=== PATIENT | male | born 1960 | race Caucasian/White ===

== ENCOUNTER 2021-03-27 18:33 | Inpatient (IN) | payer OTHER, SELFPAY ==
--- NOTE | ~2021-03-27 | CT_ITS ---
EXAMINATION: CT ANGIOGRAM HEAD CT ANGIOGRAM NECK CLINICAL INFORMATION: Stroke. COMPARISON: CT head from 03/27/2021. Brain MRI from 10/01/2018. TECHNIQUE: Initial noncontrast barrel line operator imaging of the head and neck was performed. Comparison is made with noncontrast head CT from earlier today. Test bolus sequences followed by intravenous administration 70 mL of Omnipaque 350. Helical imaging was performed in the axial plane from the aortic arch to the skull vertex. Delayed postcontrast imaging of the head was also performed. The data was processed at the cytotechnologist/histotechnologist's workstation for generation of MIP sequences. Angled MIPs and volume rendered reformatted images were also generated at an offline 3D workstation. Stenoses are assessed in accordance with NASCET criteria unless otherwise indicated. This CT examination was performed using dose optimization techniques as appropriate, variously including the following: *Automated exposure control. *Adjustment of mA and/or kV according to patient size (this includes techniques or standardized protocols for targeted exams where dose is matched to indication/reason for exam; i.e. extremities or head). *Use of iterative reconstruction technique. DLP: 1692 mGy-cm FINDINGS: CT Head: There is no evidence of acute intracranial hemorrhage or edematous territorial infarction. A few foci of hypoattenuation in the periventricular and deep white matter are consistent with mild microangiopathy. Garcia-white matter differentiation is preserved. The ventricles are normal in size and configuration. No evidence for obstructive hydrocephalus. No abnormal mass effect or midline shift. No extra-axial fluid collections. No pathologic intra-axial enhancement or regional oligemia. No acute soft tissue or osseous abnormalities. Mild mucosal thickening in the paranasal sinuses. The patient is edentulous. The mastoid air cells and middle ear cavities are well-aerated. CT Neck: The thyroid gland and remaining cervical soft tissues are within normal limits. Mild reversal of the normal cervical lordosis. Mild degenerative anterolisthesis of C3 on C4. Moderate degenerative disc disease from C3-C7 with disc-osteophyte, extrusion. Facet and uncovertebral joint arthropathy leads to osseous encroachment on the neural foramina from C3-C7. CT Upper Chest: The visualized lung apices and upper mediastinum are within normal limits. Neck CTA: Exam is moderately motion degraded. Aortic Arch: Normal contour and caliber. Classic 3 vessel branching pattern of the aortic arch. Great Vessel Origins: No significant stenosis of the branch origins. Right Common Carotid Artery: No focal stenosis or occlusion. Cervical Right Internal Carotid Artery: Mild calcific atherosclerotic disease of the carotid bulb and proximal internal carotid artery without flow-limiting stenosis. Left Common Carotid Artery: No focal stenosis or occlusion. Cervical Left Internal Carotid Artery: Calcific atherosclerotic disease of the carotid bulb and proximal internal carotid artery causing less than 50% stenosis. Cervical Right Vertebral Artery: No focal stenosis or occlusion. Cervical Left Vertebral Artery: Dominant. No focal stenosis or occlusion. Brain CTA: Intracranial Internal Carotid Arteries: Calcific atherosclerotic disease of the intracranial internal carotid arteries without occlusion or flow-limiting stenosis. No focal stenosis or occlusion. Right Anterior Cerebral Artery: Normal A1 segment. Normal opacification of the distal ISABELLA segments. Left Anterior Cerebral Artery: Normal A1 segment. Normal opacification of the distal ISABELLA segments. Anterior Communicating Artery: Slight ectatic appearance of the anterior making artery without overt aneurysm formation. Trifurcation of the anterior to indicating artery. Right Middle Cerebral Artery: Normal M1 segment of the MCA without focal stenosis or occlusion. Normal arborization of the distal segments. Left Middle Cerebral Artery: Normal M1 segment of the MCA without focal stenosis or occlusion. Normal arborization of the distal segments. Right Vertebral Artery: Normal V4 segment. Normal opacification of the proximal segments of the posterior inferior cerebellar artery. Left Vertebral Artery: Normal V4 segment. Normal opacification of the proximal segments of the posterior inferior cerebellar artery. Basilar Artery: Normal without focal stenosis or occlusion. Normal appearance of the proximal superior cerebellar arteries. Right Posterior Cerebral Artery: Normal P1 segment. Normal opacification of the distal PRICK STITCHER segments. Left Posterior Cerebral Artery: Normal P1 segment. Normal posterior communicating artery. Normal opacification of the distal PRICK STITCHER segments. Normal opacification of the superior sagittal, straight, transverse, and sigmoid sinuses. CT/CT angio head neck stroke IMPRESSION: 1. No evidence of acute intracranial hemorrhage or edematous territorial infarction. Mild underlying microangiopathy. 2. CTA of the head and neck without proximal occlusion or flow-limiting stenosis. This critical result was discussed with Dr. Valdivia at 21:23 on 03/27/2021 and it was ascertained that the content and urgency of the report was understood at the time of direct communication.
--- NOTE | ~2021-03-27 | XR_ITS ---
EXAMINATION: PORTABLE CHEST 1 VIEW CLINICAL INFORMATION: stroke . COMPARISON: 04/28/2009. TECHNIQUE: Portable frontal view of the chest was obtained. FINDINGS: The lungs are well expanded. No focal infiltrate, effusion, edema, or pneumothorax. Cardiac and mediastinal silhouettes are within normal limits for technique. No acute bony abnormality seen. XR/XR chest 1V IMPRESSION: No evidence of acute disease.
--- NOTE | ~2021-03-27 | CT_ITS ---
EXAMINATION: CT HEAD WITHOUT CONTRAST (STROKE PROTOCOL) CLINICAL INFORMATION: Stroke protocol. COMPARISON: MRI brain 10/01/2018, CT brain 09/30/2018 TECHNIQUE: Contiguous axial imaging was performed from the skull base to vertex without intravenous administration of contrast. This CT examination was performed using dose optimization techniques as appropriate, variously including the following: *Automated exposure control *Adjustment of mA and/or kV according to patient size (this includes techniques or standardized protocols for targeted exams where dose is matched to indication/reason for exam; i.e. extremities or head) *Use of iterative reconstruction technique DLP: 1066.2 mGy-cm FINDINGS: There is no intracranial hemorrhage, hematoma, or extra-axial fluid collection. The ventricles are normal in size. There is no hydrocephalus, edema, or mass effect. The arguelles-white matter differentiation appears symmetric. There is no acute infarct or mass lesion. Dilated basilar artery is similar to prior MR The calvarium appears intact. There is no pneumocephalus or orbital emphysema. The visualized sinuses and middle ears and mastoid air cells show no significant mucosal thickening. There are no air-fluid levels. There is minimal soft tissue thickening of the scalp, unchanged. CT/CT head for stroke IMPRESSION: No acute intracranial pathology. This critical result was discussed with Dr. Valdivia at 1909 hours on 03/27/2021. It was ascertained that the content and urgency of the report was understood at the time of direct communication.
--- NOTE | 2021-03-27 18:47 | ECG_ITS ---
Test Reason : STROKE Blood Pressure : / mmHG Vent. Rate : 082 BPM Atrial Rate : 082 BPM P-R Int : 122 ms QRS Dur : 094 ms QT Int : 364 ms P-R-T Axes : 024 000 048 degrees QTc Int : 425 ms Normal sinus rhythm Normal ECG When compared with ECG of 29-APR-2009 19:38, T wave inversion no longer evident in Inferior leads Referred By: Jackie Valdivia Electronically Signed By:ANIKET CARAIS
[2021-03-27 18:50] LABS: Glucose, Whole Blood 154 mg/dL (60-115)
--- NOTE | 2021-03-27 18:50 | ED.NEUROSD ---
HPI - Neuro Symptoms/Deficit General Chief Complaint: Stroke Stated Complaint: stroke? Time Seen by Provider: 03/27/21 18:47 Source: patient and family (Spouse) Mode of arrival: ambulatory Limitations: no limitations History of Present Illness HPI Narrative: 60-year-old male brought in by his for having right facial droop that started 13:00 about 6 hours ago, also noted that the patient had slurred speech about 50 minutes ago while eating dinner. Related Data Home Medications Medication Instructions Recorded Confirmed amlodipine 10 mg tablet 1 tab PO DAILY 03/27/21 03/27/21 aspirin 81 mg tablet 81 mg PO BEDTIME 03/27/21 03/27/21 doxazosin 4 mg tablet 1 tab PO DAILY 03/27/21 03/27/21 gabapentin 100 mg capsule 1 cap PO BEDTIME 03/27/21 03/27/21 irbesartan 150 mg tablet 1 tab PO DAILY 03/27/21 03/27/21 tadalafil 20 mg tablet 1 tab PO DAILY PRN 03/27/21 03/27/21 Allergies Allergy/AdvReac Type Severity Reaction Status Date / Time Penicillins Allergy Unknown HIVES Verified 03/27/21 19:44 Review of Systems Review of Systems: All other systems are reviewed and are negative Constitutional: Reports as per HPI and Reports no additional constitutional complaints Eyes: Reports as per HPI and Reports no additional eye complaints Reports system reviewed and no additional complaints, except as documented Cardiovascular: Reports as per HPI and Reports no additional cardiovascular complaints Respiratory: Reports as per HPI and Reports no additional respiratory complaints Gastrointestinal: Reports as per HPI and Reports no additional gastrointestinal complaints Genitourinary: Reports no additional female genitourinary complaints Musculoskeletal: Reports no additional musculoskeletal complaints Skin/Breast: Reports system reviewed and no additional complaints, except as docu Psychiatric: Reports no additional psychiatric complaints Endocrine: Reports no additional endocrine complaints Hematologic/Lymphatic: Reports no additional hematologic/lymphatic complaints Allergic/Immunologic: Reports no additional allergic/immunologic complaints Reports system reviewed and no additional complaints, except as documented and Reports Abnormal speech present [facility] Past Medical History Medical History (Updated 03/27/21 @ 22:34 by Jackie Valdivia MD) 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 Blood pressure elevated. Heart rate normal. Respiration rate normal. Temperature normal. Oxygen saturation normal. Appearance: Alert. Oriented X3. No acute distress. Head: Normal external exam. Normocephalic. Atraumatic. No Aguila signs noted. No raccoon eyes noted Eyes: PERRLA. EOMI. Conjunctiva and sclera normal. Eyelids normal. ENT: TM's Normal. Pharynx normal. Uvula midline. Moist mucous membranes. No trismus noted. No drooling noted. No muffled voice noted. Neck: Normal inspection. Neck supple. FROM. No adenopathy. Thyroid Normal. No meningeal signs. No neck mass noted. CVS: Normal heart rate and rhythm. Heart sound normal. No murmurs noted. Pulses normal throughout. Respiratory: No respiratory distress. Painless inspiration. Breath sounds normal. No wheezes/rales/rhonchi noted. Chest nontender. No accessory muscle usage noted or decreased air movement noted. Abdomen: Soft and nontender. Bowel sounds normal in all 4 quadrants. No distention noted. No organomegaly noted. No visible injury noted. Back: No CVA tenderness. Full range of motion noted. Skin: Skin warm and dry. Normal skin color. Normal skin turgor. No rashes/lesions/lacerations noted. Extremities: No lower extremity edema. Extremities exhibit normal range of motion. Extremities nontender. Neuro: Oriented X 3. Mild right facial droop (patient has no teeth with obese and non shaved face very difficult to appreciate the right facial droop), cannot determine if the paralysis involves the forehead are not for the above reason. No motor deficit. No sensory deficit. Reflexes normal. Course Course Course Narrative: Assessment and plan. 60-year-old male came in with right facial droop and slurred speech mostly noted by his but not very obvious on the clinical examination. Patient is above wait to get MRI study, patient had a negative CT head and CT angio of the head and neck for big artery occlusion. Patient presented to the emergency department 6 hours after the beginning of the symptoms, because also the uncertainty and minority of the symptoms patient is not a good candidate for tPA. The case discussed with Dr. Pepper who is in agreement for the above plan. MDM - Neuro Symptoms/Deficit Medical Records Attestation: I reviewed the patient's medical records. Lab Data Attestation: I reviewed the patient's lab results. Result diagrams: 03/27/21 18:54 03/27/21 18:54 Labs: Lab Results 03/27/21 03/27/21 03/27/21 Range/Units 18:45 18:46 18:54 WBC 6.5 (4.8-10.8) X10*3/uL RBC 4.70 (4.60-5.80) X10*6/uL Hgb 14.1 (14.0-18.0) g/dl Hct 40.7 L (42-52) % MCV 86.6 (80-98) fL MCH 30.0 (27.0-33.0) pg MCHC 34.6 (31.0-36.0) g/dl RDW 13.4 (11.0-16.0) % Plt Count 187 (160-400) X10*3/uL MPV 10.2 (9.4-12.4) fL Immature Gran % (Auto) 0.5 H (0.0-0.4) % Neut % (Auto) 78.9 H (45-73) % Lymph % (Auto) 11.7 L (20-40) % Branch % (Auto) 5.9 (2-11) % Eos % (Auto) 2.8 (0-4) % Baso % (Auto) 0.2 (0-2) % Lymph # (Auto) 0.8 L (1.2-4.9) X10*3/uL Branch # (Auto) 0.4 (0.1-1.2) X10*3/uL Eos # (Auto) 0.2 (0.0-0.4) X10*3/uL Baso # (Auto) 0.0 (0.0-0.2) X10*3/uL Abs Immat Gran (auto) 0.03 (0.00-0.03) X10*3/uL Absolute Neuts (auto) 5.1 (2.0-8.3) X10*3/uL Absolute Nucleated RBC 0.000 (0.0-0.012) X10*3/uL Nucleated RBC % (auto) 0.0 (0.0-0.2) /100WBC PT (9.9-13.0) SEC Whole Blood PT 13.9 H (11.1-13.5) sec INR (0.9-1.1) Whole Blood INR 1.2 H (0.9-1.1) APTT (24.1-38.0) SEC Sodium (135-145) mmol/L Potassium (3.3-5.1) mmol/L Chloride (96-108) mmol/L Carbon Dioxide (22-29) mmol/L Anion Gap (12-20) BUN (9-16) mg/dL Creatinine (0.5-1.4) mg/dL Estim Creat Clear Calc Estimated GFR POC Glucose 154 H (60-115) mg/dL Random Glucose (60-115) mg/dL Calcium (8.4-10.2) mg/dL Total Creatine Kinase (38-174) U/L Troponin I High Sens (<3.5-35.0) ng/L Urine Color Urine Appearance Urine pH (5.0-8.0) Ur Specific [place] (1.005-1.025) Urine Protein (NEG-TRACE) MG/DL Urine Glucose (UA) (NEG) MG/DL Urine Ketones (NEG) MG/DL Urine Blood (NEG) Urine Nitrite (NEG) Ur Leukocyte Esterase (NEG) 03/27/21 03/27/21 03/27/21 Range/Units 18:54 18:54 18:54 WBC (4.8-10.8) X10*3/uL RBC (4.60-5.80) X10*6/uL Hgb (14.0-18.0) g/dl Hct (42-52) % MCV (80-98) fL MCH (27.0-33.0) pg MCHC (31.0-36.0) g/dl RDW (11.0-16.0) % Plt Count (160-400) X10*3/uL MPV (9.4-12.4) fL Immature Gran % (Auto) (0.0-0.4) % Neut % (Auto) (45-73) % Lymph % (Auto) (20-40) % Branch % (Auto) (2-11) % Eos % (Auto) (0-4) % Baso % (Auto) (0-2) % Lymph # (Auto) (1.2-4.9) X10*3/uL Branch # (Auto) (0.1-1.2) X10*3/uL Eos # (Auto) (0.0-0.4) X10*3/uL Baso # (Auto) (0.0-0.2) X10*3/uL Abs Immat Gran (auto) (0.00-0.03) X10*3/uL Absolute Neuts (auto) (2.0-8.3) X10*3/uL Absolute Nucleated RBC (0.0-0.012) X10*3/uL Nucleated RBC % (auto) (0.0-0.2) /100WBC PT 11.8 (9.9-13.0) SEC Whole Blood PT (11.1-13.5) sec INR 1.0 (0.9-1.1) Whole Blood INR (0.9-1.1) APTT 34.9 (24.1-38.0) SEC Sodium 143 (135-145) mmol/L Potassium 4.0 (3.3-5.1) mmol/L Chloride 106 (96-108) mmol/L Carbon Dioxide 24 (22-29) mmol/L Anion Gap 17 (12-20) BUN 17 H (9-16) mg/dL Creatinine 0.81 (0.5-1.4) mg/dL Estim Creat Clear Calc 151.5 Estimated GFR > 60 POC Glucose (60-115) mg/dL Random Glucose 139 H (60-115) mg/dL Calcium 9.5 (8.4-10.2) mg/dL Total Creatine Kinase 264 H (38-174) U/L Troponin I High Sens 7.2 (<3.5-35.0) ng/L Urine Color Urine Appearance Urine pH (5.0-8.0) Ur Specific [place] (1.005-1.025) Urine Protein (NEG-TRACE) MG/DL Urine Glucose (UA) (NEG) MG/DL Urine Ketones (NEG) MG/DL Urine Blood (NEG) Urine Nitrite (NEG) Ur Leukocyte Esterase (NEG) 03/27/21 03/27/21 Range/Units 19:29 21:21 WBC (4.8-10.8) X10*3/uL RBC (4.60-5.80) X10*6/uL Hgb (14.0-18.0) g/dl Hct (42-52) % MCV (80-98) fL MCH (27.0-33.0) pg MCHC (31.0-36.0) g/dl RDW (11.0-16.0) % Plt Count (160-400) X10*3/uL MPV (9.4-12.4) fL Immature Gran % (Auto) (0.0-0.4) % Neut % (Auto) (45-73) % Lymph % (Auto) (20-40) % Branch % (Auto) (2-11) % Eos % (Auto) (0-4) % Baso % (Auto) (0-2) % Lymph # (Auto) (1.2-4.9) X10*3/uL Branch # (Auto) (0.1-1.2) X10*3/uL Eos # (Auto) (0.0-0.4) X10*3/uL Baso # (Auto) (0.0-0.2) X10*3/uL Abs Immat Gran (auto) (0.00-0.03) X10*3/uL Absolute Neuts (auto) (2.0-8.3) X10*3/uL Absolute Nucleated RBC (0.0-0.012) X10*3/uL Nucleated RBC % (auto) (0.0-0.2) /100WBC PT (9.9-13.0) SEC Whole Blood PT (11.1-13.5) sec INR (0.9-1.1) Whole Blood INR (0.9-1.1) APTT (24.1-38.0) SEC Sodium (135-145) mmol/L Potassium (3.3-5.1) mmol/L Chloride (96-108) mmol/L Carbon Dioxide (22-29) mmol/L Anion Gap (12-20) BUN (9-16) mg/dL Creatinine (0.5-1.4) mg/dL Estim Creat Clear Calc Estimated GFR POC Glucose 116 H (60-115) mg/dL Random Glucose (60-115) mg/dL Calcium (8.4-10.2) mg/dL Total Creatine Kinase (38-174) U/L Troponin I High Sens (<3.5-35.0) ng/L Urine Color YELLOW Urine Appearance CLEAR Urine pH 7.0 (5.0-8.0) Ur Specific [place] 1.010 (1.005-1.025) Urine Protein TRACE (NEG-TRACE) MG/DL Urine Glucose (UA) NEG (NEG) MG/DL Urine Ketones NEG (NEG) MG/DL Urine Blood NEG (NEG) Urine Nitrite NEG (NEG) Ur Leukocyte Esterase NEG (NEG) Imaging Data Chest x-ray: Radiologist's impression: No evidence of acute disease. CT scan - head: Radiologist's impression: No acute intracranial pathology. CT angiogram of head and neck: Radiologist's impression: 1. No evidence of acute intracranial hemorrhage or edematous territorial infarction. Mild underlying microangiopathy. 2. CTA of the head and neck without proximal occlusion or flow-limiting stenosis. ? ECG Data Interpretation: Normal sinus rhythm at 82 beats per minutes, left axis deviation, normal intervals. NIH Stroke Scale Level of Consciousness: Alert Level of Consciousness Questions: Answers both questions correctly Level of Consciousness Commands: Performs both tasks correctly Best Gaze: Normal Visual: No visual loss Facial Palsy: Minor paralyis Motor Arm (Right): No drift Motor Arm (Left): No drift Motor Leg (Right): No drift Motor Leg (Left): No drift Limb Ataxia: Absent Sensory: Normal Best Language: Mild to moderate aphasia Dysarthia: Normal Extinction and Inattention: No abnormality Score: 2 Discharge Plan Discharge Clinical Impression: Facial weakness, Slurred speech Patient Disposition: Admitted As Inpatient Prescriptions: No Action amlodipine 10 mg tablet 1 tab PO DAILY RF: 0 doxazosin 4 mg tablet 1 tab PO DAILY RF: 0 aspirin 81 mg Tablet 81 mg PO BEDTIME RF: 0 gabapentin 100 mg capsule 1 cap PO BEDTIME RF: 0 irbesartan 150 mg tablet 1 tab PO DAILY RF: 0 tadalafil 20 mg tablet 1 tab PO DAILY PRN (Reason: intercourse) RF: 0
[2021-03-27 18:51] LABS: Prothrombin Time Whole Bld POC 13.9 sec (11.1-13.5); ~PT, ~INR - Anti Coag Clinic 1.2 (0.9-1.1)
[2021-03-27 18:52] VITALS: BP 211/87; PULSE 87; RESP 20; O2SAT 99; BMI 52.6
[2021-03-27 19:03] LABS: MANUAL DIFF FLAG NO
[2021-03-27 19:04] LABS: Basophils Percent Auto 0.2 % (0-2); Eosinophils Absolute Auto 0.2 X10*3/uL (0.0-0.4); Eosinophils Percent Auto 2.8 % (0-4); Hematocrit 40.7 % (42-52); Hemoglobin 14.1 g/dl (14.0-18.0); Imm Gran Abs Auto 0.03 X10*3/uL (0.00-0.03); Imm Gran Pct Auto 0.5 % (0.0-0.4); Lymphocytes Absolute Auto 0.8 X10*3/uL (1.2-4.9); Lymphocytes Percent Auto 11.7 % (20-40); Mean Corpuscular HGB Conc 34.6 g/dl (31.0-36.0); Mean Corpuscular Volume 86.6 fL (80-98); Mean Platelet Volume 10.2 fL (9.4-12.4); Monocytes Absolute Auto 0.4 X10*3/uL (0.1-1.2); Monocytes Percent Auto 5.9 % (2-11); Neutrophils Absolute Auto 5.1 X10*3/uL (2.0-8.3); Neutrophils Percent Auto 78.9 % (45-73); Platelet Count 187 X10*3/uL (160-400); Red Cell Distribution Width 13.4 % (11.0-16.0); White Blood Count 6.5 X10*3/uL (4.8-10.8)
--- NOTE | 2021-03-27 19:06 | PC.NURSE ---
Pt just returned to room from main CT. Pt aaox4, reports R temporal CALVIN x few days, intermittent. Tonight around 1815 while eating dinner, pt's noticed R sided facial droop and mildly slurred speech. At bedside at this time, this RN appreciates mild R side facial droop and R eyelid droop with R eye redness. Pupils are equal in size and reactive to light. Pt speech sounds clear to this RN but pt's reports I think his speech is getting a slurred again right now. Pt states the roland is blue over [place] to this RN and no slurred speech is appreciated but pt's states I think he's really working to make it sound clear and shrugs when this RN asks her if pt's speech is normal, at this time, for pt's baseline. Pt with equal hand grasps bilaterally as well as BUE good and equal effort against gravity. Pt with equal and strong BLE effort against gravity as well as equal and strong dorsiflexion and plantarflexion. Pt c/o R temporal throbbing CALVIN about 2-3/10 in severity. Pt denies blurred vision/double vision. Stretcher low locked, rails raised, call jordan within reach, to remain at bedside at this time. Pt NSR on bedside case monitor. Labs obtained prior to CT and sent for processing.
[2021-03-27 19:10] LABS: Prothrombin Time 11.8 SEC (9.9-13.0)
[2021-03-27 19:13] LABS: Partial Thromboplastin Time 34.9 SEC (24.1-38.0); Stroke Lab Use COMPLETE
[2021-03-27 19:29] LABS: Anion Gap 17 (12-20); Blood Urea Nitrogen 17 mg/dL (9-16); Calcium 9.5 mg/dL (8.4-10.2); Carbon Dioxide 24 mmol/L (22-29); Chloride 106 mmol/L (96-108); Creatinine Clr Calc Pharmacy 151.5; Estimated Glomerular Filt Rate > 60; Glucose Random 139 mg/dL (60-115); Sodium 143 mmol/L (135-145)
[2021-03-27 19:31] LABS: Troponin-I High Sensitivity 7.2 ng/L (<3.5-35.0)
[2021-03-27 19:35] LABS: Glucose, Whole Blood 116 mg/dL (60-115)
[2021-03-27 19:36] VITALS: BP 151/86; PULSE 83; RESP 18; TEMP 37.2; O2SAT 97
--- NOTE | 2021-03-27 20:02 | PC.NURSE ---
MRI form completed by this RN with pt.
[2021-03-27 21:22] VITALS: BP 150/81; PULSE 80; RESP 14; TEMP 37.1; O2SAT 96
[2021-03-27 21:34] LABS: Glucose Urine UA NEG (NEG); Leukocyte Esterase Urine NEG (NEG); Nitrite Urine NEG (NEG); Urine Blood NEG (NEG); Urine Ketones NEG (NEG); Urine Protein TRACE MG/DL (NEG-TRACE)
[2021-03-27 21:35] LABS: Appearance Urine CLEAR; Color Urine YELLOW
[2021-03-27 22:00] VITALS: BP 149/79; PULSE 77; RESP 19; O2SAT 96
[2021-03-27] MEDS: Aspirin Enteric Coated 81 MG TABLET.DR PO (22:13)
[2021-03-27 23:20] LABS: Influenza A PCR NEGATIVE (Negative); Influenza B PCR NEGATIVE (Negative); Resp Syncy Virus RNA Qual PCR NEGATIVE (Negative); SARS COV2 PCR INHOUSE NEGATIVE (Negative)
[2021-03-27 23:51] VITALS: BP 151/80; PULSE 75; RESP 23; O2SAT 95
--- NOTE | 2021-03-27 23:54 | PC.NURSE ---
Pt resting on stretcher in nad, breathing with ease on RA, VSS as documented. Pt continues to endorse mild R sided headache. Pt neuro checks completed at this time. Pt continues to have strong and equal BUE hand grasps as well as effort against gravity. Pt continues to have strong and equal BLE effort against gravity. Pt without c/o numbness/tingling/loss of sensation. This RN appreciates very mild R sided facial droop, R eyelid droop. Both unchanged from previous. Pt with clear speech. Bed in low locked position, rails raised, call jordan within reach. at bedside. HOB >/= 30 degrees. Pt awaiting bed assignment, is aware and agreeable.
--- NOTE | 2021-03-28 02:09 | P.HPHOSP_ITS ---
History of Present Illness Date of Service: 03/27/21 Chief Complaint: Facial droop 60-year-old male with history of hypertension, obstructive sleep apnea (on CPAP), prior history of Guillain-Mosca syndrome, who presented with facial droop and slurred speech. History is from the patient, the patient's (who was at bedside), and ED notes. Patient endorses that he has been having headache for the past 4 days (above his right ear). Today (03/27/21) at around 6:15 p.m., while he was eating supper, his noted some right sided facial droop and some slurred speech. Patient also realized that he had some drooping of the right eyelid. Subsequently, the patient went to the ED. Pertinent findings in the ED include: Blood pressure was initially elevated as high as 211/87, heart rate as high as 128. Otherwise labs and imaging were unremarkable. The patient is being admitted for stroke-like symptoms. Because the patient was beyond the 4.5 hour time limit, code stroke was not initiated. Review of Systems Constitutional: Constitutional: Denies chills, Denies fatigue, Denies fever(s), Reports headache(s), Denies weakness and Denies weight loss Eyes: Eyes: Denies blurry vision, Denies change in vision, Denies diplopia and Denies loss of vision ENT: Denies dysphagia, Denies vertigo, Denies dizziness, Reports headache(s), Denies hearing loss, Denies lip swelling and Denies sore throat Cardiovascular: Cardiovascular: Denies chest pain, Denies leg edema, Denies lightheadedness, Denies palpitations and Denies dyspnea Respiratory: Respiratory: Denies no additional respiratory complaints, Denies cough, Denies dyspnea and Denies wheezing Gastrointestinal: Gastrointestinal: Denies coffee ground emesis, Denies constipation, Denies dysphagia, Denies diarrhea, Denies nausea and Denies vomiting Genitourinary: Genitourinary: Denies dysuria Musculoskeletal: Musculoskeletal: Denies arthralgias, Denies muscle weakness, Denies numbness and Denies tingling Integumentary/Breasts: Skin/Breast: Denies bleeding lesions, Denies new lesions and Denies rash Neurologic: Denies vertigo, Denies dizziness, Reports headache(s), Denies loss of vision, Denies numbness, Denies tingling and Denies weakness Comments: Right facial droop, slurred speech Psychiatric: Psychiatric: Denies anxiety and Denies depression Endocrine: Endocrine: Denies cold intolerance, Denies fatigue, Denies heat intolerance and Denies palpitations Hematologic/Lymphatic: Hematologic/Lymphatic: Denies easy bleeding, Denies easy bruising and Denies lymphadenopathy Allergic/Immunologic: Allergic/Immunologic: Denies lip swelling and Denies wheezing [facility] Medical History (Updated 03/28/21 @ 02:18 by Jean Claude Rm MD) 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 HTN (hypertension) JR on CPAP Pertinent family history: Father with MT. Mother with CKD. Social History Alcohol intake: never Patient Tobacco Use Status: Never used Tobacco Use of substances other than those prescribed or required for medical reasons: No Advance Directives: No Advance Directives Information Provided: Yes Meds Allergies Allergy/AdvReac Type Severity Reaction Status Date / Time Penicillins Allergy Unknown HIVES Verified 03/27/21 19:44 Active Medications: Current Medications Generic Name Dose Route Start Last Admin Trade Name Freq PRN Reason Stop Dose Admin Acetaminophen 650 mg 03/27/21 23:20 Acetaminophen 325 Mg Tablet PO Q6H PRN Pain, Mild (Pain Scale 1-3) Aspirin 325 mg 03/28/21 09:00 Aspirin 325 Mg Tablet PO DAILY [facility] Atorvastatin Calcium 80 mg 03/28/21 09:00 Atorvastatin Calcium 80 Mg Tablet PO DAILY [facility] Doxazosin Mesylate 4 mg 03/28/21 09:00 Doxazosin Mesylate 2 Mg Tablet PO DAILY [facility] Protocol Gabapentin 100 mg 03/28/21 21:00 Gabapentin 100 Mg Capsule PO BEDTIME [facility] Hydralazine HCl 10 mg 03/27/21 23:32 Hydralazine Hcl 20 Mg/Ml Vial IVPUSH Q1H PRN Give for SBP > 220 Protocol Labetalol HCl 10 mg 03/27/21 23:32 Labetalol Hcl 100 Mg/20 Ml Vial IVPUSH Q1H PRN For SBP > 220 OR DBP > 110 Protocol Home Medications Medication Instructions Recorded Confirmed Last Taken Type amlodipine 10 mg tablet 1 tab PO DAILY 03/27/21 03/27/21 Unknown History aspirin 81 mg tablet 81 mg PO BEDTIME 03/27/21 03/27/21 Unknown History doxazosin 4 mg tablet 1 tab PO DAILY 03/27/21 03/27/21 Unknown History gabapentin 100 mg capsule 1 cap PO BEDTIME 03/27/21 03/27/21 Unknown History irbesartan 150 mg tablet 1 tab PO DAILY 03/27/21 03/27/21 Unknown History tadalafil 20 mg tablet 1 tab PO DAILY PRN 03/27/21 03/27/21 Unknown History Physical Exam Vital Signs and Narrative: Vital Signs: Last Vital Signs Temp 98.7 F 03/27/21 21:22 Pulse 75 03/27/21 23:51 Resp 23 H 03/27/21 23:51 BP 151/80 H 03/27/21 23:51 Pulse Ox 95 03/27/21 23:51 Body Mass Index 52.6 Const: General: no acute distress, well developed and alert HENMT: Face and sinus: Yes normal facial exam and Yes face symmetric Mouth: Normal oral and palatal mucosa present and moist mucous membranes Throat: Yes posterior oropharynx normal and Yes tonsils normal Eyes: General: appearance normal, both eyes and all related structures Alignment and Position: alignment normal and position normal Sclerae: sclerae normal Pupils: Equal, round and reactive pupils present EOM: EOMs intact bilaterally Neck: Yes normal visual inspection, Yes full ROM and Yes no lymphadenopathy Lymphatic: no lymphadenopathy noted Chest: Chest palpation & inspection: normal inspection of the chest, no tenderness and No rash Resp: Effort & Inspection: normal respiratory effort and able to speak in complete sentences Auscultation: clear to auscultation bilaterally, no crackles, no rales, no rhonchi and no wheezes Cardio: Rate: regular rate Rhythm: regular rhythm Heart sounds: S1 normal heart sound present, S2 normal heart sound present, no murmurs and no rubs GI: Inspection: No distended Palpation (GI): Soft to palpation and nontender Percussion: No tympanic to percussion Auscultation: normal bowel sounds Skin: Rashes: no rashes Trauma: no lacerations or abrasions Wounds: no wounds Neuro: Cranial nerves: Yes CN's II-XII intact bilaterally, Yes Equal, round and reactive pupils present and Yes Bilaterally intact EOM present Extrem: General: Yes full ROM and Yes no pedal edema Psych: Appearance: grossly normal Mental Status: mental status grossly normal Speech and movement: Normal speech and movement present Affect: normal affect Thought process: Normal thought process present Results Labs CBC and Chem 7: 03/27/21 18:54 03/27/21 18:54 Labs: Laboratory Results - last 24 hr 03/27/21 03/27/21 03/27/21 18:45 18:46 18:54 MCV 86.6 MCH 30.0 MCHC 34.6 RDW 13.4 Plt Count 187 MPV 10.2 Immature Gran % (Auto) 0.5 H Neut % (Auto) 78.9 H Lymph % (Auto) 11.7 L [place] % (Auto) 5.9 Eos % (Auto) 2.8 Baso % (Auto) 0.2 Lymph # (Auto) 0.8 L [place] # (Auto) 0.4 Eos # (Auto) 0.2 Baso # (Auto) 0.0 Abs Immat Gran (auto) 0.03 Absolute Neuts (auto) 5.1 Absolute Nucleated RBC 0.000 Nucleated RBC % (auto) 0.0 PT Whole Blood PT 13.9 H INR Whole Blood INR 1.2 H APTT Anion Gap Estim Creat Clear Calc Estimated GFR POC Glucose 154 H Random Glucose Calcium Total Creatine Kinase Troponin I High Sens Urine Color Urine Appearance Urine pH Ur Specific [place] Urine Protein Urine Glucose (UA) Urine Ketones Urine Blood Urine Nitrite Ur Leukocyte Esterase Coronavirus (PCR) Influenza Type A (PCR) Influenza Type B (PCR) RSV RNA Qual (PCR) 03/27/21 03/27/21 03/27/21 18:54 18:54 18:54 MCV MCH MCHC RDW Plt Count MPV Immature Gran % (Auto) Neut % (Auto) Lymph % (Auto) [place] % (Auto) Eos % (Auto) Baso % (Auto) Lymph # (Auto) [place] # (Auto) Eos # (Auto) Baso # (Auto) Abs Immat Gran (auto) Absolute Neuts (auto) Absolute Nucleated RBC Nucleated RBC % (auto) PT 11.8 Whole Blood PT INR 1.0 Whole Blood INR APTT 34.9 Anion Gap 17 Estim Creat Clear Calc 151.5 Estimated GFR > 60 POC Glucose Random Glucose 139 H Calcium 9.5 Total Creatine Kinase 264 H Troponin I High Sens 7.2 Urine Color Urine Appearance Urine pH Ur Specific [place] Urine Protein Urine Glucose (UA) Urine Ketones Urine Blood Urine Nitrite Ur Leukocyte Esterase Coronavirus (PCR) Influenza Type A (PCR) Influenza Type B (PCR) RSV RNA Qual (PCR) 03/27/21 03/27/21 03/27/21 19:29 21:21 22:12 MCV MCH MCHC RDW Plt Count MPV Immature Gran % (Auto) Neut % (Auto) Lymph % (Auto) [place] % (Auto) Eos % (Auto) Baso % (Auto) Lymph # (Auto) [place] # (Auto) Eos # (Auto) Baso # (Auto) Abs Immat Gran (auto) Absolute Neuts (auto) Absolute Nucleated RBC Nucleated RBC % (auto) PT Whole Blood PT INR Whole Blood INR APTT Anion Gap Estim Creat Clear Calc Estimated GFR POC Glucose 116 H Random Glucose Calcium Total Creatine Kinase Troponin I High Sens Urine Color YELLOW Urine Appearance CLEAR Urine pH 7.0 Ur Specific [place] 1.010 Urine Protein TRACE Urine Glucose (UA) NEG Urine Ketones NEG Urine Blood NEG Urine Nitrite NEG Ur Leukocyte Esterase NEG Coronavirus (PCR) NEGATIVE Influenza Type A (PCR) NEGATIVE Influenza Type B (PCR) NEGATIVE RSV RNA Qual (PCR) NEGATIVE Imaging Radiologist's Impressions: Impressions Chest X-Ray 03/27/21 18:47 IMPRESSION: No evidence of acute disease. Head CT 03/27/21 18:47 IMPRESSION: No acute intracranial pathology. This critical result was discussed with Dr. Valdivia at 1909 hours on 03/27/2021. It was ascertained that the content and urgency of the report was understood at the time of direct communication. Head/Neck CTA 03/27/21 19:51 IMPRESSION: 1. No evidence of acute intracranial hemorrhage or edematous territorial infarction. Mild underlying microangiopathy. 2. CTA of the head and neck without proximal occlusion or flow-limiting stenosis. This critical result was discussed with Dr. Valdivia at 21:23 on 03/27/2021 and it was ascertained that the content and urgency of the report was understood at the time of direct communication. Assessment and Plan (1) Stroke-like symptoms: Status: Acute (2) HTN (hypertension): Status: Acute (3) JR on CPAP: Status: Acute Stroke-like symptoms: -according to ED physician, patient was beyond the 4.5 hour window (patient was having headache for 4 days,), therefore code stroke was not initiated -stroke order set initiated, including neurology consult, full-dose aspirin daily, echocardiogram, and neurology checks -MRI was ordered in the ED, but the patient was too large (there is a 350 lb limit, the patient is slightly above this). Defer to Neurology -I have implemented permissive hypertension, including holding the patient's home antihypertensive medications, as well as ordering IV labetalol and IV hydralazine for systolic blood pressures over 220 or diastolic blood pressures above 110 -statin ordered Hypertension: -held antihypertensive medications to get allow for permissive hypertension (please see above) Obstructive sleep apnea on CPAP: -Ordered CPAP FEN: Cardiac diet CODE STATUS: FULL CODE DISPO: Admit to Inpatient. Quality Stroke Does the patient have a stroke diagnosis?: Yes Reason for No Anti-thrombotic by Day Two: N/A - Med Ordered VTE Prior VTE?: No VTE Risk Level:: Medical - moderate - high VTE Device Contraindication: N/A - Device Ordered VTE Drug Contraindication: N/A - Med Ordered
--- NOTE | 2021-03-28 02:24 | PC.NURSE ---
800mls of urine emptied from urinal
[2021-03-28 06:58] LABS: MANUAL DIFF FLAG NO
[2021-03-28 07:02] LABS: Basophils Percent Auto 0.5 % (0-2); Eosinophils Absolute Auto 0.1 X10*3/uL (0.0-0.4); Eosinophils Percent Auto 2.6 % (0-4); Hematocrit 40.7 % (42-52); Hemoglobin 13.8 g/dl (14.0-18.0); Imm Gran Abs Auto 0.02 X10*3/uL (0.00-0.03); Imm Gran Pct Auto 0.4 % (0.0-0.4); Lymphocytes Absolute Auto 0.7 X10*3/uL (1.2-4.9); Lymphocytes Percent Auto 12.2 % (20-40); Mean Corpuscular HGB Conc 33.9 g/dl (31.0-36.0); Mean Corpuscular Hemoglobin 29.6 pg (27.0-33.0); Mean Corpuscular Volume 87.3 fL (80-98); Monocytes Absolute Auto 0.5 X10*3/uL (0.1-1.2); Monocytes Percent Auto 8.8 % (2-11); Neutrophils Absolute Auto 4.1 X10*3/uL (2.0-8.3); Neutrophils Percent Auto 75.5 % (45-73); Platelet Count 188 X10*3/uL (160-400); Red Blood Count 4.66 X10*6/uL (4.60-5.80); Red Cell Distribution Width 13.5 % (11.0-16.0); White Blood Count 5.5 X10*3/uL (4.8-10.8)
--- NOTE | 2021-03-28 07:24 | PC.NURSE ---
report taken from christie morin pt here w r side facial droop, outside of tpa tx window on arrival. pt continues to have slight r side facial droop, otherwise neuros grossly intact. tolerating po w/o issues w swallow, pt c/o that water sometimes leaks out r side of mouth. awaiting report to interactive media marketing director. [facility]ctm for dc needs.
[2021-03-28 07:29] LABS: Anion Gap 15 (12-20); Blood Urea Nitrogen 19 mg/dL (9-16); Calcium 9.3 mg/dL (8.4-10.2); Carbon Dioxide 23 mmol/L (22-29); Chloride 109 mmol/L (96-108); Cholesterol 163 mg/dL; Creatinine Clr Calc Pharmacy 159.1; Estimated Glomerular Filt Rate > 60; Glucose Random 121 mg/dL (60-115); HDL Cholesterol 39 mg/dL; LDL Cholesterol Calculated 96 mg/dl; Potassium 3.8 mmol/L (3.3-5.1); Sodium 143 mmol/L (135-145); Triglycerides 144 mg/dL
--- NOTE | 2021-03-28 08:00 | CA_ITS ---
Transthoracic Echocardiogram Patient (Last, First, Middle): Vin Gambino T Gender: Male Date of : 1960 Age: 60 Procedure Date: 03/28/2021 Procedure Type: Transthoracic Echocardiogram Location: S3E Height: 177.8 cm Weight: 166.02 kg BSA: 2.70 m2 Heart Rate: bpm BP: 151 / 80 mmHg Nursing Education Consultant: ANN Referring MD: Jean Claude Rm MD Mobile Pet Groomer: Bhavin Govea MD Symptoms: Stroke symtpoms Study Quality: Fair/Contrast ECG Rhythm: Sinus Conclusions: - 1. Normal LV systolic function with grade 1 diastolic dysfunction 2. Normal cardiac valvular Doppler with mild mitral and calcification 3. Normal RV systolic pressure 4. No pericardial effusion Findings Procedure Information Contrast agent, definity, is being given per protocol without apparent complications. Left Ventricle Normal left ventricular size, thickness, and systolic function. The visually estimated ejection fraction is between 60-65%. Spectral Doppler is indicative of an impaired relaxation filling pattern. E/E prime ratio is <8, consistent with normal filling pressures. Evidence suggests grade I (mild) diastolic dysfunction. Right Ventricle Normal right ventricular cavity size and systolic function. Atria The left atrium is likely dilated. Interatrial shunt cannot be excluded. The right atrium was not well visualized. Aortic Valve The aortic valve structure and function is likely normal. There is no aortic valve stenosis. There is no aortic valve regurgitation. Mitral Valve There is mild anterior mitral leaflet thickening. There is mild mitral annular calcification. There is trace mitral valve regurgitation. There is no mitral valve stenosis. Pulmonic Valve The pulmonic valve was not well visualized. Tricuspid Valve The tricuspid valve was not well visualized. There is trace tricuspid valve regurgitation. The right ventricular systolic pressure is normal. The right ventricular systolic pressure is 22 mmHg. There is no evidence of pulmonary hypertension. Great Vessels All visible segments of the aorta are normal in size. The pulmonary artery was not well visualized. Pericardium/Pleural There is no evidence of pericardial effusion. Prior Study Comparison No previous study in the last 5 years for comparison Measurements 2D Linear Measurements IVSd: 1.09 0.6-0.9/0.6-1.0 cm LVIDd: 4.92 3.9-5.3/4.2-5.9 cm LVIDd Index: 1.82 2.4-3.2/2.2-3.1 cm/m2 LVIDs: 3.27 2.0-3.6 cm LVPWd: 1.11 0.7-1.1 cm Ao Root: 3.50 2.1-3.5 cm LA Diam: 5.20 2.7-3.8/3.0-4.0 cm LAIDs Index: 1.93 1.5-2.3 cm/m2 LV Mass: 251.52 67-162/88-224 g LV Mass Index: 93.16 43-95/49-115 g/m2 LVOT Diam: 2.30 3.0+(-)1.3 cm 2D Systolic Function EF 4C: 64.50 >55% EF 2C: 66.00 >55% EF BiP: 65.00 >55% Mitral Valve MV Pk E: 1.08 MV PK A: 0.89 MV Decel Time: 164.00 E/A: 1.20 E'Lateral: 11.30 E'Medial: 8.38 E/E' Med: 12.90 E/E' Lat: 9.60 PHT: 48.00 MVA PHT: 4.58 Decel Gilchrist: 6.58 Aortic Valve AoV Pk Juan Miguel: 1.58 AoV Mn Juan Miguel: 1.23 AoV VTI: 0.32 AoV Pk Grad: 10.00 Aov Mn Grad: 7.00 ASHLEY Cont.VTI: 2.81 LVOT LVOT Pk Juan Miguel: 1.02 LVOT Mn Juan Miguel: 0.71 LVOT VTI: 0.22 LVOT Pk Grad: 4.00 LVOT Mn Grad: 2.00 LVOT Diam: 2.30 LVOT Area: 4.15 Diastolic Function MV Pk E: 1.08 MV Pk A: 0.89 E/A: 1.20 E'Medial: 8.38 E/E' Med: 12.90 E' Laterial: 11.30 E/E' Lat: 9.60 Right Ventricle TAPSE (mm): 2.53 TVS' Juan Miguel: 14.30 Tricuspid Valve TR Pk Juan Miguel: 1.85 TR Pk Grad: 14.00 RA Press: 8.00 RVSP: 22.00 Great Vessels Aorta Ao Root-2D: 3.50 2.0-3.7 cm Ao Asc: 3.70 2.1-3.4 cm Ao Arch: 3.30 Updated in Other Vendor System with Status of Final Bhavin Govea MD electronically signed on 03/28/2021 2:30:43 PM with status of Final
[2021-03-28 08:07] VITALS: BP 195/93; PULSE 75; RESP 19; TEMP 36.8; O2SAT 97
[2021-03-28 08:22] LABS: Glucose, Whole Blood 115 mg/dL (60-115)
[2021-03-28 09:15] VITALS: BP 195/93; PULSE 75; O2SAT 97
--- NOTE | 2021-03-28 09:37 | MHC.CM.PN ---
pt lives c his in their home. he reports being independent in his care. 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 his can help him c any needs he may have including a ride home at dc. pt denies the need for vna at dc. dc plan is home no svcs. cm to cont. to follow.
[2021-03-28 10:33] VITALS: BP 171/86; PULSE 71
[2021-03-28] MEDS: Doxazosin Mesylate 2 MG TABLET 4 MG PO (10:33)
[2021-03-28] MEDS: Aspirin 325 MG TABLET PO (10:33)
[2021-03-28] MEDS: Atorvastatin Calcium 80 MG TABLET PO (10:33)
--- NOTE | 2021-03-28 10:58 | PC.NURSE ---
Skin assessment completed today. No skin issues were noted today. Patient is ambulatory and moves on his own.
--- NOTE | 2021-03-28 13:16 | PM.NEUROCN ---
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 Overnight, the symptoms have been stable. There was no pain behind the ear. There was no weakness in his limbs or balance problems or dizziness. Review of Systems Review of Systems: All other systems are reviewed and are negative Constitutional: Reports as per HPI and Reports no additional constitutional complaints Eyes: Reports as per HPI and Reports no additional eye complaints Reports system reviewed and no additional complaints, except as documented Cardiovascular: Reports as per HPI and Reports no additional cardiovascular complaints Respiratory: Reports as per HPI and Reports no additional respiratory complaints Gastrointestinal: Reports as per HPI and Reports no additional gastrointestinal complaints Genitourinary: Reports no additional female genitourinary complaints Musculoskeletal: Reports no additional musculoskeletal complaints Skin/Breast: Reports system reviewed and no additional complaints, except as docu Psychiatric: Reports no additional psychiatric complaints Endocrine: Reports no additional endocrine complaints Hematologic/Lymphatic: Reports no additional hematologic/lymphatic complaints Allergic/Immunologic: Reports no additional allergic/immunologic complaints Reports system reviewed and no additional complaints, except as documented and Reports Abnormal speech present Constitutional: Constitutional: Denies chills, Denies fatigue, Denies fever(s), Reports headache(s), Denies weakness and Denies weight loss Eyes: Eyes: Denies blurry vision, Denies change in vision, Denies diplopia and Denies loss of vision ENT: Denies dysphagia, Denies vertigo, Denies dizziness, Reports headache(s), Denies hearing loss, Denies lip swelling and Denies sore throat Cardiovascular: Cardiovascular: Denies chest pain, Denies leg edema, Denies lightheadedness, Denies palpitations and Denies dyspnea Respiratory: Respiratory: Denies no additional respiratory complaints, Denies cough, Denies dyspnea and Denies wheezing Gastrointestinal: Gastrointestinal: Denies coffee ground emesis, Denies constipation, Denies dysphagia, Denies diarrhea, Denies nausea and Denies vomiting Genitourinary: Genitourinary: Denies dysuria Musculoskeletal: Musculoskeletal: Denies arthralgias, Denies muscle weakness, Denies numbness and Denies tingling Integumentary/Breasts: Skin/Breast: Denies bleeding lesions, Denies new lesions and Denies rash Neurologic: Denies vertigo, Denies dizziness, Reports headache(s), Denies loss of vision, Denies numbness, Denies tingling and Denies weakness Psychiatric: Psychiatric: Denies anxiety and Denies depression Endocrine: Endocrine: Denies cold intolerance, Denies fatigue, Denies heat intolerance and Denies palpitations Hematologic/Lymphatic: Hematologic/Lymphatic: Denies easy bleeding, Denies easy bruising and Denies lymphadenopathy Allergic/Immunologic: Allergic/Immunologic: Denies lip swelling and Denies wheezing PMFSH Past Medical History Medical History (Updated 03/28/21 @ 13:19 by Benson Pepper MD) 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 Mother with CKD. Social History Social History Household Members: Spouse Housing: House Do you presently have visiting nurse or other home services: No Alcohol intake: never Patient Tobacco Use Status: Never used Tobacco Use of substances other than those prescribed or required for medical reasons: No Have you been hit, kicked, punched, or otherwise hurt by someone within the past year? If so, by whom?: No Do you feel safe in your current relationship?: Yes Is there a partner from a previous relationship who is making you feel unsafe now?: No Are you made to feel afraid or neglected: No Advance Directives: No Advance Directives Information Provided: Yes Do you have thoughts of harming others: None Do you have a plan to hurt others: No Plan Recently lost weight without trying: No Nutrition Risks: No Nutritional Risk and On aspiration precautions Poor oral hygiene: No service: No Current occupational status: employed Meds Allergies Allergy/AdvReac Type Severity Reaction Status Date / Time Penicillins Allergy Unknown HIVES Verified 03/27/21 19:44 Active Medications: Current Medications Generic Name Dose Route Start Last Admin Trade Name Freq PRN Reason Stop Dose Admin Acetaminophen 650 mg 03/27/21 23:20 Acetaminophen 325 Mg Tablet PO Q6H PRN Pain, Mild (Pain Scale 1-3) Aspirin 325 mg 03/28/21 09:00 03/28/21 10:33 Aspirin 325 Mg Tablet PO 325 mg DAILY CHRISTIANO Administration Atorvastatin Calcium 80 mg 03/28/21 09:00 03/28/21 10:33 Atorvastatin Calcium 80 Mg Tablet PO 80 mg DAILY CHRISTIANO Administration Doxazosin Mesylate 4 mg 03/28/21 09:00 03/28/21 10:33 Doxazosin Mesylate 2 Mg Tablet PO 4 mg DAILY CHRISTIANO Administration Protocol Enoxaparin Sodium 40 mg 03/28/21 03:00 03/28/21 07:15 Enoxaparin Sodium 40 Mg/0.4 Ml Syringe SUBCUT Not Given Q24H [facility] Gabapentin 100 mg 03/28/21 21:00 Gabapentin 100 Mg Capsule PO BEDTIME [facility] Hydralazine HCl 10 mg 03/27/21 23:32 Hydralazine Hcl 20 Mg/Ml Vial IVPUSH Q1H PRN Give for SBP > 220 Protocol Labetalol HCl 10 mg 03/27/21 23:32 Labetalol Hcl 100 Mg/20 Ml Vial IVPUSH Q1H PRN For SBP > 220 OR DBP > 110 Protocol Home Medications Medication Instructions Recorded Confirmed Last Taken Type amlodipine 10 mg tablet 1 tab PO DAILY 03/27/21 03/27/21 Unknown History aspirin 81 mg tablet 81 mg PO BEDTIME 03/27/21 03/27/21 Unknown History doxazosin 4 mg tablet 1 tab PO DAILY 03/27/21 03/27/21 Unknown History gabapentin 100 mg capsule 1 cap PO BEDTIME 03/27/21 03/27/21 Unknown History irbesartan 150 mg tablet 1 tab PO DAILY 03/27/21 03/27/21 Unknown History tadalafil 20 mg tablet 1 tab PO DAILY PRN 03/27/21 03/27/21 Unknown History Physical Exam Vital Signs: Vital Signs: Last Vital Signs Temp 98.3 F 03/28/21 08:07 Pulse 71 03/28/21 10:33 Resp 19 03/28/21 08:07 BP 171/86 H 03/28/21 10:33 Pulse Ox 97 03/28/21 09:15 Body Mass Index 52.6 Const: General: no acute distress, well developed and alert HENMT: Face and sinus: Yes normal facial exam and Yes face symmetric Mouth: Normal oral and palatal mucosa present and moist mucous membranes Throat: Yes posterior oropharynx normal and Yes tonsils normal Eyes: General: appearance normal, both eyes and all related structures Alignment and Position: alignment normal and position normal Sclerae: sclerae normal Pupils: Equal, round and reactive pupils present EOM: EOMs intact bilaterally Neck: Neck: Yes normal visual inspection, Yes full ROM and Yes no lymphadenopathy Lymphatic: no lymphadenopathy noted Chest: Chest palpation & inspection: normal inspection of the chest, no tenderness and No rash Resp: Effort & Inspection: normal respiratory effort and able to speak in complete sentences Auscultation: clear to auscultation bilaterally, no crackles, no rales, no rhonchi and no wheezes Cardio: Rate: regular rate Rhythm: regular rhythm Heart sounds: S1 normal heart sound present, S2 normal heart sound present, no murmurs and no rubs GI: Inspection: No distended Palpation (GI): Soft to palpation and nontender Percussion: No tympanic to percussion Auscultation: normal bowel sounds Skin: Rashes: no rashes Trauma: no lacerations or abrasions Wounds: no wounds Neuro: Other: He has a peripheral facial weakness on the right side with a droop of the brow weakness of the front talus and eye closure as well as the lower face. His speech is slightly thick but proportioonate to the degree of facial weakness. He is unable to hold air in the mouth and has drooling from the right angle of the mouth. There is no stylomastoid tenderness. His right eye is red because of failure to completely close it. Extraocular movements are full. Facial sensation is intact. There is no drift off the upper extremities. He's hyperreflexic throughout from his previous Guillain-Angelo? syndrome. Gait and coordination are normal Cranial nerves: Yes Equal, round and reactive pupils present and Yes Bilaterally intact EOM present Extrem: General: Yes full ROM and Yes no pedal edema Psych: Appearance: grossly normal Mental Status: mental status grossly normal Speech and movement: Normal speech and movement present Affect: normal affect Thought process: Normal thought process present Results Labs CBC & Chem 7: 03/28/21 06:13 03/28/21 06:13 Labs: Short CBC 03/27/21 03/28/21 Range/Units 18:54 06:13 WBC 6.5 5.5 (4.8-10.8) X10*3/uL Hgb 14.1 13.8 L (14.0-18.0) g/dl Hct 40.7 L 40.7 L (42-52) % Plt Count 187 188 (160-400) X10*3/uL BMP 03/27/21 03/28/21 18:54 06:13 Sodium 143 143 Potassium 4.0 3.8 Chloride 106 109 H Carbon Dioxide 24 23 BUN 17 H 19 H Creatinine 0.81 0.77 Calcium 9.5 9.3 Cardiac Enzymes 03/27/21 Range/Units 18:54 Total Creatine Kinase 264 H (38-174) U/L Urine 03/27/21 Range/Units 21:21 Urine Color YELLOW Urine Appearance CLEAR Urine pH 7.0 (5.0-8.0) Ur Specific [place] 1.010 (1.005-1.025) Urine Protein TRACE (NEG-TRACE) MG/DL Urine Glucose (UA) NEG (NEG) MG/DL Assessment and Plan (1) Stroke-like symptoms: Status: Acute I don't believe he's had an accute stroke however because of the slight speech impediment, it would be appropriate to do an outpatient MRI of the brain on a scanner that is Appropriate for his weight (2) HTN (hypertension): Status: Acute Control of blood pressure (3) JR on CPAP: Status: Acute (4) Right-sided Brown's palsy: Status: Acute Eye care with artificial tears, keeping the eye closed at night. Expect recovery, and 6-8 weeks. I don't believe that he has had a stroke Procedures Date of Service Date of Service: 03/28/21
[2021-03-28 15:23] VITALS: BP 143/73; PULSE 75; RESP 20; TEMP 36.9; O2SAT 95
--- NOTE | 2021-03-28 15:48 | PM.DS ---
DS: Providers Provider Date of Service: 03/28/21 Date of admission: 03/27/21 23:21 Primary care physician: Cortez Blunt MD Consults: 03/27/21 23:21 Consult to Neurology Routine Consulting Provider: [facility] Reason for consultation: Stroke symptoms Has provider been notified: No DS: Diagnosis Discharge Diagnosis (1) Stroke-like symptoms: Status: Acute (2) HTN (hypertension): Status: Acute (3) JR on CPAP: Status: Acute (4) Right-sided Brown's palsy: Status: Acute DS: Medications Discharge Medications Home Medications: Home Medications Medication Instructions Recorded Confirmed amlodipine 10 mg tablet 1 tab PO DAILY 03/27/21 03/27/21 aspirin 81 mg tablet 81 mg PO BEDTIME 03/27/21 03/27/21 doxazosin 4 mg tablet 1 tab PO DAILY 03/27/21 03/27/21 gabapentin 100 mg capsule 1 cap PO BEDTIME 03/27/21 03/27/21 irbesartan 150 mg tablet 1 tab PO DAILY 03/27/21 03/27/21 tadalafil 20 mg tablet 1 tab PO DAILY PRN 03/27/21 03/27/21 Previous Rx's Medication Instructions Recorded omeprazole 20 mg capsule,delayed 20 mg PO DAILY #14 cap 03/28/21 release prednisone 20 mg tablet 20 mg PO DAILY #21 tab 03/28/21 DS: Summary Hospital Course Hospital Course: History of presenting illness Date of Service: 03/27/21 Chief Complaint: Facial droop 60-year-old male with history of hypertension, obstructive sleep apnea (on CPAP), prior history of Guillain-Holden syndrome, who presented with facial droop and slurred speech.? History is from the patient, the patient's (who was at bedside), and ED notes. Patient endorses that he has been having headache for the past 4 days (above his right ear).? Today (03/27/21) at around 6:15 p.m., while he was eating supper, his noted some right sided facial droop and some slurred speech.? Patient also realized that he had some drooping of the right eyelid.? Subsequently, the patient went to the ED. Pertinent findings in the ED include:? Blood pressure was initially elevated as high as 211/87, heart rate as high as 128. Otherwise labs and imaging were unremarkable. Hospital course 60-year-old gentleman with past medical history of hypertension, hyperlipidemia presented to [facility] with right facial droop and impaired speech, CT head unremarkable, head and neck CTA showed no abnormality, an MRI was attempted but patient did not fit due to his weight. Patient has no other neurological deficit. Patient seen by neurologist they diagnosed him to have right-sided Brown's palsy, patient is being discharged home on prednisone 60 mg by mouth daily for 7 days he has been recommended to use artificial tears and tape the right eye if unable to close at nighttime ,he is also being discharged home on Prilosec for GI prophylaxis, due to slurred speech neuro recommend an MRI study as an outpatient for completion of workup. Time Spent with Patient Time attestation: Total time spent providing and/or coordinating discharge services: Discharge coordination time: Greater than 30 minutes Quality: Stroke Does the patient have a stroke diagnosis?: No Physical Exam Vital Signs: Vital Signs: Last Vital Signs Temp 98.4 F 03/28/21 15:23 Pulse 75 03/28/21 15:23 Resp 20 03/28/21 15:23 BP 143/73 H 03/28/21 15:23 Pulse Ox 95 03/28/21 15:23 Body Mass Index 52.6 General no acute distress. Neck supple no JVD. CVS regular rate rhythm, Respiratory lungs clear to auscultation, no respiratory distress, no wheeze, no rhonchi. Gastrointestinal abdomen soft, nontender, bowel sounds audible Extremities no edema. Neuro right facial droop, drooling from right angle of mouth, unable to close right eye, mild right eye hyperemia, thick speech likely due to facial weakness, normal strength both upper and lower extremity, steady gait Skin no rash DS: Data Data Completed and Pending Labs on day of discharge: Laboratory Results - last 24 hr 03/27/21 03/27/21 03/27/21 18:45 18:46 18:54 WBC 6.5 RBC 4.70 Hgb 14.1 Hct 40.7 L MCV 86.6 MCH 30.0 MCHC 34.6 RDW 13.4 Plt Count 187 MPV 10.2 Immature Gran % (Auto) 0.5 H Neut % (Auto) 78.9 H Lymph % (Auto) 11.7 L [place] % (Auto) 5.9 Eos % (Auto) 2.8 Baso % (Auto) 0.2 Lymph # (Auto) 0.8 L [place] # (Auto) 0.4 Eos # (Auto) 0.2 Baso # (Auto) 0.0 Abs Immat Gran (auto) 0.03 Absolute Neuts (auto) 5.1 Absolute Nucleated RBC 0.000 Nucleated RBC % (auto) 0.0 PT Whole Blood PT 13.9 H INR Whole Blood INR 1.2 H APTT Sodium Potassium Chloride Carbon Dioxide Anion Gap BUN Creatinine Estim Creat Clear Calc Estimated GFR POC Glucose 154 H Random Glucose Calcium Total Creatine Kinase Troponin I High Sens Triglycerides Cholesterol LDL Cholesterol, Calc HDL Cholesterol Urine Color Urine Appearance Urine pH Ur Specific [place] Urine Protein Urine Glucose (UA) Urine Ketones Urine Blood Urine Nitrite Ur Leukocyte Esterase Coronavirus (PCR) Influenza Type A (PCR) Influenza Type B (PCR) RSV RNA Qual (PCR) 03/27/21 03/27/21 03/27/21 18:54 18:54 18:54 WBC RBC Hgb Hct MCV MCH MCHC RDW Plt Count MPV Immature Gran % (Auto) Neut % (Auto) Lymph % (Auto) [place] % (Auto) Eos % (Auto) Baso % (Auto) Lymph # (Auto) [place] # (Auto) Eos # (Auto) Baso # (Auto) Abs Immat Gran (auto) Absolute Neuts (auto) Absolute Nucleated RBC Nucleated RBC % (auto) PT 11.8 Whole Blood PT INR 1.0 Whole Blood INR APTT 34.9 Sodium 143 Potassium 4.0 Chloride 106 Carbon Dioxide 24 Anion Gap 17 BUN 17 H Creatinine 0.81 Estim Creat Clear Calc 151.5 Estimated GFR > 60 POC Glucose Random Glucose 139 H Calcium 9.5 Total Creatine Kinase 264 H Troponin I High Sens 7.2 Triglycerides Cholesterol LDL Cholesterol, Calc HDL Cholesterol Urine Color Urine Appearance Urine pH Ur Specific [place] Urine Protein Urine Glucose (UA) Urine Ketones Urine Blood Urine Nitrite Ur Leukocyte Esterase Coronavirus (PCR) Influenza Type A (PCR) Influenza Type B (PCR) RSV RNA Qual (PCR) 03/27/21 03/27/21 03/27/21 19:29 21:21 22:12 WBC RBC Hgb Hct MCV MCH MCHC RDW Plt Count MPV Immature Gran % (Auto) Neut % (Auto) Lymph % (Auto) [place] % (Auto) Eos % (Auto) Baso % (Auto) Lymph # (Auto) [place] # (Auto) Eos # (Auto) Baso # (Auto) Abs Immat Gran (auto) Absolute Neuts (auto) Absolute Nucleated RBC Nucleated RBC % (auto) PT Whole Blood PT INR Whole Blood INR APTT Sodium Potassium Chloride Carbon Dioxide Anion Gap BUN Creatinine Estim Creat Clear Calc Estimated GFR POC Glucose 116 H Random Glucose Calcium Total Creatine Kinase Troponin I High Sens Triglycerides Cholesterol LDL Cholesterol, Calc HDL Cholesterol Urine Color YELLOW Urine Appearance CLEAR Urine pH 7.0 Ur Specific [place] 1.010 Urine Protein TRACE Urine Glucose (UA) NEG Urine Ketones NEG Urine Blood NEG Urine Nitrite NEG Ur Leukocyte Esterase NEG Coronavirus (PCR) NEGATIVE Influenza Type A (PCR) NEGATIVE Influenza Type B (PCR) NEGATIVE RSV RNA Qual (PCR) NEGATIVE 03/28/21 03/28/21 03/28/21 06:13 06:13 08:10 WBC 5.5 RBC 4.66 Hgb 13.8 L Hct 40.7 L MCV 87.3 MCH 29.6 MCHC 33.9 RDW 13.5 Plt Count 188 MPV 10.0 Immature Gran % (Auto) 0.4 Neut % (Auto) 75.5 H Lymph % (Auto) 12.2 L [place] % (Auto) 8.8 Eos % (Auto) 2.6 Baso % (Auto) 0.5 Lymph # (Auto) 0.7 L [place] # (Auto) 0.5 Eos # (Auto) 0.1 Baso # (Auto) 0.0 Abs Immat Gran (auto) 0.02 Absolute Neuts (auto) 4.1 Absolute Nucleated RBC 0.000 Nucleated RBC % (auto) 0.0 PT Whole Blood PT INR Whole Blood INR APTT Sodium 143 Potassium 3.8 Chloride 109 H Carbon Dioxide 23 Anion Gap 15 BUN 19 H Creatinine 0.77 Estim Creat Clear Calc 159.1 Estimated GFR > 60 POC Glucose 115 Random Glucose 121 H Calcium 9.3 Total Creatine Kinase Troponin I High Sens Triglycerides 144 Cholesterol 163 LDL Cholesterol, Calc 96 HDL Cholesterol 39 Urine Color Urine Appearance Urine pH Ur Specific [place] Urine Protein Urine Glucose (UA) Urine Ketones Urine Blood Urine Nitrite Ur Leukocyte Esterase Coronavirus (PCR) Influenza Type A (PCR) Influenza Type B (PCR) RSV RNA Qual (PCR) Discharge Plan Discharge Patient Disposition: Home, Self-Care Discharge Diagnosis: Right sided Brown's palsy Speech impairment Referrals: Cortez Blunt MD [Primary Care Provider] - 1 Week Discharge Medications: New prednisone 20 mg tablet 20 mg PO DAILY Qty: 21 RF: 0 omeprazole 20 mg capsule,delayed release(DR/EC) 20 mg PO DAILY Qty: 14 RF: 0 Continued amlodipine 10 mg tablet 1 tab PO DAILY RF: 0 doxazosin 4 mg tablet 1 tab PO DAILY RF: 0 aspirin 81 mg Tablet 81 mg PO BEDTIME RF: 0 gabapentin 100 mg capsule 1 cap PO BEDTIME RF: 0 irbesartan 150 mg tablet 1 tab PO DAILY RF: 0 tadalafil 20 mg tablet 1 tab PO DAILY PRN (Reason: intercourse) RF: 0 Discharge Orders: Discharge Order (Routine); Ordered 03/28/21 Ordered By: Sd Munoz Diet: low fat, low cholesterol Activity on Discharge: As tolerated Stand Alone Forms: Patient Portal Discharge page Care Plan Goals: Right facial Brown's palsy, use artificial tears every 4 hours as needed to avoid dry eyes, tape eye at night if unable to close, take prednisone 60 mg daily for 7 days, take Prilosec 1 tablet daily to prevent acidity Symptoms will improve in next 6-8 weeks, obtain MRI study in next 2-4 weeks, due to concern for slurred speech, no evidence of acute stroke at present. Health Concerns: Continue all home medications as before Plan of Treatment: Outpatient follow-up with primary care physician next 7-10 days Assessment: As above
== END 2021-03-28 16:22 | disposition home or self-care (01) | DRG 48 ==
LOC: HO.ED 22:34 → HO.EDOVER 23:43 → HO.S3 03-28 06:44
PROVIDERS: Admitting Provider Internal Medicine; Emergency Provider Emergency Medicine; PCP Family Medicine; Visit Provider Hospitalist
DX: G51.0 Bell's palsy (principal); E78.5 Hyperlipidemia, unspecified; G47.33 Obstructive sleep apnea (adult) (pediatric); I10 Essential (primary) hypertension; Z99.89 Dependence on other enabling machines and devices; Z20.822 Contact with and (suspected) exposure to COVID-19; Z79.82 Long term (current) use of aspirin; Z79.899 Other long term (current) drug therapy
CPT/HCPCS: 0241U; 36415; 70450; 70496; 70498; 71045; 80048; 80061; 81003; 82550; 82947; 84484; 85025; 85610; 85730; 93005; 93306; 97161; 97165; 99223; 99285; Q9957

== ENCOUNTER 2022-05-02 09:56 | Emergency (ER) | payer OTHER, SELFPAY ==
--- NOTE | ~2022-05-02 | XR_ITS ---
EXAMINATION: LEFT ANKLE SERIES. LEFT FOOT SERIES. CLINICAL INFORMATION: Fall pain COMPARISON: None TECHNIQUE: 3 views of the left foot. 2 additional views of the left ankle FINDINGS: Left foot: Plantar calcaneal spur. Bones joints and soft tissues otherwise normal. Left ankle: There is generalized soft tissue prominence likely reflecting swelling or edema. Bones and joints otherwise normal. XR/XR ankle LT min 3V IMPRESSION: No fracture or definite acute abnormality. Possible soft tissue swelling. Calcaneal spur
--- NOTE | ~2022-05-02 | CT_ITS ---
EXAMINATION: CT HIP and left lower leg WITHOUT CONTRAST, LEFT CLINICAL INFORMATION: Fall. Unable to ambulate COMPARISON: Left hip and knee, ankle and foot x-ray from earlier the same day TECHNIQUE: Axial images through the left hip and left lower leg without contrast. Sagittal and coronal reconstructions on the technologist workstation were performed. This CT examination was performed using dose optimization techniques as appropriate, variously including the following: *Automated exposure control *Adjustment of mA and/or kV according to patient size (this includes techniques or standardized protocols for targeted exams where dose is matched to indication/reason for exam; i.e. extremities or head) *Use of iterative reconstruction technique DLP: 775 mGy-cm FINDINGS: Left hip: Bone alignment is normal. No fracture or dislocation is seen. The left hip joint space is normal. Soft tissues are normal. Left lower leg: Bone alignment is normal. No fracture or dislocation is seen. There is a bipartite patella. There is mild arthritis at the medial femoral tibial and patellofemoral joints. There is a small joint effusion. The ankle joint is normal. There is slight soft tissue calcification or ossification in the interosseous membrane likely related to old trauma. There is subcutaneous edema of the lateral and posterior distal lower leg just above the ankle.. CT/CT lower leg LT wo IV con IMPRESSION: Left hip: Unremarkable exam. No fracture or dislocation. Left lower leg: No fracture or dislocation. Bipartite patella, mild left knee arthritis and small joint effusion. Mild soft tissue swelling or edema of the posterior and lateral distal lower leg.
--- NOTE | ~2022-05-02 | CT_ITS ---
EXAMINATION: CT HIP and left lower leg WITHOUT CONTRAST, LEFT CLINICAL INFORMATION: Fall. Unable to ambulate COMPARISON: Left hip and knee, ankle and foot x-ray from earlier the same day TECHNIQUE: Axial images through the left hip and left lower leg without contrast. Sagittal and coronal reconstructions on the technologist workstation were performed. This CT examination was performed using dose optimization techniques as appropriate, variously including the following: *Automated exposure control *Adjustment of mA and/or kV according to patient size (this includes techniques or standardized protocols for targeted exams where dose is matched to indication/reason for exam; i.e. extremities or head) *Use of iterative reconstruction technique DLP: 775 mGy-cm FINDINGS: Left hip: Bone alignment is normal. No fracture or dislocation is seen. The left hip joint space is normal. Soft tissues are normal. Left lower leg: Bone alignment is normal. No fracture or dislocation is seen. There is a bipartite patella. There is mild arthritis at the medial femoral tibial and patellofemoral joints. There is a small joint effusion. The ankle joint is normal. There is slight soft tissue calcification or ossification in the interosseous membrane likely related to old trauma. There is subcutaneous edema of the lateral and posterior distal lower leg just above the ankle.. CT/CT hip LT wo IV con IMPRESSION: Left hip: Unremarkable exam. No fracture or dislocation. Left lower leg: No fracture or dislocation. Bipartite patella, mild left knee arthritis and small joint effusion. Mild soft tissue swelling or edema of the posterior and lateral distal lower leg.
--- NOTE | ~2022-05-02 | XR_ITS ---
EXAMINATION: LEFT ANKLE SERIES. LEFT FOOT SERIES. CLINICAL INFORMATION: Fall pain COMPARISON: None TECHNIQUE: 3 views of the left foot. 2 additional views of the left ankle FINDINGS: Left foot: Plantar calcaneal spur. Bones joints and soft tissues otherwise normal. Left ankle: There is generalized soft tissue prominence likely reflecting swelling or edema. Bones and joints otherwise normal. XR/XR foot LT min 3V IMPRESSION: No fracture or definite acute abnormality. Possible soft tissue swelling. Calcaneal spur
--- NOTE | ~2022-05-02 | XR_ITS ---
EXAMINATION: XR knee LT 4V CLINICAL INFORMATION: Reason for Exam pain s/p fall COMPARISON: None available at the time of this dictation. TECHNIQUE: frontal, lateral, tunnel and patella sunrise views FINDINGS: BONES: No fracture or dislocation is present. Radiolucent line through the patella upper lateral could be unfused secondary ossification center versus an old unhealed fracture. JOINTS: Narrowing of joint spaces and developed osteophytes from the edges of articular surfaces suggest degenerative osteoarthritis. There is knee joint effusion. SOFT TISSUE: Normal XR/XR knee LT 4V IMPRESSION: Early advanced tricompartment degenerative osteoarthritis. Old fracture versus unfused secondary ossification center of the patella. Knee joint effusion.
--- NOTE | ~2022-05-02 | XR_ITS ---
EXAMINATION: XR HIP, LEFT. Pelvis CLINICAL INFORMATION: Fall COMPARISON: None TECHNIQUE: Two views of the left hip. AP pelvis FINDINGS: Left hip: The hip joint and surrounding bone normal. There is an oval-shaped calcific or ossific-like density noted in the soft tissues posterior to the proximal diaphysis of the femur There is also a rectangular slightly of opaque density adjacent to this of uncertain etiology and significance. This may be outside the patient. Pelvis: The bones joints and soft tissues are normal. No fracture. XR/XR hip LT w PEL1V IMPRESSION: No acute abnormality of the pelvis or hips. No arthritis. Incidental note made of a calcific or ossific-like density in the soft tissues of the proximal thigh of uncertain etiology and significance. This could reflect heterotopic ossification related to prior trauma Second rectangular object adjacent to the aforementioned area of density of uncertain etiology possibly outside the patient.
[2022-05-02 10:11] VITALS: BP 143/77; PULSE 68; RESP 17; TEMP 37.1; O2SAT 98; BMI 43.7
[2022-05-02] MEDS: oxyCODONE HCl Immed Release 5 MG TABLET 10 MG PO (10:47)
--- NOTE | 2022-05-02 11:32 | ED_ITS ---
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 Patient reports walking down stairs in his home this morning, thinking he was on the bottom step when he was actually on the 2nd to last step. He stepped down with all of his weight, jammed his left leg and fell onto his left side. He denies hitting his head or losing consciousness. He was able to get up after a few moments. 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 After moving around for a few hours his pain started to worsen. He reports pain increased to the point where he had a very hard time walking. The pain is in his left hip, knee, and ankle. MD complaint: hip injury, knee injury, ankle injury and foot injury Onset (ago): hour(s) Injury: Left: hip, knee, ankle and foot Type of Injury: blunt Place: home Severity: severe Relieving factors: immobilization and rest Exacerbating factors: weight bearing, movement and palpation Context: fall Associated symptoms: able to partially bear weight Other symptoms: none Related Data Home Medications Medication Instructions Recorded Confirmed amlodipine 10 mg tablet 1 tab PO DAILY 03/27/21 03/27/21 aspirin 81 mg tablet 81 mg PO BEDTIME 03/27/21 03/27/21 doxazosin 4 mg tablet 1 tab PO DAILY 03/27/21 03/27/21 gabapentin 100 mg capsule 1 cap PO BEDTIME 03/27/21 03/27/21 irbesartan 150 mg tablet 1 tab PO DAILY 03/27/21 03/27/21 tadalafil 20 mg tablet 1 tab PO DAILY PRN intercourse 03/27/21 03/27/21 Previous Rx's Medication Instructions Recorded omeprazole 20 mg capsule,delayed 20 mg PO DAILY #14 caps 03/28/21 release prednisone 20 mg tablet 20 mg PO DAILY #21 tabs 03/28/21 ibuprofen 800 mg tablet 800 mg PO Q8H PRN pain #14 tabs 05/02/22 oxycodone 10 mg tablet 10 mg PO Q8H PRN severe pain 05/02/22 (scale score 7-10) #10 tabs Allergies Allergy/AdvReac Type Severity Reaction Status Date / Time Penicillins Allergy Unknown HIVES Verified 03/27/21 19:44 Review of Systems Review of Systems: Constitutional: No Fever, No Chills Cardiovascular: No Chest Pain, No SOB, No Orthopnea, No Edema Respiratory: No Cough, No Sputum, No Wheezing, No dyspnea Gastrointestinal: No Nausea, No Vomiting, No Diarrhea, No abdominal Pain Genitourinary: No Hematuria Musculoskeletal: + joint pain, No Myalgias Skin: No Skin Lesions, No rash Neuro: No Weakness, No Numbness, No Dizziness, No Headache Psych: No Anxiety/Panic, No Depression Heme/Lymph: No Bruising, No Lymphadenopathy Endocrine: No Polyuria, No Polydipsia [facility] Past Medical History Medical History (Updated 05/02/22 @ 16:10 by SUSHMA Romero) 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 HTN (hypertension) JR on CPAP Social History Social History Household Members: Spouse Housing: House Do you presently have visiting nurse or other home services: No Alcohol intake: never Patient Tobacco Use Status: Never used Tobacco Advance Directives: No Advance Directives Information Provided: No service: No Current occupational status: employed Physical Exam Vital Signs: Vital Signs: Last Vital Signs Temp 98.7 F 05/02/22 10:11 Pulse 68 05/02/22 10:11 Resp 17 05/02/22 10:11 BP 143/77 H 05/02/22 10:11 Pulse Ox 98 05/02/22 10:11 O2 Del Method 05/02/22 10:11 BMI result Body Mass Index 43.7 Appearance: Alert. Oriented X3. Appears uncomfortable, grimacing. HEENT: normal inspection CVS: Normal heart rate and rhythm. Pulses normal. Respiratory: No respiratory distress. Skin: Skin warm and dry. Normal skin color. Normal skin turgor. No rashes. Extremities: left lower extremity externally rotated but not shortened. moderate tenderness of the lateral hip. able to flex the hip and knee and 45 degrees. nontender thigh. unable assess joint laxity, patella without tenderness. chronic ecchymotic area on anterior left [place]. nontender. left lateral ankle with mild swelling and tenderness to the lateral malleolus. pain with ROM of the ankle. NV intact distally. Neuro: Oriented X 3. No motor deficit. No sensory deficit. Gait not tested due to pain. Course Course Course Narrative: 61-year-old male with history of Guillain-[place] with residual left lower extremity weakness, morbid obesity who presents to the ER for evaluation of left lower extremity pain after a fall this morning. Immediately after the fall he was able to get up and he was moving around ?okay. ? Pain acutely worsened after activity, prompting him to come to the ER for evaluation. He is requiring a wheelchair into the treatment room. He has tenderness of the left hip, left knee and ankle. There is swelling of the left lateral ankle. Gait not tested due to pain. Physical exam limited due to pain. Will start with x-rays. Will medicate and reassess. Reevaluation(s) Reevaluation #1: X-rays are unremarkable for any acute fractures. Patient attempted to stand and ambulate but the pain was too severe. Given concern for possible occult fracture, will get CT scan of his hip and lower extremity. Additional pain co ntrol has been ordered. Reevaluation #2: CT scan of the hip and lower extremity did not show any occult fractures. His pain is improved with medications. Patient was sat at the edge of the bed, then stood and ambulated with assist of 1. He was stable on his feet but limping on the left leg. He has reported the pain was worse on his left knee and left ankle. He was provided with crutches and was using them appropriately and was steady on his feet. Possible knee sprain and ankle sprain. Will wrap and Sulaiman wrap, refer to orthopedics and discharge with pain control. Patient's at the bedside to pick him up. Comfortable with DC home. Discharge Plan Discharge Clinical Impression: Knee sprain, Ankle sprain Patient Disposition: Home, Self-Care Instructions: Ankle Sprain (ED), Knee Sprain (ED) Additional Instructions: Your CT scans showed Left hip: Unremarkable exam. No fracture or dislocation. ? Left lower leg: No fracture or dislocation. Bipartite patella, mild left knee arthritis and small joint effusion. Mild soft tissue swelling or edema of the posterior and lateral distal lower leg. Your x-ray today was normal. Rest you leg and elevate it when possible. Recommend SULAIMAN wrap for support and compression. Use ice several times per day for the next 48 hours. You may bear weight as tolerated. If pain is too severe, use crutches until better. Take Motrin and/or Tylenol as needed for pain. Follow up with your doctor as needed. Recommend also following up with orthopedics for further evaluation and treatment of pain persist. Name and number below. Prescriptions: New oxycodone 10 mg tablet 10 mg PO Q8H PRN (Reason: severe pain (scale score 7-10)) Qty: 10 0RF Rx Instructions: Partial Fill upon patient request. ibuprofen 800 mg tablet 800 mg PO Q8H PRN (Reason: pain) Qty: 14 0RF No Action amlodipine 10 mg tablet 1 tab PO DAILY doxazosin 4 mg tablet 1 tab PO DAILY aspirin 81 mg Tablet 81 mg PO BEDTIME gabapentin 100 mg capsule 1 cap PO BEDTIME irbesartan 150 mg tablet 1 tab PO DAILY tadalafil 20 mg tablet 1 tab PO DAILY PRN (Reason: intercourse) prednisone 20 mg tablet 20 mg PO DAILY Qty: 21 0RF Rx Instructions: Take 3 tablets of prednisone 20 mg (60mg)daily for 7 days with food omeprazole 20 mg capsule,delayed release(DR/EC) 20 mg PO DAILY Qty: 14 0RF Referrals: [facility] [Provider Group]
--- NOTE | 2022-05-02 12:08 | PC.NURSE ---
attempted to ambulate patient after pt report that pain is now 3/10. Pt has great difficulty standing and was unable to ambulate. Provider notified
[2022-05-02] MEDS: Acetaminophen 325 MG TABLET 975 MG PO (14:50)
[2022-05-02] MEDS: oxyCODONE HCl Immed Release 5 MG TABLET PO (14:50)
[2022-05-02] MEDS: Ibuprofen 600 MG TABLET PO (14:50)
== END 2022-05-02 17:59 | disposition home or self-care (01) ==
PROVIDERS: Emergency Provider Emergency Medicine; PCP Family Medicine
DX: S83.92XA Sprain of unspecified site of left knee, initial encounter (principal); S93.402A Sprain of unspecified ligament of left ankle, initial encounter; W10.8XXA Fall (on) (from) other stairs and steps, initial encounter; M25.552 Pain in left hip; G61.0 Guillain-Barre syndrome; I10 Essential (primary) hypertension; E66.01 Morbid (severe) obesity due to excess calories; Z68.41 Body mass index [BMI] 40.0-44.9, adult; Y93.89 Activity, other specified; Y92.018 Other place in single-family (private) house as the place of occurrence of the external cause; Y99.9 Unspecified external cause status
CPT/HCPCS: 73502; 73564; 73610; 73630; 73700; 99283; 99284

== ENCOUNTER 2024-05-03 20:53 | Emergency (ER) | payer OTHER, SELFPAY ==
[2024-05-03 20:56] VITALS: BP 175/88; PULSE 75; RESP 16; TEMP 37.5; O2SAT 100; BMI 51.6
--- NOTE | 2024-05-03 21:00 | ECG_ITS ---
Test Reason : jaw/ear pain Blood Pressure : / mmHG Vent. Rate : 074 BPM Atrial Rate : 074 BPM P-R Int : 134 ms QRS Dur : 092 ms QT Int : 368 ms P-R-T Axes : 020 003 016 degrees QTc Int : 408 ms Normal sinus rhythm Normal ECG When compared with ECG of 27-MAR-2021 19:29, No significant change was found Referred By: Cristina Kirkland Electronically Signed By:ANIKET CARIAS
[2024-05-03 21:51] VITALS: BP 146/76; PULSE 73; RESP 16; TEMP 37.3; O2SAT 97
[2024-05-03] MEDS: methocarbamoL 750 MG TABLET 1500 MG PO (21:56)
[2024-05-03] MEDS: Diphth,Pertus(ACell),Tet Adult 0.5 ML SYRINGE IM (21:56)
--- NOTE | 2024-05-03 21:59 | MHC.EDTECH ---
Patient was biba ,ekg taken and was read by Provider ,blood drawn and sent to lab ,Patient was hooked up to manager cardiac ,vitals taken .Patient at bedside .
[2024-05-03 22:00] LABS: MANUAL DIFF FLAG NO
--- NOTE | 2024-05-03 22:00 | PC.NURSE ---
Medicated per MAR.
[2024-05-03 22:01] LABS: Basophils Percent Auto 0.3 % (0-2); Eosinophils Absolute Auto 0.2 X10*3/uL (0.0-0.4); Eosinophils Percent Auto 2.2 % (0-4); Hematocrit 36.1 % (42.0-52.0); Imm Gran Abs Auto 0.02 X10*3/uL (0.00-0.03); Imm Gran Pct Auto 0.2 % (0.0-0.4); Lymphocytes Absolute Auto 0.6 X10*3/uL (1.2-4.9); Mean Corpuscular Hemoglobin 31.6 pg (27.0-33.0); Mean Corpuscular Volume 87.6 fL (80.0-98.0); Mean Platelet Volume 9.7 fL (9.4-12.4); Monocytes Absolute Auto 0.8 X10*3/uL (0.1-1.2); Monocytes Percent Auto 8.5 % (2-11); Neutrophils Absolute Auto 7.4 x10*3/uL (2.0-8.3); Neutrophils Percent Auto 81.8 % (45-73); Platelet Count 163 X10*3/uL (160-400); Red Blood Count 4.12 X10*6/uL (4.60-5.80); Red Cell Distribution Width 13.2 % (11.0-16.0)
--- OUTSIDE RECORDS SUMMARY | 2024-05-03 22:11 | XMS_ITS | Continuity of Care Document ---
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 Name Role Phone Merlene BYRNE, Cortez Kendall Primary Care Physician Encounter [facility] Date(s): 05/21/23 - 06/20/23 [facility] [place] [address] [place] [address]- Allergies, Adverse Reactions, Alerts Substance Reaction Severity Status lisinopril cough Active penicillins Rash Active Immunizations Given and Recorded Vaccine Date Status Refusal Reason tetanus/diphtheria/pertussis, acel(Tdap) 1 12/20/17 Given 1Result Comment: [12/20/2017] [facility] [id number] Medications Acetaminophen Daily, 0 Refills, Maintenance, 09/10/22 8:02:00 EST, Partial fill upon patient request if the prescription is for a schedule II opioid drug. Start Date: 09/10/22 Status: Ordered aspirin 81 mg oral tablet 1 tablet = 81 mg, By Mouth, Daily, # 30 tablet, 0 Refills, Maintenance, 03/11/17 15:49:45, Tablet Start Date: 03/11/17 Status: Ordered doxazosin 4 mg oral tablet 1 tablet, By Mouth, Daily, # 90 tablet, 1 Refills, Maintenance, 12/17/22 11:10:00 EDT, [id number], 176.1, cm, 10/21/22 11:09:00 EDT, Height, 146.1, kg, 08/29/22 15:57:00 EST, Dry Weight Start Date: 12/17/22 Status: Ordered Eliquis 5 mg oral tablet 1 tablet = 5 mg, By Mouth, 2 times a day, # 60 tablet, 5 Refills, Maintenance, 07/01/22 9:02:00 EST, Tablet, [facility]/pharmacy #[id number], Partial fill upon patient request if the prescription is for a schedule II opioid drug., 178, cm, 07/01/22 7:55:00 EST, He... Start Date: 07/01/22 Status: Ordered gabapentin 100 mg oral capsule 2, capsule, By Mouth, Daily at bedtime, # 180 capsule, Refills 1, Tot. Refills 1, Maintenance, 05/10/23 13:26:00 EDT, Route to Pharmacy Electronically, [facility]/pharmacy #[id number], 176.1, cm, 05/10/23 13:05:00 EDT, Height, 146.1, kg, 08/29/22 15:57:00 EST, Dry... Start Date: 05/10/23 Status: Ordered LORazepam 2 mg oral tablet 1 tablet = 2 mg, By Mouth, Once, one hour prior to procedure, # 1 tablet, 0 Refills, Soft Stop, 06/10/23 5:16:00 EDT, Tablet, [facility]/pharmacy #[id number], Partial fill upon patient request if the prescriptionis for a schedule II opioid drug., 176.1, cm, 05/13... Start Date: 06/10/23 Status: Ordered Metoprolol Succinate ER 100 mg oral tablet, extended release See Instructions, TAKE 1 TABLET BY MOUTH EVERY DAY, # 90 tablet, 1 Refills, Maintenance, 11/09/22 9:12:00 EDT, [facility]/pharmacy #[id number], 176.1, cm, 10/21/22 11:09:00 EDT, Height, 146.1, kg, 08/29/22 15:57:00 EST, Dry Weight Start Date: 11/09/22 Status: Ordered omeprazole 20 mg oral enteric coated capsule 1 capsule = 20 mg, By Mouth, Daily, (buys OTC), Maintenance, 06/22/22 16:42:00 EST, EC Capsule, ; Start Date: 06/22/22 Status: Ordered spironolactone 25 mg oral tablet 1, tablet, By Mouth, Daily, # 90 tablet, Refills 1, Maintenance, 06/14/23 8:05:00 EST, Route to Pharmacy Electronically, [id number], 176.1, cm, 05/13/23 9:04:00 EDT, Height, 146.1, kg, 08/29/22 15:57:00 EST, Dry Weight Start Date: 06/14/23 Status: Ordered Tadalafil (Eqv-Cialis) 20 mg oral tablet 1 tablet, By Mouth, Daily, PRN NEEDED FOR ERECTILE DYSFUNCTION, # 5 tablet, 2 Refills, Maintenance, 06/13/23 18:58:00 EST, [id number], 176.1, cm, 05/13/23 9:04:00 EDT, Height, 146.1, kg, 08/29/22 15:57:00 EST, Dry Weight Start Date: 06/13/23 Status: Ordered TADALAFIL 20 MG TABLET TADALAFIL 20 MG TABLET, 1, tablet, By Mouth, Daily, PRN, # 5 tablet, 1 Refills, Maintenance, 11/09/22 10:08:00 EDT, 176.1, cm, 10/21/22 11:09:00 EDT, Height, 146.1, kg, 08/29/22 15:57:00 EST, Dry Weight Start Date: 11/09/22 Status: Ordered torsemide 20 mg oral tablet 1 tablet = 20 mg, By Mouth, 2 times a day, # 180 tablet, 3 Refills, Maintenance, 12/17/22 6:36:00 EDT, Tablet, [facility]/pharmacy #[id number], Partial fill upon patient request if the prescription is for a schedule II opioid drug., 176.1, cm, 10/21/22 11:09:00 ED... Start Date: 12/17/22 Stop Date: 12/12/23 Status: Ordered valsartan 160 mg oral tablet 160 mg, 1, tablet, By Mouth, 2 times a day, # 180 tablet, Refills 4, Tot. Refills 4, Maintenance, 10/19/22 13:24:00 EDT, Route to Pharmacy Electronically, [facility]/pharmacy #[id number], Partial fill upon patient request if the prescription is for a schedule II o... Start Date: 10/19/22 Stop Date: 01/12/24 Status: Ordered Problem List Condition Confirmation Course Effective Dates Status H ealth Status Informant Atrial flutter Confirmed Active Benign essential hypertension Confirmed Active Sleep related hypoventilation/hypox emia in other disease Confirmed Active Nonischemic cardiomyopathy Confirmed Active Diverticulosis 1 Confirmed Active Heart failure with preserved ejection fraction Confirmed Active Hemorrhoids Confirmed Active Hypertension Confirmed Active Bilateral knee pain Confirmed Active Migraine Confirmed Active Obesity Confirmed Active JR (obstructive sleep apnea) Confirmed Active Paresthesia of left lower extremity Confirmed Active Severe obesity Confirmed Active 1PER 03/02/14 COLONOSCOPY-DR ANABELLA CONCEPCION Social History Social History Type Response Smoking Status Never smoker entered on: 03/11/17 Sex Patient Care team information Care Team Personnel Name: Alanis Harris Position: [facility] RN Supv Member Role: Primary Care Nurse Name: Brittani Anguiano RN Position: [facility] SN RN Member Role: Primary Care Nurse Name: Cortez Blunt MD Position: [facility] Physician - Primary Care Member Role: PCP Address: Address: [address] [place] [id number]- Name: Ron Babb RN Position: [facility] RN Member Role: Primary Care Nurse Care Team Related Persons Name: CECY NGUYEN Address: home [address] [place] [address] Name: LEIDY NGUYEN JR Address: home [address] [place] [address]
--- OUTSIDE RECORDS SUMMARY | 2024-05-03 22:11 | XMS_ITS | Continuity of Care Document ---
Author Organization [facility] Darrell Address [address] [place] [address]- Care Team Providers Care Head Concierge Name Role Phone Merlene BYRNE, Cortez Kendall Primary Care Physician [phone] Encounter [facility] R [id number] Date(s): 11/05/23 - 12/05/23 [facility] Adult [address] [place] [address]- Allergies, Adverse Reactions, Alerts Substance Reaction Severity Status lisinopril cough Active penicillins Rash Active Immunizations Given and Recorded Vaccine Date Status Refusal Reason tetanus/diphtheria/pertussis, acel(Tdap) 1 12/20/17 Given 1Result Comment: [12/20/2017] [facility] 35386-156-03 Medications aspirin 81 mg oral tablet 1 tablet = 81 mg, By Mouth, Daily, # 30 tablet, 0 Refills, Maintenance, 03/11/17 15:49:45, Tablet Start Date: 03/11/17 Status: Ordered doxazosin 4 mg oral tablet 1 tablet, By Mouth, Daily, # 90 tablet, 3 Refills, Maintenance, 07/13/23 5:16:00 EST, [facility] 488[facility], 176.1, cm, 06/25/23 8:54:00 EST, Height, 146.1, kg, 08/29/22 15:57:00 EST, Dry Weight Start Date: 07/13/23 Status: Ordered Eliquis 5 mg oral tablet 1 tablet, By Mouth, 2 times a day, *STOP ASPIRIN*., # 60 tablet, 11 Refills, Maintenance, 07/13/23 5:16:00 EST, [facility] 35[facility], 176.1, cm, 06/25/23 8:54:00 EST, Height, 146.1, kg, 08/29/22 15:57:00 EST, Dry Weight Start Date: 07/13/23 Status: Ordered gabapentin 100 mg oral capsule 2, capsule, By Mouth, Daily at bedtime, # 180 capsule, Refills 1, Maintenance, 10/05/23 12:18:00 EST, Route to Pharmacy Electronically, [facility]1306, 176.1, cm, 09/20/23 14:12:00 EST, Height, 146.1, kg, 08/29/22 15:57:00 EST, Dry Weight Start Date: 10/05/23 Status: Ordered Keppra 750 mg oral tablet 1 tablet = 750 mg, By Mouth, 2 times a day, # 60 tablet, 0 Refills, Maintenance, 12/01/23 11:42:00 EDT, Tablet, [facility]/pharmacy #[id number], Partial fill upon patient request if the prescription is for a schedule II opioid drug., 178, cm, 12/01/23 10:48:00 EDT... Start Date: 12/01/23 Stop Date: 12/31/23 Status: Ordered Metoprolol Succinate ER 100 mg oral tablet, extended release 1 tablet, By Mouth, Daily, # 90 tablet, 3 Refills, Maintenance, 07/09/23 13:03:00 EST, [facility] 70777, 176.1, cm, 06/25/23 8:54:00 EST, Height, 146.1, kg, 08/29/22 15:57:00 EST, Dry Weight Start Date: 07/09/23 Status: Ordered omeprazole 20 mg oral enteric coated capsule 1 capsule = 20 mg, By Mouth, Daily, (buys OTC), Maintenance, 06/22/22 16:42:00 EST, EC Capsule, ; Start Date: 06/22/22 Status: Ordered spironolactone 25 mg oral tablet 1, tablet, By Mouth, Daily, # 90 tablet, Refills 1, Maintenance, 10/01/23 13:00:00 EST, Route to Pharmacy Electronically, [facility] 98353, 176.1, cm, 09/20/23 14:12:00 EST, Height, 146.1, kg, 08/29/22 15:57:00 EST, Dry Weight Start Date: 10/01/23 Status: Ordered Tadalafil (Eqv-Cialis) 20 mg oral tablet 1 tablet, By Mouth, Daily, PRN NEEDED FOR ERECTILE DYSFUNCTION, # 5 tablet, 2 Refills, Maintenance, 06/13/23 18:58:00 EST, [facility], 176.1, cm, 05/13/23 9:04:00 EDT, Height, 146.1, [...] Ordered torsemide 20 mg oral tablet 1 tablet, By Mouth, 2 times a day, # 180 tablet, 3 Refills, Maintenance, 11/04/23 7:29:00 EDT, [facility], 176, cm, 10/25/23 12:56:00 EDT, Height, 146.1, kg, 08/29/22 15:57:00 EST, Dry Weight Start Date: 11/04/23 Status: Ordered valsartan 160 mg oral tablet 160 mg, 1, tablet, By Mouth, 2 times a day, # 180 tablet, Refills 4, Tot. Refills 4, Maintenance, 07/09/23 13:10:00 EST, Route to Pharmacy Electronically, [facility]/pharmacy #[id number], Partial fill upon patient request if the prescription is for a schedule II o... Start Date: 07/09/23 Stop Date: 10/01/24 Status: Ordered Problem List Condition Confirmation Course [...] Care Team Personnel Name: Alanis Harris Position: [facility] RN Supv Member Role: Primary Care Nurse Name: Brittani Anguiano RN Position: [facility] SN RN Member Role: Primary Care Nurse Name: Sherrell Yan RN Position: [facility] RN Member Role: Primary Care Nurse Name: Cortez Blunt MD Position: [facility] Physician - Primary Care Member Role: PCP Address: Address: [address] [place] [address]- Name: Godwin Perkins RN Position: [facility] RN Member Role: Primary Care Nurse Name: Ron Babb RN Position: [facility] RN Member Role: Primary Care Nurse Care Team Related Persons Name: CECY NGUYEN Address: home [address] [place] [address] Name: LEIDY NGUYEN JR Address: home [address] [place] [address]
--- OUTSIDE RECORDS SUMMARY | 2024-05-03 22:11 | XMS_ITS | Continuity of Care Document ---
Author Organization [facility] Darrell Address [address] [place] [address]- Care Team Providers Care Respite Care Provider Name Role Phone Merlene BYRNE, Cortez Kendall Primary Care Physician [phone] Encounter [facility] Date(s): 11/30/23 - 12/30/23 [facility] Adult [address] [place] [address]- Allergies, Adverse Reactions, Alerts Substance Reaction Severity Status lisinopril cough Active penicillins Rash Active Immunizations Given and Recorded Vaccine Date Status Refusal Reason tetanus/diphtheria/pertussis, acel(Tdap) 1 12/20/17 Given 1Result Comment: [12/20/2017] [facility] 48284-541-71 Medications aspirin 81 mg oral tablet 1 tablet = 81 mg, By Mouth, Daily, # 30 tablet, 0 Refills, Maintenance, 03/11/17 15:49:45, Tablet Start Date: 03/11/17 Status: Ordered doxazosin 4 mg oral tablet 1 tablet, By Mouth, Daily, # 90 tablet, 3 Refills, Maintenance, 07/13/23 5:16:00 EST, [facility] 7[facility]13, 176.1, cm, 06/25/23 8:54:00 EST, Height, 146.1, kg, 08/29/22 15:57:00 EST, Dry Weight Start Date: 07/13/23 Status: Ordered Eliquis 5 mg oral tablet 1 tablet, By Mouth, 2 times a day, *STOP ASPIRIN*., # 60 tablet, 11 Refills, Maintenance, 07/13/23 5:16:00 EST, [facility] 09495, 176.1, cm, 06/25/23 8:54:00 EST, Height, 146.1, kg, 08/29/22 15:57:00 EST, Dry Weight Start Date: 07/13/23 Status: Ordered gabapentin 100 mg oral capsule 2, capsule, By Mouth, Daily at bedtime, # 180 capsule, Refills 1, Maintenance, 10/05/23 12:18:00 EST, Route to Pharmacy Electronically, [facility] 95421, 176.1, cm, 09/20/23 14:12:00 EST, Height, 146.1, kg, 08/29/22 15:57:00 EST, Dry Weight Start Date: 10/05/23 Status: Ordered Keppra 750 mg oral tablet 1 tablet = 750 mg, By Mouth, 2 times a day, # 60 tablet, 0 Refills, Maintenance, 12/01/23 11:42:00 EDT, Tablet, [facility]/pharmacy #[id number], Partial fill upon patient request if the prescription is for a schedule II opioid drug., 178, cm, 12/01/23 10:48:00 EDT... Start Date: 12/01/23 Stop Date: 12/31/23 Status: Ordered Metoprolol Succinate ER 100 mg oral tablet, extended release 1 tablet, By Mouth, Daily, # 90 tablet, 3 Refills, Maintenance, 07/09/23 13:03:00 EST, [facility] 14635, 176.1, cm, 06/25/23 8:54:00 EST, Height, 146.1, [...] 10/01/23 13:00:00 EST, Route to Pharmacy Electronically, [facility] 73823, 176.1, cm, 09/20/23 14:12:00 EST, Height, 146.1, kg, 08/29/22 15:57:00 EST, Dry Weight Start Date: 10/01/23 Status: Ordered Tadalafil (Eqv-Cialis) 20 mg oral tablet 1 tablet, By Mouth, Daily, PRN NEEDED FOR ERECTILE DYSFUNCTION, # 5 tablet, 2 Refills, Maintenance, 06/13/23 18:58:00 EST, [facility], 176.1, cm, 05/13/23 9:04:00 EDT, Height, 146.1, [...] Refills, Maintenance, 11/04/23 7:29:00 EDT, [facility], 176, cm, 10/25/23 12:56:00 EDT, Height, 146.1, kg, 08/29/22 15:57:00 EST, Dry Weight Start Date: 11/04/23 Status: Ordered valsartan 160 mg oral tablet 160 mg, 1, tablet, By Mouth, 2 times a day, # 180 tablet, Refills 4, Tot. Refills 4, Maintenance, 07/09/23 13:10:00 EST, Route to Pharmacy Electronically, [facility]/pharmacy #[id number], Partial fill upon patient request if the [...] Care Team Personnel Name: Alanis Harris Position: [facility] RN Supv Member Role: Primary Care Nurse Name: Brittani Anguiano RN Position: [facility] SN RN Member Role: Primary Care Nurse Name: Sherrell Yan RN Position: [facility] RN Member Role: Primary Care Nurse Name: Cortez Blunt MD Position: [facility] Physician - Primary Care Member Role: PCP Address: Address: [address] [place] [id number]- Name: Godwin Perkins RN Position: [facility] RN Member Role: Primary Care Nurse Name: Ron Babb RN Position: [facility] RN Member Role: Primary Care Nurse Care Team Related Persons Name: CECY NGUYEN Address: home [address] [place] [address] Name: LEIDY NGUYEN JR Address: home [address] [place] [address]
--- OUTSIDE RECORDS SUMMARY | 2024-05-03 22:11 | XMS_ITS | Continuity of Care Document ---
Author Organization [facility] Address [address] [place] [address]- Care Team Providers Care Refractory Furnace Designer Name Role Phone Merlene BYRNE, Cortez Kendall Primary Care Physician Encounter [facility] Date(s): 11/25/22 - 12/25/22 [facility] [address] [place] [address]- [place] Allergies, Adverse Reactions, Alerts Substance Reaction Severity Status lisinopril Active penicillins Rash Active Immunizations Given and Recorded Vaccine Date Status Refusal Reason tetanus/diphtheria/pertussis, acel(Tdap) 1 12/20/17 Given Not Given Vaccine Date Status Refusal Reason Influenza Virus Vaccine (oldterm) 06/21/19 Not Giv en Patient Refuses 1Result Comment: [12/20/2017] [facility] 17765-957-30 Medications Acetaminophen Daily, 0 Refills, Maintenance, 09/10/22 8:02:00 EST, Partial fill upon patient request if the prescription is for a schedule II opioid drug. Start Date: 09/10/22 Status: Ordered amiodarone 200 mg oral tablet 200 mg, 1, tablet, By Mouth, Daily, # 90 tablet, Refills 0, Tot. Refills 0, Maintenance, 10/06/22 9:50:00 EST, Route to Pharmacy Electronically, [facility]/pharmacy #[id number], Partial fill upon patient request if the prescription is for a schedule II opioid drug... Start Date: 10/06/22 Stop Date: 01/04/23 Status: Ordered amLODIPine 10 mg oral tablet 1 tablet, By Mouth, Daily, # 90 tablet, 3 Refills, Maintenance, 09/29/22 6:28:00 EST, [facility], 177.8, cm, 09/10/22 8:00:00 EST, Height, 146.1, kg, 08/29/22 15:57:00 EST, Dry Weight Start Date: 09/29/22 Status: Ordered aspirin 81 mg oral tablet 1 tablet = 81 mg, By Mouth, Daily, # 30 tablet, 0 Refills, Maintenance, 03/11/17 15:49:45, Tablet Start Date: 03/11/17 Status: Ordered dapagliflozin 10 mg oral tablet 1 tablet = 10 mg, By Mouth, Daily, # 90 tablet, 0 Refills, Maintenance, 10/06/22 9:48:00 EST, Tablet, [id number], Partial fill upon patient request if the prescription is for a schedule II opioid drug., 177.8, cm, 09/10/22 8:00:00 EST, Height,... Start Date: 10/06/22 Status: Ordered doxazosin 4 mg oral tablet 1 tablet, By Mouth, Daily, # 90 tablet, 1 Refills, Maintenance, 12/17/22 11:10:00 EDT, [facility] 63328, 176.1, cm, 10/21/22 11:09:00 EDT, Height, 146.1, kg, 08/29/22 15:57:00 EST, Dry Weight Start Date: 12/17/22 Status: Ordered Eliquis 5 mg oral tablet 1 tablet = 5 mg, By Mouth, 2 times a day, # 60 tablet, 5 Refills, Maintenance, 07/01/22 9:02:00 EST, Tablet, [id number], Partial fill upon patient request if the prescription is for a schedule II opioid drug., 178, cm, 07/01/22 7:55:00 EST, He... Start Date: 07/01/22 Status: Ordered gabapentin 100 mg oral capsule 2, capsule, By Mouth, Daily at bedtime, # 60 capsule, Refills 2, Maintenance, 09/28/22 14:04:00 EST, Route to Pharmacy Electronically, [facility] 78106, 177.8, cm, 09/10/22 8:00:00 EST, Height, 146.1,kg, 08/29/22 15:57:00 EST, Dry Weight Start Date: 09/28/22 Status: Ordered Metoprolol Succinate ER 100 mg oral tablet, extended release See Instructions, TAKE 1 TABLET BY MOUTH EVERY DAY, # 90 tablet, 1 Refills, Maintenance, 11/09/22 9:12:00 EDT, [facility]/pharmacy #[id number], 176.1, cm, 10/21/22 11:09:00 EDT, Height, 146.1, kg, 08/29/22 15:57:00 EST, Dry Weight Start Date: 11/09/22 Status: Ordered omeprazole 20 mg oral enteric coated capsule 1 capsule = 20 mg, By Mouth, Daily, (buys OTC), Maintenance, 06/22/22 16:42:00 EST, EC Capsule, ; Start Date: 06/22/22 Status: Ordered spironolactone 25 mg oral tablet 1, tablet, By Mouth, Daily, # 90 tablet, Refills 0, Tot. Refills 0, Maintenance, 11/09/22 9:07:00 EDT, Route to Pharmacy Electronically, [facility]/pharmacy #[id number], 176.1, cm, 10/21/22 11:09:00 EDT, Height, 146.1, kg, 08/29/22 15:57:00 EST, Dry Weight Start Date: 11/09/22 Status: Ordered Tadalafil (Eqv-Cialis) 20 mg oral tablet 1 tablet, By Mouth, Daily, PRN NEEDED FOR ERECTILE DYSFUNCTION, # 5 tablet, 2 Refills, Maintenance, 08/11/22 9:25:00 EST, [facility], 178, cm, 08/07/22 15:14:00 EST, Height, 147, kg, 08/04/2217:07:00 EST, Dry Weight Start Date: 08/11/22 Status: Ordered TADALAFIL 20 MG TABLET TADALAFIL [...] 3 Refills, Maintenance, 12/17/22 6:36:00 EDT, Tablet, [facility]/pharmacy #[id number], Partial fill upon patient request if the prescription is for a schedule II opioid drug., 176.1, cm, 10/21/22 11:09:00 ED... Start Date: 12/17/22 Stop Date: 12/12/23 Status: Ordered valsartan 160 mg oral tablet 160 mg, 1, tablet, By Mouth, 2 times a day, # 180 tablet, Refills 4, Tot. Refills 4, Maintenance, 10/19/22 13:24:00 EDT, Route to Pharmacy Electronically, [facility]/pharmacy #[id number], Partial fill upon patient request if the [...] Care team information Care Team Personnel Name: Lázaro Garcia RN Position: S RN Member Role: Primary Care Nurse Name: Alanis Harris Position: [facility] Supv Member Role: Primary Care Nurse Name: Brittani Anguiano RN Position: [facility] RN Member Role: Primary Care Nurse Name: Cortez Blunt MD Position: [facility] Primary Care Physician Member Role: PCP Address: Address: [address] [place] [id number]- Name: Ron Babb RN Position: S RN Member Role: Primary Care Nurse Care Team Related Persons Name: CECY NGUYEN Address: home [address] [place] [address] Name: LEIDY NGUYEN JR Address: [address] [place] [address]
--- OUTSIDE RECORDS SUMMARY | 2024-05-03 22:11 | XMS_ITS | Continuity of Care Document ---
Author Organization [facility] Kevin Darrlel Address [address] [place] [address]- Care Team Providers Care Supervisor Loading Name Role Phone Merlene BYRNE, Cortez Kendall Primary Care Physician Encounter [facility] Date(s): 02/17/23 - 03/19/23 [facility] Adult [address] [place] [address]- Allergies, Adverse Reactions, Alerts Substance Reaction Severity Status lisinopril cough Active penicillins Rash Active Immunizations Given and Recorded Vaccine Date Status Refusal Reason tetanus/diphtheria/pertussis, acel(Tdap) 1 12/20/17 Given Not Given Vaccine Date Status Refusal Reason Influenza Virus Vaccine (oldterm) 06/21/19 Not Giv en Patient Refuses 1Result Comment: [12/20/2017] [facility] 35797-111-91 Medications Acetaminophen Daily, 0 Refills, Maintenance, 09/10/22 8:02:00 EST, Partial fill upon patient request if the prescription is for a schedule II opioid drug. Start Date: 09/10/22 Status: Ordered amLODIPine 10 mg oral tablet 1 tablet, By Mouth, Daily, # 90 tablet, 3 Refills, Maintenance, 09/29/22 6:28:00 EST, [facility] ST[facility] 48983, 177.8, cm, 09/10/22 8:00:00 EST, Height, 146.1, [...] 0 Refills, Maintenance, 10/06/22 9:48:00 EST, Tablet, [facility]/pharmacy #[id number], Partial fill upon patient request if the prescription is for a schedule II opioid drug., 177.8, cm, 09/10/22 8:00:00 EST, Height,... Start Date: 10/06/22 Status: Ordered doxazosin 4 mg oral tablet 1 tablet, By Mouth, Daily, # 90 tablet, 1 Refills, Maintenance, 12/17/22 11:10:00 EDT, [facility], 176.1, cm, 10/21/22 11:09:00 EDT, Height, 146.1, kg, 08/29/22 15:57:00 EST, Dry Weight Start Date: 12/17/22 Status: Ordered Eliquis 5 mg oral tablet 1 tablet = 5 mg, By Mouth, 2 times a day, # 60 tablet, 5 Refills, Maintenance, 07/01/22 9:02:00 EST, Tablet, [facility]/pharmacy #[id number], Partial fill upon patient request if the prescription is for a schedule II opioid drug., 178, cm, 07/01/22 7:55:00 EST, He... Start Date: 07/01/22 Status: Ordered gabapentin 100 mg oral capsule 2, capsule, By Mouth, Daily at bedtime, # 60 capsule, Refills 2, Maintenance, 02/05/23 11:56:00 EDT, Route to Pharmacy Electronically, [facility], 176.1, cm, 12/21/22 16:31:00 EDT, Height, 146.1, kg, 08/29/22 15:57:00 EST, Dry Weight Start Date: 02/05/23 Status: Ordered Metoprolol Succinate ER 100 mg oral tablet, extended release See Instructions, TAKE 1 TABLET BY MOUTH EVERY DAY, # 90 tablet, 1 Refills, Maintenance, 11/09/22 9:12:00 EDT, [id number], 176.1, cm, 10/21/22 11:09:00 EDT, Height, 146.1, kg, 08/29/22 15:57:00 EST, Dry Weight Start Date: 11/09/22 Status: Ordered omeprazole 20 mg oral enteric coated capsule 1 capsule = 20 mg, By Mouth, Daily, (buys OTC), Maintenance, 06/22/22 16:42:00 EST, [facility]aps[facility], ; Start Date: 06/22/22 Status: Ordered spironolactone 25 mg oral tablet 1, tablet, By Mouth, Daily, # 90 tablet, Refills 0, Maintenance, 02/05/23 9:02:00 EDT, Route to Pharmacy Electronically, [facility], 176.1, cm, 12/21/22 16:31:00 EDT, Height, 146.1, kg, 08/29/2314:57:00 EST, Dry Weight Start Date: 02/05/23 Status: Ordered Tadalafil (Eqv-Cialis) 20 mg oral tablet 1 tablet, By Mouth, Daily, PRN NEEDED FOR ERECTILE DYSFUNCTION, # 5 tablet, 1 Refills, Maintenance, 01/25/23 20:35:00 EDT, [facility], 176.1, cm, 12/21/22 16:31:00 EDT, Height, 146.1, kg, 08/29/22 15:57:00 EST, Dry Weight Start Date: 01/25/23 Status: Ordered TADALAFIL 20 MG TABLET TADALAFIL [...] 3 Refills, Maintenance, 12/17/22 6:36:00 EDT, Tablet, [facility]/pharmacy #[id number], Partial fill upon patient request if the prescription is for a schedule II opioid drug., 176.1, cm, 10/21/22 11:09:00 ED... Start Date: 12/17/22 Stop Date: 12/12/23 Status: Ordered valsartan 160 mg oral tablet 160 mg, 1, tablet, By Mouth, 2 times a day, # 180 tablet, Refills 4, Tot. Refills 4, Maintenance, 10/19/22 13:24:00 EDT, Route to Pharmacy Electronically, [facility]/pharmacy #[id number], Partial fill upon patient request if the [...] Team Personnel Name: Lázaro Garcia RN Position: [facility] RN Member Role: Primary Care Nurse Name: Alanis Harris Position: [facility] RN Supv Member Role: Primary Care Nurse Name: Brittani Anguiano RN Position: [facility] RN Member Role: Primary Care Nurse Name: Cortez Blunt MD Position: [facility] Physician - Primary Care Member Role: PCP Address: Address: [address] [place] [id number]- Name: Ron Babb RN Position: [facility] RN Member Role: Primary Care Nurse Care Team Related Persons Name: CECY NGUYEN Address: [address] [place] [address] Name: LEIDY NGUYEN JR Address: [address] [place] [address]
--- OUTSIDE RECORDS SUMMARY | 2024-05-03 22:11 | XMS_ITS | Continuity of Care Document ---
Author Organization [facility] Kevin Darrell Address [address] [place] [address]- Care Team Providers Care Zookeeper Name Role Phone Merlene BYRNE, Cortez Kendall Primary Care Physician Encounter [facility] Date(s): 06/09/23 - 07/09/23 [facility] Adult [address] [place] [address]- Allergies, Adverse Reactions, Alerts Substance Reaction Severity Status lisinopril cough Active penicillins Rash Active Immunizations Given and Recorded Vaccine Date Status Refusal Reason tetanus/diphtheria/pertussis, acel(Tdap) 1 12/20/17 Given 1Result Comment: [12/20/2017] [facility] 50590-447-49 Medications Acetaminophen Daily, 0 Refills, Maintenance, 09/10/22 [...] Refills, Maintenance, 12/17/22 11:10:00 EDT, [facility], 176.1, cm, 10/21/22 11:09:00 EDT, Height, 146.1, kg, 08/29/22 15:57:00 EST, Dry Weight Start Date: 12/17/22 Status: Ordered Eliquis 5 mg oral tablet 1 tablet = 5 mg, By Mouth, 2 times a day, # 60 tablet, 5 Refills, Maintenance, 07/01/22 9:02:00 EST, Tablet, [facility]/pharmacy #[id number], Partial fill upon patient request if the prescription is for a schedule II opioid drug., 178, cm, 07/01/22 7:55:00 EST, He... Start Date: 07/01/22 Status: Ordered Farxiga 10 mg oral tablet 1 tablet = 10 mg, By Mouth, Daily, # 90 tablet, 4 Refills, Maintenance, 06/25/23 9:09:00 EST, Tablet, [facility]/pharmacy #[id number], Partial fill upon patient request if the prescription is for a schedule II opioid drug., 176.1, cm, 06/25/23 8:54:00 EST, Height,... Start Date: 06/25/23 Stop Date: 09/17/24 Status: Ordered gabapentin 100 mg oral capsule 2, capsule, By Mouth, Daily at bedtime, # 180 capsule, Refills 1, Tot. Refills 1, Maintenance, 05/10/23 13:26:00 EDT, [id number] 176.1, cm, 05/10/23 13:05:00 EDT, Height, 146.1, kg, 08/29/22 15:57:00 EST, Dry... Start Date: 05/10/23 Status: Ordered LORazepam 2 mg oral tablet 1 tablet = 2 mg, By Mouth, Once, one hour prior to procedure, # 1 tablet, 0 Refills, Soft Stop, 06/10/23 5:16:00 EDT, Tablet, [facility]/pharmacy #[id number], Partial fill upon patient request if the prescriptionis for a schedule II opioid drug., 176.1, cm, 05/13... Start Date: 06/10/23 Status: Ordered Metoprolol Succinate ER 100 mg oral tablet, extended release 1 tablet, By Mouth, Daily, # 90 tablet, 3 Refills, Maintenance, 07/09/23 13:03:00 EST, [facility] 76109, 176.1, cm, 06/25/23 8:54:00 EST, Height, 146.1, [...] 06/14/23 8:05:00 EST, Route to Pharmacy Electronically, [facility] STORE 31627, 176.1, cm, 05/13/23 9:04:00 EDT, Height, 146.1, kg, 08/29/22 15:57:00 EST, Dry Weight Start Date: 06/14/23 Status: Ordered Tadalafil (Eqv-Cialis) 20 mg oral tablet 1 tablet, By Mouth, Daily, PRN NEEDED FOR ERECTILE DYSFUNCTION, # 5 tablet, 2 Refills, Maintenance, 06/13/23 18:58:00 EST, [facility] STORE 80728, 176.1, cm, 05/13/23 9:04:00 EDT, Height, 146.1, [...] 3 Refills, Maintenance, 12/17/22 6:36:00 EDT, Tablet, [facility]/pharmacy #[id number], Partial fill upon patient request if the prescription is for a schedule II opioid drug., 176.1, cm, 10/21/22 11:09:00 ED... Start Date: 12/17/22 Stop Date: 12/12/23 Status: Ordered valsartan 160 mg oral tablet 160 mg, 1, tablet, By Mouth, 2 times a day, # 180 tablet, Refills 4, Tot. Refills 4, Maintenance, 07/09/23 13:10:00 EST, Route to Pharmacy Electronically, [facility]/pharmacy #[id number], Partial fill upon patient request if the [...] Care Team Personnel Name: Alanis Harris Position: [facility] RN Supv Member Role: Primary Care Nurse Name: Brittani Anguiano RN Position: [facility] SN RN Member Role: Primary Care Nurse Name: oCrtez Blunt MD Position: [facility] Physician - Primary Care Member Role: PCP Address: Address: [address] [place] [id number]- Name: Ron Babb RN Position: [facility] RN Member Role: Primary Care Nurse Care Team Related Persons Name: CECY NGUYEN Address: [address] [place] [address] Name: LEIDY NGUYEN JR Address: [address] [place] [address]
--- OUTSIDE RECORDS SUMMARY | 2024-05-03 22:11 | XMS_ITS | Continuity of Care Document ---
Author Organization [facility] Kevin Darrell Address [address] [place] [address]- Care Team Providers Care Tag Marker Name Role Phone Merlene BYRNE, Cortez Kendall Primary Care Physician [phone] Encounter [facility] Date(s): 07/21/23 - 08/20/23 [facility] Adult [address] [place] [address]- Allergies, Adverse Reactions, Alerts Substance Reaction Severity Status lisinopril cough Active penicillins Rash Active Immunizations Given and Recorded Vaccine Date Status Refusal Reason tetanus/diphtheria/pertussis, acel(Tdap) 1 12/20/17 Given 1Result Comment: [12/20/2017] [facility] 89727-405-87 Medications Acetaminophen Daily, 0 Refills, Maintenance, 09/10/22 [...] tablet, 3 Refills, Maintenance, 07/13/23 5:16:00 EST, [facility] STORE 80284, 176.1, cm, 06/25/23 8:54:00 EST, Height, 146.1, kg, 08/29/22 15:57:00 EST, Dry Weight Start Date: 07/13/23 Status: Ordered Eliquis 5 mg oral tablet 1 tablet, By Mouth, 2 times a day, *STOP ASPIRIN*., # 60 tablet, 11 Refills, Maintenance, 07/13/23 5:16:00 EST, [facility], 176.1, cm, 06/25/23 8:54:00 EST, Height, 146.1, kg, 08/29/22 15:57:00 EST, Dry Weight Start Date: 07/13/23 Status: Ordered Farxiga 10 mg oral tablet 1 tablet = 10 mg, By Mouth, Daily, # 90 tablet, 4 Refills, Maintenance, 06/25/23 9:09:00 EST, Tablet, [facility]/pharmacy #[id number], Partial fill upon patient request if the prescription is for a schedule II opioid drug., 176.1, cm, 06/25/23 8:54:00 EST, Height,... Start Date: 06/25/23 Stop Date: 09/17/24 Status: Ordered gabapentin 100 mg oral capsule 2, capsule, By Mouth, Daily at bedtime, # 180 capsule, Refills 1, Tot. Refills 1, Maintenance, 05/10/23 13:26:00 EDT, Route to Pharmacy Electronically, [facility]/pharmacy #[id number], 176.1, cm, 05/10/23 13:05:00 EDT, Height, 146.1, kg, 08/29/22 15:57:00 EST, Dry... Start Date: 05/10/23 Status: Ordered LORazepam 2 mg oral tablet 1 tablet = 2 mg, By Mouth, Once, one hour prior to procedure, # 1 tablet, 0 Refills, Soft Stop, 07/22/23 6:37:00 EST, Tablet, [facility]/pharmacy #[id number], Partial fill upon patient request if the prescriptionis for a schedule II opioid drug., 176.1, cm, 06/25... Start Date: 07/22/23 Status: Ordered Metoprolol Succinate ER 100 mg oral tablet, extended release 1 tablet, By Mouth, Daily, # 90 tablet, 3 Refills, Maintenance, 07/09/23 13:03:00 EST, [facility] STORE 51468, 176.1, cm, 06/25/23 8:54:00 EST, Height, 146.1, [...] 06/14/23 8:05:00 EST, Route to Pharmacy Electronically, [facility] STORE 16702, 176.1, cm, 05/13/23 9:04:00 EDT, Height, 146.1, kg, 08/29/22 15:57:00 EST, Dry Weight Start Date: 06/14/23 Status: Ordered Tadalafil (Eqv-Cialis) 20 mg oral tablet 1 tablet, By Mouth, Daily, PRN NEEDED FOR ERECTILE DYSFUNCTION, # 5 tablet, 2 Refills, Maintenance, 06/13/23 18:58:00 EST, [facility] STORE 95504, 176.1, cm, 05/13/23 9:04:00 EDT, Height, 146.1, [...] 3 Refills, Maintenance, 12/17/22 6:36:00 EDT, Tablet, [facility]/pharmacy #[id number], Partial fill upon patient request if the prescription is for a schedule II opioid drug., 176.1, cm, 10/21/22 11:09:00 ED... Start Date: 12/17/22 Stop Date: 12/12/23 Status: Ordered valsartan 160 mg oral tablet 160 mg, 1, tablet, By Mouth, 2 times a day, # 180 tablet, Refills 4, Tot. Refills 4, Maintenance, 07/09/23 13:10:00 EST, Route to Pharmacy Electronically, [facility]/pharmacy #[id number], Partial fill upon patient request if the [...] Care Team Personnel Name: Alanis Harris Position: [facility] RN Supv Member Role: Primary Care Nurse Name: Brittani Anguiano RN Position: [facility] RN Member Role: Primary Care Nurse Name: Cortez Blunt MD Position: [facility] Physician - Primary Care Member Role: PCP Address: Address: [address] [place] [id number]- Name: Ron Babb RN Position: [facility] RN Member Role: Primary Care Nurse Care Team Related Persons Name: CECY NGUYEN Address: home [address] [place] [address] Name: LEIDY NGUYEN JR Address: home [address] [place] [address]
--- OUTSIDE RECORDS SUMMARY | 2024-05-03 22:11 | XMS_ITS | Continuity of Care Document ---
Author Organization [facility] Kevin Darrell Address [address] [place] [address]- Care Team Providers Care Sr. Strategic Sourcing Manager Name Role Phone Merlene BYRNE, Cortez Kendall Primary Care Physician [phone] Encounter [facility] Date(s): 01/22/23 - 02/21/23 [facility] Adult [address] [place] [address]- Allergies, Adverse Reactions, Alerts Substance Reaction Severity Status lisinopril Active penicillins Rash Active Immunizations Given and Recorded Vaccine Date Status Refusal Reason tetanus/diphtheria/pertussis, acel(Tdap) 1 12/20/17 Given Not Given Vaccine Date Status Refusal Reason Influenza Virus Vaccine (oldterm) 06/21/19 Not Giv en Patient Refuses 1Result Comment: [12/20/2017] [facility] 21210-479-50 Medications Acetaminophen Daily, 0 Refills, Maintenance, 09/10/22 8:02:00 EST, Partial fill upon patient request if the prescription is for a schedule II opioid drug. Start Date: 09/10/22 Status: Ordered amLODIPine 10 mg oral tablet 1 tablet, By Mouth, Daily, # 90 tablet, 3 Refills, Maintenance, 09/29/22 6:28:00 EST, [facility] STORE 03157, 177.8, cm, 09/10/22 8:00:00 EST, Height, 146.1, kg, 08/29/22 15:57:00 EST, Dry Weight Start Date: 09/29/22 Status: Ordered aspirin 81 mg oral tablet 1 tablet = 81 mg, By Mouth, Daily, # 30 tablet, 0 Refills, Maintenance, 03/11/17 15:49:45, Tablet Start Date: 03/11/17 Status: Ordered Bactrim DS 800 mg-160 mg oral tablet 1 tablet, By Mouth, 2 times a day, for 10 days, # 20 tablet, 0 Refills, Acute 02/27/23 10:48:00 EDT, 02/17/23 10:48:00 EDT, [facility]/pharmacy #[id number], Partial fill upon patient request if the prescription is for a schedule II opioid drug., 1 tablet By Mouth... Start Date: 02/17/23 Stop Date: 02/27/23 Status: Ordered dapagliflozin 10 mg oral tablet 1 tablet = 10 mg, By Mouth, Daily, # 90 tablet, 0 Refills, Maintenance, 10/06/22 9:48:00 EST, Tablet, [facility]/pharmacy #[id number], Partial fill upon patient request if the prescription is for a schedule II opioid drug., 177.8, cm, 09/10/22 8:00:00 EST, Height,... Start Date: 10/06/22 Status: Ordered doxazosin 4 mg oral tablet 1 tablet, By Mouth, Daily, # 90 tablet, 1 Refills, Maintenance, 12/17/22 11:10:00 EDT, [facility] STORE 51348, 176.1, cm, 10/21/22 11:09:00 EDT, Height, 146.1, kg, 08/29/22 15:57:00 EST, Dry Weight Start Date: 12/17/22 Status: Ordered Eliquis 5 mg oral tablet 1 tablet = 5 mg, By Mouth, 2 times a day, # 60 tablet, 5 Refills, Maintenance, 07/01/22 9:02:00 EST, Tablet, [facility]/pharmacy #[id number], Partial fill upon patient request if the prescription is for a schedule II opioid drug., 178, cm, 07/01/22 7:55:00 EST, He... Start Date: 07/01/22 Status: Ordered gabapentin 100 mg oral capsule 2, capsule, By Mouth, Daily at bedtime, # 60 capsule, Refills 2, Maintenance, 02/05/23 11:56:00 EDT, Route to Pharmacy Electronically, [facility] STORE 81678, 176.1, cm, 12/21/22 16:31:00 EDT, Height, 146.1, kg, 08/29/22 15:57:00 EST, Dry Weight Start Date: 02/05/23 Status: Ordered Metoprolol Succinate ER 100 mg oral tablet, extended release See Instructions, TAKE 1 TABLET BY MOUTH EVERY DAY, # 90 tablet, 1 Refills, Maintenance, 11/09/22 9:12:00 EDT, [facility]/pharmacy #[id number], 176.1, cm, 10/21/22 11:09:00 EDT, [...] 02/05/23 9:02:00 EDT, Route to Pharmacy Electronically, [facility] STORE 59835, 176.1, cm, 12/21/22 16:31:00 EDT, Height, 146.1, kg, 08/29/2314:57:00 EST, Dry Weight Start Date: 02/05/23 Status: Ordered Tadalafil (Eqv-Cialis) 20 mg oral tablet 1 tablet, By Mouth, Daily, PRN NEEDED FOR ERECTILE DYSFUNCTION, # 5 tablet, 1 Refills, Maintenance, 01/25/23 20:35:00 EDT, [facility] STORE 17329, 176.1, cm, 12/21/22 16:31:00 EDT, Height, 146.1, [...] 3 Refills, Maintenance, 12/17/22 6:36:00 EDT, Tablet, [facility]/pharmacy #[id number], Partial fill upon patient request if the prescription is for a schedule II opioid drug., 176.1, cm, 10/21/22 11:09:00 ED... Start Date: 12/17/22 Stop Date: 12/12/23 Status: Ordered valsartan 160 mg oral tablet 160 mg, 1, tablet, By Mouth, 2 times a day, # 180 tablet, Refills 4, Tot. Refills 4, Maintenance, 10/19/22 13:24:00 EDT, Route to Pharmacy Electronically, [facility]/pharmacy #[id number], Partial fill upon patient request [...] Care Nurse Name: Alanis Harris Position: S RN Supv Member Role: Primary Care Nurse Name: Brittani Anguiano RN Position: [facility] RN Member Role: Primary Care Nurse Name: Cortez Blunt MD Position: [facility] Physician - Primary Care Member Role: PCP Address: Address: [address] [place] [address] [place] [address]- Name: Ron Babb RN Position: S RN Member Role: Primary Care Nurse Care Team Related Persons Name: CECY NGUYEN Address: [address] [place] [address] Name: LEIDY NGUYEN JR Address: [address] [place] [address]
--- OUTSIDE RECORDS SUMMARY | 2024-05-03 22:11 | XMS_ITS | Continuity of Care Document ---
Author Organization [facility] Darrell Address [address] [place] [address]- Care Team Providers Care Supervisory Forester Name Role Phone Merlene BYRNE, Cortez Kendall Primary Care Physician Encounter [facility] [place] Date(s): 06/25/22 - 07/25/22 [facility] Adult [address] [place] [address]- Allergies, Adverse Reactions, Alerts Substance Reaction Severity Status lisinopril Active penicillins Rash Active Immunizations Given and Recorded Vaccine Date Status Refusal Reason tetanus/diphtheria/pertussis, acel(Tdap) 1 12/20/17 Given Not Given Vaccine Date Status Refusal Reason Influenza Virus Vaccine (oldterm) 06/21/19 Not Giv en Patient Refuses 1Result Comment: [12/20/2017] [facility] 19873-254-87 Medications aspirin 81 mg oral tablet 1 tablet = 81 mg, By Mouth, Daily, # 30 tablet, 0 Refills, Maintenance, 03/11/17 15:49:45, Tablet Start Date: 03/11/17 Status: Ordered doxazosin 4 mg oral tablet 1 tablet, By Mouth, Daily, # 90 tablet, 1 Refills, Maintenance, 07/05/22 16:17:00 EST, [id number], 178, cm, 07/01/22 7:55:00 EST, Height Start Date: 07/05/22 Status: Ordered Eliquis 5 mg oral tablet 1 tablet = 5 mg, By Mouth, 2 times a day, # 60 tablet, 5 Refills, Maintenance, 07/01/22 9:02:00 EST, Tablet, [id number], Partial fill upon patient request if the prescription is for a schedule II opioid drug., 178, cm, 07/01/22 7:55:00 EST, He... Start Date: 07/01/22 Status: Ordered flecainide 50 mg oral tablet 50 mg, 1, tablet, By Mouth, Every 12 hours, # 60 tablet, Refills 1, Tot. Refills 1, Maintenance, 07/01/22 9:03:00 EST, Route to Pharmacy Electronically, [facility]/pharmacy #[id number], Partial fill upon patient request if the prescription is for a schedule II opi... Start Date: 07/01/22 Status: Ordered gabapentin 100 mg oral capsule 2, capsule, By Mouth, Daily at bedtime, # 60 capsule, Refills 2, Maintenance, 06/18/22 11:52:00 EST, Route to Pharmacy Electronically, [facility], 176.4, cm, 05/15/22 11:35:00 EDT, Height Start Date: 06/18/22 Status: Ordered Lasix 40 mg oral tablet 40 mg, 1, tablet, By Mouth, Daily, # 30 tablet, Refills 1, Tot. Refills 1, Maintenance, 07/01/22 9:02:00 EST, Route to Pharmacy Electronically, [id number], Partial fill upon patient request if the prescription is for a schedule II opioid drug.... Start Date: 07/01/22 Status: Ordered metoprolol 50 mg oral tablet, extended release 50 mg, 1, tablet, By Mouth, Daily, # 30 tablet, Refills 2, Tot. Refills 2, Maintenance, 07/01/22 9:03:00 EST, Route to Pharmacy Electronically, [facility]/pharmacy #[id number], Partial fill upon patient request if the prescription is for a schedule II opioid drug.... Start Date: 07/01/22 Status: Ordered omeprazole 20 mg oral enteric coated capsule 1 capsule = 20 mg, By Mouth, Daily, (buys OTC), Maintenance, 06/22/22 16:42:00 EST, EC Capsule, ; Start Date: 06/22/22 Status: Ordered Tadalafil (Eqv-Cialis) 20 mg oral tablet 1 tablet, By Mouth, Daily, PRN NEEDED FOR ERECTILE DYSFUNCTION, # 5 tablet, 2 Refills, Maintenance, 04/12/22 10:29:00 EDT, [facility], 176.4, cm, 02/02/22 11:18:00 EDT, Height Start Date: 04/12/22 Status: Ordered Problem List Condition Confirmation Course Effective Dates Status H ealth Status Informant Benign essential hypertension Confirmed Active Sleep related hypoventilation/hypox emia in other disease Confirmed Active Diverticulosis 1 Confirmed Active Hemorrhoids Confirmed Active Bilateral knee pain Confirmed Active Migraine Confirmed Active Obesity Confirmed Active JR (obstructive sleep apnea) Confirmed Active Severe obesity Confirmed Active 1PER 03/02/14 COLONOSCOPY-DR ANABELLA [facility] Social History Social History Type Response Smoking Status Never smoker entered on: 03/11/17 Sex Patient Care team information Care Team Personnel Name: Luis Varma RN Position: S RN Member Role: Primary Care Nurse Name: Brittani Anguiano RN Position: S RN Member Role: Primary Care Nurse Name: Cortez Blunt MD Position: [facility] Primary Care Physician Member Role: PCP Address: Address: [address] [place] [id number] Name: Edna Kelly RN Position: S RN Member Role: Primary Care Nurse Name: Ron Babb RN Position: S RN Member Role: Primary Care Nurse Care Team Related Persons Name: CECY NGUYEN Address: [address] [place] [address] Name: LEIDY NGUYEN JR Address: [address] [place] [address]
--- OUTSIDE RECORDS SUMMARY | 2024-05-03 22:11 | XMS_ITS | Continuity of Care Document ---
Author Organization [facility] Kevin Darrell Address [address] [place] [address]- Care Team Providers Care Helper Maintenance Cleaning Name Role Phone Merlene BYRNE, Cortez Kendall Primary Care Physician Encounter [facility] Date(s): 05/13/23 - 06/12/[address] [facility] Adult [address] [place] [address]- Allergies, Adverse Reactions, Alerts Substance Reaction Severity Status lisinopril cough Active penicillins Rash Active Immunizations Given and Recorded Vaccine Date Status Refusal Reason tetanus/diphtheria/pertussis, acel(Tdap) 1 12/20/17 Given 1Result Comment: [12/20/2017] [facility] 99034-832-05 Medications Acetaminophen Daily, 0 Refills, Maintenance, 09/10/22 [...] Refills, Maintenance, 12/17/22 11:10:00 EDT, [facility], 176.1, cm, 10/21/22 11:09:00 EDT, Height, 146.1, kg, 08/29/22 15:57:00 EST, Dry Weight Start Date: 12/17/22 Status: Ordered Eliquis 5 mg oral tablet 1 tablet = 5 mg, By Mouth, 2 times a day, # 60 tablet, 5 Refills, Maintenance, 07/01/22 9:02:00 EST, Tablet, [facility]/pharmacy #[id number], Partial fill upon patient request if the prescription is for a schedule II opioid drug., 178, cm, 07/01/22 7:55:00 EST, He... Start Date: 07/01/22 Status: Ordered gabapentin 100 mg oral capsule 2, capsule, By Mouth, Daily at bedtime, # 180 capsule, Refills 1, Tot. Refills 1, Maintenance, 05/10/23 13:26:00 EDT, Route to Pharmacy Electronically, [facility]/pharmacy #207, 176.1, cm, 05/10/23 13:05:00 EDT, Height, 146.1, kg, 08/29/22 15:57:00 EST, Dry... Start Date: 05/10/23 Status: Ordered LORazepam 2 mg oral tablet 1 tablet = 2 mg, By Mouth, Once, one hour prior to procedure, # 1 tablet, 0 Refills, Soft Stop, 06/10/23 5:16:00 EDT, Tablet, [facility]/pharmacy #[id number], Partial fill upon patient request if the prescriptionis for a schedule II opioid drug., 176.1, cm, 05/13... Start Date: 06/10/23 Status: Ordered Metoprolol Succinate ER 100 mg oral tablet, extended release See Instructions, TAKE 1 TABLET BY MOUTH EVERY DAY, # 90 tablet, 1 Refills, Maintenance, 11/09/22 9:12:00 EDT, [facility]/pharmacy #207, 176.1, cm, 10/21/22 11:09:00 EDT, [...] 02/05/23 9:02:00 EDT, Route to Pharmacy Electronically, [facility] STORE 77968, 176.1, cm, 12/21/22 16:31:00 EDT, Height, 146.1, kg, 08/29/2314:57:00 EST, Dry Weight Start Date: 02/05/23 Status: Ordered Tadalafil (Eqv-Cialis) 20 mg oral tablet 1 tablet, By Mouth, Daily, PRN NEEDED FOR ERECTILE DYSFUNCTION, # 5 tablet, 1 Refills, Maintenance, 01/25/23 20:35:00 EDT, [facility], 176.1, cm, 12/21/22 16:31:00 EDT, Height, 146.1, [...] 3 Refills, Maintenance, 12/17/22 6:36:00 EDT, Tablet, [facility]/pharmacy #[id number], Partial fill upon patient request if the prescription is for a schedule II opioid drug., 176.1, cm, 10/21/22 11:09:00 ED... Start Date: 12/17/22 Stop Date: 12/12/23 Status: Ordered valsartan 160 mg oral tablet 160 mg, 1, tablet, By Mouth, 2 times a day, # 180 tablet, Refills 4, Tot. Refills 4, Maintenance, 10/19/22 13:24:00 EDT, Route to Pharmacy Electronically, [facility]/pharmacy #[id number], Partial fill upon patient request [...] Care Team Personnel Name: Alanis Harris Position: [facility] RN Supv Member Role: Primary Care Nurse Name: Brittani Anguiano RN Position: [facility] SN RN Member Role: Primary Care Nurse Name: Cortez Blunt MD Position: [facility] Physician - Primary Care Member Role: PCP Address: Address: [address] [place] [id number]- Name: Ron Babb RN Position: [facility] RN Member Role: Primary Care Nurse Care Team Related Persons Name: CECY NGUYEN Address: home [address] [place] [address] Name: LEIDY NGUYEN JR Address: [address] [place] [address]
--- OUTSIDE RECORDS SUMMARY | 2024-05-03 22:11 | XMS_ITS | Continuity of Care Document ---
Author Organization [facility] Address [address] [place] [address]- Care Team Providers Care Public Works Supervisor Name Role Phone Merlene BYRNE, Cortez Kendall Primary Care Physician Encounter [facility] Date(s): 10/01/20 - 10/31/[address] [address] Attending Physician: Admtr, Uri Admitting Physician: Admtr, Ar8 Referring Physician: Admtr, Ar8 Allergies, Adverse Reactions, Alerts Substance Reaction Severity Status lisinopril Active penicillins Rash Active Immunizations Given and Recorded Vaccine Date Status Refusal Reason tetanus/diphtheria/pertussis, acel(Tdap) 1 12/20/17 Given Not Given Vaccine Date Status Refusal Reason Influenza Virus Vaccine (oldterm) 06/21/19 Not Giv en Patient Refuses 1Result Comment: [12/20/2017] [facility] 70628-390-87 Medications amLODIPine 10 mg oral tablet 10 mg, 1, tablet, By Mouth, Daily, # 30 tablet, Refills 5, Tot. Refills 5, Soft Stop, 06/26/20 7:57:00 EST, Route to Pharmacy Electronically, [facility]/pharmacy #[id number], 176.4, cm, 06/26/20 7:01:00 EST, Height Start Date: 06/26/20 Status: Ordered aspirin 81 mg oral tablet 1 tablet = 81 mg, By Mouth, Daily, # 30 tablet, 0 Refills, Maintenance, 03/11/17 15:49:45, Tablet Start Date: 03/11/17 Status: Ordered doxazosin 4 mg oral tablet 1 tablet, By Mouth, Daily, # 30 tablet, 5 Refills, Maintenance, 06/26/20 7:57:00 EST, [facility], 176.4, cm, 06/26/20 7:01:00 EST, Height Start Date: 06/26/20 Status: Ordered irbesartan 150 mg oral tablet 1 tablet, By Mouth, Daily, # 30 tablet, 5 Refills, Maintenance, 06/26/20 7:57:00 EST, [facility], 176.4, cm, 06/26/20 7:01:00 EST, Height Start Date: 06/26/20 Status: Ordered Pedialyte oral solution See Instructions, 32 ounces by mouth daily, # 30 each, 5 Refills, Maintenance, 06/26/20 7:59:00 EST, [facility]/pharmacy #207, Partial fill upon patient request, 32 ounces by mouth daily, 176.4, cm, 06/26/20 7:01:00 EST, Height Start Date: 06/26/20 Status: Ordered Problem List Condition Effective Dates Status Health Status Inform ant Benign essential hypertension(Confirmed) Active Sleep related hypoventilation/hypoxemia in other disease(Confirmed) Active Diverticulosis(Confirmed) 1 Active Hemorrhoids(Confirmed) Active Bilateral knee pain(Confirmed) Active Migraine(Confirmed) Active Obesity(Confirmed) Active JR (obstructive sleep apnea)(Confirmed) Active 1PER 03/02/14 COLONOSCOPY-DR ANABELLA CONCEPCION Social History Social History Type Response Smoking Status Never smoker entered on: 03/11/17 Sex
--- OUTSIDE RECORDS SUMMARY | 2024-05-03 22:11 | XMS_ITS | Continuity of Care Document ---
Author Organization [facility] Address [address] [place] [address]- Care Team Providers Care Psychometrist Name Role Phone Merlene BYRNE, Cortez Kendall Primary Care Physician Encounter [facility] Date(s): 07/01/22 - 08/27/22 [facility] [address] [place] [address]- Attending Physician: Bonifacio MYERS, Kassandra Admitting Physician: Bonifacio MYERS, Kassandra Allergies, Adverse Reactions, Alerts Substance Reaction Severity Status lisinopril Active penicillins Rash Active Immunizations Given and Recorded Vaccine Date Status Refusal Reason tetanus/diphtheria/pertussis, acel(Tdap) 1 12/20/17 Given Not Given Vaccine Date Status Refusal Reason Influenza Virus Vaccine (oldterm) 06/21/19 Not Giv en Patient Refuses 1Result Comment: [12/20/2017] [facility] 83366-043-17 Medications amiodarone 400 mg oral tablet 1 tablet = 400 mg, By Mouth, 2 times a day, to start after cardioversion. take twice a day for 1 week then one a day until you see EP and they provide further instruction, # 60 tablet, 0 Refills, Maintenance, 08/23/22 13:52:00 EST, [facility] Start Date: 08/23/22 Stop Date: 09/22/22 Status: Ordered aspirin 81 mg oral tablet [...] 5 Refills, Maintenance, 07/01/22 9:02:00 EST, Tablet, [facility]/pharmacy #[id number], Partial fill upon patient request if the prescription is for a schedule II opioid drug., 178, cm, 07/01/22 7:55:00 EST, He... Start Date: 07/01/22 Status: Ordered furosemide 40 mg oral tablet 80 mg, 2, tablet, Daily, TAKE 1 TABLET BY MOUTH EVERY DAY Start Date: 08/25/22 Status: Ordered gabapentin 100 mg oral capsule 2, capsule, By Mouth, Daily at bedtime, # 60 capsule, Refills 2, Maintenance, 06/18/22 11:52:00 EST, Route to Pharmacy Electronically, [id number], 176.4, cm, 05/15/22 11:35:00 EDT, Height Start Date: 06/18/22 Status: Ordered metoprolol succinate 100 mg oral capsule, extended release 1 capsule = 100 mg, By Mouth, Daily, # 30 capsule, 5 Refills, Maintenance, 08/12/22 10:28:00 EST, ER Capsule, [facility]/pharmacy #[id number], Partial fill upon patient request if the prescription is for a schedule II opioid drug., 178, cm, 08/12/22 9:59:00 EST, H... Start Date: 08/12/22 Stop Date: 02/08/23 Status: Ordered omeprazole 20 mg oral enteric coated capsule 1 capsule = 20 mg, By Mouth, Daily, (buys OTC), Maintenance, 06/22/22 16:42:00 EST, EC Capsule, ; Start Date: 06/22/22 Status: Ordered Tadalafil (Eqv-Cialis) 20 mg oral tablet 1 tablet, By Mouth, Daily, PRN NEEDED FOR ERECTILE DYSFUNCTION, # 5 tablet, 2 Refills, Maintenance, 08/11/22 9:25:00 EST, [id number], 178, cm, 08/07/22 15:14:00 EST, Height, 147, kg, 08/04/2217:07:00 EST, Dry Weight Start Date: 08/11/22 Status: Ordered valsartan 40 mg oral tablet 40 mg, 1, tablet, By Mouth, 2 times a day, # 60 tablet, Refills 0, Tot. Refills 0, Maintenance, 08/07/22 16:11:00 EST, Route to Pharmacy Electronically, [facility], Partial fill upon patient request if the prescription is for a schedule... Start Date: 08/07/22 Status: Ordered Problem List Condition Confirmation Course [...] Care team information Care Team Personnel Name: Brittani Anguiano RN Position: [facility] RN Member Role: Primary Care Nurse Name: Cortez Blunt MD Position: [facility] Primary Care Physician Member Role: PCP Address: Address: [address] [place] [address]- Name: Edna Kelly RN Position: S RN Member Role: Primary Care Nurse Name: Ron Babb RN Position: [facility] RN Member Role: Primary Care Nurse Care Team Related Persons Name: CECY NGUYEN Address: home [address] [place] [address] Name: LEIDY NGUYEN JR Address: [address] [place] [address]
--- OUTSIDE RECORDS SUMMARY | 2024-05-03 22:11 | XMS_ITS | Continuity of Care Document ---
Author Organization [facility] Address [address] [place] [address]- Care Team Providers Care Application Development Intern Name Role Phone Cortez Blunt MD Primary Care Physician Encounter [facility] Date(s): 01/22/21 - 01/29/21 [facility] Adult [address] [place] [address]- Attending Physician: Cortez Blunt MD Allergies, Adverse Reactions, Alerts Substance Reaction Severity Status lisinopril Active penicillins Rash Active Immunizations Given and Recorded Vaccine Date Status Refusal Reason tetanus/diphtheria/pertussis, acel(Tdap) 1 12/20/17 Given Not Given Vaccine Date Status Refusal Reason Influenza Virus Vaccine (oldterm) 06/21/19 Not Giv en Patient Refuses 1Result Comment: [12/20/2017] [facility] 25757-427-73 Medications amLODIPine 10 mg oral tablet 1 tablet, By Mouth, Daily, # 30 tablet, 5 Refills, Maintenance, 01/29/21 8:22:00 EDT, [id number], 176.4, cm, 12/25/20 7:05:00 EDT, Height Start Date: 01/29/21 Status: Ordered aspirin 81 mg oral tablet 1 tablet = 81 mg, By Mouth, Daily, # 30 tablet, 0 Refills, Maintenance, 03/11/17 15:49:45, Tablet Start Date: 03/11/17 Status: Ordered Cialis 20 mg oral tablet 1 tablet = 20 mg, By Mouth, Daily, PRN as needed for erectile dysfunction, # 5 tablet, 5 Refills, Maintenance, 12/25/20 8:45:00 EDT, Tablet, [facility]/pharmacy #[id number], Partial fill upon patient request if the prescription is for a schedule II opioid drug., 1... Start Date: 12/25/20 Status: Ordered doxazosin 4 mg oral tablet 1 tablet, By Mouth, Daily, # 30 tablet, 5 Refills, Maintenance, 12/31/20 17:04:00 EDT, [id number], 176.4, cm, 12/25/20 7:05:00 EDT, Height Start Date: 12/31/20 Status: Ordered gabapentin 100 mg oral capsule 100 mg, 1, capsule, By Mouth, Daily at bedtime, # 30 capsule, Refills 2, Tot. Refills 2, Maintenance, 12/25/20 8:43:00 EDT, Route to Pharmacy Electronically, [facility]/pharmacy #[id number], Partial fill upon patient request if the prescription is for a schedule I... Start Date: 12/25/20 Status: Ordered irbesartan 150 mg oral tablet 1 tablet, By Mouth, Daily, # 30 tablet, 5 Refills, Maintenance, 01/15/21 13:26:00 EDT, [facility]/pharmacy#[id number], 176.4, cm, 12/25/20 7:05:00 EDT, Height Start Date: 01/15/21 Status: Ordered Problem List Condition Effective Dates [...]
--- OUTSIDE RECORDS SUMMARY | 2024-05-03 22:11 | XMS_ITS | Continuity of Care Document ---
Author Organization [facility] Address [address] [place] [address]- Care Team Providers Care Manager Animation Name Role Phone Cortez Blunt MD Primary Care Physician [place] [facility] Date(s): 07/22/22 - 07/29/22 [facility] [address] [place] [address]- Attending Physician: Cortez Blunt MD Allergies, Adverse Reactions, Alerts Substance Reaction Severity Status lisinopril Active penicillins Rash Active Immunizations Given and Recorded Vaccine Date Status Refusal Reason tetanus/diphtheria/pertussis, acel(Tdap) 1 12/20/17 Given Not Given Vaccine Date Status Refusal Reason Influenza Virus Vaccine (oldterm) 06/21/19 Not Giv en Patient Refuses 1Result Comment: [12/20/2017] [facility] 33142-911-95 Medications aspirin 81 mg oral tablet 1 [...] Every 12 hours, # 60 tablet, Refills 5, Tot. Refills 5, Maintenance, 07/28/22 10:21:00 EST, Route to Pharmacy Electronically, [facility]/pharmacy #[id number], Partial fill upon patientrequest if the prescription is for a schedule II op... Start Date: 07/28/22 Stop Date: 01/24/23 Status: Ordered gabapentin 100 mg oral capsule 2, capsule, By Mouth, Daily at bedtime, # 60 capsule, Refills 2, Maintenance, 06/18/22 11:52:00 EST, Route to Pharmacy Electronically, [id number], 176.4, cm, 05/15/22 11:35:00 EDT, Height Start Date: 06/18/22 Status: Ordered Lasix 40 mg oral tablet 40 mg, 1, tablet, By Mouth, Daily, # 30 tablet, Refills 5, Tot. Refills 5, Maintenance, 07/28/22 10:21:00 EST, Route to Pharmacy Electronically, [facility]/pharmacy #[id number], Partial fill upon patient request if the prescription is for a schedule II opioid drug... Start Date: 07/28/22 Stop Date: 01/24/23 Status: Ordered metoprolol 100 mg oral tablet, extended release 100 mg, 1, tablet, By Mouth, Daily, # 30 tablet, Refills 5, Tot. Refills 5, Maintenance, 07/28/22 10:22:00 EST, Route to Pharmacy Electronically, [facility]/pharmacy #[id number], Partial fill upon patient requestif the prescription is for a schedule II opioid taylor... Start Date: 07/28/22 Stop Date: 01/24/23 Status: Ordered omeprazole 20 mg oral enteric coated capsule 1 capsule = 20 mg, By Mouth, Daily, (buys OTC), Maintenance, 06/22/22 16:42:00 EST, EC Capsule, ; Start Date: 06/22/22 Status: Ordered Tadalafil (Eqv-Cialis) 20 mg oral tablet 1 tablet, By Mouth, Daily, PRN NEEDED FOR ERECTILE DYSFUNCTION, # 5 tablet, 2 Refills, Maintenance, 04/12/22 10:29:00 EDT, [facility], 176.4, cm, 02/02/22 11:18:00 EDT, Height Start [...] Confirmed Active 1PER 03/02/14 COLONOSCOPY-DR ANABELLA CONCEPCION Vital Signs Most recent to oldest [Reference Range]: 1 2 Height 178 cm (07/22/22 4:30 PM) 178 cm (07/22/22 4:18 PM) Weight 149.2 kg (07/22/22 4:18 PM) Oxygen Saturation [94-100 %] 96 % (07/22/22 4:18 PM) Pulse Rate [55-90 bpm] 87 bpm (07/22/22 4:18 PM) Body Mass Index [18.5-24.99 kg/m2] 47.09 kg/m2 *>HHI* (07/22/22 4:18 PM) Blood Pressure [90-138/55-84 mm Hg] 148/ 86mm Hg *H* (07/22/22 4:30 PM) 143/99mm Hg *H* (07/22/22 4:18 PM) Temperature [96.8-100.4 DegF] 97.7 DegF (07/22/22 4:18 PM) Mode of Delivery (Oxygen) Room air (07/22/22 4:18 PM) Blood pressure sites Arm, right (07/22/22 4:30 PM) Arm, right (07/22/22 4:18 PM) Temperature Route Temporal (07/22/22 4:18 PM) Weight Obtained Via Standing scale (07/22/22 4:18 PM) Social History Social History Type Response Smoking Status Never smoker entered on: 03/11/17 Sex Note * Kristin Coe: PERFORM, SIGN, VERIFY Event Display: Patient Education/Instruction Authored Date: [id number] [facility] *BMP So [place] Zambrano Clinical Summary Name LEIDY NGUYEN Age 61 Years 1960 PCP [facility]unt [id number] Date 07/22/2022 16:07:00 Additional Instructions: Scheduled Appointments?? Future Appointments ?*[facility]??Cardiology1 ?[address]??[place],??[place],??[address] ?Phone:??--?Fax:??-- ?Appt. Date:??07/28/2022?7:45 AM ?Scheduled Provider:??Bonifacio MYERS, Kassandra ?*BMP??So??[place]??[facility] ?[address],??[address] ?Phone:??--?Fax:??-- ?Appt. Date:??08/06/2022?9:05 AM ?Scheduled Provider:??Cortez Blunt MD Follow-Up Instructions ?? Diagnosis Unspecified atrial fibrillation Medications: Please continue your medications until treatment is completed or stopped by your provider. Discuss any questions related to medications with your provider. Medications to Continue with No Changes These medications were not printed or sent to your pharmacy apixaban (Eliquis 5 mg oral tablet) 1 tab(s) Oral twice a day. Refills: 5. Next Dose: Aspirin (aspirin 81 mg oral tablet) 1 tab(s) Oral Daily. Next Dose: Doxazosin (doxazosin 4 mg oral tablet) 1 tab(s) Oral Daily. Refills: 1. Next Dose: Flecainide (flecainide 50 mg oral tablet) 1 tab(s) Oral every 12 hours. Refills: 1. Next Dose: Furosemide (Lasix 40 mg oral tablet) 1 tab(s) Oral Daily. Refills: 1. Next Dose: Gabapentin (gabapentin 100 mg oral capsule) 2 capsule Oral Daily at Bedtime. Refills: 2. Next Dose: Metoprolol (metoprolol 50 mg oral tablet, extended release) 1 tab(s) Oral Daily. Refills: 2. Next Dose: Omeprazole (omeprazole 20 mg oral enteric coated capsule) 1 capsule Oral Daily. (buys OTC). Next Dose: tadalafil (Tadalafil (Eqv-Cialis) 20 mg oral tablet) 1 tab(s) Oral Daily as needed NEEDED FOR ERECTILE DYSFUNCTION. Refills: 2. Next Dose: No Longer Take the Following Medications Carvedilol (carvedilol 3.125 mg oral tablet) 1 tab(s) Oral twice a day. Refills: 3. Allergy Info:?? penicillins; lisinopril Medications Given This Visit Future Orders ?No future orders Vital Signs Height 178 cm Weight 149.2 kg BMI 47.09 kg/m2 Blood Pressure 148 mm Hg/86 mm Hg Temperature 97.7 DegF Pulse Rate 87 bpm Respiratory Rate 02 Sat Mode of Delivery 96 %/Room air You can now view a summary of your hospital visit from the comfort of your home through a free online portal called [employer]. [employer] is a website that allows you to securely view your medical information including discharge summary, medications and follow-up visits. ??You can alsosend a secure electronic message to your doctor???s office to request appointments, renew medications or just ask a question. You can enroll at [email or web address] or register during your next office visit. Disclaimer:?? The information provided is of a general nature and is intended to be used in conjunction with the recommendations and advice of your health care practitioner. ??Every effort has been made to ensure that the information provided is accurate and complete at the time it is provided to you however, as your needs change, or, as new ??information becomes available, different or additional instructions may be required. If you have questions, please consult with your primary care provider or pharmacist, as appropriate. ??This information is not intended to serve as substitution for assessment and evaluation by a qualified health care provider. If you do not have a primary care provider, you may find a [facility] provider by calling [facility] at [phone]. For information about the plan of care including goals and instructions for your diagnosis, please see the patient education orders section of this document. Patient Education Materials?? The content of this educational material or handout may have been modified, supplemented, or adapted from its original content and format to support your individualized medical care. Patient Care team information Care Team Personnel Name: Luis Varma RN Position: [facility] RN Member Role: Primary Care Nurse Name: Brittani Anguiano RN Position: S RN Member Role: Primary Care Nurse Name: Cortez Blunt MD Position: [facility] Primary Care Physician Member Role: PCP Address: Address: [address] [place] [address]- Name: Edna Kelly RN Position: S RN Member Role: Primary Care Nurse Name: Ron Babb RN Position: S RN Member Role: Primary Care Nurse Care Team Related Persons Name: CECY NGUYEN Address: home [address] [place] [address] Name: LEIDY NGUYEN JR Address: [address] [place] [address]
--- OUTSIDE RECORDS SUMMARY | 2024-05-03 22:11 | XMS_ITS | Continuity of Care Document ---
Author Organization [facility] Address [address] [place] [address]- Care Team Providers Care Staff Writer Name Role Phone Merlene BYRNE, Cortez Kendall Primary Care Physician Encounter [facility] Date(s): 01/14/21 - 02/13/21 [facility] [address] [place] [address]- Allergies, Adverse Reactions, Alerts Substance Reaction Severity Status lisinopril Active penicillins Rash Active Immunizations Given and Recorded Vaccine Date Status Refusal Reason tetanus/diphtheria/pertussis, acel(Tdap) 1 12/20/17 Given Not Given Vaccine Date Status Refusal Reason Influenza Virus Vaccine (oldterm) 06/21/19 Not Giv en Patient Refuses 1Result Comment: [12/20/2017] [facility] 90267-652-07 Medications amLODIPine 10 mg oral tablet 1 tablet, By Mouth, Daily, # 30 tablet, 5 Refills, Maintenance, 01/29/21 8:22:00 EDT, [facility], 176.4, cm, 12/25/20 7:05:00 EDT, Height Start [...] 5 Refills, Maintenance, 12/25/20 8:45:00 EDT, Tablet, [facility]/pharmacy #[id number], Partial fill upon patient request if the prescription is for a schedule II opioid drug., 1... Start Date: 12/25/20 Status: Ordered doxazosin 4 mg oral tablet 1 tablet, By Mouth, Daily, # 30 tablet, 5 Refills, Maintenance, 12/31/20 17:04:00 EDT, [facility], 176.4, cm, 12/25/20 7:05:00 EDT, Height Start Date: 12/31/20 Status: Ordered gabapentin 100 mg oral capsule 100 mg, 1, capsule, By Mouth, Daily at bedtime, # 30 capsule, Refills 2, Tot. Refills 2, Maintenance, 12/25/20 8:43:00 EDT, Route to Pharmacy Electronically, [facility]/pharmacy #[id number], Partial fill upon patient request if the prescription is for a schedule I... Start Date: 12/25/20 Status: Ordered irbesartan 150 mg oral tablet 1 tablet, By Mouth, Daily, # 30 tablet, 5 Refills, Maintenance, 01/15/21 13:26:00 EDT, [facility]/pharmacy#[id number], 176.4, cm, 12/25/20 7:05:00 EDT, Height Start [...]
--- OUTSIDE RECORDS SUMMARY | 2024-05-03 22:12 | XMS_ITS | Continuity of Care Document ---
Author Organization [facility] ter Address [address] [place] [id number] Care Team Providers Care [facility] Dentist Name Role Phone Merlene BYRNE, Cortez Kendall Primary Care Physician [place] [id number] Date(s): 06/22/22 - 07/01/[address] [id number] Encounter Diagnosis New onset a-fib(Final) - 06/22/22 Hypertension(Final) - 06/22/22 Obesity(Final) - 06/22/22 Discharge Disposition: A-D/C Home Attending Physician: Justyn Pat MD, Joe Jones Admitting Physician: Agus Cordero MD Referring Physician: Not on Staff, Referring MD Allergies, Adverse Reactions, Alerts Substance Reaction Severity Status lisinopril Active penicillins Rash Active Immunizations Given and Recorded Vaccine Date Status Refusal Reason tetanus/diphtheria/pertussis, acel(Tdap) 1 12/20/17 Given Not Given Vaccine Date Status Refusal Reason Influenza Virus Vaccine (oldterm) 06/21/19 Not Giv en Patient Refuses 1Result Comment: [12/20/2017] [facility] [id number] Medications aspirin 81 mg oral tablet 1 tablet = 81 mg, By Mouth, Daily, # 30 tablet, 0 Refills, Maintenance, 03/11/17 15:49:45, Tablet Start Date: 03/11/17 Status: Ordered doxazosin 2 mg oral tablet 4 mg, Tablet, By Mouth, 07/01/22 9:00:00 EST Start Date: 07/01/22 Stop Date: 07/01/22 Status: Completed doxazosin 4 mg oral tablet 1 tablet, By Mouth, Daily, # 90 tablet, 1 Refills, [id number], 176.4, cm, 08/15/21 9:23:00 EST, Height Start Date: 01/17/22 Status: Ordered Eliquis 5 mg oral tablet 1 tablet = 5 mg, By Mouth, 2 times a day, # 60 tablet, 5 Refills, Maintenance, 07/01/22 9:02:00 EST, Tablet, [facility] #[id number], Partial fill upon patient request if the prescription is for a schedule II opioid drug., 178, cm, 07/01/22 7:55:00 EST, He... Start Date: 07/01/22 Status: Ordered flecainide 50 mg oral tablet 50 mg, 1, tablet, By Mouth, Every 12 hours, # 60 tablet, Refills 1, Tot. Refills 1, Maintenance, 07/01/22 9:03:00 EST, Route to Pharmacy Electronically, [facility]/pharm[facility] #[id number], Partial fill upon patient request if the prescription is for a schedule II opi... Start Date: 07/01/22 Status: Ordered gabapentin 100 mg oral capsule 2, capsule, By Mouth, Daily at bedtime, # 60 capsule, Refills 2, Maintenance, 06/18/22 11:52:00 EST, Route to Pharmacy Electronically, [id number], 176.4, cm, 05/15/22 11:35:00 EDT, Height Start Date: 06/18/22 Status: Ordered gabapentin 100 mg oral capsule 200 mg, Capsule, By Mouth, 06/30/22 21:00:00 EST Start Date: 06/30/22 Stop Date: 06/30/22 Status: Completed Lasix 40 mg oral tablet 40 mg, 1, tablet, By Mouth, Daily, # 30 tablet, Refills 1, Tot. Refills 1, Maintenance, 07/01/22 9:02:00 EST, Route to Pharmacy Electronically, [facility] #[id number], Partial fill upon patient request if the prescription is for a schedule II opioid drug.... Start Date: 07/01/22 Status: Ordered metoprolol 50 mg oral tablet, extended release 50 mg, 1, tablet, By Mouth, Daily, # 30 tablet, Refills 2, Tot. Refills 2, Maintenance, 07/01/22 9:03:00 EST, Route to Pharmacy Electronically, [facility] #[id number], Partial fill upon patient request if the prescription is for a schedule II opioid drug.... Start Date: 07/01/22 Status: Ordered metoprolol 50 mg oral tablet, extended release 50 mg, XL Tablet, By Mouth, 07/01/22 9:00:00 EST Start Date: 07/01/22 Stop Date: 07/01/22 Status: Completed omeprazole 20 mg oral enteric coated capsule 1 capsule = 20 mg, By Mouth, Daily, (buys OTC), Maintenance, 06/22/22 16:42:00 EST, EC Capsule, ; Start Date: 06/22/22 Status: Ordered Tadalafil (Eqv-Cialis) 20 mg oral tablet 1 tablet, By Mouth, Daily, PRN NEEDED FOR ERECTILE DYSFUNCTION, # 5 tablet, 2 Refills, Maintenance, 04/12/22 10:29:00 EDT, [id number], 176.4, cm, 02/02/22 11:18:00 EDT, Height Start [...] Confirmed Active 1PER 03/02/14 COLONOSCOPY-DR ANABELLA CONCEPCION Results Radiology Reports * Exam Date Time Procedure Performing Provider Status 06/22/22 12:57 PM Chest 2 Views Frontal and Lat Darrin ez , Starr; Auth (Verified) Notes: (Chest 2 Views Frontal and Lat) Reason For Exam: Chest Pain;Other: RESULT: Chest 2 Views Frontal and Lat Chest 2 Views Frontal and Lat Hx of Present Illness: went to pcp wednesday for hip knee pain,found new onset afib, sent home; Reason: Chest Pain; COMPARISON: None. FINDINGS: LINES AND TUBES: None. LUNGS AND PLEURA: Mild cephalization of the pulmonary vessels with coarse interstitial markings. Trace bilateral pleural effusions. No pneumothorax. HEART, MEDIASTINUM AND SADIE: Heart is at the upper limits of normal for size. Normal mediastinal and hilar contour. BONES AND SOFT TISSUES: No acute abnormality. IMPRESSION: Coarse interstitial markings with trace bilateral pleural effusions, suggestive of pulmonary congestion. I have personally reviewed the images and I agree with this report. WSN: [id number] Ordering Physician: Ratna Combs Dictated By: Mina Crystal MD Dictated Date/Time: 06/22/22 1:22 pm Reviewed By: oCy Carlos MD, V Signed By: Coy Carlos MD, V Signed Date/Time: 06/22/22 1:27 pm Transcribed By: SHAYY Transcribed Date/Time: 06/22/22 1:19 pm Vital Signs Most recent to oldest [Reference Range]: 1 2 3 Height 178 cm (07/01/22 7:55 AM) 178 cm (07/01/22 2:38 AM) 178 cm (06/30/22 8:24 PM) Weight 150.2 kg (06/30/22 6:39 AM) 150.2 kg (06/29/22 3:59 AM) 152.0 kg (06/28/22 4:00 AM) Oxygen Saturation [94-100 %] 95 % (07/01/22 7:55 AM) 100 % (07/01/22 2:38 AM) 95 % (06/30/22 8:24 PM) Pulse Rate [55-90 bpm] 67 bpm (07/01/22 10:38 AM) 57 bpm (07/01/22 7:55 AM) 60 bpm (07/01/22 2:38 AM) Body Mass Index [18.5-24.99 kg/m2] 47.41 kg/m2 *>HHI* (06/29/22 3:59 AM) 47.69 kg/m2 *>HHI* (06/26/22 2:32 AM) 48.92 kg/m2 *>HHI* (06/25/22 2:00 AM) Blood Pressure [90-138/55-84 mm Hg] 141/80mm Hg *H* (07/01/22 10:38 AM) 142/80mm Hg *H* (07/01/22 10:37 AM) 141/80mm Hg *H* (07/01/22 7:55 AM) Respiratory Rate [16-30 br/min] 18 br/min (07/01/22 7:55 AM) 14 br/min *L* (07/01/22 2:38 AM) 18 br/min (06/30/22 8:53 PM) Temperature [96.8-100.4 DegF] 97.8 DegF (07/01/22 7:55 AM) 97.9 DegF (07/01/22 2:38 AM) 97.9 DegF (06/30/22 8:24 PM) Liters per Minute 4 L/min (06/30/22 10:16 AM) 3 L/min (06/23/22 7:36 AM) 3 L/min (06/23/22 2:53 AM) Mode of Delivery (Oxygen) Room air (07/01/22 7:55 AM) BiPAP (07/01/22 2:38 AM) Room air (06/30/22 8:24 PM) Blood pressure sites Arm, left (07/01/22 7:55 AM) Arm, right (07/01/22 2:38 AM) Arm, right (06/30/22 8:24 PM) Temperature Route Oral (07/01/22 7:55 AM) Axillary (07/01/22 2:38 AM) Oral (06/30/22 8:24 PM) Weight Obtained Via Bed scale (06/29/22 3:59 AM) Bed scale (06/26/22 2:32 AM) Bed scale (06/25/22 2:00 AM) Social History Social History Type Response Smoking Status Never smoker entered on: 03/11/17 Sex Male Admission evaluation note * Gil BYRNE, Agus: PERFORM, MODIFY, MODIFY, MODIFY Event Display: Admission Note Authored Date: Patient: ??LEIDY NGUYEN ? Age:??61 Years?Sex:??Male?:??1960?? Chief Complaint/Reason for Consultation SOB, dizziness History of Present Illness Mr. Mike is a 61-year-old male with past medical history of obstructive sleep apnea on CPAP, hypertension, knee pain, hemorrhoids came to the ED with complaints of shortness of breath, lightheadedness, dizziness. ?? Patient was diagnosed with atrial fibrillation on Wednesday by his PCP.?? Patient went to see his PCP because of left hip and knee pain.?? EKG was done and he was found to have A. fib.?? He was started on Eliquis and carvedilol and was told to go to the emergency department if there is worsening symptoms. ?? Patient was in usual state of health until 2 weeks back when he started to have generalized weakness more in his legs.?? He had episodes of dizziness and feeling of heaviness in the chest.?? This wasassociated with shortness of breath.?? Per patient he used to walk 2 miles every day previously butfor the past 2 weeks he had to stop multiple times because of shortness of breath.?? He had to stop5 times a week back.?? On Wednesday he go on his well because of shortness of breath.?? He also on noticed worsening of bilateral lower extremity swelling.?? He does say he has chronic leg swelling.?? Because he had worsening of hip and knee pain he went to the PCP after that.?? During the weekend patient continued to have shortness of breath, chest heaviness and dizzy spells.?? He came to the ED. This morning??he had??nasal congestion,??sore throat and cough??which later resolved. ?? Patient is never smoker.?? He never drank alcohol.?? Denies any recreational drug use. His father because of heart disease when he was 62. ?? In the ED patient was noted to be in A. fib with RVR with heart rate of 140s.?? BNP elevated at 964.?? Troponin negative.?? He is admitted for further management Review of Systems A full review of systems was completed and is otherwise negative except as mentioned in history of present illness. Objective Vital Signs?? Temperature: 99.1 DegF (06/22/22 12:14:00) Temperature Route: Oral (06/22/22 12:14:00) Pulse Rate:??105 bpm??High (06/22/22 14:52:00) Respiratory Rate: 16 br/min (06/22/22 14:52:00) Systolic Blood Pressure: 118 mm Hg (06/22/22 14:52:00) Diastolic Blood Pressure: 72 mm Hg (06/22/22 14:52:00) Blood pressure sites: Arm, right (06/22/22 14:52:00) Mean Arterial Pressure: 86 mm Hg (06/22/22 11:38:00) Pulse Pressure: 46 mm Hg (06/22/22 14:52:00) Oxygen Saturation: 95 % (06/22/22 14:52:00) Mode of Delivery (Oxygen): Room air (06/22/22 14:52:00) ? Physical Exam General:??Alert, awake, not in?? acute cardiopulmonary distress. Ear, Nose and Throat:??Oropharynx clear, mucous membranes moist.??no thrush Neck:??Supple, Full range of motion. Difficult to access JVD Respiratory:??Bibasal occational crackles. No wheezing, rales or rhonchi. Cardiovascular:??Heart sounds normal. Regular rate and rhythm, no murmurs Gastrointestinal:??Abdomen soft, non-tender, non-distended. Normal bowel sounds. Genitourinary:??No costovertebral angle tenderness. Neurologic:??Cranial nerves II-XII grossly intact. No focal neurological deficits.?? Skin:??2= b/l peddal edema Musculoskeletal:??No cyanosis or clubbing. No gross deformities. Assessment/Plan Mr. Mike is a 61-year-old male with past medical history of obstructive sleep apnea on CPAP, hypertension, knee pain, hemorrhoids who was recently diagnosed with Atrial fibrillation came to the ED with complaints of shortness of breath, lightheadedness, dizziness. ??In the ED he was noted to have A. fib with RVR. ??Also noted to??be slightly fluid overloaded. ? Atrial fibrillation with RVR He was diagnosed with A. fib on Wednesday??and started on Eliquis and Coreg A. fib rate of 113, normal QT intervals, no ST or T wave abnormalities Trop <0.01; BNP 964 SOB, slight cough, Slight fluid overload with bibasal crackles and LE edema on exam CXR:Coarse interstitial markings with trace bilateral pleural effusions, suggestive of pulmonary congestion. Plan: s/p cardizem IV in ED BP labile. Hold coreg Start metoprolol 12.5mg PO 3 times a day for rate control Continue Eliquis ECHO tele ?? Congestive heart failure ACS rule out As above 2 week h/o worsening exertional sob, bibasal crackles and LE edema on exam Trop <0.01; BNP 964 CXR:Coarse interstitial markings with trace bilateral pleural effusions, suggestive of pulmonary congestion. CHF-likely in the setting of A. fib, need to rule out ACS Plan Telemetry monitoring,??trend troponin Lasix 20 mg IV once? ? >??monitor response??and??continue if required Input output monitoring, daily weight Echo ordered Cardiology consult ?? Hypertension Metoprolol as above. Hold amlodipine and Coreg ? Obstructive sleep apnea??on CPAP Morbid obesity?? CPAP ordered ?? Left knee pain Tylenol as needed ?? Full code Cardiac diet DVT prophylaxis???Eliquis ? Histories Allergies Allergies ?(Active and Proposed Allergies Only) lisinopril? (Severity: Unknown severity, Onset: Unknown) penicillins? (Severity: Unknown severity, Onset: Unknown) ?Reactions: Rash ? Past Medical History/Problem List Active Problems??(9) Benign essential hypertension Bilateral knee pain Diverticulosis Hemorrhoids Migraine Obesity JR (obstructive sleep apnea) Severe obesity Sleep related hypoventilation/hypoxemia in other disease ? Past Surgical History Polysomnogram: 02/26/15 Transthoracic echocardiography: 01/22/15 Colonoscopy: 03/02/14 Arthroscopy ? Social History Alcohol Details:??Use: Current. ??Other: [employer] only at [employer]. Employment/School Details:??Status: Employed. ??Other: [employer] school and nondenominational. Exercise Details:??Self assessment: Poor condition. ??Regular exercise: No. Home/Environment Details:??Living situation: Home/Independent. ??Lives with: Spouse. Nutrition/Health Details:??Diet: Regular. ??Caffeine intake amount: 20 oz cup 2-3 a day. ??Feels highly stressed: Yes. Sexual Details:??Sexually involved in last 6 months: Yes. ??Sexual orientation: Heterosexual. ??Gender identity: Male. ??Preferred pronoun: He/him. Substance Abuse Details:??Use: Never. Tobacco Details:??Never smoker ? Medications Home Medications Amlodipine (amLODIPine 10 mg oral tablet)?1?tab(s)?By Mouth?Daily apixaban (Eliquis 5 mg oral tablet)?1?tab(s)?5?Milligram?By Mouth?2 times a day?Stop ASA Aspirin (aspirin 81 mg oral tablet)?1?tab(s)?81?Milligram?By Mouth?Daily Carvedilol (carvedilol 3.125 mg oral tablet)?3.125?Milligram?1?tablet?By Mouth?2 times a day Doxazosin (doxazosin 4 mg oral tablet)?1?tab(s)?By Mouth?Daily Gabapentin (gabapentin 100 mg oral capsule)?2?capsule?By Mouth?Daily at bedtime tadalafil (Tadalafil (Eqv-Cialis) 20 mg oral tablet)?1?tab(s)?By Mouth?Daily?as needed? NEEDED FOR ERECTILE DYSFUNCTION ? Inpatient Medications Medications (11) Active SCHEDULED: (4) Apixaban 5 mg Tablet (Eliquis) ??5 mg, By Mouth, 2 times a day Doxazosin 2 mg Tablet (doxazosin 2 mg oral tablet) ??4 mg, By Mouth, Daily Gabapentin 100 mg Capsule (gabapentin 100 mg oral capsule) ??200 mg, By Mouth, Daily at bedtime NaCl 0.9% Flush 3ml (NaCL 0.9% Flush) ??3 mL, IV Push, Every 8 hours CONTINUOUS: (0) PRN: (7) Acetaminophen 325 mg Tablet (Acetaminophen Tablet) ??650 mg, By Mouth, Every 4 hours Dextromethorphan-Guaifenesin 20 mg-200 mg/10 mL Liqu UD (Robitussin DM Liquid) ??10 mL, By Mouth, Every 4 hours Melatonin 3 mg Tablet (Melatonin Tablet) ??3 mg, By Mouth, Daily at bedtime NaCl 0.9% Flush 3ml (NaCL 0.9% Flush) ??3 mL, IV Push, Every 8 hours Polyethylene Glycol 17 Gm Powder (MiraLax Powder) ??17 Gm 1 pack/packet, By Mouth, Daily Senna 8.6 mg / Docusate 50 mg tablet (Docusate/Senna Tablet) ??1 tablet, By Mouth, 2 times a day Simethicone 80 mg Chewable Tablet (Simethicone Tablet) ??80 mg, Chew, 3 times a day ? Results Recent Labs BLOOD COUNT & DIFF WBC 7.2 k/mm3 ()?? 06/22/2022 11:21 RBC 4.28 m/mm3 (Low)?? 06/22/2022 11:21 Hgb 13.0 Gm/dL (Low)?? 06/22/2022 11:21 Hct 38.1 % (Low)?? 06/22/2022 11:21 MCV 89.0 femtoliters ()?? 06/22/2022 11:21 MCH 30.4 pg ()?? 06/22/2022 11:21 MCHC 34.1 g/dL ()?? 06/22/2022 11:21 Platelet Count 158 k/mm3 ()?? 06/22/2022 11:21 RDW-SD 44.2 femtoliters ()?? 06/22/2022 11:21 MPV 11.0 femtoliters ()?? 06/22/2022 11:21 Nucleated RBC (Automated) 0.0 #/100 WBC'S ()?? 06/22/2022 11:21 Abs. NRBC 0.0 k/mm3 ()?? 06/22/2022 11:21 Abs. Neut 5.6 k/mm3 ()?? 06/22/2022 11:21 Abs. Lymph 0.7 k/mm3 (Low)?? 06/22/2022 11:21 Abs. [place] 0.8 k/mm3 ()?? 06/22/2022 11:21 Abs. Eo 0.1 k/mm3 ()?? 06/22/2022 11:21 Abs. Baso 0.0 k/mm3 ()?? 06/22/2022 11:21 Neut % 77.3 % (High)?? 06/22/2022 11:21 Lymph % 9.4 % (Low)?? 06/22/2022 11:21 [place] % 10.8 % (High)?? 06/22/2022 11:21 Eos % 1.5 % ()?? 06/22/2022 11:21 Baso % 0.4 % ()?? 06/22/2022 11:21 Imm Gran 0.6 % ()?? 06/22/2022 11:21 Abs. Imm Gran 0.0 k/mm3 ()?? 06/22/2022 11:21 ?? CARDIAC Troponin T Quant <0.01 ng/mL ()?? 06/22/2022 11:21 Nt-Probnp 964 pg/mL (High)?? 06/22/2022 11:21 ?? CHEM GENERAL Sodium 144 mmol/L ()?? 06/22/2022 11:21 Potassium 3.6 mmol/L ()?? 06/22/2022 11:21 Chloride 109 mmol/L (High)?? 06/22/2022 11:21 Bicarbonate Level 26 mmol/L ()?? 06/22/2022 11:21 Anion Gap 9 ()?? 06/22/2022 11:21 Glucose Level 106 mg/dL (High)?? 06/22/2022 11:21 BUN 16 mg/dL ()?? 06/22/2022 11:21 Creatinine-Blood 0.8 mg/dL ()?? 06/22/2022 11:21 Estimated GFR Creatinine 102 ML/MIN/1.73 M2 ()?? 06/22/2022 11:21 Calcium 9.0 mg/dL ()?? 06/22/2022 11:21 ?? ENDOCRINE/TUMOR MARKER TSH 1.77 uIU/mL ()?? 06/22/2022 11:21 ?? HEME OTHER Hold Blue Top SPECIMEN DISCARDED AFTER 4 HOURS. ()?? 06/22/2022 11:21 ?? VIROLOGY COVID-19 POC Result NEGATIVE ()?? 06/22/2022 10:29 ? EKG study * Event Display: ECG 12-Lead Authored Date: Please click on pdf link to open report * Event Display: ECG 12-Lead Authored Date: Ventricular Rate: 57 BPM Atrial Rate: 57 BPM P-R Interval: 174 ms QRS Duration: 100 ms Q-T Interval: 430 ms QTC Calculation(Bazett): 418 ms P [place]: 44 degrees R [place]: -2 degrees T [place]: -10 degrees Sinus bradycardia Otherwise normal ECG When compared with ECG of 28-JUN-2022 11:19, Sinus rhythm has replaced Atrial fibrillation Confirmed by YIN SALINAS MD ([id number]) on 06/30/2022 1:11:02 PM [place]: YIN SALINAS MD * Event Display: ECG 12-Lead Authored Date: Please click on pdf link to open report * Event Display: ECG 12-Lead Authored Date: Ventricular Rate: 79 BPM QRS Duration: 100 ms Q-T Interval: 360 ms QTC Calculation(Bazett): 412 ms R [place]: 6 degrees T [place]: -11 degrees Atrial fibrillation Cannot rule out Anterior infarct , age undetermined Abnormal ECG When compared with ECG of 24-JUN-2022 16:26, No significant change was found Confirmed by NINO GLORIA MD () on 06/28/2022 3:22:34 PM [place]: NINO GLORIA MD * Event Display: ECG 12-Lead Authored Date: Please click on pdf link to open report * Event Display: ECG 12-Lead Authored Date: Ventricular Rate: 93 BPM QRS Duration: 98 ms Q-T Interval: 334 ms QTC Calculation(Bazett): 415 ms R [place]: 11 degrees T [place]: -8 degrees Atrial fibrillation Abnormal ECG When compared with ECG of 22-JUN-2022 13:49, MANUAL COMPARISON REQUIRED, DATA IS UNCONFIRMED Confirmed by NINO GLORIA MD ([id number]) on 06/24/2022 5:15:52 PM [place]: NINO GLORIA MD Heart * Event Display: Echocardiogram - Complete Authored Date: [id number] Transthoracic Echocardiography Report (TTE) Patient Demographics Patient Name LEIDY NGUYEN Date of Study 06/23/2022 Corporate Gender Male Facility Race Ethnicity Date of 1960 Height: 69 inches Age 61 year(s) Weight: 330.69 pounds Accession Number [id number] BSA: 2.56 m2 Room Number M511 BMI: 48.83 kg/m2 Referring Physician Gil Goldsmith Interpreting Ghassan Nieves MD Physician Financial Services Assistant Ev Gotti Fellow Donny Shen [facility] Indications Atrial fibrillation. Clinical History Morbid obesity Atrial fibrillation. JR on CPAP Hypertension. Study Data Type of Study TTE procedure:Echo Complete-Doppler, Colorflow, M-Mode. Study Date06/23/2022 Start Time: 10:38 AM Study Location: [facility] [place] Study Status: Bedside Patient Status: FRANCO Technical Quality: Technically difficult due to obesity. Blood Pressure:127/58 mmHg EKG: Atrial fibrillation HR: 90 bpm 2D Measurements LV Diastolic Dimension: 5.58 cm LV Systolic Dimension: 4.2 cm LV Septum Diastolic: 1.05 cm LV PW Diastolic: 1.02 cm AO Root Dimension: 3.6 cm RV Diastolic Dimension: 4.16 cm LA Dimension: 5.5 cm LA ESV (BP):121.52 ml LVOT Stroke Volume: 92.24 ml LA ESV Index: 47 ml/m2 Stroke Volume Index36.03 ml/m2 LVOT: 2.5 cm Cardiac Index:3.24 l/min/m2 Ascending Aorta:3.7 cm Doppler Measurements AV Peak Velocity: 141 cm/s AV Peak Gradient: 7.95 mmHg AV Mean Gradient: 5 mmHg AV VTI:24.1 cm LVOT Peak Velocity: 81.4 cm/s LVOT VTI18.8 cm AV Area (Continuity):3.83 cm2 Cardiac Anatomy Left Ventricle/Interventricular Septum The left ventricular size is normal. Left ventricular wall thickness is normal. Left ventricular systolic function is grossly normal/preserved. Images inadequate to estimate LVEF or assess regional wall motion. Unable to assess diastolic function due to atrial fibrillation. Left Atrium/Interatrial Septum The left atrium is moderately dilated. Aortic Valve The aortic valve is trileaflet and appears mildly thickened. There is no aortic regurgitation. There is no aortic stenosis. Mitral Valve The mitral valve appears grossly normal. There is mild mitral regurgitation. There is no significant mitral stenosis. Aorta The ascending aorta and aortic root are normal in size (when indexed to body surface area). Right Ventricle The right ventricle is poorly visualized. The right ventricular size and function appear grossly normal. Right Atrium The right atrium is normal in size. Pulmonic Valve The pulmonic valve is poorly visualized. There is trace pulmonic regurgitation. Tricuspid Valve The tricuspid valve is poorly visualized. There is trace tricuspid regurgitation. Pumonary Artery Unable to estimate pulmonary artery systolic pressure. Venous Structures The inferior vena cava size is dilated with blunted inspiratory collapse. The central venous pressure estimation is elevated, 15mmHg. Pericardium/Extracardiac There is a trace circumferential pericardial effusion. Summary Technically difficult study. The left ventricular size is normal. Left ventricular wall thickness is normal. Left ventricular systolic function is grossly normal/preserved. Images inadequate to estimate LVEF or assess regional wall motion. The right ventricular size and function appear grossly normal. The left atrium is moderately dilated. No obvious valve dysfunction on available images. The central venous pressure estimation is elevated, 15mmHg. Unable to estimate pulmonary artery systolic pressure. There is a trace circumferential pericardial effusion. Comparison Comparison is made to the study of August 04, 2018. Images inadequate for serial comparison. Signature * Event Display: Echocardiogram - Complete Authored Date: [id number] US Heart Transesophageal * Event Display: Trans-esophageal Echocardiogram Authored Date: [id number] Transesophageal Echocardiography Report (BENNIE) Patient Demographics Patient Name LEIDY NGUYEN Date of Study 06/30/2022 Corporate Gender Male Facility Race Ethnicity Date of 1960 Height: 69 inches Age 61 year(s) Weight: 330.69 pounds Accession Number [id number] BSA: 2.56 m2 Room Number M511 BMI: 48.83 kg/m2 Referring Physician Edy ORDAZ Interpreting Cristobal Summers MD Not on Staff Physician Referring MD Financial Services Assistant Indications Atrial fibrillation. Additional Indications:Cardioversion Study Data Type of Study BENNIE procedure:BENNIE with Doppler and Colorflow, 3D Rendering without post processing. Procedure Information:The procedure, including risks and benefits, was explained to the patient and informed consent was obtained. Time out was performed pre-procedure. The transesophageal probe was inserted by the attending automotive engineer. There were no complications. Heart sounds irregular, no murmur . Breath sounds clear throughout all lobes . Study Date06/30/2022 Start Time: 09:38 AM Study Location: [facility] [place] BENNIE Study Status: BENNIE Suite Patient Status: Routine Blood Pressure:143/102 mmHg EKG: Atrial fibrillation Variable [id number] BENNIE Performed By: Cristobal Summers MD Type of Anesthesia: Anesthesia administered by anesthesiologist. 2D Measurements LV Diastolic Dimension: 6.42 cm LV Systolic Dimension: 4.83 cm LV Septum Diastolic: 1.09 cm LV PW Diastolic: 1.18 cm RV Diastolic Dimension: 4.55 cm Ascending Aorta:3.61 cm Cardiac Anatomy Left Ventricle/Interventricular Septum The left ventricular size is normal for BSA. The LV systolic function is severely reduced . The left ventricular ejection fraction is 35-40 %. Left Atrium/Interatrial Septum There is no thrombus in the left atrial appendage. Left atrial appendage function is mildly reduced . The interatrial septum appears intact. Aortic Valve The aortic valve is trileaflet . There is no significant aortic regurgitation. There is no significant aortic stenosis. Mitral Valve The mitral valve opening is normal. There is moderate mitral regurgitation mostly from the lateral commissure. Real time (live) 3D imaging reveals normal mitral valve leaflet structure and function. Aorta The ascending aorta and aortic root are normal in size. There is mild plaque in the descending aorta . Right Ventricle The right ventricle is mildly dilated. Right ventricular systolic function is mildly to moderately reduced. Pulmonic Valve The pulmonic valve appears grossly normal. Tricuspid Valve The tricuspid valve appears normal . There is trace tricuspid valve regurgitation. Pumonary Artery The pulmonary artery appears grossly normal. Venous Structures The left upper pulmonary vein demonstrates systolic blunting . The right upper pulmonary vein demonstrates normal venous return . The inferior vena cava is moderately dilated with poor inspiratory collapse consistent with elevated right atrial pressures. Pericardium/Extracardiac There is no significant pericardial effusion. Summary The left ventricular size is normal for BSA. The LV systolic function is severely reduced . The left ventricular ejection fraction is 35-40 %. There is no thrombus in the left atrial appendage. Left atrial appendage function is mildly reduced . The interatrial septum appears intact. The mitral valve opening is normal. There is moderate mitral regurgitation mostly from the lateral commissure. Real time (live) 3D imaging reveals normal mitral valve leaflet structure and function. The right ventricle is mildly dilated. Right ventricular systolic function is mildly to moderately reduced. The inferior vena cava is moderately dilated with poor inspiratory collapse consistent with elevated right atrial pressures. Impressions No left atrial appendage thrombus Recommendation Proceed with cardioversion Comparison No prior study available for comparison. Signature * Event Display: Trans-esophageal Echocardiogram Authored Date: Note * Justyn Pat MD, Joe Jones: PERFORM Event Display: Discharge/Transfer Note Hospital Authored Date: Patient: ??LEIDY NGUYEN ? Age:??61 Years?Sex:??Male?:??1960?? Patient Information Discharge Location: Primary Care Physician: Cortez Blunt MD Admit Date/Time: 06/22/22 15:17 Discharge Disposition Discharge Disposition: Home: No Services Discharge Diagnosis Hypertension (I10) New onset a-fib (I48.91) Obesity (E66.9) Diastolic heart failure-chronic Volume overload JR-on CPAP _ Discharge Medications apixaban (Eliquis 5 mg oral tablet)?1?tab(s)?5?Milligram?By Mouth?2 times a day Aspirin (aspirin 81 mg oral tablet)?1?tab(s)?81?Milligram?By Mouth?Daily Doxazosin (doxazosin 4 mg oral tablet)?1?tab(s)?By Mouth?Daily Flecainide (flecainide 50 mg oral tablet)?50?Milligram?1?tablet?By Mouth?Every 12hours Furosemide (Lasix 40 mg oral tablet)?40?Milligram?1?tablet?By Mouth?Daily Gabapentin (gabapentin 100 mg oral capsule)?2?capsule?By Mouth?Daily at bedtime Metoprolol (metoprolol 50 mg oral tablet, extended release)?50?Milligram?1?tablet?ByMouth?Daily Omeprazole (omeprazole 20 mg oral enteric coated capsule)?1?capsule?20?Milligram?By Mouth?Daily?(buys OTC) tadalafil (Tadalafil (Eqv-Cialis) 20 mg oral tablet)?1?tab(s)?By Mouth?Daily?as needed? NEEDED FOR ERECTILE DYSFUNCTION ? Medications Started Toprol Flecainide lasix Medications Discontinued Norvasc Coreg Future Appointments Wednesday 7:45 AM EST ?? With: Bonifacio MYERS, Kassandra Where: [facility] [address] [place] [address]- 2021 9:05 AM EST ?? With: Merlene BYRNE, Cortez Kendall Where: [facility] [address] [place] [address]- Objective Assessment and Plan Assessment:?61-year-old male with past medical history of obstructive sleep apnea on CPAP, hypertension, kneepain, hemorrhoids who was recently diagnosed with Atrial fibrillation came to the ED with complaints of shortness of breath, lightheadedness, dizziness. He was admitted for A. fib with RVR and decompe nsated congestive heart failure. Managed with iv diuresis and??underwent BENNIE with cardioversion on 06/30/22-reverted to sinus rhythm. Initiated on Fecainide after cardioversion. Monitor showing sinusrhythm after cardioversion-will be discharged today. ?Atrial fibrillation with RVR ? s/p BENNIE with cardioversion-06/30 ?He was diagnosed with A. fib on Wednesday and started on Eliquis and Coreg ?EKG: A. fib with RVR, normal QT intervals, no ST or T wave abnormalities ?Trop <0.01 x 4; BNP 964 ?SOB, slight cough, Slight fluid overload with bibasal crackles and LE edema on exam ?CXR:Coarse interstitial markings with trace bilateral pleural effusions, suggestive of pulmonary congestion. ?CHADVasc- 2 (for HTN and CHF) ?ECHO: Incomplete but grossly normal EF. ? Plan: ?Discharge today ?f/u with??cardiology ?Toprol to 50 mg daily ?Continue Eliquis?Flecainide 50 mg BID ? Decompensated Congestive heart failure- Likely HFpEF (grossly normal EF) ?h/o worsening exertional sob, ?Bibasal crackles and LE edema on exam ?Trop <0.01 x 4; BNP 964 ?CXR:Coarse interstitial markings with trace bilateral pleural effusions, suggestive of pulmonary congestion. ? Plan ?continue Lasix 40 mg??daily ?On ASA ?continue toprol?Hypertension ?On Toprol now ?Discontinued amlodipine and Coreg ? Obstructive sleep apnea on CPAP ?Morbid obesity ?CPAP ? Left knee pain ?Tylenol as needed ? Full code ?Cardiac diet ?DVT prophylaxis???Eliquis ? Discharge Planning:? Vital Signs?? Temperature: 97.8 DegF (07/01/22 07:55:00) Temperature Route: Oral (07/01/22 07:55:00) Pulse Rate: 57 bpm (07/01/22 07:55:00) Respiratory Rate: 18 br/min (07/01/22 07:55:00) Systolic Blood Pressure:??141 mm Hg??High (07/01/22 07:55:00) Diastolic Blood Pressure: 80 mm Hg (07/01/22 07:55:00) Blood pressure sites: Arm, left (07/01/22 07:55:00) Mean Arterial Pressure: 100 mm Hg (07/01/22 07:55:00) Pulse Pressure: 61 mm Hg (07/01/22 07:55:00) Oxygen Saturation: 95 % (07/01/22 07:55:00) Liters per Minute: 4 L/min (06/30/22 10:16:00) Mode of Delivery (Oxygen): Room air (07/01/22 07:55:00) Early Warning Score: 4 (07/01/22 07:55:51) ? . Physical Exam Constitutional: Alert, in no distress. Mental Status: Oriented to person, place and time. Head: Normocephalic. Neck: Supple, Full range of motion. Respiratory: Clear to auscultation. No wheezing, rales or rhonchi. Cardiovascular: S1 S2 regular. No murmurs, rubs or gallops. Gastrointestinal: Abdomen soft, non-tender, non-distended. Genitourinary: No costovertebral angle tenderness. Neurologic: . Moves all extremities spontaneously. Sensation intact bilaterally. Skin: No rashes or lesions. No petechiae or purpura.?? Musculoskeletal: LE edema resolving [facility] Pending Results Add On Lab Order ordered on 06/22/2022 Add On Lab Order ordered on 06/23/2022 COVID-19 (2019 Novel Coronavirus) PCR ordered on 06/25/2022 Patient Education Titles Flecainide Oral Tablet?? Furosemide Oral Tablet?? Apixaban Oral Tablet?? Metoprolol Extended Release Oral Tablet?? Atrial Fibrillation?? Discharge Instructions for Atrial Fibrillation?? Atrial Fibrillation?? Heart Disease Education?? Follow-Up Appointments Added Follow Up ?Time Frame ?Comments Merlene BYRNE, Cortez Kendall Post Discharge Care Diet: Cardiac diet Condition: stable Prognosis: Fair Discharge ?07/01/22 9:04:00 EST Home Health Face to Face ^HomeHealthFTF Results Discharge Labs BLOOD COUNT & DIFF WBC 6.8 k/mm3 ()?? 07/01/2022 04:49 RBC 4.24 m/mm3 (Low)?? 07/01/2022 04:49 Hgb 12.3 Gm/dL (Low)?? 07/01/2022 04:49 Hct 38.2 % (Low)?? 07/01/2022 04:49 MCV 90.1 femtoliters ()?? 07/01/2022 04:49 MCH 29.0 pg ()?? 07/01/2022 04:49 MCHC 32.2 g/dL (Low)?? 07/01/2022 04:49 Platelet Count 191 k/mm3 ()?? 07/01/2022 04:49 RDW-SD 43.6 femtoliters ()?? 07/01/2022 04:49 MPV 10.4 femtoliters ()?? 07/01/2022 04:49 Nucleated RBC (Automated) 0.0 #/100 WBC'S ()?? 07/01/2022 04:49 Abs. NRBC 0.0 k/mm3 ()?? 07/01/2022 04:49 Abs. Neut 5.6 k/mm3 ()?? 06/22/2022 11:21 Abs. Lymph 0.7 k/mm3 (Low)?? 06/22/2022 11:21 Abs. Iberia 0.8 k/mm3 ()?? 06/22/2022 11:21 Abs. Eo 0.1 k/mm3 ()?? 06/22/2022 11:21 Abs. Baso 0.0 k/mm3 ()?? 06/22/2022 11:21 Neut % 77.3 % (High)?? 06/22/2022 11:21 Lymph % 9.4 % (Low)?? 06/22/2022 11:21 [place] % 10.8 % (High)?? 06/22/2022 11:21 Eos % 1.5 % ()?? 06/22/2022 11:21 Baso % 0.4 % ()?? 06/22/2022 11:21 Imm Gran 0.6 % ()?? 06/22/2022 11:21 Abs. Imm Gran 0.0 k/mm3 ()?? 06/22/2022 11:21 ?? CARDIAC Troponin T Quant <0.01 ng/mL ()?? 06/22/2022 23:11 Nt-Probnp 964 pg/mL (High)?? 06/22/2022 11:21 ?? CHEM GENERAL Sodium 143 mmol/L ()?? 07/01/2022 04:49 Potassium 3.8 mmol/L ()?? 07/01/2022 04:49 Chloride 105 mmol/L ()?? 07/01/2022 04:49 Bicarbonate Level 31 mmol/L (High)?? 07/01/2022 04:49 Anion Gap 7 ()?? 07/01/2022 04:49 Glucose Level 102 mg/dL (High)?? 07/01/2022 04:49 Hemoglobin A1C (Monitoring) 5.3 % ()?? 06/23/2022 04:17 BUN 23 mg/dL ()?? 07/01/2022 04:49 Creatinine-Blood 0.9 mg/dL ()?? 07/01/2022 04:49 Estimated GFR Creatinine 96 ML/MIN/1.73 M2 ()?? 07/01/2022 04:49 Calcium 9.0 mg/dL ()?? 07/01/2022 04:49 Phosphorus 3.5 mg/dL ()?? 06/23/2022 04:17 Magnesium 2.2 mg/dL ()?? 06/28/2022 04:23 ? ENDOCRINE/TUMOR MARKER TSH 1.77 uIU/mL ()?? 06/22/2022 11:21 ? HEME OTHER Hold Lavender Top SPECIMEN DISCARDED AFTER 24 HOURS. ()?? 06/24/2022 01:08 Hold Blue Top SPECIMEN DISCARDED AFTER 4 HOURS. ()?? 06/22/2022 11:21 ?? URINE OTHER Sodium, Urine Random 101 mmol/L ()?? 06/25/2022 10:43 ? VIROLOGY COVID-19 PCR Specimen Source NASAL ()?? 06/29/2022 06:00 COVID-19 PCR Result NEGATIVE ()?? 06/29/2022 06:00 COVID-19 POC Result NEGATIVE ()?? 06/22/2022 10:29 ? Microbiology ?? COVID-19 (2018 Novel Coronavirus) PCR?? Collected?? Source: Nasal Body Site: Nose Collected Dt/Tm: 06/25/2022 06:28 Last Updated Dt/Tm: 06/25/2022 05:01 COVID-19 (2018 Novel Coronavirus) PCR?? Completed?? Source: Nasal Body Site: Nose Collected Dt/Tm: 06/29/2022 06:03 Last Updated Dt/Tm: 06/30/2022 04:27 ? 35_ minutes spent on discharge * Usha Byers: PERFORM Event Display: Patient Education/Instruction Authored Date: [id number] Inpatient Adult Discharge Instructions [place] [id number] Name: LEIDY NGUYEN : 1960 Visit: 06/22/2022 15:17:00 Current Date: 07/01/2022 09:51 Account: [id number] Inpatient Adult Discharge Instructions We would like to thank you for allowing us to assist you with your healthcare needs. The following includes patient education materials and information regarding your injury/illness. Our entire staffstrives to provide an excellent experience for our patients and their families. PLEASE ENSURE YOU FOLLOW-UP PER THE INSTRUCTIONS BELOW! ?? YOUR OPINION IS IMPORTANT TO US! Please complete the survey you may receive by mail or email. Your feedback will be used to make improvements to the healthcare experiences of our patients and their families. Surveys are administered by [employer] ?? If further treatment with your primary care physician or another doctor is recommended, it is important for you to keep the appointment. Call your primary care physician or return to the Emergency Department immediately if your condition worsens, fails to improve, or new symptoms develop. If you need to find a doctor, you can call [facility] for a referral at [phone] or toll free at [phone] or log in to [email or web address].. ?? You can view and manage your care through the patient portal or by using a health care nidia of your choosing. [employer] is a website that allows you to securely view your medical information including your hospital discharge summary, office visit summaries, medications and follow-up visits. You can also request appointments, renew medications, and request access to your medical information using a health care nidia of your choosing, or just ask a question. You can enroll at [email or web address] or register during your next office visit. You have been discharged from [facility], Patient Care Unit: M5. If you have any questions regarding these instructions after you leave, please call us and we will be happy to assist you. [facility] Your Care Team Attending Physician Justyn Pat MD, Joe Jones Consulting Providers Melina BYRNE, Cristobal Hilton Discharging Providers Justyn Pat MD, Joe Jones Reason for Admission Palpitations Your Diagnosis New onset a-fib Hypertension Obesity Tests Performed Below is a partial list of the tests performed during your hospitalization. You may have had other tests and procedures not included in this list. Please discuss all test results with your provider. B Type Natriuretic Peptide Basic Metabolic Panel BUN Calcium Level CBC CBC w/ Differential COVID-19 (2019 Novel Coronavirus) PCR COVID-19 RNA POC Creatinine Electrolytes Glucose Level HEMOGLOBIN A1C Hold Blue Top Tube HOLD LAVENDER TUBE Magnesium Level Mg Level Phosphorus Level Sodium Urine Troponin T Quant TSH XR Chest 2 Views Frontal and Lat Primary Care Provider Cortez Blunt MD Advance Directive Health Care Proxy on File Yes - Health Care Proxy No qualifying data available. Discharge Vitals Temperature: 97.8 DegF Height: 178 cm Pulse Rate: 57 bpm Weight: 150.2 kg Respiratory Rate: 18 br/min Body Mass Index:??47.41 kg/m2??Critical Systolic Blood Pressure:??141 mm Hg??High Body surface area: 2.73 Diastolic Blood Pressure: 80 mm Hg ?? Oxygen Saturation: 95 % ?? Studies Pending All tests and labs ordered during this hospital stay have been completed unless listed below. Please discuss all pending results with your provider listed above in these instructions. ?? Add On Lab Order (Lab Add On Order) COVID-19 (2019 Novel Coronavirus) PCR What to do next Instructions From Your Doctor Discharge Orders Diet:??Cardiac diet Condition:??stable Prognosis:??Fair Instructions from your Care Team 2 gm sodium cardiac diet education provided, refer to nutrition handouts given, for diet-related questions [phone] Scheduled Follow-Up Appointments Wednesday 7:45 AM EST ?? With: Kassandra Valdovinos NP Where: [facility] [address] [place] [address]- 2021 9:05 AM EST ?? With: Cortez Blunt MD Where: [address] [address]- You Need to Schedule the Following Appointments Follow Up with??Cortez Blunt MD When?? Where: ?? Discharge Medications LEIDY NGUYEN :1960 Visit Date:06/22/2022 Medications: Please continue your medications until treatment is completed or stopped by your provider. Medications not listed below should be discontinued. Discuss any questions related to medications with your provider. What How Much When Instructions Next Dose New Flecainide (flecainide 50 mg oral tablet) 1 tab(s) Oral Every 12 hours Refills: 1 Pickup at [facility] New Furosemide (Lasix 40 mg oral tablet) 1 tab(s) Oral Daily Refills: 1 Pickup at [facility]/pharmacy #20[facility] New Metoprolol (metoprolol 50 mg oral tablet, extended release) 1 tab(s) Oral Daily Refills: 2 Pickup at [facility] Changed apixaban (Eliquis 5 mg oral tablet) 1 tab(s) Oral Twice a day Pickup at [facility] Unchanged Aspirin (aspirin 81 mg oral tablet) 1 tab(s) Oral Daily Unchanged Doxazosin (doxazosin 4 mg oral tablet) 1 tab(s) Oral Daily Unchanged Gabapentin (gabapentin 100 mg oral capsule) 2 capsule Oral Daily at Bedtime Unchanged Omeprazole (omeprazole 20 mg oral enteric coated capsule) 1 capsule Oral Daily (buys OTC) ?? Unchanged tadalafil (Tadalafil (Eqv-Cialis) 20 mg oral tablet) 1 tab(s) Oral Daily as needed for NEEDED FOR ERECTILE DYSFUNCTION Pharmacy Information [id number]: [address], [place] [id number] [phone] ?? What How Much When Comments Stop Taking Amlodipine (amLODIPine 10 mg oral tablet) 1 tab(s) Oral Daily Stop Taking Carvedilol (carvedilol 3.125 mg oral tablet) 1 tab(s) Oral Twice a day Test Results Below is a partial list of the most recent Laboratory test results done prior to this discharge. You may have had other tests and procedures not included in this list. Please discuss all test resultswith your provider. B Type Natriuretic Peptide (06/22/2022) ???Nt-Probnp - 964 pg/mL Basic Metabolic Panel (07/01/2022) ???Sodium - 143 mmol/L???Potassium - 3.8 mmol/L???Chloride - 105 mmol/L???Bicarbonate Level - 31 mmol/L???Anion Gap - 7???Glucose Level - 102 mg/dL???BUN - 23 mg/dL???Creatinine-Blood - 0.9 mg/dL???Estimated GFR Creatinine - 96 ML/MIN/1.73 M2???Calcium - 9.0 mg/dL BUN (06/30/2022) ???BUN - 19 mg/dL Calcium Level (06/30/2022) ???Calcium - 9.5 mg/dL CBC (07/01/2022) ???WBC - 6.8 k/mm3???RBC - 4.24 m/mm3???Hgb - 12.3 Gm/dL???Hct - 38.2 %???MCV - 90.1 femtoliters???MCH - 29.0 pg???MCHC - 32.2 g/dL???Platelet Count - 191 k/mm3???RDW-SD - 43.6 femtoliters???MPV - 10.4 femtoliters???Nucleated RBC (Automated) - 0.0 #/100 WBC'S???Abs. NRBC - 0.0 k/mm3 CBC w/ Differential (06/22/2022) ???WBC - 7.2 k/mm3???RBC - 4.28 m/mm3???Hgb - 13.0 Gm/dL???Hct - 38.1 %???MCV - 89.0 femtoliters???MCH - 30.4 pg???MCHC - 34.1 g/dL???Platelet Count - 158 k/mm3???RDW-SD - 44.2 femtoliters???MPV - 11.0 femtoliters???Nucleated RBC (Automated) - 0.0 #/100 WBC'S???Abs. NRBC - 0.0 k/mm3???Abs. Neut - 5.6 k/mm3???Abs. Lymph - 0.7 k/mm3???Abs. Iberia - 0.8 k/mm3???Abs. Eo - 0.1 k/mm3???Abs. Baso - 0.0 k/mm3???Neut % - 77.3 %???Lymph % - 9.4 %???Iberia % - 10.8 %???Eos % - 1.5 %???Baso % - 0.4 %???Imm Gran - 0.6 %???Abs. Imm Gran - 0.0 k/mm3 COVID-19 (2019 Novel Coronavirus) PCR (06/29/2022) ???COVID-19 PCR Specimen Source - NASAL???COVID-19 PCR Result - NEGATIVE COVID-19 RNA POC (06/22/2022) ???COVID-19 POC Result - NEGATIVE Creatinine (06/30/2022) ???Creatinine-Blood - 0.9 mg/dL???Estimated GFR Creatinine - 98 ML/MIN/1.73 M2 Electrolytes (06/30/2022) ???Sodium - 144 mmol/L???Potassium - 3.7 mmol/L???Chloride - 103 mmol/L???Bicarbonate Level - 29 mmol/L???Anion Gap - 12 Glucose Level (06/30/2022) ???Glucose Level - 95 mg/dL HEMOGLOBIN A1C (06/23/2022) ???Hemoglobin A1C (Monitoring) - 5.3 % Hold Blue Top Tube (06/22/2022) ???Hold Blue Top - SPECIMEN DISCARDED AFTER 4 HOURS. HOLD LAVENDER TUBE (06/24/2022) ???Hold Lavender Top - SPECIMEN DISCARDED AFTER 24 HOURS. Magnesium Level (06/28/2022) ???Magnesium - 2.2 mg/dL Mg Level (06/25/2022) ???Magnesium - 2.0 mg/dL Phosphorus Level (06/23/2022) ???Phosphorus - 3.5 mg/dL Sodium Urine (06/25/2022) ???Sodium, Urine Random - 101 mmol/L Troponin T Quant (06/22/2022) ? ?Troponin T Quant - <0.01 ng/mL TSH (06/22/2022) ???TSH - 1.77 uIU/mL Allergies (NKA means No Known Allergies) lisinopril penicillins??(Rash) Problems Active Problems??(9) Benign essential hypertension?? Bilateral knee pain?? Diverticulosis?? Hemorrhoids?? Migraine?? Obesity?? JR (obstructive sleep apnea)?? Severe obesity?? Sleep related hypoventilation/hypoxemia in other disease?? Education Materials Below is the list of Educational Leaflet Providered with your Discharge Instructions. Flecainide Oral Tablet?? Furosemide Oral Tablet?? Apixaban Oral Tablet?? Metoprolol Extended Release Oral Tablet?? Atrial Fibrillation?? Discharge Instructions for Atrial Fibrillation?? Atrial Fibrillation?? Heart Disease Education?? Valuables and Belongings I fully understand and agree that [facility] accepts no responsibility for all my personal property including clothing, toilet articles, radios, jewelry, dentures, hearing aids, rings, money, or any other property that is in my possession or is brought to me after admission. I understand certain valuables may be placed in a hospital safe for a short period of time. I understand that the hospital is not liable for loss or damage due to accident, fire, or other natural occurrence while said property is in the safe. I accept full responsibility for any personal property that I keep with me, and will not hold the hospital responsible in case of loss or disappearance. I acknowledge that i have been encouraged to send valuables and belongings home. ?? Review of Valuable and Belonging List: With witness Date for Pt to Sign Valuables/Belongings: 06/23/22 00:30:00 ?? Other Discharge Information ? Pulmonary Rehab Status?? Pulmonary Rehab Discharge Status?? CPAP/BiPAP Mask Type: Full CPAP/BiPAP Mask Size: Large Respiratory Rate: 18 br/min ? Common Emergency Awareness Tips IS IT A STROKE? Act FAST and Check for these signs: FACE Does the face look uneven? ARM Does one arm drift down? SPEECH Does their speech sound strange? TIME Call at any sign of stroke ?? Heart Attack Signs Chest discomfort: Most heart attacks involve discomfort in the center of the chest and lasts more than a few minutes, or goes away and comes back. It can feel like uncomfortable pressure, squeezing, fullness or pain. Discomfort in upper body: Symptoms can include pain or discomfort in one or both arms, back, neck, jaw or stomach. Shortness of breath: With or without discomfort. Other signs: Breaking out in a cold sweat, nausea, or lightheaded. Remember, MINUTES DO MATTER. If you experience any of these heart attack warning signs, call to get immediate medical attention! ?? Smoking can increase your chances of developing chronic health problems and can cause harmful effects to other family members in your house. If you smoke, you are strongly encouraged to quit. Please call [facility] [employer] [facility] at [phone] or [phone] ([phone]) or log in to [email or web address] for referrals to smoking cessation programs. ?? The National Suicide Prevention Hotline is available 01/03 if you or someone you know needs to find a reason to keep living. By calling 6-357-115-brotips (2943) you'll be connected to a skilled, trained counselor at a crisis center in your area. INPATIENT DISCHARGE INSTRUCTIONS SIGNATURE PAGE WENDYLEIDY STARR Location:[facility] Registration Date and Time:06/22/2022 15:17 EST Primary Care Physician: Merlene BYRNE, Cortez Kendall, I LEIDY NGUYEN, have received the above patient education materials/instructions and have verbalized understanding. If ambulance or transport services are being used I further acknowledge being given a choice of service. ?? If you need to contact me, please call me at this number: . Patient/Insurance Sales Supervisor Name: Patient/Insurance Sales Supervisor Signature: Relationship to Patient: Witness Name/Signature: Date: * Justyn Pat MD, Joe Jones: PERFORM Event Display: Patient Education Leaflets Authored Date: [id number] Flecainide Oral Tablet ?? [id number] Flecainide Oral Tablet Brands: [employer] Uses This medicine is used for the following purposes: ??? irregular heart beat ??? prevent irregular heart beat ?? Instructions This medicine may be taken with or without food. It is very important that you take the medicine at about the same time every day. It will work bestif you do this. Store at room temperature away from heat, light, and moisture. Do not keep in the bathroom. It is important that you keep taking each dose of this medicine on time even if you are feeling well. If you forget to take a dose on time, take it as soon as you remember. If it is almost time for thenext dose, do not take the missed dose. Return to your normal dosing schedule. Do not take 2 doses of this medicine at one time. Drug interactions can change how medicines work or increase risk for side effects. Tell your healthcare providers about all medicines taken. Include prescription and tdot-acc-gitakdt medicines, vitamins, and herbal medicines. Speak with your doctor or pharmacist before starting or stopping any medicine. Tell your doctor if symptoms do not get better or if they get worse. Do not suddenly stop taking this medicine. Check with your doctor before stopping. Keep all appointments for medical exams and tests while on this medicine. Do not take the medicine more than twice during 24 hours. ?? Cautions Tell your doctor and pharmacist if you ever had an allergic reaction to a medicine. Some patients with weak hearts may have worsening of symptoms. If you notice difficulty breathing, weight gain, or swelling of your legs or ankles, let your doctor know right away. Some patients taking this medicine have experienced serious side effects. Please speak with your doctor to understand the risks and benefits associated with this medicine. Do not use the medication any more than instructed. Your ability to stay alert or to react quickly may be impaired by this medicine. Do not drive or operate machinery until you know how this medicine will affect you. Please check with your doctor before drinking alcohol while on this medicine. If you drink more than a few alcoholic beverages each day, ask your doctor whether you should be onthis medicine. Tell the doctor or pharmacist if you are , planning to be , or . If you have had a heart attack within the past 6 months, talk to your doctor before using this medicine. Do not share this medicine with anyone who has not been prescribed this medicine. Always refill this medicine before it runs out. ?? Side Effects The following is a list of some common side effects from this medicine. Please speak with your doctor about what you should do if you experience these or other side effects. ??? blurry vision ??? dizziness ??? lack of energy and tiredness ??? headaches ??? nausea ??? shakiness ??? weakness Call your doctor or get medical help right away if you notice any of these more serious side effects: ??? swelling of the legs, feet, and hands ??? fainting ??? fast or irregular heart beats ??? shortness of breath ??? unusual or unexplained tiredness or weakness A few people may have an allergic reaction to this medicine. Symptoms can include difficulty breathing, skin rash, itching, swelling, or severe dizziness. If you notice any of these symptoms, seek medical help quickly. ?? Extra Please speak with your doctor, nurse, or pharmacist if you have any questions about this medicine. ?? [email or web address] IMPORTANT NOTE: This document tells you briefly how to take your medicine, but it does not tell youall there is to know about it. Your doctor or pharmacist may give you other documents about your medicine. Please talk to them if you have any questions. Always follow their advice. There is a more complete description of this medicine available in Romansh. Scan this code on your smartphone or tablet or use the web address below. You can also ask your pharmacist for a printout. If you have any questions, please ask your pharmacist. The display and use of this drug information is subject to Terms of Use. Copyright(c) 2021 [employer]. ?? [employer]. All rights reserved. This information is not intended as a substitute for professional medical care. Always follow your healthcare professional's instructions. ?? * Justyn Pat MD, Joe Jones: PERFORM Event Display: Patient Education Leaflets Authored Date: Furosemide Oral Tablet ?? [id number] Furosemide Oral Tablet Brands: Lasix Uses This medicine is used for the following purposes: ??? high blood pressure ??? swelling ?? Instructions This medicine may be taken with or without food. It is very important that you take the medicine at about the same time every day. It will work bestif you do this. Keep the medicine at room temperature. Avoid heat and direct light. This medicine will make you urinate more. If you have difficulty passing urine, please tell your doctor. This medicine may cause you to become more sensitive to the sun. Use sunscreen or wear protective clothing when you are exposed to the sun. It is important that you keep taking each dose of this medicine on time even if you are feeling well. If you forget to take a dose on time, take it as soon as you remember. If it is almost time for thenext dose, do not take the missed dose. Return to your normal dosing schedule. Do not take 2 doses of this medicine at one time. Tell your doctor and pharmacist about all your medicines. Include prescription and srga-trh-gcggnmwkreyvswde, vitamins, and herbal medicines. Do not suddenly stop taking this medicine. Check with your doctor before stopping. It is very important that you follow your doctor's instructions for all blood tests. ?? Cautions Tell your doctor and pharmacist if you ever had an allergic reaction to a medicine. Some patients taking this medicine have experienced serious side effects. Please speak with your doctor to understand the risks and benefits associated with this medicine. Do not use the medication any more than instructed. This medicine may cause dizziness or fainting, especially after exercising or in hot weather. Be very careful when standing or sitting up quickly. Your ability to stay alert or to react quickly may be impaired by this medicine. Do not drive or operate machinery until you know how this medicine will affect you. Please check with your doctor before drinking alcohol while on this medicine. Tell the doctor or pharmacist if you are , planning to be , or . Do not start or stop any other medicines without first speaking to your doctor or pharmacist. Do not share this medicine with anyone who has not been prescribed this medicine. ?? Side Effects The following is a list of some common side effects from this medicine. Please speak with your doctor about what you should do if you experience these or other side effects. ??? constipation ??? dizziness ??? dry mouth ??? lack of energy and tiredness ??? headaches ??? high blood sugar ??? low blood pressure ??? liver problems ??? red, burning, or itchy skin ??? stomach upset or abdominal pain ??? increased risk of sunburn ??? increased urinary frequency ??? blurring or changes of vision If you have any of the following side effects, you may be getting too much medicine. Please contactyour doctor to let them know about these side effects. ??? confusion ??? drowsiness or sedation ??? fainting ??? numbness or tingling in hands and feet ??? irritability ??? muscle cramps ??? muscle pain or weakness ??? tight or rigid muscles ??? thirst ??? unsteadiness while walking ??? urinating less often ??? dark urine Call your doctor or get medical help right away if you notice any of these more serious side effects: ??? shallow, irregular breathing ??? changes in memory, mood, or thinking ??? ear problems (ringingin the ears, hearing loss) ??? fast or irregular heart beats ??? kidney problems ??? kidney stones ??? signs of liver damage (such as yellowing of eye or skin, dark urine, or unusual tiredness) ??? seizures ??? light colored stool ??? unusual or unexplained tiredness or weakness ??? severe or persistent vomiting A few people may have an allergic reaction to this medicine. Symptoms can include difficulty breathing, skin rash, itching, swelling, or severe dizziness. If you notice any of these symptoms, seek medical help quickly. ?? Extra Please speak with your doctor, nurse, or pharmacist if you have any questions about this medicine. ?? [email or web address] IMPORTANT NOTE: This document tells you briefly how to take your medicine, but it does not tell youall there is to know about it. Your doctor or pharmacist may give you other documents about your medicine. Please talk to them if you have any questions. Always follow their advice. There is a more complete description of this medicine available in Romansh. Scan this code on your smartphone or tablet or use the web address below. You can also ask your pharmacist for a printout. If you have any questions, please ask your pharmacist. The display and use of this drug information is subject to Terms of Use. Copyright(c) 2021 [employer]. ?? [employer]. All rights reserved. This information is not intended as a substitute for professional medical care. Always follow your healthcare professional's instructions. ?? * Justyn Pat MD, Joe Jones: PERFORM Event Display: Patient Education Leaflets Authored Date: [id number] Apixaban Oral Tablet ?? [id number] Apixaban Oral Tablet Brands: Eliquis Uses This medicine is used for the following purposes: ??? blood disorder ??? prevent blood clots ??? blood clot ?? Instructions This medicine may be taken with or without food. It is very important that you take the medicine at about the same time every day. It will work bestif you do this. Store at room temperature away from heat, light, and moisture. Do not keep in the bathroom. It is important that you keep taking each dose of this medicine on time even if you are feeling well. If you forget to take a dose on time, take it as soon as you remember. If it is almost time for thenext dose, do not take the missed dose. Return to your normal dosing schedule. Do not take 2 doses of this medicine at one time. Drug interactions can change how medicines work or increase risk for side effects. Tell your healthcare providers about all medicines taken. Include prescription and dyty-lly-gxdloxk medicines, vitamins, and herbal medicines. Speak with your doctor or pharmacist before starting or stopping any medicine. Do not suddenly stop taking this medicine. Check with your doctor before stopping. It is very important that you follow your doctor's instructions for all blood tests. ?? Cautions This medicine may cause serious bleeding problems in patients taking blood thinner medications. Follow your doctor's instructions carefully to monitor your blood lab tests if you are on blood thinners. Tell your doctor and pharmacist if you ever had an allergic reaction to a medicine. This medicine may cause serious bleeding from the stomach or bowels. Stop this medicine and call your doctor immediately if you see any signs of bleeding. Bleeding can cause pain in the stomach, vomiting up liquid that looks like coffee grounds, and red or dark tarry stools. There is an increased risk of bleeding while on this medicine, please tell your doctor or nurse if you notice any excessive bleeding or bruising. Do not use the medication any more than instructed. Speak with your doctor before taking any medicine with aspirin. Please check with your doctor before drinking alcohol while on this medicine. Tell the doctor or pharmacist if you are , planning to be , or . Do not breastfeed while on this medicine. This medicine can hurt a new baby in the womb. If you become while on this medicine, tell your doctor immediately. Your doctor may switch you to a different medicine. Do not take Maryse's wort while on this medicine. Call your doctor right away if you notice any unusual bleeding or bruising. Do not share this medicine with anyone who has not been prescribed this medicine. Some patients have serious side effects from this medicine. Ask your pharmacist to show you the information from the Food and Drug Administration (FDA) and discuss it with you. Always refill this medicine before it runs out. ?? Side Effects The following is a list of some common side effects from this medicine. Please speak with your doctor about what you should do if you experience these or other side effects. ??? increased risk of bleeding ??? nosebleeds Call your doctor or get medical help right away if you notice any of these more serious side effects: ??? bleeding or bruising ??? coughing up blood or vomit that looks like coffee grounds ??? fainting??? numbness or tingling in hands and feet ??? severe or persistent headache ??? sudden leg pain, swelling, warmth or redness ??? loss of movement anywhere on the body ??? shortness of breath ??? bloody or dark, tarry stools ??? symptoms of stroke (such as one-sided weakness, slurred speech, confusion) ??? difficulty swallowing ??? unusual or unexplained tiredness or weakness ??? blood in urine ??? blurring or changes of vision A few people may have an allergic reaction to this medicine. Symptoms can include difficulty breathing, skin rash, itching, swelling, or severe dizziness. If you notice any of these symptoms, seek medical help quickly. ?? Extra Please speak with your doctor, nurse, or pharmacist if you have any questions about this medicine. ?? [email or web address] IMPORTANT NOTE: This document tells you briefly how to take your medicine, but it does not tell youall there is to know about it. Your doctor or pharmacist may give you other documents about your medicine. Please talk to them if you have any questions. Always follow their advice. There is a more complete description of this medicine available in Romansh. Scan this code on your smartphone or tablet or use the web address below. You can also ask your pharmacist for a printout. If you have any questions, please ask your pharmacist. The display and use of this drug information is subject to Terms of Use. Copyright(c) 2021 [employer]. ?? [employer]. All rights reserved. This information is not intended as a substitute for professional medical care. Always follow your healthcare professional's instructions. ?? * Event Display: Cardiac Rhythm Strips Authored Date: * Event Display: Cardiac Rhythm Strips Authored Date: * Event Display: Cardiac Rhythm Strips Authored Date: * [facility] , CIS S: TRANSCRIBE Mina Crystal MD: SIGN Coy Carlos MD, V: VERIFY Event Display: Result: Authored Date: Chest 2 Views Frontal and Lat Hx of Present Illness: went to pcp wednesday for hip knee pain,found new onset afib, sent home; Reason: Chest Pain; COMPARISON: None. FINDINGS: LINES AND TUBES: None. LUNGS AND PLEURA: Mild cephalization of the pulmonary vessels with coarse interstitial markings. Trace bilateral pleural effusions. No pneumothorax. HEART, MEDIASTINUM AND SADIE: Heart is at the upper limits of normal for size. Normal mediastinal and hilar contour. BONES AND SOFT TISSUES: No acute abnormality. IMPRESSION: Coarse interstitial markings with trace bilateral pleural effusions, suggestive of pulmonary congestion. I have personally reviewed the images and I agree with this report. WSN: [id number] Ordering Physician: Ratna Combs Dictated By: Mina Crystal MD Dictated Date/Time: 06/22/22 1:22 pm Reviewed By: Coy Carlos MD, V Signed By: Coy Carlos MD, V Signed Date/Time: 06/22/22 1:27 pm Transcribed By: SHAYY Transcribed Date/Time: 06/22/22 1:19 pm Hospital Progress note * Justyn Pat MD, Joe Jones: PERFORM Event Display: Progress Note Hospital Authored Date: Patient: ??LEIDY NGUYEN ? Age:??61 Years?Sex:??Male?:??1960?? Subjective no overnight events Alert oriented*3 not in distress comfortable in RA underwent BENNIE with cardioversion today switched lasix to PO possible discharge tomorrow if he remains in sinus rhythm Review of Systems negative except as above Objective Vital Signs?? Temperature: 97.8 DegF (06/30/22 13:57:00) Temperature Route: Oral (06/30/22 13:57:00) Pulse Rate: 68 bpm (06/30/22 13:57:00) Respiratory Rate: 18 br/min (06/30/22 15:08:00) Systolic Blood Pressure: 125 mm Hg (06/30/22 13:57:00) Diastolic Blood Pressure: 78 mm Hg (06/30/22 13:57:00) Blood pressure sites: Arm, right (06/30/22 13:57:00) Mean Arterial Pressure: 94 mm Hg (06/30/22 13:57:00) Pulse Pressure: 47 mm Hg (06/30/22 13:57:00) Oxygen Saturation: 95 % (06/30/22 13:57:00) Liters per Minute: 4 L/min (06/30/22 10:16:00) Mode of Delivery (Oxygen): Room air (06/30/22 13:57:00) Early Warning Score: 4 (06/30/22 15:08:37) ? Pain Scores?? No qualifying data available. ? Physical Exam Constitutional: Alert, in no distress. Mental Status: Oriented to person, place and time. Head: Normocephalic. Neck: Supple, Full range of motion. Respiratory: Clear to auscultation. No wheezing, rales or rhonchi. Cardiovascular: S1 S2 regular. No murmurs, rubs or gallops. Gastrointestinal: Abdomen soft, non-tender, non-distended. Genitourinary: No costovertebral angle tenderness. Neurologic: . Moves all extremities spontaneously. Sensation intact bilaterally. Skin: No rashes or lesions. No petechiae or purpura.?? Musculoskeletal: LE edema+??lower Assessment/Plan Diagnoses Hypertension ??(I10) New onset a-fib ??(I48.91) Obesity ??(E66.9) ?? Assessment:? 61-year-old male with past medical history of obstructive sleep apnea on CPAP, hypertension, knee pain, hemorrhoids who was recently diagnosed with Atrial fibrillation came to the ED with complaints of shortness of breath, lightheadedness, dizziness. He is being managed for A. fib with RVR and decom pensated congestive heart failure. ?Atrial fibrillation with RVR ?He was diagnosed with Aguila. miley on Wednesday and started on Eliquis and Coreg ?EKG: Robb trent with RVR, normal QT intervals, no ST or T wave abnormalities ?Trop <0.01 x 4; BNP 964 ?SOB, slight cough, Slight fluid overload with bibasal crackles and LE edema on exam ?CXR:Coarse interstitial markings with trace bilateral pleural effusions, suggestive of pulmonary congestion. ?CHADVasc- 2 (for HTN and CHF) ?ECHO: Incomplete but grossly normal EF. ? Plan: ?Decreased Toprol to 50 mg daily ?Continue Eliquis ?Continue tele?Flecainide??50 mg BID ? Decompensated Congestive heart failure- Likely HFpEF (grossly normal EF) ?h/o worsening exertional sob, ?Bibasal crackles and LE edema on exam ?Trop <0.01 x 4; BNP 964 ?CXR:Coarse interstitial markings with trace bilateral pleural effusions, suggestive of pulmonary congestion. ? Plan ?Switch Lasix to PO 40 mg??daily ?Input output monitoring, daily weight ? Hypertension ?Metoprolol as above. ?Holding amlodipine and Coreg ? Obstructive sleep apnea on CPAP ?Morbid obesity ?CPAP ? Left knee pain ?Tylenol as needed ? Full code ?Cardiac diet ?DVT prophylaxis???Eliquis ?Family updated at bedside ? * Brittani Anguiano RN: PERFORM, SIGN, VERIFY Event Display: Progress Note Hospital Authored Date: Patient: LEIDY NGUYEN Age: 61 years Sex: Male : 1960 Associated Diagnoses: None Author: Brittani Anguiano RN Findings Problem Related to Alteration in Cardiac Function (new) : Alteration in Cardiac Function/new 06/30/2022 12:00 EST Alteration in Cardiac Status Related to Dysrhythmia, Heart failure Goals & Outcomes, Cardiac Status Pt will resume/maintain adequate hemodynamic status, Pt will resume/maintain adequate respiratory function, Pt will resume/maintain intact neuro function, Pt/caregiver will state understanding of diagnosis, Pt will convert to a stable rhythm, Pt will understand fluid restriction for Heart Failure Cardiac Interventions Implemented Assess/monitor cardiac status, Assess/monitor neuro status, Assess/monitor respiratory status, Prep pt for treatments & procedures BH Goals/Interventions, Cardiac Yes Cardiac, Problem Start 06/23/2022 14:03 Reviewed Plan with, Cardiac Status Patient Patient Progression, Cardiac Status Patient progressing according to plan . Narrative/Incidental Patient is a/o x 3, denies pain/discomfort this am - no chest pain or palpitations. Remains afib with HR 80s this am. All other VSS. 3+ edema to BLE - encouraged leg elevation when seated. IV lasix maintained and pt voiding via urinal for output monitoring. NPO for BENNIE with cardioversion today - education provided. Pt sent for procedure and returned SB/SR on tele with HR 50s-60s. No dizziness. Taking in po without issue - no swallowing difficulty. Pt and family updated on plan of care - flecainide administered. . Discharge Information Pulmonary Rehab Discharge : Pulmonary Rehab Discharge Status 06/30/2022 4:20 EST CPAP/BiPAP Mask Type Full CPAP/BiPAP Mask Size Large 06/30/2022 1:06 EST CPAP/BiPAP Mask Type Full CPAP/BiPAP Mask Size Large (Modified) 06/29/2022 3:34 EST CPAP/BiPAP Mask Type Full CPAP/BiPAP Mask Size Medium 06/28/2022 2:08 EST CPAP/BiPAP Mask Type Full CPAP/BiPAP Mask Size Large 06/26/2022 5:01 EST CPAP/BiPAP Mask Type Full CPAP/BiPAP Mask Size Large 06/26/2022 0:33 EST CPAP/BiPAP Mask Type Full CPAP/BiPAP Mask Size Large 06/25/2022 3:14 EST CPAP/BiPAP Mask Type Full CPAP/BiPAP Mask Size Large * Yevgeniy MCFARLANE, Scarlet Eckert: PERFORM, SIGN, VERIFY Event Display: Progress Note Hospital Authored Date: Patient: LEIDY NGUYEN Age: 61 years Sex: Male : 1960 Associated Diagnoses: None Author: Yevgeniy MCFARLANE, Scarlet Eckert Findings Evaluation (Pt awake and alert ox3. Pt denies c/p or sob. Monitor afib. Lungs clr. Pt has some swelling to lower ext. Pt voiding in good amts. Pt oob amb in julien steady gait noted. VSS will continue to monitor and report any changes.) Patient Care team information Care Team Personnel Name: Luis Varma RN Position: [facility] RN Member Role: Primary Care Nurse Name: Brittani Anguiano RN Position: [facility] RN Member Role: Primary Care Nurse Name: Cortez Blunt MD Position: [facility] Primary Care Physician Member Role: PCP Address: Address: [address] [place] [id number] Name: Edna Kelly RN Position: [facility] RN Member Role: Primary Care Nurse Name: Ron Babb RN Position: [facility] RN Member Role: Primary Care Nurse Name: Krystin BEVERLY Attending Position: [facility] ED Medicine MD Name: Talya Waters Position: [facility] ED TA TRACEY Name: Kailey Garcia RN Position: [facility] ED RN W/OE and Tasks Member Role: Patient Care Provider Name: Beronica Temple Position: [facility] ED OA Charge Member Role: ED Associate Care Team Related Persons Name: CECY NGUYEN Address: [address] [place] [address] Name: LEIDY NGUYEN JR Address: [address] [place] [address]
--- OUTSIDE RECORDS SUMMARY | 2024-05-03 22:12 | XMS_ITS | Continuity of Care Document ---
Author Organization [facility] Address [address] [place] [address]- Care Team Providers Care Pilot Supervisor Name Role Phone Merlene BYRNE, Cortez Kendall Primary Care Physician [phone] [place]counter [facility] [place] Date(s): 05/10/23 - 06/09/23 [facility] [address] [place] [address]- Attending Physician: Uri Chance Admitting Physician: AdmtrUri Referring Physician: AdmtrUri Allergies, Adverse Reactions, Alerts Substance Reaction Severity Status lisinopril cough Active penicillins Rash Active Immunizations Given and Recorded Vaccine Date Status Refusal Reason tetanus/diphtheria/pertussis, acel(Tdap) 1 12/20/17 Given 1Result Comment: [12/20/2017] [facility] [place] [id number] Medications Acetaminophen Daily, 0 Refills, Maintenance, 09/10/22 [...] Refills, Maintenance, 12/17/22 11:10:00 EDT, [facility], 176.1, cm, 10/21/22 11:09:00 EDT, Height, 146.1, kg, 08/29/22 15:57:00 EST, Dry Weight Start Date: 12/17/22 Status: Ordered Eliquis 5 mg oral tablet 1 tablet = 5 mg, By Mouth, 2 times a day, # 60 tablet, 5 Refills, Maintenance, 07/01/22 9:02:00 EST, Tablet, [facility]/pharmacy #[id number], Partial fill upon patient request if the prescription is for a schedule II opioid drug., 178, cm, 07/01/22 7:55:00 EST, He... Start Date: 07/01/22 Status: Ordered gabapentin 100 mg oral capsule 2, capsule, By Mouth, Daily at bedtime, # 180 capsule, Refills 1, Tot. Refills 1, Maintenance, 05/10/23 13:26:00 EDT, Route to Pharmacy Electronically, [facility]/pharmacy #[id number], 176.1, cm, 05/10/23 13:05:00 EDT, Height, 146.1, kg, 08/29/22 15:57:00 EST, Dry... Start Date: 05/10/23 Status: Ordered LORazepam 2 mg oral tablet 1 tablet = 2 mg, By Mouth, Once, one hour prior to procedure, # 1 tablet, 0 Refills, Soft Stop, 06/05/23 6:08:00 EDT, Tablet, [facility]/pharmacy #[id number], Partial fill upon patient request if the prescriptionis for a schedule II opioid drug., 176.1, cm, 05/13... Start Date: 06/05/23 Status: Ordered Metoprolol Succinate ER 100 mg oral tablet, extended release See Instructions, TAKE 1 TABLET BY MOUTH EVERY DAY, # 90 tablet, 1 Refills, Maintenance, 11/09/22 9:12:00 EDT, [facility]/pharmacy #[id number], 176.1, cm, 10/21/22 11:09:00 EDT, [...] EDT, Route to Pharmacy Electronically, [facility], 176.1, cm, 12/21/22 16:31:00 EDT, Height, 146.1, kg, 08/29/2314:57:00 EST, Dry Weight Start Date: 02/05/23 Status: Ordered Tadalafil (Eqv-Cialis) 20 mg oral tablet 1 tablet, By Mouth, Daily, PRN NEEDED FOR ERECTILE DYSFUNCTION, # 5 tablet, 1 Refills, Maintenance, 01/25/23 20:35:00 EDT, [facility], 176.1, cm, 12/21/22 16:31:00 EDT, Height, 146.1, [...] 3 Refills, Maintenance, 12/17/22 6:36:00 EDT, Tablet, [facility]/pharmacy #[id number], Partial fill upon patient request if the prescription is for a schedule II opioid drug., 176.1, cm, 10/21/22 11:09:00 ED... Start Date: 12/17/22 Stop Date: 12/12/23 Status: Ordered valsartan 160 mg oral tablet 160 mg, 1, tablet, By Mouth, 2 times a day, # 180 tablet, Refills 4, Tot. Refills 4, Maintenance, 10/19/22 13:24:00 EDT, Route to Pharmacy Electronically, [facility]/pharmacy #[id number], Partial fill upon patient request [...] Confirmed Active 1PER 03/02/14 COLONOSCOPY-DR ANABELLA CONCEPCION Procedures Procedure Date Related Diagnosis Body Site Status Polysomnogram 1 02/26/15 Completed Transthoracic echocardiography 2 01/22/15 Completed Colonoscopy 3 03/02/14 Completed [facility] PRESS[facility] 13 CM H2O, USING A LARGE GUNDERSON/PAYKEL SIMPLUS FULL FACE MASK AND HEATED HUMIDIFICATION. DX JR [facility]-NORMAL LEFT VENTRICULAR SIZE AND SYSTOLIC FX. MODERATE CONCENTRIC LEFT VENTRICULAR HYPERTROPHY. LEFT VENTRICULAR EJECTION FRACTION IS 60-65%. E-A REVERSAL CONSISTENT WITH MILD DIASTOLIC RELAXATION ABNORMALITY. 3Repeat in 10 years Social History Social History Type Response Smoking Status Never smoker entered on: 03/11/17 Sex Laboratory * Event Display: Non Lab Results Authored Date: [id number] Patient Care team information Care Team Personnel Name: Alanis Harris Position: [facility] RN Supv Member Role: Primary Care Nurse Name: Brittani Anguiano RN Position: [facility] RN Member Role: Primary Care Nurse Name: Cortez Blunt MD Position: [facility] Physician - Primary Care Member Role: PCP Address: Address: [address] [place] [id number]- Name: Ron Babb RN Position: S RN Member Role: Primary Care Nurse Care Team Related Persons Name: CECY NGUYEN Address: home [address] [place] [address] Name: LEIDY NGUYEN JR Address: home [address] [place] [address]
--- OUTSIDE RECORDS SUMMARY | 2024-05-03 22:12 | XMS_ITS | Continuity of Care Document ---
Author Organization [facility] Address [address] [place] [id number]- Care Team Providers Care Tool Engine Lathe Set Up Operator Name Role Phone Cortez Blunt MD Primary Care Physician [place] [facility] [place]): 07/28/22 - 08/04/22 [facility] [address] [place] [address]- Attending Physician: Kassandra Valdovinos NP Referring Physician: Cortez Blunt MD Allergies, Adverse Reactions, Alerts Substance Reaction Severity Status lisinopril Active penicillins Rash Active Immunizations Given and Recorded Vaccine Date Status Refusal Reason tetanus/diphtheria/pertussis, acel(Tdap) 1 12/20/17 Given Not Given Vaccine Date Status Refusal Reason Influenza Virus Vaccine (oldterm) 06/21/19 Not Giv en Patient Refuses 1Result Comment: [12/20/2017] [facility] 23796-585-61 Medications aspirin 81 mg oral tablet 1 [...] 07/28/22 10:21:00 EST, Route to Pharmacy Electronically, [facility]/pharmacy #[id number], Partial fill upon patientrequest if the prescription is for a schedule II op... Start Date: 07/28/22 Stop Date: 01/24/23 Status: Ordered gabapentin 100 mg oral capsule 2, capsule, By Mouth, Daily at bedtime, # 60 capsule, Refills 2, Maintenance, 06/18/22 11:52:00 EST, Route to Pharmacy Electronically, [facility], 176.4, cm, 05/15/22 11:35:00 EDT, Height Start Date: 06/18/22 Status: Ordered Lasix 40 mg oral tablet 40 mg, 1, tablet, By Mouth, Daily, # 30 tablet, Refills 5, Tot. Refills 5, Maintenance, 07/28/22 10:21:00 EST, Route to Pharmacy Electronically, [facility]/pharmacy #[id number], Partial fill upon patient request if the prescription is for a schedule II opioid drug... Start Date: 07/28/22 Stop Date: 01/24/23 Status: Ordered metoprolol 100 mg oral tablet, extended release 100 mg, 1, tablet, By Mouth, Daily, # 30 tablet, Refills 5, Tot. Refills 5, Maintenance, 07/28/22 10:22:00 EST, Route to Pharmacy Electronically, [facility]/pharmacy #[id number], Partial fill upon patient requestif [...] Refills, Maintenance, 04/12/22 10:29:00 EDT, [facility], 176.4, cm, 02/02/22 11:18:00 EDT, Height Start [...] Most recent to oldest [Reference Range]: 1 Height 178 cm (07/28/22 7:48 AM) Weight 147.7 kg (07/28/22 7:48 AM) Oxygen Saturation [94-100 %] 97 % (07/28/22 7:48 AM) Pulse Rate [55-90 bpm] 104 bpm *H* (07/28/22 7:48 AM) Body Mass Index [18.5-24.99 kg/m2] 46.62 kg/m2 *>HHI* (07/28/22 7:48 AM) Blood Pressure [90-138/55-84 mm Hg] 156/ 98mm Hg *H* (07/28/22 7:48 AM) Blood pressure sites Arm, right (07/28/22 7:48 AM) Social History Social History Type Response Smoking Status Never smoker entered on: 03/11/17 Sex EKG study * Event Display: ECG 12-Lead Authored Date: Please click on pdf link to open report * Event Display: ECG 12-Lead Authored Date: Ventricular Rate: 115 BPM Atrial Rate: 264 BPM QRS Duration: 92 ms Q-T Interval: 354 ms QTC Calculation(Bazett): 489 ms R [place]: 2 degrees T [place]: -75 degrees Atrial flutter with variable A-V block Nonspecific ST and T wave abnormality Abnormal ECG When compared with ECG of 30-JUN-2022 10:15, Atrial flutter has replaced Sinus rhythm Vent. rate has increased BY [address] now depressed in Inferior leads Nonspecific T wave abnormality now evident in Lateral leads Confirmed by NINO GLORIA MD ([id number]) on 07/29/2022 2:52:43 PM [place]: NINO GLORIA MD Cardiology Outpatient Note * Kassandra Valdovinos NP: PERFORM, MODIFY Event Display: Cardiology Note Office Authored Date: Patient: ??LEIDY NGUYEN ? Age:??61 Years?Sex:??Male?:??1960?? Indication for Consult inpatient follow up History of Present Illness/Interval History Leidy is a 61-year-old gentleman with PMH significant for JR on CPAP, HTN, obesity??who was recently admitted??a month ago with new??A. fib??and CHF??with preserved??EF. He was cardioverted on 06/30 and discharged 07/01 on flecainide. He presents today for inpatient follow up. He endorses doing well. He has no cardiac complaints. He denies CP, SOB, dizziness, palpitations, edema. No orthopnea,PND. He does note a headache since discharge, every day except maybe 3 since then. He notes presenting to pharmacy to refill his eliquis and told it was going to be $300. He has walked around the [employer] shopping but has not returned to his walks. He would like to resume his walks and swimming laps. Review of Systems Pertinent??positives per HPI Physical Exam Vitals & Measurements AK:??104?? BP:??156/98?? SpO2:??97%?? HT:??178??cm?? WT:??147.7??kg?? BMI:??46.62?? Weight lb/oz: 325 lb 10 oz General: Alert, sitting in chair comfortably, in NAD.??Ambulated independently,??steady??gait. Mental: Oriented x3. Appropriate affect. Converses easily Respiratory:??CTA. Nonlabored. Cardiovascular:??RRR. S1/S2. No M/R/G.??trace BL ankle??edema. No JVD. Gastrointestinal: Abdomen soft, non-tender, non-distended. Active bowel sounds. Neuro: Grossly intact. Moves all extremities spontaneously. Skin: [place], warm. CDI. Assessment/Plan Afib/Aflutter pt cardioverted and discharged in SR. was discharged on flecainide, metoprolol, and apixaban. pt remains on all. We discussed eliquis cost. he will call insurance to see if any of the DOAC are covered, if not, we will start coumadin, discussed monitoring with pt. they will call me today so I can send in prescription. pt in rapid aflutter today. looked back, not sure when he converted, he was in afib during echo a week ago. he is asymptomatic at this time. I discussed repeating cardioversion on the flecainide. pt in agreement. will refer to EP ?? HTN remains elevated ?? HFpEF - asymptomatic at this time. some mild ankle edema. pt endorses watching his sodium intake ?? Plan: continue apixaban until transition to cheaper alternative continue flecainide increase metoprolol to 100 mg daily DCCV refer to EP Allergies lisinopril penicillins??(Rash) Home Medications aspirin 81 mg oral tablet, 81 mg= 1 tablet, By Mouth, Daily doxazosin 4 mg oral tablet, 1 tablet, By Mouth, Daily, 1 refills Eliquis 5 mg oral tablet, 5 mg= 1 tablet, By Mouth, 2 times a day, 5 refills flecainide 50 mg oral tablet, 50 mg= 1 tablet, By Mouth, Every 12 hours, 5 refills gabapentin 100 mg oral capsule, 2 capsule, By Mouth, Daily at bedtime Lasix 40 mg oral tablet, 40 mg= 1 tablet, By Mouth, Daily, 5 refills metoprolol 100 mg oral tablet, extended release, 100 mg= 1 tablet, By Mouth, Daily, 5 refills omeprazole 20 mg oral enteric coated capsule, 20 mg= 1 capsule, By Mouth, Daily, (buys OTC) Tadalafil (Eqv-Cialis) 20 mg oral tablet, 1 tablet, By Mouth, Daily, PRN Lab Results Cardiology Labs WBC: 6.8 k/mm3 (07/01/22) RBC:??4.24 m/mm3??Low (07/01/22) Hgb:??12.3 Gm/dL??Low (07/01/22) Hct:??38.2 %??Low (07/01/22) MCV: 90.1 femtoliters (07/01/22) MCH: 29 pg (07/01/22) MCHC:??32.2 g/dL??Low (07/01/22) Platelet Count: 191 k/mm3 (07/01/22) RDW-SD: 43.6 femtoliters (07/01/22) Nucleated RBC (Automated): 0 #/100 WBC'S (07/01/22) Abs. Neut: 5.6 k/mm3 (06/22/22) Abs. Lymph:??0.7 k/mm3??Low (06/22/22) Abs. [place]: 0.8 k/mm3 (06/22/22) Abs. Eo: 0.1 k/mm3 (06/22/22) Abs. Baso: 0 k/mm3 (06/22/22) Neut %:??77.3 %??High (06/22/22) [place] %:??10.8 %??High (06/22/22) Eos %: 1.5 % (06/22/22) Baso %: 0.4 % (06/22/22) Imm Gran: 0.6 % (06/22/22) Abs. Imm Gran: 0 k/mm3 (06/22/22) Sodium: 142 mmol/L (07/06/22) Potassium: 4 mmol/L (07/06/22) Chloride: 104 mmol/L (07/06/22) Bicarbonate Level: 28 mmol/L (07/06/22) Glucose Level:??108 mg/dL??High (07/06/22) Hemoglobin A1C (Monitoring): 5.3 % (06/23/22) BUN: 14 mg/dL (07/06/22) Creatinine-Blood: 0.8 mg/dL (07/06/22) Calcium: 9.2 mg/dL (07/06/22) Protein, Total:??5.8 Gm/dL??Low (06/19/22) Albumin: 4.2 Gm/dL (06/19/22) Alkaline Phosphatase: 98 units/L (06/19/22) AST (SGOT): 16 units/L (06/19/22) ALT (SGPT): 12 units/L (06/19/22) Bilirubin, Total: 0.7 mg/dL (06/19/22) CK, Total: 186 units/L (06/19/22) CK MB Confirmation - Quant: 5.2 ng/mL (06/19/22) Troponin T Quant: <0.01 (06/22/22) Nt-Probnp:??964 pg/mL??High (06/22/22) Cholesterol: 163 mg/dL (02/20/22) Triglycerides:??214 mg/dL??High (02/20/22) HDL Cholesterol:??36 mg/dL??Low (02/20/22) LDL Cholesterol: 84 mg/dL (02/20/22) Non HDL Cholesterol: 127 mg/dL (02/20/22) TSH: 1.77 uIU/mL (06/22/22) Diagnostic Impression ECG ECG 12-Lead ?? 10:15:41 Please click on pdf link to open report ?? Signed By: Sam BYRNE, [facility] T Echo Echocardiogram - Complete ?? 08:23:59 Summary The left ventricular size is normal. The left ventricular wall thickness is mildly increased. The LV systolic function is normal . The left ventricular ejection fraction is 55-60 %. The left atrial size is at the upper limit of normal. The right ventricular size and function appears grossly normal. No color flow Doppler assessment performed. ?? Comparison Comparison is made to the study of June 23, 2022. LV systolic function has improved. ?? Signature ?? Signed By: Chidi Walters MD BENNIE Trans-esophageal Echocardiogram ?? 06/30/22 09:38:43 Summary The left ventricular size is normal for BSA. The LV systolic function is severely reduced . The left ventricular ejection fraction is 35-40 %. There is no thrombus in the left atrial appendage. Left atrial appendage function is mildly reduced . The interatrial septum appears intact. ?? The mitral valve opening is normal. There is moderate mitral regurgitation mostly from the lateral commissure. Real time (live) 3D imaging reveals normal mitral valve leaflet structure and function. ?? The right ventricle is mildly dilated. Right ventricular systolic function is mildly to moderately reduced. ?? The inferior vena cava is moderately dilated with poor inspiratory collapse consistent with elevated right atrial pressures. ?? Impressions No left atrial appendage thrombus ?? Recommendation Proceed with cardioversion ?? Comparison No prior study available for comparison. ?? Signature ?? Signed By: Cristobal Summers MD Problem List/Past Medical History Ongoing Benign essential hypertension Bilateral knee pain Diverticulosis Hemorrhoids Migraine Obesity JR (obstructive sleep apnea) Severe obesity Sleep related hypoventilation/hypoxemia in other disease Historical No qualifying data Procedure/Surgical History Polysomnogram: 02/26/15 Transthoracic echocardiography: 01/22/15 Colonoscopy: 03/02/14 Arthroscopy Social History Alcohol Use: Current. Other: [employer] only at [employer] 03/11/2017 Employment/School Status: Employed. Other: [employer] and [employer]., 03/11/2017 Exercise Self assessment: Poor condition. Regular exercise: No., 03/11/2017 Home/Environment Living situation: Home/Independent. Lives with: Spouse., 03/11/2017 Nutrition/Health Diet: Regular. Caffeine intake amount: 20 oz cup 2-3 a day. Feels highly stressed: Yes., 03/11/2017 Sexual Sexually involved in last 6 months: Yes. Sexual orientation: Heterosexual. Gender identity: Male. Preferred pronoun: He/him., 03/14/2017 Substance Abuse Use: Never., 03/11/2017 Tobacco Never smoker, 03/11/2017 Family History Mother: Alcoholism; Hypertension Son: Diabetes mellitus type I Patient Care team information Care Team Personnel Name: Luis Varma RN Position: [facility] RN Member Role: Primary Care Nurse Name: Brittani Anguiano RN Position: S RN Member Role: Primary Care Nurse Name: Cortez Blunt MD Position: [facility] Primary Care Physician Member Role: PCP Address: Address: [address] [place] [id number] Name: Edna Kelly RN Position: S RN Member Role: Primary Care Nurse Name: Ron Babb RN Position: [facility] RN Member Role: Primary Care Nurse Care Team Related Persons Name: CECY NGUYEN Address: home [address] [place] [address] Name: LEIDY NGUYEN JR Address: [address] [place] [address]
--- OUTSIDE RECORDS SUMMARY | 2024-05-03 22:12 | XMS_ITS | Continuity of Care Document ---
Author Organization [facility] lt Address [address] [place] [address]- Care Team Providers Care Vascular Physician Name Role Phone Cortez Blunt MD Primary Care Physician [id number] Date(s): 12/25/20 - 01/01/21 [facility] [address] [place] [address]- Attending Physician: Cortez Blunt MD Allergies, Adverse Reactions, Alerts Substance Reaction Severity Status lisinopril Active penicillins Rash Active Immunizations Given and Recorded Vaccine Date Status Refusal Reason tetanus/diphtheria/pertussis, acel(Tdap) 1 12/20/17 Given Not Given Vaccine Date Status Refusal Reason Influenza Virus Vaccine (oldterm) 06/21/19 Not Giv en Patient Refuses 1Result Comment: [12/20/2017] [facility] 67607-707-63 Medications amLODIPine 10 mg oral tablet 10 mg, 1, tablet, By Mouth, Daily, # 30 tablet, Refills 2, Tot. Refills 2, Soft Stop, 11/28/20 7:40:00 EDT, Route to Pharmacy Electronically, [facility]/pharmacy #[id number], 176.4, cm, 06/26/20 7:01:00 EST, Height Start Date: 11/28/20 Status: Ordered aspirin 81 mg oral tablet 1 tablet = 81 mg, By Mouth, Daily, # 30 tablet, 0 Refills, Maintenance, 03/11/17 15:49:45, Tablet Start Date: 03/11/17 Status: Ordered Cialis 20 mg oral tablet 1 tablet = 20 mg, By Mouth, Daily, PRN as needed for erectile dysfunction, # 5 tablet, 5 Refills, Maintenance, 12/25/20 8:45:00 EDT, Tablet, [facility]/pharmacy #[id number], Partial fill upon patient request if the prescription is for a schedule II opioid drug., 1... Start Date: 12/25/20 Status: Ordered doxazosin 4 mg oral tablet 1 tablet, By Mouth, Daily, # 30 tablet, 5 Refills, Maintenance, 12/31/20 17:04:00 EDT, [facility], 176.4, cm, 12/25/20 7:05:00 EDT, Height Start Date: 12/31/20 Status: Ordered gabapentin 100 mg oral capsule 100 mg, 1, capsule, By Mouth, Daily at bedtime, # 30 capsule, Refills 2, Tot. Refills 2, Maintenance, 12/25/20 8:43:00 EDT, Route to Pharmacy Electronically, [facility]/pharmacy #[id number], Partial fill upon patient request if the prescription is for a schedule I... Start Date: 12/25/20 Status: Ordered irbesartan 150 mg oral tablet 1 tablet, By Mouth, Daily, # 30 tablet, 5 Refills, Maintenance, 06/26/20 7:57:00 EST, [facility]/pharmacy #[id number], 176.4, cm, 06/26/20 7:01:00 EST, Height Start Date: 06/26/20 Status: Ordered Problem List Condition Effective Dates Status Health Status Inform ant Benign essential hypertension(Confirmed) Active Sleep related hypoventilation/hypoxemia in other disease(Confirmed) Active Diverticulosis(Confirmed) 1 Active Hemorrhoids(Confirmed) Active Bilateral knee pain(Confirmed) Active Migraine(Confirmed) Active Obesity(Confirmed) Active JR (obstructive sleep apnea)(Confirmed) Active 1PER 03/02/14 COLONOSCOPY-DR ANABELLA CONCEPCION Vital Signs Most recent to oldest [Reference Range]: 1 Height 176.4 cm (12/25/20 7:05 AM) Weight 154.5 kg (12/25/20 7:05 AM) Oxygen Saturation [94-100 %] 97 % (12/25/20 7:05 AM) Pulse Rate [55-90 bpm] 80 bpm (12/25/20 7:05 AM) Body Mass Index [18.5-24.99] 49.65 *>HHI* (12/25/20 7:05 AM) Blood Pressure [90-138/55-84 mm Hg] 130/ 88mm Hg (12/25/20 7:05 AM) Temperature [96.8-100.4 DegF] 98.5 DegF (12/25/20 7:05 AM) Mode of Delivery (Oxygen) Room air (12/25/20 7:05 AM) Blood pressure sites Arm, right (12/25/20 7:05 AM) Temperature Route Oral (12/25/20 7:05 AM) Weight Obtained Via Standing scale (12/25/20 7:05 AM) Social History Social History Type Response Smoking Status Never smoker entered on: 03/11/17 Sex
--- OUTSIDE RECORDS SUMMARY | 2024-05-03 22:12 | XMS_ITS | Continuity of Care Document ---
Author Organization [facility] Address [address] [place] [address]- Care Team Providers Care Ui Programmer Name Role Phone Merlene BYRNE, Cortez Kendall Primary Care Physician Encounter [facility] [place] Date(s): 10/21/22 - 11/20/22 [facility] Adult [address] [place] [address]- Attending Physician: Admtr, All8 Admitting Physician: Admtr, Ar8 Referring Physician: Admtr, Ar8 Allergies, Adverse Reactions, Alerts Substance Reaction Severity Status lisinopril Active penicillins Rash Active Immunizations Given and Recorded Vaccine Date Status Refusal Reason tetanus/diphtheria/pertussis, acel(Tdap) 1 12/20/17 Given Not Given Vaccine Date Status Refusal Reason Influenza Virus Vaccine (oldterm) 06/21/19 Not Giv en Patient Refuses 1Result Comment: [12/20/2017] [facility] [id number] Medications Acetaminophen Daily, 0 Refills, Maintenance, 09/10/22 8:02:00 EST, Partial fill upon patient request if the prescription is for a schedule II opioid drug. Start Date: 09/10/22 Status: Ordered amiodarone 200 mg oral tablet 200 mg, 1, tablet, By Mouth, Daily, # 90 tablet, Refills 0, Tot. Refills 0, Maintenance, 10/06/22 9:50:00 EST, Route to Pharmacy Electronically, [facility]/pharmacy #2612, Partial fill upon patient request if the prescription is for a schedule II opioid drug... Start Date: 10/06/22 Stop Date: 01/04/23 Status: Ordered amLODIPine 10 mg oral tablet 1 tablet, By Mouth, Daily, # 90 tablet, 3 Refills, Maintenance, 09/29/22 6:28:00 EST, [facility] 22147, 177.8, cm, 09/10/22 8:00:00 EST, Height, 146.1, [...] 0 Refills, Maintenance, 10/06/22 9:48:00 EST, Tablet, [facility]/pharmacy #[id number], Partial fill upon patient request if the prescription is for a schedule II opioid drug., 177.8, cm, 09/10/22 8:00:00 EST, Height,... Start Date: 10/06/22 Status: Ordered doxazosin 4 mg oral tablet 1 tablet, By Mouth, Daily, # 90 tablet, 1 Refills, Maintenance, 07/05/22 16:17:00 EST, [facility]/pharmacy#[id number], 178, cm, 07/01/22 7:55:00 EST, Height Start Date: 07/05/22 Status: Ordered Eliquis 5 mg oral tablet 1 tablet = 5 mg, By Mouth, 2 times a day, # 60 tablet, 5 Refills, Maintenance, 07/01/22 9:02:00 EST, Tablet, [facility]/pharmacy #[id number], Partial fill upon patient request if the prescription is for a schedule II opioid drug., 178, cm, 07/01/22 7:55:00 EST, He... Start Date: 07/01/22 Status: Ordered gabapentin 100 mg oral capsule 2, capsule, By Mouth, Daily at bedtime, # 60 capsule, Refills 2, Maintenance, 09/28/22 14:04:00 EST, Route to Pharmacy Electronically, [facility] 85172, 177.8, cm, 09/10/22 8:00:00 EST, Height, 146.1,kg, 08/29/22 15:57:00 EST, Dry Weight Start Date: 09/28/22 Status: Ordered Metoprolol Succinate ER 100 mg oral tablet, extended release See Instructions, TAKE 1 TABLET BY MOUTH EVERY DAY, # 90 tablet, 1 Refills, Maintenance, 11/09/22 9:12:00 EDT, [facility]/pharmacy #[id number], 176.1, cm, 10/21/22 11:09:00 EDT, Height, [...] 11/09/22 9:07:00 EDT, Route to Pharmacy Electronically, [facility]/pharmacy #[id number], 176.1, cm, 10/21/22 11:09:00 EDT, Height, 146.1, kg, 08/29/22 15:57:00 EST, Dry Weight Start Date: 11/09/22 Status: Ordered Tadalafil (Eqv-Cialis) 20 mg oral tablet 1 tablet, By Mouth, Daily, PRN NEEDED FOR ERECTILE DYSFUNCTION, # 5 tablet, 2 Refills, Maintenance, 08/11/22 9:25:00 EST, [facility], 178, cm, 08/07/22 15:14:00 EST, Height, 147, [...] 2 times a day, # 180 tablet, 0 Refills, Maintenance, 10/06/22 9:48:00 EST, Tablet, [facility]/pharmacy #[id number], Partial fill upon patient request if the prescription is for a schedule II opioid drug., 177.8, cm, 09/10/22 8:00:00 EST... Start Date: 10/06/22 Stop Date: 01/04/23 Status: Ordered valsartan 160 mg oral tablet 160 mg, 1, tablet, By Mouth, 2 times a day, # 180 tablet, Refills 4, Tot. Refills 4, Maintenance, 10/19/22 13:24:00 EDT, Route to Pharmacy Electronically, [facility]/pharmacy #[id number], Partial fill upon patient [...] 2 01/22/15 Completed Colonoscopy 3 03/02/14 Completed 1SLE MEDICINE [facility]-CPAP AT PRESSURE OF 13 CM H2O, USING A LARGE GUNDERSON/PAYKEL SIMPLUS FULL FACE MASK AND HEATED HUMIDIFICATION. DX [facility] LEFT VENTRICULAR SIZE AND SYSTOLIC FX. MODERATE CONCENTRIC LEFT VENTRICULAR HYPERTROPHY. LEFT VENTRICULAR EJECTION FRACTION IS 60-65%. E-A REVERSAL CONSISTENT WITH MILD DIASTOLIC RELAXATION ABNORMALITY. 3Repeat in 10 years Social History Social History Type Response Smoking Status Never smoker entered on: 03/11/17 Sex Note * Event Display: Non BH Lab Results Authored Date: [id number] Patient Care team information Care Team Personnel Name: Lázaro Garcia RN Position: [facility] RN Member Role: Primary Care Nurse Name: Alanis Harris Position: [facility] RN Supv Member Role: Primary Care Nurse Name: Brittani Anguiano RN Position: [facility] SN RN Member Role: Primary Care Nurse Name: Cortez Blunt MD Position: [facility] Primary Care Physician Member Role: PCP Address: Address: [address] [place] [id number]- Name: Ron Babb RN Position: [facility] RN Member Role: Primary Care Nurse Care Team Related Persons Name: CECY NGUYEN Address: home [address] [place] [address] Name: LEIDY NGUYEN JR Address: home [address] [place] [address]
--- OUTSIDE RECORDS SUMMARY | 2024-05-03 22:12 | XMS_ITS | Continuity of Care Document ---
Author Organization [facility] Address [address] [place] [address]- Care Team Providers Care Learning And Development Specialist Name Role Phone Merlene BYRNE, Cortez Kendall Primary Care Physician Encounter [facility] [place] Date(s): 01/22/21 - 02/21/21 [facility] Adult [address] [place] [address]- Attending Physician: Uri Chance Admitting Physician: AdmtrUri Referring Physician: AdmtrUri Allergies, Adverse Reactions, Alerts Substance Reaction Severity Status lisinopril Active penicillins Rash Active Immunizations Given and Recorded Vaccine Date Status Refusal Reason tetanus/diphtheria/pertussis, acel(Tdap) 1 12/20/17 Given Not Given Vaccine Date Status Refusal Reason Influenza Virus Vaccine (oldterm) 06/21/19 Not Giv en Patient Refuses 1Result Comment: [12/20/2017] [facility] 35453-365-87 Medications amLODIPine 10 mg oral tablet 1 tablet, By Mouth, Daily, # 30 tablet, 5 Refills, Maintenance, 01/29/21 8:22:00 EDT, [facility], 176.4, cm, 12/25/20 7:05:00 EDT, Height Start [...] 5 Refills, Maintenance, 12/25/20 8:45:00 EDT, Tablet, [facility], Partial fill upon patient request if the prescription is for a schedule II opioid drug., 1... Start Date: 12/25/20 Status: Ordered doxazosin 4 mg oral tablet 1 tablet, By Mouth, Daily, # 30 tablet, 5 Refills, Maintenance, 12/31/20 17:04:00 EDT, [facility], 176.4, cm, 12/25/20 7:05:00 EDT, Height Start Date: 12/31/20 Status: Ordered gabapentin 100 mg oral capsule 100 mg, 1, capsule, By Mouth, Daily at bedtime, # 30 capsule, Refills 2, Tot. Refills 2, Maintenance, 12/25/20 8:43:00 EDT, Route to Pharmacy Electronically, [facility]/pharmacy #[id number], Partial fill upon patient request if the prescription is for a schedule I... Start Date: 12/25/20 Status: Ordered irbesartan 150 mg oral tablet 1 tablet, By Mouth, Daily, # 30 tablet, 5 Refills, Maintenance, 01/15/21 13:26:00 EDT, [facility]/pharmacy#2071, 176.4, cm, 12/25/20 7:05:00 EDT, Height Start Date: 01/15/21 Status: Ordered Problem List Condition Effective Dates Status Health Status Inform ant Benign essential hypertension(Confirmed) Active Sleep related hypoventilation/hypoxemia in other disease(Confirmed) Active Diverticulosis(Confirmed) 1 Active Hemorrhoids(Confirmed) Active Bilateral knee pain(Confirmed) Active Migraine(Confirmed) Active Obesity(Confirmed) Active JR (obstructive sleep apnea)(Confirmed) Active 1PER 03/02/14 [facility] Procedures Procedure Date Related Diagnosis Body Site Status Polysomnogram 1 02/26/15 Completed Transthoracic echocardiography 2 01/22/15 Completed Colonoscopy 3 03/02/14 Completed 1SLE MEDICINE [facility]-CPAP AT PRESSURE OF 13 CM H2O, USING A LARGE GUNDERSON/CruiseWiseKEL SIMPLUS FULL FACE MASK AND HEATED HUMIDIFICATION. DX [facility]NORM[facility] LEFT VENTRICULAR SIZE AND SYSTOLIC FX. MODERATE CONCENTRIC LEFT VENTRICULAR HYPERTROPHY. LEFT VENTRICULAR EJECTION FRACTION IS 60-65%. E-A REVERSAL CONSISTENT WITH MILD DIASTOLIC RELAXATION ABNORMALITY. 3Repeat in 10 years Social History Social History Type Response Smoking Status Never smoker entered on: 8/3/17 Sex
--- OUTSIDE RECORDS SUMMARY | 2024-05-03 22:12 | XMS_ITS | Continuity of Care Document ---
Author Organization [facility] Address [address] [place] [address]- Care Team Providers Care Cork Wirer Name Role Phone Cortez Blunt MD Primary Care Physician [phone] Encounter [facility] [place] Date(s): 08/12/22 - 09/11/22 [facility] [address] [place] [address]- Attending Physician: Uri Chance Admitting Physician: AdmtrUri Referring Physician: Admtr Ar8 Allergies, Adverse Reactions, Alerts Substance Reaction Severity Status lisinopril Active penicillins Rash Active Immunizations Given and Recorded Vaccine Date Status Refusal Reason tetanus/diphtheria/pertussis, acel(Tdap) 1 12/20/17 Given Not Given Vaccine Date Status Refusal Reason Influenza Virus Vaccine (oldterm) 06/21/19 Not Giv en Patient Refuses 1Result Comment: [12/20/2017] [facility] 62074-618-71 Medications Acetaminophen Daily, 0 Refills, Maintenance, 09/10/22 8:02:00 EST, Partial fill upon patient request if the prescription is for a schedule II opioid drug. Start Date: 09/10/22 Status: Ordered amiodarone 200 mg oral tablet 200 mg, 1, tablet, By Mouth, Daily, # 30 tablet, Refills 0, Tot. Refills 0, Maintenance, 09/05/22 9:34:00 EST, Route to Pharmacy Electronically, [facility], Partial fill upon patient request if the prescription is for a schedule II opioi... Start Date: 09/05/22 Status: Ordered aspirin 81 mg oral tablet 1 tablet = 81 mg, By Mouth, Daily, # 30 tablet, 0 Refills, Maintenance, 03/11/17 15:49:45, Tablet Start Date: 03/11/17 Status: Ordered dapagliflozin 10 mg oral tablet 1 tablet = 10 mg, By Mouth, Daily, # 30 tablet, 0 Refills, Maintenance, 09/05/22 9:49:00 EST, Tablet, [facility], Partial fill upon patient request if the prescription is for a scheduleII opioid drug., 177.8, cm, 09/05/22 8:50:00 EST, H... Start Date: 09/05/22 Status: Ordered doxazosin 4 mg oral tablet 1 tablet, By Mouth, Daily, # 90 tablet, 1 Refills, Maintenance, 07/05/22 16:17:00 EST, [facility]/pharmacy#[id number], 178, cm, 07/01/22 7:55:00 EST, Height Start Date: 07/05/22 Status: Ordered Eliquis 5 mg oral tablet 1 tablet = 5 mg, By Mouth, 2 times a day, # 60 tablet, 5 Refills, Maintenance, 07/01/22 9:02:00 EST, [id number] Partial fill upon patient request if the prescription is for a schedule II opioid drug., 178, cm, 07/01/22 7:55:00 EST, He... Start Date: 07/01/22 Status: Ordered gabapentin 100 mg oral capsule 2, capsule, By Mouth, Daily at bedtime, # 60 capsule, Refills 2, Maintenance, 06/18/22 11:52:00 EST, Route to Pharmacy Electronically, [facility] STORE 82152, 176.4, cm, 05/15/22 11:35:00 EDT, Height Start Date: 06/18/22 Status: Ordered metoprolol succinate 100 mg oral capsule, extended release 1 capsule = 100 mg, By Mouth, Daily, # 30 capsule, 0 Refills, Maintenance, 09/05/22 9:33:00 EST, ERCapsule, [facility], Partial fill upon patient request if the prescription is for a schedule II opioid drug., 177.8, cm, 09/05/22 8:50:00... Start Date: 09/05/22 Stop Date: 10/05/22 Status: Ordered omeprazole 20 mg oral enteric coated capsule 1 capsule = 20 mg, By Mouth, Daily, (buys OTC), Maintenance, 06/22/22 16:42:00 EST, [facility] Caps[facility], ; Start Date: 06/22/22 Status: Ordered spironolactone 25 mg oral tablet 25 mg, 1, tablet, By Mouth, Daily, # 30 tablet, Refills 0, Tot. Refills 0, Maintenance, 09/05/22 9:32:00 EST, Route to Pharmacy Electronically, [facility], Partial fill upon patient request if the prescription is for a schedule II opioid... Start Date: 09/05/22 Status: Ordered Tadalafil (Eqv-Cialis) 20 mg oral tablet 1 tablet, By Mouth, Daily, PRN NEEDED FOR ERECTILE DYSFUNCTION, # 5 tablet, 2 Refills, Maintenance, 08/11/22 9:25:00 EST, [facility] ST[facility] 91437, 178, cm, 08/07/22 15:14:00 EST, Height, 147, kg, 08/04/2217:07:00 EST, Dry Weight Start Date: 08/11/22 Status: Ordered torsemide 20 mg oral tablet 1 tablet = 20 mg, By Mouth, 2 times a day, # 60 tablet, 0 Refills, Maintenance, 09/05/22 9:32:00 EST, Tablet, [facility], Partial fill upon patient request if the prescription is for a schedule II opioid drug., 177.8, cm, 09/05/22 8:50:0... Start Date: 09/05/22 Status: Ordered valsartan 40 mg oral tablet 80 mg, 2, tablet, By Mouth, 2 times a day, # 120 tablet, Refills 0, Tot. Refills 0, Maintenance, 09/05/22 9:33:00 EST, Route to Pharmacy Electronically, [facility], Partial fill upon patient request if the prescription is for a schedule... Start Date: 09/05/22 Status: Ordered Problem List Condition Confirmation Course [...] Team Personnel Name: Lázaro Garcia RN Position: [facility] RN Member Role: Primary Care Nurse Name: Alanis Harris Position: [facility] RN Supv Member Role: Primary Care Nurse Name: Brittani Anguiano RN Position: S RN Member Role: Primary Care Nurse Name: Cortez Blunt MD Position: [facility] Primary Care Physician Member Role: PCP Address: Address: [address] [place] [address] Name: Edna Kelly RN Position: S RN Member Role: Primary Care Nurse Name: Ron Babb RN Position: [facility] RN Member Role: Primary Care Nurse Care Team Related Persons Name: CECY NGUYEN Address: [address] [place] [address] Name: LEIDY NGUYEN JR Address: [address] [place] [address]
--- OUTSIDE RECORDS SUMMARY | 2024-05-03 22:12 | XMS_ITS | Continuity of Care Document ---
Author Organization [facility] Address [address] [place] [address]- Care Team Providers Care Change Management Manager Name Role Phone Merlene BYRNE, Cortez Kendall Primary Care Physician Encounter [facility] [place] [facility] R [id number] Date(s): 09/02/22 - 10/17/22 [facility] [address] [place] [address]- Attending Physician: Ananda Loaiza NP Admitting Physician: Ananda Loaiza NP Allergies, Adverse Reactions, Alerts Substance Reaction Severity Status lisinopril Active penicillins Rash Active Immunizations Given and Recorded Vaccine Date Status Refusal Reason tetanus/diphtheria/pertussis, acel(Tdap) 1 12/20/17 Given Not Given Vaccine Date Status Refusal Reason Influenza Virus Vaccine (oldterm) 06/21/19 Not Giv en Patient Refuses 1Result Comment: [12/20/2017] [facility] [id number] Medications Acetaminophen Daily, 0 Refills, Maintenance, 09/10/22 8:02:00 EST, Partial fill upon patient request if the prescription is for a schedule II opioid drug. Start Date: 09/10/22 Status: Ordered amiodarone 200 mg oral tablet 200 mg, 1, tablet, By Mouth, Daily, # 90 tablet, Refills 0, Tot. Refills 0, Maintenance, 10/06/22 9:50:00 EST, Route to Pharmacy Electronically, [facility]/pharmacy #[id number], Partial fill upon patient request if the prescription is for a schedule II opioid drug... Start Date: 10/06/22 Stop Date: 01/04/23 Status: Ordered amLODIPine 10 mg oral tablet 1 tablet, By Mouth, Daily, # 90 tablet, 3 Refills, Maintenance, 09/29/22 6:28:00 EST, [facility], 177.8, cm, 09/10/22 8:00:00 EST, Height, 146.1, [...] 0 Refills, Maintenance, 10/06/22 9:48:00 EST, Tablet, [facility]/pharmacy #2071, Partial fill upon patient request if the prescription is for a schedule II opioid drug., 177.8, cm, 09/10/22 8:00:00 EST, Height,... Start Date: 10/06/22 Status: Ordered doxazosin 4 mg oral tablet 1 tablet, By Mouth, Daily, # 90 tablet, 1 Refills, Maintenance, 07/05/22 16:17:00 EST, [facility]/pharmacy#2071, 178, cm, 07/01/22 7:55:00 EST, Height Start Date: 07/05/22 Status: Ordered Eliquis 5 mg oral tablet 1 tablet = 5 mg, By Mouth, 2 times a day, # 60 tablet, 5 Refills, Maintenance, 07/01/22 9:02:00 EST, Tablet, [facility]/pharmacy #2071, Partial fill upon patient request if the prescription is for a schedule II opioid drug., 178, cm, 07/01/22 7:55:00 EST, He... Start Date: 07/01/22 Status: Ordered gabapentin 100 mg oral capsule 2, capsule, By Mouth, Daily at bedtime, # 60 capsule, Refills 2, Maintenance, 09/28/22 14:04:00 EST, Route to Pharmacy Electronically, [facility] STORE 30203, 177.8, cm, 09/10/22 8:00:00 EST, Height, 146.1,kg, 08/29/22 15:57:00 EST, Dry Weight Start Date: 09/28/22 Status: Ordered metoprolol succinate 100 mg oral capsule, extended release 1 capsule = 100 mg, By Mouth, Daily, # 30 capsule, 0 Refills, Maintenance, 09/05/22 9:33:00 EST, ERCapsule, [facility], Partial fill upon patient [...] Refills 0, Tot. Refills 0, Maintenance, 10/06/22 9:49:00 EST, Route to Pharmacy Electronically, [facility]/pharmacy #[id number], Partial fill upon patient request if the prescription is for a schedule II opioid drug.... Start Date: 10/06/22 Stop Date: 01/04/23 Status: Ordered Tadalafil (Eqv-Cialis) 20 mg oral tablet 1 tablet, By Mouth, Daily, PRN NEEDED FOR ERECTILE DYSFUNCTION, # 5 tablet, 2 Refills, Maintenance, 08/11/22 9:25:00 EST, [facility], 178, cm, 08/07/22 15:14:00 EST, Height, 147, [...] 10/06/22 Stop Date: 01/04/23 Status: Ordered valsartan 40 mg oral tablet 80 mg, 2, tablet, By Mouth, 2 times a day, # 360 tablet, Refills 0, Tot. Refills 0, Maintenance, 10/06/22 9:48:00 EST, Route to Pharmacy Electronically, [facility]/pharmacy #[id number], Partial fill upon patient request if the prescription is for a schedule II opi... Start Date: 10/06/22 Stop Date: 01/04/23 Status: Ordered Problem List Condition Confirmation Course [...] Name: Cortez Blunt MD Position: [facility] Primary Care Physician Member Role: PCP Address: Address: [address] [place] [id number]- Name: Ron Babb RN Position: S RN Member Role: Primary Care Nurse Care Team Related Persons Name: CECY NGUYEN Address: home [address] [place] [address] Name: LEIDY NGUYEN JR Address: [address] [place] [address]
--- OUTSIDE RECORDS SUMMARY | 2024-05-03 22:12 | XMS_ITS | Continuity of Care Document ---
Author Organization [facility] Address [address] [place] [address]- Care Team Providers Care Milling Supervisor Name Role Phone Merlene BYRNE, Cortez Kendall Primary Care Physician Encounter [facility] [place] Date(s): 12/21/22 - 01/20/23 [facility] [address] [place] [address]- Attending Physician: Uri Chance Admitting Physician: AdmtrUri Referring Physician: Admtr, Ar8 Allergies, Adverse Reactions, Alerts Substance Reaction Severity Status lisinopril Active penicillins Rash Active Immunizations Given and Recorded Vaccine Date Status Refusal Reason tetanus/diphtheria/pertussis, acel(Tdap) 1 12/20/17 Given Not Given Vaccine Date Status Refusal Reason Influenza Virus Vaccine (oldterm) 06/21/19 Not Giv en Patient Refuses 1Result Comment: [12/20/2017] [facility] 49912-264-34 Medications Acetaminophen Daily, 0 Refills, Maintenance, 09/10/22 8:02:00 EST, Partial fill upon patient request if the prescription is for a schedule II opioid drug. Start Date: 09/10/22 Status: Ordered amLODIPine 10 mg oral tablet 1 tablet, By Mouth, Daily, # 90 tablet, 3 Refills, Maintenance, 09/29/22 6:28:00 EST, [facility], 177.8, cm, 09/10/22 8:00:00 EST, Height, 146.1, [...] 0 Refills, Maintenance, 10/06/22 9:48:00 EST, Tablet, [facility]/pharmacy #2071, Partial fill upon patient request if the prescription is for a schedule II opioid drug., 177.8, cm, 09/10/22 8:00:00 EST, Height,... Start Date: 10/06/22 Status: Ordered doxazosin 4 mg oral tablet 1 tablet, By Mouth, Daily, # 90 tablet, 1 Refills, Maintenance, 12/17/22 11:10:00 EDT, [facility] ST[facility] 97727, 176.1, cm, 10/21/22 11:09:00 EDT, Height, 146.1, kg, 08/29/22 15:57:00 EST, Dry Weight Start Date: 12/17/22 Status: Ordered Eliquis 5 mg oral tablet 1 tablet = 5 mg, By Mouth, 2 times a day, # 60 tablet, 5 Refills, Maintenance, 07/01/22 9:02:00 EST, Tablet, [facility]/pharmacy #[id number], Partial fill upon patient request if the prescription is for a schedule II opioid drug., 178, cm, 07/01/22 7:55:00 EST, He... Start Date: 07/01/22 Status: Ordered gabapentin 100 mg oral capsule 2, capsule, By Mouth, Daily at bedtime, # 60 capsule, Refills 2, Maintenance, 09/28/22 14:04:00 EST, Route to Pharmacy Electronically, [facility] ST[facility] 09455, 177.8, cm, 09/10/22 8:00:00 EST, Height, 146.1,kg, 08/29/22 15:57:00 EST, Dry Weight Start Date: 09/28/22 Status: Ordered Metoprolol Succinate ER 100 mg oral tablet, extended release See Instructions, TAKE 1 TABLET BY MOUTH EVERY DAY, # 90 tablet, 1 Refills, Maintenance, 11/09/22 9:12:00 EDT, [facility]/pharmacy #[id number], 176.1, cm, 10/21/22 11:09:00 EDT, [...] 11/09/22 9:07:00 EDT, Route to Pharmacy Electronically, [facility]/pharmacy #[id number], 176.1, cm, 10/21/22 11:09:00 EDT, Height, 146.1, kg, 08/29/22 15:57:00 EST, Dry Weight Start Date: 11/09/22 Status: Ordered Tadalafil (Eqv-Cialis) 20 mg oral tablet 1 tablet, By Mouth, Daily, PRN NEEDED FOR ERECTILE DYSFUNCTION, # 5 tablet, 2 Refills, Maintenance, 08/11/22 9:25:00 EST, [facility] STORE 46551, 178, cm, 08/07/22 15:14:00 EST, Height, 147, [...] 3 Refills, Maintenance, 12/17/22 6:36:00 EDT, Tablet, [facility]/pharmacy #2071, Partial fill upon patient request if the prescription is for a schedule II opioid drug., 176.1, cm, 10/21/22 11:09:00 ED... Start Date: 12/17/22 Stop Date: 12/12/23 Status: Ordered valsartan 160 mg oral tablet 160 mg, 1, tablet, By Mouth, 2 times a day, # 180 tablet, Refills 4, Tot. Refills 4, Maintenance, 10/19/22 13:24:00 EDT, Route to Pharmacy Electronically, [facility]/pharmacy #2756, Partial fill upon patient request if the [...] Team Personnel Name: Lázaro Garcia RN Position: [facility] RN Member Role: Primary Care Nurse Name: Alanis Harris Position: [facility] RN Supv Member Role: Primary Care Nurse Name: Brittani Anguiano RN Position: [facility] RN Member Role: Primary Care Nurse Name: Cortez Blunt MD Position: [facility] Physician - Primary Care Member Role: PCP Address: Address: [address] [place] [id number]- Name: Ron Babb RN Position: [facility] RN Member Role: Primary Care Nurse Care Team Related Persons Name: CECY NGUYEN Address: [address] [place] [address] Name: LEIDY NGUYEN JR Address: [address] [place] [address]
--- OUTSIDE RECORDS SUMMARY | 2024-05-03 22:12 | XMS_ITS | Continuity of Care Document ---
Author Organization [facility] Darrell Address [address] [place] [address]- Care Team Providers Care Proposal Analyst Name Role Phone Merlene BYRNE, Cortez Kendall Primary Care Physician [phone] Encounter [facility] Date(s): 04/07/21 - 04/14/21 [facility] Adult [address] [place] [address]- Encounter Diagnosis Slurred speech(Discharge Diagnosis) - 04/07/21 Brown palsy(Discharge Diagnosis) - 04/07/21 Attending Physician: Magdaleno MYERS, Kiya James Allergies, Adverse Reactions, Alerts Substance Reaction Severity Status lisinopril Active penicillins Rash Active Immunizations Given and Recorded Vaccine Date Status Refusal Reason tetanus/diphtheria/pertussis, acel(Tdap) 1 12/20/17 Given Not Given Vaccine Date Status Refusal Reason Influenza Virus Vaccine (oldterm) 06/21/19 Not Giv en Patient Refuses 1Result Comment: [12/20/2017] [facility] 00357-384-77 Medications amLODIPine 10 mg oral tablet 1 tablet, By Mouth, Daily, # 30 tablet, 5 Refills, Maintenance, 01/29/21 8:22:00 EDT, [facility], 176.4, cm, 12/25/20 7:05:00 EDT, Height Start Date: 01/29/21 Status: Ordered aspirin 81 mg oral tablet 1 tablet = 81 mg, By Mouth, Daily, # 30 tablet, 0 Refills, Maintenance, 03/11/17 15:49:45, Tablet Start Date: 03/11/17 Status: Ordered Ativan 1 mg oral tablet 1 tablet = 1 mg, By Mouth, Once, take one hour prior to MRI, # 1 tablet, 0 Refills, Soft Stop, 04/07/21 8:04:00 EDT, [id number], Partial fill upon patient request if the prescription is for aschedule II opioid drug., 176.4, cm, 04/07/21 7:14:... Start Date: 04/07/21 Status: Ordered Cialis 20 mg oral tablet [...] Refills, Maintenance, 12/31/20 17:04:00 EDT, [facility], 176.4, cm, 12/25/20 7:05:00 EDT, Height Start Date: 12/31/20 Status: Ordered gabapentin 100 mg oral capsule 1, capsule, By Mouth, Daily at bedtime, # 30 capsule, Refills 2, Tot. Refills 0, Maintenance, 02/27/21 17:42:00 EDT, Route to Pharmacy Electronically, [facility], 176.4, cm, 12/25/20 7:05:00 EDT, Height Start Date: 02/27/21 Status: Ordered irbesartan 150 mg oral tablet 1 tablet, By Mouth, Daily, # 30 tablet, 5 Refills, Maintenance, 01/15/21 13:26:00 EDT, [id number], 176.4, cm, 12/25/20 7:05:00 EDT, Height Start Date: 01/15/21 Status: Ordered Problem List Condition Effective Dates Status Health Status Inform ant Benign essential hypertension(Confirmed) Active Sleep related hypoventilation/hypoxemia in other disease(Confirmed) Active Diverticulosis(Confirmed) 1 Active Hemorrhoids(Confirmed) Active Bilateral knee pain(Confirmed) Active Migraine(Confirmed) Active Obesity(Confirmed) Active JR (obstructive sleep apnea)(Confirmed) Active 1PER 03/02/14 COLONOSCOPY-DR ANABELLA CONCEPCION Diagnosis Diagnosis Type Effective Dates Health Status Cl inical Service Informant Slurred speech Discharge Diagnosis 04/07/21 Brown palsy Discharge Diagnosis 04/07/21 Vital Signs Most recent to oldest [Reference Range]: 1 Height 176.4 cm (04/07/21 7:14 AM) Weight 164.4 kg (04/07/21 7:14 AM) Oxygen Saturation [94-100 %] 98 % (04/07/21 7:14 AM) Pulse Rate [55-90 bpm] 77 bpm (04/07/21 7:14 AM) Body Mass Index [18.5-24.99] 52.83 *>HHI* (04/07/21 7:14 AM) Blood Pressure [90-138/55-84 mm Hg] 119/ 82mm Hg (04/07/21 7:14 AM) Temperature [96.8-100.4 DegF] 97.9 DegF (04/07/21 7:14 AM) Blood pressure sites Arm, right (04/07/21 7:14 AM) Temperature Route Oral (04/07/21 7:14 AM) Weight Obtained Via Standing scale (04/07/21 7:14 AM) Social History Social History Type Response Smoking Status Never smoker entered on: 03/11/17 Sex
--- OUTSIDE RECORDS SUMMARY | 2024-05-03 22:12 | XMS_ITS | Continuity of Care Document ---
Author Organization [facility] Darrell lt Address [address] [place] [address]- Care Team Providers Care Green Jobs Trainer Name Role Phone Cortez Blunt MD Primary Care Physician Encounter [facility] Date(s): 10/21/22 - 10/28/22 [facility] Adult [address] [place] [address]- Attending Physician: Cortez Blunt MD Allergies, Adverse Reactions, Alerts Substance Reaction Severity Status lisinopril Active penicillins Rash Active Immunizations Given and Recorded Vaccine Date Status Refusal Reason tetanus/diphtheria/pertussis, acel(Tdap) 1 12/20/17 Given Not Given Vaccine Date Status Refusal Reason Influenza Virus Vaccine (oldterm) 06/21/19 Not Giv en Patient Refuses 1Result Comment: [12/20/2017] [facility] 62151-759-92 Medications Acetaminophen Daily, 0 Refills, Maintenance, 09/10/22 8:02:00 EST, Partial fill upon patient request if the prescription is for a schedule II opioid drug. Start Date: 09/10/22 Status: Ordered amiodarone 200 mg oral tablet 200 mg, 1, tablet, By Mouth, Daily, # 90 tablet, Refills 0, Tot. Refills 0, Maintenance, 10/06/22 9:50:00 EST, Route to Pharmacy Electronically, [facility]/pharm[facility] #[id number], Partial fill upon patient request if the prescription is for a schedule II opioid drug... Start Date: 10/06/22 Stop Date: 01/04/23 Status: Ordered amLODIPine 10 mg oral tablet 1 tablet, By Mouth, Daily, # 90 tablet, 3 Refills, Maintenance, 09/29/22 6:28:00 EST, [facility], 177.8, cm, 09/10/22 8:00:00 EST, Height, 146.1, [...] 0 Refills, Maintenance, 10/06/22 9:48:00 EST, Tablet, [facility]/pharm[facility] #[id number], Partial fill upon patient request if the prescription is for a schedule II opioid drug., 177.8, cm, 09/10/22 8:00:00 EST, Height,... Start Date: 10/06/22 Status: Ordered doxazosin 4 mg oral tablet 1 tablet, By Mouth, Daily, # 90 tablet, 1 Refills, Maintenance, 07/05/22 16:17:00 EST, [facility]pharm[facility][id number], 178, cm, 07/01/22 7:55:00 EST, Height Start [...] 09/28/22 14:04:00 EST, Route to Pharmacy Electronically, [facility], 177.8, cm, 09/10/22 8:00:00 EST, Height, 146.1,kg, 08/29/22 15:57:00 EST, Dry Weight Start Date: 09/28/22 Status: Ordered metoprolol succinate 100 mg oral capsule, extended release 1 capsule = 100 mg, By Mouth, Daily, # 30 capsule, 0 Refills, Maintenance, 09/05/22 9:33:00 EST, [place], [facility], Partial fill upon patient request [...] 10/06/22 9:49:00 EST, Route to Pharmacy Electronically, [facility]/pharmacy #[id number], Partial fill upon patient request if the prescription is for a schedule II opioid drug.... Start Date: 10/06/22 Stop Date: 01/04/23 Status: Ordered Tadalafil (Eqv-Cialis) 20 mg oral tablet 1 tablet, By Mouth, Daily, PRN NEEDED FOR ERECTILE DYSFUNCTION, # 5 tablet, 2 Refills, Maintenance, 08/11/22 9:25:00 EST, [facility] 88[facility], 178, cm, 08/07/22 15:14:00 EST, Height, 147, kg, 08/04/2217:07:00 EST, Dry Weight Start Date: 08/11/22 Status: Ordered torsemide 20 mg oral tablet 1 tablet = 20 mg, By Mouth, 2 times a day, # 180 tablet, 0 Refills, Maintenance, 10/06/22 9:48:00 EST, Tablet, [facility][id number], Partial fill [...] 10/19/22 13:24:00 EDT, Route to Pharmacy Electronically, [facility]/pharm[facility] #[id number], Partial fill upon patient request if the [...] recent to oldest [Reference Range]: 1 Height 176.1 cm (10/21/22 11:09 AM) Weight 147.0 kg (10/21/22 11:09 AM) Oxygen Saturation [94-100 %] 97 % (10/21/22 11:09 AM) Pulse Rate [55-90 bpm] 54 bpm *L* (10/21/22 11:09 AM) Body Mass Index [18.5-24.99 kg/m2] 47.4 kg/m2 *>HHI* (10/21/22 11:09 AM) Blood Pressure [90-138/55-84 mm Hg] 106/ 64mm Hg (10/21/22 11:09 AM) Temperature [96.8-100.4 DegF] 98.0 DegF (10/21/22 11:09 AM) Mode of Delivery (Oxygen) Room air (10/21/22 11:09 AM) Blood pressure sites Arm, left (10/21/22 11:09 AM) Temperature Route Oral (10/21/22 11:09 AM) Weight Obtained Via Standing scale (10/21/22 11:09 AM) Social History Social History Type Response Smoking Status Never smoker entered on: 03/11/17 Sex Patient Care team information Care Team Personnel Name: Jose MCFARLANE, Lázaro Position: [facility] RN Member Role: Primary Care Nurse Name: Alanis Harris Position: [facility] MCFARLANE Supv Member Role: Primary Care Nurse Name: Brittani Anguiano RN Position: [facility] SN RN Member Role: Primary Care Nurse Name: Cortez Blunt MD Position: [facility] Primary Care Physician Member Role: PCP Address: Address: [address] [place] [address]- Name: Ron Babb RN Position: [facility] RN Member Role: Primary Care Nurse Care Team Related Persons Name: CECY NGUYEN Address: home [address] [place] [address] Name: LEIDY NGUYEN JR Address: home [address] [place] [address]
--- OUTSIDE RECORDS SUMMARY | 2024-05-03 22:12 | XMS_ITS | Continuity of Care Document ---
Author Organization [facility] Darrell Address [address] [place] [address]- Care Team Providers Care Vending Supervisor Name Role Phone Merlene BYRNE, Cortez Kendall Primary Care Physician Encounter [facility] Date(s): 02/24/23 - 03/03/23 [facility] Adult [address] [place] [address]- Encounter Diagnosis Right foot pain(Discharge Diagnosis) - 02/23/23 Benign essential hypertension(Discharge Diagnosis) - 02/23/23 Attending Physician: Tello Irizarry DO Allergies, Adverse Reactions, Alerts Substance Reaction Severity Status lisinopril cough Active penicillins Rash Active Immunizations Given and Recorded Vaccine Date Status Refusal Reason tetanus/diphtheria/pertussis, acel(Tdap) 1 12/20/17 Given Not Given Vaccine Date Status Refusal Reason Influenza Virus Vaccine (oldterm) 06/21/19 Not Giv en Patient Refuses 1Result Comment: [12/20/2017] [facility] [id number] Medications Acetaminophen Daily, 0 Refills, Maintenance, 09/10/22 8:02:00 EST, Partial fill upon patient request if the prescription is for a schedule II opioid drug. Start Date: 09/10/22 Status: Ordered amLODIPine 10 mg oral tablet 1 tablet, By Mouth, Daily, # 90 tablet, 3 Refills, Maintenance, 09/29/22 6:28:00 EST, [facility] 69737, 177.8, cm, 09/10/22 8:00:00 EST, Height, 146.1, [...] 0 Refills, Maintenance, 10/06/22 9:48:00 EST, Tablet, [facility]/pharmacy #[id number], Partial fill upon patient request if the prescription is for a schedule II opioid drug., 177.8, cm, 09/10/22 8:00:00 EST, Height,... Start Date: 10/06/22 Status: Ordered doxazosin 4 mg oral tablet 1 tablet, By Mouth, Daily, # 90 tablet, 1 Refills, Maintenance, 12/17/22 11:10:00 EDT, [facility], 176.1, cm, 10/21/22 11:09:00 EDT, Height, 146.1, kg, 08/29/22 15:57:00 EST, Dry Weight Start Date: 12/17/22 Status: Ordered Eliquis 5 mg oral tablet 1 tablet = 5 mg, By Mouth, 2 times a day, # 60 tablet, 5 Refills, Maintenance, 07/01/22 9:02:00 EST, Tablet, [facility]/pharmacy #[id number], Partial fill upon patient request if the prescription is for a schedule II opioid drug., 178, cm, 07/01/22 7:55:00 EST, He... Start Date: 07/01/22 Status: Ordered gabapentin 100 mg oral capsule 2, capsule, By Mouth, Daily at bedtime, # 60 capsule, Refills 2, Maintenance, 02/05/23 11:56:00 EDT, Route to Pharmacy Electronically, [facility], 176.1, cm, 12/21/22 16:31:00 EDT, Height, 146.1, [...] 02/05/23 9:02:00 EDT, Route to Pharmacy Electronically, [facility], 176.1, cm, 12/21/22 16:31:00 EDT, Height, 146.1, kg, 08/29/2314:57:00 EST, Dry Weight Start Date: 02/05/23 Status: Ordered Tadalafil (Eqv-Cialis) 20 mg oral tablet 1 tablet, By Mouth, Daily, PRN NEEDED FOR ERECTILE DYSFUNCTION, # 5 tablet, 1 Refills, Maintenance, 01/25/23 20:35:00 EDT, [facility] 798[facility], 176.1, cm, 12/21/22 16:31:00 EDT, Height, 146.1, [...] 3 Refills, Maintenance, 12/17/22 6:36:00 EDT, Tablet, [facility]/pharmacy #[id number], Partial fill upon patient request if the prescription is for a schedule II opioid drug., 176.1, cm, 10/21/22 11:09:00 ED... Start Date: 12/17/22 Stop Date: 12/12/23 Status: Ordered valsartan 160 mg oral tablet 160 mg, 1, tablet, By Mouth, 2 times a day, # 180 tablet, Refills 4, Tot. Refills 4, Maintenance, 10/19/22 13:24:00 EDT, Route to Pharmacy Electronically, [facility]/pharmacy #[id number], Partial fill upon patient request if the [...] Confirmed Active 1PER 03/02/14 COLONOSCOPY-DR ANABELLA CONCEPCION Diagnosis Diagnosis Type Effective Dates Health Status Clinical Service Informant Right foot pain Discharge Diagnosis 02/23/23 Benign essential hypertension Discharge Diagnosis 02/23/23 Vital Signs Most recent to oldest [Reference Range]: 1 Height 176.1 cm (02/24/23 2:28 PM) Weight 153.3 kg (02/24/23 2:28 PM) Oxygen Saturation [94-100 %] 97 % (02/24/23 2:28 PM) Pulse Rate [55-90 bpm] 57 bpm (02/24/23 2:28 PM) Body Mass Index [18.5-24.99 kg/m2] 49.43 kg/m2 *>HHI* (02/24/23 2:28 PM) Blood Pressure [90-138/55-84 mm Hg] 142/ 78mm Hg *H* (02/24/23 2:28 PM) Temperature [96.8-100.4 DegF] 98.0 DegF (02/24/23 2:28 PM) Blood pressure sites Arm, right (02/24/23 2:28 PM) Social History Social History Type Response Smoking Status Never smoker entered on: 03/11/17 Sex Patient Care team information Care Team Personnel Name: Lázaro Garcia RN Position: [facility] RN Member Role: Primary Care Nurse Name: Alanis Harris Position: [facility] RN Supv Member Role: Primary Care Nurse Name: Brittani Anguiano RN Position: [facility] SN RN Member Role: Primary Care Nurse Name: Cortez Blunt MD Position: [facility] Physician - Primary Care Member Role: PCP Address: Address: [address] [place] [id number]- Name: Ron Babb RN Position: [facility] RN Member Role: Primary Care Nurse Care Team Related Persons Name: CECY NGUYEN Address: [address] [place] [address] Name: LEIDY NGUYEN JR Address: [address] [place] [address]
--- OUTSIDE RECORDS SUMMARY | 2024-05-03 22:12 | XMS_ITS | Continuity of Care Document ---
Author Organization [facility] Address [address] [place] [address]- Care Team Providers Care Flitch Hanger Name Role Phone Merlene BYRNE, Cortez Kendall Primary Care Physician Encounter [facility] Date(s): 05/13/23 - 05/20/23 [facility] [address], [place] [address] Attending Physician: Aleksander BYRNE, Magdaleno iSm Referring Physician: Bairon Stokes MD Allergies, Adverse Reactions, Alerts Substance Reaction Severity Status lisinopril cough Active penicillins Rash Active Immunizations Given and Recorded Vaccine Date Status Refusal Reason tetanus/diphtheria/pertussis, acel(Tdap) 1 12/20/17 Given 1Result Comment: [12/20/2017] [facility] [id number] Medications Acetaminophen Daily, 0 Refills, Maintenance, 09/10/22 [...] Refills, Maintenance, 12/17/22 11:10:00 EDT, [facility], 176.1, cm, 10/21/22 11:09:00 EDT, Height, 146.1, kg, 08/29/22 15:57:00 EST, Dry Weight Start Date: 12/17/22 Status: Ordered Eliquis 5 mg oral tablet 1 tablet = 5 mg, By Mouth, 2 times a day, # 60 tablet, 5 Refills, Maintenance, 07/01/22 9:02:00 EST, Tablet, [facility]/pharmacy #[id number], Partial fill upon patient request if the prescription is for a schedule II opioid drug., 178, cm, 07/01/22 7:55:00 EST, He... Start Date: 07/01/22 Status: Ordered gabapentin 100 mg oral capsule 2, capsule, By Mouth, Daily at bedtime, # 180 capsule, Refills 1, Tot. Refills 1, Maintenance, 05/10/23 13:26:00 EDT, Route to Pharmacy Electronically, [facility]/pharmacy #[id number], 176.1, cm, 05/10/23 13:05:00 EDT, Height, 146.1, kg, 08/29/22 15:57:00 EST, Dry... Start Date: 05/10/23 Status: Ordered LORazepam 2 mg oral tablet 1 tablet = 2 mg, By Mouth, Once, one hour prior to procedure, # 1 tablet, 0 Refills, Soft Stop, 05/17/23 4:44:00 EDT, Tablet, [facility]/pharmacy #[id number], Partial fill upon patient request if the prescriptionis for a schedule II opioid drug., 176.1, cm, 05/13... Start Date: 05/17/23 Status: Ordered Metoprolol Succinate ER 100 mg oral tablet, extended release See Instructions, TAKE 1 TABLET BY MOUTH EVERY DAY, # 90 tablet, 1 Refills, Maintenance, 11/09/22 9:12:00 EDT, [facility]/pharmacy #[id number], 176.1, cm, 10/21/22 11:09:00 EDT, [...] EDT, Route to Pharmacy Electronically, [facility], 176.1, cm, 12/21/22 16:31:00 EDT, Height, 146.1, kg, 08/29/2314:57:00 EST, Dry Weight Start Date: 02/05/23 Status: Ordered Tadalafil (Eqv-Cialis) 20 mg oral tablet 1 tablet, By Mouth, Daily, PRN NEEDED FOR ERECTILE DYSFUNCTION, # 5 tablet, 1 Refills, Maintenance, 01/25/23 20:35:00 EDT, [facility], 176.1, cm, 12/21/22 16:31:00 EDT, Height, 146.1, [...] 3 Refills, Maintenance, 12/17/22 6:36:00 EDT, Tablet, [facility]/pharmacy #[id number], Partial fill upon patient request if the prescription is for a schedule II opioid drug., 176.1, cm, 10/21/22 11:09:00 ED... Start Date: 12/17/22 Stop Date: 12/12/23 Status: Ordered valsartan 160 mg oral tablet 160 mg, 1, tablet, By Mouth, 2 times a day, # 180 tablet, Refills 4, Tot. Refills 4, Maintenance, 10/19/22 13:24:00 EDT, Route to Pharmacy Electronically, [facility]/pharmacy #[id number], Partial fill upon patient request [...] oldest [Reference Range]: 1 Height 176.1 cm (05/13/23 9:04 AM) Weight 154.3 kg (05/13/23 9:04 AM) Oxygen Saturation [94-100 %] 99 % (05/13/23 9:04 AM) Pulse Rate [55-90 bpm] 64 bpm (05/13/23 9:04 AM) Body Mass Index [18.5-24.99 kg/m2] 49.76 kg/m2 *>HHI* (05/13/23 9:04 AM) Blood Pressure [90-138/55-84 mm Hg] 136/ 67mm Hg (05/13/23 9:04 AM) Respiratory Rate [16-30 br/min] 20 br/mi n (05/13/23 9:04 AM) Mode of Delivery (Oxygen) Room air (05/13/23 9:04 AM) Blood pressure sites Arm, right (05/13/23 9:04 AM) Weight Obtained Via Standing scale (05/13/23 9:04 AM) Social History Social History Type Response Smoking Status Never smoker entered on: 03/11/17 Sex Patient Care team information Care Team Personnel Name: Alanis Harris Position: [facility] RN Supv Member Role: Primary Care Nurse Name: Brittani Anguiano RN Position: [facility] RN Member Role: Primary Care Nurse Name: Cortez Blunt MD Position: [facility] Physician - Primary Care Member Role: PCP Address: Address: [address] [place] [address]- Name: Ron Babb RN Position: S RN Member Role: Primary Care Nurse Care Team Related Persons Name: CECY NGUYEN Address: [address] [place] [address] Name: LEIDY NGUYEN JR Address: [address] [place] [address]
--- OUTSIDE RECORDS SUMMARY | 2024-05-03 22:12 | XMS_ITS | Continuity of Care Document ---
Author Organization [facility] Darrell Address [address] [place] [address]- Care Team Providers Care Non Ferrous Material Handler Name Role Phone Merlene BYRNE, Cortez Kendall Primary Care Physician [phone] Encounter [facility] [id number] Date(s): 12/02/23 - 01/01/24 [facility] Adult [address] [place] [address]- Allergies, Adverse Reactions, Alerts Substance Reaction Severity Status lisinopril cough Active penicillins Rash Active Immunizations Given and Recorded Vaccine Date Status Refusal Reason tetanus/diphtheria/pertussis, acel(Tdap) 1 12/20/17 Given 1Result Comment: [12/20/2017] [facility] [id number] Medications aspirin 81 mg oral tablet 1 tablet = 81 mg, By Mouth, Daily, # 30 tablet, 0 Refills, Maintenance, 03/11/17 15:49:45, Tablet Start Date: 03/11/17 Status: Ordered doxazosin 4 mg oral tablet 1 tablet, By Mouth, Daily, # 90 tablet, 3 Refills, Maintenance, 07/13/23 5:16:00 EST, [facility], 176.1, cm, 06/25/23 8:54:00 EST, Height, 146.1, kg, 08/29/22 15:57:00 EST, Dry Weight Start Date: 07/13/23 Status: Ordered Eliquis 5 mg oral tablet 1 tablet, By Mouth, 2 times a day, *STOP ASPIRIN*., # 60 tablet, 11 Refills, Maintenance, 07/13/23 5:16:00 EST, [facility], 176.1, cm, 06/25/23 8:54:00 EST, Height, 146.1, kg, 08/29/22 15:57:00 EST, Dry Weight Start Date: 07/13/23 Status: Ordered gabapentin 100 mg oral capsule 2, capsule, By Mouth, Daily at bedtime, # 180 capsule, Refills 1, Maintenance, 10/05/23 12:18:00 EST, Route to Pharmacy Electronically, [facility] 234[facility], 176.1, cm, 09/20/23 14:12:00 EST, Height, 146.1, kg, 08/29/22 15:57:00 EST, Dry Weight Start Date: 10/05/23 Status: Ordered Keppra 750 mg oral tablet 1 tablet = 750 mg, By Mouth, 2 times a day, # 60 tablet, 0 Refills, Maintenance, 12/01/23 11:42:00 EDT, Tablet, [facility]/pharmacy #[id number], Partial fill upon patient request if the prescription is for a schedule II opioid drug., 178, cm, 12/01/23 10:48:00 EDT... Start Date: 12/01/23 Stop Date: 12/31/23 Status: Ordered Metoprolol Succinate ER 100 mg oral tablet, extended release 1 tablet, By Mouth, Daily, # 90 tablet, 3 Refills, Maintenance, 07/09/23 13:03:00 EST, [facility], 176.1, cm, 06/25/23 8:54:00 EST, Height, 146.1, [...] 10/01/23 13:00:00 EST, Route to Pharmacy Electronically, [facility] 81549, 176.1, cm, 09/20/23 14:12:00 EST, Height, 146.1, kg, 08/29/22 15:57:00 EST, Dry Weight Start Date: 10/01/23 Status: Ordered Tadalafil (Eqv-Cialis) 20 mg oral tablet 1 tablet, By Mouth, Daily, PRN NEEDED FOR ERECTILE DYSFUNCTION, # 5 tablet, 2 Refills, Maintenance, 06/13/23 18:58:00 EST, [facility], 176.1, cm, 05/13/23 9:04:00 EDT, Height, 146.1, [...] Refills, Maintenance, 11/04/23 7:29:00 EDT, [facility], 176, cm, 10/25/23 12:56:00 EDT, Height, 146.1, kg, 08/29/22 15:57:00 EST, Dry Weight Start Date: 11/04/23 Status: Ordered valsartan 160 mg oral tablet 160 mg, 1, tablet, By Mouth, 2 times a day, # 180 tablet, Refills 4, Tot. Refills 4, Maintenance, 07/09/23 13:10:00 EST, Route to Pharmacy Electronically, [facility]/pharmacy #[id number], Partial fill upon patient request if the [...] Care Team Personnel Name: Alanis Harris Position: [facility] RN Supv Member Role: Primary Care Nurse Name: Brittani Anguiano RN Position: [facility] SN RN Member Role: Primary Care Nurse Name: Sherrell Yan RN Position: [facility] RN Member Role: Primary Care Nurse Name: Cortez Blunt MD Position: [facility] Physician - Primary Care Member Role: PCP Address: Address: [address] [place] [id number]- Name: Godwin Perkins RN Position: [facility] RN Member Role: Primary Care Nurse Name: Ron Babb RN Position: [facility] RN Member Role: Primary Care Nurse Care Team Related Persons Name: CECY NGUYEN Address: [address] [place] [address] Name: LEIDY NGUYEN JR Address: [address] [place] [address]
--- OUTSIDE RECORDS SUMMARY | 2024-05-03 22:12 | XMS_ITS | Continuity of Care Document ---
Author Organization [facility] Kevin Darrell Address [address] [place] [address]- Care Team Providers Care Gravel Truck Driver Name Role Phone Merlene BYRNE, Cortez Kendall Primary Care Physician Encounter [facility] [place] ACCT R [id number] Date(s): 03/02/24 - 04/01/24 [facility] Adult [address] [place] [address]- Allergies, Adverse Reactions, Alerts Substance Reaction Severity Status lisinopril cough Active penicillins Rash Active Immunizations Given and Recorded Vaccine Date Status Refusal Reason tetanus/diphtheria/pertussis, acel(Tdap) 1 12/20/17 Given 1Result Comment: [12/20/2017] [facility] 69494-466-16 Medications doxazosin 4 mg oral tablet 1 tablet, By Mouth, Daily, # 90 tablet, 3 Refills, Maintenance, 07/13/23 5:16:00 EST, [facility] 67923, 176.1, cm, 06/25/23 8:54:00 EST, Height, 146.1, kg, 08/29/22 15:57:00 EST, Dry Weight Start Date: 07/13/23 Status: Ordered Eliquis 5 mg oral tablet 1 tablet, By Mouth, 2 times a day, *STOP ASPIRIN*., # 60 tablet, 11 Refills, Maintenance, 07/13/23 5:16:00 EST, [facility] ST[facility] 34258, 176.1, cm, 06/25/23 8:54:00 EST, Height, 146.1, kg, 08/29/22 15:57:00 EST, Dry Weight Start Date: 07/13/23 Status: Ordered gabapentin 100 mg oral capsule 2, capsule, By Mouth, Daily at bedtime, # 180 capsule, Refills 1, Maintenance, 10/05/23 12:18:00 EST, Route to Pharmacy Electronically, [facility] 18736, 176.1, cm, 09/20/23 14:12:00 EST, Height, 146.1, kg, 08/29/22 15:57:00 EST, Dry Weight Start Date: 10/05/23 Status: Ordered Keppra 750 mg oral tablet 1 tablet = 750 mg, By Mouth, 2 times a day, # 60 tablet, 6 Refills, Maintenance, 01/10/24 8:04:00 EDT, Tablet, [facility]/pharmacy #[id number], Partial fill upon patient request if the prescription is for a schedule II opioid drug., 178, cm, 01/10/24 7:18:00 EDT,... Start Date: 01/10/24 Stop Date: 08/07/24 Status: Ordered Metoprolol Succinate ER 100 mg oral tablet, extended release 1 tablet, By Mouth, Daily, # 90 tablet, 3 Refills, Maintenance, 07/09/23 13:03:00 EST, [facility] 11877, 176.1, cm, 06/25/23 8:54:00 EST, Height, 146.1, kg, 08/29/22 15:57:00 EST, Dry Weight Start Date: 07/09/23 Status: Ordered omeprazole 20 mg oral enteric coated capsule 1 capsule = 20 mg, By Mouth, Daily, (buys OTC), Maintenance, 06/22/22 16:42:00 EST, EC Capsule, ; Start Date: 06/22/22 Status: Ordered pyridoxine 50 mg oral tablet 50 mg, 1, tablet, By Mouth, Daily, for 30 days, # 30 tablet, Refills 6, Tot. Refills 6, Acute 08/07/24 8:07:00 EST, 01/10/24 8:07:00 EDT, Route to Pharmacy Electronically, [facility]/pharmacy #[id number], Partialfill upon patient request if the prescription is fo... Start Date: 01/10/24 Stop Date: 08/07/24 Status: Ordered spironolactone 25 mg oral tablet 1, tablet, By Mouth, Daily, # 90 tablet, Refills 1, Maintenance, 10/01/23 13:00:00 EST, Route to Pharmacy Electronically, [facility], 176.1, cm, 09/20/23 14:12:00 EST, Height, 146.1, kg, 08/29/22 15:57:00 EST, Dry Weight Start Date: 10/01/23 Status: Ordered Tadalafil (Eqv-Cialis) 20 mg oral tablet 1 tablet, By Mouth, Daily, PRN NEEDED FOR ERECTILE DYSFUNCTION, # 5 tablet, 2 Refills, Maintenance, 01/24/24 11:18:00 EDT, [facility], 178, cm, 01/20/24 12:42:00 EDT, Height, 159, kg, 11/30/23 18:35:00 EDT, Dry Weight Start Date: 01/24/24 Status: Ordered torsemide 20 mg oral tablet 1 tablet, By Mouth, 2 times a day, # 180 tablet, 3 Refills, Maintenance, 11/04/23 7:29:00 EDT, [facility] 81111, 176, cm, 10/25/23 12:56:00 EDT, Height, 146.1, kg, 08/29/22 15:57:00 EST, Dry Weight Start Date: 11/04/23 Status: Ordered valsartan 160 mg oral tablet 160 mg, 1, tablet, By Mouth, 2 times a day, # 180 tablet, Refills 4, Tot. Refills 4, Maintenance, 07/09/23 13:10:00 EST, Route to Pharmacy Electronically, [facility]/pharmacy #[id number], Partial fill upon patient request if the [...] Care Team Personnel Name: Alanis Harris Position: [facility] RN Supv Member Role: Primary Care Nurse Name: Brittani Anguiano RN Position: [facility] SN RN Member Role: Primary Care Nurse Name: Sherrell Yan RN Position: S RN Member Role: Primary Care Nurse Name: Cortez Blunt MD Position: [facility] Physician - Primary Care Member Role: PCP Address: Address: [address] [place] [id number] Name: Godwin Perkins RN Position: [facility] RN Member Role: Primary Care Nurse Name: Ron Babb RN Position: [facility] RN Member Role: Primary Care Nurse Care Team Related Persons Name: CECY NGUYEN Address: home [address] [place] [address] Name: LEIDY NGUYEN JR Address: home [address] [place] [address]
--- OUTSIDE RECORDS SUMMARY | 2024-05-03 22:12 | XMS_ITS | Continuity of Care Document ---
Author Organization [facility] [place] Darrell lt Address [address] [place] [address]- Care Team Providers Care Flooring Professional Name Role Phone Cortez Blunt MD Primary Care Physician Encounter [facility] Date(s): 08/15/21 - 08/22/21 [facility] Adult [address] [place] [address]- Attending Physician: Cortez Blunt MD Allergies, Adverse Reactions, Alerts Substance Reaction Severity Status lisinopril Active penicillins Rash Active Immunizations Given and Recorded Vaccine Date Status Refusal Reason tetanus/diphtheria/pertussis, acel(Tdap) 1 12/20/17 Given Not Given Vaccine Date Status Refusal Reason Influenza Virus Vaccine (oldterm) 06/21/19 Not Giv en Patient Refuses 1Result Comment: [12/20/2017] [facility] 93604-979-13 Medications amLODIPine 10 mg oral tablet 1 tablet, By Mouth, Daily, # 30 tablet, 2 Refills, Maintenance, 07/23/21 12:04:00 EST, [facility]/pharmacy#[id number], 176.4, cm, 04/07/21 7:14:00 EDT, Height Start Date: 07/23/21 Status: Ordered aspirin 81 mg oral tablet 1 tablet = 81 mg, By Mouth, Daily, # 30 tablet, 0 Refills, Maintenance, 03/11/17 15:49:45, Tablet Start Date: 03/11/17 Status: Ordered doxazosin 4 mg oral tablet 1 tablet, By Mouth, Daily, # 90 tablet, 0 Refills, [facility], 176.4, cm, 04/07/21 7:14:00 EDT, Height Start Date: 06/17/21 Status: Ordered gabapentin 100 mg oral capsule 1, capsule, By Mouth, Daily at bedtime, # 30 capsule, Refills 2, Route to Pharmacy Electronically, [facility], 176.4, cm, 04/07/21 7:14:00 EDT, Height Start Date: 07/24/21 Status: Ordered irbesartan 150 mg oral tablet 1 tablet, By Mouth, Daily, # 90 tablet, 1 Refills, [facility], 176.4, cm, 04/07/21 7:14:00 EDT, Height Start Date: 06/18/21 Status: Ordered Tadalafil (Eqv-Cialis) 20 mg oral tablet 1 tablet, By Mouth, Daily, PRN NEEDED FOR ERECTILE DYSFUNCTION, # 5 tablet, 2 Refills, Maintenance, 08/22/21 17:22:00 EST, [id number], 176.4, cm, 08/15/21 9:23:00 EST, Height Start Date: 08/22/21 Status: Ordered Problem List Condition Effective Dates Status Health Status Inform ant Benign essential hypertension(Confirmed) Active Sleep related hypoventilation/hypoxemia in other disease(Confirmed) Active Diverticulosis(Confirmed) 1 Active Hemorrhoids(Confirmed) Active Bilateral knee pain(Confirmed) Active Migraine(Confirmed) Active Obesity(Confirmed) Active JR (obstructive sleep apnea)(Confirmed) Active Severe obesity(Confirmed) Active 1PER 03/02/14 COLONOSCOPY-DR ANABELLA CONCEPCION Vital Signs Most recent to oldest [Reference Range]: 1 2 Height 176.4 cm (08/15/21 9:23 AM) 176.4 cm (08/15/21 8:42 AM) Weight 163.63 kg (08/15/21 8:42 AM) Oxygen Saturation [94-100 %] 99 % (08/15/21 8:42 AM) Pulse Rate [55-90 bpm] 87 bpm (08/15/21 8:42 AM) Body Mass Index [18.5-24.99] 52.59 *>HHI* (08/15/21 8:42 AM) Blood Pressure [90-138/55-84 mm Hg] 150/ 74mm Hg *H* (08/15/21 9:23 AM) 152/77mm Hg *H* (08/15/21 8:42 AM) Blood pressure sites Arm, left (08/15/21 8:42 AM) Social History Social History Type Response Smoking Status Never smoker entered on: 03/11/17 Sex
--- OUTSIDE RECORDS SUMMARY | 2024-05-03 22:12 | XMS_ITS | Continuity of Care Document ---
Author Organization [facility] [place] Darrell lt Address [address] [place] [address]- Care Team Providers Care Pets Salesperson Name Role Phone Merlene BYRNE, Cortez Kendall Primary Care Physician [place] [facility] [place] Date(s): 03/29/20 - 04/28/20 [facility] [place] Adult [address] [place] [address]- [facility] Allergies, Adverse Reactions, Alerts Substance Reaction Severity Status penicillins Rash Active Immunizations Given and Recorded Vaccine Date Status Refusal Reason tetanus/diphtheria/pertussis, acel(Tdap) 1 12/20/17 Given Not Given Vaccine Date Status Refusal Reason Influenza Virus Vaccine (oldterm) 06/21/19 Not Giv en Patient Refuses 1Result Comment: [12/20/2017] [facility] 70476-584-21 Medications amLODIPine 10 mg oral tablet 10 mg, 1, tablet, By Mouth, Daily, # 30 tablet, Refills 5, Tot. Refills 5, Soft Stop, 03/29/20 15:08:00 EDT, Route to Pharmacy Electronically, [facility]/pharmacy #[id number], 176.4, cm, 10/19/19 6:57:00 EDT, Height Start Date: 03/29/20 Status: Ordered aspirin 81 mg oral tablet 1 tablet = 81 mg, By Mouth, Daily, # 30 tablet, 0 Refills, Maintenance, 03/11/17 15:49:45, Tablet Start Date: 03/11/17 Status: Ordered doxazosin 4 mg oral tablet 1 tablet, By Mouth, Daily, # 30 tablet, 2 Refills, Maintenance, 02/19/20 16:43:00 EDT, [facility]/pharmacy#[id number], 176.4, cm, 10/19/19 6:57:00 EDT, Height Start Date: 02/19/20 Status: Ordered furosemide 20 mg oral tablet 20 mg, 1, tablet, By Mouth, Daily, # 30 tablet, Refills 2, Tot. Refills 2, Maintenance, 02/19/20 16:43:00 EDT, Route to Pharmacy Electronically, [facility]/pharmacy #[id number], 176.4, cm, 10/19/19 6:57:00 EDT, Height Start Date: 02/19/20 Status: Ordered irbesartan 150 mg oral tablet 1 tablet, By Mouth, Daily, # 30 tablet, 2 Refills, Maintenance, 02/19/20 16:43:00 EDT, [facility]/pharmacy#[id number], 176.4, cm, 10/19/19 6:57:00 EDT, Height Start Date: 02/19/20 Status: Ordered Problem List Condition Effective Dates [...]
--- OUTSIDE RECORDS SUMMARY | 2024-05-03 22:12 | XMS_ITS | Continuity of Care Document ---
Author Organization [facility] Darrell lt Address [address] [place] [address]- Care Team Providers Care Welding Equipment Sales Representative Name Role Phone Cortez Blunt MD Primary Care Physician [phone] [facility] [place] Date(s): 10/25/23 - 11/01/23 [facility] Adult [address] [place] [address]- Encounter Diagnosis Well adult exam(Discharge Diagnosis) - 10/25/23 Atrial flutter(Discharge Diagnosis) - 10/25/23 Benign essential hypertension(Discharge Diagnosis) - 10/25/23 Paresthesia of left lower extremity(Discharge Diagnosis) - 10/25/23 JR (obstructive sleep apnea)(Discharge Diagnosis) - 10/25/23 Attending Physician: Cortez Blunt MD Allergies, Adverse Reactions, Alerts Substance Reaction Severity Status lisinopril cough Active penicillins Rash Active Immunizations Given and Recorded Vaccine Date Status Refusal Reason tetanus/diphtheria/pertussis, acel(Tdap) 1 12/20/17 Given 1Result Comment: [12/20/2017] [facility] 71638-747-96 Medications aspirin 81 mg oral tablet 1 tablet = 81 mg, By Mouth, Daily, # 30 tablet, 0 Refills, Maintenance, 03/11/17 15:49:45, Tablet Start Date: 03/11/17 Status: Ordered doxazosin 4 mg oral tablet 1 tablet, By Mouth, Daily, # 90 tablet, 3 Refills, Maintenance, 07/13/23 5:16:00 EST, [facility] STORE 65339, 176.1, cm, 06/25/23 8:54:00 EST, Height, 146.1, kg, 08/29/22 15:57:00 EST, Dry Weight Start Date: 07/13/23 Status: Ordered Eliquis 5 mg oral tablet 1 tablet, By Mouth, 2 times a day, *STOP ASPIRIN*., # 60 tablet, 11 Refills, Maintenance, 07/13/23 5:16:00 EST, [facility] 52983, 176.1, cm, 06/25/23 8:54:00 EST, Height, 146.1, kg, 08/29/22 15:57:00 EST, Dry Weight Start Date: 07/13/23 Status: Ordered gabapentin 100 mg oral capsule 2, capsule, By Mouth, Daily at bedtime, # 180 capsule, Refills 1, Maintenance, 10/05/23 12:18:00 EST, Route to Pharmacy Electronically, [facility] 98602, 176.1, cm, 09/20/23 14:12:00 EST, Height, 146.1, kg, 08/29/22 15:57:00 EST, Dry Weight Start Date: 10/05/23 Status: Ordered LORazepam 2 mg oral tablet 1 tablet = 2 mg, By Mouth, Once, one hour prior to procedure, # 1 tablet, 0 Refills, Soft Stop, 07/22/23 6:37:00 EST, Tablet, [facility]/pharmacy #[id number], Partial fill upon patient request if the prescriptionis for a schedule II opioid drug., 176.1, cm, 06/25... Start Date: 07/22/23 Status: Ordered Metoprolol Succinate ER 100 mg oral tablet, extended release 1 tablet, By Mouth, Daily, # 90 tablet, 3 Refills, Maintenance, 07/09/23 13:03:00 EST, [facility] STORE 14620, 176.1, cm, 06/25/23 8:54:00 EST, Height, 146.1, [...] EST, Route to Pharmacy Electronically, [facility], 176.1, cm, 09/20/23 14:12:00 EST, Height, 146.1, kg, 08/29/22 15:57:00 EST, Dry Weight Start Date: 10/01/23 Status: Ordered Tadalafil (Eqv-Cialis) 20 mg oral tablet 1 tablet, By Mouth, Daily, PRN NEEDED FOR ERECTILE DYSFUNCTION, # 5 tablet, 2 Refills, Maintenance, 06/13/23 18:58:00 EST, [facility], 176.1, cm, 05/13/23 9:04:00 EDT, Height, 146.1, [...] Maintenance, 12/17/22 6:36:00 EDT, Tablet, [facility]/pharmacy #[id number], Partial fill upon patient request if the prescription is for a schedule II opioid drug., 176.1, cm, 10/21/22 11:09:00 ED... Start Date: 12/17/22 Stop Date: 12/12/23 Status: Ordered valsartan 160 mg oral tablet 160 mg, 1, tablet, By Mouth, 2 times a day, # 180 tablet, Refills 4, Tot. Refills 4, Maintenance, 07/09/23 13:10:00 EST, Route to Pharmacy Electronically, [facility]/pharmacy #[id number], Partial fill upon patient request if [...] Effective Dates Health Status Clinical Service Informant Well adult exam Discharge Diagnosis 10/25/23 Atrial flutter Discharge Diagnosis 10/25/23 Benign essential hypertension Discharge Diagnosis 10/25/23 Paresthesia of left lower extremity Discharge Diagnosis 10/25/23 JR (obstructive sleep apnea) Discharge Diagnosis 10/25/23 Vital Signs Most recent to oldest [Reference Range]: 1 2 Height 176.0 cm (10/25/23 12:56 PM) 176.0 cm (10/25/23 12:51 PM) Weight 161.7 kg (10/25/23 12:51 PM) Oxygen Saturation [94-100 %] 97 % (10/25/23 12:51 PM) Pulse Rate [55-90 bpm] 59 bpm (10/25/23 12:51 PM) Body Mass Index [18.5-24.99 kg/m2] 52.2 kg/m2 *>HHI* (10/25/23 12:51 PM) Blood Pressure [90-138/55-84 mm Hg] 128/ 74mm Hg (10/25/23 12:56 PM) 143/77mm Hg *H* (10/25/23 12:51 PM) Mode of Delivery (Oxygen) Room air (10/25/23 12:51 PM) Blood pressure sites Arm, right (10/25/23 12:56 PM) Arm, right (10/25/23 12:51 PM) Weight Obtained Via Standing scale (10/25/23 12:51 PM) Social History Social History Type Response Smoking Status Never smoker entered on: 03/11/17 Sex Patient Care team information Care Team Personnel Name: Alanis Harris Position: [facility] RN Supv Member Role: Primary Care Nurse Name: Brittani Anguiano RN Position: [facility] RN Member Role: Primary Care Nurse Name: Cortez Blunt MD Position: [facility] Physician - Primary Care Member Role: PCP Address: Address: [address] [place] [address]- [place] Name: Ron Babb RN Position: S RN Member Role: Primary Care Nurse Care Team Related Persons Name: CECY NGUYEN Address: [address] [place] [address] Name: LEIDY NGUYEN JR Address: [address] [place] [address]
--- OUTSIDE RECORDS SUMMARY | 2024-05-03 22:12 | XMS_ITS | Continuity of Care Document ---
Author Organization [facility] Kevin Darrell Address [address] [place] [address]- Care Team Providers Care Plate Inspector Name Role Phone Merlene BYRNE, Cortez Kendall Primary Care Physician [place] [facility] [place]22 - 06/20/22 [facility] Adult [address] [place] [address]- Allergies, Adverse Reactions, Alerts Substance Reaction Severity Status lisinopril Active penicillins Rash Active Immunizations Given and Recorded Vaccine Date Status Refusal Reason tetanus/diphtheria/pertussis, acel(Tdap) 1 12/20/17 Given Not Given Vaccine Date Status Refusal Reason Influenza Virus Vaccine (oldterm) 06/21/19 Not Giv en Patient Refuses 1Result Comment: [12/20/2017] [facility] 12303-081-72 Medications amLODIPine 10 mg oral tablet 1 tablet, By Mouth, Daily, # 90 tablet, 1 Refills, Maintenance, 04/12/22 10:29:00 EDT, [facility] STORE 15126, 176.4, cm, 02/02/22 11:18:00 EDT, Height Start Date: 04/12/22 Status: Ordered aspirin 81 mg oral tablet 1 tablet = 81 mg, By Mouth, Daily, # 30 tablet, 0 Refills, Maintenance, 03/11/17 15:49:45, Tablet Start Date: 03/11/17 Status: Ordered carvedilol 3.125 mg oral tablet 3.125 mg, 1, tablet, By Mouth, 2 times a day, # 60 tablet, Refills 2, Tot. Refills 2, Maintenance, 06/19/22 10:16:00 EST, Route to Pharmacy Electronically, [facility]/pharmacy #[id number], Partial fill upon patient request if the prescription is for a schedule II... Start Date: 06/19/22 Status: Ordered doxazosin 4 mg oral tablet 1 tablet, By Mouth, Daily, # 90 tablet, 1 Refills, [facility], 176.4, cm, 08/15/21 9:23:00 EST, Height Start Date: 01/17/22 Status: Ordered Eliquis 5 mg oral tablet 1 tablet = 5 mg, By Mouth, 2 times a day, Stop ASA, # 60 tablet, 5 Refills, Maintenance, 06/19/22 10:17:00 EST, Tablet, [facility]/pharmacy #2071, Partial fill upon patient request if the prescription is for a schedule II opioid drug., 176.4, cm, 06/19/22 9:... Start Date: 06/19/22 Status: Ordered gabapentin 100 mg oral capsule 2, capsule, By Mouth, Daily at bedtime, # 60 capsule, Refills 2, Maintenance, 06/18/22 11:52:00 EST, Route to Pharmacy Electronically, [facility] 84478, 176.4, cm, 05/15/22 11:35:00 EDT, Height Start Date: 06/18/22 Status: Ordered Tadalafil (Eqv-Cialis) 20 mg oral tablet 1 tablet, By Mouth, Daily, PRN NEEDED FOR ERECTILE DYSFUNCTION, # 5 tablet, 2 Refills, Maintenance, 04/12/22 10:29:00 EDT, [facility], 176.4, cm, 02/02/22 11:18:00 EDT, Height Start [...] Care team information Care Team Personnel Name: Cortez Blunt MD Position: S Primary Care Physician Member Role: PCP Address: Address: [address] [place] [id number]- Care Team Related Persons Name: CECY NGUYEN Address: home [address] [place] [address]
--- OUTSIDE RECORDS SUMMARY | 2024-05-03 22:12 | XMS_ITS | Continuity of Care Document ---
Author Organization [facility] Kevin Darrell Address [address] [place] [address]- Care Team Providers Care Metal Lather Name Role Phone Merlene BYRNE, Cortez Kendall Primary Care Physician Encounter [facility] [place] Date(s): 05/21/23 - 06/20/23 [facility] [place] Adult [address] [place] [address]- Allergies, Adverse Reactions, Alerts Substance Reaction Severity Status lisinopril cough Active penicillins Rash Active Immunizations Given and Recorded Vaccine Date Status Refusal Reason tetanus/diphtheria/pertussis, acel(Tdap) 1 12/20/17 Given 1Result Comment: [12/20/2017] [facility] 93214-082-71 Medications Acetaminophen Daily, 0 Refills, Maintenance, 09/10/22 [...] Refills, Maintenance, 12/17/22 11:10:00 EDT, [facility], 176.1, cm, 10/21/22 11:09:00 EDT, Height, 146.1, kg, 08/29/22 15:57:00 EST, Dry Weight Start Date: 12/17/22 Status: Ordered Eliquis 5 mg oral tablet 1 tablet = 5 mg, By Mouth, 2 times a day, # 60 tablet, 5 Refills, Maintenance, 07/01/22 9:02:00 EST, Tablet, [facility]/pharmacy #[id number], Partial fill upon patient request if the prescription is for a schedule II opioid drug., 178, cm, 07/01/22 7:55:00 EST, He... Start Date: 07/01/22 Status: Ordered gabapentin 100 mg oral capsule 2, capsule, By Mouth, Daily at bedtime, # 180 capsule, Refills 1, Tot. Refills 1, Maintenance, 05/10/23 13:26:00 EDT, Route to Pharmacy Electronically, [facility]/pharmacy #207, 176.1, cm, 05/10/23 13:05:00 EDT, Height, 146.1, kg, 08/29/22 15:57:00 EST, Dry... Start Date: 05/10/23 Status: Ordered LORazepam 2 mg oral tablet 1 tablet = 2 mg, By Mouth, Once, one hour prior to procedure, # 1 tablet, 0 Refills, Soft Stop, 06/10/23 5:16:00 EDT, Tablet, [facility]/pharmacy #[id number], Partial fill upon patient request if the prescriptionis for a schedule II opioid drug., 176.1, cm, 05/13... Start Date: 06/10/23 Status: Ordered Metoprolol Succinate ER 100 mg oral tablet, extended release See Instructions, TAKE 1 TABLET BY MOUTH EVERY DAY, # 90 tablet, 1 Refills, Maintenance, 11/09/22 9:12:00 EDT, [facility]/pharmacy #207, 176.1, cm, 10/21/22 11:09:00 [...] 06/14/23 8:05:00 EST, Route to Pharmacy Electronically, [facility] STORE 60259, 176.1, cm, 05/13/23 9:04:00 EDT, Height, 146.1, kg, 08/29/22 15:57:00 EST, Dry Weight Start Date: 06/14/23 Status: Ordered Tadalafil (Eqv-Cialis) 20 mg oral tablet 1 tablet, By Mouth, Daily, PRN NEEDED FOR ERECTILE DYSFUNCTION, # 5 tablet, 2 Refills, Maintenance, 06/13/23 18:58:00 EST, [facility], 176.1, cm, 05/13/23 9:04:00 EDT, Height, 146.1, [...] 3 Refills, Maintenance, 12/17/22 6:36:00 EDT, Tablet, [facility]/pharmacy #[id number], Partial fill upon patient request if the prescription is for a schedule II opioid drug., 176.1, cm, 10/21/22 11:09:00 ED... Start Date: 12/17/22 Stop Date: 12/12/23 Status: Ordered valsartan 160 mg oral tablet 160 mg, 1, tablet, By Mouth, 2 times a day, # 180 tablet, Refills 4, Tot. Refills 4, Maintenance, 10/19/22 13:24:00 EDT, Route to Pharmacy Electronically, [facility]/pharmacy #[id number], Partial fill upon [...] Care Team Personnel Name: Alanis Harris Position: [facility] RN Supv Member Role: Primary Care Nurse Name: Brittani Anguiano RN Position: [facility] SN RN Member Role: Primary Care Nurse Name: Cortez Blunt MD Position: [facility] Physician - Primary Care Member Role: PCP Address: Address: [address] [place] [id number]- Name: Ron Babb RN Position: [facility] RN Member Role: Primary Care Nurse Care Team Related Persons Name: CECY NGUYEN Address: [address] [place] [address] Name: LEIDY NGUYEN JR Address: [address] [place] [address]
--- OUTSIDE RECORDS SUMMARY | 2024-05-03 22:12 | XMS_ITS | Continuity of Care Document ---
Author Organization [facility] Address [address] [place] [address]- Care Team Providers Care Jack Frame Tender Name Role Phone Merlene BYRNE, Cortez Kendall Primary Care Physician Encounter [facility] Date(s): 08/04/22 - 09/03/22 [facility] [address] [place] [address]- [place] Allergies, Adverse Reactions, Alerts Substance Reaction Severity Status lisinopril Active penicillins Rash Active Immunizations Given and Recorded Vaccine Date Status Refusal Reason tetanus/diphtheria/pertussis, acel(Tdap) 1 12/20/17 Given Not Given Vaccine Date Status Refusal Reason Influenza Virus Vaccine (oldterm) 06/21/19 Not Giv en Patient Refuses 1Result Comment: [12/20/2017] [facility] 85463-295-00 Medications amiodarone 400 mg oral tablet 1 [...] 5 Refills, Maintenance, 07/01/22 9:02:00 EST, Tablet, [facility]/pharmacy #[id number], Partial fill upon [...] 06/18/22 11:52:00 EST, Route to Pharmacy Electronically, [facility], 176.4, cm, 05/15/22 11:35:00 EDT, Height Start Date: 06/18/22 Status: Ordered metoprolol succinate 100 mg oral capsule, extended release 1 capsule = 100 mg, By Mouth, Daily, # 30 capsule, 5 Refills, Maintenance, 08/12/22 10:28:00 EST, ER Capsule, [facility]/pharmacy #2071, Partial fill upon [...] tablet, 2 Refills, Maintenance, 08/11/22 9:25:00 EST, [facility], 178, cm, 08/07/22 15:14:00 EST, Height, 147, kg, 08/04/2217:07:00 EST, Dry Weight Start Date: 08/11/22 Status: Ordered valsartan 40 mg oral tablet 40 mg, 1, tablet, By Mouth, 2 times a day, # 60 tablet, Refills 0, Tot. Refills 0, Maintenance, 08/07/22 16:11:00 EST, Route to Pharmacy Electronically, [facility], Partial fill upon patient [...] Team Personnel Name: Alanis Harris Position: [facility] RN Supv Member Role: Primary Care Nurse Name: Brittani Anguiano RN Position: S RN Member Role: Primary Care Nurse Name: Cortez Blunt MD Position: [facility] Primary Care Physician Member Role: PCP Address: Address: [address] [place] [address] Name: Edna Kelly RN Position: S RN Member Role: Primary Care Nurse Name: Ron Babb RN Position: S RN Member Role: Primary Care Nurse Care Team Related Persons Name: CECY NGUYEN Address: home [address] [place] [address] Name: LEIDY NGUYEN JR Address: home [address] [place] [address]
--- OUTSIDE RECORDS SUMMARY | 2024-05-03 22:12 | XMS_ITS | Continuity of Care Document ---
Author Organization [facility] Address [address] [place] [address]- Care Team Providers Care Tabulating Machine Mechanic Name Role Phone Merlene BYRNE, Cortez Kendall Primary Care Physician [place] [facility] Date(s): 07/22/22 - 08/21/22 [facility] [address] [place] [address]- [place] Allergies, Adverse Reactions, Alerts Substance Reaction Severity Status lisinopril Active penicillins Rash Active Immunizations Given and Recorded Vaccine Date Status Refusal Reason tetanus/diphtheria/pertussis, acel(Tdap) 1 12/20/17 Given Not Given Vaccine Date Status Refusal Reason Influenza Virus Vaccine (oldterm) 06/21/19 Not Giv en Patient Refuses 1Result Comment: [12/20/2017] [facility] 64848-416-03 Medications aspirin 81 mg oral tablet 1 [...] 06/18/22 11:52:00 EST, Route to Pharmacy Electronically, [facility] 22531, 176.4, cm, 05/15/22 11:35:00 EDT, Height Start Date: 06/18/22 Status: Ordered Lasix 40 mg oral tablet 40 mg, 1, tablet, By Mouth, Daily, # 30 tablet, Refills 5, Tot. Refills 5, Maintenance, 07/28/22 10:21:00 EST, Route to Pharmacy Electronically, [facility]/pharmacy #[id number], Partial fill upon patient request if the prescription is for a schedule II opioid drug... Start Date: 07/28/22 Stop Date: 01/24/23 Status: Ordered metoprolol succinate 100 mg oral capsule, extended release 1 capsule = 100 mg, By Mouth, Daily, # 30 capsule, 5 Refills, Maintenance, 08/12/22 10:28:00 EST, ER Capsule, [facility]/pharmacy #[id number], Partial fill upon patient [...] Refills, Maintenance, 08/11/22 9:25:00 EST, [facility], 178, cm, 08/07/22 15:14:00 EST, Height, 147, kg, 08/04/2217:07:00 EST, Dry Weight Start Date: 08/11/22 Status: Ordered valsartan 40 mg oral tablet 40 mg, 1, tablet, By Mouth, 2 times a day, # 60 tablet, Refills 0, Tot. Refills 0, Maintenance, 08/07/22 16:11:00 EST, Route to Pharmacy Electronically, [facility], Partial fill upon patient request if [...] Team Personnel Name: Brittani Anguiano RN Position: [facility] RN Member Role: Primary Care Nurse Name: Cortez Blunt MD Position: [facility] Primary Care Physician Member Role: PCP Address: Address: [address] [place] [address]- Name: Edna Kelly RN Position: S RN Member Role: Primary Care Nurse Name: Ron Babb RN Position: S RN Member Role: Primary Care Nurse Care Team Related Persons Name: CECY NGUYEN Address: home [address] [place] [address] Name: LEIDY NGUYEN JR Address: home [address] [place] [address]
--- OUTSIDE RECORDS SUMMARY | 2024-05-03 22:12 | XMS_ITS | Continuity of Care Document ---
Author Organization [facility] Address [address] [place] [address]- Care Team Providers Care Brass Pickler Name Role Phone Merlene BYRNE, Cortez Kendall Primary Care Physician [phone] Encounter [facility] Date(s): 08/27/22 - 09/26/22 [facility] [address] [place] [address]- [place] Allergies, Adverse Reactions, Alerts Substance Reaction Severity Status lisinopril Active penicillins Rash Active Immunizations Given and Recorded Vaccine Date Status Refusal Reason tetanus/diphtheria/pertussis, acel(Tdap) 1 12/20/17 Given Not Given Vaccine Date Status Refusal Reason Influenza Virus Vaccine (oldterm) 06/21/19 Not Giv en Patient Refuses 1Result Comment: [12/20/2017] [facility] 44316-622-22 Medications Acetaminophen Daily, 0 Refills, Maintenance, 09/10/22 8:02:00 EST, Partial fill upon patient request if the prescription is for a schedule II opioid drug. Start Date: 09/10/22 Status: Ordered amiodarone 200 mg oral tablet 200 mg, 1, tablet, By Mouth, Daily, # 30 tablet, Refills 0, Tot. Refills 0, Maintenance, 09/05/22 9:34:00 EST, Route to Pharmacy Electronically, [facility], Partial fill upon patient [...] 0 Refills, Maintenance, 09/05/22 9:49:00 EST, Tablet, [facility], Partial fill upon patient request if the prescription is for a scheduleII opioid drug., 177.8, cm, 09/05/22 8:50:00 EST, H... Start Date: 09/05/22 Status: Ordered doxazosin 4 mg oral tablet 1 tablet, By Mouth, Daily, # 90 tablet, 1 Refills, Maintenance, 07/05/22 16:17:00 EST, [facility]/pharmacy#2071, 178, cm, 07/01/22 7:55:00 EST, Height Start Date: 07/05/22 Status: Ordered Eliquis 5 mg oral tablet 1 tablet = 5 mg, By Mouth, 2 times a day, # 60 tablet, 5 Refills, Maintenance, 07/01/22 9:02:00 EST, Tablet[facility] Partial fill upon patient request if the prescription is for a schedule II opioid drug., 178, cm, 07/01/22 7:55:00 EST, He... Start Date: 07/01/22 Status: Ordered gabapentin 100 mg oral capsule 2, capsule, By Mouth, Daily at bedtime, # 60 capsule, Refills 2, Maintenance, 06/18/22 11:52:00 EST, Route to Pharmacy Electronically, [facility] 66672, 176.4, cm, 05/15/22 11:35:00 EDT, Height Start Date: 06/18/22 Status: Ordered metoprolol succinate 100 mg oral capsule, extended release 1 capsule = 100 mg, By Mouth, Daily, # 30 capsule, 0 Refills, Maintenance, 09/05/22 9:33:00 EST, ERCapsule, [facility], Partial fill upon patient [...] 09/05/22 9:32:00 EST, Route to Pharmacy Electronically, [facility], Partial fill upon patient request if the prescription is for a schedule II opioid... Start Date: 09/05/22 Status: Ordered Tadalafil (Eqv-Cialis) 20 mg oral tablet 1 tablet, By Mouth, Daily, PRN NEEDED FOR ERECTILE DYSFUNCTION, # 5 tablet, 2 Refills, Maintenance, 08/11/22 9:25:00 EST, [email or web address] 466[facility], 178, cm, 08/07/22 15:14:00 EST, Height, 147, kg, 08/04/2217:07:00 EST, Dry Weight Start Date: 08/11/22 Status: Ordered torsemide 20 mg oral tablet 1 tablet = 20 mg, By Mouth, 2 times a day, # 60 tablet, 0 Refills, Maintenance, 09/05/22 9:32:00 EST, Tablet, [facility], Partial fill upon patient request if the prescription is for a schedule II opioid drug., 177.8, cm, 09/05/22 8:50:0... Start Date: 09/05/22 Status: Ordered valsartan 40 mg oral tablet 80 mg, 2, tablet, By Mouth, 2 times a day, # 120 tablet, Refills 0, Tot. Refills 0, Maintenance, 09/05/22 9:33:00 EST, Route to Pharmacy Electronically, [facility], Partial fill upon patient request if [...] Care Nurse Name: Cortez Blunt MD Position: [facility] Primary Care Physician Member Role: PCP Address: Address: [address] [place] [id number] Name: Edna Kelly RN Position: S RN Member Role: Primary Care Nurse Name: Ron Babb RN Position: S RN Member Role: Primary Care Nurse Care Team Related Persons Name: CECY NGUYEN Address: home [address] [place] [address] Name: LEIDY NGUYEN JR Address: home [address] [place] [address]
--- OUTSIDE RECORDS SUMMARY | 2024-05-03 22:12 | XMS_ITS | Continuity of Care Document ---
Author Organization [facility] Address [address] [place] [address]- Care Team Providers Care Nuclear Weapons Custodian Name Role Phone Merlene BYRNE, Cortez Kendall Primary Care Physician Encounter [place] Date(s): 07/12/23 - 08/11/23 [facility] [address] [place] [address]- Allergies, Adverse Reactions, Alerts Substance Reaction Severity Status lisinopril cough Active penicillins Rash Active Immunizations Given and Recorded Vaccine Date Status Refusal Reason tetanus/diphtheria/pertussis, acel(Tdap) 1 12/20/17 Given 1Result Comment: [12/20/2017] [facility] 45203-002-78 Medications Acetaminophen Daily, 0 Refills, Maintenance, 09/10/22 [...] tablet, 3 Refills, Maintenance, 07/13/23 5:16:00 EST, [facility] 90141, 176.1, cm, 06/25/23 8:54:00 EST, Height, 146.1, kg, 08/29/22 15:57:00 EST, Dry Weight Start Date: 07/13/23 Status: Ordered Eliquis 5 mg oral tablet 1 tablet, By Mouth, 2 times a day, *STOP ASPIRIN*., # 60 tablet, 11 Refills, Maintenance, 07/13/23 5:16:00 EST, [facility] 38171, 176.1, cm, 06/25/23 8:54:00 EST, Height, 146.1, kg, 08/29/22 15:57:00 EST, Dry Weight Start Date: 07/13/23 Status: Ordered Farxiga 10 mg oral tablet 1 tablet = 10 mg, By Mouth, Daily, # 90 tablet, 4 Refills, Maintenance, 06/25/23 9:09:00 EST, Tablet, [facility]/pharmacy #2071, Partial fill upon patient request if the prescription is for a schedule II opioid drug., 176.1, cm, 06/25/23 8:54:00 EST, Height,... Start Date: 06/25/23 Stop Date: 09/17/24 Status: Ordered gabapentin 100 mg oral capsule 2, capsule, By Mouth, Daily at bedtime, # 180 capsule, Refills 1, Tot. Refills 1, Maintenance, 05/10/23 13:26:00 EDT, Route to Pharmacy Electronically, [facility]/pharmacy #2071, 176.1, cm, 05/10/23 13:05:00 EDT, Height, 146.1, kg, 08/29/22 15:57:00 EST, Dry... Start Date: 05/10/23 Status: Ordered LORazepam 2 mg oral tablet 1 tablet = 2 mg, By Mouth, Once, one hour prior to procedure, # 1 tablet, 0 Refills, Soft Stop, 07/22/23 6:37:00 EST, Tablet, [facility]/pharmacy #2071, Partial fill upon patient request if the prescriptionis for a schedule II opioid drug., 176.1, cm, 06/25... Start Date: 07/22/23 Status: Ordered Metoprolol Succinate ER 100 mg oral tablet, extended release 1 tablet, By Mouth, Daily, # 90 tablet, 3 Refills, Maintenance, 07/09/23 13:03:00 EST, [facility] 07095, 176.1, cm, 06/25/23 8:54:00 EST, Height, 146.1, [...] 06/14/23 8:05:00 EST, Route to Pharmacy Electronically, [facility] 60208, 176.1, cm, 05/13/23 9:04:00 EDT, Height, 146.1, kg, 08/29/22 15:57:00 EST, Dry Weight Start Date: 06/14/23 Status: Ordered Tadalafil (Eqv-Cialis) 20 mg oral tablet 1 tablet, By Mouth, Daily, PRN NEEDED FOR ERECTILE DYSFUNCTION, # 5 tablet, 2 Refills, Maintenance, 06/13/23 18:58:00 EST, [facility] 10344, 176.1, cm, 05/13/23 9:04:00 EDT, Height, 146.1, [...] 3 Refills, Maintenance, 12/17/22 6:36:00 EDT, Tablet, [facility]/pharmacy #2071, Partial fill upon patient request if the prescription is for a schedule II opioid drug., 176.1, cm, 10/21/22 11:09:00 ED... Start Date: 12/17/22 Stop Date: 12/12/23 Status: Ordered valsartan 160 mg oral tablet 160 mg, 1, tablet, By Mouth, 2 times a day, # 180 tablet, Refills 4, Tot. Refills 4, Maintenance, 07/09/23 13:10:00 EST, Route to Pharmacy Electronically, [facility]/pharmacy #8518, Partial fill upon patient request if the [...] Care Team Personnel Name: Alanis Harris Position: [facility] RN Supv Member Role: Primary Care Nurse Name: Brittani Anguiano RN Position: [facility] RN Member Role: Primary Care Nurse Name: Cortez Blunt MD Position: [facility] Physician - Primary Care Member Role: PCP Address: Address: [address] [place] [address]- Name: Ron Babb RN Position: [facility] RN Member Role: Primary Care Nurse Care Team Related Persons Name: CECY NGUYEN Address: home [address] [place] [address] Name: LEIDY NGUYEN JR Address: home [address] [place] [address]
--- OUTSIDE RECORDS SUMMARY | 2024-05-03 22:12 | XMS_ITS | Continuity of Care Document ---
Author Organization [facility] Address [address] [place] [address]- Care Team Providers Care Rn Digestive Name Role Phone Merlene BYRNE, Cortez Kendall Primary Care Physician Encounter [facility] Date(s): 02/24/23 - 03/26/23 [facility] [address] [place] [address]- Attending Physician: Admshannen, All8 Admitting Physician: Admtr, Ar8 Referring Physician: Admtr, Ar8 Allergies, Adverse Reactions, Alerts Substance Reaction Severity Status lisinopril cough Active penicillins Rash Active Immunizations Given and Recorded Vaccine Date Status Refusal Reason tetanus/diphtheria/pertussis, acel(Tdap) 1 12/20/17 Given 1Result Comment: [12/20/2017] [facility] 89277-763-26 Medications Acetaminophen Daily, 0 Refills, Maintenance, 09/10/22 8:02:00 EST, Partial fill upon patient request if the prescription is for a schedule II opioid drug. Start Date: 09/10/22 Status: Ordered amLODIPine 10 mg oral tablet 1 tablet, By Mouth, Daily, # 90 tablet, 3 Refills, Maintenance, 09/29/22 6:28:00 EST, [facility], 177.8, cm, 09/10/22 8:00:00 EST, Height, 146.1, [...] 0 Refills, Maintenance, 10/06/22 9:48:00 EST, Tablet, [facility]/pharmacy #[id number], Partial fill upon patient request if the prescription is for a schedule II opioid drug., 177.8, cm, 09/10/22 8:00:00 EST, Height,... Start Date: 10/06/22 Status: Ordered doxazosin 4 mg oral tablet 1 tablet, By Mouth, Daily, # 90 tablet, 1 Refills, Maintenance, 12/17/22 11:10:00 EDT, [facility], 176.1, cm, 10/21/22 11:09:00 EDT, Height, 146.1, kg, 08/29/22 15:57:00 EST, Dry Weight Start Date: 12/17/22 Status: Ordered Eliquis 5 mg oral tablet 1 tablet = 5 mg, By Mouth, 2 times a day, # 60 tablet, 5 Refills, Maintenance, 07/01/22 9:02:00 EST, Tablet, [facility]/pharmacy #[id number], Partial fill upon patient request if the prescription is for a schedule II opioid drug., 178, cm, 07/01/22 7:55:00 EST, He... Start Date: 07/01/22 Status: Ordered gabapentin 100 mg oral capsule 2, capsule, By Mouth, Daily at bedtime, # 60 capsule, Refills 2, Maintenance, 02/05/23 11:56:00 EDT, Route to Pharmacy Electronically, [facility] 46720, 176.1, cm, 12/21/22 16:31:00 EDT, Height, 146.1, kg, 08/29/22 15:57:00 EST, Dry Weight Start Date: 02/05/23 Status: Ordered Metoprolol Succinate ER 100 mg oral tablet, extended release See Instructions, TAKE 1 TABLET BY MOUTH EVERY DAY, # 90 tablet, 1 Refills, Maintenance, 11/09/22 9:12:00 EDT, [facility]/pharmacy #2071, 176.1, cm, 10/21/22 11:09:00 [...] 02/05/23 9:02:00 EDT, Route to Pharmacy Electronically, [facility] 22010, 176.1, cm, 12/21/22 16:31:00 EDT, Height, 146.1, kg, 08/29/2314:57:00 EST, Dry Weight Start Date: 02/05/23 Status: Ordered Tadalafil (Eqv-Cialis) 20 mg oral tablet 1 tablet, By Mouth, Daily, PRN NEEDED FOR ERECTILE DYSFUNCTION, # 5 tablet, 1 Refills, Maintenance, 01/25/23 20:35:00 EDT, [facility] 69722, 176.1, cm, 12/21/22 16:31:00 EDT, Height, 146.1, [...] 3 Refills, Maintenance, 12/17/22 6:36:00 EDT, Tablet, [facility]/pharmacy #2221, Partial fill upon patient request if the prescription is for a schedule II opioid drug., 176.1, cm, 10/21/22 11:09:00 ED... Start Date: 12/17/22 Stop Date: 12/12/23 Status: Ordered valsartan 160 mg oral tablet 160 mg, 1, tablet, By Mouth, 2 times a day, # 180 tablet, Refills 4, Tot. Refills 4, Maintenance, 10/19/22 13:24:00 EDT, Route to Pharmacy Electronically, [facility]/pharmacy #8487, Partial fill upon patient request if the [...] obesity Confirmed Active 1PER 03/02/14 COLONOSCOPY-DR ANABELLA BERNSTEIN-KYLIE Procedures Procedure Date Related Diagnosis Body Site Status Polysomnogram 1 02/26/15 Completed Transthoracic echocardiography 2 01/22/15 Completed Colonoscopy 3 03/02/14 Completed 1SLEEP MEDICINE [facility]-CPAP AT PRESSURE OF 13 CM H2O, USING A LARGE GUNDERSON/PAYKEL SIMPLUS FULL FACE MASK AND HEATED HUMIDIFICATION. DX JR 2[facility]-NORMAL LEFT VENTRICULAR SIZE AND SYSTOLIC FX. MODERATE CONCENTRIC LEFT VENTRICULAR HYPERTROPHY. LEFT VENTRICULAR EJECTION FRACTION IS 60-65%. E-A REVERSAL CONSISTENT WITH MILD DIASTOLIC RELAXATION ABNORMALITY. 3Repeat in 10 years Social History Social History Type Response Smoking Status Never smoker entered on: 03/11/17 Sex Laboratory * Event Display: Non Lab Results Authored Date: Patient Care team information Care Team Personnel Name: Lázaro Garcia RN Position: S RN Member Role: Primary Care Nurse Name: Alanis Harris Position: S RN Supv Member Role: Primary Care Nurse Name: Brittani Anguiano RN Position: S RN Member Role: Primary Care Nurse Name: Cortez Blunt MD Position: S Physician - Primary Care Member Role: PCP Address: Address: [address] [place] [address]- Name: Ron Babb RN Position: S RN Member Role: Primary Care Nurse Care Team Related Persons Name: CECY NGUYEN Address: home [address] [place] [address] Name: LEIDY NGUYEN JR Address: [address] [place] [address]
--- OUTSIDE RECORDS SUMMARY | 2024-05-03 22:12 | XMS_ITS | Continuity of Care Document ---
Author Organization [facility] Address [address] [place] [address]- Care Team Providers Care Crane Ladle Person Name Role Phone Cortez Blunt MD Primary Care Physician Encounter [facility] Date(s): 11/08/19 - 11/15/19 [facility] [address] [place] [address]- [facility] Attending Physician: Cortez Blunt MD Allergies, Adverse Reactions, Alerts Substance Reaction Severity Status penicillins Rash Active Immunizations Given and Recorded Vaccine Date Status Refusal Reason tetanus/diphtheria/pertussis, acel(Tdap) 1 12/20/17 Given Not Given Vaccine Date Status Refusal Reason Influenza Virus Vaccine (oldterm) 06/21/19 Not Giv en Patient Refuses 1Result Comment: [12/20/2017] [facility] 52033-762-63 Medications amLODIPine 10 mg oral tablet 10 mg, 1, tablet, By Mouth, Daily, # 30 tablet, Refills 3, Tot. Refills 3, Soft Stop, 10/26/19 8:30:00 EDT, Route to Pharmacy Electronically, [facility]/pharmacy #2071, 176.4, cm, 10/19/19 6:57:00 EDT, Height Start Date: 10/26/19 Status: Ordered aspirin 81 mg oral tablet 1 tablet = 81 mg, By Mouth, Daily, # 30 tablet, 0 Refills, Maintenance, 03/11/17 15:49:45, Tablet Start Date: 03/11/17 Status: Ordered chlorthalidone 25 mg oral tablet 25 mg, 1, tablet, By Mouth, Daily, # 30 tablet, Refills 2, Tot. Refills 2, Maintenance, 11/08/19 15:58:00 EDT, Route to [facility]acy [facility]ically, [id number], 176.4, cm, 10/19/19 6:57:00 EDT, Height Start Date: 11/08/19 Status: Ordered doxazosin 4 mg oral tablet 1 tablet, By Mouth, Daily, # 30 tablet, 5 Refills, Maintenance, 08/23/19 16:11:00 EST, [facility], 176.4, cm, 06/21/19 15:38:00 EST, Height Start Date: 08/23/19 Status: Ordered irbesartan 150 mg oral tablet 1 tablet, By Mouth, Daily, # 30 tablet, 5 Refills, Maintenance, 08/23/19 16:11:00 EST, [facility] 88911, 176.4, cm, 06/21/19 15:38:00 EST, Height Start Date: 08/23/19 Status: Ordered Problem List Condition Effective Dates [...]
--- OUTSIDE RECORDS SUMMARY | 2024-05-03 22:12 | XMS_ITS | Continuity of Care Document ---
Author Organization [facility] Address [address] [place] [address]- Care Team Providers Care Backshoe Person Name Role Phone Merlene BYRNE, Cortez Kendall Primary Care Physician Encounter [facility] Date(s): 06/22/22 - 07/22/22 [facility] Adult [address] [place] [address]- Allergies, Adverse Reactions, Alerts Substance Reaction Severity Status lisinopril Active penicillins Rash Active Immunizations Given and Recorded Vaccine Date Status Refusal Reason tetanus/diphtheria/pertussis, acel(Tdap) 1 12/20/17 Given Not Given Vaccine Date Status Refusal Reason Influenza Virus Vaccine (oldterm) 06/21/19 Not Giv en Patient Refuses 1Result Comment: [12/20/2017] [facility] 17210-897-79 Medications aspirin 81 mg oral tablet 1 [...] 07/01/22 9:03:00 EST, Route to Pharmacy Electronically, [facility]/pharmacy #[id number], Partial fill upon patient request if the prescription is for a schedule II opi... Start Date: 07/01/22 Status: Ordered gabapentin 100 mg oral capsule 2, capsule, By Mouth, Daily at bedtime, # 60 capsule, Refills 2, Maintenance, 06/18/22 11:52:00 EST, Route to Pharmacy Electronically, [facility], 176.4, cm, 05/15/22 11:35:00 EDT, Height Start [...] 07/01/22 9:03:00 EST, Route to Pharmacy Electronically, [facility]/pharmacy #[id number], Partial fill upon patient request if [...] Refills, Maintenance, 04/12/22 10:29:00 EDT, [facility], 176.4, cm, 02/02/22 11:18:00 EDT, Height Start [...] Care team information Care Team Personnel Name: Avani MCFARLANE, Luis Position: S RN Member Role: Primary Care Nurse Name: Brittani Anguiano RN Position: S RN Member Role: Primary Care Nurse Name: Cortez Blunt MD Position: [facility] Primary Care Physician Member Role: PCP Address: Address: [address] [place] [id number] Name: Edna Kelly RN Position: S RN Member Role: Primary Care Nurse Name: Ron Babb RN Position: S RN Member Role: Primary Care Nurse Care Team Related Persons Name: CECY NGUYEN Address: home [address] [place] [address] Name: LEIDY NGUYEN JR Address: [address] [place] [address]
--- OUTSIDE RECORDS SUMMARY | 2024-05-03 22:12 | XMS_ITS | Continuity of Care Document ---
Author Organization [facility] ter Address [address] [place] [id number]- Care Team Providers Care Lasting Machine Operator Hand Method Name Role Phone Merlene BYRNE, Cortez Kendall Primary Care Physician [phone] [id number] Date(s): 08/04/22 - 08/07/[address] [address]- Encounter Diagnosis Unstable angina(Final) - 08/04/22 Atrial flutter(Final) - 08/04/22 Discharge Disposition: A-D/C Home Attending Physician: Brian Wild DO Admitting Physician: Karli Robertson MD Referring Physician: Not on Staff, Referring MD Allergies, Adverse Reactions, Alerts Substance Reaction Severity Status lisinopril Active penicillins Rash Active Immunizations Given and Recorded Vaccine Date Status Refusal Reason tetanus/diphtheria/pertussis, acel(Tdap) 1 12/20/17 Given Not Given Vaccine Date Status Refusal Reason Influenza Virus Vaccine (oldterm) 06/21/19 Not Giv en Patient Refuses 1Result Comment: [12/20/2017] [facility] [id number] Medications aspirin 81 mg oral tablet 1 [...] 5 Refills, Maintenance, 07/01/22 9:02:00 EST, Tablet, [facility]/pharmacy #[id number], Partial fill upon patient request if the prescription is for a schedule II opioid drug., 178, cm, 07/01/22 7:55:00 EST, He... Start Date: 07/01/22 Status: Ordered gabapentin 100 mg oral capsule 2, capsule, By Mouth, Daily at bedtime, # 60 capsule, Refills 2, Maintenance, 06/18/22 11:52:00 EST, Route to Pharmacy Electronically, [id number], 176.4, cm, 05/15/22 11:35:00 EDT, Height Start Date: 06/18/22 Status: Ordered Lasix 40 mg oral tablet 40 mg, 1, tablet, By Mouth, Daily, # 30 tablet, Refills 5, Tot. Refills 5, Maintenance, 07/28/22 10:21:00 EST, Route to Pharmacy Electronically, [facility]/pharmacy #[id number], Partial fill upon patient request if the prescription is for a schedule II opioid drug... Start Date: 07/28/22 Stop Date: 01/24/23 Status: Ordered omeprazole 20 mg oral enteric coated capsule 1 capsule = 20 mg, By Mouth, Daily, (buys OTC), Maintenance, 06/22/22 16:42:00 EST, EC Capsule, ; Start Date: 06/22/22 Status: Ordered sotalol 120 mg oral tablet 1 tablet = 120 mg, By Mouth, 2 times a day, # 60 tablet, 0 Refills, Maintenance, 08/07/22 16:26:00 EST, Tablet, [facility], Partial fill upon patient request if the prescription is for a schedule II opioid drug., 178, cm, 08/07/22 15:14:... Start Date: 08/07/22 Status: Ordered Tadalafil (Eqv-Cialis) 20 mg oral tablet 1 tablet, By Mouth, Daily, PRN NEEDED FOR ERECTILE DYSFUNCTION, # 5 tablet, 2 Refills, Maintenance, 04/12/22 10:29:00 EDT, [id number], 176.4, cm, 02/02/22 11:18:00 EDT, Height Start Date: 04/12/22 Status: Ordered valsartan 40 mg oral tablet 40 mg, 1, tablet, By Mouth, 2 times a day, # 60 tablet, Refills 0, Tot. Refills 0, Maintenance, 08/07/22 16:11:00 EST, Route to Pharmacy Electronically, [facility], Partial fill upon patient [...] Exam Date Time Procedure Performing Provider Status 08/04/22 11:22 AM Chest 2 Views Fronta l and Lat Lexi Velazquez; Auth (Verified) Notes: (Chest 2 Views Frontal and Lat) Reason For Exam: Chest Pain;Other: RESULT: Chest 2 Views Frontal and Lat Chest 2 Views Frontal and Lat Hx of Present Illness: four days of chest heaviness, arm weakness, feeling short of breath, hx of afib was cardioverted in june.; Reason: Other:; Chest Pain; Clinical Question(s): Other: COMPARISON: 06/22/2022 FINDINGS: LINES AND TUBES: None. LUNGS AND PLEURA: Coarsened moderately increased interstitial markings to bilateral lungs, with hazy right greater than left basilar opacity, may represent atelectasis versus effusion. No large pneumothorax. HEART, MEDIASTINUM AND SADIE: Heart is at the upper limits of normal for size. Normal mediastinal and hilar contour. BONES AND SOFT TISSUES: No acute abnormality. IMPRESSION: Coarsened moderately increased interstitial markings, nonspecific, may be seen with pulmonary edemaversus interstitial infectious odontoid process. Findings are similar to slightly progressed compared to prior study. WSN: [id number] Ordering Physician: Adriel Olmos MD Dictated By: Maria De Jesus Ramirez MD Dictated Date/Time: 08/04/22 11:40 a Reviewed By: Maria De Jesus Ramirez MD Signed By: Maria De Jesus Ramirez MD Signed Date/Time: 08/04/22 11:40 am Transcribed By: SHAYY Transcribed Date/Time: 08/04/22 11:24 am Vital Signs Most recent to oldest [Reference Range]: 1 2 3 Height 178 cm (08/07/22 3:14 PM) 178 cm (08/07/22 7:43 AM) 178 cm (08/07/22 3:31 AM) Weight 147.7 kg (08/07/22 7:17 AM) 148.1 kg (08/06/22 5:20 AM) 147 kg (08/06/22 3:53 AM) Oxygen Saturation [94-100 %] 94 % (08/07/22 3:14 PM) 94 % (08/07/22 7:43 AM) 99 % (08/07/22 3:31 AM) Pulse Rate [55-90 bpm] 63 bpm (08/07/22 3:14 PM) 61 bpm (08/07/22 7:43 AM) 62 bpm (08/07/22 3:31 AM) Body Mass Index [18.5-24.99 kg/m2] 46.4 kg/m2 *>HHI* (08/04/22 5:03 PM) Blood Pressure [90-138/55-84 mm Hg] 133/67mm Hg (08/07/22 3:14 PM) 142/81mm Hg *H* (08/07/22 7:43 AM) 132/76mm Hg (08/07/22 3:31 AM) Respiratory Rate [16-30 br/min] 18 br/min (08/07/22 3:14 PM) 18 br/min (08/07/22 7:43 AM) 18 br/min (08/07/22 3:31 AM) Temperature [96.8-100.4 DegF] 98.6 DegF (08/07/22 3:14 PM) 97.3 DegF (08/07/22 7:43 AM) 97.6 DegF (08/07/22 3:31 AM) Liters per Minute 0 L/min (08/06/22 1:00 PM) 0 L/min (08/06/22 7:00 AM) 0 L/min (08/05/22 2:00 PM) Mode of Delivery (Oxygen) Room air (08/07/22 3:14 PM) Room air (08/07/22 7:43 AM) CPAP (08/07/22 3:31 AM) Blood pressure sites Arm, left (08/07/22 3:14 PM) Arm, right (08/07/22 7:43 AM) Arm, left (08/07/22 3:31 AM) Temperature Route Temporal (08/07/22 3:14 PM) Temporal (08/07/22 7:43 AM) Temporal (08/07/22 3:31 AM) Dry Weight 147 kg (08/04/22 5:03 PM) Weight Obtained Via Bed scale (08/06/22 5:20 AM) Social History Social History Type Response Smoking Status Never smoker entered on: 03/11/17 Sex Admission evaluation note * Michael BYRNE, Jackie Sheehan: PERFORM Event Display: Admission Note Authored Date: Patient: ??WENDY LEIDY ? Age:??61 Years?Sex:??Male?:??1960?? Chief Complaint/Reason for Consultation Shortness of breath History of Present Illness 61-year-old male patient with a past medical history of obesity,??obstructive sleep apnea on nightly CPAP,??essential hypertension, and recent diagnosis of atrial fibrillation with RVR??on anticoagulation with Eliquis who presents today to the ER for further evaluation of??progressive worsening shortness of breath??to the point he develops orthopnea and paroxysmal nocturnal dyspnea last night.?? He called??his sample processor who advised him to go to the ER for further evaluation.?? He was admitted??last month for A. fib RVR??underwent??BENNIE cardioversion??with amish of sinus rhythm however??was seen in the cardiology office on??07/28/2022 and he was found to??be back in A. fib.?? He reported since??07/28/2022??he has been??having increased??shortness of breath??with exertion??however gotten worse over the past 24 to 48 hours.?? Upon presentation to ER, the patient was hemodynamically??stable with BP??of 157/113, pulse rate of 112. ??EKG was obtained showed atrial flutter/fibrillation with variable AV block. ??Initial blood work was largely unremarkable except for mild elevation of proBNP at 800 overload. ??Initial troponin was 10 and remained flat. Review of Systems Constitutional:?No weight loss, fever, chills, weakness or fatigue. Cardiovascular:No chest pain,pressure or discomfort. No palpitations or pedal edema. Respiratory:??Shortness of breath,??orthopnea, paroxysmal nocturnal dyspnea Gastrointestinal:?No anorexia, nausea, vomiting or diarrhea. No abdominal pain or blood in stool. Genitourinary: No burning micturition. No urinary frequency or incontinence. Neurologic: No headache, dizziness, syncope, unilateral weakness, ataxia, numbness or tingling in the extremities. No change in bowel or bladder control. Musculoskeletal: No muscle pain, back pain, joint pain or stiffness. Hematologic: No bleeding or bruising. Lymphatics: No enlarged lymph nodes. Psychiatric: No depression or anxiety. Endocrine: No reports of sweating. No cold or heat intolerance. No polyuria or polydipsia. All other systems were reviewed and are negative. Objective Measurements?? Weight: 147 kg (08/04/22) Dry Weight: 147 kg (08/04/22) ? Vital Signs?? Temperature: 98.3 DegF (08/04/22 20:00:00) Temperature Route: Oral (08/04/22 20:00:00) Pulse Rate: 63 bpm (08/04/22 20:00:00) Respiratory Rate: 20 br/min (08/04/22 20:00:00) Systolic Blood Pressure:??155 mm Hg??High (08/04/22 20:00:00) Diastolic Blood Pressure:??101 mm Hg??High (08/04/22 20:00:00) Blood pressure sites: Arm, left (08/04/22 20:00:00) Mean Arterial Pressure: 119 mm Hg (08/04/22 20:00:00) Pulse Pressure: 54 mm Hg (08/04/22 20:00:00) Oxygen Saturation: 96 % (08/04/22 20:00:00) Liters per Minute: 2 L/min (08/04/22 17:07:00) Mode of Delivery (Oxygen): Room air (08/04/22 20:00:00) Early Warning Score: 0 (08/04/22 20:13:31) ? Intake/Output? No Data Available ? Physical Exam ?? Constitutional: Alert, in no acute distress. ?? Head: Normocephalic. ?? Eyes: Pupils are equal, round and reactive to light. Extraocular muscles intact. No pallor or scleral icterus ?? Ear, Nose and Throat: mucous membranes moist. Ears and nose - no obvious deformities. Trachea midline. ?? Neck: Supple, Full range of motion.No JVD or bruits. ?? Respiratory:??Clear to auscultation. No wheezing or rhonchi.??No use of accessory muscles. No tactile fremitus.? Cardiovascular:??PMI not visible. S1 S2 regular. No murmurs, rubs or gallops. ?? Gastrointestinal:??Abdomen soft, non-tender, non-distended. Normal bowel sounds. No pulsatile mass.No hepatosplenomegaly. ?? Genitourinary:??No costovertebral angle tenderness. ?? Extremities: No lower extremity pitting edema. No cyanosis or clubbing. ?? Neurologic:??AAOx3, Cranial nerves II-XII grossly intact. Speech normal, no facial droop. No focal neurological deficits. Moves all extremities spontaneously. Sensation intact bilaterally.??Flexor plantar response ?? Skin:??No rash.? Musculoskeletal:??No gross deformities on inspection. Normal range of motion in hips, knees, ankles. Gait? _ ?.??Muscle strength within normal limits ?? Heme/Lymphatics:??Palpation of neck reveals no swelling or tenderness of neck nodes.? Psychiatric: Normal mood and affect. ?? Assessment/Plan 61-year-old male with past medical history of obstructive sleep apnea on CPAP, hypertension??who isbeing admitted to the medical floor for further management of atrial fibrillation??with RVR??and CHF exacerbation. ? Atrial fibrillation with??rapid ventricular response:?? CHF exacerbation: Presented with??progressive shortness of breath associated with??proximal mitral dyspnea and??orthopnea. Was found to be??in Robb t[place] RVR He was seen in cardiology office on??07/28/2022 and he was found in Rob[place] t[place], his metoprolol dose wasincreased??from 50 to 100 mg. Resume home medications As needed??metoprolol IV??for sustained heart rate more than 120. Continue to??monitor on telemetry We will give??Lasix 40 mg twice daily for 2 doses only,??as the patient is not grossly volume overloaded upon my evaluation. Daily clinical volume??assessment Cardiology consultation for further management??cardioversion versus ablation. ? Hypertension Metoprolol as above. ? Obstructive sleep apnea??on CPAP CPAP ordered ? Quality metrics: CODE STATUS:??Full code Diet:??Cardiac diet DVT prophylaxis???Eliquis Histories Allergies Allergies ?(Active and Proposed Allergies [...] ? Social History Alcohol Details:??Use: Current. 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 Employment/School Details:??Status: Employed. ??Other: [employer] school and [employer]. Exercise Details:??Self assessment: Poor condition. ??Regular exercise: No. Home/Environment Details:??Living situation: Home/Independent. ??Lives with: Spouse. Nutrition/Health Details:??Diet: Regular. ??Caffeine intake amount: 20 oz cup 2-3 a day. ??Feels highly stressed: Yes. Sexual Details:??Sexually involved in last 6 months: Yes. ??Sexual orientation: Heterosexual. ??Gender identity: Male. ??Preferred pronoun: He/him. Substance Abuse Details:??Use: Never. Tobacco Details:??Never smoker ? Family History Mother: Alcoholism; Hypertension Son: Diabetes mellitus type I ? Medications Home Medications apixaban (Eliquis 5 mg oral tablet)?1?tab(s)?5?Milligram?By Mouth?2 times a day Aspirin (aspirin 81 mg oral tablet)?1?tab(s)?81?Milligram?By Mouth?Daily Doxazosin (doxazosin 4 mg oral tablet)?1?tab(s)?By Mouth?Daily Flecainide (flecainide 50 mg oral tablet)?50?Milligram?1?tablet?By Mouth?Every 12hours?for 30?Days Furosemide (Lasix 40 mg oral tablet)?40?Milligram?1?tablet?By Mouth?Daily?for 30?Days Gabapentin (gabapentin 100 mg oral capsule)?2?capsule?By Mouth?Daily at bedtime Metoprolol (metoprolol 100 mg oral tablet, extended release)?100?Milligram?1?tablet?By Mouth?Daily?for 30?Days Omeprazole (omeprazole 20 mg oral enteric coated capsule)?1?capsule?20?Milligram?By Mouth?Daily?(buys OTC) tadalafil (Tadalafil (Eqv-Cialis) 20 mg oral tablet)?1?tab(s)?By Mouth?Daily?as needed? NEEDED FOR ERECTILE DYSFUNCTION ? Results Recent Labs BLOOD COUNT & DIFF WBC 6.6 k/mm3 ()?? 08/04/2022 12:47 RBC 4.79 m/mm3 ()?? 08/04/2022 12:47 Hgb 14.3 Gm/dL ()?? 08/04/2022 12:47 Hct 42.2 % ()?? 08/04/2022 12:47 MCV 88.1 femtoliters ()?? 08/04/2022 12:47 MCH 29.9 pg ()?? 08/04/2022 12:47 MCHC 33.9 g/dL ()?? 08/04/2022 12:47 Platelet Count 209 k/mm3 ()?? 08/04/2022 12:47 RDW-SD 41.0 femtoliters ()?? 08/04/2022 12:47 MPV 10.5 femtoliters ()?? 08/04/2022 12:47 Nucleated RBC (Automated) 0.0 #/100 WBC'S ()?? 08/04/2022 12:47 Abs. NRBC 0.0 k/mm3 ()?? 08/04/2022 12:47 Abs. Neut 5.1 k/mm3 ()?? 08/04/2022 12:47 Abs. Lymph 0.7 k/mm3 (Low)?? 08/04/2022 12:47 Abs. Mariposa 0.6 k/mm3 ()?? 08/04/2022 12:47 Abs. Eo 0.2 k/mm3 ()?? 08/04/2022 12:47 Abs. Baso 0.0 k/mm3 ()?? 08/04/2022 12:47 Neut % 76.5 % (High)?? 08/04/2022 12:47 Lymph % 11.0 % (Low)?? 08/04/2022 12:47 Mariposa % 8.6 % ()?? 08/04/2022 12:47 Eos % 3.0 % ()?? 08/04/2022 12:47 Baso % 0.6 % ()?? 08/04/2022 12:47 Imm Gran 0.3 % ()?? 08/04/2022 12:47 Abs. Imm Gran 0.0 k/mm3 ()?? 08/04/2022 12:47 ?? CARDIAC Nt-Probnp 801 pg/mL (High)?? 08/04/2022 12:47 High Sensitivity Troponin (HSTnT) 10 ng/L ()?? 08/04/2022 14:49 ?? CHEM GENERAL Sodium 142 mmol/L ()?? 08/04/2022 12:47 Potassium 4.0 mmol/L ()?? 08/04/2022 12:47 Chloride 105 mmol/L ()?? 08/04/2022 12:47 Bicarbonate Level 28 mmol/L ()?? 08/04/2022 12:47 Anion Gap 9 ()?? 08/04/2022 12:47 Glucose Level 105 mg/dL (High)?? 08/04/2022 12:47 BUN 14 mg/dL ()?? 08/04/2022 12:47 Creatinine-Blood 0.7 mg/dL ()?? 08/04/2022 12:47 Estimated GFR Creatinine 105 ML/MIN/1.73 M2 ()?? 08/04/2022 12:47 Calcium 9.1 mg/dL ()?? 08/04/2022 12:47 ?? HEME OTHER Hold Blue Top SPECIMEN DISCARDED AFTER 4 HOURS. ()?? 08/04/2022 14:49 ?? VIROLOGY COVID-19 POC Result NEGATIVE ()?? 08/04/2022 10:52 ? EKG study * Event Display: EKG Authored Date: * Event Display: EKG Authored Date: * Event Display: ECG 12-Lead Authored Date: Please click on pdf link to open report * Event Display: ECG 12-Lead Authored Date: Ventricular Rate: 95 BPM Atrial Rate: 249 BPM QRS Duration: 104 ms Q-T Interval: 346 ms QTC Calculation(Bazett): 434 ms P [place]: 32 degrees R [place]: 22 degrees T [place]: -9 degrees Atrial flutter with variable A-V block Poor data quality, interpretation may be adversely affected Cannot rule out Inferior infarct , age undetermined Anterior infarct , age undetermined Lateral injury pattern Abnormal ECG When compared with ECG of 28-JUL-2022 07:53, Confirmed by NINO GLORIA MD ([id number]) on 08/05/2022 8:10:49 AM [place]: NINO GLORIA MD Note * Event Display: Cardiac Rhythm Strips Authored Date: * Ashia Sahu RN: PERFORM Event Display: Discharge/Transfer Note Hospital Authored Date: [id number] Nursing Discharge Note Entered On: 08/07/2022 18:09 EST Performed On: 08/07/2022 18:09 EST by Ashia Sahu RN Nursing Discharge Note 2 Discharge Time : 08/07/2022 17:57 EST Discharge Level of Care at Discharge : Home/Long Term/Foster Care [facility] Former Hand Utilized : No Patient Left Unit Via : Wheelchair Patient Accompanied Off Unit with : Responsible adult DC Instructions Provided & Signed by Pt : Yes Patient Understands D/C Instructions : Yes Patient Instructions Discharge Signed : Yes Did Pt have Specialty Bed or Wound Vac : Yes Ashia Sahu RN - 08/07/2022 18:09 EST * Brian Wild DO: PERFORM, MODIFY Event Display: Discharge/Transfer Note Hospital Authored Date: Patient: ??LEIDY GAMBINO ? Age:??61 Years?Sex:??Male?:??1960?? Patient Information Discharge Location: 7 Primary Care Physician: Cortez Blunt MD Admit Date/Time: 08/04/22 19:09 Discharge Disposition Discharge Disposition: Home: No Services Discharge Diagnosis Acute on chronic heart failure with preserved ejection fraction (I50.33) Atrial flutter (I48.92) Unstable angina (I20.0) Benign essential hypertension Bilateral knee pain Hemorrhoids JR (obstructive sleep apnea) Obesity ?? _ Discharge Medications apixaban (Eliquis 5 mg oral tablet)?1?tab(s)?5?Milligram?By Mouth?2 times a day Aspirin (aspirin 81 mg oral tablet)?1?tab(s)?81?Milligram?By Mouth?Daily Doxazosin (doxazosin 4 mg oral tablet)?1?tab(s)?By Mouth?Daily Furosemide (Lasix 40 mg oral tablet)?40?Milligram?1?tablet?By Mouth?Daily?for 30?Days Gabapentin (gabapentin 100 mg oral capsule)?2?capsule?By Mouth?Daily at bedtime Omeprazole (omeprazole 20 mg oral enteric coated capsule)?1?capsule?20?Milligram?By Mouth?Daily?(buys OTC) Sotalol (sotalol 120 mg oral tablet)?1?tab(s)?120?Milligram?By Mouth?2 times a day tadalafil (Tadalafil (Eqv-Cialis) 20 mg oral tablet)?1?tab(s)?By Mouth?Daily?as needed? NEEDED FOR ERECTILE DYSFUNCTION Valsartan (valsartan 40 mg oral tablet)?40?Milligram?1?tablet?By Mouth?2 times a day ? Vaccinations and Immunoprophylaxis tetanus/diphtheria/pertussis, acel(Tdap): 0.5 mL (12/20/17 14:42:00) ?? Future Appointments Wednesday 8:45 AM EST ?? With: Bonifacio MYERS, Kassandra Where: [facility] [address] [place] [address]- 2022 7:45 AM EST ?? With: Haroldo Coleman MD Where: [facility] [address] [place] [address]- Wednesday 10:50 AM EDT ?? With: Merlene BYRNE, Cortez Kendall Where: [facility] [address] [place] [address]- Hospital Course Mr. Gambino is a 61-year-old male patient with a medical history of obesity, obstructive sleep apnea on nightly CPAP, essential hypertension, and history of atrial fibrillation [DCCV in July 01 and discharged on flecainide and eliquis} , He saw cardiology outpatient in July 28, 2022 where he was noted to be in atrial flutter with variable AV block and is metoprolol dose was increased to 100 mg daily, patient developed worsening shortness of breath along with orthopnea, paroxysmal nocturnal dyspnea and reported to his sample processor who suggested him to go to the ED for further evaluation. Patient was found to be in acute on chronic HFpEF secondary to A. fib/flutter with RVR. Patient was cardioverted on 08/06/2022 back to normal sinus rhythm. Patient was diuresed with IV Lasix 40 mgtwice daily and returned to his home Lasix dose.??He was started on sotalol 120 mg twice daily and received??4 doses of sotalol so far. Monitoring QTC is WNL.??He will follow with Cardiology and PCP. ?? Acute on chronic diastolic heart failure ??Continue Lasix home dose, monitor I's and O's, daily serum creatinine monitoring ??Continue metoprolol ?? Paroxysmal atrial fibrillation/flutter with RVR ??Status post cardioversion on 08/06/2022 ??Rate/rhythm control-sotalol, ??Anticoagulation-Eliquis ?? JR on CPAP ??Continue nocturnal CPAP ?? Hypertension ??Continue metoprolol, started on losartan 25 mg daily (allergy to HILARIO), continue doxazosin ?? BPH ??Doxazosin ?? Diet-cardiac diet ?? CODE STATUS-full code ?? DVT prophylaxis-Eliquis ?? Objective Measurements?? Height: 178 cm (08/07/22) Weight: 147.7 kg (08/07/22) Dry Weight: 147 kg (08/04/22) Body Mass Index:??46.4 kg/m2??Critical (08/04/22) ? Vital Signs?? Temperature: 98.6 DegF (08/07/22 15:14:00) Temperature Route: Temporal (08/07/22 15:14:00) Pulse Rate: 63 bpm (08/07/22 15:14:00) Respiratory Rate: 18 br/min (08/07/22 15:14:00) Systolic Blood Pressure: 133 mm Hg (08/07/22 15:14:00) Diastolic Blood Pressure: 67 mm Hg (08/07/22 15:14:00) Blood pressure sites: Arm, left (08/07/22 15:14:00) Mean Arterial Pressure: 89 mm Hg (08/07/22 15:14:00) Pulse Pressure: 66 mm Hg (08/07/22 15:14:00) Oxygen Saturation: 94 % (08/07/22 15:14:00) Mode of Delivery (Oxygen): Room air (08/07/22 15:14:00) FiO2: 21 % (08/07/22 03:55:00) Early Warning Score: 2 (08/07/22 15:15:44) ? . Physical Exam Gen:??Well nourished, A&O x4 Resp:Veritably vesicular, absent adventitial acoustic aberration CV:??Regular rhythm,??regular rate;??S1/S2 present;??No murmurs, rubs, or gallops??appreciated. GI: Soft, nontender, no??organomegaly palpated,??nondistended, + bowel sounds Skin: No lesions seen Psych: appropriate affect Consultants [facility] Patient Education Titles Atrial Flutter?? Follow-Up Appointments Added Follow Up ?Time Frame ?Comments [facility] Merlene BYRNE, Cortez Kendall Post Discharge Care Code Status: ?? Full Resuscitation Condition: Stable Prognosis: Fair Discharge ?08/07/22 16:10:00 EST Results Discharge Labs BLOOD COUNT & DIFF WBC 7.1 k/mm3 ()?? 08/07/2022 03:34 RBC 4.49 m/mm3 (Low)?? 08/07/2022 03:34 Hgb 13.0 Gm/dL (Low)?? 08/07/2022 03:34 Hct 40.5 % ()?? 08/07/2022 03:34 MCV 90.2 femtoliters ()?? 08/07/2022 03:34 MCH 29.0 pg ()?? 08/07/2022 03:34 MCHC 32.1 g/dL (Low)?? 08/07/2022 03:34 Platelet Count 189 k/mm3 ()?? 08/07/2022 03:34 RDW-SD 43.1 femtoliters ()?? 08/07/2022 03:34 MPV 10.4 femtoliters ()?? 08/07/2022 03:34 Nucleated RBC (Automated) 0.0 #/100 WBC'S ()?? 08/07/2022 03:34 Abs. NRBC 0.0 k/mm3 ()?? 08/07/2022 03:34 Abs. Neut 5.4 k/mm3 ()?? 08/07/2022 03:34 Abs. Lymph 0.7 k/mm3 (Low)?? 08/07/2022 03:34 Abs. Mariposa 0.7 k/mm3 ()?? 08/07/2022 03:34 Abs. Eo 0.2 k/mm3 ()?? 08/07/2022 03:34 Abs. Baso 0.0 k/mm3 ()?? 08/07/2022 03:34 Neut % 76.2 % (High)?? 08/07/2022 03:34 Lymph % 9.7 % (Low)?? 08/07/2022 03:34 Mariposa % 10.0 % ()?? 08/07/2022 03:34 Eos % 3.4 % ()?? 08/07/2022 03:34 Baso % 0.4 % ()?? 08/07/2022 03:34 Imm Gran 0.3 % ()?? 08/07/2022 03:34 Abs. Imm Gran 0.0 k/mm3 ()?? 08/07/2022 03:34 ?? CARDIAC Nt-Probnp 801 pg/mL (High)?? 08/04/2022 12:47 High Sensitivity Troponin (HSTnT) 10 ng/L ()?? 08/04/2022 14:49 ?? CHEM GENERAL Sodium 143 mmol/L ()?? 08/07/2022 03:34 Potassium 3.7 mmol/L ()?? 08/07/2022 03:34 Chloride 104 mmol/L ()?? 08/07/2022 03:34 Bicarbonate Level 29 mmol/L ()?? 08/07/2022 03:34 Anion Gap 10 ()?? 08/07/2022 03:34 Glucose Level 108 mg/dL (High)?? 08/07/2022 03:34 BUN 29 mg/dL (High)?? 08/07/2022 03:34 Creatinine-Blood 1.0 mg/dL ()?? 08/07/2022 03:34 Estimated GFR Creatinine 90 ML/MIN/1.73 M2 ()?? 08/07/2022 03:34 Calcium 9.0 mg/dL ()?? 08/07/2022 03:34 Magnesium 2.2 mg/dL ()?? 08/06/2022 07:58 Protein, Total 5.8 Gm/dL (Low)?? 08/07/2022 03:34 Albumin 3.9 Gm/dL ()?? 08/07/2022 03:34 AG Ratio 2.1 ()?? 08/07/2022 03:34 Alkaline Phosphatase 85 units/L ()?? 08/07/2022 03:34 AST (SGOT) 10 units/L ()?? 08/07/2022 03:34 ALT (SGPT) 7 units/L ()?? 08/07/2022 03:34 Bilirubin, Total 0.6 mg/dL ()?? 08/07/2022 03:34 ?? HEME OTHER Hold Blue Top SPECIMEN DISCARDED AFTER 4 HOURS. ()?? 08/04/2022 14:49 ? VIROLOGY COVID-19 PCR Specimen Source NASAL ()?? 08/06/2022 20:30 COVID-19 PCR Result NEGATIVE ()?? 08/06/2022 20:30 COVID-19 POC Result NEGATIVE ()?? 08/04/2022 10:52 ? 39??minutes spent on discharge * Ashia Sahu RN: PERFORM Event Display: Patient Education/Instruction Authored Date: [id number] Inpatient Adult Discharge Instructions [address] [address] Name: LEIDY GAMBINO : 1960 Visit: 08/04/2022 19:09:00 Current Date: 08/07/2022 16:28 Account: [id number] Inpatient Adult Discharge Instructions We would like [...] and their families. Surveys are administered by [employer] ?? If further treatment with your primary care physician or another doctor is recommended, it is important for you to keep the appointment. Call your primary care physician or return to the Emergency Department immediately if your condition worsens, fails to improve, or new symptoms develop. If you need to find a doctor, you can call [facility] for a referral at [phone] or toll free at [phone] or log in to [email or web address].. ?? You can view and manage your care through the patient portal or by using a health care nidia of your choosing. [employer] is a website that allows you to securely view your medical information including your hospital discharge summary, office visit summaries, medications and follow-up visits. You can also request appointments, renew medications, and request access to your medical information using a health care nidia of your choosing, or just ask a question. You can enroll at [email or web address] or register during your next office visit. You have been discharged from [facility], Patient Care Unit: M7. If you have any questions regarding these instructions after you leave, please call us and we will be happy to assist you. [facility] Your Care Team Attending Physician Brian Wild DO Consulting Providers Nydia BYRNE, Tahira Jim MD, Angelica Sheehan Discharging Providers Brian Wild DO Reason for Admission Shortness of breath Your Diagnosis Unstable angina Atrial flutter Acute on chronic heart failure with preserved ejection fraction Tests Performed Below is a partial list of the tests performed during your hospitalization. You may have had other tests and procedures not included in this list. Please discuss all test results with your provider. B Type Natriuretic Peptide Basic Metabolic Panel CBC w/ Differential Comprehensive Metabolic Panel COVID-19 (2019 Novel Coronavirus) PCR COVID-19 RNA POC High??Sensitivity??Troponin T HOLD BLUE TUBE Magnesium Level XR Chest 2 Views Frontal and Lat Primary Care Provider Cortez Blunt MD Advance Directive Health Care Proxy on File Yes - Health Care Proxy No qualifying data available. Discharge Vitals Temperature: 98.6 DegF Height: 178 cm Pulse Rate: 63 bpm Weight: 147.7 kg Respiratory Rate: 18 br/min Body Mass Index:??46.4 kg/m2??Critical Systolic Blood Pressure: 133 mm Hg Body surface area: 2.7 Diastolic Blood Pressure: 67 mm Hg ?? Oxygen Saturation: 94 % ?? Studies Pending All tests and labs ordered during this hospital stay have been completed unless listed below. Please discuss all pending results with your provider listed above in these instructions. ?? No incomplete studies found What to do next Instructions From Your Doctor Discharge Orders Code Status:?? Full Resuscitation Condition:??Stable Prognosis:??Fair Scheduled Follow-Up Appointments Wednesday 8:45 AM EST ?? With: Kassandra Valdovinos NP Where: [facility] [address] [place] [address] - 2022 7:45 AM EST ?? With: Haroldo Coleman MD Where: [facility] [address] [place] [address] - Wednesday 10:50 AM EDT ?? With: Cortez Blunt MD Where: [facility] [address] [place] [address]- You Need to Schedule the Following Appointments Follow Up with??[facility] When?? Where: [address] [place] [id number]- Follow Up with??Merlene BYRNE, Cortez Kendall When?? Where: ?? Discharge Medications LEIDY GAMBINO :1960 Visit Date:08/04/2022 Medications: Please continue your medications until treatment is completed or stopped by your provider. Medications not listed below should be discontinued. Discuss any questions related to medications with your provider. What How Much When Instructions Next Dose New Sotalol (sotalol 120 mg oral tablet) 1 tab(s) Oral Twice a day Pickup at [facility] 3 tonight 9pm New Valsartan (valsartan 40 mg oral tablet) 1 tab(s) Oral Twice a day Pickup at [facility] 3 tonight 9pm Unchanged apixaban (Eliquis 5 mg oral tablet) 1 tab(s) Oral Twice a day tonight 9pm Unchanged Aspirin (aspirin 81 mg oral tablet) 1 tab(s) Oral Daily 12/31 am Unchanged Doxazosin (doxazosin 4 mg oral tablet) 1 tab(s) Oral Daily 12/31 am Unchanged Furosemide (Lasix 40 mg oral tablet) 1 tab(s) Oral Daily Duration: 30 Days 12/31 am Unchanged Gabapentin (gabapentin 100 mg oral capsule) 2 capsule Oral Daily at Bedtime tonight 9pm Unchanged Omeprazole (omeprazole 20 mg oral enteric coated capsule) 1 capsule Oral Daily (buys OTC) ?? 12/31 am Unchanged tadalafil (Tadalafil (Eqv-Cialis) 20 mg oral tablet) 1 tab(s) Oral Daily as needed for NEEDED FOR ERECTILE DYSFUNCTION as needed Pharmacy Information [facility] 3: [address], [place] [id number] [phone] ?? What How Much When Comments Stop Taking Flecainide (flecainide 50 mg oral tablet) 1 tab(s) Oral Every 12 hours Duration: 30 Days Stop Taking Metoprolol (metoprolol 100 mg oral tablet, extended release) 1 tab(s) Oral Daily Duration: 30 Days Test Results Below is a partial list of the most recent Laboratory test results done prior to this discharge. You may have had other tests and procedures not included in this list. Please discuss all test resultswith your provider. B Type Natriuretic Peptide (08/04/2022) ???Nt-Probnp - 801 pg/mL Basic Metabolic Panel (08/06/2022) ???Sodium - 144 mmol/L???Potassium - 3.8 mmol/L???Chloride - 105 mmol/L???Bicarbonate Level - 28 mmol/L???Anion Gap - 11???Glucose Level - 105 mg/dL???BUN - 6 mg/dL???Creatinine-Blood - 0.7 mg/dL???Estimated GFR Creatinine - 104 ML/MIN/1.73 M2???Calcium - 8.9 mg/dL CBC w/ Differential (08/07/2022) ???WBC - 7.1 k/mm3???RBC - 4.49 m/mm3???Hgb - 13.0 Gm/dL???Hct - 40.5 %???MCV - 90.2 femtoliters???MCH - 29.0 pg???MCHC - 32.1 g/dL???Platelet Count - 189 k/mm3???RDW-SD - 43.1 femtoliters???MPV - 10.4 femtoliters???Nucleated RBC (Automated) - 0.0 #/100 WBC'S???Abs. NRBC - 0.0 k/mm3???Abs. Neut - 5.4 k/mm3???Abs. Lymph - 0.7 k/mm3???Abs. [place] - 0.7 k/mm3???Abs. Eo - 0.2 k/mm3???Abs. Baso - 0.0 k/mm3???Neut % - 76.2 %???Lymph % - 9.7 %???[place] % - 10.0 %???Eos % - 3.4 %???Baso % - 0.4 %???Imm Gran - 0.3 %???Abs. Imm Gran - 0.0 k/mm3 Comprehensive Metabolic Panel (08/07/2022) ???Sodium - 143 mmol/L???Potassium - 3.7 mmol/L???Chloride - 104 mmol/L???Bicarbonate Level - 29 mmol/L???Anion Gap - 10???Glucose Level - 108 mg/dL???BUN - 29 mg/dL???Creatinine-Blood - 1.0 mg/dL???Estimated GFR Creatinine - 90 ML/MIN/1.73 M2???Calcium - 9.0 mg/dL???Protein, Total - 5.8 Gm/dL???Alb umin - 3.9 Gm/dL???AG Ratio - 2.1???Alkaline Phosphatase - 85 units/L???AST (SGOT) - 10 units/L???ALT (SGPT) - 7 units/L???Bilirubin, Total - 0.6 mg/dL COVID-19 (2019 Novel Coronavirus) PCR (08/06/2022) ???COVID-19 PCR Specimen Source - NASAL???COVID-19 PCR Result - NEGATIVE COVID-19 RNA POC (08/04/2022) ???COVID-19 POC Result - NEGATIVE High??Sensitivity??Troponin T (08/04/2022) ???High Sensitivity Troponin (HSTnT) - 10 ng/L HOLD BLUE TUBE (08/04/2022) ???Hold Blue Top - SPECIMEN DISCARDED AFTER 4 HOURS. Magnesium Level (08/06/2022) ???Magnesium - 2.2 mg/dL Allergies (NKA means No Known Allergies) lisinopril penicillins??(Rash) Problems Active Problems??(9) Benign essential hypertension?? Bilateral knee pain?? Diverticulosis?? Hemorrhoids?? Migraine?? Obesity?? JR (obstructive sleep apnea)?? Severe obesity?? Sleep related hypoventilation/hypoxemia in other disease?? Education Materials Below is the list of Educational Leaflet Providered with your Discharge Instructions. Sotalol Oral Tablet?? Heart Failure?? Discharge Instructions for Heart Failure?? Atrial Flutter?? Valuables and Belongings I fully understand and agree that [facility] accepts no responsibility for all my personal [...] to send valuables and belongings home. ?? Date for Pt to Sign Valuables/Belongings: 08/05/22 14:26:00 ?? Other Discharge Information ? Pulmonary Rehab Status?? Pulmonary Rehab Discharge Status?? CPAP/BiPAP Mask Type: Full CPAP/BiPAP Mask Size: Medium Respiratory Rate: 18 br/min ? Common Emergency [...] are strongly encouraged to quit. Please call [facility] Link at [phone] or [phone] or log in to [email or web address] for referrals to smoking cessation programs. ?? The National Suicide Prevention Hotline is available 01/03 if you or someone you know needs to find a reason to keep living. By calling 4-455-388-Small Demons (1702) you'll be connected to a skilled, trained counselor at a crisis center in your area. INPATIENT DISCHARGE INSTRUCTIONS SIGNATURE PAGE LEIDY GAMBINO Location:[facility] Registration Date and Time:08/04/2022 19:09 EST Primary Care Physician: Cortez Blunt MD, I LEIDY GAMBINO, have received the above patient education materials/instructions and have verbalized understanding. If ambulance or transport services are being used I further acknowledge being given a choice of service. ?? If you need to contact me, please call me at this number: . Patient/Visualizer Name: Patient/Visualizer Signature: Relationship to Patient: Witness Name/Signature: Date: * Ashia Sahu RN: PERFORM Event Display: Patient Education Leaflets Authored Date: [id number] Sotalol Oral Tablet ?? [id number] Sotalol Oral Tablet Brands: Betapace, Sorine Uses For irregular heartbeat. ?? Instructions This medicine may be taken with or without food, but it is important to take it the same way each time. It is very important that you take the medicine at about the same time every day. It will work bestif you do this. Store at room temperature away from heat, light, and moisture. Do not keep in the bathroom. Do not take any antacid or vitamins with magnesium or aluminum for 2 hours before and 2 hours aftertaking this medicine. It is important that you keep taking [...] about all medicines taken. Include prescription and jafg-yhv-lnhlvda medicines, vitamins, and herbal medicines. Speak with your doctor or pharmacist before starting or stopping any medicine. If you have diabetes, this medicine may hide some signs of low blood sugar, such as fast heartbeat.Check your blood sugar regularly and for other signs of low blood sugar. Do not suddenly stop taking this medicine. Check with your doctor before stopping. This medicine may affect your blood sugar levels. If you have diabetes, talk to your doctor before changing the dose of your diabetes medicine. It is very important that you follow [...] risks and benefits associated with this medicine. This medicine is associated with an increased risk of serious heart problems and heart attack. Please speak with your doctor about the risks and benefits of using this medicine. Contact your doctor immediately if you experience chest pain or difficulty breathing. Do not use the medication any more [...] , planning to be , or . This medicine should be used with caution in patients with breathing difficulties. Call your doctor right away if you notice slow or shallow breathing. If you have had a heart attack within the past 2 weeks, talk to your doctor before using this medicine. Do not share this medicine with anyone who has not been prescribed this medicine. ?? Side Effects The following is a list of some common side effects from this medicine. Please speak with your doctor about what you should do if you experience these or other side effects. ??? diarrhea ??? dizziness ??? lack of energy and tiredness ??? headaches ??? low blood pressure ??? problems with sexual functions or desire Call your doctor or get medical help right away if you notice any of these more serious side effects: ??? chest pain ??? swelling of the legs, feet, and hands ??? fainting ??? fast, irregular, or slow heartbeat ??? rapid heartbeat ??? shortness of breath ??? sudden or unexplained weight gain A few people may have an allergic reaction to this medicine. Symptoms can include difficulty breathing, skin rash, itching, swelling, or severe dizziness. If you notice any of these symptoms, seek medical help quickly. ?? Extra Please speak with your doctor, nurse, or pharmacist if you have any questions about this medicine. ?? [email or web address] IMPORTANT NOTE: This document tells you briefly how to take your medicine, but it does not tell youall there is to know about it. Your doctor or pharmacist may give you other documents about your medicine. Please talk to them if you have any questions. Always follow their advice. There is a more complete description of this medicine available in Icelandic. Scan this code on your smartphone or tablet or use the web address below. You can also ask your pharmacist for a printout. If you have any questions, please ask your pharmacist. The display and use of this drug information is subject to Terms of Use. Copyright(c) 2021 [employer]. ?? The [employer]. All rights reserved. This information is not intended as a substitute for professional medical care. Always follow your healthcare professional's instructions. ?? * Ashia Sahu RN: PERFORM Event Display: Patient Education Leaflets Authored Date: [id number] Heart Failure ?? [id number] Heart Failure What is heart failure? The heart is a muscle that pumps oxygen-rich blood to all parts of the body. When you have heart failure, the heart can???t pump as well as it should. Or the heart muscle can???t relax and fill the pumping chamber with blood. Blood and fluid may back up into the lungs. This causes congestive heart failure. And it causes pulmonary edema. Some parts of the body also don???t get enough oxygen- rich blood. This means they can't work well. These problems lead to the symptoms of heart failure. ?? What causes heart failure? Heart failure may result from: ??? Heart valve disease ??? High blood pressure ??? Active infections of the heart valves or heart muscle, such as endocarditis ??? A past heart attack ??? Coronary artery disease ??? Disease of the heart muscle (cardiomyopathy) ??? Heart problems that are present at (congenital heart defects) ??? Heart rhythm problems (arrhythmias) ??? Long-term (chronic) lung disease and pulmonary embolism ??? A reaction to medicines such as those used for chemotherapy ???Anemia and too much blood loss ??? Thyroid disorders ??? Diabetes ??? Alcohol and drug abuse ??? Certain viral infections ?? What are the symptoms of heart failure? The most common symptoms of heart failure are: ??? Shortness of breath while resting, exercising, or lying flat ??? Weight gain from water retention ??? Visible swelling of the legs.ankles, and feet from fluid buildup. Sometimes the belly (abdomen) may swell. ??? Severe tiredness (fatigue) and weakness ??? Loss of appetite, nausea, and belly pain ??? Cough that doesn???t go away. It can cause blood-tinged or frothy sputum. The severity of the condition and symptoms depends on how much of the heart's pumping ability has been affected. The first step in managing heart failure symptoms is knowing your baselines or what???s normal for you. How much do you weigh? Are you gaining weight but eating the same amount? How muchcan you do before you feel short of breath? Do your socks and shoes fit comfortably? Knowing what???s normal for you will help you see when symptoms are getting worse. Once you know your baselines, watch for changes daily. The symptoms of heart failure may look like other health problems. Always see your healthcare provider for a diagnosis. ?? How is heart failure diagnosed? Your healthcare provider will ask about your health history. He or she will give you a physical exam. You may need tests such as: ??? Chest X-ray. This test makes images of internal tissues, bones, and organs on film. This test shows the size and shape of your heart. Fluid in the lungs will also show up on X-ray. ??? Echocardiogram. This test is also called echo. It uses sound waves to assess themotion of the heart???s chambers and valves. The sound waves make an image on the screen as an ultrasound transducer is passed over the heart. This shows how well the heart pumps and relaxes. It alsoshows the thickness of the heart thomas, and if the heart is enlarged. It is one of the most useful tests because it shows a lot of information about the heart???s function. And it helps guide treatment choices. ??? Electrocardiogram (ECG). This test records the electrical activity of the heart. It shows abnormal rhythms. It can sometimes find heart muscle damage. ??? BNP testing. B-type natriuretic peptide (BNP) is a hormone released from the ventricles that occurs with heart failure. BNP levels are useful in the quick assessment of heart failure. The higher the BNP levels, the worse the heart failure. BNP is measured from a blood sample. ??? Cardiac MRI. This test uses a magnetic field to make images of the heart and its nearby tissues. It can assess how the heart muscle and valves are working. ?? How is heart failure treated??? The cause of heart failure will guide the treatment plan. If heart failure is caused by a valve problem or coronary heart disease, then you may need a procedure. This may be a percutaneous coronary intervention. Or it may be surgery. If heart failure is caused by a problem such as anemia or an infection, you may need medicine to treat this problem. Some causes of heart failure are reversible or short-term, such as in an acute infection. For many causes of heart failure there is no cure. But many forms of treatment can help with symptoms. They are listed below. Lifestyle changes These healthy habits may help with heart failure: ??? Controlling blood pressure ??? Controlling blood sugar if you have diabetes ??? Quitting smoking ??? Maintaining a healthy weight. Losing weight, if needed ??? Regular exercise ??? Limiting salt and fat in your diet ??? Not drinking alcohol or using illicit drugs ??? Getting enough rest ??? Reducing stress ??? Other important lifestyle habits include getting vaccines such as for the flu and pneumococcal pneumonia. If you have sleep problems, getting a sleep study get help find out what???s causing them. You may need to wear a C-PAP mask while you sleep. This will make sure you get enough oxygen. Too little oxygen can put stress on your heart. ?? Medicines Many types of medicines are available for heart failure. They include: ??? Angiotensin converting enzyme (HILARIO) inhibitors. These lower the pressure inside the blood vessels. This reduces the pressurethat the heart has to pump against. They can also help the heart have better pumping ability over time. ??? Angiotensin receptor blockers (ARB). Some people get a cough and need to stop taking HILARIO inhibitors. If that happens, an ARB may work for you. These help relax blood vessels and reduce stresson the heart. ??? Angiotensin receptor- neprilysin inhibitors (ARNIs). This medicine combines an ARBand a neprilysin inhibitor. This can help the heart as noted above. And it can promote salt and water loss. ??? Sinus node I-f channel dorina . This may be used to lower your heart rate. Then then puts less stress on your heart. ??? Diuretics. These reduce the amount of fluid in the body. They areamong the most important medicines in helping control fluid buildup in the body. ??? Vasodilators. These include hydralazine and nitroglycerin. These widen (dilate) the blood vessels. They reduce theworkload on the heart. ??? Digitalis. This medicine helps the heart beat stronger. It may help withcontrolling heart rate if there is an abnormal heart rhythm. ??? Antiarrhythmics. These help keep normal heart rhythm. ??? Beta-blockers. These reduce the heart???s tendency to beat faster. They can also help the heart pump better over time. ??? Aldosterone blockers. This blocks the effects of the hormone aldosterone. This hormone causes sodium and water retention. ??? Statins or PCSK9 inhibitors. These lower the amount of bad cholesterol in your blood. They are not used to treat heart failure.But you may take one if you have high cholesterol. Or you may take one if you have had a past heartattack and are at risk for heart failure. People who have inherited forms of high cholesterol (familial hypercholesterolemia) may get help from PCSK9 inhibitors. These medicines lower cholesterol. ??? Sodium-glucose cotransporter-2 (SGLT2) inhibitors. These medicines are for people with heart failure with reduced ejection fraction. They block your kidneys from reabsorbing sugar from the blood. This helps your body get rid of extra salt and water and so lowers your blood pressure. Lowering your blood pressure eases the strain on your heart. Your provider may prescribe an SGLT2 inhibitor if other treatment isn???t working. ?? Heart procedures These include opening blocked arteries in the heart. This brings back blood flow to the heart muscle. It helps the ventricles squeeze as they should. The procedure can be done in the cardiac catheterization lab. It uses balloons to push plaque and blood clots out of the artery. It also uses stents to keep the artery open. This can also be done by bypassing blockages during surgery (coronary artery bypass surgery). ?? Heart valve repair or replacement In some cases medicines can???t help heart failure caused by heart valves that are narrowed (stenosed) or leak (regurgitant). The heart valve can be repaired or replaced. This can be done as an open-heart procedure. Or it can be done by going through a small tube (catheter) that is put into an artery or vein. ?? Pacemaker If your heart failure has also damaged your heart???s electrical wiring system, a pacemaker can be implanted. This is done to restore normal heart rate and regularity. A cardiac resynchronizing pacemaker is used when 1 of the heart wires is damaged. This is often the wire located in the left ventricle. These pacemakers use implanted left and right sided wires to restore normal timing of the heartcontraction in order to improve heart function. ?? ICD (implantable cardioverter defibrillator) When heart muscle is damaged, dangerous heart circuits can form in the heart muscle. This leads to heart rhythms that can cause . An ICD is implanted in the body to sense and treat these cardiacarrest rhythms. It does this by overdrive pacing the heart rhythm. Or it sends an energy shock to the heart. ?? VAD (ventricular assist device) This device is put in the chest during a surgery. It connects to an outside motor. The motor helps pump blood from the heart to the rest of the body. VADs can allow people with advanced heart failureto improve their overall symptoms and to walk more. This can be used as a long-term treatment. Or it can be used while someone waits for a donor heart for a transplant. ?? Heart transplant In some cases, the diseased heart must be replaced with a healthy one from a donor. Talk with your healthcare providers about the risks, benefits, and possible side effects of all treatments. ? What are possible complications of heart failure? Complications of heart failure include: ??? Fluid buildup in the lungs (pulmonary edema) ??? Kidney and liver failure ??? Stroke ??? Abnormal heart rhythms ??? How daily issues affect your health Many things in your daily life impact your health. This can include transportation, money problems,housing, access to food, and school child care attendant. If you can???t get to medical appointments, you may not receive the care you need. When money is tight, it may be difficult to pay for medicines. And living far from a grocery store can make it hard to buy healthy food. If you have concerns in any of these or other areas, talk with your healthcare team. They may know of local resources to assist you. Or they may have a staff person who can help. ? Chris points about heart failure ??? When you have heart failure, the heart can???t pump as well as it should. ??? Heart failure may result from health problems that affect the heart, such as high blood pressure, coronary artery disease, and heart attack. ??? Some common symptoms are shortness of breath, weight gain, and visible swelling of the legs and ankles. ??? A chest X-ray can help diagnose lung congestion. ??? Treatment varies based on the cause of heart failure. Most people are advised tomake certain lifestyle changes and to take certain medicines, often for life. Procedures such as coronary intervention and surgery may be needed. ?? Next steps Tips to help you get the most from a visit to your healthcare provider: ??? Know the reason for your visit and what you want to happen. ??? Before your visit, write down questions you want answered. ??? Bring someone with you to help you ask questions and remember what your provider tells you. ??? At the visit, write down the name of a new diagnosis, and any new medicines, treatments, or tests. Also write down any new instructions your provider gives you. ??? Know why a new medicine or treatment is prescribed, and how it will help you. Also know what the side effects are. ??? Ask if your condition can be treated in other ways. ??? Know why a test or procedure is recommended and what the results could mean. ??? Know what to expect if you do not take the medicine or have the test or procedure. ??? If you have a follow-up appointment, write down the date, time, and purpose for that visit. ??? Know how you can contact your provider if you have questions. ?? Last Reviewed Date: 2020 ?? [employer] All rights reserved. This information is not intended as a substitute for professional medical care. Always follow your healthcare professional's instructions. ?? * Ashia Sahu RN: PERFORM Event Display: Patient Education Leaflets Authored Date: [id number] Discharge Instructions for Heart Failure ?? 82102 Discharge Instructions for Heart Failure The heart is a muscle that pumps oxygen-rich blood to all parts of the body. When you have heart failure, the heart is not able to pump as well as it should. Blood and fluid may back up into the lungs. Some parts of the body don???t get enough oxygen-rich blood to work normally. These problems leadto the symptoms of heart failure. Heart failure can occur because of an injury to the heart or fromnatural processes.??You can control symptoms of heart failure with some lifestyle changes and by following your doctor's advice. Activity Ask your healthcare provider about an exercise program. Simple activities such as walking or gardening can help. Exercising most days of the week can make you feel better. Don't be discouraged if your progress is slow at first. Rest as needed. Stop activity if you get symptoms such as chest pain, lightheadedness, or shortness of breath. Find activities that you enjoy. Examples might be brisk walking, dancing, swimming, and gardening. These will help you stay active and strengthen your heart. Ask your healthcare provider about cardiac rehab. This is a program that helps you to exercise safely. ?? Diet Follow a heart healthy diet. And make sure to limit the salt (sodium) in your diet. Salt causes your body to hold water. This makes your heart work harder because there is more fluid for the heart topump. Limit your salt as directed by your healthcare provider by doing the following: ??? Limit canned, dried, packaged, and fast foods. ??? Don't add salt to your food. ??? Season foods with herbs instead of salt. ??? Watch how much liquids you drink. Drinking too much can make heart failure worse. Talk with your healthcare provider about how much you should drink each day. ??? Limit the amount of alcohol you drink. It may harm your heart. Women should have no more than 1 drink a day. Men should have no more than 2 a day. ??? Ask that your meals have no added salt when you eat out. ??? Talk with your healthcare provider before using salt substitutes. They often have potassium in them. Thismay not be good for your health. This will depend on how well your kidneys are working and what medicines you???re taking. Some people need extra potassium. Others don???t. ?? Tobacco It's important to quit if you smoke. Smoking increases your chances of having a heart attack by harming the blood vessels that provide oxygen to your heart. This makes heart failure worse. Quitting smoking is the number one thing you can do to improve your health. Enroll in a stop-smoking program to improve your chances of success. Talk with your healthcare provider??about medicines or nicotine replacement therapy. Also ask your healthcare provider about smoking cessation support groups. ?? Medicine Take your medicines exactly as prescribed. Learn the names and purpose of each of your medicines. Keep an accurate medicine list and current dosages with you at all times. Don't skip doses. If you miss a dose of your medicine, take it as soon as you remember. If you miss a dose and??it's almost time for your next dose, just wait and take your next dose at the normal time. Don't take a double dose. If you are unsure, call your doctor's office. Make sure not to mix up your medicines or forget what you've taken the same day. Refill your prescriptions before you run out of medicine. Talk with your healthcare provider if you have trouble with the cost of your medicines. ?? Weight monitoring Weigh yourself every day. A sudden weight gain can mean your heart failure is getting worse. Weigh yourself at the same time of day and in the same kind of clothes. Ideally, weigh yourself first thing in the morning after you empty your bladder, but before you eat breakfast. Your healthcare provider will show you how to track your weight. They will also tell you when you should call if you have asudden, unexpected increase in your weight. In general, your healthcare provider may ask you to report if your weight goes up by more than 2 pounds in 1 day,?? 5 pounds in 1 week, or whatever weight gain you were told by your doctor. This is asign that you are retaining more fluid than you should be. Clues to weight gain include checking your ankles for swelling, or noticing you are short of breath when you lie down. ?? Follow-up care Have a follow-up appointment as instructed. Depending on the type and severity of heart failure youhave, you may need follow-within 7 days from hospital discharge. Keep appointments for checkups andlab tests that are needed to check your medicines and condition. Recognize that your health and even survival depend on you following your provider's advice. ?? Symptoms Heart failure can cause a variety of symptoms. They include: ??? Shortness of breath ??? Trouble breathing at night, especially when you lie down ??? Swelling in the legs and feet or in the belly (abdomen) ??? Becoming easily tired ??? Irregular or rapid heartbeat ??? Weakness or lightheadedness ??? Swelling of the neck veins It's important to know what to do if symptoms get worse or if you develop signs of worsening heart failure. Keep track of how you feel each day. Report any changes to your healthcare provider. ?? When to call your healthcare provider Call your healthcare provider right away if you have any of these signs of worsening heart failure:??? Sudden weight gain. This means more than 2 pounds in 1 day or 5??pounds in 1 week, or whatever weight gain you were told to report by your doctor. ??? Trouble breathing not related to being active ??? New or increased swelling of your legs or ankles ??? Swelling or pain in your abdomen ??? Breathing trouble at night. This means waking up short of breath or needing more pillows to breathe. ???Frequent coughing that doesn't go away ??? Feeling much more tired than usual ?? Call 911 Call 911 right away if you have: ??? Severe shortness of breath, such that you can't catch your breath even while??resting ??? Severe chest pain that does not resolve with rest or nitroglycerin ??? [place], foamy mucus with cough and shortness of breath ??? An ongoing rapid or irregular heartbeat ??? Passing out or fainting ??? Stroke symptoms such as sudden numbness or weakness on one side of your face, arm, or leg or sudden confusion, trouble speaking or vision changes ?? Last Reviewed Date: 2021 ?? [id number] [employer] All rights reserved. This information is not intended as a substitute for professional medical care. Always follow your healthcare professional's instructions. ?? * Event Display: Cardiac Rhythm Strips Authored Date: [id number] * [facility] , CIS S: TRANSCRIBE Ashley BYRNE, Maria De Jesus S: VERIFY Event Display: Result: Authored Date: [id number] Chest 2 Views Frontal and Lat Hx of Present Illness: four days of chest heaviness, arm weakness, feeling short of breath, hx of afib was cardioverted in june.; Reason: Other:; Chest Pain; Clinical Question(s): Other: COMPARISON: 06/22/2022 FINDINGS: LINES AND TUBES: None. LUNGS AND PLEURA: Coarsened moderately increased interstitial markings to bilateral lungs, with hazy right greater than left basilar opacity, may represent atelectasis versus effusion. No large pneumothorax. HEART, MEDIASTINUM AND SADIE: Heart is at the upper limits of normal for size. Normal mediastinal and hilar contour. BONES AND SOFT TISSUES: No acute abnormality. IMPRESSION: Coarsened moderately increased interstitial markings, nonspecific, may be seen with pulmonary edemaversus interstitial infectious odontoid process. Findings are similar to slightly progressed compared to prior study. WSN: [id number] Ordering Physician: Adriel Olmos MD Dictated By: Maria De Jesus Ramirez MD Dictated Date/Time: 08/04/22 11:40 a Reviewed By: Maria De Jesus Ramirez MD Signed By: Maria De Jesus Ramirez MD Signed Date/Time: 08/04/22 11:40 am Transcribed By: SHAYY Transcribed Date/Time: 08/04/22 11:24 am Hospital Progress note * Edna Kelly RN: PERFORM, SIGN, VERIFY Event Display: Progress Note Hospital Authored Date: [id number] Patient: LEIDY GAMBINO Age: 61 years Sex: Male : 1960 Associated Diagnoses: None Author: Edna Kelly RN Findings Nursing Data Vital Signs : VITAL SIGNS SECTION 08/06/2022 19:56 EST Temperature 98.2 DegF Temperature Route Oral Pulse Rate 69 bpm Respiratory Rate 18 br/min Systolic Blood Pressure 138 mm Hg Diastolic Blood Pressure 85 mm Hg H Blood pressure sites Arm, left Mean Arterial Pressure 103 mm Hg Pulse Pressure 53 mm Hg Oxygen Saturation 97 % Mode of Delivery (Oxygen) Room air . Narrative/Incidental Pt is alert & oriented, denies chest pain, dyspnea, dizziness while being loaded on Sotalol. Lungs clear, bowel sounds present, vitals stable, telemetry in place, SR 60s. IV Lasix is being given twice a day for CHF. Pt has been walking in the halls. No acute changes throughout the night. Safetymaintained, call light within reach and will continue to monitor.. * Jackson Carroll: PERFORM, SIGN, VERIFY Event Display: Progress Note Hospital Authored Date: [id number] Patient: LEIDY GAMBINO Age: 61 years Sex: Male : 1960 Associated Diagnoses: None Author: Jackson Carroll Findings Problem Related to Alteration in Cardiac Function (new) : Alteration in Cardiac Function/new 08/06/2022 12:00 EST Alteration in Cardiac Status Related to Cardiac Procedure, Chest pain, Dysrhythmia, Other: SOB and chest pressure Goals & Outcomes, Cardiac Status Pt will resume/maintain adequate cardiac output, Pt will resume/maintain adequate respiratory function, Pt will maintain adequate GI/ function appropriate for pt, Pt will maintain adequate nutrition status, Pt/caregiver will state understanding of diagnosis, Pt/caregiver will state strategies to reduce risk factors Cardiac Interventions Implemented Assess/monitor cardiac status, Assess/monitor neuro status, Assess/monitor respiratory status, Assess for tolerance of IV infusions; verify rate & dose, Call/Report variances in ECG to provider, Document & Monitor O2 Sats; Administer O2 as ordered, Ensure adequate caloric intake, If no bowel movement in 3 days activate bowel regime, Monitor & document daily weight, Monitor anticoagulation values, Monitor ECG w/administration of antiarrhythmics (CO 13.420), Obtain 12 Lead ECG and CXR as ordered, Prep pt for treatments & procedures, Teach/encourage deep breath & cough exercises, Teach/encourage use of incentive spirometer, Team conversation regarding appropriate level of care, Turn & reposition Q2 hours per activity restrictions, Useadjunctive therapies per Standards of Practice Goals/Interventions, Cardiac Yes Cardiac, Problem Start 08/05/2022 11:07 Reviewed Plan with, Cardiac Status Patient Patient Progression, Cardiac Status Patient progressing according to plan . Nursing Data Cardiac Data. : Cardiac Data. 08/06/2022 15:00 EST Cardiovascular Assessment Status Changes from recorder's assessment Cardiac Rhythm Normal sinus rhythm 08/06/2022 8:47 EST Cardiovascular Symptoms Edema present, Hypertension Nail Bed Color, Fingers [place] Nail Bed Color, Toes [place] Skin Temperature Upper Extremities Warm Skin Temperature Lower Extremities Warm Heart Sounds S1, S2 Heart Rhythm Irregular Cardiac Rhythm Atrial flutter Capillary Refill < 3 seconds Radial Pulse, Left Normal Radial Pulse, Right Normal Dorsalis Pedis Pulse, Left Normal Dorsalis Pedis Pulse, Right Normal Ankle, left 2+ mild, Pitting Ankle, right 2+ mild, Pitting Pedal, left 2+ mild, Pitting Pedal, right 2+ mild, Pitting potline monitor Yes Cardiovascular WNL except . Vital Signs : VITAL SIGNS SECTION 08/06/2022 13:00 EST Temperature 98.6 DegF Temperature Route Oral Pulse Rate 71 bpm Respiratory Rate 18 br/min Systolic Blood Pressure 130 mm Hg Diastolic Blood Pressure 86 mm Hg H Blood pressure sites Arm, left Pulse Pressure 44 mm Hg Oxygen Saturation 95 % Liters per Minute 0 L/min Mode of Delivery (Oxygen) Room air 08/06/2022 10:13 EST Early Warning Score 4.00 08/06/2022 10:13 EST Temperature 97.8 DegF Temperature Route Temporal Pulse Rate 65 bpm Respiratory Rate 17 br/min Systolic Blood Pressure 141 mm Hg H Diastolic Blood Pressure 92 mm Hg H Blood pressure sites Arm, left Mean Arterial Pressure 108 mm Hg Pulse Pressure 49 mm Hg Oxygen Saturation 93 % L Mode of Delivery (Oxygen) Room air . Narrative/Incidental Alert and oriented x3. Cardioversion this morning. Patient returned alert and oriented x3, sinus rhythm, hypertensive. Continuing Sotalol, EKG obtained two hours after dose, see note for details. No acute events in afternoon. Will continue to monitor. . Discharge Information Pulmonary Rehab Discharge : Pulmonary Rehab Discharge Status 08/05/2022 3:38 EST CPAP/BiPAP Mask Type Full CPAP/BiPAP Mask Size Large 08/05/2022 1:54 EST CPAP/BiPAP Mask Type Full CPAP/BiPAP Mask Size Large * Maikol Nguyễn MD: PERFORM Event Display: Progress Note Hospital Authored Date: Patient: ??LEIDY GAMBINO ? Age:??61 Years?Sex:??Male?:??1960?? Subjective Patient seen and examined this afternoon.?? Patient is resting comfortably in his bed. ??No new complaints.?? Status post cardioversion??back to normal sinus rhythm this morning. Review of Systems Review of system apart from the ones mentioned in the subjective were negative Allergies Allergies ?(Active and Proposed Allergies Only) lisinopril? (Severity: Unknown severity, Onset: Unknown) penicillins? (Severity: Unknown severity, Onset: Unknown) ?Reactions: Rash ? Past Medical History Active Problems??(9) Benign essential hypertension Bilateral knee pain Diverticulosis Hemorrhoids Migraine Obesity JR (obstructive sleep apnea) Severe obesity Sleep related hypoventilation/hypoxemia in other disease ? Objective Measurements?? Height: 178 cm (08/06/22) Weight: 148.1 kg (08/06/22) Dry Weight: 147 kg (08/04/22) Body Mass Index:??46.4 kg/m2??Critical (08/04/22) ? Vital Signs?? Temperature: 98.6 DegF (08/06/22 13:00:00) Temperature Route: Oral (08/06/22 13:00:00) Pulse Rate: 71 bpm (08/06/22 13:00:00) Respiratory Rate: 18 br/min (08/06/22 13:00:00) Systolic Blood Pressure: 130 mm Hg (08/06/22 13:00:00) Diastolic Blood Pressure:??86 mm Hg??High (08/06/22 13:00:00) Blood pressure sites: Arm, left (08/06/22 13:00:00) Mean Arterial Pressure: 108 mm Hg (08/06/22 10:13:00) Pulse Pressure: 44 mm Hg (08/06/22 13:00:00) Oxygen Saturation: 95 % (08/06/22 13:00:00) Liters per Minute: 0 L/min (08/06/22 13:00:00) Mode of Delivery (Oxygen): Room air (08/06/22 13:00:00) Early Warning Score: 2 (08/06/22 13:40:17) ? Pain Scores?? No qualifying data available. ? Intake/Output? 08/04 19:09 08/06 07:00 08/05 07:00 08/04 07:00 08/03 07:00 ?? 08/06 14:16 08/06 14:16 08/06 06:59 08/05 06:59 08/04 06:59 Intake ?630 ?0 ?630 ?0 ?0 Output ? 4025 ?800 ? 2775 ?450 ?0 Net Total ?-3395 ? -800 ?-2145 ? -450 ?0 ? Urine Count ?2 ?0 ?2 ?0 ?0 ? Physical Exam Constitutional: Alert, in no acute distress. Head EENT: Extraocular muscle movement intact.??Moist mucous membranes.?? Neck: Supple. No JVD. Respiratory: Clear to auscultation. No wheezing or crackles. No use of accessory muscles. Cardiovascular: S1S2 regular. No murmurs, rubs or gallops. Gastrointestinal: Abdomen soft, non-tender, non-distended. Normal bowel sounds. Genitourinary: No CVA tenderness. Extremities: No lower extremity pitting??edema. No cyanosis or clubbing. Neurologic: AAOx3, Speech normal. No focal neurological deficits. Skin: No rash. Psychiatric: Normal mood and affect _ Inpatient Medications Medications (15) Active SCHEDULED: (8) Apixaban 5 mg Tablet (Eliquis) ??5 mg, By Mouth, 2 times a day Aspirin 81 mg Chew Tablet (aspirin 81 mg oral tablet, chewable) ??81 mg, By Mouth, Daily Doxazosin 2 mg Tablet (doxazosin 2 mg oral tablet) ??4 mg, By Mouth, Daily Furosemide Inj (Furosemide ??Inj) ??40 mg 4 mL, IV Push Slowly, 2 times a day Gabapentin 100 mg Capsule (gabapentin 100 mg oral capsule) ??200 mg, By Mouth, Daily at bedtime Losartan 25 mg Tablet (losartan 25 mg oral tablet) ??25 mg, By Mouth, Daily NaCl 0.9% Flush 3ml (NaCL 0.9% Flush) ??3 mL, IV Push, Every 8 hours Sotalol 80 mg Tablet (sotalol 240 mg oral tablet) ??120 mg, By Mouth, 2 times a day CONTINUOUS: (0) PRN: (7) Acetaminophen 325 mg Tablet (Acetaminophen Tablet) ??650 mg, By Mouth, Every 4 hours Acetaminophen/Butalbital/Caffeine Tablet (Fioricet Tablet) ??2 tablet, By Mouth, Every 4 hours Dextromethorphan-Guaifenesin 20 mg-200 mg/10 mL Liqu UD (Robitussin DM Liquid) ??10 mL, By Mouth, Every 4 hours Melatonin 3 mg Tablet (Melatonin Tablet) ??3 mg, By Mouth, Daily at bedtime NaCl 0.9% Flush 3ml (NaCL 0.9% Flush) ??3 mL, IV Push, Every 8 hours Ondansetron 2mg/mL Inj (2mL Vial) (Ondansetron Inj) ??4 mg, IV Push, Every 4 hours Senna 8.6 mg / Docusate 50 mg tablet (Docusate/Senna Tablet) ??1 tablet, By Mouth, 2 times a day ? Results Recent Labs CHEM GENERAL Sodium 144 mmol/L ()?? 08/06/2022 07:58 Potassium 3.8 mmol/L ()?? 08/06/2022 07:58 Chloride 105 mmol/L ()?? 08/06/2022 07:58 Bicarbonate Level 28 mmol/L ()?? 08/06/2022 07:58 Anion Gap 11 ()?? 08/06/2022 07:58 Glucose Level 105 mg/dL (High)?? 08/06/2022 07:58 BUN 6 mg/dL (Low)?? 08/06/2022 07:58 Creatinine-Blood 0.7 mg/dL ()?? 08/06/2022 07:58 Estimated GFR Creatinine 104 ML/MIN/1.73 M2 ()?? 08/06/2022 07:58 Calcium 8.9 mg/dL ()?? 08/06/2022 07:58 Magnesium 2.2 mg/dL ()?? 08/06/2022 07:58 ? Abnormal Labs ?? CHEM GENERAL ??BUN ??6 mg/dL (Low) ??08/06/2022 07:58 ??Estimated GFR Creatinine ??104 ML/MIN/1.73 M2 () ??08/06/2022 07:58 ??Glucose Level ??105 mg/dL (High) ??08/06/2022 07:58 ? Note: Critical results are displayed in red. ? Assessment/Plan ? Diagnoses Atrial flutter ??(I48.92) Unstable angina ??(I20.0) ?? 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 Patient was found to be in acute on chronic diastolic heart failure secondary to??A. fib/flutter with RVR.?? Patient was cardioverted on??08/06/2022??back to normal sinus rhythm.?? Patient is being diuresed with IV Lasix 40 mg twice daily.?? He had failed second line therapy. ??Patient was started on sotalol??120 mg twice daily. ??Patient has received??3 doses of sotalol so far.?? Monitoring QTC??4??5 total dosage.?? Potential discharge tomorrow in the afternoon to home. ?? Acute on chronic diastolic heart failure Continue Lasix 40 mg IV twice daily, monitor I's and O's, daily serum creatinine monitoring Continue??metoprolol ?? Paroxysmal atrial??fibrillation/flutter with RVR Status post cardioversion??on??08/06/2022 Rate/rhythm control-sotalol,??monitor QTC 4 5 total dosage Anticoagulation-Eliquis ?? JR on CPAP Continue??nocturnal CPAP ?? Hypertension Continue metoprolol, started on losartan 25 mg daily??(allergy to HILARIO), continue doxazosin ?? BPH Doxazosin ?? Diet-cardiac diet ?? CODE STATUS-full code ?? DVT prophylaxis-Eliquis ?? Disposition-potentially to home tomorrow??after 5 doses of??sotalol ? Electronically signed: ?? Maikol Nguyễn MD. ?Order Date/Time ??Order Action ??Order Name ??Order Detail ??08/06/2022 14:15 ??Order ??Losartan 25 mg Tablet ??25 mg, By Mouth, Daily ??08/06/2022 10:13 ??Discontinue ??NPO after Midnight Except for Meds ??08/06/22 0:01:00 EST ??08/06/2022 07:44 ??Order ??Change Attending, /DO ??Gopi BYRNE, Maikol, 08/06/22 7:44:00 EST ??08/06/2022 07:44 ??Discontinue ??Change Attending, MD/DO ??Kevin BYRNE, Duran Brown, 08/05/22 8:23:00 EST ? Patient Care team information Care Team Personnel Name: Luis Varma RN Position: [facility] RN Member Role: Primary Care Nurse Name: Brittani Anguinao RN Position: [facility] RN Member Role: Primary Care Nurse Name: Cortez Blunt MD Position: [facility] Primary Care Physician Member Role: PCP Address: Address: [address] [place] [id number]- Name: Edna Kelly RN Position: [facility] RN Member Role: Primary Care Nurse Name: Ron Babb RN Position: [facility] RN Member Role: Primary Care Nurse Name: Krystin BEVERLY Attending Position: [facility] ED Medicine MD Name: Isidro Ashton DO Position: [facility] Resident Member Role: ED Resident Address: Address: [address] [place] [address] [place] [address]- Name: Lulu Nevarez Position: [facility] ED OA Charge Member Role: ED Associate Name: Ariella Golden Position: [facility] ED TA [facility] Member Role: Labor Employment Associate Name: Blair Harley RN Position: [facility] ED RN W/OE and Tasks Member Role: Patient Care Provider Care Team Related Persons Name: CECY GAMBINO Address: home [address] [place] [address] Name: LEIDY GAMBINO JR Address: home [address] [place] [address]
--- OUTSIDE RECORDS SUMMARY | 2024-05-03 22:12 | XMS_ITS | Continuity of Care Document ---
Author Organization [facility] Darrell lt Address [address] [place] [address]- Care Team Providers Care Pm Technician Name Role Phone Merlene BYRNE, Cortez Kendall Primary Care Physician [place] [facility] [place]): 03/29/20 - 04/28/20 [facility] Adult [address] [place] [address]- [facility] Allergies, Adverse Reactions, Alerts Substance Reaction Severity Status penicillins Rash Active Immunizations Given and Recorded Vaccine Date Status Refusal Reason tetanus/diphtheria/pertussis, acel(Tdap) 1 12/20/17 Given Not Given Vaccine Date Status Refusal Reason Influenza Virus Vaccine (oldterm) 06/21/19 Not Giv en Patient Refuses 1Result Comment: [12/20/2017] [facility] [id number] Medications amLODIPine 10 mg oral tablet 10 mg, 1, tablet, By Mouth, Daily, # 30 tablet, Refills 5, Tot. Refills 5, Soft Stop, 03/29/20 15:08:00 EDT, Route to Pharmacy Electronically, [facility]/pharmacy #[id number], 176.4, cm, 10/19/19 6:57:00 EDT, Height Start Date: 03/29/20 Status: Ordered aspirin 81 mg oral tablet 1 tablet = 81 mg, By Mouth, Daily, # 30 tablet, 0 Refills, Maintenance, 03/11/17 15:49:45, Tablet Start Date: 03/11/17 Status: Ordered doxazosin 4 mg oral tablet 1 tablet, By Mouth, Daily, # 30 tablet, 2 Refills, Maintenance, 02/19/20 16:43:00 EDT, [facility]/pharmacy#[id number], 176.4, cm, 10/19/19 6:57:00 EDT, Height Start Date: 02/19/20 Status: Ordered furosemide 20 mg oral tablet 20 mg, 1, tablet, By Mouth, Daily, # 30 tablet, Refills 2, Tot. Refills 2, Maintenance, 02/19/20 16:43:00 EDT, Route to Pharmacy Electronically, [facility]/pharmacy #[id number], 176.4, cm, 10/19/19 6:57:00 EDT, Height Start Date: 02/19/20 Status: Ordered irbesartan 150 mg oral tablet 1 tablet, By Mouth, Daily, # 30 tablet, 2 Refills, Maintenance, 02/19/20 16:43:00 EDT, [facility]/pharmacy#[id number], 176.4, cm, 10/19/19 6:57:00 EDT, Height Start [...]
--- OUTSIDE RECORDS SUMMARY | 2024-05-03 22:12 | XMS_ITS | Continuity of Care Document ---
Author Organization [facility] Address [address] [place] [address]- Care Team Providers Care Senior Windows Administrator Name Role Phone Merlene BYRNE, Cortez Kendall Primary Care Physician [place] [facility] [place] 09/24/22 [facility] [address] [place] [address]- [place] Allergies, Adverse Reactions, Alerts Substance Reaction Severity Status lisinopril Active penicillins Rash Active Immunizations Given and Recorded Vaccine Date Status Refusal Reason tetanus/diphtheria/pertussis, acel(Tdap) 1 12/20/17 Given Not Given Vaccine Date Status Refusal Reason Influenza Virus Vaccine (oldterm) 06/21/19 Not Giv en Patient Refuses 1Result Comment: [12/20/2017] [facility] [id number] Medications Acetaminophen Daily, 0 Refills, Maintenance, 09/10/22 8:02:00 EST, Partial fill upon patient request if the prescription is for a schedule II opioid drug. Start Date: 09/10/22 Status: Ordered amiodarone 200 mg oral tablet 200 mg, 1, tablet, By Mouth, Daily, # 30 tablet, Refills 0, Tot. Refills 0, Maintenance, 09/05/22 9:34:00 EST, Route to Pharmacy Electronically, [facility], Partial fill upon patient request [...] 0 Refills, Maintenance, 09/05/22 9:49:00 EST, Tablet, [facility], Partial fill upon patient request if the prescription is for a scheduleII opioid drug., 177.8, cm, 09/05/22 8:50:00 EST, H... Start Date: 09/05/22 Status: Ordered doxazosin 4 mg oral tablet 1 tablet, By Mouth, Daily, # 90 tablet, 1 Refills, Maintenance, 07/05/22 16:17:00 EST, [facility]/pharmacy#[id number], 178, cm, 07/01/22 7:55:00 EST, Height Start Date: 07/05/22 Status: Ordered Eliquis 5 mg oral tablet 1 tablet = 5 mg, By Mouth, 2 times a day, # 60 tablet, 5 Refills, Maintenance, 07/01/22 9:02:00 EST, Tablet, [facility]/pharmacy #[id number], Partial fill upon patient request if the prescription is for a schedule II opioid drug., 178, cm, 07/01/22 7:55:00 EST, He... Start Date: 07/01/22 Status: Ordered gabapentin 100 mg oral capsule 2, capsule, By Mouth, Daily at bedtime, # 60 capsule, Refills 2, Maintenance, 06/18/22 11:52:00 EST, Route to Pharmacy Electronically, [facility] STORE 03849, 176.4, cm, 05/15/22 11:35:00 EDT, Height Start Date: 06/18/22 Status: Ordered metoprolol succinate 100 mg oral capsule, extended release 1 capsule = 100 mg, By Mouth, Daily, # 30 capsule, 0 Refills, Maintenance, 09/05/22 9:33:00 EST, ERCapsule, [facility], Partial fill upon patient request [...] 09/05/22 9:32:00 EST, Route to Pharmacy Electronically, [facility], Partial fill upon patient request if the prescription is for a schedule II opioid... Start Date: 09/05/22 Status: Ordered Tadalafil (Eqv-Cialis) 20 mg oral tablet 1 tablet, By Mouth, Daily, PRN NEEDED FOR ERECTILE DYSFUNCTION, # 5 tablet, 2 Refills, Maintenance, 08/11/22 9:25:00 EST, [facility] 15589, 178, cm, 08/07/22 15:14:00 EST, Height, 147, kg, 08/04/2217:07:00 EST, Dry Weight Start Date: 08/11/22 Status: Ordered torsemide 20 mg oral tablet 1 tablet = 20 mg, By Mouth, 2 times a day, # 60 tablet, 0 Refills, Maintenance, 09/05/22 9:32:00 EST, Tablet, [facility], Partial fill upon patient request if the prescription is for a schedule II opioid drug., 177.8, cm, 09/05/22 8:50:0... Start Date: 09/05/22 Status: Ordered valsartan 40 mg oral tablet 80 mg, 2, tablet, By Mouth, 2 times a day, # 120 tablet, Refills 0, Tot. Refills 0, Maintenance, 09/05/22 9:33:00 EST, Route to Pharmacy Electronically, [facility], Partial fill upon patient request [...] Primary Care Nurse Name: Alanis Harris Position: [facility] RN Supv Member Role: Primary Care Nurse Name: Brittani Anguiano RN Position: S RN Member Role: Primary Care Nurse Name: Cortez Blunt MD Position: [facility] Primary Care Physician Member Role: PCP Address: Address: [address] [place] [id number] Name: Edna Kelly RN Position: S RN Member Role: Primary Care Nurse Name: Ron Babb RN Position: S RN Member Role: Primary Care Nurse Care Team Related Persons Name: CECY NGUYEN Address: home [address] [place] [address] Name: LEIDY NGUYEN JR Address: home [address] [place] [address]
--- OUTSIDE RECORDS SUMMARY | 2024-05-03 22:12 | XMS_ITS | Continuity of Care Document ---
Author Organization [facility] Darrell lt Address [address] [place] [address]- Care Team Providers Care Architect Name Role Phone Cortez Blunt MD Primary Care Physician En[id number] Date(s): 02/02/22 - 02/09/22 [facility] Adult [address] [place] [address]- Attending Physician: Cortez Blunt MD Allergies, Adverse Reactions, Alerts Substance Reaction Severity Status lisinopril Active penicillins Rash Active Immunizations Given and Recorded Vaccine Date Status Refusal Reason tetanus/diphtheria/pertussis, acel(Tdap) 1 12/20/17 Given Not Given Vaccine Date Status Refusal Reason Influenza Virus Vaccine (oldterm) 06/21/19 Not Giv en Patient Refuses 1Result Comment: [12/20/2017] [facility] 69798-362-56 Medications amLODIPine 10 mg oral tablet 1 tablet, By Mouth, Daily, # 90 tablet, 1 Refills, [facility], 176.4, cm, 08/15/21 9:23:00 EST, Height Start Date: 10/13/21 Status: Ordered aspirin 81 mg oral tablet 1 tablet = 81 mg, By Mouth, Daily, # 30 tablet, 0 Refills, Maintenance, 03/11/17 15:49:45, Tablet Start Date: 03/11/17 Status: Ordered doxazosin 4 mg oral tablet 1 tablet, By Mouth, Daily, # 90 tablet, 1 Refills, [facility], 176.4, cm, 08/15/21 9:23:00 EST, Height Start Date: 01/17/22 Status: Ordered gabapentin 100 mg oral capsule 200 mg, 2, capsule, By Mouth, Daily at bedtime, # 60 capsule, Refills 2, Tot. Refills 2, Maintenance, 11/06/21 16:34:00 EDT, Route to Pharmacy Electronically, [facility]/pharmacy #[id number], Partial fill upon patient request if the prescription is for a schedule... Start Date: 11/06/21 Status: Ordered Tadalafil (Eqv-Cialis) 20 mg oral tablet 1 tablet, By Mouth, Daily, PRN NEEDED FOR ERECTILE DYSFUNCTION, # 5 tablet, 2 Refills, [facility] [id number], 176.4, cm, 02/02/22 11:18:00 EDT, Height Start Date: 02/04/22 Status: Ordered Problem List Condition Effective Dates Status Health Status Inform ant Benign essential hypertension(Confirmed) Active Sleep related hypoventilation/hypoxemia in other disease(Confirmed) Active Diverticulosis(Confirmed) 1 Active Hemorrhoids(Confirmed) Active Bilateral knee pain(Confirmed) Active Migraine(Confirmed) Active Obesity(Confirmed) Active JR (obstructive sleep apnea)(Confirmed) Active Severe obesity(Confirmed) Active 1PER 03/02/14 COLONOSCOPY-DR ANABELLA CONCEPCION Vital Signs Most recent to oldest [Reference Range]: 1 2 Height 176.4 cm (02/02/22 11:18 AM) 176.4 cm (02/02/22 11:12 AM) Weight 147.6 kg (02/02/22 11:12 AM) Oxygen Saturation [94-100 %] 98 % (02/02/22 11:12 AM) Pulse Rate [55-90 bpm] 72 bpm (02/02/22 11:12 AM) Body Mass Index [18.5-24.99] 47.43 *>HHI* (02/02/22 11:12 AM) Blood Pressure [90-138/55-84 mm Hg] 132/ 76mm Hg (02/02/22 11:18 AM) 148/79mm Hg *H* (02/02/22 11:12 AM) Mode of Delivery (Oxygen) Room air (02/02/22 11:12 AM) Blood pressure sites Arm, left (02/02/22 11:18 AM) Arm, left (02/02/22 11:12 AM) Weight Obtained Via Standing scale (02/02/22 11:12 AM) Social History Social History Type Response Smoking Status Never smoker entered on: 03/11/17 Sex
--- OUTSIDE RECORDS SUMMARY | 2024-05-03 22:13 | XMS_ITS | Continuity of Care Document ---
Author Organization [facility] ter Address [address] [place] [address]- Care Team Providers Care Third Rigger Name Role Phone Merlene BYRNE, Cortez Kendall Primary Care Physician [facility] [id number] Date(s): 09/01/22 - 10/04/[address] [address] Attending Physician: Dilshad Vargas MD Admitting Physician: Dilshad Vargas MD Referring Physician: Dilshad Vargas MD Allergies, Adverse Reactions, Alerts Substance Reaction Severity Status lisinopril Active penicillins Rash Active Immunizations Given and Recorded Vaccine Date Status Refusal Reason tetanus/diphtheria/pertussis, acel(Tdap) 1 12/20/17 Given Not Given Vaccine Date Status Refusal Reason Influenza Virus Vaccine (oldterm) 06/21/19 Not Giv en Patient Refuses 1Result Comment: [12/20/2017] [facility] [id number] Medications Acetaminophen Daily, 0 Refills, Maintenance, 09/10/22 8:02:00 EST, Partial fill upon patient request if the prescription is for a schedule II opioid drug. Start Date: 09/10/22 Status: Ordered amiodarone 200 mg oral tablet 200 mg, 1, tablet, By Mouth, Daily, # 30 tablet, Refills 0, Tot. Refills 0, Maintenance, 09/05/22 9:34:00 EST, Route to Pharmacy Electronically, [facility], Partial fill upon patient request if the prescription is for a schedule II opioi... Start Date: 09/05/22 Status: Ordered amLODIPine 10 mg oral tablet 1 tablet, By Mouth, Daily, # 90 tablet, 3 Refills, Maintenance, 09/29/22 6:28:00 EST, [facility] 24446, 177.8, cm, 09/10/22 8:00:00 EST, Height, 146.1, [...] 0 Refills, Maintenance, 09/05/22 9:49:00 EST, Tablet, [facility], Partial fill upon patient request if the prescription is for a scheduleII opioid drug., 177.8, cm, 09/05/22 8:50:00 EST, H... Start Date: 09/05/22 Status: Ordered doxazosin 4 mg oral tablet 1 tablet, By Mouth, Daily, # 90 tablet, 1 Refills, Maintenance, 07/05/22 16:17:00 EST, [facility]/pharmacy#[id number], 178, cm, 07/01/22 7:55:00 EST, Height Start Date: 07/05/22 Status: Ordered Eliquis 5 mg oral tablet 1 tablet = 5 mg, By Mouth, 2 times a day, # 60 tablet, 5 Refills, Maintenance, 07/01/22 9:02:00 EST, Tablet, [facility]/pharmacy #[id number], Partial fill upon patient request if the prescription is for a schedule II opioid drug., 178, cm, 07/01/22 7:55:00 EST, He... Start Date: 07/01/22 Status: Ordered gabapentin 100 mg oral capsule 2, capsule, By Mouth, Daily at bedtime, # 60 capsule, Refills 2, Maintenance, 09/28/22 14:04:00 EST, Route to Pharmacy Electronically, [facility] 46375, 177.8, cm, 09/10/22 8:00:00 EST, Height, 146.1,kg, 08/29/22 15:57:00 EST, Dry Weight Start Date: 09/28/22 Status: Ordered metoprolol succinate 100 mg oral capsule, extended release 1 capsule = 100 mg, By Mouth, Daily, # 30 capsule, 0 Refills, Maintenance, 09/05/22 9:33:00 EST, ERCapsule, [facility], Partial fill upon patient [...] 09/05/22 9:32:00 EST, Route to Pharmacy Electronically, [facility], Partial fill upon patient request if the prescription is for a schedule II opioid... Start Date: 09/05/22 Status: Ordered Tadalafil (Eqv-Cialis) 20 mg oral tablet 1 tablet, By Mouth, Daily, PRN NEEDED FOR ERECTILE DYSFUNCTION, # 5 tablet, 2 Refills, Maintenance, 08/11/22 9:25:00 EST, [facility] STORE 06920, 178, cm, 08/07/22 15:14:00 EST, Height, 147, kg, 08/04/2217:07:00 EST, Dry Weight Start Date: 08/11/22 Status: Ordered torsemide 20 mg oral tablet 1 tablet = 20 mg, By Mouth, 2 times a day, # 60 tablet, 0 Refills, Maintenance, 09/05/22 9:32:00 EST, Tablet, [facility], Partial fill upon patient request if the prescription is for a schedule II opioid drug., 177.8, cm, 09/05/22 8:50:0... Start Date: 09/05/22 Status: Ordered valsartan 40 mg oral tablet 80 mg, 2, tablet, By Mouth, 2 times a day, # 120 tablet, Refills 0, Tot. Refills 0, Maintenance, 09/05/22 9:33:00 EST, Route to Pharmacy Electronically, [facility], Partial fill upon patient [...] Primary Care Nurse Name: Alanis Harris Position: [facility] RN Supv Member Role: Primary Care Nurse Name: Brittani Anguiano RN Position: S RN Member Role: Primary Care Nurse Name: Cortez Blunt MD Position: [facility] Primary Care Physician Member Role: PCP Address: Address: [address] [place] [address]- Name: Edna Kelly RN Position: S RN Member Role: Primary Care Nurse Name: Ron Babb RN Position: S RN Member Role: Primary Care Nurse Care Team Related Persons Name: CECY NGUYEN Address: home [address] [place] [address] Name: LEIDY NGUYEN JR Address: [address] [place] [address]
--- OUTSIDE RECORDS SUMMARY | 2024-05-03 22:13 | XMS_ITS | Continuity of Care Document ---
Author Organization [facility] Darrell Address [address] [place] [address]- Care Team Providers Care Hostage Negotiator Name Role Phone Merlene BYRNE, Cortez Kendall Primary Care Physician [place] [facility] [facility] [id number] Date(s): 01/24/24 - 02/23/24 [facility] Adult [address] [place] [address]- Allergies, Adverse Reactions, Alerts Substance Reaction Severity Status lisinopril cough Active penicillins Rash Active Immunizations Given and Recorded Vaccine Date Status Refusal Reason tetanus/diphtheria/pertussis, acel(Tdap) 1 12/20/17 Given 1Result Comment: [12/20/2017] [facility] [id number] Medications doxazosin 4 mg oral tablet 1 tablet, By Mouth, Daily, # 90 tablet, 3 Refills, Maintenance, 07/13/23 5:16:00 EST, [facility] 99886, 176.1, cm, 06/25/23 8:54:00 EST, Height, 146.1, kg, 08/29/22 15:57:00 EST, Dry Weight Start Date: 07/13/23 Status: Ordered Eliquis 5 mg oral tablet 1 tablet, By Mouth, 2 times a day, *STOP ASPIRIN*., # 60 tablet, 11 Refills, Maintenance, 07/13/23 5:16:00 EST, [facility] 34257, 176.1, cm, 06/25/23 8:54:00 EST, Height, 146.1, kg, 08/29/22 15:57:00 EST, Dry Weight Start Date: 07/13/23 Status: Ordered gabapentin 100 mg oral capsule 2, capsule, By Mouth, Daily at bedtime, # 180 capsule, Refills 1, Maintenance, 10/05/23 12:18:00 EST, Route to Pharmacy Electronically, [facility] 12534, 176.1, cm, 09/20/23 14:12:00 EST, Height, 146.1, kg, 08/29/22 15:57:00 EST, Dry Weight Start Date: 10/05/23 Status: Ordered Keppra 750 mg oral tablet 1 tablet = 750 mg, By Mouth, 2 times a day, # 60 tablet, 6 Refills, Maintenance, 01/10/24 8:04:00 EDT, Tablet, [facility]/pharmacy #[id number], Partial fill upon patient request if the prescription is for a schedule II opioid drug., 178, cm, 01/10/24 7:18:00 EDT,... Start Date: 01/10/24 Stop Date: 08/07/24 Status: Ordered Metoprolol Succinate ER 100 mg oral tablet, extended release 1 tablet, By Mouth, Daily, # 90 tablet, 3 Refills, Maintenance, 07/09/23 13:03:00 EST, [facility] 70671, 176.1, cm, 06/25/23 8:54:00 EST, Height, 146.1, [...] 01/10/24 8:07:00 EDT, Route to Pharmacy Electronically, [facility]/pharmacy #[id number], Partialfill upon patient request if the prescription is fo... Start Date: 01/10/24 Stop Date: 08/07/24 Status: Ordered spironolactone 25 mg oral tablet 1, tablet, By Mouth, Daily, # 90 tablet, Refills 1, Maintenance, 10/01/23 13:00:00 EST, Route to Pharmacy Electronically, [facility], 176.1, cm, 09/20/23 14:12:00 EST, Height, 146.1, kg, 08/29/22 15:57:00 EST, Dry Weight Start Date: 10/01/23 Status: Ordered Tadalafil (Eqv-Cialis) 20 mg oral tablet 1 tablet, By Mouth, Daily, PRN NEEDED FOR ERECTILE DYSFUNCTION, # 5 tablet, 2 Refills, Maintenance, 01/24/24 11:18:00 EDT, [facility], 178, cm, 01/20/24 12:42:00 EDT, Height, 159, kg, 11/30/23 18:35:00 EDT, Dry Weight Start Date: 01/24/24 Status: Ordered torsemide 20 mg oral tablet 1 tablet, By Mouth, 2 times a day, # 180 tablet, 3 Refills, Maintenance, 11/04/23 7:29:00 EDT, [facility] 15761, 176, cm, 10/25/23 12:56:00 EDT, Height, 146.1, kg, 08/29/22 15:57:00 EST, Dry Weight Start Date: 11/04/23 Status: Ordered valsartan 160 mg oral tablet 160 mg, 1, tablet, By Mouth, 2 times a day, # 180 tablet, Refills 4, Tot. Refills 4, Maintenance, 07/09/23 13:10:00 EST, Route to Pharmacy Electronically, [facility]/pharmacy #[id number], Partial fill upon patient request if the [...] Care Team Personnel Name: Alanis Harris Position: [facility] RN Supv Member Role: Primary Care Nurse Name: Brittani Anguiano RN Position: [facility] SN RN Member Role: Primary Care Nurse Name: Sherrell Yan RN Position: S RN Member Role: Primary Care Nurse Name: Cortez Blunt MD Position: [facility] Physician - Primary Care Member Role: PCP Address: Address: [address] [place] [id number] Name: Godwin Perkins RN Position: [facility] RN Member Role: Primary Care Nurse Name: Ron Babb RN Position: [facility] RN Member Role: Primary Care Nurse Care Team Related Persons Name: CECY NGUYEN Address: home [address] [place] [address] Name: LEIDY NGUYEN JR Address: [address] [place] [address]
--- OUTSIDE RECORDS SUMMARY | 2024-05-03 22:13 | XMS_ITS | Continuity of Care Document ---
Author Organization [facility] Darrell Address [address] [place] [address]- Care Team Providers Care Centrifugal Casting Machine Operator Name Role Phone Cortez Blunt MD Primary Care Physician [place] [facility] [place]15[place]22 - 05/22/22 [facility] Adult [address] [place] [address]- Attending Physician: Cortez Blunt MD Allergies, Adverse Reactions, Alerts Substance Reaction Severity Status lisinopril Active penicillins Rash Active Immunizations Given and Recorded Vaccine Date Status Refusal Reason tetanus/diphtheria/pertussis, acel(Tdap) 1 12/20/17 Given Not Given Vaccine Date Status Refusal Reason Influenza Virus Vaccine (oldterm) 06/21/19 Not Giv en Patient Refuses 1Result Comment: [12/20/2017] [facility] [id number] Medications amLODIPine 10 mg oral tablet 1 tablet, By Mouth, Daily, # 90 tablet, 1 Refills, Maintenance, 04/12/22 10:29:00 EDT, [facility] 46911, 176.4, cm, 02/02/22 11:18:00 EDT, Height Start Date: 04/12/22 Status: Ordered aspirin 81 mg oral tablet 1 tablet = 81 mg, By Mouth, Daily, # 30 tablet, 0 Refills, Maintenance, 03/11/17 15:49:45, Tablet Start Date: 03/11/17 Status: Ordered doxazosin 4 mg oral tablet 1 tablet, By Mouth, Daily, # 90 tablet, 1 Refills, [facility], 176.4, cm, 08/15/21 9:23:00 EST, Height Start Date: 01/17/22 Status: Ordered gabapentin 100 mg oral capsule 2, capsule, By Mouth, Daily at bedtime, # 60 capsule, Refills 2, Route to Pharmacy Electronically, [facility], 176.4, cm, 02/02/22 11:18:00 EDT, Height Start Date: 02/26/22 Status: Ordered Tadalafil (Eqv-Cialis) 20 mg oral tablet 1 tablet, By Mouth, Daily, PRN NEEDED FOR ERECTILE DYSFUNCTION, # 5 tablet, 2 Refills, Maintenance, 04/12/22 10:29:00 EDT, [facility], 176.4, cm, 02/02/22 11:18:00 EDT, Height Start [...] [Reference Range]: 1 2 Height 176.4 cm (05/15/22 11:35 AM) 176.4 cm (05/15/22 11:29 AM) Weight 144.1 kg (05/15/22 11:29 AM) Oxygen Saturation [94-100 %] 97 % (05/15/22 11:29 AM) Pulse Rate [55-90 bpm] 68 bpm (05/15/22 11:29 AM) Body Mass Index [18.5-24.99 kg/m2] 46.31 kg/m2 *>HHI* (05/15/22 11:29 AM) Blood Pressure [90-138/55-84 mm Hg] 144/ 80mm Hg *H* (05/15/22 11:35 AM) 141/80mm Hg *H* (05/15/22 11:29 AM) Mode of Delivery (Oxygen) Room air (05/15/22 11:29 AM) Blood pressure sites Arm, left (05/15/22 11:35 AM) Arm, left (05/15/22 11:29 AM) Weight Obtained Via Standing scale (05/15/22 11:29 AM) Social History Social History Type Response Smoking Status Never smoker entered on: 03/11/17 Sex Patient Care team information Personnel Name: Merlene BYRNE, Cortez Kendall Address: Address: [address] [place] [id number]
--- OUTSIDE RECORDS SUMMARY | 2024-05-03 22:13 | XMS_ITS | Continuity of Care Document ---
Author Organization [facility] Address [address] [place] [address]- Care Team Providers Care Buck Swamper Name Role Phone Merlene BYRNE, Cortez Kendall Primary Care Physician En[place] [facility] [place] Date(s): 11/06/21 - 12/06/21 [facility] Adult [address] [place] [address]- Allergies, Adverse Reactions, Alerts Substance Reaction Severity Status lisinopril Active penicillins Rash Active Immunizations Given and Recorded Vaccine Date Status Refusal Reason tetanus/diphtheria/pertussis, acel(Tdap) 1 12/20/17 Given Not Given Vaccine Date Status Refusal Reason Influenza Virus Vaccine (oldterm) 06/21/19 Not Giv en Patient Refuses 1Result Comment: [12/20/2017] [facility] 60959-178-37 Medications amLODIPine 10 mg oral tablet 1 tablet, By Mouth, Daily, # 90 tablet, 1 Refills, [facility], 176.4, cm, 08/15/21 9:23:00 EST, Height Start Date: 10/13/21 Status: Ordered aspirin 81 mg oral tablet 1 tablet = 81 mg, By Mouth, Daily, # 30 tablet, 0 Refills, Maintenance, 03/11/17 15:49:45, Tablet Start Date: 03/11/17 Status: Ordered doxazosin 4 mg oral tablet 1 tablet, By Mouth, Daily, # 90 tablet, 0 Refills, 11/18/21 14:39:00 EDT, [facility]/pharmacy #[id number], 176.4, cm, 08/15/21 9:23:00 EST, Height Start Date: 11/18/21 Status: Ordered gabapentin 100 mg oral capsule 1, capsule, By Mouth, Daily at bedtime, # 30 capsule, Refills 2, Route to Pharmacy Electronically, [facility], 176.4, cm, 08/15/21 9:23:00 EST, Height Start Date: 11/03/21 Status: Ordered gabapentin 100 mg oral capsule 200 mg, 2, capsule, By Mouth, Daily at bedtime, # 60 capsule, Refills 2, Tot. Refills 2, Maintenance, 11/06/21 16:34:00 EDT, Route to Pharmacy Electronically, [facility]/pharmacy #[id number], Partial fill upon patient request if the prescription is for a schedule... Start Date: 11/06/21 Status: Ordered irbesartan 150 mg oral tablet 1 tablet, By Mouth, Daily, # 90 tablet, 1 Refills, [facility] 647[facility], 176.4, cm, 04/07/21 7:14:00 EDT, Height Start Date: 06/18/21 Status: Ordered Tadalafil (Eqv-Cialis) 20 mg oral tablet 1 tablet, By Mouth, Daily, PRN NEEDED FOR ERECTILE DYSFUNCTION, # 5 tablet, 2 Refills, [id number], 176.4, cm, 08/15/21 9:23:00 EST, Height Start Date: 12/01/21 Status: Ordered Problem List Condition Effective Dates Status Health Status Inform ant Benign essential hypertension(Confirmed) Active Sleep related hypoventilation/hypoxemia in other disease(Confirmed) Active Diverticulosis(Confirmed) 1 Active Hemorrhoids(Confirmed) Active Bilateral knee pain(Confirmed) Active Migraine(Confirmed) Active Obesity(Confirmed) Active JR (obstructive sleep apnea)(Confirmed) Active Severe obesity(Confirmed) Active 1PER 03/02/14 COLONOSCOPY-DR ANABELLA CONCEPCION Social History Social History Type Response Smoking Status Never smoker entered on: 03/11/17 Sex
--- OUTSIDE RECORDS SUMMARY | 2024-05-03 22:13 | XMS_ITS | Continuity of Care Document ---
Author Organization [facility] Address [address] [place] [address]- Care Team Providers Care Direct Support Staff Name Role Phone Cortez Blunt MD Primary Care Physician [place] [facility] [place]19[place]22 - 06/26/22 [facility] Adult [address] [place] [address]- Attending Physician: Cortez Blunt MD Allergies, Adverse Reactions, Alerts Substance Reaction Severity Status lisinopril Active penicillins Rash Active Immunizations Given and Recorded Vaccine Date Status Refusal Reason tetanus/diphtheria/pertussis, acel(Tdap) 1 12/20/17 Given Not Given Vaccine Date Status Refusal Reason Influenza Virus Vaccine (oldterm) 06/21/19 Not Giv en Patient Refuses 1Result Comment: [12/20/2017] [facility] 57956-740-36 Medications amLODIPine 10 mg oral tablet 1 tablet, By Mouth, Daily, # 90 tablet, 1 Refills, Maintenance, 04/12/22 10:29:00 EDT, [facility] 16159, 176.4, cm, 02/02/22 11:18:00 EDT, Height Start [...] 06/19/22 10:16:00 EST, Route to Pharmacy Electronically, [facility]/pharmacy #[id number], Partial fill upon patient request if the prescription is for a schedule II... Start Date: 06/19/22 Status: Ordered doxazosin 4 mg oral tablet 1 tablet, By Mouth, Daily, # 90 tablet, 1 Refills, [facility], 176.4, cm, 08/15/21 9:23:00 EST, Height Start Date: 01/17/22 Status: Ordered Eliquis 5 mg oral tablet 1 tablet = 5 mg, By Mouth, 2 times a day, Stop ASA, # 60 tablet, 5 Refills, Maintenance, 06/19/22 10:17:00 EST, Tablet, [facility], Partial fill upon patient request if the prescription is for a schedule II opioid drug., 176.4, cm, 06/19/22 9:... Start Date: 06/19/22 Status: Ordered gabapentin 100 mg oral capsule 2, capsule, By Mouth, Daily at bedtime, # 60 capsule, Refills 2, Maintenance, 06/18/22 11:52:00 EST, Route to Pharmacy Electronically, [facility] 13030, 176.4, cm, 05/15/22 11:35:00 EDT, Height Start Date: 06/18/22 Status: Ordered omeprazole 20 mg oral enteric coated capsule 1 capsule = 20 mg, By Mouth, Daily, (buys OTC), Maintenance, 06/22/22 16:42:00 EST, EC Capsule, ; Start Date: 06/22/22 Status: Ordered Tadalafil (Eqv-Cialis) 20 mg oral tablet 1 tablet, By Mouth, Daily, PRN NEEDED FOR ERECTILE DYSFUNCTION, # 5 tablet, 2 Refills, Maintenance, 04/12/22 10:29:00 EDT, [facility] 64649, 176.4, cm, 02/02/22 11:18:00 EDT, Height Start [...] oldest [Reference Range]: 1 Height 176.4 cm (06/19/22 9:26 AM) Weight 150 kg (06/19/22 9:26 AM) Oxygen Saturation [94-100 %] 98 % (06/19/22 9:26 AM) Pulse Rate [55-90 bpm] 63 bpm (06/19/22 9:26 AM) Body Mass Index [18.5-24.99 kg/m2] 48.21 kg/m2 *>HHI* (06/19/22 9:26 AM) Blood Pressure [90-138/55-84 mm Hg] 112/ 71mm Hg (06/19/22 9:26 AM) Temperature [96.8-100.4 DegF] 98.1 DegF (06/19/22 9: AM) Mode of Delivery (Oxygen) Room air (06/19/22 9:26 AM) Blood pressure sites Arm, left (06/19/22 9:26 AM) Temperature Route Oral (06/19/22 9: AM) Weight Obtained Via Standing scale (06/19/22 9:26 AM) Social History Social History Type Response Smoking Status Never smoker entered on: 03/11/17 Sex Male EKG study * Event Display: ECG 12-Lead Authored Date: Please click on pdf link to open report * Event Display: ECG 12-Lead Authored Date: Ventricular Rate: 121 BPM Atrial Rate: 136 BPM QRS Duration: 90 ms Q-T Interval: 322 ms QTC Calculation(Bazett): 457 ms R Parks: 11 degrees T Parks: 70 degrees Atrial fibrillation with rapid ventricular response Nonspecific T wave abnormality Abnormal ECG When compared with ECG of 26-JUN-2020 07:22, Atrial fibrillation has replaced Sinus rhythm Vent. rate has increased BY 42 BPM Confirmed by NINO GLORIA MD ([id number]) on 06/23/2022 5:14:29 PM Campbell: NINO GLORIA MD Note * Kailey Muñoz: PERFORM, SIGN, VERIFY Event Display: Patient Education/Instruction Authored Date: [facility] *BMP So [place] Zambrano Clinical Summary Name LEIDY NGUYEN Age 61 Years 1960 PCP [facility] Blunt [id number] Visit Date 06/19/2022 09:24:00 Additional Instructions: Scheduled Appointments?? Future Appointments ?*BMP??So??[place] [address],??[address] ?Phone:??--?Fax:??-- ?Appt. Date:??06/25/2022?1:05 PM ?Scheduled Provider:??Cortez Blunt MD ?*BMP??So[facility] ?[address],??[address] ?Phone:??--?Fax:??-- ?Appt. Date:??08/06/2022?9:05 AM ?Scheduled Provider:??Cortez Blunt MD Follow-Up Instructions ?? Diagnosis Unspecified atrial fibrillation Medications: Please continue your medications until treatment is completed or stopped by your provider. Discuss any questions related to medications with your provider. Medications to Continue with No Changes These medications were not printed or sent to your pharmacy Amlodipine (amLODIPine 10 mg oral tablet) 1 tab(s) Oral Daily. Refills: 1. Next Dose: Aspirin (aspirin 81 mg oral tablet) 1 tab(s) Oral Daily. Next Dose: Doxazosin (doxazosin 4 mg oral tablet) 1 tab(s) Oral Daily. Refills: 1. Next Dose: Gabapentin (gabapentin 100 mg oral capsule) 2 capsule Oral Daily at Bedtime. Refills: 2. Next Dose: tadalafil (Tadalafil (Eqv-Cialis) 20 mg oral tablet) 1 tab(s) Oral Daily as needed NEEDED FOR ERECTILE DYSFUNCTION. Refills: 2. Next Dose: Allergy Info:?? penicillins; lisinopril Medications Given This Visit Future Orders ?Comprehensive Metabolic Panel? Order Date:06/19/22?- Complete on or after?06/19/22 ?CBC w/ Differential? Order Date:06/19/22?- Complete on or after?06/19/22 ?TSH with T4 Reflex (Adults Only)? Order Date:06/19/22?- Complete on or after?06/19/22 ?CPK w/ Reflex CKMB? Order Date:06/19/22?- Complete on or after?06/19/22 ?Troponin T Quant? Order Date:06/19/22?- Complete on or after?06/19/22 ?Comprehensive Metabolic Panel? Order Date:06/19/22?- Complete on or after?06/19/22 Vital Signs Height 176.4 cm Weight 150 kg BMI 48.21 kg/m2 Blood Pressure 112 mm Hg/71 mm Hg Temperature 98.1 DegF Pulse Rate 63 bpm Respiratory Rate 02 Sat Mode of Delivery 98 %/Room air You can now view a summary of your hospital visit from the [place] of your home through a free online portal called [employer]. [employer] is a website that allows you to securely view your medical information including discharge summary, medications and follow-up visits. ??You can alsosend a secure electronic message to your doctor???s office to request appointments, renew medications or just ask a question. You can enroll at [email or web address] or register during your next office visit. [...] primary care provider, you may find a [facility] provider by calling [facility] at [phone]. For information about the plan of care [...] Team Personnel Name: Brittani Anguiano RN Position: S RN Member Role: Primary Care Nurse Name: Cortez Blunt MD Position: [facility] Primary Care Physician Member Role: PCP Address: Address: [address] [place] [address]- [place] Name: Edna Kelly RN Position: S RN Member Role: Primary Care Nurse Name: Ron Babb RN Position: S RN Member Role: Primary Care Nurse Care Team Related Persons Name: CECY NGUYEN Address: home [address] [place] [address]
--- OUTSIDE RECORDS SUMMARY | 2024-05-03 22:13 | XMS_ITS | Continuity of Care Document ---
Author Organization [facility] Address [address] [place] [address]- Care Team Providers Care Benefits Advisor Name Role Phone Cortez Blunt MD Primary Care Physician Encounter [facility] [place] Date(s): 10/19/19 - 10/26/19 [facility] Adult [address] [place] [address]- [facility] Attending Physician: Cortez Blunt MD Allergies, Adverse Reactions, Alerts Substance Reaction Severity Status penicillins Rash Active Immunizations Given and Recorded Vaccine Date Status Refusal Reason tetanus/diphtheria/pertussis, acel(Tdap) 1 12/20/17 Given Not Given Vaccine Date Status Refusal Reason Influenza Virus Vaccine (oldterm) 06/21/19 Not Giv en Patient Refuses 1Result Comment: [12/20/2017] [facility] 82387-447-35 Medications amLODIPine 10 mg oral tablet 10 mg, 1, tablet, By Mouth, Daily, # 30 tablet, Refills 3, Tot. Refills 3, Soft Stop, 10/26/19 8:30:00 EDT, Route to Pharmacy Electronically, [facility]/pharmacy #[id number], 176.4, cm, 10/19/19 6:57:00 EDT, Height Start Date: 10/26/19 Status: Ordered aspirin 81 mg oral tablet 1 tablet = 81 mg, By Mouth, Daily, # 30 tablet, 0 Refills, Maintenance, 03/11/17 15:49:45, Tablet Start Date: 03/11/17 Status: Ordered doxazosin 4 mg oral tablet 1 tablet, By Mouth, Daily, # 30 tablet, 5 Refills, Maintenance, 08/23/19 16:11:00 EST, [facility], 176.4, cm, 06/21/19 15:38:00 EST, Height Start Date: 08/23/19 Status: Ordered irbesartan 150 mg oral tablet 1 tablet, By Mouth, Daily, # 30 tablet, 5 Refills, Maintenance, 08/23/19 16:11:00 EST, [facility], 176.4, cm, 06/21/19 15:38:00 EST, Height Start [...] oldest [Reference Range]: 1 Height 176.4 cm (10/19/19 6:57 AM) Weight 151.0 kg (10/19/19 6:57 AM) Oxygen Saturation [94-100 %] 96 % (10/19/19 6:57 AM) Pulse Rate [55-90 bpm] 81 bpm (10/19/19 6:57 AM) Body Mass Index [18.5-24.99] 48.53 *>HHI* (10/19/19 6:57 AM) Blood Pressure [90-138/55-84 mm Hg] 130/ 88mm Hg (10/19/19 6:57 AM) Temperature [96.8-100.4 DegF] 98.2 DegF (10/19/19 6:57 AM) Mode of Delivery (Oxygen) Room air (10/19/19 6:57 AM) Blood pressure sites Arm, left (10/19/19 6:57 AM) Temperature Route Oral (10/19/19 6:57 AM) Weight Obtained Via Standing scale (10/19/19 6:57 AM) Social History Social History Type Response Smoking Status Never smoker entered on: 03/11/17 Sex
--- OUTSIDE RECORDS SUMMARY | 2024-05-03 22:13 | XMS_ITS | Continuity of Care Document ---
Author Organization [facility] Address [address] [place], [place] [address]dena amin, [address] [place] [address]- Care Team Providers Care Pie Maker Machine Name Role Phone Merlene BYRNE, Cortez Kendall Primary Care Physician [phone] Encounter [facility] [place] Date(s): 08/05/23 - 09/04/[address], [address] [place], [place] [address] Allergies, Adverse Reactions, Alerts Substance Reaction Severity Status lisinopril cough Active penicillins Rash Active Immunizations Given and Recorded Vaccine Date Status Refusal Reason tetanus/diphtheria/pertussis, acel(Tdap) 1 12/20/17 Given 1Result Comment: [12/20/2017] [facility] 14997-431-32 Medications Acetaminophen Daily, 0 Refills, Maintenance, 09/10/22 [...] tablet, 3 Refills, Maintenance, 07/13/23 5:16:00 EST, [facility] STORE 51075, 176.1, cm, 06/25/23 8:54:00 EST, Height, 146.1, kg, 08/29/22 15:57:00 EST, Dry Weight Start Date: 07/13/23 Status: Ordered Eliquis 5 mg oral tablet 1 tablet, By Mouth, 2 times a day, *STOP ASPIRIN*., # 60 tablet, 11 Refills, Maintenance, 12/05/23 5:16:00 EST, [facility] ST[facility] 95591, 176.1, cm, 06/25/23 8:54:00 EST, Height, 146.1, kg, 08/29/22 15:57:00 EST, Dry Weight Start Date: 07/13/23 Status: Ordered Farxiga 10 mg oral tablet 1 tablet = 10 mg, By Mouth, Daily, # 90 tablet, 4 Refills, Maintenance, 06/25/23 9:09:00 EST, Tablet, [facility]/pharmacy #[id number], Partial fill upon patient request if the prescription is for a schedule II opioid drug., 176.1, cm, 06/25/23 8:54:00 EST, Height,... Start Date: 06/25/23 Stop Date: 09/17/24 Status: Ordered gabapentin 100 mg oral capsule 2, capsule, By Mouth, Daily at bedtime, # 180 capsule, Refills 1, Tot. Refills 1, Maintenance, 05/10/23 13:26:00 EDT, Route to Pharmacy Electronically, [facility]/pharmacy #[id number], 176.1, cm, 05/10/23 13:05:00 EDT, Height, 146.1, kg, 08/29/22 15:57:00 EST, Dry... Start Date: 05/10/23 Status: Ordered LORazepam 2 mg oral tablet 1 tablet = 2 mg, By Mouth, Once, one hour prior to procedure, # 1 tablet, 0 Refills, Soft Stop, 07/22/23 6:37:00 EST, Tablet, [facility]/pharmacy #2071, Partial fill upon patient request if the prescriptionis for a schedule II opioid drug., 176.1, cm, 06/25... Start Date: 07/22/23 Status: Ordered Metoprolol Succinate ER 100 mg oral tablet, extended release 1 tablet, By Mouth, Daily, # 90 tablet, 3 Refills, Maintenance, 07/09/23 13:03:00 EST, [facility] 05929, 176.1, cm, 06/25/23 8:54:00 EST, Height, 146.1, [...] 06/14/23 8:05:00 EST, Route to Pharmacy Electronically, [facility] STORE 75745, 176.1, cm, 05/13/23 9:04:00 EDT, Height, 146.1, kg, 08/29/22 15:57:00 EST, Dry Weight Start Date: 06/14/23 Status: Ordered Tadalafil (Eqv-Cialis) 20 mg oral tablet 1 tablet, By Mouth, Daily, PRN NEEDED FOR ERECTILE DYSFUNCTION, # 5 tablet, 2 Refills, Maintenance, 06/13/23 18:58:00 EST, [facility] STORE 88524, 176.1, cm, 05/13/23 9:04:00 EDT, Height, 146.1, [...] 3 Refills, Maintenance, 12/17/22 6:36:00 EDT, Tablet, [facility]/pharmacy #2071, Partial fill upon patient request if the prescription is for a schedule II opioid drug., 176.1, cm, 10/21/22 11:09:00 ED... Start Date: 12/17/22 Stop Date: 12/12/23 Status: Ordered valsartan 160 mg oral tablet 160 mg, 1, tablet, By Mouth, 2 times a day, # 180 tablet, Refills 4, Tot. Refills 4, Maintenance, 07/09/23 13:10:00 EST, Route to Pharmacy Electronically, [facility]/pharmacy #3211, Partial fill upon patient request if the [...] Care Team Personnel Name: Alanis Harris Position: [facility] RN Supv Member Role: Primary Care Nurse Name: Brittani Anguiano RN Position: [facility] RN Member Role: Primary Care Nurse Name: Cortez Blunt MD Position: [facility] Physician - Primary Care Member Role: PCP Address: Address: [address] [place] [address]- Name: Ron Babb RN Position: [facility] RN Member Role: Primary Care Nurse Care Team Related Persons Name: CECY NGUYEN Address: home [address] [place] [address] Name: LEIDY NGUYEN JR Address: [address] [place] [address]
--- OUTSIDE RECORDS SUMMARY | 2024-05-03 22:13 | XMS_ITS | Continuity of Care Document ---
Author Organization [facility] Address [address] [place] [address]- Care Team Providers Care [place] Police Lieutenant Name Role Phone Merlene BYRNE, Cortez Kendall Primary Care Physician [place] [facility] [place]s): 08/06/22 - 09/27/22 [facility] [address] [place] [address]- Attending Physician: Bonifacio MYERS, Kassandra Admitting Physician: Bonifacio [employer] TE[employer]ER, Kassandra Allergies, Adverse Reactions, Alerts Substance Reaction Severity Status lisinopril Active penicillins Rash Active Immunizations Given and Recorded Vaccine Date Status Refusal Reason tetanus/diphtheria/pertussis, acel(Tdap) 1 12/20/17 Given Not Given Vaccine Date Status Refusal Reason Influenza Virus Vaccine (oldterm) 06/21/19 Not Giv en Patient Refuses 1Result Comment: [12/20/2017] [facility] 61138-018-77 Medications Acetaminophen Daily, 0 Refills, Maintenance, 09/10/22 8:02:00 EST, Partial fill upon patient request if the prescription is for a schedule II opioid drug. Start Date: 09/10/22 Status: Ordered amiodarone 200 mg oral tablet 200 mg, 1, tablet, By Mouth, Daily, # 30 tablet, Refills 0, Tot. Refills 0, Maintenance, 09/05/22 9:34:00 EST, Route to Pharmacy Electronically, [facility], Partial fill upon patient [...] 0 Refills, Maintenance, 09/05/22 9:49:00 EST, Tablet, [facility], Partial fill upon patient request if the prescription is for a scheduleII opioid drug., 177.8, cm, 09/05/22 8:50:00 EST, H... Start Date: 09/05/22 Status: Ordered doxazosin 4 mg oral tablet 1 tablet, By Mouth, Daily, # 90 tablet, 1 Refills, Maintenance, 07/05/22 16:17:00 EST, [facility]/pharmacy#2071, 178, cm, 07/01/22 7:55:00 EST, Height Start Date: 07/05/22 Status: Ordered Eliquis 5 mg oral tablet 1 tablet = 5 mg, By Mouth, 2 times a day, # 60 tablet, 5 Refills, Maintenance, 07/01/22 9:02:00 EST, Tablet[id number] Partial fill upon patient request if the prescription is for a schedule II opioid drug., 178, cm, 07/01/22 7:55:00 EST, He... Start Date: 07/01/22 Status: Ordered gabapentin 100 mg oral capsule 2, capsule, By Mouth, Daily at bedtime, # 60 capsule, Refills 2, Maintenance, 06/18/22 11:52:00 EST, Route to Pharmacy Electronically, [facility] ST[facility] 93324, 176.4, cm, 05/15/22 11:35:00 EDT, Height Start Date: 06/18/22 Status: Ordered metoprolol succinate 100 mg oral capsule, extended release 1 capsule = 100 mg, By Mouth, Daily, # 30 capsule, 0 Refills, Maintenance, 09/05/22 9:33:00 EST, ERCapsule, [facility], Partial fill upon patient [...] 09/05/22 9:32:00 EST, Route to Pharmacy Electronically, [facility], Partial fill upon patient request if the prescription is for a schedule II opioid... Start Date: 09/05/22 Status: Ordered Tadalafil (Eqv-Cialis) 20 mg oral tablet 1 tablet, By Mouth, Daily, PRN NEEDED FOR ERECTILE DYSFUNCTION, # 5 tablet, 2 Refills, Maintenance, 08/11/22 9:25:00 EST, [facility] 84488, 178, cm, 08/07/22 15:14:00 EST, Height, 147, kg, 08/04/2217:07:00 EST, Dry Weight Start Date: 08/11/22 Status: Ordered torsemide 20 mg oral tablet 1 tablet = 20 mg, By Mouth, 2 times a day, # 60 tablet, 0 Refills, Maintenance, 09/05/22 9:32:00 EST, Tablet, [facility], Partial fill upon patient request if the prescription is for a schedule II opioid drug., 177.8, cm, 09/05/22 8:50:0... Start Date: 09/05/22 Status: Ordered valsartan 40 mg oral tablet 80 mg, 2, tablet, By Mouth, 2 times a day, # 120 tablet, Refills 0, Tot. Refills 0, Maintenance, 09/05/22 9:33:00 EST, Route to Pharmacy Electronically, [facility], Partial fill upon patient [...] Team Personnel Name: Lázaro Garcia RN Position: [facility] RN Member Role: Primary Care Nurse Name: Alanis Harris Position: [facility] RN Supv Member Role: Primary Care Nurse Name: Brittani Anguiano RN Position: [facility] RN Member Role: Primary Care Nurse Name: Cortez Blunt MD Position: [facility] Primary Care Physician Member Role: PCP Address: Address: [address] [place] [address] Name: Edna Kelly RN Position: [facility] RN Member Role: Primary Care Nurse Name: Ron Babb RN Position: [facility] RN Member Role: Primary Care Nurse Care Team Related Persons Name: CECY NGUYEN Address: [address] [place] [address] Name: LEIDY NGUYEN JR Address: [address] [place] [address]
--- OUTSIDE RECORDS SUMMARY | 2024-05-03 22:13 | XMS_ITS | Continuity of Care Document ---
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 [id number] Medications Acetaminophen Daily, 0 Refills, Maintenance, 09/10/22 [...] days, # 20 tablet, 0 Refills, Acute 05/06/23 13:27:00 EDT, 04/26/23 13:27:00 EDT, Tablet, [facility]/pharmacy #[id number], Partial fill upon patient request if the prescription is for a schedule II opioid drug., 1 tablet B... Start Date: 04/26/23 Stop Date: 05/06/23 Status: Ordered doxazosin 4 mg oral tablet 1 tablet, By Mouth, Daily, # 90 tablet, 1 Refills, Maintenance, 12/17/22 11:10:00 EDT, [id number], 176.1, cm, 10/21/22 11:09:00 EDT, Height, 146.1, kg, 08/29/22 15:57:00 EST, Dry Weight Start Date: 12/17/22 Status: Ordered Eliquis 5 mg oral tablet 1 tablet = 5 mg, By Mouth, 2 times a day, # 60 tablet, 5 Refills, Maintenance, 07/01/22 9:02:00 EST, Tablet, [facility]/pharmacy #[id number], Partial fill upon patient request if the prescription is for a schedule II opioid drug., 178, cm, 07/01/22 7:55:00 EST, He... Start Date: 07/01/22 Status: Ordered gabapentin 100 mg oral capsule 2, capsule, By Mouth, Daily at bedtime, # 60 capsule, Refills 2, Maintenance, 02/05/23 11:56:00 EDT, Route to Pharmacy Electronically, [id number], 176.1, cm, 12/21/22 16:31:00 EDT, Height, 146.1, kg, 08/29/22 15:57:00 EST, Dry Weight Start Date: 02/05/23 Status: Ordered Metoprolol Succinate ER 100 mg oral tablet, extended release See Instructions, TAKE 1 TABLET BY MOUTH EVERY DAY, # 90 tablet, 1 Refills, Maintenance, 11/09/22 9:12:00 EDT, [facility]/pharmacy #[id number], 176.1, cm, 10/21/22 11:09:00 [...] EDT, Route to Pharmacy Electronically, [facility], 176.1, cm, 12/21/22 16:31:00 EDT, Height, 146.1, kg, 08/29/2314:57:00 EST, Dry Weight Start Date: 02/05/23 Status: Ordered Tadalafil (Eqv-Cialis) 20 mg oral tablet 1 tablet, By Mouth, Daily, PRN NEEDED FOR ERECTILE DYSFUNCTION, # 5 tablet, 1 Refills, Maintenance, 01/25/23 20:35:00 EDT, [id number], 176.1, cm, 12/21/22 16:31:00 EDT, Height, 146.1, [...] 3 Refills, Maintenance, 12/17/22 6:36:00 EDT, Tablet, [facility]/pharmacy #[id number], Partial fill upon patient request if the prescription is for a schedule II opioid drug., 176.1, cm, 10/21/22 11:09:00 ED... Start Date: 12/17/22 Stop Date: 12/12/23 Status: Ordered valsartan 160 mg oral tablet 160 mg, 1, tablet, By Mouth, 2 times a day, # 180 tablet, Refills 4, Tot. Refills 4, Maintenance, 10/19/22 13:24:00 EDT, Route to Pharmacy Electronically, [facility]/pharmacy #[id number], Partial fill upon patient [...] oldest [Reference Range]: 1 Height 176.1 cm (04/26/23 12:52 PM) Weight 156.5 kg (04/26/23 12:52 PM) Oxygen Saturation [94-100 %] 97 % (04/26/23 12:52 PM) Pulse Rate [55-90 bpm] 62 bpm (04/26/23 12:52 PM) Body Mass Index [18.5-24.99 kg/m2] 50.47 kg/m2 *>HHI* (04/26/23 12:52 PM) Blood Pressure [90-138/55-84 mm Hg] 118/ 71mm Hg (04/26/23 12:52 PM) Mode of Delivery (Oxygen) Room air (04/26/23 12:52 PM) Blood pressure sites Arm, left (04/26/23 12:52 PM) Weight Obtained Via Standing scale (04/26/23 12:52 PM) Social History Social History Type Response Smoking Status Never smoker entered on: 03/11/17 Sex Note * Marj Cazares: PERFORM, SIGN, VERIFY Event Display: Patient Education/Instruction Authored Date: [id number] [facility] *BMP So [place] Zambrano Clinical Summary Name LEIDY NGUYEN Age 62 Years 1960 PCP Merlene BYRNE, Cortez Kendall PCP Visit Date 04/26/2023 12:44:00 Additional Instructions: Scheduled Appointments?? Future Appointments ?*BMP??[facility] ?[address] ?Phone:??--?Fax:??-- ?Appt. Date:??05/10/2023?1:05 PM ?Scheduled Provider:??Merlene BYRNE, Cortez Kendall ?*[facility] ?[address] ?[place],??[place],??[address] ?Phone:??--?Fax:??-- ?Appt. Date:??06/08/2023?9:30 AM ?Scheduled Provider:??Nichole BYRNE, Antoine Grijalva Follow-Up Instructions ?? Diagnosis Obstructive sleep apnea (adult) (pediatric); Essential (primary) hypertension; Paresthesia of skin;Unspecified atrial fibrillation; Cellulitis, unspecified Medications: Please continue your medications until treatment is completed or stopped by your provider. Discuss any questions related to medications with your provider. New Medications [facility]/pharmacy #[id number], [address], [place] [id number], [phone] Sulfamethoxazole/Trimethoprim (Bactrim DS 800 mg-160 mg oral tablet) 1 tab(s) Oral twice a day for 10 Days. Refills: 0. Next Dose: Medications to Continue with No Changes These medications were not printed or sent to your pharmacy Acetaminophen Daily. Next Dose: apixaban (Eliquis 5 mg oral tablet) 1 tab(s) Oral twice a day. Refills: 5. Next Dose: Aspirin (aspirin 81 mg oral tablet) 1 tab(s) Oral Daily. Next Dose: Doxazosin (doxazosin 4 mg oral tablet) 1 tab(s) Oral Daily. Refills: 1. Next Dose: Gabapentin (gabapentin 100 mg oral capsule) 2 capsule Oral Daily at Bedtime. Refills: 2. Next Dose: Metoprolol (Metoprolol Succinate ER 100 mg oral tablet, extended release) TAKE 1 TABLET BY MOUTH EVERY DAY. Refills: 1. Next Dose: Miscellaneous Rx (TADALAFIL 20 MG TABLET) 1 tab(s) Oral Daily as needed NEEDED FOR ERECTILE DYSFUNCTION. Refills: 1. Next Dose: Omeprazole (omeprazole 20 mg oral enteric coated capsule) 1 capsule Oral Daily. (buys OTC). Next Dose: Spironolactone (spironolactone 25 mg oral tablet) 1 tab(s) Oral Daily. Refills: 0. Next Dose: tadalafil (Tadalafil (Eqv-Cialis) 20 mg oral tablet) 1 tab(s) Oral Daily as needed NEEDED FOR ERECTILE DYSFUNCTION. Refills: 1. Next Dose: torsemide (torsemide 20 mg oral tablet) 1 tab(s) Oral twice a day for 90 Days. Refills: 3. Next Dose: Valsartan (valsartan 160 mg oral tablet) 1 tab(s) Oral twice a day for 90 Days. Refills: 4. Next Dose: No Longer Take the Following Medications Amlodipine (amLODIPine 10 mg oral tablet) 1 tab(s) Oral Daily. Refills: 3. dapagliflozin (dapagliflozin 10 mg oral tablet) 1 tab(s) Oral Daily. Refills: 0. Allergy Info:?? penicillins; lisinopril Medications Given This Visit Future Orders ?Foot Min 3 Views Right? Order Date:04/26/23?- Complete on or after?04/26/23 ?TSH with T4 Reflex (Adults Only)? Order Date:04/26/23?- Complete on or after?04/26/23 ?Comprehensive Metabolic Panel? Order Date:04/26/23?- Complete on or after?04/26/23 ?Lyme Disease Ab Screen? Order Date:04/26/23?- Complete on or after?04/26/23 ?CBC w/ Differential? Order Date:04/26/23?- Complete on or after?04/26/23 ?Hemoglobin A1C (Monitoring)? Order Date:04/26/23?- Complete on or after?04/26/23 ?Sedimentation Rate? Order Date:04/26/23?- Complete on or after?04/26/23 ?C Reactive Protein? Order Date:04/26/23?- Complete on or after?04/26/23 Vital Signs Height 176.1 cm Weight 156.5 kg BMI 50.47 kg/m2 Blood Pressure 118 mm Hg/71 mm Hg Temperature Pulse Rate 62 bpm Respiratory Rate 02 Sat Mode of Delivery 97 %/Room air You can now view a summary of your hospital visit from the comfort of your home through a free online portal called [employer]. [employer] is a website that allows you to securely view your medical information including discharge summary, medications and follow-up visits. ??You can alsosend a secure electronic message to your doctor???s office to request appointments, renew medications or just ask a question. You can enroll at [email or web address] or register during your next [...] primary care provider, you may find a [facility] provider by calling [facility] Link at [phone]. [facility], in keeping with [facility] guidance, no longer requires face masks for staff, patientsor visitors in most situations. Similar to time spent indoors at other locations, there is the chance that you were exposed to respiratory viruses during your time with us (such as flu or COVID-19).? If you develop symptoms concerning for a viral respiratory infection, please seek testing (and treatment if indicated) from your medical provider or home test kit. For information about the plan of care [...] Care Team Personnel Name: Alanis Harris Position: [facility] RN Supv Member Role: Primary Care Nurse Name: Birttani Anguiano RN Position: [facility] SN RN Member Role: Primary Care Nurse Name: Cortez Blunt MD Position: [facility] Physician - Primary Care Member Role: PCP Address: Address: [address] [place] [id number]- Name: Ron Babb RN Position: [facility] RN Member Role: Primary Care Nurse Care Team Related Persons Name: CECY NGUYEN Address: [address] [place] [address] Name: LEIDY NGUYEN JR Address: [address] [place] [address]
--- OUTSIDE RECORDS SUMMARY | 2024-05-03 22:13 | XMS_ITS | Continuity of Care Document ---
Author Organization [facility] Address [address] [place] [address]- Care Team Providers Care Care Transition Mgr Name Role Phone Merlene BYRNE, Cortez Kendall Primary Care Physician [phone] Encounter [facility] Date(s): 04/16/21 - 06/23/[address] [address] Attending Physician: Kiya Dolan NP Admitting Physician: Kiya Dolan NP Referring Physician: Kiya Dolan NP Allergies, Adverse Reactions, Alerts Substance Reaction Severity Status lisinopril Active penicillins Rash Active Immunizations Given and Recorded Vaccine Date Status Refusal Reason tetanus/diphtheria/pertussis, acel(Tdap) 1 12/20/17 Given Not Given Vaccine Date Status Refusal Reason Influenza Virus Vaccine (oldterm) 06/21/19 Not Giv en Patient Refuses 1Result Comment: [12/20/2017] [facility] [id number] Medications amLODIPine 10 mg oral tablet 1 tablet, By Mouth, Daily, # 30 tablet, 5 Refills, Maintenance, 01/29/21 8:22:00 EDT, [id number], 176.4, cm, 12/25/20 7:05:00 EDT, Height Start [...] 0 Refills, Soft Stop, 04/07/21 8:04:00 EDT, [facility]/pharmacy #[id number], Partial fill upon patient request if the prescription is for aschedule II opioid drug., 176.4, cm, 04/07/21 7:14:... Start Date: 04/07/21 Status: Ordered Cialis 20 mg oral tablet 1 tablet = 20 mg, By Mouth, Daily, PRN as needed for erectile dysfunction, # 5 tablet, 5 Refills, Maintenance, 12/25/20 8:45:00 EDT, Tablet, [facility]/pharmacy #[id number], Partial fill upon patient request if the prescription is for a schedule II opioid drug., 1... Start Date: 12/25/20 Status: Ordered doxazosin 4 mg oral tablet 1 tablet, By Mouth, Daily, # 90 tablet, 0 Refills, [facility], 176.4, cm, 04/07/21 7:14:00 EDT, Height Start Date: 06/17/21 Status: Ordered gabapentin 100 mg oral capsule 1, capsule, By Mouth, Daily at bedtime, # 30 capsule, Refills 2, Tot. Refills 0, Maintenance, 02/27/21 17:42:00 EDT, Route to Pharmacy Electronically, [id number], 176.4, cm, 12/25/20 7:05:00 EDT, Height Start Date: 02/27/21 Status: Ordered irbesartan 150 mg oral tablet 1 tablet, By Mouth, Daily, # 90 tablet, 1 Refills, [facility], 176.4, cm, 04/07/21 7:14:00 EDT, Height Start Date: 06/18/21 Status: Ordered Problem List Condition Effective Dates [...]
--- OUTSIDE RECORDS SUMMARY | 2024-05-03 22:13 | XMS_ITS | Continuity of Care Document ---
Author Organization [facility] ter Address [address] [place] [id number]- Care Team Providers Care Casino Assistant Manager Name Role Phone Merlene BYRNE, Cortez Kendall Primary Care Physician [phone] Encounter [facility] – [place] ACCT R [id number] Date(s): 08/28/22 - 09/05/[address] [id number] Encounter Diagnosis Heart failure with preserved ejection fraction(Discharge Diagnosis) - 09/01/22 Nonischemic cardiomyopathy(Discharge Diagnosis) - 09/01/22 Hypertension(Discharge Diagnosis) - 09/01/22 JR (obstructive sleep apnea)(Discharge Diagnosis) - 09/01/22 Severe obesity(Discharge Diagnosis) - 09/01/22 Discharge Disposition: A-D/C Home Attending Physician: Juan C Costello MD Admitting Physician: Jackie Rodriguez MD Referring Physician: Not on Staff, Referring MD Allergies, Adverse Reactions, Alerts Substance Reaction Severity Status lisinopril Active penicillins Rash Active Immunizations Given and Recorded Vaccine Date Status Refusal Reason tetanus/diphtheria/pertussis, acel(Tdap) 1 12/20/17 Given Not Given Vaccine Date Status Refusal Reason Influenza Virus Vaccine (oldterm) 06/21/19 Not Giv en Patient Refuses 1Result Comment: [12/20/2017] [facility] [id number] Medications amiodarone 200 mg oral tablet 200 mg, 1, tablet, By Mouth, Daily, # 30 tablet, Refills 0, Tot. Refills 0, Maintenance, 09/05/22 9:34:00 EST, Route to Pharmacy Electronically, [facility], Partial fill upon [...] 0 Refills, Maintenance, 09/05/22 9:49:00 EST, Tablet, [facility], Partial fill upon patient request if the prescription is for a scheduleII opioid drug., 177.8, cm, 09/05/22 8:50:00 EST, H... Start Date: 09/05/22 Status: Ordered doxazosin 4 mg oral tablet 1 tablet, By Mouth, Daily, # 90 tablet, 1 Refills, Maintenance, 07/05/22 16:17:00 EST, [facility]/pharmacy#[id number], 178, cm, 07/01/22 7:55:00 EST, Height Start Date: 07/05/22 Status: Ordered Eliquis 5 mg oral tablet 1 tablet = 5 mg, By Mouth, 2 times a day, # 60 tablet, 5 Refills, Maintenance, 07/01/22 9:02:00 EST, Tablet, [facility]/pharmacy #[id number], Partial fill upon patient request if the prescription is for a schedule II opioid drug., 178, cm, 07/01/22 7:55:00 EST, He... Start Date: 07/01/22 Status: Ordered gabapentin 100 mg oral capsule 2, capsule, By Mouth, Daily at bedtime, # 60 capsule, Refills 2, Maintenance, 06/18/22 11:52:00 EST, Route to Pharmacy Electronically, [id number], 176.4, cm, 05/15/22 11:35:00 EDT, Height Start Date: 06/18/22 Status: Ordered gabapentin 100 mg oral capsule 200 mg, Capsule, By Mouth, 09/04/22 21:00:00 EST Start Date: 09/04/22 Stop Date: 09/04/22 Status: Completed metoprolol succinate 100 mg oral capsule, extended release 1 capsule = 100 mg, By Mouth, Daily, # 30 capsule, 0 Refills, Maintenance, 09/05/22 9:33:00 EST, ERCapsule, [facility] 3, Partial fill upon patient request [...] 09/05/22 9:32:00 EST, Route to Pharmacy Electronically, [facility] 3, Partial fill upon patient request if the prescription is for a schedule II opioid... Start Date: 09/05/22 Status: Ordered Tadalafil (Eqv-Cialis) 20 mg oral tablet 1 tablet, By Mouth, Daily, PRN NEEDED FOR ERECTILE DYSFUNCTION, # 5 tablet, 2 Refills, Maintenance, 08/11/22 9:25:00 EST, [id number], 178, cm, 08/07/22 15:14:00 EST, Height, 147, kg, 08/04/2217:07:00 EST, Dry Weight Start Date: 08/11/22 Status: Ordered torsemide 20 mg oral tablet 1 tablet = 20 mg, By Mouth, 2 times a day, # 60 tablet, 0 Refills, Maintenance, 09/05/22 9:32:00 EST, Tablet, [facility] 3, Partial fill upon patient request if the prescription is for a schedule II opioid drug., 177.8, cm, 09/05/22 8:50:0... Start Date: 09/05/22 Status: Ordered valsartan 40 mg oral tablet 80 mg, Tablet, By Mouth, 09/04/22 21:00:00 EST Start Date: 09/04/22 Stop Date: 09/04/22 Status: Completed valsartan 40 mg oral tablet 80 mg, 2, tablet, By Mouth, 2 times a day, # 120 tablet, Refills 0, Tot. Refills 0, Maintenance, 09/05/22 9:33:00 EST, Route to Pharmacy Electronically, [facility], Partial fill upon [...] Effective Dates Health Status Clinical Service Informant Heart failure with preserved ejection fraction Discharge Diagnosis 09/01/22 Nonischemic cardiomyopathy Discharge Diagnosis 09/01/22 Hypertension Discharge Diagnosis 09/01/22 JR (obstructive sleep apnea) Discharge Diagnosis 09/01/22 Severe obesity Discharge Diagnosis 09/01/22 Results Radiology Reports * Exam Date Time Procedure Performing Provider Status 09/01/22 4:[address] Heart W/ Dye Function Darryl Goncalves; Auth (Verified) Notes: (CT Heart W/ Dye Function) Reason For Exam: Pulmonary vein mapping for AF ablation;Other: RESULT: CT Heart W/ Dye Function Exam: CT Heart W/ Dye Function History: Unspecified atrial flutter. Heart failure with preserved ejection fraction, hypertension, nonischemic cardiomyopathy. Pre-ablation evaluation, with 3-D cardiac CTA including pulmonary vein mapping required for upcoming electrophysiology procedure. Comparison: None. Technique: Pulmonary vein mapping protocol CTA. Automatic tube modulation based on attenuation fromAP and lateral topograms or weight-based algorithm was used to optimize exposure parameters. Bolus tracking used for timing. The patient received 100 cc Omnipaque 300 and 40 cc saline IV. A 51 Give [place] scanner with 16 cm wide detector was used. 3D MIP reconstructions of the distal pulmonary veins were performed on a separate workstation, as well as 3D volume rendering, with images saved to the PACS. Radiation Dose Parameters: CTDIvol Body: 30.96 mGy, DLP Body: 519 mGy*cm. FINDINGS: The left atrium is enlarged and measures approximately 6.5 cm AP x 8.6 cm RL x 6.8 cm SI. Left atrial appendage revealed no evidence for thrombus. Pulmonary vein configuration and measurements as follows: There are 2 standard right pulmonary veins and a left common trunk with 2 major branches. Right Superior: 34 mm x 25 mm diameter. Right Inferior: 21 mm x 20 mm diameter. Early, large superior branch Left Common Trunk: 32 mm x 23 mm diameter. Left Superior branch: 19 mm x 17 mm diameter. Left Inferior branch: 19 mm x 16 mm diameter. Early, large, posterior-superior branch and small inferior branch. Additional Findings: Heart size normal. Mild coronary artery calcifications. Pericardium unremarkable. Visualized portions of the thoracic aorta normal in caliber. The visualized portions of lungs were clear. Small bilateral pleural effusions. Upper abdominal images unremarkable. IMPRESSION: 1. Pulmonary veins evaluated and measured as above. 2. Small bilateral pleural effusions. WSN: [id number] Ordering Physician: Dilshad Vargas Dictated By: Prasanna Padilla MD Dictated Date/Time: 09/02/22 10:43 a Reviewed By: Prasanna Padilla MD Signed By: Prasanna Padilla MD Signed Date/Time: 09/02/22 10:43 am Transcribed By: SHAYY Transcribed Date/Time: 09/02/22 10:42 am * Exam Date Time Procedure Performing Provider Status 08/28/22 9:33 PM Chest 2 Views Frontal and Lat Hood , Usha; Rk (Verified) Notes: (Chest 2 Views Frontal and Lat) Reason For Exam: Cough RESULT: Chest 2 Views Frontal and Lat Chest 2 Views Frontal and Lat Hx of Present Illness: pt was recently cardioverted on wednesday for a.fib RVR at cards office, pt isnow back in a.fib, c o worsening SOB and lower extremity swelling. pt also c o abd pain and distention. Pt very SOB with exertion; Reason: Cough; Clinical Question(s): Pulmonary Edema COMPARISON: 08/04/2022 FINDINGS: LINES AND TUBES: None. LUNGS AND PLEURA: Central vascularity is prominent and indistinct with perihilar interstitial edema, unchanged. Small pleural effusions, unchanged. No pneumothorax. HEART, MEDIASTINUM AND SADIE: Mild prominence of the cardiac silhouette. Normal mediastinal and hilar contour. BONES AND SOFT TISSUES: No acute abnormality. IMPRESSION: Cardiac enlargement with pulmonary edema and small pleural effusions consistent with CHF. Similar findings are seen on the prior exam. WSN: [id number] Ordering Physician: Virginie Flower Dictated By: Prasanna Mohan MD Dictated Date/Time: 08/28/22 9:34 pm Reviewed By: Prasanna Mohan MD Signed By: Prasanna Mohan MD Signed Date/Time: 08/28/22 9:34 pm Transcribed By: SHAYY Transcribed Date/Time: 08/28/22 9:33 pm Vital Signs Most recent to oldest [Reference Range]: 1 2 3 Height 177.8 cm (09/05/22 8:50 AM) 177.8 cm (09/05/22 3:37 AM) 177.8 cm (09/04/22 8:51 PM) Weight 145.2 kg (09/05/22 3:37 AM) 146.1 kg (09/04/22 2:00 AM) 141.6 kg (09/03/22 2:45 AM) Oxygen Saturation [94-100 %] 98 % (09/05/22 8:50 AM) 99 % (09/05/22 3:37 AM) 97 % (09/04/22 8:51 PM) Pulse Rate [55-90 bpm] 55 bpm (09/05/22 8:50 AM) 61 bpm (09/05/22 3:37 AM) 72 bpm (09/04/22 8:51 PM) Body Mass Index [18.5-24.99 kg/m2] 45.93 kg/m2 *>HHI* (09/05/22 3:37 AM) 44.79 kg/m2 *>HHI* (09/03/22 2:45 AM) 44.79 kg/m2 *>HHI* (09/02/22 3:02 AM) Blood Pressure [90-138/55-84 mm Hg] 129/78mm Hg (09/05/22 8:50 AM) 126/71mm Hg (09/05/22 3:37 AM) 126/79mm Hg (09/04/22 9:51 PM) Respiratory Rate [16-30 br/min] 18 br/min (09/05/22 3:37 AM) 18 br/min (09/04/22 10:51 PM) 18 br/min (09/04/22 9:51 PM) Temperature [96.8-100.4 DegF] 97.5 DegF (09/05/22 8:50 AM) 97.5 DegF (09/05/22 3:37 AM) 97.9 DegF (09/04/22 8:51 PM) Liters per Minute 2 L/min (09/04/22 12:45 PM) 2 L/min (09/04/22 12:30 PM) 2 L/min (09/04/22 12:11 PM) Mode of Delivery (Oxygen) Room air (09/05/22 8:50 AM) CPAP (09/05/22 3:37 AM) Room air (09/04/22 8:51 PM) Blood pressure sites Arm, left (09/05/22 8:50 AM) Arm, right (09/05/22 3:37 AM) Arm, right (09/04/22 8:51 PM) Temperature Route Oral (09/05/22 8:50 AM) Oral (09/05/22 3:37 AM) Oral (09/04/22 8:51 PM) Dry Weight 146.1 kg (08/29/22 3:57 PM) Weight Obtained Via Bed scale (09/05/22 3:37 AM) Bed scale (09/03/22 2:45 AM) Bed scale (09/02/22 3:02 AM) Social History Social History Type Response Smoking Status Never smoker entered on: 03/11/17 Sex Admission evaluation note * Truong BYRNE, Wily: PERFORM Event Display: Admission Note Authored Date: [id number] Patient: ??LEIDY NGUYEN ? Age:??61 Years?Sex:??Male?:??1960?? Chief Complaint/Reason for Consultation Atrial fibrillation History of Present Illness Leidy is a 61-year-old male patient with past medical history of atrial fibrillation???on Eliquisand metoprolol with recent cardioversion on August 25, 2022, heart failure with preserved ejectionfraction, hypertension who presented to [facility] emergency room with complaints of shortness of breath which is reminiscent of his atrial fibrillation.?? Patient says that he does not have significant palpitations.?? 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 Appears comfortable at rest.?? Denies any fever or URI symptoms.?? Denies any abdominal symptoms.?? Denies any hematemesis, Dilma, hematochezia.?? Alert awake and oriented x4.?? Wants to full code ?? In the emergency room, noted to be afebrile, initial heart rate 115, most recently heart rate of100, most recent blood pressure 155/92, maintaining saturation of 96% on room air.?? On review of labs, noted to have white count of 6.7, hemoglobin 15.1, platelets 190, sodium 145, potassium 4.0, bicarb 30, creatinine 0.9, LFTs unremarkable, proBNP 1020, troponin 13x2, TSH 2.99, COVID- 19 PCR negative, chest x-ray shows pulmonary edema with small pleural effusions EKG obtained in the ER showed atrial fibrillation at rate of [address] changes based on my review. Review of Systems General ROS:??negative for chills or fever, noted fatigue, no night sweats, no unexpained weight loss or weight gain Psychological ROS:negative for anxiety or depressive symptoms, no suicidal thoughts, appropriate insight into situation, mood appears appropriate for situation ENT ROS:??negative for nasal congestion, no sinus drainage, no nosebleeding, no sore throat, no dysphagia, no ear pain Hematological and Lymphatic ROS:??negative for bleeding problems, no history of blood clots, no recent increase in bruising, no noted swollen lymph nodes Endocrine ROS:??negative for polyuria/polydipsia?? Respiratory ROS:??Positive for mild cough and shortness of breath, no wheezing Cardiovascular ROS:??Positive for mild vague??chest discomfort???resolved??positive for dyspnea on exertion, ??No edema, positive for mild??sensation??of??palpitations???resolved, no history of loss of consciousness, no orthopnea, no paroxysmal nocturnal dyspnea?? Gastrointestinal ROS:??negative for reflux, no abdominal pain, no black or bloody stools- also no history of constipation, diarrhea, heartburn or hematemesis Genito-Urinary ROS:??no dysuria, no trouble voiding, or hematuria Musculoskeletal ROS:??negative for worsening ongoing back pain, no worsening or chronic neck pain, no new or worsening joint pain, no calf swelling Neurological ROS:??no symptoms of confusion, no dizziness, no gait disturbance, no impaired coordination/balance, no memory loss, no history of seizures, no history of speech problems, no tremors , no visual changes. Objective ? Vital Signs?? Temperature: 98.3 DegF (08/28/22 21:56:00) Temperature Route: Oral (08/28/22 21:56:00) Pulse Rate: 82 bpm (08/29/22 02:12:00) Respiratory Rate:??31 br/min??High (08/29/22 02:12:00) Systolic Blood Pressure:??147 mm Hg??High (08/29/22 02:12:00) Diastolic Blood Pressure:??102 mm Hg??High (08/29/22 02:12:00) Blood pressure sites: Arm, right (08/29/22 02:12:00) Mean Arterial Pressure: 113 mm Hg (08/28/22 18:50:00) Pulse Pressure: 45 mm Hg (08/29/22 02:12:00) Oxygen Saturation: 95 % (08/29/22 02:12:00) Mode of Delivery (Oxygen): Room air (08/29/22 02:12:00) Early Warning Score: 5 (08/29/22 02:12:55) ? Pain Scores 1 - 10 Pain Scale Score: 0 (19:02) ? Intake/Output? No Data Available ? Leon Coma Scale Leon Coma Score: 15 (08/28/22 19:02:00) Motor Response-Adult: Obeys commands (08/28/22 19:02:00) Response Eye Opening: Spontaneously (08/28/22 19:02:00) Verbal Response-Adult: Oriented and converses (08/28/22 19:02:00) ? Physical Exam ?? General appearance- alert, cooperative, no distress, appears stated age, oriented to time, place and person,??obese Head- Normocephalic, without obvious abnormality, atraumatic Eyes-conjunctivae/corneas clear. PERRL, EOM's intact. Nose- Nares normal. Septum midline. Mucosa normal. No drainage or sinus tenderness. Throat-Lips, mucosa, and tongue normal. Neck- supple, symmetrical, trachea midline, no adenopathy, thyroid: not enlarged, symmetric, no tenderness/mass/nodules, no carotid bruit and no JVD Back- symmetric, no curvature.. No CVA tenderness Lungs-??clear to auscultation bilaterally Chest wall- no tenderness, no skin rash or lesions or bruising, no crepitance Heart-intermittent tachycardia with irregularly irregular heart rhythm, S1, S2 normal, no click, rub or gallop Abdomen-??soft, non-tender. Bowel sounds normal. No masses,?? No organomegaly Extremities- extremities normal, atraumatic, no cyanosis or edema, warm and well perfused. Muscle tone is normal and equal bilaterally Pulses- 2+ and symmetric on dorsal pedal pulses, posterior tibial pulses, radial pulses Skin- Skin color, texture, turgor normal. No rashes or lesions Neurologic- Normal, nonfocal, no focal weakness, ? Assessment/Plan Leidy is a 61-year-old pleasant gentleman with history of atrial fibrillation???on Eliquis and metoprolol,??recent cardioversion on August 25, 2022??who presented??to [facility]??withsymptoms of??shortness of breath and was noted to be??in A. fib??with intermittent RVR and also??acute on chronic diastolic CHF ?? Atrial fibrillation with intermittent RVR Recent cardioversion??on August 25, 2022 Telemetry monitoring TSH normal Troponin x2 negative Cardiology consultation Resume home dose of amiodarone and metoprolol Continue Eliquis ?? Acute on chronic heart failure with preserved ejection fraction Monitor ins and outs Monitor daily weights Monitor respiratory status Currently maintaining saturation on room air Increase Lasix to 80 p.o. twice daily Monitor??creatinine closely ?? Hypertension Continue valsartan at home dose ?? GERD Continue PPI ?? JR Continue??CPAP at night ?? Morbid obesity Outpatient follow-up ?? DVT prophylaxis???Eliquis ?? CODE STATUS???full code ?? Diet???n.p.o. till cardiology eval ?? Wily Guerin MD [facility] Medicine Date-August 29, 2022.?? Patient seen at 1:15 AM ?? IMPORTANT: This document was created by voice recognition software. A conscious effort has been made to improve accuracy of the oil scout. Any obvious errors or omissions should be clarified with the authorof this document. ? Histories Allergies Allergies ?(Active and Proposed [...] ? Social History Alcohol Details:??Use: Current. ??Other: [employer] only at [employer]. Employment/School Details:??Status: Employed. ??Other: [employer] and [employer]. Exercise Details:??Self assessment: Poor condition. ??Regular exercise: No. Home/Environment Details:??Living situation: Home/Independent. ??Lives with: Spouse. Nutrition/Health Details:??Diet: Regular. ??Caffeine intake amount: 20 oz cup 2-3 a day. ??Feels highly stressed: Yes. Sexual Details:??Sexually involved in last 6 months: Yes. ??Sexual orientation: Heterosexual. ??Gender identity: Male. ??Preferred pronoun: He/him. Substance Abuse Details:??Use: Never. Tobacco Details:??Never smoker ? Psychosocial History ? Family History Mother: Alcoholism; Hypertension Son: Diabetes mellitus type I ? Travel History Travel Outside [facility]: No ?? Medications Home Medications amiODARONE (amiodarone 400 mg oral tablet)?1?tab(s)?400?Milligram?By Mouth?2 times a day?for 30?Days?to start after cardioversion. take twice a day for 1 week then one a day until you see EP and they provide further instruction apixaban (Eliquis 5 mg oral tablet)?1?tab(s)?5?Milligram?By Mouth?2 times a day Aspirin (aspirin 81 mg oral tablet)?1?tab(s)?81?Milligram?By Mouth?Daily Doxazosin (doxazosin 4 mg oral tablet)?1?tab(s)?By Mouth?Daily Furosemide (furosemide 40 mg oral tablet)?80?Milligram?2?tablet?Daily?TAKE 1 TABLET BY MOUTH EVERY DAY Gabapentin (gabapentin 100 mg oral capsule)?2?capsule?By Mouth?Daily at bedtime Metoprolol (metoprolol succinate 100 mg oral capsule, extended release)?1?capsule?100?Milligram?By Mouth?Daily?for 30?Days Omeprazole (omeprazole 20 mg oral enteric coated capsule)?1?capsule?20?Milligram?By Mouth?Daily?(buys OT) tadalafil (Tadalafil (Eqv-Cialis) 20 mg oral tablet)?1?tab(s)?By Mouth?Daily?as needed? NEEDED FOR ERECTILE DYSFUNCTION Valsartan (valsartan 40 mg oral tablet)?40?Milligram?1?tablet?By Mouth?2 times a day ? Results Recent Labs BLOOD COUNT & DIFF WBC 6.7 k/mm3 ()?? 08/28/2022 20:04 RBC 5.19 m/mm3 ()?? 08/28/2022 20:04 Hgb 15.1 Gm/dL ()?? 08/28/2022 20:04 Hct 45.6 % ()?? 08/28/2022 20:04 MCV 87.9 femtoliters ()?? 08/28/2022 20:04 MCH 29.1 pg ()?? 08/28/2022 20:04 MCHC 33.1 g/dL ()?? 08/28/2022 20:04 Platelet Count 190 k/mm3 ()?? 08/28/2022 20:04 RDW-SD 41.7 femtoliters ()?? 08/28/2022 20:04 MPV 11.1 femtoliters ()?? 08/28/2022 20:04 Nucleated RBC (Automated) 0.0 #/100 WBC'S ()?? 08/28/2022 20:04 Abs. NRBC 0.0 k/mm3 ()?? 08/28/2022 20:04 Abs. Neut 5.0 k/mm3 ()?? 08/28/2022 20:04 Abs. Lymph 0.8 k/mm3 ()?? 08/28/2022 20:04 Abs. Hitchcock 0.6 k/mm3 ()?? 08/28/2022 20:04 Abs. Eo 0.2 k/mm3 ()?? 08/28/2022 20:04 Abs. Baso 0.0 k/mm3 ()?? 08/28/2022 20:04 Neut % 75.4 % ()?? 08/28/2022 20:04 Lymph % 11.8 % (Low)?? 08/28/2022 20:04 Hitchcock % 8.7 % ()?? 08/28/2022 20:04 Eos % 3.3 % ()?? 08/28/2022 20:04 Baso % 0.4 % ()?? 08/28/2022 20:04 Imm Gran 0.4 % ()?? 08/28/2022 20:04 Abs. Imm Gran 0.0 k/mm3 ()?? 08/28/2022 20:04 ?? CARDIAC Nt-Probnp 1020 pg/mL (High)?? 08/28/2022 20:04 High Sensitivity Troponin (HSTnT) 13 ng/L ()?? 08/28/2022 22:41 ?? CHEM GENERAL Sodium 145 mmol/L ()?? 08/28/2022 20:04 Potassium 4.0 mmol/L ()?? 08/28/2022 20:04 Chloride 105 mmol/L ()?? 08/28/2022 20:04 Bicarbonate Level 30 mmol/L (High)?? 08/28/2022 20:04 Anion Gap 10 ()?? 08/28/2022 20:04 Glucose Level 118 mg/dL (High)?? 08/28/2022 20:04 BUN 17 mg/dL ()?? 08/28/2022 20:04 Creatinine-Blood 0.9 mg/dL ()?? 08/28/2022 20:04 Estimated GFR Creatinine 99 ML/MIN/1.73 M2 ()?? 08/28/2022 20:04 Calcium 9.5 mg/dL ()?? 08/28/2022 20:04 Magnesium 2.2 mg/dL ()?? 08/28/2022 20:04 Protein, Total 6.4 Gm/dL ()?? 08/28/2022 20:04 Albumin 4.5 Gm/dL ()?? 08/28/2022 20:04 AG Ratio 2.4 ()?? 08/28/2022 20:04 Alkaline Phosphatase 105 units/L ()?? 08/28/2022 20:04 AST (SGOT) 17 units/L ()?? 08/28/2022 20:04 ALT (SGPT) 6 units/L ()?? 08/28/2022 20:04 Bilirubin, Total 1.0 mg/dL ()?? 08/28/2022 20:04 ?? ENDOCRINE/TUMOR MARKER TSH 2.99 uIU/mL ()?? 08/28/2022 20:04 ?? VIROLOGY COVID-19 by RT-PCR NEGATIVE ()?? 08/28/2022 21:21 COVID-19 POC Result NEGATIVE ()?? 08/28/2022 18:20 ? Abnormal Labs ?? BLOOD COUNT & DIFF ??Abs. Imm Gran ??0.0 k/mm3 () ??08/28/2022 20:04 ??Abs. NRBC ??0.0 k/mm3 () ??08/28/2022 20:04 ??Imm Gran ??0.4 % () ??08/28/2022 20:04 ??Lymph % ??11.8 % (Low) ??08/28/2022 20:04 ??Nucleated RBC (Automated) ??0.0 #/100 WBC'S () ??08/28/2022 20:04 ??RDW-SD ??41.7 femtoliters () ??08/28/2022 20:04 ? CARDIAC ??High Sensitivity Troponin (HSTnT) ??13 ng/L () ??08/28/2022 22:41 ??Nt-Probnp ??1020 pg/mL (High) ??08/28/2022 20:04 ? CHEM GENERAL ??AG Ratio ??2.4 () ??08/28/2022 20:04 ??Bicarbonate Level ??30 mmol/L (High) ??08/28/2022 20:04 ??Estimated GFR Creatinine ??99 ML/MIN/1.73 M2 () ??08/28/2022 20:04 ??Glucose Level ??118 mg/dL (High) ??08/28/2022 20:04 ? VIROLOGY ??COVID-19 POC Result ??NEGATIVE () ??08/28/2022 18:20 ??COVID-19 by RT-PCR ??NEGATIVE () ??08/28/2022 21:21 ? Note: Critical results are displayed in red. ? Blood Glucose Trend Glucose Level:??118 mg/dL??High (08/28/22 20:04:00) ? CBC, CBC w/Diff?? CBC?? Differential?? WBC: 6.7 k/mm3 (20:04) Abs. Neut: 5 k/mm3 (20:04) RBC: 5.19 m/mm3 (20:04) Abs. Lymph: 0.8 k/mm3 (20:04) Hct: 45.6 % (20:04) Abs. Hitchcock: 0.6 k/mm3 (20:04) RDW-SD: 41.7 femtoliters (20:04) Abs. Eo: 0.2 k/mm3 (20:04) Nucleated RBC (Automated): 0 #/100 WBC'S (20:04) Abs. Baso: 0 k/mm3 (20:04) Abs. NRBC: 0 k/mm3 (20:04) Neut %: 75.4 % (20:04) ?? Lymph %:??11.8 %??Low (20:04) ?? Hitchcock %: 8.7 % (20:04) ?? Eos %: 3.3 % (20:04) ?? Baso %: 0.4 % (20:04) ?? Imm Gran: 0.4 % (20:04) ?? Abs. Imm Gran: 0 k/mm3 (20:04) ? BMP, Mg, and Phos Anion Gap: 10 (20:04) Bicarbonate Level:??30 mmol/L??High (20:04) BUN: 17 mg/dL (20:04) Calcium: 9.5 mg/dL (20:04) Chloride: 105 mmol/L (20:04) Creatinine-Blood: 0.9 mg/dL (20:04) Estimated GFR Creatinine: 99 ML/MIN/1.73 M2 (20:04) Glucose Level:??118 mg/dL??High (20:04) Magnesium: 2.2 mg/dL (20:04) Potassium: 4 mmol/L (20:04) Sodium: 145 mmol/L (20:04) ?? Coagulation Profile?? No qualifying data available. ?? LFT Albumin: 4.5 Gm/dL (20:04) Alkaline Phosphatase: 105 units/L (20:04) ALT (SGPT): 6 units/L (20:04) AST (SGOT): 17 units/L (20:04) Bilirubin, Total: 1 mg/dL (20:04) ?? Urinalysis?? No qualifying data available. ?? Microbiology ?? COVID-19 (Novel Coronavirus), Rapid PCR?? Completed?? Source: Nasal Body Site: Nose Collected Dt/Tm: 08/28/2022 19:41 Last Updated Dt/Tm: 08/28/2022 22:03 ? Cardiology Labs Nt-Probnp:??1020 pg/mL??High (08/28/22 20:04:00) High Sensitivity Troponin (HSTnT): 13 ng/L (08/28/22 22:41:00) High Sensitivity Troponin (HSTnT): 13 ng/L (08/28/22 20:05:00) ?? Blood Gases?? No qualifying data available. ?? Uric/LDH?? No qualifying data available. ?? EKG study * Event Display: EKG Authored Date: * Event Display: ECG 12-Lead Authored Date: Please click on pdf link to open report * Event Display: ECG 12-Lead Authored Date: Ventricular Rate: 65 BPM Atrial Rate: 260 BPM QRS Duration: 104 ms Q-T Interval: 446 ms QTC Calculation(Bazett): 463 ms P [place]: 24 degrees R [place]: 1 degrees T [place]: 10 degrees Critical Test Result: STEMI Atrial flutter with variable A-V block Poor R wave progression in V1-V3 may be normal variant or due to anteroseptal infarct or misplaced leads Abnormal ECG When compared with ECG of 28-AUG-2022 19:00, MANUAL COMPARISON REQUIRED, DATA IS UNCONFIRMED No significant change Confirmed by MIGUE LOVE MD ([id number]) on 09/02/2022 8:26:40 AM [place]: MIGUE LOVE MD * Event Display: ECG 12-Lead Authored Date: Please click on pdf link to open report * Event Display: ECG 12-Lead Authored Date: Ventricular Rate: 99 BPM Atrial Rate: 249 BPM QRS Duration: 104 ms Q-T Interval: 330 ms QTC Calculation(Bazett): 423 ms R [place]: 8 degrees T [place]: -17 degrees Atrial flutter with variable A-V block Anterior infarct (cited on or before 25-AUG-2022) Abnormal ECG When compared with ECG of 25-AUG-2022 14:15, Atrial flutter has replaced Sinus rhythm Confirmed by NINO GLORIA MD ([id number]) on 09/02/2022 8:05:28 AM [place]: NINO GLORIA MD Heart * Event Display: Echocardiogram - Complete Authored Date: [id number] Transthoracic Echocardiography Report (TTE) Patient Demographics Patient Name LEIDY NGUYEN Date of Study 09/01/2022 Corporate Gender Male Facility Race Ethnicity Date of 1960 Height: 69.69 inches Age 61 year(s) Weight: 310.85 pounds Accession Number [id number] BSA: 2.51 m2 Room Number [id number] BMI: 45.01 kg/m2 Referring Physician Not on Staff Interpreting Chidi Walters MD Referring MD Physician JARAD SULLIVAN Engagement Mgr Timmy Gomez Indications Atrial fibrillation. Clinical History Hypertension. Obesity. Cardiomyopathy. JR Study Data Type of Study TTE procedure:Echo Complete-(Doppler, Colorflow) with Contrast. Procedure Information:Definity was administered by RN . Study Date09/01/2022 Start Time: 02:05 PM Study Location: [facility] – [place] Adult Echo Study Status: Echo lab Patient Status: FRANCO Technical Quality: Technically difficult due to body habitus. Blood Pressure:147/93 mmHg EKG: Atrial fibrillation HR: 70 bpm Contrast Medium: Definity. Amount - 2 ml 2D Measurements LV Diastolic Dimension: 5.8 cm LV Systolic Dimension: 4.3 cm LV Septum Diastolic: 0.9 cm LV PW Diastolic: 0.9 cm AO Root Dimension: 3.5 cm LA Dimension: 4.9 cm LA ESV (BP):104 ml LVOT Stroke Volume: 70.18 ml LA ESV Index: 41 ml/m2 Stroke Volume Index27.96 ml/m2 LVOT: 2.3 cm Cardiac Index:1.96 l/min/m2 Ascending Aorta:3.6 cm Doppler Measurements AV Peak Velocity: 145 cm/s AV Peak Gradient: 8.41 mmHg AV Mean Gradient: 5 mmHg AV VTI:25.1 cm LVOT Peak Velocity: 91.3 cm/s LVOT VTI16.9 cm AV Area (Continuity):2.8 cm2 Cardiac Anatomy Left Ventricle/Interventricular Septum The left ventricular size is at the upper limit of normal. Left ventricular wall thickness is normal. The LV systolic function is mildly reduced . The left ventricular ejection fraction is 40-45 %. There is mild global hypokinesis with regional variation. Left Atrium/Interatrial Septum The left atrium is mildly dilated. Aortic Valve The aortic valve leaflet opening is normal . There is no aortic stenosis. There is no significant aortic regurgitation. Mitral Valve The mitral valve appears mildly calcified. There is mild mitral regurgitation. Aorta The aortic root is normal in size. Right Ventricle The right ventricle is poorly visualized. Right ventricular systolic function appears preserved. Right Atrium The right atrium is mildly dilated. Pulmonic Valve The pulmonic valve velocity is normal. Tricuspid Valve There is trace tricuspid valve regurgitation. Pumonary Artery An accurate pulmonary artery pressure could not be obtained. Venous Structures The inferior vena cava appears mildly dilated. Pericardium/Extracardiac There is no significant pericardial effusion. Summary The left ventricular size is at the upper limit of normal. Left ventricular wall thickness is normal. The LV systolic function is mildly reduced . The left ventricular ejection fraction is 40-45 %. There is mild global hypokinesis with regional variation. The left atrium is mildly dilated. The right ventricle is poorly visualized. Right ventricular systolic function appears preserved. The right atrium is mildly dilated. Comparison Comparison is made to the study of July 18, 2022. The LV appears to be less vigorous. Signature * Event Display: Echocardiogram - Complete Authored Date: [facility] Progress note * Justyn Garcia RN: PERFORM, SIGN, VERIFY Event Display: Progress Note Hospital Authored Date: Patient: LEIDY NGUYEN Age: 61 years Sex: Male : 1960 Associated Diagnoses: None Author: Radha MCFARLANE, Justyn Findings Problem Related to Alteration in Cardiac Function (new) : Alteration in Cardiac Function/new 09/04/2022 21:00 EST Alteration in Cardiac Status Related to Cardiac Procedure, Dysrhythmia, Heart failure Goals & Outcomes, Cardiac Status Pt will resume/maintain adequate cardiac output, Pt will resume/maintain adequate hemodynamic status, Pt will resume/maintain adequate respiratory function, Pt/caregiver will state understanding of procedure, Pt will state pain at procedure site to be tolerable Cardiac Interventions Implemented Assess/monitor cardiac status, Assess/monitor neuro status, Assess/monitor respiratory status, Assess for tolerance of IV infusions; verify rate & dose, Call/Report variances in ECG to provider, Document & Monitor O2 Sats; Administer O2 as ordered, Ensure adequate caloric intake, If no bowel movement in 3 days activate bowel regime, Monitor & document daily weight, Teach/encourage deep breath & cough exercises, Teach/encourage use of incentive spirometer, Turn & reposition Q2 hours per activity restrictions, Apply pressure at puncture siteif hematoma develops, Assess baseline peripheral pulses, Assess for post procedural discomfort, Assess for post procedural hematoma at site, Assess procedure site for distal pulses, Pre/post EP study guideline, Monitor VS with each burst of rhythm/rate disturbance, Monitor VS with rhythm/rate disturbance BH Goals/Interventions, Cardiac Yes Cardiac, Problem Start 08/29/2022 13:00 Reviewed Plan with, Cardiac Status Patient Patient Progression, Cardiac Status Patient progressing according to plan . Nursing Data Cardiac Data. : Cardiac Data. 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 Vital Signs : VITAL SIGNS SECTION 09/05/2022 8:50 EST Early Warning Score 2.00 09/05/2022 8:50 EST Temperature 97.5 DegF Temperature Route Oral Pulse Rate 55 bpm Systolic Blood Pressure 129 mm Hg Diastolic Blood Pressure 78 mm Hg Blood pressure sites Arm, left Mean Arterial Pressure 95 mm Hg Pulse Pressure 51 mm Hg Oxygen Saturation 98 % Mode of Delivery (Oxygen) Room air . Evaluation Pt in bed, AOx4. Pt currently ;denies CP, SOB, & any pain. Pt is NSR on monitor, L/S: clear bilat, + CSM. Bed in lowest locked position, call jordan within reach, non-slip socks on. Will continue to monitor & reprt any changes.. Discharge Information Pulmonary Rehab Discharge : Pulmonary Rehab Discharge Status 09/02/2022 3:31 EST CPAP/BiPAP Mask Type Full CPAP/BiPAP Mask Size Large 09/01/2022 4:09 EST CPAP/BiPAP Mask Type Full CPAP/BiPAP Mask Size Large 08/31/2022 23:13 EST CPAP/BiPAP Mask Type Full CPAP/BiPAP Mask Size Large * Jose MCFARLANE, Lázaro: PERFORM, SIGN, VERIFY Event Display: Progress Note Hospital Authored Date: [id number] Patient: LEIDY NGUYEN Age: 61 years Sex: Male : 1960 Associated Diagnoses: None Author: Jose MCFARLANE, Lázaro Findings Problem Related to Alteration in Cardiac Function (new) : Alteration in Cardiac Function/new 09/04/2022 21:00 EST Alteration in Cardiac Status Related to Cardiac Procedure, Dysrhythmia, Heart failure Goals & Outcomes, Cardiac Status Pt will resume/maintain adequate cardiac output, Pt will resume/maintain adequate hemodynamic status, Pt will resume/maintain adequate respiratory function, Pt/caregiver will state understanding of procedure, Pt will state pain at procedure site to be tolerable Cardiac Interventions Implemented Assess/monitor cardiac status, Assess/monitor neuro status, Assess/monitor respiratory status, Assess for tolerance of IV infusions; verify rate & dose, Call/Report variances in ECG to provider, Document & Monitor O2 Sats; Administer O2 as ordered, Ensure adequate caloric intake, If no bowel movement in 3 days activate bowel regime, Monitor & document daily weight, Teach/encourage deep breath & cough exercises, Teach/encourage use of incentive spirometer, Turn & reposition Q2 hours per activity restrictions, Apply pressure at puncture siteif hematoma develops, Assess baseline peripheral pulses, Assess for post procedural discomfort, Assess for post procedural hematoma at site, Assess procedure site for distal pulses, Pre/post EP study guideline, Monitor VS with each burst of rhythm/rate disturbance, Monitor VS with rhythm/rate disturbance BH Goals/Interventions, Cardiac Yes Cardiac, Problem Start 08/29/2022 13:00 Reviewed Plan with, Cardiac Status Patient Patient Progression, Cardiac Status Patient progressing according to plan . Nursing Data Cardiac Data. 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 Vital Signs : VITAL SIGNS SECTION 09/04/2022 20:51 EST Temperature 97.9 DegF Temperature Route Oral Pulse Rate 72 bpm Respiratory Rate 18 br/min Systolic Blood Pressure 126 mm Hg Diastolic Blood Pressure 79 mm Hg Blood pressure sites Arm, right Mean Arterial Pressure 95 mm Hg Pulse Pressure 47 mm Hg Oxygen Saturation 97 % Mode of Delivery (Oxygen) Room air . Narrative/Incidental A/O x4. VSS. Denies chest pain or SOB. Lungs clear but dim throughout on RA. SR on tele. Bilateral groin dressings ith minimal blood, otherwise dry and intact, no swelling or hematoma at sites. + pulses throughout. See biophysical for full assessment. Plan for d/c tomorrow pending patient remains stable per MD note. Patient currently resting in bed with call jordan in reach and bed in lowest position with wheels locked. CPAP in room for patient use.. Discharge Information Pulmonary Rehab Discharge : Pulmonary Rehab Discharge Status 09/02/2022 3:31 EST CPAP/BiPAP Mask Type Full CPAP/BiPAP Mask Size Large 09/01/2022 4:09 EST CPAP/BiPAP Mask Type Full CPAP/BiPAP Mask Size Large 08/31/2022 23:13 EST CPAP/BiPAP Mask Type Full CPAP/BiPAP Mask Size Large * Trang BYRNE, Juan C: PERFORM, MODIFY Event Display: Progress Note Hospital Authored Date: Patient: ??LEIDY NGUYEN ? Age:??61 Years?Sex:??Male?:??1960?? Subjective He was seen and assessed this afternoon after EP ablation. He tolerated the procedure well. He is in NSR with HR in 60s. No acute events overnight. Plan is to discharge him tomorrow morning if he remains stable. Patient denies any chest pain, SOB, cough, fever, nausea/vomiting or abdominal pain at this time. Review of Systems All other systems are reviewed and are negative except above Objective Measurements?? Height: 177.8 cm (09/04/22) Weight: 146.1 kg (09/04/22) Dry Weight: 146.1 kg (08/29/22) Body Mass Index:??44.79 kg/m2??Critical (09/03/22) ? Vital Signs?? Temperature: 97.6 DegF (09/04/22 02:00:00) Temperature Route: Oral (09/04/22 02:00:00) Pulse Rate: 69 bpm (09/04/22 12:45:00) Respiratory Rate: 18 br/min (09/04/22 12:45:00) Systolic Blood Pressure:??144 mm Hg??High (09/04/22 12:45:00) Diastolic Blood Pressure:??93 mm Hg??High (09/04/22 12:45:00) Blood pressure sites: Arm, right (09/04/22 12:45:00) Mean Arterial Pressure: 110 mm Hg (09/04/22 12:45:00) Pulse Pressure: 51 mm Hg (09/04/22 12:45:00) Oxygen Saturation:??92 %??Low (09/04/22 12:45:00) Liters per Minute: 2 L/min (09/04/22 12:45:00) Mode of Delivery (Oxygen): Nasal cannula (09/04/22 12:45:00) Early Warning Score: 4 (09/04/22 13:06:49) ? Physical Exam General: elderly obese male,lying in bed, in no acute distress;??AAOx3 Eyes: normal conjunctiva Neck: Supple, no JVD HEENT: oral membranes moist Heart: regular rhythm, S1 and S2 heard, no MRGs Lungs: CTA bilaterally, no rales, rhonchi, wheezing or rubs. Patient not in respiratory distress Abdomen: soft, non-tender, non-distended, +BS in all quadrants. No organomegaly Extremities: Warm, no edema b/l. Neuro: CN 2-12 grossly intact, motor strength 5/5 in all extremities Musculoskeletal: Joints (no swelling, denies tenderness).?? Psych: appropriate mood, calm, cooperative _ Inpatient Medications Medications (18) Active SCHEDULED: (11) Amiodarone 200 mg Tablet (amiodarone 200 mg oral tablet) ??400 mg, By Mouth, 2 times a day Apixaban 5 mg Tablet (Eliquis) ??5 mg, By Mouth, 2 times a day Doxazosin 2 mg Tablet (doxazosin 2 mg oral tablet) ??4 mg, By Mouth, Daily Gabapentin 100 mg Capsule (gabapentin 100 mg oral capsule) ??200 mg, By Mouth, Daily at bedtime Influenza Quad (6mo - 64 yr) Fluzone 0.5mL (Influenza, Quadrivalent Vaccine (Fluzone Quad)) ??0.5 mL, Intramuscular, Once Metoprolol 100 mg XL Tablet (metoprolol 100 mg oral tablet, extended release) ??100 mg, By Mouth, Daily NaCl 0.9% Flush 3ml (NaCL 0.9% Flush) ??3 mL, IV Push, Every 8 hours Pantoprazole 20 mg EC Tablet (Protonix 20 mg oral delayed release tablet) ??20 mg, By Mouth, Daily Spironolactone 25 mg Tablet (Spironolactone Tablet) ??25 mg, By Mouth, Daily Torsemide 20 mg tablet (torsemide 20 mg oral tablet) ??20 mg 1 tablet, By Mouth, 2 times a day Valsartan 40 mg Tablet (valsartan 40 mg oral tablet) ??80 mg, By Mouth, 2 times a day [...] Recent Labs BLOOD COUNT & DIFF WBC 6.5 k/mm3 ()?? 09/04/2022 02:36 RBC 4.75 m/mm3 ()?? 09/04/2022 02:36 Hgb 13.8 Gm/dL ()?? 09/04/2022 02:36 Hct 41.8 % ()?? 09/04/2022 02:36 MCV 88.0 femtoliters ()?? 09/04/2022 02:36 MCH 29.1 pg ()?? 09/04/2022 02:36 MCHC 33.0 g/dL ()?? 09/04/2022 02:36 Platelet Count 175 k/mm3 ()?? 09/04/2022 02:36 RDW-SD 42.3 femtoliters ()?? 09/04/2022 02:36 MPV 11.1 femtoliters ()?? 09/04/2022 02:36 Nucleated RBC (Automated) 0.0 #/100 WBC'S ()?? 09/04/2022 02:36 Abs. NRBC 0.0 k/mm3 ()?? 09/04/2022 02:36 ?? CHEM GENERAL Sodium 145 mmol/L ()?? 09/04/2022 02:36 Potassium 3.4 mmol/L (Low)?? 09/04/2022 02:36 Chloride 104 mmol/L ()?? 09/04/2022 02:36 Bicarbonate Level 31 mmol/L (High)?? 09/04/2022 02:36 Anion Gap 10 ()?? 09/04/2022 02:36 Glucose Level 106 mg/dL (High)?? 09/04/2022 02:36 BUN 21 mg/dL ()?? 09/04/2022 02:36 Creatinine-Blood 1.0 mg/dL ()?? 09/04/2022 02:36 Estimated GFR Creatinine 86 ML/MIN/1.73 M2 ()?? 09/04/2022 02:36 Calcium 9.2 mg/dL ()?? 09/04/2022 02:36 Phosphorus 4.5 mg/dL ()?? 09/04/2022 02:36 Magnesium 2.2 mg/dL ()?? 09/04/2022 02:36 ? Assessment/Plan ? Leidy is a 61-year-old pleasant gentleman with history of atrial fibrillation???on Eliquis and metoprolol,??recent cardioversion on August 25, 2022??who presented??to [facility]??withsymptoms of??shortness of breath and was noted to be??in A. fib??with intermittent RVR and also??acute on chronic diastolic CHF. ?? Atrial fibrillation with intermittent RVR, recent cardioversion 08/25, and h/o BENNIE/DCCV 06/30, and has failed Sotalol and Flecainide S/p AF/AFL ablation on 09/04 Acute on chronic decompensated CHFpEF HTN Underwent Af/AFL ablation today and tolerated the procedure well He is in NSR with HR in 60s ECHO on 09/01: ??The LV systolic function is mildly reduced . The ??left ventricular ejection fraction is 40-45 %. There is mild global ??hypokinesis with regional variation. The left atrium is mildlydilated. ?? PLAN: Plan is to discharge him tomorrow morning if he remains stable. will continue on Amio 200 qd x 3 months & Toprol xl 100 continue HF meds: valsartan to 80mg BID, torsemide to 20mg BID or as tolerated cont with Eliquis, spironolactone Follow up with [facility] clinic is scheduled for 09/17 ([facility] [facility]) and 10/19 (Dr. Sosa) Will ask patient labs one week post-discharge Jardiance to be added per cards, pharmacist informed. 10 mg daily. ? GERD Continue PPI ?? JR Continue??CPAP at night -likely precipitating/ risk for A.fib ?? Morbid obesity -counselled about weight loss ?? DVT prophylaxis???Eliquis CODE STATUS???full code Diet???cardiac ?? OMN- discharge tomorrow AM if he remains stable Note * Justyn Garcia RN: PERFORM Event Display: Discharge/Transfer Note Hospital Authored Date: Nursing Discharge Note Entered On: 09/05/2022 11:45 EST Performed On: 09/05/2022 11:45 EST by Justyn Garcia RN Nursing Discharge Note 2 Discharge Time : 09/05/2022 11:45 EST Discharge Level of Care at Discharge : Home/Jail/Foster Care Patient Left Unit Via : Wheelchair Patient Accompanied Off Unit with : Significant other DC Instructions Provided & Signed by Pt : Yes Patient Understands D/C Instructions : Yes Patient Instructions Discharge Signed : Yes Did Pt have Specialty Bed or Wound Vac : No Justyn Garcia RN - 09/05/2022 11:45 EST * Trang BYRNE, Juan C: MODIFY, PERFORM, MODIFY Event Display: Discharge/Transfer Note Hospital Authored Date: [id number] Patient: ??LEIDY NGUYEN ? Age:??61 Years?Sex:??Male?:??1960?? Patient Information Discharge Location: Primary Care Physician: Merlene BYRNE, Cortez Kendall Admit Date/Time: 08/28/22 23:03 Discharge Disposition Discharge Disposition: Home: No Services Discharge Diagnosis Heart failure with preserved ejection fraction (I50.30) Nonischemic cardiomyopathy (I42.8) Atrial flutter (I48.92) S/P ablation on 09/04 Hypertension (I10) JR (obstructive sleep apnea) (G47.33) Severe obesity (E66.01) _ Discharge Medications amiODARONE (amiodarone 200 mg oral tablet)?200?Milligram?1?tablet?By Mouth?Daily apixaban (Eliquis 5 mg oral tablet)?1?tab(s)?5?Milligram?By Mouth?2 times a day Aspirin (aspirin 81 mg oral tablet)?1?tab(s)?81?Milligram?By Mouth?Daily dapagliflozin (dapagliflozin 10 mg oral tablet)?1?tab(s)?10?Milligram?By Mouth?Daily Doxazosin (doxazosin 4 mg oral tablet)?1?tab(s)?By Mouth?Daily Gabapentin (gabapentin 100 mg oral capsule)?2?capsule?By Mouth?Daily at bedtime Metoprolol (metoprolol succinate 100 mg oral capsule, extended release)?1?capsule?100?Milligram?By Mouth?Daily?for 30?Days Omeprazole (omeprazole 20 mg oral enteric coated capsule)?1?capsule?20?Milligram?By Mouth?Daily?(buys [facility]) Spironolactone (spironolactone 25 mg oral tablet)?25?Milligram?1?tablet?By Mouth?Daily tadalafil (Tadalafil (Eqv-Cialis) 20 mg oral tablet)?1?tab(s)?By Mouth?Daily?as needed? NEEDED FOR ERECTILE DYSFUNCTION torsemide (torsemide 20 mg oral tablet)?1?tab(s)?20?Milligram?By Mouth?2 times a day Valsartan (valsartan 40 mg oral tablet)?80?Milligram?2?tablet?By Mouth?2 times a day ? Medications Started Amiodarone 200 mg daily Dapagliflozin 10 mg daily Torsemide 20 mg two times daily Toprol XL 100 mg daily Spironolactone 25 mg daily Medications Discontinued Sotalol, Flecainide, Lasix, Carvedilol Doses Changed Valsartan 80 mg two times daily Allergies Allergies ?(Active and Proposed Allergies Only) lisinopril? (Severity: Unknown severity, Onset: Unknown) penicillins? (Severity: Unknown severity, Onset: Unknown) ?Reactions: Rash ? PCP Follow-Up/Heads-Up Follow up for management of blood pressure, hypertension, repeat labs. Future Appointments 2022 7:45 AM EST ?? With: Haroldo Coleman MD Where: [facility] [address] [place] [address]- 2022 4:15 PM EST ?? With: Joses MYERS, Ananda W Where: [place] [address]- Wednesday 12:45 PM EDT ?? With: Crow Sosa DO Where: [facility] [address] [place] [address]- Wednesday 10:50 AM EDT ?? With: Merlene BYRNE, Cortez Kendall Where: [facility] [address] [place] [address]- Hospital Course Patient is a 61-year-old man with known paroxysmal atrial fibrillation s/p DCCV x??3 between 06/2022 and 08/25/22, HFpEF, JR on CPAP, hypertension, obesity, BPH. The patient has been tried on flecainide, sotalol, and amio. He presented??to [facility]??with symptoms of??shortness of breath and was noted to be??in A. flutter with intermittent RVR. He was also noted to be 7 pound weightgain over the past 3 days, dyspnea on exertion/shortness of breath??and found to be in decompensated heart failure. His BNP was significantly elevated. ?? Atrial flutter with intermittent RVR, S/p AF/AFL ablation on 09/04 Acute on chronic decompensated CHFpEF HTN ?? Recent cardioversion 08/25, and h/o BENNIE/DCCV 06/30, and has failed Sotalol and Flecainide Underwent AF/AFL ablation on 09/04 today and tolerated the procedure well. He is in NSR with HR in 60s ECHO on 09/01: ??The LV systolic function is mildly reduced . The ??left ventricular ejection fraction is 40-45 %. There is mild global ??hypokinesis with regional variation. The left atrium is mildlydilated. On room air prior to discharge. ?? PLAN: Continue on Amio 200 qd x 3 months Toprol xl 100 Continue HF meds: valsartan to 80mg BID, torsemide to 20mg BID or as tolerated, spironolactone 25 mg daily cont with Eliquis 5 mg BID Follow up with [facility] clinic is scheduled for 09/17 ([employer]) and 10/19 (Dr. Sosa) Patient advised to repeat labs one week post-discharge SGLT2 (dapagliflozin) added at discharge ?? GERD Continue PPI ?? JR Continue??CPAP at night -likely precipitating/ risk for A.fib ?? Morbid obesity -counselled about weight loss ?? DVT prophylaxis???Eliquis CODE STATUS???full code Diet???cardiac Objective Assessment and Plan ? Vital Signs?? Temperature: 97.5 DegF (09/05/22 08:50:00) Temperature Route: Oral (09/05/22 08:50:00) Pulse Rate: 55 bpm (09/05/22 08:50:00) Respiratory Rate: 18 br/min (09/05/22 03:37:00) Systolic Blood Pressure: 129 mm Hg (09/05/22 08:50:00) Diastolic Blood Pressure: 78 mm Hg (09/05/22 08:50:00) Blood pressure sites: Arm, left (09/05/22 08:50:00) Mean Arterial Pressure: 95 mm Hg (09/05/22 08:50:00) Pulse Pressure: 51 mm Hg (09/05/22 08:50:00) Oxygen Saturation: 98 % (09/05/22 08:50:00) Liters per Minute: 2 L/min (09/04/22 12:45:00) Mode of Delivery (Oxygen): Room air (09/05/22 08:50:00) Early Warning Score: 2 (09/05/22 08:56:42) ? . Physical Exam General: elderly obese patient, lying in bed, in no acute distress;??AAOx3 Eyes: normal conjunctiva Neck: Supple, no JVD HEENT: oral membranes moist Heart: regular rhythm, S1 and S2 heard, no MRGs Lungs: CTA bilaterally, no rales, rhonchi, wheezing or rubs. Patient not in respiratory distress Abdomen: soft, non-tender, non-distended, +BS in all quadrants. No organomegaly Extremities: Warm, no edema b/l. Neuro: CN 2-12 grossly intact, motor strength 5/5 in all extremities Musculoskeletal: Joints (no swelling, denies tenderness).?? Psych: appropriate mood, calm, cooperative [facility] Electrophysiology Patient Education Titles What Is Heart Failure??? Follow-Up Appointments Added Follow Up ?Time Frame ?Comments Merlene BYRNE, Cortez Kendall?1 to 2 weeks?See your primary care provider for refill of your medications and for monitoring of your blood pressure and repeat labs Patient Instructions You were admitted for atrial fibrillation and heart failure. You underwent ablation on 09/04/22 and you are in sinus rhythm now. Make sure you take your medications regularly. Follow up with [facility] clinic is on 09/17 with nurse practitioner and and on 10/[address] Sosa You will need to repeat blood labs 1 week after discharge. The lab orders are in already. Call your primary care physician or rod drawer before you run out of your medications. If your symptoms worsen please come back to emergency department. Post Discharge Care F/u with cardiology and primary care physician. Home Health Face to Face ^HomeHealthFTF Results Discharge Labs BLOOD COUNT & DIFF WBC 8.9 k/mm3 ()?? 09/05/2022 05:39 RBC 4.52 m/mm3 (Low)?? 09/05/2022 05:39 Hgb 13.0 Gm/dL (Low)?? 09/05/2022 05:39 Hct 40.1 % (Low)?? 09/05/2022 05:39 MCV 88.7 femtoliters ()?? 09/05/2022 05:39 MCH 28.8 pg ()?? 09/05/2022 05:39 MCHC 32.4 g/dL (Low)?? 09/05/2022 05:39 Platelet Count 172 k/mm3 ()?? 09/05/2022 05:39 RDW-SD 43.0 femtoliters ()?? 09/05/2022 05:39 MPV 11.3 femtoliters ()?? 09/05/2022 05:39 Nucleated RBC (Automated) 0.0 #/100 WBC'S ()?? 09/05/2022 05:39 Abs. NRBC 0.0 k/mm3 ()?? 09/05/2022 05:39 Abs. Neut 5.0 k/mm3 ()?? 08/28/2022 20:04 Abs. Lymph 0.8 k/mm3 ()?? 08/28/2022 20:04 Abs. Hitchcock 0.6 k/mm3 ()?? 08/28/2022 20:04 Abs. Eo 0.2 k/mm3 ()?? 08/28/2022 20:04 Abs. Baso 0.0 k/mm3 ()?? 08/28/2022 20:04 Neut % 75.4 % ()?? 08/28/2022 20:04 Lymph % 11.8 % (Low)?? 08/28/2022 20:04 Hitchcock % 8.7 % ()?? 08/28/2022 20:04 Eos % 3.3 % ()?? 08/28/2022 20:04 Baso % 0.4 % ()?? 08/28/2022 20:04 Imm Gran 0.4 % ()?? 08/28/2022 20:04 Abs. Imm Gran 0.0 k/mm3 ()?? 08/28/2022 20:04 ?? CARDIAC Nt-Probnp 591 pg/mL (High)?? 08/31/2022 06:17 High Sensitivity Troponin (HSTnT) 13 ng/L ()?? 08/28/2022 22:41 ?? CHEM GENERAL Sodium 142 mmol/L ()?? 09/05/2022 05:39 Potassium 4.1 mmol/L ()?? 09/05/2022 05:39 Chloride 102 mmol/L ()?? 09/05/2022 05:39 Bicarbonate Level 26 mmol/L ()?? 09/05/2022 05:39 Anion Gap 14 ()?? 09/05/2022 05:39 Glucose Level 121 mg/dL (High)?? 09/05/2022 05:39 BUN 27 mg/dL (High)?? 09/05/2022 05:39 Creatinine-Blood 1.0 mg/dL ()?? 09/05/2022 05:39 Estimated GFR Creatinine 87 ML/MIN/1.73 M2 ()?? 09/05/2022 05:39 Calcium 9.0 mg/dL ()?? 09/05/2022 05:39 Phosphorus 3.5 mg/dL ()?? 09/05/2022 05:39 Magnesium 2.2 mg/dL ()?? 09/05/2022 05:39 Protein, Total 6.4 Gm/dL ()?? 08/28/2022 20:04 Albumin 4.5 Gm/dL ()?? 08/28/2022 20:04 AG Ratio 2.4 ()?? 08/28/2022 20:04 Alkaline Phosphatase 105 units/L ()?? 08/28/2022 20:04 AST (SGOT) 17 units/L ()?? 08/28/2022 20:04 ALT (SGPT) 6 units/L ()?? 08/28/2022 20:04 Bilirubin, Total 1.0 mg/dL ()?? 08/28/2022 20:04 ? ENDOCRINE/TUMOR MARKER TSH 2.99 uIU/mL ()?? 08/28/2022 20:04 ? HEME OTHER Hold Lavender Top SPECIMEN DISCARDED AFTER 24 HOURS. ()?? 09/02/2022 07:54 ? VIROLOGY COVID-19 by RT-PCR NEGATIVE ()?? 08/28/2022 21:21 COVID-19 PCR Specimen Source NASAL ()?? 08/31/2022 06:09 COVID-19 PCR Result NEGATIVE ()?? 08/31/2022 06:09 COVID-19 POC Result NEGATIVE ()?? 08/28/2022 18:20 ? 36??minutes spent on discharge * Justyn Garcia RN: PERFORM Event Display: Patient Education/Instruction Authored Date: [id number] Inpatient Adult Discharge Instructions [address] [address] Name: LEIDY NGUYEN : 1960 Visit: 08/28/2022 23:03:00 Current Date: 09/05/2022 10:36 Account: [id number] Inpatient Adult Discharge Instructions We would like [...] and their families. Surveys are administered by [employer] ?? If further treatment with your primary care physician or another doctor is recommended, it is important for you to keep the appointment. Call your primary care physician or return to the Emergency Department immediately if your condition worsens, fails to improve, or new symptoms develop. If you need to find a doctor, you can call [facility] [employer] for a referral at [phone] or toll free at [phone] or log in to [email or web address].. ?? You can view and manage your care through the patient portal or by using a health care nidia of your choosing. [employer] is a website that allows you to securely view your medical information including your hospital discharge summary, office visit summaries, medications and follow-up visits. You can also request appointments, renew medications, and request access to your medical information using a health care nidia of your choosing, or just ask a question. You can enroll at [email or web address] or register during your next office visit. You have been discharged from [facility], Patient Care Unit: M5. If you have any questions regarding these instructions after you leave, please call us and we will be happy to assist you. [facility] Your Care Team Attending Physician Trang BYRNE, Juan C Consulting Providers Crow Sosa DO; Etienne BYRNE, Yessenia Darnell; Sam BYRNE, Dilshad Strange; Chloe BYRNE, Kevin Darnell Discharging Providers Juan C Costello MD Reason for Admission CHF EXAC AFIB Your Diagnosis Heart failure with preserved ejection fraction Nonischemic cardiomyopathy Atrial flutter Hypertension JR (obstructive sleep apnea) Severe obesity Tests Performed Below is a partial list of the tests performed during your hospitalization. You may have had other tests and procedures not included in this list. Please discuss all test results with your provider. Basic Metabolic Panel BUN Calcium Level CBC CBC w/ Differential COVID-19 (Novel Coronavirus), Rapid PCR COVID-19 RNA POC Creatinine Electrolytes Glucose Level High??Sensitivity??Troponin T HOLD LAVENDER TUBE Magnesium Level NT ProBNP Phosphorus Level ProBNP Troponin T, High Sensitivity TSH with T4 Reflex (Adults Only) CT Heart W/ Dye Function CXR W/ Frontal and Lat Primary Care Provider Cortez Blunt MD Advance Directive Health Care Proxy on File Yes - Health Care Proxy No qualifying data available. Discharge Vitals Temperature: 97.5 DegF Height: 177.8 cm Pulse Rate: 55 bpm Weight: 145.2 kg Respiratory Rate: 18 br/min Body Mass Index:??45.93 kg/m2??Critical Systolic Blood Pressure: 129 mm Hg Body surface area: 2.68 Diastolic Blood Pressure: 78 mm Hg ?? Oxygen Saturation: 98 % ?? Studies Pending All tests and labs ordered during this hospital stay have been completed unless listed below. Please discuss all pending results with your provider listed above in these instructions. ?? Basic Metabolic Panel CBC COVID-19 (2019 Novel Coronavirus) PCR Comprehensive Metabolic Panel Hold Lavender Tube (BB) Magnesium Level Phosphorus Level What to do next Instructions From Your Doctor You were admitted for atrial fibrillation and heart failure. You underwent ablation on 09/04/22 and you are in sinus rhythm now. Make sure you take your medications regularly. Follow up with [facility] clinic is on 09/17 with nurse practitioner and and on 10/[address] Sosa You will need to repeat blood labs 1 week after discharge. The lab orders are in already. Call your primary care physician or rod drawer before you run out of your medications. If your symptoms worsen please come back to emergency department. Discharge Orders Scheduled Follow-Up Appointments 2022 7:45 AM EST ?? With: Haroldo Coleman MD Where: [place] [address]- 2022 4:15 PM EST ?? With: Ananda Loaiza NP Where: [place] [address]- Wednesday 12:45 PM EDT ?? With: Crow Sosa DO Where: [address] [address]- Wednesday 10:50 AM EDT ?? With: Cortez Blunt MD Where: [place] [address]- You Need to Schedule the Following Appointments Follow Up with??Cortez Blunt MD When??Within 1 to 2 weeks Why: See your primary care provider for refill of your medications and for monitoring of your bloodpressure and repeat labs Where: ?? Discharge Medications LEIDY NGUYEN :1960 Visit Date:08/28/2022 Medications: Please continue your medications until treatment is completed or stopped by your provider. Medications not listed below should be discontinued. Discuss any questions related to medications with your provider. What How Much When Instructions Next Dose New dapagliflozin (dapagliflozin 10 mg oral tablet) 1 tab(s) Oral Daily Pickup at [facility] 3 tomorrow New Spironolactone (spironolactone 25 mg oral tablet) 1 tab(s) Oral Daily Pickup at [place] [address] tomorrow New torsemide (torsemide 20 mg oral tablet) 1 tab(s) Oral Twice a day Pickup at [place] [address] tonight Changed Valsartan (valsartan 40 mg oral tablet) 2 tab(s) Oral Twice a day Pickup at [place] [address] tonight Changed amiODARONE (amiodarone 200 mg oral tablet) 1 tab(s) Oral Daily Pickup at [place] [address] tomorrow Unchanged apixaban (Eliquis 5 mg oral tablet) 1 tab(s) Oral Twice a day tonight Unchanged Aspirin (aspirin 81 mg oral tablet) 1 tab(s) Oral Daily tomorrow Unchanged Doxazosin (doxazosin 4 mg oral tablet) 1 tab(s) Oral Daily tomorrow Unchanged Gabapentin (gabapentin 100 mg oral capsule) 2 capsule Oral Daily at Bedtime tonight Unchanged Metoprolol (metoprolol succinate 100 mg oral capsule, extended release) 1 capsule Oral Daily Duration: 30 Days Pickup at [place] [address] tomorrow Unchanged Omeprazole (omeprazole 20 mg oral enteric coated capsule) 1 capsule Oral Daily (buys OTC) ?? tomorrow Unchanged tadalafil (Tadalafil (Eqv-Cialis) 20 mg oral tablet) 1 tab(s) Oral Daily as needed for NEEDED FOR ERECTILE DYSFUNCTION as needed Pharmacy Information [place] [address]: [address], [place] [id number] [phone] ?? What How Much When Comments Stop Taking Furosemide (furosemide 40 mg oral tablet) 2 tab(s) Daily TAKE 1 TABLET BY MOUTH EVERY DAY ?? stop Test Results Below is a partial list of the most recent Laboratory test results done prior to this discharge. You may have had other tests and procedures not included in this list. Please discuss all test resultswith your provider. Basic Metabolic Panel (09/05/2022) ???Sodium - 142 mmol/L???Potassium - 4.1 mmol/L???Chloride - 102 mmol/L???Bicarbonate Level - 26 mmol/L???Anion Gap - 14???Glucose Level - 121 mg/dL???BUN - 27 mg/dL???Creatinine-Blood - 1.0 mg/dL???Estimated GFR Creatinine - 87 ML/MIN/1.73 M2???Calcium - 9.0 mg/dL BUN (09/01/2022) ???BUN - 21 mg/dL Calcium Level (09/01/2022) ???Calcium - 9.6 mg/dL CBC (09/05/2022) ???WBC - 8.9 k/mm3???RBC - 4.52 m/mm3???Hgb - 13.0 Gm/dL???Hct - 40.1 %???MCV - 88.7 femtoliters???MCH - 28.8 pg???MCHC - 32.4 g/dL???Platelet Count - 172 k/mm3???RDW-SD - 43.0 femtoliters???MPV - 11.3 femtoliters???Nucleated RBC (Automated) - 0.0 #/100 WBC'S???Abs. NRBC - 0.0 k/mm3 CBC w/ Differential (08/28/2022) ???WBC - 6.7 k/mm3???RBC - 5.19 m/mm3???Hgb - 15.1 Gm/dL???Hct - 45.6 %???MCV - 87.9 femtoliters???MCH - 29.1 pg???MCHC - 33.1 g/dL???Platelet Count - 190 k/mm3???RDW-SD - 41.7 femtoliters???MPV - 11.1 femtoliters???Nucleated RBC (Automated) - 0.0 #/100 WBC'S???Abs. NRBC - 0.0 k/mm3???Abs. Neut - 5.0 k/mm3???Abs. Lymph - 0.8 k/mm3???Abs. Hitchcock - 0.6 k/mm3???Abs. Eo - 0.2 k/mm3???Abs. Baso - 0.0 k/mm3???Neut % - 75.4 %???Lymph % - 11.8 %???Hitchcock % - 8.7 %???Eos % - 3.3 %???Baso % - 0.4 %???Imm Gran - 0.4 %???Abs. Imm Gran - 0.0 k/mm3 COVID-19 (Novel Coronavirus), Rapid PCR (08/28/2022) ???COVID-19 by RT-PCR - NEGATIVE COVID-19 RNA POC (08/28/2022) ???COVID-19 POC Result - NEGATIVE Creatinine (09/01/2022) ???Creatinine-Blood - 0.9 mg/dL???Estimated GFR Creatinine - 98 ML/MIN/1.73 M2 Electrolytes (09/01/2022) ???Sodium - 145 mmol/L???Potassium - 3.6 mmol/L???Chloride - 104 mmol/L???Bicarbonate Level - 30 mmol/L???Anion Gap - 11 Glucose Level (09/01/2022) ???Glucose Level - 97 mg/dL High??Sensitivity??Troponin T (08/28/2022) ???High Sensitivity Troponin (HSTnT) - 13 ng/L HOLD LAVENDER TUBE (09/02/2022) ???Hold Lavender Top - SPECIMEN DISCARDED AFTER 24 HOURS. Magnesium Level (09/05/2022) ???Magnesium - 2.2 mg/dL NT ProBNP (08/31/2022) ???Nt-Probnp - 591 pg/mL Phosphorus Level (09/05/2022) ???Phosphorus - 3.5 mg/dL ProBNP (08/28/2022) ???Nt-Probnp - 1020 pg/mL Troponin T, High Sensitivity (08/28/2022) ???High Sensitivity Troponin (HSTnT) - 13 ng/L TSH with T4 Reflex (Adults Only) (08/28/2022) ???TSH - 2.99 uIU/mL Allergies (NKA means No Known Allergies) lisinopril penicillins??(Rash) Problems Active Problems??(13) Atrial flutter?? Benign essential hypertension?? Bilateral knee pain?? Diverticulosis?? Heart failure with preserved ejection fraction?? Hemorrhoids?? Hypertension?? Migraine?? Nonischemic cardiomyopathy?? Obesity?? JR (obstructive sleep apnea)?? Severe obesity?? Sleep related hypoventilation/hypoxemia in other disease?? Education Materials Below is the list of Educational Leaflet Providered with your Discharge Instructions. What Is Heart Failure??? Valuables and Belongings I fully understand and agree that [facility] accepts no responsibility for all my [...] Review of Valuable and Belonging List: With patient Date for Pt to Sign Valuables/Belongings: 08/29/22 16:02:00 ?? Other Discharge Information ? Pulmonary Rehab [...] are strongly encouraged to quit. Please call [facility] [employer] Link at [phone] or [phone] ([phone]) or log in to [email or web address] for referrals to smoking cessation programs. ?? The National Suicide Prevention Hotline is available 01/03 if you or someone you know needs to find a reason to keep living. By calling 6-245-674-ezbm (9690) you'll be connected to a skilled, trained counselor at a crisis center in your area. INPATIENT DISCHARGE INSTRUCTIONS SIGNATURE PAGE LEIDY NGUYEN Location:[facility] Registration Date and Time:08/28/2022 23:03 [facility] Primary Care Physician: Merlene BYRNE, Cortez Kendall, I LEIDY NGUYEN, have received the above patient education materials/instructions and have verbalized understanding. If ambulance or transport services are being used I further acknowledge being given a choice of service. ?? If you need to contact me, please call me at this number: . Patient/Aeronautical Inspector Name: Patient/Aeronautical Inspector Signature: Relationship to Patient: Witness Name/Signature: Date: * Juan C Costello MD: PERFORM, SIGN, VERIFY Event Display: Patient Education Handout Authored Date: * Justyn Garcia RN: PERFORM Event Display: Patient Education Leaflets Authored Date: Dapagliflozin Oral Tablet ?? [id number] Dapagliflozin Oral Tablet Brands: [employer] Uses This medicine is used for the following purposes: ??? diabetes ??? heart failure ?? Instructions This medicine may be taken with or without food. It is very important that you take the medicine at about the same time every day. It will work bestif you do this. Store at room temperature away from heat, light, and moisture. Do not keep in the bathroom. Drink plenty of water while on this medicine. Tell your doctor if you have severe or persistent sweating, diarrhea or vomiting. These can increase your risk of a serious side effect. It is important that you keep taking [...] about all medicines taken. Include prescription and oddy-opu-mrqsyjg medicines, vitamins, and herbal medicines. Speak with your doctor or pharmacist before starting or stopping any medicine. Tell your doctor if symptoms do not get better or if they get worse. This medicine may cause low blood sugar. Eat regular meals and exercise as instructed by your doctor. Tell your doctor if you have symptoms of low blood sugar such as nausea, sweating, cold skin, fast heartbeat, hunger, and irritability. Keep all appointments for medical exams and tests while on this medicine. ?? Cautions Tell your doctor and pharmacist if you ever had an allergic reaction to a medicine. Do not use the medication any [...] doctor whether you should be onthis medicine. Avoid becoming overheated during exercise or other activities. Try to stay cool in hot weather. Tell the doctor or pharmacist if you are , planning to be , or . Do not breastfeed while on this medicine. Do not share this medicine [...] experience these or other side effects. ??? dizziness ??? low blood sugar ??? increased urinary frequency ??? waking up at night to urinate Call your doctor or get medical help right away if you notice any of these more serious side effects: ??? blurry vision ??? dry mouth ??? swelling of the legs, feet, and hands ??? fainting ??? fever orchills ??? numbness or tingling in hands and feet ??? fast or irregular heart beats ??? nausea and vomiting ??? shakiness ??? shortness of breath ??? stomach pain ??? sweating ??? thirst ??? unusual or unexplained tiredness or weakness ??? difficulty or discomfort urinating ??? blood in urine ??? vaginal itching or discharge ??? vaginal itching or yeast infection ??? yeast infection of the penis (redness, itching, swelling or discharge) A few people may have an allergic reaction to this medicine. Symptoms can include difficulty breathing, skin rash, itching, swelling, or severe dizziness. If you notice any of these symptoms, seek medical help quickly. ?? Extra Please speak with your doctor, nurse, or pharmacist if you have any questions about this medicine. ?? [email or web address] IMPORTANT NOTE: This document tells you briefly how to take your medicine, but it does not tell youall there is to know about it. Your doctor or pharmacist may give you other documents about your medicine. Please talk to them if you have any questions. Always follow their advice. There is a more complete description of this medicine available in Turkmen. Scan this code on your smartphone or tablet or use the web address below. You can also ask your pharmacist for a printout. If you have any questions, please ask your pharmacist. The display and use of this drug information is subject to Terms of Use. Copyright(c) 2021 [employer]. ?? [employer]. All rights reserved. This information is not intended as a substitute for professional medical care. Always follow your healthcare professional's instructions. ?? * Justyn Garcia RN: PERFORM Event Display: Patient Education Leaflets Authored Date: [id number] Amiodarone Oral Tablet ?? [id number] Amiodarone Oral Tablet Brands: Cordarone, Pacerone Uses For irregular heartbeat. ?? Instructions This [...] moisture. Do not keep in the bathroom. Avoid grapefruit juice while on this medicine. This medicine may cause you to become more sensitive to the sun. Use sunscreen or wear protective clothing when you are exposed to the sun. It may take several weeks for this medicine to fully work. It is important that you keep taking [...] about all medicines taken. Include prescription and peqn-sju-fhhkydq medicines, vitamins, and herbal medicines. Speak with your doctor or pharmacist before starting or stopping any medicine. Tell your doctor if symptoms do not get better or if they get worse. Do not suddenly stop taking this medicine. Check with your doctor before stopping. Keep all appointments for medical exams and tests while on this medicine. ?? Cautions Tell your doctor and pharmacist if you ever had an allergic reaction to a medicine. Some patients with weak hearts may have worsening of symptoms. If you notice difficulty breathing, weight gain, or swelling of your legs or ankles, let your doctor know right away. This medicine is associated with an increased risk of serious heart problems, heart attack, and stroke. Please speak with your doctor about the risks and benefits of using this medicine. Contact yourdoctor immediately if you experience chest pain or difficulty breathing. Do not use the medication any more than instructed. Your ability to stay alert or to react quickly may be impaired by this medicine. Do not drive or operate machinery until you know how this medicine will affect you. Please check with your doctor before drinking alcohol while on this medicine. Do not breastfeed while on this medicine. This medicine can pass through breast milk to the baby. This medicine can hurt a new baby in the womb. If you become while on this medicine, tell your doctor immediately. Your doctor may switch you to a different medicine. Do not share this medicine with anyone who has not been prescribed this medicine. Some patients have serious side effects from this medicine. Ask your pharmacist to show you the information from the Food and Drug Administration (FDA) and discuss it with you. ?? Side Effects The following is a list of some common side effects from this medicine. Please speak with your doctor about what you should do if you experience these or other side effects. ??? decreased appetite ??? constipation ??? lack of energy and tiredness ??? nausea and vomiting Call your doctor or get medical help right away if you notice any of these more serious side effects: ??? agitated feeling or trouble sleeping ??? loss of balance ??? bleeding or bruising ??? chest pain ??? changes in memory, mood, or thinking ??? difficulty concentrating ??? cough/wheezing/shortnessof breath ??? dizziness ??? swelling of the legs, feet, and hands ??? fainting ??? swelling in the neck or throat ??? hair loss ??? numbness or tingling in hands and feet ??? fast, irregular, or slowheartbeat ??? signs of liver damage (such as yellowing of eye or skin, dark urine, or unusual tiredness) ??? shakiness ??? blue-arguelles skin color ??? sweating ??? difficulty adjusting to changes in temperature ??? blurring or changes of vision ??? weakness ??? sudden or unexplained change in weight A few people may have an allergic reaction to this medicine. Symptoms can include difficulty breathing, skin rash, itching, swelling, or severe dizziness. If you notice any of these symptoms, seek medical help quickly. ?? Extra Please speak with your doctor, nurse, or pharmacist if you have any questions about this medicine. ?? [email or web address] IMPORTANT NOTE: This document tells you briefly how to take your medicine, but it does not tell youall there is to know about it. Your doctor or pharmacist may give you other documents about your medicine. Please talk to them if you have any questions. Always follow their advice. There is a more complete description of this medicine available in Turkmen. Scan this code on your smartphone or tablet or use the web address below. You can also ask your pharmacist for a printout. If you have any questions, please ask your pharmacist. The display and use of this drug information is subject to Terms of Use. Copyright(c) 2021 [employer]. ?? [employer]. All rights reserved. This information is not intended as a substitute for professional medical care. Always follow your healthcare professional's instructions. ?? * Justyn Garcia RN: PERFORM Event Display: Patient Education Leaflets Authored Date: [id number] Metoprolol Extended Release Oral Capsule ?? [id number] Metoprolol Extended Release Oral Capsule Brands: [employer] Uses This medicine is used for the following purposes: ??? angina ??? heart attack ??? heart failure ???high blood pressure ??? irregular heart beat ??? prevent migraine headaches ??? movement disorder ?? Instructions Swallow the medicine without crushing or chewing it. You may sprinkle medicine from capsule onto some soft food. Eat the entire mixture right away without chewing or crushing the medicine. If medicine is mixed with food, use it within 60 minutes. Throw away any leftover food. Do not savefor later use. If you are giving this medicine through a tube into the stomach, ask your doctor or pharmacist for specific directions. This medicine may be taken with or without food. Swallow with a full glass (8 oz) of water unless your doctor gives you different instructions. It is very important that you take [...] about all medicines taken. Include prescription and rdkl-daw-lvkzgfk medicines, vitamins, and herbal medicines. Speak with your doctor or pharmacist before starting or stopping any medicine. This medicine may cause low blood sugar. Eat regular meals and exercise as instructed by your doctor. Tell your doctor if you have symptoms of low blood sugar such as nausea, sweating, cold skin, fast heartbeat, hunger, and irritability. If you have diabetes, this medicine may hide some signs of low blood sugar, such as fast heartbeat.Check your blood sugar regularly and for other signs of low blood sugar. Do not suddenly stop taking this medicine. Check with your doctor before stopping. Parts of this medicine may come out in the stool. This is normal. Keep all appointments for medical exams and tests while on this medicine. ?? Cautions Tell your doctor and pharmacist if you ever had an allergic reaction to a medicine. Do not use the medication any more than instructed. Your ability to stay alert or to react quickly may be impaired by this medicine. Do not drive or operate machinery until you know how this medicine will affect you. Please check with your doctor before drinking alcohol while on this medicine. Avoid smoking while on this medicine. Smoking may increase your risk for serious side effects. Tell the doctor or pharmacist if you are , planning to be , or . Do not share this medicine with anyone who has not been prescribed this medicine. ?? Side Effects The following is a list of some common side effects from this medicine. Please speak with your doctor about what you should do if you experience these or other side effects. ??? diarrhea ??? dizziness or drowsiness ??? lack of energy and tiredness ??? slow heartbeat ??? low blood pressure Call your doctor or get medical help right away if you notice any of these more serious side effects: ??? confusion ??? depression or feeling sad ??? swelling of the legs, feet, and hands ??? fainting ??? mood changes ??? pale or blue skin, lips or fingernails ??? shortness of breath ??? unusual or unexplained tiredness or weakness ??? sudden or unexplained weight gain A few people may have an allergic reaction to this medicine. Symptoms can include difficulty breathing, skin rash, itching, swelling, or severe dizziness. If you notice any of these symptoms, seek medical help quickly. ?? Extra Please speak with your doctor, nurse, or pharmacist if you have any questions about this medicine. ?? [email or web address] IMPORTANT NOTE: This document tells you briefly how to take your medicine, but it does not tell youall there is to know about it. Your doctor or pharmacist may give you other documents about your medicine. Please talk to them if you have any questions. Always follow their advice. There is a more complete description of this medicine available in [place]. Scan this code on your smartphone or tablet or use the web address below. You can also ask your pharmacist for a printout. If you have any questions, please ask your pharmacist. The display and use of this drug information is subject to Terms of Use. Copyright(c) 2021 [employer]. ?? The [employer]. All rights reserved. This information is not intended as a substitute for professional medical care. Always follow your healthcare professional's instructions. ?? * BHSPowerscribe , CIS S: TRANSCPrasanna Robertson MD: VERIFY Event Display: Result: Authored Date: Exam: CT Heart W/ Dye Function History: Unspecified atrial flutter. Heart failure with preserved ejection fraction, hypertension, nonischemic cardiomyopathy. Pre-ablation evaluation, with 3-D cardiac CTA including pulmonary vein mapping required for upcoming electrophysiology procedure. Comparison: None. Technique: Pulmonary vein mapping protocol CTA. Automatic tube modulation based on attenuation fromAP and lateral topograms or weight-based algorithm was used to optimize exposure parameters. Bolus tracking used for timing. The patient received 100 cc Omnipaque 300 and 40 cc saline IV. A 51 Give [place] scanner with 16 cm wide detector was used. 3D MIP reconstructions of the distal pulmonary veins were performed on a separate workstation, as well as 3D volume rendering, with images saved to the PACS. Radiation Dose Parameters: CTDIvol Body: 30.96 mGy, DLP Body: 519 mGy*cm. FINDINGS: The left atrium is enlarged and measures approximately 6.5 cm AP x 8.6 cm RL x 6.8 cm SI. Left atrial appendage revealed no evidence for thrombus. Pulmonary vein configuration and measurements as follows: There are 2 standard right pulmonary veins and a left common trunk with 2 major branches. Right Superior: 34 mm x 25 mm diameter. Right Inferior: 21 mm x 20 mm diameter. Early, large superior branch Left Common Trunk: 32 mm x 23 mm diameter. Left Superior branch: 19 mm x 17 mm diameter. Left Inferior branch: 19 mm x 16 mm diameter. Early, large, posterior-superior branch and small inferior branch. Additional Findings: Heart size normal. Mild coronary artery calcifications. Pericardium unremarkable. Visualized portions of the thoracic aorta normal in caliber. The visualized portions of lungs were clear. Small bilateral pleural effusions. Upper abdominal images unremarkable. IMPRESSION: 1. Pulmonary veins evaluated and measured as above. 2. Small bilateral pleural effusions. WSN: [id number] Ordering Physician: Dilshad Vargas Dictated By: Prasanna Padilla MD Dictated Date/Time: 09/02/22 10:43 a Reviewed By: Prasanna Padilla MD Signed By: Prasanna Padilla MD Signed Date/Time: 09/02/22 10:43 am Transcribed By: SHAYY Transcribed Date/Time: 09/02/22 10:42 am * JEFE Wong S: TRANSCRIBE Prasanna Mohan MD J: VERIFY Event Display: Result: Authored Date: Chest 2 Views Frontal and Lat Hx of Present Illness: pt was recently cardioverted on wednesday for a.fib RVR at cards office, pt isnow back in a.fib, c o worsening SOB and lower extremity swelling. pt also c o abd pain and distention. Pt very SOB with exertion; Reason: Cough; Clinical Question(s): Pulmonary Edema COMPARISON: 08/04/2022 FINDINGS: LINES AND TUBES: None. LUNGS AND PLEURA: Central vascularity is prominent and indistinct with perihilar interstitial edema, unchanged. Small pleural effusions, unchanged. No pneumothorax. HEART, MEDIASTINUM AND SADIE: Mild prominence of the cardiac silhouette. Normal mediastinal and hilar contour. BONES AND SOFT TISSUES: No acute abnormality. IMPRESSION: Cardiac enlargement with pulmonary edema and small pleural effusions consistent with CHF. Similar findings are seen on the prior exam. WSN: [id number] Ordering Physician: Virginie Flower Dictated By: Prasanna Mohan MD Dictated Date/Time: 08/28/22 9:34 pm Reviewed By: Prasanna Mohan MD Signed By: Prasanna Mohan MD Signed Date/Time: 08/28/22 9:34 pm Transcribed By: SHAYY Transcribed Date/Time: 08/28/22 9:33 pm Patient Care team information Care Team Personnel Name: Lázaro Garcia RN Position: [facility] RN Member Role: Primary Care Nurse Name: Alanis Harris Position: [facility] RN Supv Member Role: Primary Care Nurse Name: Brittani Anguiano RN Position: [facility] RN Member Role: Primary Care Nurse Name: Cortez Blunt MD Position: [facility] Primary Care Physician Member Role: PCP Address: Address: [address] [place] [id number] Name: Edna Kelly RN Position: [facility] RN Member Role: Primary Care Nurse Name: Ron Babb RN Position: [facility] RN Member Role: Primary Care Nurse Name: Krystin BEVERLY Attending Position: [facility] ED Medicine Name: Meme Macdonald Position: [facility] ED TA [facility] Member Role: Scientific Writer Name: Teri Garnica RN Position: [facility] ED RN W/OE and Tasks Member Role: Patient Care Provider Name: Rohit Morillo Position: [facility] ED OA Charge Member Role: ED Associate Care Team Related Persons Name: CECY NGUYEN Address: home [address] [place] [address] Name: LEIDY NGUYEN JR Address: home [address] [place] [address]
--- OUTSIDE RECORDS SUMMARY | 2024-05-03 22:13 | XMS_ITS | Continuity of Care Document ---
Author Organization [facility] Address [address] [place] [address]- Care Team Providers Care Harvest Worker Field Crop Name Role Phone Merlene BYRNE, Cortez Kendall Primary Care Physician [phone] Encounter [facility] Date(s): 08/25/22 - 08/25/[address] [id number] Discharge Disposition: A-D/C Home Attending Physician: Crow Sosa DO Admitting Physician: Crow Sosa DO Referring Physician: Bonifacio COLLEGE ATHLETE, Kassandra Allergies, Adverse Reactions, Alerts Substance Reaction Severity Status lisinopril Active penicillins Rash Active Immunizations Given and Recorded Vaccine Date Status Refusal Reason tetanus/diphtheria/pertussis, acel(Tdap) 1 12/20/17 Given Not Given Vaccine Date Status Refusal Reason Influenza Virus Vaccine (oldterm) 06/21/19 Not Giv en Patient Refuses 1Result Comment: [12/20/2017] [facility] 67363-423-94 Medications amiodarone 400 mg oral tablet 1 [...] 5 Refills, Maintenance, 07/01/22 9:02:00 EST, Tablet, [facility]/pharmacy #2071, Partial fill upon patient request [...] EST, Route to Pharmacy Electronically, [facility], 176.4, cm, 05/15/22 11:35:00 EDT, Height Start Date: 06/18/22 Status: Ordered metoprolol succinate 100 mg oral capsule, extended release 1 capsule = 100 mg, By Mouth, Daily, # 30 capsule, 5 Refills, Maintenance, 08/12/22 10:28:00 EST, ER Capsule, [facility]/pharmacy #2071, Partial fill upon patient request [...] Refills, Maintenance, 08/11/22 9:25:00 EST, [facility], 178, cm, 08/07/22 15:14:00 EST, Height, 147, kg, 08/04/2217:07:00 EST, Dry Weight Start Date: 08/11/22 Status: Ordered valsartan 40 mg oral tablet 40 mg, 1, tablet, By Mouth, 2 times a day, # 60 tablet, Refills 0, Tot. Refills 0, Maintenance, 08/07/22 16:11:00 EST, Route to Pharmacy Electronically, [facility], Partial fill upon patient [...] Range]: 1 2 3 Height 178 cm (08/25/22 12:04 PM) 178 cm (08/25/22 11:58 AM) Weight 149.5 kg (08/25/22 12:04 PM) 149.5 kg (08/25/22 11:58 AM) Oxygen Saturation [94-100 %] 96 % (08/25/22 2:30 PM) 97 % (08/25/22 2:21 PM) 96 % (08/25/22 2:00 PM) Pulse Rate [55-90 bpm] 115 bpm *H* (08/25/22 11:45 AM) Blood Pressure [90-138/55-84 mm Hg] 139/104mm Hg *H* (08/25/22 2:21 PM) 150/105mm Hg *H* (08/25/22 1:45 PM) 145/114mm Hg *H* (08/25/22 1:30 PM) Respiratory Rate [16-30 br/min] 20 br/min (08/25/22 11:45 AM) Temperature [96.8-100.4 DegF] 97.8 DegF (08/25/22 11:45 AM) Liters per Minute 4 L/min (08/25/22 2:00 PM) 4 L/min (08/25/22 1:45 PM) Mode of Delivery (Oxygen) Room air (08/25/22 2:30 PM) Room air (08/25/22 2:21 PM) Nasal cannula (08/25/22 2:00 PM) Blood pressure sites Arm, left (08/25/22 1:30 PM) Arm, right (08/25/22 11:58 AM) Arm, left (08/25/22 11:45 AM) Temperature Route Temporal (08/25/22 11:45 AM) Dry Weight 149.5 kg (08/25/22 11:58 AM) Social History Social History Type Response Smoking Status Never smoker entered on: 03/11/17 Sex Hospital Progress note * Mel Choi RN: PERFORM, SIGN, VERIFY Event Display: Progress Note Hospital Authored Date: Patient: LEIDY NGUYEN Age: 61 years Sex: Male : 1960 Associated Diagnoses: None Author: Mel Choi RN Findings patient instructed to continue lasix 80mg daily in which he was taking 40mg daily. patient to follow up with Dr Sosa next week. CBC and electrolytes drawn. I reached out to tamar Valdovinos Belt Loop Machine Operator via cortext about sleep referral, patient has a tele health appointment booked for December. patient expressed that he has a Cpap machine but he hasn't had it checked in awhile or a follow up sleep study in years. * Nara Moreno RN: SIGN, MODIFY, SIGN, MODIFY, PERFORM, SIGN, VERIFY Event Display: Progress Note Hospital Authored Date: Patient: LEIDY NGUYEN Age: 61 years Sex: Male : 1960 Associated Diagnoses: None Author: Nara Moreno RN Findings Narrative/Incidental patient arrived to unit for cardioversion, A&Ox3- took morning meds with small amount of water and denies missed doses of eliquis. EKG confirms in afib, IV to thee R AC. call jordan in reach and ready for procedure. . * Nara Moreno RN: PERFORM Event Display: Progress Note Hospital Authored Date: [id number] patient returned from procedure, A&ox3, VSS. no c/o pain s/p cardioversion. food and drink given. patient aware of plan of care including lasix 80mg po daily. call jordan in reach and being monitored. * Nara Moreno RN: PERFORM Event Display: Progress Note Hospital Authored Date: [id number] patient tolerated food and drink well. denies any pain. feeling well and ready for d/c home. VSS. IV removed. d/c instructions reviewed with patient and verbalizes understanding. dressing self and will be assisted out by via w/c and with all belongings, pt is in stable condition. Note * Nara Moreno RN: PERFORM Event Display: Discharge/Transfer Note Hospital Authored Date: [id number] Nursing Discharge Note Entered On: 08/25/2022 15:43 EST Performed On: 08/25/2022 15:42 EST by Nara Moreno RN Nursing Discharge Note 2 Discharge Time : 08/25/2022 15:42 EST Discharge Level of Care at Discharge : Home/Assisted/Foster Care Patient Left Unit Via : Wheelchair Patient Accompanied Off Unit with : Significant other DC Instructions Provided & Signed by Pt : Yes Patient Understands D/C Instructions : Yes Patient Instructions Discharge Signed : Yes Did Pt have Specialty Bed or Wound Vac : No Nara Moreno RN - 08/25/2022 15:42 EST Patient Care team information Care Team Personnel Name: Brittani Anguiano RN Position: S RN Member Role: Primary Care Nurse Name: Cortez Blunt MD Position: [facility] Primary Care Physician Member Role: PCP Address: Address: [address] [place] [address]- Name: Tamar Kelly RN Position: S RN Member Role: Primary Care Nurse Name: Ron Babb RN Position: S RN Member Role: Primary Care Nurse Care Team Related Persons Name: CECY NGUYEN Address: home [address] [place] [address] Name: LEIDY NGUYEN JR Address: [address] [place] [address]
--- OUTSIDE RECORDS SUMMARY | 2024-05-03 22:13 | XMS_ITS | Continuity of Care Document ---
Author Organization [facility] Address [address] [place] [address] [address], [address] [place] [address]- Care Team Providers Care Fish Icer Name Role Phone Merlene BYRNE, Cortez Kendall Primary Care Physician [phone] Encounter [facility] Date(s): 09/16/23 - 10/16/23 [facility] [address] [place] [address] Drive, [address] [place], [place] [address] Attending Physician: Admtr, Ar8 Admitting Physician: Admtr, Ar8 Referring Physician: Admtr, Ar8 Allergies, Adverse Reactions, Alerts Substance Reaction Severity Status lisinopril cough Active penicillins Rash Active Immunizations Given and Recorded Vaccine Date Status Refusal Reason tetanus/diphtheria/pertussis, acel(Tdap) 1 12/20/17 Given 1Result Comment: [12/20/2017] [facility] 84059-753-59 Medications aspirin 81 mg oral tablet 1 tablet = 81 mg, By Mouth, Daily, # 30 tablet, 0 Refills, Maintenance, 03/11/17 15:49:45, Tablet Start Date: 03/11/17 Status: Ordered doxazosin 4 mg oral tablet 1 tablet, By Mouth, Daily, # 90 tablet, 3 Refills, Maintenance, 07/13/23 5:16:00 EST, [facility], 176.1, cm, 06/25/23 8:54:00 EST, Height, 146.1, kg, 08/29/22 15:57:00 EST, Dry Weight Start Date: 07/13/23 Status: Ordered Eliquis 5 mg oral tablet 1 tablet, By Mouth, 2 times a day, *STOP ASPIRIN*., # 60 tablet, 11 Refills, Maintenance, 07/13/23 5:16:00 EST, [facility], 176.1, cm, 06/25/23 8:54:00 EST, Height, 146.1, kg, 08/29/22 15:57:00 EST, Dry Weight Start Date: 07/13/23 Status: Ordered gabapentin 100 mg oral capsule 2, capsule, By Mouth, Daily at bedtime, # 180 capsule, Refills 1, Maintenance, 10/05/23 12:18:00 EST, Route to Pharmacy Electronically, [facility], 176.1, cm, 09/20/23 14:12:00 EST, Height, 146.1, kg, 08/29/22 15:57:00 EST, Dry Weight Start Date: 10/05/23 Status: Ordered LORazepam 2 mg oral tablet 1 tablet = 2 mg, By Mouth, Once, one hour prior to procedure, # 1 tablet, 0 Refills, Soft Stop, 07/22/23 6:37:00 EST, Tablet, [facility]/pharmacy #2071, Partial fill upon patient request if the prescriptionis for a schedule II opioid drug., 176.1, cm, 06/25... Start Date: 07/22/23 Status: Ordered Metoprolol Succinate ER 100 mg oral tablet, extended release 1 tablet, By Mouth, Daily, # 90 tablet, 3 Refills, Maintenance, 07/09/23 13:03:00 EST, [facility], 176.1, cm, 06/25/23 8:54:00 EST, Height, 146.1, [...] 10/01/23 13:00:00 EST, Route to Pharmacy Electronically, [facility] 04185, 176.1, cm, 09/20/23 14:12:00 EST, Height, 146.1, kg, 08/29/22 15:57:00 EST, Dry Weight Start Date: 10/01/23 Status: Ordered Tadalafil (Eqv-Cialis) 20 mg oral tablet 1 tablet, By Mouth, Daily, PRN NEEDED FOR ERECTILE DYSFUNCTION, # 5 tablet, 2 Refills, Maintenance, 06/13/23 18:58:00 EST, [facility], 176.1, cm, 05/13/23 9:04:00 EDT, Height, 146.1, [...] Refills, Maintenance, 12/17/22 6:36:00 EDT, Tablet, [facility]/pharmacy #2071, Partial fill upon patient request if the prescription is for a schedule II opioid drug., 176.1, cm, 10/21/22 11:09:00 ED... Start Date: 12/17/22 Stop Date: 12/12/23 Status: Ordered valsartan 160 mg oral tablet 160 mg, 1, tablet, By Mouth, 2 times a day, # 180 tablet, Refills 4, Tot. Refills 4, Maintenance, 07/09/23 13:10:00 EST, Route to Pharmacy Electronically, [facility]/pharmacy #2071, Partial fill upon patient [...] Care Nurse Name: Brittani Anguiano RN Position: [facility] SN RN Member Role: Primary Care Nurse Name: Cortez Blunt MD Position: [facility] Physician - Primary Care Member Role: PCP Address: Address: [address] [place] [id number] Name: Ron Babb RN Position: [facility] RN Member Role: Primary Care Nurse Care Team Related Persons Name: CECY NGUYEN Address: home [address] [place] [address] Name: LEIDY NGUYEN JR Address: [address] [place] [address]
--- OUTSIDE RECORDS SUMMARY | 2024-05-03 22:13 | XMS_ITS | Continuity of Care Document ---
Author Organization [facility] Address [address] [place] [address]- Care Team Providers Care Science Teacher Name Role Phone Merlene BYRNE, Cortez Kendall Primary Care Physician [phone] Encounter [facility] Date(s): 09/27/22 - 10/27/22 [facility] [address] [place] [address]- [place] Allergies, Adverse Reactions, Alerts Substance Reaction Severity Status lisinopril Active penicillins Rash Active Immunizations Given and Recorded Vaccine Date Status Refusal Reason tetanus/diphtheria/pertussis, acel(Tdap) 1 12/20/17 Given Not Given Vaccine Date Status Refusal Reason Influenza Virus Vaccine (oldterm) 06/21/19 Not Giv en Patient Refuses 1Result Comment: [12/20/2017] [facility] 25026-262-60 Medications Acetaminophen Daily, 0 Refills, Maintenance, 09/10/22 8:02:00 EST, Partial fill upon patient request if the prescription is for a schedule II opioid drug. Start Date: 09/10/22 Status: Ordered amiodarone 200 mg oral tablet 200 mg, 1, tablet, By Mouth, Daily, # 90 tablet, Refills 0, Tot. Refills 0, Maintenance, 10/06/22 9:50:00 EST, Route to Pharmacy Electronically, [facility]/pharmacy #6018, Partial fill upon patient request if the prescription is for a schedule II opioid drug... Start Date: 10/06/22 Stop Date: 01/04/23 Status: Ordered amLODIPine 10 mg oral tablet 1 tablet, By Mouth, Daily, # 90 tablet, 3 Refills, Maintenance, 09/29/22 6:28:00 EST, [facility], 177.8, cm, 09/10/22 8:00:00 EST, Height, 146.1, [...] 0 Refills, Maintenance, 10/06/22 9:48:00 EST, Tablet, [facility]/pharmacy #2071, Partial fill upon patient request if the prescription is for a schedule II opioid drug., 177.8, cm, 09/10/22 8:00:00 EST, Height,... Start Date: 10/06/22 Status: Ordered doxazosin 4 mg oral tablet 1 tablet, By Mouth, Daily, # 90 tablet, 1 Refills, Maintenance, 07/05/22 16:17:00 EST, [facility]/pharmacy#2071, 178, cm, 07/01/22 7:55:00 EST, Height Start Date: 07/05/22 Status: Ordered Eliquis 5 mg oral tablet 1 tablet = 5 mg, By Mouth, 2 times a day, # 60 tablet, 5 Refills, Maintenance, 07/01/22 9:02:00 EST, Tablet, [facility]/pharmacy #2071, Partial fill upon patient request if the prescription is for a schedule II opioid drug., 178, cm, 07/01/22 7:55:00 EST, He... Start Date: 07/01/22 Status: Ordered gabapentin 100 mg oral capsule 2, capsule, By Mouth, Daily at bedtime, # 60 capsule, Refills 2, Maintenance, 09/28/22 14:04:00 EST, Route to Pharmacy Electronically, [facility]47, 177.8, cm, 09/10/22 8:00:00 EST, Height, 146.1,kg, 08/29/22 15:57:00 EST, Dry Weight Start Date: 09/28/22 Status: Ordered metoprolol succinate 100 mg oral capsule, extended release 1 capsule = 100 mg, By Mouth, Daily, # 30 capsule, 0 Refills, Maintenance, 09/05/22 9:33:00 EST, Johnathon, [facility], Partial fill upon patient request [...] 10/06/22 9:49:00 EST, Route to Pharmacy Electronically, [facility]/pharmacy #2071, Partial fill upon patient request if the prescription is for a schedule II opioid drug.... Start Date: 10/06/22 Stop Date: 01/04/23 Status: Ordered Tadalafil (Eqv-Cialis) 20 mg oral tablet 1 tablet, By Mouth, Daily, PRN NEEDED FOR ERECTILE DYSFUNCTION, # 5 tablet, 2 Refills, Maintenance, 08/11/22 9:25:00 EST, [facility], 178, cm, 08/07/22 15:14:00 EST, Height, 147, kg, 08/04/2217:07:00 EST, Dry Weight Start Date: 08/11/22 Status: Ordered torsemide 20 mg oral tablet 1 tablet = 20 mg, By Mouth, 2 times a day, # 180 tablet, 0 Refills, Maintenance, 10/06/22 9:48:00 EST, Tablet, [facility]/pharmacy #2071, Partial fill upon patient request if the prescription is for a schedule II opioid drug., 177.8, cm, 09/10/22 8:00:00 EST... Start Date: 10/06/22 Stop Date: 01/04/23 Status: Ordered valsartan 160 mg oral tablet 160 mg, 1, tablet, By Mouth, 2 times a day, # 180 tablet, Refills 4, Tot. Refills 4, Maintenance, 10/19/22 13:24:00 EDT, Route to Pharmacy Electronically, [facility]/pharmacy [...] Team Personnel Name: Lázaro Garcia RN Position: [facility] RN Member Role: Primary Care Nurse Name: Alanis Harris Position: [facility] RN Supv Member Role: Primary Care Nurse Name: Brittani Anguiano RN Position: [facility] SN RN Member Role: Primary Care Nurse Name: Cortez Blunt MD Position: [facility] Primary Care Physician Member Role: PCP Address: Address: [address] [place] [address]- Name: Ron Babb RN Position: [facility] RN Member Role: Primary Care Nurse Care Team Related Persons Name: CECY NGUYEN Address: [address] [place] [address] Name: LEIDY NGUYEN JR Address: [address] [place] [address]
--- OUTSIDE RECORDS SUMMARY | 2024-05-03 22:13 | XMS_ITS | Continuity of Care Document ---
Author Organization [facility] Address [address] [place] [address]- Care Team Providers Care Police Patrol Lieutenant Name Role Phone Merlene BYRNE, Cortez Kendall Primary Care Physician Encounter [facility] [place] Date(s): 11/09/22 - 12/09/[address] [place] [address]- Allergies, Adverse Reactions, Alerts Substance Reaction Severity Status lisinopril Active penicillins Rash Active Immunizations Given and Recorded Vaccine Date Status Refusal Reason tetanus/diphtheria/pertussis, acel(Tdap) 1 12/20/17 Given Not Given Vaccine Date Status Refusal Reason Influenza Virus Vaccine (oldterm) 06/21/19 Not Giv en Patient Refuses 1Result Comment: [12/20/2017] [facility] 17722-647-18 Medications Acetaminophen Daily, 0 Refills, Maintenance, 09/10/22 8:02:00 EST, Partial fill upon patient request if the prescription is for a schedule II opioid drug. Start Date: 09/10/22 Status: Ordered amiodarone 200 mg oral tablet 200 mg, 1, tablet, By Mouth, Daily, # 90 tablet, Refills 0, Tot. Refills 0, Maintenance, 10/06/22 9:50:00 EST, Route to Pharmacy Electronically, [facility]/pharmacy #[id number], Partial fill upon patient request if the prescription is for a schedule II opioid drug... Start Date: 10/06/22 Stop Date: 01/04/23 Status: Ordered amLODIPine 10 mg oral tablet 1 tablet, By Mouth, Daily, # 90 tablet, 3 Refills, Maintenance, 09/29/22 6:28:00 EST, [id number], 177.8, cm, 09/10/22 8:00:00 EST, Height, 146.1, [...] Refills, Maintenance, 10/06/22 9:48:00 EST, Tablet, [facility]/pharmacy #[id number], Partial fill upon patient request if the prescription is for a schedule II opioid drug., 177.8, cm, 09/10/22 8:00:00 EST, Height,... Start Date: 10/06/22 Status: Ordered doxazosin 4 mg oral tablet 1 tablet, By Mouth, Daily, # 90 tablet, 1 Refills, Maintenance, 07/05/22 16:17:00 EST, [facility]/pharmacy#[id number], 178, cm, 07/01/22 7:55:00 EST, Height Start Date: 07/05/22 Status: Ordered Eliquis 5 mg oral tablet 1 tablet = 5 mg, By Mouth, 2 times a day, # 60 tablet, 5 Refills, Maintenance, 07/01/22 9:02:00 EST, Tablet, [facility]/pharmacy #[id number], Partial fill upon patient request if the prescription is for a schedule II opioid drug., 178, cm, 07/01/22 7:55:00 EST, He... Start Date: 07/01/22 Status: Ordered gabapentin 100 mg oral capsule 2, capsule, By Mouth, Daily at bedtime, # 60 capsule, Refills 2, Maintenance, 09/28/22 14:04:00 EST, Route to Pharmacy Electronically, [id number], 177.8, cm, 09/10/22 8:00:00 EST, Height, 146.1,kg, 08/29/22 15:57:00 EST, Dry Weight Start Date: 09/28/22 Status: Ordered Metoprolol Succinate ER 100 mg oral tablet, extended release See Instructions, TAKE 1 TABLET BY MOUTH EVERY DAY, # 90 tablet, 1 Refills, Maintenance, 11/09/22 9:12:00 EDT, [facility]/pharmacy #[id number], 176.1, cm, 10/21/22 11:09:00 [...] 11/09/22 9:07:00 EDT, Route to Pharmacy Electronically, [facility]/pharmacy #[id number], 176.1, cm, 10/21/22 11:09:00 EDT, Height, 146.1, kg, 08/29/22 15:57:00 EST, Dry Weight Start Date: 11/09/22 Status: Ordered Tadalafil (Eqv-Cialis) 20 mg oral tablet 1 tablet, By Mouth, Daily, PRN NEEDED FOR ERECTILE DYSFUNCTION, # 5 tablet, 2 Refills, Maintenance, 08/11/22 9:25:00 EST, [facility] ST[facility] [id number], 178, cm, 08/07/22 15:14:00 EST, Height, 147, [...] Refills, Maintenance, 10/06/22 9:48:00 EST, Tablet, [facility]/pharmacy #[id number], Partial fill upon patient request if the prescription is for a schedule II opioid drug., 177.8, cm, 09/10/22 8:00:00 EST... Start Date: 10/06/22 Stop Date: 01/04/23 Status: Ordered valsartan 160 mg oral tablet 160 mg, 1, tablet, By Mouth, 2 times a day, # 180 tablet, Refills 4, Tot. Refills 4, Maintenance, 10/19/22 13:24:00 EDT, Route to Pharmacy Electronically, [facility]/pharmacy #[id number], Partial fill upon patient request if the [...] RN Position: [facility] RN Member Role: Primary Care Nurse Name: Cortez Blunt MD Position: [facility] Primary Care Physician Member Role: PCP Address: Address: [address] [place] [address]- Name: Ron Babb RN Position: S RN Member Role: Primary Care Nurse Care Team Related Persons Name: CECY NGUYEN Address: home [address] [place] [address] Name: LEIDY NGUYEN JR Address: home [address] [place] [address]
--- OUTSIDE RECORDS SUMMARY | 2024-05-03 22:13 | XMS_ITS | Continuity of Care Document ---
Author Organization [facility] Address [address] [place] [address]- Care Team Providers Care Wood Router Hand Name Role Phone Cortez Blunt MD Primary Care Physician Encounter [facility] [place] Date(s): 04/30/23 - 06/12/23 [facility] [address] [place] [address] Attending Physician: Cortez Blunt MD Admitting Physician: Cortez Blunt MD Referring Physician: Bairon Stokes MD Allergies, Adverse Reactions, Alerts Substance Reaction Severity Status lisinopril cough Active penicillins Rash Active Immunizations Given and Recorded Vaccine Date Status Refusal Reason tetanus/diphtheria/pertussis, acel(Tdap) 1 12/20/17 Given 1Result Comment: [12/20/2017] [facility] 23214-717-06 Medications Acetaminophen Daily, 0 Refills, Maintenance, 09/10/22 [...] Refills, Maintenance, 12/17/22 11:10:00 EDT, [facility], 176.1, cm, 10/21/22 11:09:00 EDT, Height, 146.1, kg, 08/29/22 15:57:00 EST, Dry Weight Start Date: 12/17/22 Status: Ordered Eliquis 5 mg oral tablet 1 tablet = 5 mg, By Mouth, 2 times a day, # 60 tablet, 5 Refills, Maintenance, 07/01/22 9:02:00 EST, Tablet, [facility]/pharmacy #[id number], Partial fill upon patient request if the prescription is for a schedule II opioid drug., 178, cm, 07/01/22 7:55:00 EST, He... Start Date: 07/01/22 Status: Ordered gabapentin 100 mg oral capsule 2, capsule, By Mouth, Daily at bedtime, # 180 capsule, Refills 1, Tot. Refills 1, Maintenance, 05/10/23 13:26:00 EDT, Route to Pharmacy Electronically, [facility]/pharmacy #[id number], 176.1, cm, 05/10/23 13:05:00 EDT, Height, 146.1, kg, 08/29/22 15:57:00 EST, Dry... Start Date: 05/10/23 Status: Ordered LORazepam 2 mg oral tablet 1 tablet = 2 mg, By Mouth, Once, one hour prior to procedure, # 1 tablet, 0 Refills, Soft Stop, 06/10/23 5:16:00 EDT, Tablet, [facility]/pharmacy #[id number], Partial fill upon patient request if the prescriptionis for a schedule II opioid drug., 176.1, cm, 05/13... Start Date: 06/10/23 Status: Ordered Metoprolol Succinate ER 100 mg oral tablet, extended release See Instructions, TAKE 1 TABLET BY MOUTH EVERY DAY, # 90 tablet, 1 Refills, Maintenance, 11/09/22 9:12:00 EDT, [facility]/pharmacy #[id number], 176.1, cm, 10/21/22 11:09:00 [...] EDT, Route to Pharmacy Electronically, [facility], 176.1, cm, 12/21/22 16:31:00 EDT, Height, 146.1, kg, 08/29/2314:57:00 EST, Dry Weight Start Date: 02/05/23 Status: Ordered Tadalafil (Eqv-Cialis) 20 mg oral tablet 1 tablet, By Mouth, Daily, PRN NEEDED FOR ERECTILE DYSFUNCTION, # 5 tablet, 1 Refills, Maintenance, 01/25/23 20:35:00 EDT, [facility], 176.1, cm, 12/21/22 16:31:00 EDT, Height, 146.1, [...] 10/19/22 13:24:00 EDT, [facility] [...] Status Never smoker entered on: 03/11/17 Sex History and physical note * Event Display: History and Physical Hospital Authored Date: Patient Care team information Care Team Personnel Name: Alanis Harris Position: S RN Supv Member Role: Primary Care Nurse Name: Brittani Anguiano RN Position: [facility] SN RN Member Role: Primary Care Nurse Name: Cortez Blunt MD Position: S Physician - Primary Care Member Role: PCP Address: Address: [address] [place] [address]- Name: Ron Babb RN Position: S RN Member Role: Primary Care Nurse Care Team Related Persons Name: CECY NGUYEN Address: home [address] [place] [address] Name: LEIDY NGUYEN JR Address: home [address] [place] [address]
--- OUTSIDE RECORDS SUMMARY | 2024-05-03 22:13 | XMS_ITS | Continuity of Care Document ---
Author Organization [facility] Address [address] [place] [address]- Care Team Providers Care Trust Advisor Name Role Phone Cortez Blunt MD Primary Care Physician [phone] [place] [facility] [place](s[place] 05/10/23 - 05/17/23 [facility] Adult [address] [place] [address]- Encounter Diagnosis Progressive focal motor weakness(Discharge Diagnosis) - 05/10/23 Attending Physician: Cortez Blunt MD Allergies, Adverse Reactions, Alerts Substance Reaction Severity Status lisinopril cough Active penicillins Rash Active Immunizations Given and Recorded Vaccine Date Status Refusal Reason tetanus/diphtheria/pertussis, acel(Tdap) 1 12/20/17 Given 1Result Comment: [12/20/2017] [facility] 05493-709-31 Medications Acetaminophen Daily, 0 Refills, Maintenance, 09/10/22 [...] Refills, Maintenance, 12/17/22 11:10:00 EDT, [facility], 176.1, cm, 10/21/22 11:09:00 EDT, Height, 146.1, kg, 08/29/22 15:57:00 EST, Dry Weight Start Date: 12/17/22 Status: Ordered Eliquis 5 mg oral tablet 1 tablet = 5 mg, By Mouth, 2 times a day, # 60 tablet, 5 Refills, Maintenance, 07/01/22 9:02:00 EST, [id number] Partial fill upon patient request if the prescription is for a schedule II opioid drug., 178, cm, 07/01/22 7:55:00 EST, He... Start Date: 07/01/22 Status: Ordered gabapentin 100 mg oral capsule 2, capsule, By Mouth, Daily at bedtime, # 180 capsule, Refills 1, Tot. Refills 1, Maintenance, 05/10/23 13:26:00 EDT, Route to Pharmacy Electronically, [facility]/pharmacy #[id number], 176.1, cm, 05/10/23 13:05:00 EDT, Height, 146.1, kg, 08/29/22 15:57:00 EST, Dry... Start Date: 05/10/23 Status: Ordered LORazepam 2 mg oral tablet 1 tablet = 2 mg, By Mouth, Once, one hour prior to procedure, # 1 tablet, 0 Refills, Soft Stop, 05/17/23 4:44:00 EDT, Tablet, [facility]/pharmacy #[id number], Partial fill upon patient request if the prescriptionis for a schedule II opioid drug., 176.1, cm, 05/13... Start Date: 05/17/23 Status: Ordered Metoprolol Succinate ER 100 mg oral tablet, extended release See Instructions, TAKE 1 TABLET BY MOUTH EVERY DAY, # 90 tablet, 1 Refills, Maintenance, 11/09/22 9:12:00 EDT, [facility]/pharmacy #[id number], 176.1, cm, 10/21/22 11:09:00 [...] EDT, Route to Pharmacy Electronically, [facility], 176.1, cm, 12/21/22 16:31:00 EDT, Height, 146.1, kg, 08/29/2314:57:00 EST, Dry Weight Start Date: 02/05/23 Status: Ordered Tadalafil (Eqv-Cialis) 20 mg oral tablet 1 tablet, By Mouth, Daily, PRN NEEDED FOR ERECTILE DYSFUNCTION, # 5 tablet, 1 Refills, Maintenance, 01/25/23 20:35:00 EDT, [facility], 176.1, cm, 12/21/22 16:31:00 EDT, Height, 146.1, [...] 3 Refills, Maintenance, 12/17/22 6:36:00 EDT, Tablet, [facility]/pharmacy #[id number], Partial fill upon patient request if the prescription is for a schedule II opioid drug., 176.1, cm, 10/21/22 11:09:00 ED... Start Date: 12/17/22 Stop Date: 12/12/23 Status: Ordered valsartan 160 mg oral tablet 160 mg, 1, tablet, By Mouth, 2 times a day, # 180 tablet, Refills 4, Tot. Refills 4, Maintenance, 10/19/22 13:24:00 EDT, Route to Pharmacy Electronically, [facility]/pharmacy #[id number], Partial fill upon patient [...] Effective Dates Health Status Clinical Service Informant Progressive focal motor weakness Discharge Diagnosis 05/10/23 Vital Signs Most recent to oldest [Reference Range]: 1 2 Height 176.1 cm (05/10/23 3:27 PM) 176.1 cm (05/10/23 1:05 PM) Weight 155.6 kg (05/10/23 1:05 PM) Oxygen Saturation [94-100 %] 98 % (05/10/23 1:05 PM) Pulse Rate [55-90 bpm] 62 bpm (05/10/23 1:05 PM) Body Mass Index [18.5-24.99 kg/m2] 50.18 kg/m2 *>HHI* (05/10/23 1:05 PM) Blood Pressure [90-138/55-84 mm Hg] 148/ 65mm Hg *H* (05/10/23 3:27 PM) 112/67mm Hg (05/10/23 1:05 PM) Mode of Delivery (Oxygen) Room air (05/10/23 1:05 PM) Blood pressure sites Arm, left (05/10/23 3:27 PM) Arm, left (05/10/23 1:05 PM) Weight Obtained Via Standing scale (05/10/23 1:05 PM) Social History Social History Type Response Smoking Status Never smoker entered on: 03/11/17 Sex Patient Care team information Care Team Personnel Name: Alanis Harris Position: [facility] Supv Member Role: Primary Care Nurse Name: Brittani Anguiano RN Position: [facility] RN Member Role: Primary Care Nurse Name: Cortez Blunt MD Position: [facility] Physician - Primary Care Member Role: PCP Address: Address: [address] [place] [address]- [place] Name: Ron Babb RN Position: S RN Member Role: Primary Care Nurse Care Team Related Persons Name: CECY NGUYEN Address: home [address] [place] [address] Name: LEIDY NGUYEN JR Address: [address] [place] [address]
--- OUTSIDE RECORDS SUMMARY | 2024-05-03 22:13 | XMS_ITS | Continuity of Care Document ---
Author Organization [facility] Address [address] [place] [address]- Care Team Providers Care Sash Assembler Name Role Phone Merlene BYRNE, Cortez Kendall Primary Care Physician [phone] [place] [facility] [place] Date(s[place] 04/08/21 - 05/08/21 [facility] Adult [address] [place] [address]- Allergies, Adverse Reactions, Alerts Substance Reaction Severity Status lisinopril Active penicillins Rash Active Immunizations Given and Recorded Vaccine Date Status Refusal Reason tetanus/diphtheria/pertussis, acel(Tdap) 1 12/20/17 Given Not Given Vaccine Date Status Refusal Reason Influenza Virus Vaccine (oldterm) 06/21/19 Not Giv en Patient Refuses 1Result Comment: [12/20/2017] [facility] 60937-104-58 Medications amLODIPine 10 mg oral tablet 1 tablet, By Mouth, Daily, # 30 tablet, 5 Refills, Maintenance, 01/29/21 8:22:00 EDT, [facility], 176.4, cm, 12/25/20 7:05:00 EDT, Height Start [...] 0 Refills, Soft Stop, 04/07/21 8:04:00 EDT, [facility]/pharmacy #[id number], Partial fill upon patient request if the prescription is for aschedule II opioid drug., 176.4, cm, 04/07/21 7:14:... Start Date: 04/07/21 Status: Ordered Cialis 20 mg oral tablet 1 tablet = 20 mg, By Mouth, Daily, PRN as needed for erectile dysfunction, # 5 tablet, 5 Refills, Maintenance, 12/25/20 8:45:00 EDT, Tablet, [facility]/pharmacy #[id number], Partial fill upon patient request if the prescription is for a schedule II opioid drug., 1... Start Date: 12/25/20 Status: Ordered doxazosin 4 mg oral tablet 1 tablet, By Mouth, Daily, # 30 tablet, 5 Refills, Maintenance, 12/31/20 17:04:00 EDT, [facility], 176.4, cm, 12/25/20 7:05:00 EDT, Height Start Date: 12/31/20 Status: Ordered gabapentin 100 mg oral capsule 1, capsule, By Mouth, Daily at bedtime, # 30 capsule, Refills 2, Tot. Refills 0, Maintenance, 02/27/21 17:42:00 EDT, Route to Pharmacy Electronically, [facility], 176.4, cm, 12/25/20 7:05:00 EDT, Height Start Date: 02/27/21 Status: Ordered irbesartan 150 mg oral tablet 1 tablet, By Mouth, Daily, # 30 tablet, 5 Refills, Maintenance, 01/15/21 13:26:00 EDT, [facility]/pharmacy#[id number], 176.4, cm, 12/25/20 7:05:00 EDT, Height [...]
--- OUTSIDE RECORDS SUMMARY | 2024-05-03 22:13 | XMS_ITS | Continuity of Care Document ---
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 metoprolol ?? JR (obstructive sleep apnea) (G47.33): -CPAP ordered, EPAP 13 per pt ?? Chronic GERD (K21.9): continue PPI daily ?? Disposition Home patient will follow-up with Dr. Leblanc??ordered??[facility] level to be followed up as an outpatient. ?? Discharge Planning:? Vital Signs?? Temperature: 97.5 DegF (12/01/23 10:48:00) Temperature Route: Oral (12/01/23 10:48:00) Pulse Rate: 56 bpm (12/01/23 10:48:00) Respiratory Rate: 18 br/min (12/01/23 10:55:00) Systolic Blood Pressure:??142 mm Hg??High (12/01/23 10:48:00) Diastolic Blood Pressure: 75 mm Hg (12/01/23 10:48:00) Blood pressure sites: Arm, left (12/01/23 10:48:00) Mean Arterial Pressure: 97 mm Hg (12/01/23 10:48:00) Pulse Pressure: 67 mm Hg (12/01/23 10:48:00) Oxygen Saturation: 99 % (12/01/23 10:48:00) Mode of Delivery (Oxygen): Room air (12/01/23 10:48:00) Early Warning Score: 2 (12/01/23 10:57:57) ? . Physical Exam General: [Alert, in no acute cardiopulmonary distress.] Mental Status: [Oriented to person, place and time. Normal affect.] Head: [Normocephalic.] Eyes: [Pupils are equal, round and reactive to light. Extraocular muscles intact.] Ear, Nose and Throat: [Oropharynx clear, mucous membranes moist. Ears and nose without masses, lesions or deformities. Tympanic membranes clear bilaterally. Trachea midline.] Neck: [Supple, Full range of motion.] Respiratory: [Clear to auscultation and percussion. No wheezing, rales or rhonchi.] Cardiovascular: [Heart sounds normal. No thrills. Regular rate and rhythm, no murmurs, rubs or gallops.] Gastrointestinal: [Abdomen soft, non-tender, non-distended. Normal bowel sounds. No pulsatile mass.No hepatosplenomegaly.] Genitourinary: [No costovertebral angle tenderness.] Neurologic: [Cranial nerves II-XII grossly intact. No focal neurological deficits. Skin: [No rashes or lesions. No petechiae or purpura. No edema.] Musculoskeletal: [No cyanosis or clubbing. No gross deformities. Normal range of motion.] Lymphatics: [Palpation of neck reveals no swelling or tenderness of neck nodes. Palpation of groin reveals no swelling or tenderness of groin nodes.] Psychiatric: [Not anxious fully cooperative following commands.] Pending Results Hold Lavender Tube (BB) ordered on 11/30/2023 Follow-Up Appointments Added Follow Up ?Time Frame ?Comments Cristobal Leblanc MD?1 week Merlene BYRNE, Cortez Kendall?1 week Home Health Face to Face ^[facility] Results Discharge Labs BLOOD COUNT & DIFF WBC 6.9 k/mm3 ()?? 11/30/2023 12:16 RBC 4.32 m/mm3 (Low)?? 11/30/2023 12:16 Hgb 13.6 Gm/dL (Low)?? 11/30/2023 12:16 Hct 39.7 % (Low)?? 11/30/2023 12:16 MCV 91.9 femtoliters ()?? 11/30/2023 12:16 MCH 31.5 pg ()?? 11/30/2023 12:16 MCHC 34.3 g/dL ()?? 11/30/2023 12:16 Platelet Count 155 k/mm3 ()?? 11/30/2023 12:16 RDW-SD 44.8 femtoliters ()?? 11/30/2023 12:16 MPV 10.2 femtoliters ()?? 11/30/2023 12:16 Nucleated RBC (Automated) 0.0 #/100 WBC'S ()?? 11/30/2023 12:16 Abs. NRBC 0.0 k/mm3 ()?? 11/30/2023 12:16 Abs. Neut 5.2 k/mm3 ()?? 11/30/2023 12:16 Abs. Lymph 0.8 k/mm3 ()?? 11/30/2023 12:16 Abs. Wood 0.6 k/mm3 ()?? 11/30/2023 12:16 Abs. Eo 0.2 k/mm3 ()?? 11/30/2023 12:16 Abs. Baso 0.0 k/mm3 ()?? 11/30/2023 12:16 Neut % 76.2 % (High)?? 11/30/2023 12:16 Lymph % 11.8 % (Low)?? 11/30/2023 12:16 Wood % 8.0 % ()?? 11/30/2023 12:16 Eos % 2.9 % ()?? 11/30/2023 12:16 Baso % 0.4 % ()?? 11/30/2023 12:16 Imm Gran 0.7 % ()?? 11/30/2023 12:16 Abs. Imm Gran 0.1 k/mm3 ()?? 11/30/2023 12:16 ?? CARDIAC High Sensitivity Troponin (HSTnT) 10 ng/L ()?? 11/30/2023 21:50 ? CHEM GENERAL Sodium 142 mmol/L ()?? 11/30/2023 12:16 Potassium 4.1 mmol/L ()?? 11/30/2023 12:16 Chloride 102 mmol/L ()?? 11/30/2023 12:16 Bicarbonate Level 27 mmol/L ()?? 11/30/2023 12:16 Anion Gap 13 ()?? 11/30/2023 12:16 Glucose Level 114 mg/dL (High)?? 11/30/2023 12:16 Hemoglobin A1C (Monitoring) 5.4 % ()?? 11/30/2023 12:16 BUN 21 mg/dL ()?? 11/30/2023 12:16 Creatinine-Blood 1.1 mg/dL ()?? 11/30/2023 12:16 Estimated GFR Creatinine 75 ML/MIN/1.73 M2 ()?? 11/30/2023 12:16 Calcium 9.2 mg/dL ()?? 11/30/2023 12:16 AST (SGOT) 24 units/L ()?? 11/30/2023 12:16 ?? COAG INR 1.0 ()?? 11/30/2023 12:16 Protime (PT) 10.9 seconds ()?? 11/30/2023 12:16 APTT 26.5 seconds ()?? 11/30/2023 12:16 ? LIPID STUDIES Cholesterol 193 mg/dL ()?? 11/30/2023 12:16 Triglycerides 271 mg/dL (High)?? 11/30/2023 12:16 HDL Cholesterol 41 mg/dL ()?? 11/30/2023 12:16 LDL Cholesterol 98 mg/dL ()?? 11/30/2023 12:16 Non HDL Cholesterol 152 mg/dL ()?? 11/30/2023 12:16 ? URINE OTHER Est Creatinine Clearance 71.15 mL/min ()?? 11/30/2023 13:25 ? VIROLOGY COVID-19 by RT-PCR NEGATIVE ()?? 11/30/2023 12:22 ? Microbiology ?? COVID-19 (Novel Coronavirus), Rapid PCR?? Completed?? Source: Nasal Body Site: Nose Collected Dt/Tm: 11/30/2023 12:11 Last Updated Dt/Tm: 11/30/2023 13:27 ? 25minutes spent on discharge * Maddie MCFARLANE, Godwin: PERFORM Event Display: Patient Education/Instruction Authored Date: [id number] Inpatient Adult Discharge Instructions. [address] [address] Name: LEIDY GAMBINO : 1960?? Visit: 11/30/2023 11:31?? Current Date: 12/01/2023 15:22 ?? Account: [id number]?? Inpatient Adult Discharge Instructions We would like [...] and their families. Surveys are administered by [employer]. ?? If further treatment with your primary care physician or another doctor is recommended, it is important for you to keep the appointment. Call your primary care physician or return to the Emergency Department immediately if your condition worsens, fails to improve, or new symptoms develop. If you need to find a doctor, you can call [facility] [employer] Link for a referral at [phone] or toll free at [phone]) or log in to [email or web address] Reach.. ?? [facility], in keeping with [facility] guidance, no longer requires face masks for staff, patientsor visitors in most situations. Similiar to time spent indoors at other locations, there is the chance that you were exposed to repiratory viruses during your time with us (such as flu or COVID-19). If you develop symptoms concerning for a viral respiratory infection, please seek testing (and treatment if indicated) from your medical provider or home test kit. ?? You can view and manage your care through the patient portal or by using a health care nidia of your choosing. [employer] is a website that allows you to securely view your medical information including your hospital discharge summary, office visit summaries, medications and follow-up visits. You can also request appointments, renew medications, and request access to your medical information using a health care nidia of your choosing, or just ask a question. You can enroll at [email or web address] or register during your next office visit. You have been discharged from [facility], Patient Care Unit: D3B??. If you have any questions regarding these instructions, including results of studies pending, afteryou leave, please call us and we will be happy to assist you 01/03. [facility] Your Care Team Attending Physician Barb Renteria MD?? Consulting Providers Barb Renteria MD?? Reason for Your Visit TIA eval?? Your Diagnosis Difficulty with speech Heart failure with preserved ejection fraction Benign essential hypertension JR (obstructive sleep apnea) S/P ablation of atrial fibrillation Chronic GERD General medical Peripheral neuropathy Tests Performed Below is a partial list of the tests performed during your hospitalization. You may have had other tests and procedures not included in this list. Please discuss all test results with your provider. AST Basic Metabolic Panel CBC w/ Differential COVID-19 (Novel Coronavirus), Rapid PCR Hemoglobin A1c, (Diagnostic) High??Sensitivity??Troponin T Lipid Panel PT (INR) PTT Brain MRI W+W/O Contrast CT Angio Head CT Angio Neck CT Head/Brain W/O Contrast Hold Lavender Tube (BB)?? Primary Care Provider Cortez Blunt MD? Advance Directive Health Care Proxy on File Yes - Health Care Proxy Discharge Vitals Temperature: 98 DegF Height: 178 cm Pulse Rate: 64 bpm Weight: 159 kg Respiratory Rate: 20 br/min Body Mass Index:??50.18 kg/m2??Critical Systolic Blood Pressure: 101 mm Hg Body surface area: 2.8 Diastolic Blood Pressure:??44 mm Hg??Low ?? Oxygen Saturation: 98 % ?? Studies Pending All studies ordered during this hospital stay have been completed unless listed below. Please discuss all pending results with your provider listed above in these instructions. ?? Hold Lavender Tube (BB)?? What to do next Instructions From Your Doctor ?? Orders?? Scheduled Follow-Up Appointments 2023 12:30 PM EDT ?? With: Leydi Chapman DO Where[facility] [address] [place] [id number]- Status: Pending You Need to Schedule the Following Appointments Follow Up with??Cristobal Leblanc MD When:??Within 1 week Follow Up with??Cortez Blnut MD When:??Within 1 week Discharge Medications WENDYLEIDY :1960 Visit Date:11/30/2023 Medications: Please continue your medications until treatment is completed or stopped by your provider. Medications not listed below should be discontinued. Discuss any questions related to medications with your provider. What How Much When Instructions Next Dose New levETIRAcetam (Keppra 750 mg oral tablet) 1 tab(s) Oral Twice a day Duration: 30 Days Pickup at [facility]/pharmacy #[id number] 12/01 Unchanged apixaban (Eliquis 5 mg oral tablet) 1 tab(s) Oral Twice a day *STOP ASPIRIN*. ?? 12/01 Unchanged Aspirin (aspirin 81 mg oral tablet) 1 tab(s) Oral Daily discontinue Unchanged Doxazosin (doxazosin 4 mg oral tablet) 1 tab(s) Oral Daily 12/01 Unchanged Gabapentin (gabapentin 100 mg oral capsule) 2 capsule Oral Daily at Bedtime 11/30 Unchanged Metoprolol (Metoprolol Succinate ER 100 mg oral tablet, extended release) 1 tab(s) Oral Daily 12/01 Unchanged Miscellaneous Rx (TADALAFIL 20 MG TABLET) 1 tab(s) Oral Daily as needed for NEEDED FOR ERECTILE DYSFUNCTION as prescribed Unchanged Omeprazole (omeprazole 20 mg oral enteric coated capsule) 1 capsule Oral Daily (buys OTC) ?? 12/01 Unchanged Spironolactone (spironolactone 25 mg oral tablet) 1 tab(s) Oral Daily 12/01 Unchanged tadalafil (Tadalafil (Eqv-Cialis) 20 mg oral tablet) 1 tab(s) Oral Daily as needed for NEEDED FOR ERECTILE DYSFUNCTION as prescribed Unchanged torsemide (torsemide 20 mg oral tablet) 1 tab(s) Oral Twice a day 11/30 evening dose Unchanged Valsartan (valsartan 160 mg oral tablet) 1 tab(s) Oral Twice a day Duration: 90 Days 11/30 evening dose Pharmacy Information [facility]/pharmacy #[id number]: [address], [place] [id number] [phone] Prescription Given During Visit levETIRAcetam (Keppra 750 mg oral tablet) - 1 tablet = 750 mg, By Mouth, 2 times a day, # 60 tablet, 0 Refills, [facility]/pharmacy #[id number], [address] [place] [phone]?? Laboratory Results Below is a partial list of the most recent Laboratory test results done prior to this discharge. You may have had other tests and procedures not included in this list. Please discuss all test resultswith your provider. Est Creatinine Clearance - 71.15 mL/min (11/30/2023) AST (11/30/2023) ???AST (SGOT) - 24 units/L Basic Metabolic Panel (11/30/2023) ???Sodium - 142 mmol/L???Potassium - 4.1 mmol/L???Chloride - 102 mmol/L???Bicarbonate Level - 27 mmol/L???Anion Gap - 13???Glucose Level - 114 mg/dL???BUN - 21 mg/dL???Creatinine-Blood - 1.1 mg/dL???Estimated GFR Creatinine - 75 ML/MIN/1.73 M2???Calcium - 9.2 mg/dL CBC w/ Differential (11/30/2023) ???WBC - 6.9 k/mm3???RBC - 4.32 m/mm3???Hgb - 13.6 Gm/dL???Hct - 39.7 %???MCV - 91.9 femtoliters???MCH - 31.5 pg???MCHC - 34.3 g/dL???Platelet Count - 155 k/mm3???RDW-SD - 44.8 femtoliters???MPV - 10.2 femtoliters???Nucleated RBC (Automated) - 0.0 #/100 WBC'S???Abs. NRBC - 0.0 k/mm3???Abs. Neut - 5.2 k/mm3???Abs. Lymph - 0.8 k/mm3???Abs. Wood - 0.6 k/mm3???Abs. Eo - 0.2 k/mm3???Abs. Baso - 0.0 k/mm3???Neut % - 76.2 %???Lymph % - 11.8 %???Wood % - 8.0 %???Eos % - 2.9 %???Baso % - 0.4 %???Imm Gran - 0.7 %???Abs. Imm Gran - 0.1 k/mm3 COVID-19 (Novel Coronavirus), Rapid PCR (11/30/2023) ???COVID-19 by RT-PCR - NEGATIVE Hemoglobin A1c, (Diagnostic) (11/30/2023) ???Hemoglobin A1C (Monitoring) - 5.4 % High??Sensitivity??Troponin T (11/30/2023) ???High Sensitivity Troponin (HSTnT) - 10 ng/L Lipid Panel (11/30/2023) ???Cholesterol - 193 mg/dL???Triglycerides - 271 mg/dL???HDL Cholesterol - 41 mg/dL???LDL Cholesterol - 98 mg/dL???Non HDL Cholesterol - 152 mg/dL PT (INR) (11/30/2023) ???INR - 1.0???Protime (PT) - 10.9 seconds PTT (11/30/2023) ???APTT - 26.5 seconds Allergies (NKA means No Known Allergies) lisinopril??(cough) penicillins??(Rash) Problems Active Problems??(14) Atrial flutter?? Benign essential hypertension?? Bilateral knee pain?? Diverticulosis?? Heart failure with preserved ejection fraction?? Hemorrhoids?? Hypertension?? Migraine?? Nonischemic cardiomyopathy?? Obesity?? JR (obstructive sleep apnea)?? Paresthesia of left lower extremity?? Severe obesity?? Sleep related hypoventilation/hypoxemia in other disease?? Education Materials Below is the list of Educational Leaflet Providered with your Discharge Instructions. Valuables and Belongings I fully understand and agree that [facility] accepts no responsibility for all my personal [...] patient Date for Pt to Sign Valuables/Belongings: 11/30/23 12:43:00 ?? Other Discharge Information ? Pulmonary Rehab Status?? Pulmonary Rehab Discharge Status?? Respiratory Rate: 20 br/min ? Common Emergency Awareness Tips IS [...] are strongly encouraged to quit. Please call [facility] [employer] Link at [phone] or [phone] ([phone]) or log in to [email or web address] for referrals to smoking cessation programs. ?? 079 Suicide & Crisis Lifeline is available 01/03 if you or someone you know needs to find a reason to keep living. By calling 440 you'll be connected to a skilled, trained counselor at a crisis center in your area. INPATIENT DISCHARGE INSTRUCTIONS SIGNATURE PAGE LEIDY GAMBINO Location:[facility] Registration Date and Time:11/30/2023 11:31 EDT Primary Care Physician: Cortez Blunt MD, Attending Physician: Barb Renteria MD, I LEIDY GAMBINO, have received the above patient education materials/instructions and have verbalized understanding. If ambulance or transport services are being used I further acknowledge being given a choice of service. ?? If you need to contact me, please call me at this number: . Patient/Well Tender Name: Patient/Well Tender Signature: Relationship to Patient: Witness Name/Signature: Date: * Godwin Perkins RN: PERFORM Event Display: Patient Education Leaflets Authored Date: [id number] Levetiracetam Oral Tablet ?? [id number] Levetiracetam Oral Tablet Brands: [employer] Uses For seizures. ?? Instructions Swallow the medicine without crushing or chewing it. This medicine may be taken with or without food. This medicine will work best if you take it at about the same time every day. Keep the medicine at room temperature. Avoid heat and direct light. It is important that you keep taking each dose of this medicine on time even if you are feeling well. If you forget to take a dose on time, take it as soon as you remember. If it is almost time for thenext dose, do not take the missed dose. Return to your normal schedule. Do not take 2 doses at one time. Drug interactions can change how medicines work or increase risk for side effects. Tell your healthcare providers about all medicines taken. Include prescription and [id number] medicines, vitamins, and herbal medicines. Speak with your doctor or pharmacist before starting or stopping any medicine. Contact your doctor if your seizures do not improve or worsen while on this medicine. If you need to stop this medicine, your doctor may wish to gradually reduce the dosage before stopping. Keep all appointments for medical [...] before drinking alcohol while on this medicine. Family should check on the patient often. Call the doctor if patient becomes more depressed, has thoughts of suicide, or shows changes in behavior. Tell the doctor or pharmacist if you are , planning to be , or . Always carry an ID card or wear a medical alert bracelet indicating your medical condition. Do not share this medicine with anyone [...] these or other side effects. ??? dizziness or drowsiness ??? lack of energy and tiredness ??? weakness Call your doctor or get medical help right away if you notice any of these more serious side effects: ??? agitated feeling or trouble sleeping ??? bleeding or bruising ??? confusion ??? depression or feeling sad ??? fever ??? rapid heartbeat ??? mood changes ??? pale or blue skin, lips or fingernails??? rapid breathing ??? suicidal thoughts ??? swelling in the neck or throat ??? unsteadiness whilewalking A few people may have an allergic reaction to this medicine. Symptoms can include difficulty breathing, skin rash, itching, swelling, or severe dizziness. If you notice any of these symptoms, seek medical help quickly. ?? Extra Please speak with your doctor, nurse, or pharmacist if you have any questions about this medicine. ?? [email or web address] IMPORTANT NOTE: This document tells you briefly how to take your medicine, but it does not tell youall there is to know about it. Your doctor or pharmacist may give you other documents about your medicine. Please talk to them if you have any questions. Always follow their advice. There is a more complete description of this medicine available in [place]. Scan this code on your smartphone or tablet or use the web address below. You can also ask your pharmacist for a printout. If you have any questions, please ask your pharmacist. The display and use of this drug information is subject to Terms of Use. Copyright(c) 2023 [employer]. ?? The mAPPn. All rights reserved. This information is not intended as a substitute for professional medical care. Always follow your healthcare professional's instructions. ?? Patient Care team information Care Team Personnel Name: Alanis Harris Position: [facility] RN Supv Member Role: Primary Care Nurse Name: Brittani Anguiano RN Position: [facility] RN Member Role: Primary Care Nurse Name: Sherrell Yan RN Position: S RN Member Role: Primary Care Nurse Name: Cortez Blunt MD Position: [facility] Physician - Primary Care Member Role: PCP Address: Address: [address] [place] [id number]- Name: Godwin Perkins RN Position: S RN Member Role: Primary Care Nurse Name: Ron Babb RN Position: S RN Member Role: Primary Care Nurse Care Team Related Persons Name: CECY GAMBINO Address: home [address] [place] [address] Name: LEIDY GAMBINO JR Address: home [address] [place] [address]
--- OUTSIDE RECORDS SUMMARY | 2024-05-03 22:14 | XMS_ITS | Continuity of Care Document ---
Author Organization [facility] [place] Address [address] [place] [address]- Care Team Providers Care Novelty Twister Operator Name Role Phone Merlene BYRNE, Cortez Kendall Primary Care Physician Encounter [facility] Date(s): 07/11/23 - 08/10/23 [facility] [place] [address] [place] [address]- Allergies, Adverse Reactions, Alerts Substance Reaction Severity Status lisinopril cough Active penicillins Rash Active Immunizations Given and Recorded Vaccine Date Status Refusal Reason tetanus/diphtheria/pertussis, acel(Tdap) 1 12/20/17 Given 1Result Comment: [12/20/2017] [facility] [id number] Medications Acetaminophen Daily, 0 Refills, Maintenance, 09/10/22 [...] tablet, 3 Refills, Maintenance, 07/13/23 5:16:00 EST, [facility] [address]336, 176.1, cm, 06/25/23 8:54:00 EST, Height, 146.1, kg, 08/29/22 15:57:00 EST, Dry Weight Start Date: 07/13/23 Status: Ordered Eliquis 5 mg oral tablet 1 tablet, By Mouth, 2 times a day, *STOP ASPIRIN*., # 60 tablet, 11 Refills, Maintenance, 07/13/23 5:16:00 EST, [facility], 176.1, cm, 06/25/23 8:54:00 EST, Height, 146.1, kg, 08/29/22 15:57:00 EST, Dry Weight Start Date: 07/13/23 Status: Ordered Farxiga 10 mg oral tablet 1 tablet = 10 mg, By Mouth, Daily, # 90 tablet, 4 Refills, Maintenance, 06/25/23 9:09:00 EST, Tablet, [facility]/pharmacy [...] 05/10/23 13:26:00 EDT, Route to Pharmacy Electronically, [facility]/pharmacy #[id number], 176.1, cm, 05/10/23 13:05:00 EDT, Height, 146.1, kg, 08/29/22 15:57:00 EST, Dry... Start Date: 05/10/23 Status: Ordered LORazepam 2 mg oral tablet 1 tablet = 2 mg, By Mouth, Once, one hour prior to procedure, # 1 tablet, 0 Refills, Soft Stop, 07/22/23 6:37:00 EST, Tablet, [facility]/pharmacy #[id number], Partial fill upon patient request if the prescriptionis for a schedule II opioid drug., 176.1, cm, 06/25... Start Date: 07/22/23 Status: Ordered Metoprolol Succinate ER 100 mg oral tablet, extended release 1 tablet, By Mouth, Daily, # 90 tablet, 3 Refills, Maintenance, 07/09/23 13:03:00 EST, [facility]82, 176.1, cm, 06/25/23 8:54:00 EST, Height, 146.1, [...] 06/14/23 8:05:00 EST, Route to Pharmacy Electronically, [facility] STORE [address]8311, 176.1, cm, 05/13/23 9:04:00 EDT, Height, 146.1, kg, 08/29/22 15:57:00 EST, Dry Weight Start Date: 06/14/23 Status: Ordered Tadalafil (Eqv-Cialis) 20 mg oral tablet 1 tablet, By Mouth, Daily, PRN NEEDED FOR ERECTILE DYSFUNCTION, # 5 tablet, 2 Refills, Maintenance, 06/13/23 18:58:00 EST, [facility]2981, 176.1, cm, 05/13/23 9:04:00 EDT, Height, 146.1, [...] 3 Refills, Maintenance, 12/17/22 6:36:00 EDT, Tablet, [facility]/pharmacy #[id number], [...] 07/09/23 13:10:00 EST, Route to Pharmacy Electronically, [facility]/pharmacy #[id number], Partial fill upon patient request if the [...] Care Team Personnel Name: Alanis Harris Position: [facility] RN Supv Member Role: Primary Care Nurse Name: Brittani Anguiano RN Position: [facility] RN Member Role: Primary Care Nurse Name: Cortez Blunt MD Position: [facility] Physician - Primary Care Member Role: PCP Address: Address: [address] [place] [id number]- Name: Ron Babb RN Position: [facility] RN Member Role: Primary Care Nurse Care Team Related Persons Name: CECY NGUYEN Address: home [address] [place] [address] Name: LEIDY NGUYEN JR Address: home [address] [place] [address]
--- OUTSIDE RECORDS SUMMARY | 2024-05-03 22:14 | XMS_ITS | Continuity of Care Document ---
Author Organization [facility] Kevin Darrell Address [address] [place] [address]- Care Team Providers Care Director Of Provider Relations Name Role Phone Merlene BYRNE, Cortez Kendall Primary Care Physician [phone] Encounter [facility] Date(s): 02/19/22 - 03/21/22 [facility] Adult [address] [place] [address]- Allergies, Adverse Reactions, Alerts Substance Reaction Severity Status lisinopril Active penicillins Rash Active Immunizations Given and Recorded Vaccine Date Status Refusal Reason tetanus/diphtheria/pertussis, acel(Tdap) 1 12/20/17 Given Not Given Vaccine Date Status Refusal Reason Influenza Virus Vaccine (oldterm) 06/21/19 Not Giv en Patient Refuses 1Result Comment: [12/20/2017] [facility] 12569-125-81 Medications amLODIPine 10 mg oral tablet 1 tablet, By Mouth, Daily, # 90 tablet, 1 Refills, [facility] STORE 71176, 176.4, cm, 08/15/21 9:23:00 EST, Height Start Date: 10/13/21 Status: Ordered aspirin 81 mg oral tablet 1 tablet = 81 mg, By Mouth, Daily, # 30 tablet, 0 Refills, Maintenance, 03/11/17 15:49:45, Tablet Start Date: 03/11/17 Status: Ordered doxazosin 4 mg oral tablet 1 tablet, By Mouth, Daily, # 90 tablet, 1 Refills, [facility], 176.4, cm, 08/15/21 9:23:00 EST, Height Start Date: 01/17/22 Status: Ordered gabapentin 100 mg oral capsule 2, capsule, By Mouth, Daily at bedtime, # 60 capsule, Refills 2, Route to [facility] Electronically, [facility], 176.4, cm, 02/02/22 11:18:00 EDT, Height Start Date: 02/26/22 Status: Ordered Tadalafil (Eqv-Cialis) 20 mg oral tablet 1 tablet, By Mouth, Daily, PRN NEEDED FOR ERECTILE DYSFUNCTION, # 5 tablet, 2 Refills, [id number], 176.4, cm, 02/02/22 11:18:00 EDT, Height Start Date: 02/04/22 Status: Ordered Problem List Condition Effective Dates Status Health Status Inform ant Benign essential hypertension(Confirmed) Active Sleep related hypoventilation/hypoxemia in other disease(Confirmed) Active Diverticulosis(Confirmed) 1 Active Hemorrhoids(Confirmed) Active Bilateral knee pain(Confirmed) Active Migraine(Confirmed) Active Obesity(Confirmed) Active JR (obstructive sleep apnea)(Confirmed) Active Severe obesity(Confirmed) Active 1PER 03/02/14 COLONOSCOPY-DR ANAEBLLA CONCEPCION Social History Social History Type Response Smoking Status Never smoker entered on: 03/11/17 Sex
--- OUTSIDE RECORDS SUMMARY | 2024-05-03 22:14 | XMS_ITS | Continuity of Care Document ---
Author Organization [facility] Address [address] [place] [address]- Care Team Providers Care Gun Tester Name Role Phone Cortez Blunt MD Primary Care Physician Encounter [facility] R [id number] Date(s): 10/08/23 - 11/07/23 [facility] [address] [place] [address]- Attending Physician: Uri Chance Admitting Physician: AdmtrUri Referring Physician: Admtr, Ar8 Allergies, Adverse Reactions, Alerts Substance Reaction Severity Status lisinopril cough Active penicillins Rash Active Immunizations Given and Recorded Vaccine Date Status Refusal Reason tetanus/diphtheria/pertussis, acel(Tdap) 1 12/20/17 Given 1Result Comment: [12/20/2017] [facility] 55989-077-00 Medications aspirin 81 mg oral tablet 1 tablet = 81 mg, By Mouth, Daily, # 30 tablet, 0 Refills, Maintenance, 03/11/17 15:49:45, Tablet Start Date: 03/11/17 Status: Ordered doxazosin 4 mg oral tablet 1 tablet, By Mouth, Daily, # 90 tablet, 3 Refills, Maintenance, 07/13/23 5:16:00 EST, [facility] STORE 77130, 176.1, cm, 06/25/23 8:54:00 EST, Height, 146.1, kg, 08/29/22 15:57:00 EST, Dry Weight Start Date: 07/13/23 Status: Ordered Eliquis 5 mg oral tablet 1 tablet, By Mouth, 2 times a day, *STOP ASPIRIN*., # 60 tablet, 11 Refills, Maintenance, 07/13/23 5:16:00 EST, [facility] STORE 51885, 176.1, cm, 06/25/23 8:54:00 EST, Height, 146.1, kg, 08/29/22 15:57:00 EST, Dry Weight Start Date: 07/13/23 Status: Ordered gabapentin 100 mg oral capsule 2, capsule, By Mouth, Daily at bedtime, # 180 capsule, Refills 1, Maintenance, 10/05/23 12:18:00 EST, Route to Pharmacy Electronically, [facility] STORE 01619, 176.1, cm, 09/20/23 14:12:00 EST, Height, 146.1, kg, 08/29/22 15:57:00 EST, Dry Weight Start Date: 10/05/23 Status: Ordered LORazepam 2 mg oral tablet 1 tablet = 2 mg, By Mouth, Once, one hour prior to procedure, # 1 tablet, 0 Refills, Soft Stop, 07/22/23 6:37:00 EST, Tablet, [facility]/pharmacy #2071, Partial fill upon patient request if the prescriptionis for a schedule II opioid drug., 176.1, cm, 06/25... Start Date: 07/22/23 Status: Ordered Metoprolol Succinate ER 100 mg oral tablet, extended release 1 tablet, By Mouth, Daily, # 90 tablet, 3 Refills, Maintenance, 07/09/23 13:03:00 EST, [facility] STORE 75405, 176.1, cm, 06/25/23 8:54:00 EST, Height, 146.1, [...] 10/01/23 13:00:00 EST, Route to Pharmacy Electronically, [facility] STORE 08974, 176.1, cm, 09/20/23 14:12:00 EST, Height, 146.1, kg, 08/29/22 15:57:00 EST, Dry Weight Start Date: 10/01/23 Status: Ordered Tadalafil (Eqv-Cialis) 20 mg oral tablet 1 tablet, By Mouth, Daily, PRN NEEDED FOR ERECTILE DYSFUNCTION, # 5 tablet, 2 Refills, Maintenance, 06/13/23 18:58:00 EST, [facility], 176.1, cm, 05/13/23 9:04:00 EDT, Height, 146.1, [...] tablet, 3 Refills, Maintenance, 11/04/23 7:29:00 EDT, [facility] STORE 47624, 176, cm, 10/25/23 12:56:00 EDT, Height, 146.1, kg, 08/29/22 15:57:00 EST, Dry Weight Start Date: 11/04/23 Status: Ordered valsartan 160 mg oral tablet 160 mg, 1, tablet, By Mouth, 2 times a day, # 180 tablet, Refills 4, Tot. Refills 4, Maintenance, 07/09/23 13:10:00 EST, Route to Pharmacy Electronically, [facility]/pharmacy #0831, Partial fill upon patient request if the [...] Care Team Personnel Name: Alanis Harris Position: [facility] RN Supv Member Role: Primary Care Nurse Name: Brittani Anguiano RN Position: [facility] RN Member Role: Primary Care Nurse Name: Cortez Blunt MD Position: [facility] Physician - Primary Care Member Role: PCP Address: Address: [address] [place] [address]- Name: Ron Babb RN Position: [facility] RN Member Role: Primary Care Nurse Care Team Related Persons Name: CECY NGUYEN Address: home [address] [place] [address] Name: LEIDY NGUYEN JR Address: [address] [place] [address]
--- OUTSIDE RECORDS SUMMARY | 2024-05-03 22:14 | XMS_ITS | Continuity of Care Document ---
Author Organization [facility] Address [address] [facility], [address] d Floor, [address] [place] [address]- Care Team Providers Care Anode Rebuilder Name Role Phone Merlene BYRNE, Cortez Kendall Primary Care Physician [place] [facility] Date(s): 09/09/20 - 10/09/20 [facility] [address], [address], [address] [place] [id number] Attending Physician: Uri Chance Admitting Physician: AdmUri pride Referring Physician: AdmtrUri Allergies, Adverse Reactions, Alerts Substance Reaction Severity Status lisinopril Active penicillins Rash Active Immunizations Given and Recorded Vaccine Date Status Refusal Reason tetanus/diphtheria/pertussis, acel(Tdap) 1 12/20/17 Given Not Given Vaccine Date Status Refusal Reason Influenza Virus Vaccine (oldterm) 06/21/19 Not Giv en Patient Refuses 1Result Comment: [12/20/2017] [facility] 77774-815-64 Medications amLODIPine 10 mg oral tablet 10 mg, 1, tablet, By Mouth, Daily, # 30 tablet, Refills 5, Tot. Refills 5, Soft Stop, 06/26/20 7:57:00 EST, Route to Pharmacy Electronically, [facility]/pharmacy #[id number], 176.4, cm, 06/26/20 7:01:00 EST, Height [...] each, 5 Refills, Maintenance, 06/26/20 7:59:00 EST, [facility], Partial fill upon patient request, 32 [...]
--- OUTSIDE RECORDS SUMMARY | 2024-05-03 22:14 | XMS_ITS | Continuity of Care Document ---
Author Organization [facility] Address [address] [place] [address]- Care Team Providers Care Rock Mason Apprentice Name Role Phone Merlene BYRNE, Cortez Kendall Primary Care Physician Encounter [facility] Date(s): 10/06/22 - 11/05/22 [facility] [address] [place] [address]- [place] Allergies, Adverse Reactions, Alerts Substance Reaction Severity Status lisinopril Active penicillins Rash Active Immunizations Given and Recorded Vaccine Date Status Refusal Reason tetanus/diphtheria/pertussis, acel(Tdap) 1 12/20/17 Given Not Given Vaccine Date Status Refusal Reason Influenza Virus Vaccine (oldterm) 06/21/19 Not Giv en Patient Refuses 1Result Comment: [12/20/2017] [facility] 04713-532-99 Medications Acetaminophen Daily, 0 Refills, Maintenance, 09/10/22 8:02:00 EST, Partial fill upon patient request if the prescription is for a schedule II opioid drug. Start Date: 09/10/22 Status: Ordered amiodarone 200 mg oral tablet 200 mg, 1, tablet, By Mouth, Daily, # 90 tablet, Refills 0, Tot. Refills 0, Maintenance, 10/06/22 9:50:00 EST, Route to Pharmacy Electronically, [facility]/pharmacy #[id number], Partial fill upon patient request if the prescription is for a schedule II opioid drug... Start Date: 10/06/22 Stop Date: 01/04/23 Status: Ordered amLODIPine 10 mg oral tablet 1 tablet, By Mouth, Daily, # 90 tablet, 3 Refills, Maintenance, 09/29/22 6:28:00 EST, [facility], 177.8, cm, 09/10/22 8:00:00 EST, Height, 146.1, [...] 0 Refills, Maintenance, 10/06/22 9:48:00 EST, Tablet, [facility]/pharmacy #[id number], Partial fill upon patient request if the prescription is for a schedule II opioid drug., 177.8, cm, 09/10/22 8:00:00 EST, Height,... Start Date: 10/06/22 Status: Ordered doxazosin 4 mg oral tablet 1 tablet, By Mouth, Daily, # 90 tablet, 1 Refills, Maintenance, 07/05/22 16:17:00 EST, [facility]/pharmacy#[id number], 178, cm, 07/01/22 7:55:00 EST, Height Start Date: 07/05/22 Status: Ordered Eliquis 5 mg oral tablet 1 tablet = 5 mg, By Mouth, 2 times a day, # 60 tablet, 5 Refills, Maintenance, 07/01/22 9:02:00 EST, Tablet, [facility]/pharmacy #[id number], Partial fill upon patient request if the prescription is for a schedule II opioid drug., 178, cm, 07/01/22 7:55:00 EST, He... Start Date: 07/01/22 Status: Ordered gabapentin 100 mg oral capsule 2, capsule, By Mouth, Daily at bedtime, # 60 capsule, Refills 2, Maintenance, 09/28/22 14:04:00 EST, Route to Pharmacy Electronically, [facility] STORE 27526, 177.8, cm, 09/10/22 8:00:00 EST, Height, 146.1,kg, 08/29/22 15:57:00 EST, Dry Weight Start Date: 09/28/22 Status: Ordered metoprolol succinate 100 mg oral capsule, extended release 1 capsule = 100 mg, By Mouth, Daily, # 30 capsule, 0 Refills, Maintenance, 09/05/22 9:33:00 EST, Johnathon, [facility], Partial fill upon patient [...] 10/06/22 9:49:00 EST, Route to Pharmacy Electronically, [facility]/pharmacy #[id number], Partial fill upon patient request if the prescription is for a schedule II opioid drug.... Start Date: 10/06/22 Stop Date: 01/04/23 Status: Ordered Tadalafil (Eqv-Cialis) 20 mg oral tablet 1 tablet, By Mouth, Daily, PRN NEEDED FOR ERECTILE DYSFUNCTION, # 5 tablet, 2 Refills, Maintenance, 08/11/22 9:25:00 EST, [facility] STORE 20365, 178, cm, 08/07/22 15:14:00 EST, Height, 147, kg, 08/04/2217:07:00 EST, Dry Weight Start Date: 08/11/22 Status: Ordered torsemide 20 mg oral tablet 1 tablet = 20 mg, By Mouth, 2 times a day, # 180 tablet, 0 Refills, Maintenance, 10/06/22 9:48:00 EST, Tablet, [facility]/pharmacy #[id number], Partial fill upon patient request if the prescription is for a schedule II opioid drug., 177.8, cm, 09/10/22 8:00:00 EST... Start Date: 10/06/22 Stop Date: 01/04/23 Status: Ordered valsartan 160 mg oral tablet 160 mg, 1, tablet, By Mouth, 2 times a day, # 180 tablet, Refills 4, Tot. Refills 4, Maintenance, 10/19/22 13:24:00 EDT, Route to Pharmacy Electronically, [facility]/pharmacy #[id number], Partial fill upon [...] Team Personnel Name: Lázaro Garcia RN Position: [facility] RN Member Role: Primary Care Nurse Name: Alanis Harris Position: [facility] RN Supv Member Role: Primary Care Nurse Name: Brittani Anguiano RN Position: [facility] SN RN Member Role: Primary Care Nurse Name: Cortez Blunt MD Position: [facility] Primary Care Physician Member Role: PCP Address: Address: [address] [place] [address]- Name: Ron Babb RN Position: [facility] RN Member Role: Primary Care Nurse Care Team Related Persons Name: CECY NGUYEN Address: [address] [place] [address] Name: LEIDY NGUYEN JR Address: [address] [place] [address]
--- OUTSIDE RECORDS SUMMARY | 2024-05-03 22:14 | XMS_ITS | Continuity of Care Document ---
Author Organization [facility] Address [address] [place] [address]- Care Team Providers Care Pari Mutual Ticket Checker Name Role Phone Cortez Blunt MD Primary Care Physician [phone] [id number] Date(s): 06/19/22 - 07/25/22 [facility] [place] [address] [place] [address]- Attending Physician: Cortez Blunt MD Allergies, Adverse Reactions, Alerts Substance Reaction Severity Status lisinopril Active penicillins Rash Active Immunizations Given and Recorded Vaccine Date Status Refusal Reason tetanus/diphtheria/pertussis, acel(Tdap) 1 12/20/17 Given Not Given Vaccine Date Status Refusal Reason Influenza Virus Vaccine (oldterm) 06/21/19 Not Giv en Patient Refuses 1Result Comment: [12/20/2017] [facility] 73234-957-93 Medications aspirin 81 mg oral tablet 1 [...] 07/01/22 9:03:00 EST, Route to Pharmacy Electronically, [facility]/pharmacy #[id number], Partial fill upon patient request if the prescription is for a schedule II opi... Start Date: 07/01/22 Status: Ordered gabapentin 100 mg oral capsule 2, capsule, By Mouth, Daily at bedtime, # 60 capsule, Refills 2, Maintenance, 06/18/22 11:52:00 EST, Route to Pharmacy Electronically, [facility], 176.4, cm, 05/15/22 11:35:00 EDT, Height Start [...] 07/01/22 9:03:00 EST, Route to Pharmacy Electronically, [facility]/pharmacy #[id number], Partial fill upon patient request if [...] Refills, Maintenance, 04/12/22 10:29:00 EDT, [facility], 176.4, cm, 02/02/22 11:18:00 EDT, Height Start [...] Team Personnel Name: Luis Varma RN Position: [facility] RN Member Role: Primary Care Nurse Name: Brittani Anguiano RN Position: S RN Member Role: Primary Care Nurse Name: Cortez Blunt MD Position: [facility] Primary Care Physician Member Role: PCP Address: Address: [address] [place] [address]- Name: Edna Kelly RN Position: S RN Member Role: Primary Care Nurse Name: Ron Babb RN Position: S RN Member Role: Primary Care Nurse Care Team Related Persons Name: CECY NGUYEN Address: home [address] [place] [address] Name: LEIDY NGUYEN JR Address: [address] [place] [address]
--- OUTSIDE RECORDS SUMMARY | 2024-05-03 22:14 | XMS_ITS | Continuity of Care Document ---
Author Organization [facility] Address [address] [place] [address]- Care Team Providers Care Blender Name Role Phone Merlene BYRNE, Cortez Kendall Primary Care Physician [phone] Encounter [facility] Date(s): 05/13/23 - 06/12/23 [facility] [address] [place], [place] [address] Attending Physician: Uri Chance Admitting Physician: AdmUri pride Referring Physician: Admtr ArApril Allergies, Adverse Reactions, Alerts Substance Reaction Severity Status lisinopril cough Active penicillins Rash Active Immunizations Given and Recorded Vaccine Date Status Refusal Reason tetanus/diphtheria/pertussis, acel(Tdap) 1 12/20/17 Given 1Result Comment: [12/20/2017] [facility] 95141-644-83 Medications Acetaminophen Daily, 0 Refills, Maintenance, 09/10/22 [...] Refills, Maintenance, 12/17/22 11:10:00 EDT, [facility], 176.1, cm, 10/21/22 11:09:00 EDT, Height, 146.1, kg, 08/29/22 15:57:00 EST, Dry Weight Start Date: 12/17/22 Status: Ordered Eliquis 5 mg oral tablet 1 tablet = 5 mg, By Mouth, 2 times a day, # 60 tablet, 5 Refills, Maintenance, 07/01/22 9:02:00 EST, Tablet, [facility]/pharmacy #[id number], Partial fill upon patient request if the prescription is for a schedule II opioid drug., 178, cm, 07/01/22 7:55:00 EST, He... Start Date: 07/01/22 Status: Ordered gabapentin 100 mg oral capsule 2, capsule, By Mouth, Daily at bedtime, # 180 capsule, Refills 1, Tot. Refills 1, Maintenance, 05/10/23 13:26:00 EDT, Route to Pharmacy Electronically, [facility]/pharmacy #[id number], 176.1, cm, 05/10/23 13:05:00 EDT, Height, 146.1, kg, 08/29/22 15:57:00 EST, Dry... Start Date: 05/10/23 Status: Ordered LORazepam 2 mg oral tablet 1 tablet = 2 mg, By Mouth, Once, one hour prior to procedure, # 1 tablet, 0 Refills, Soft Stop, 06/10/23 5:16:00 EDT, Tablet, [facility]/pharmacy #[id number], Partial fill upon patient request if the prescriptionis for a schedule II opioid drug., 176.1, cm, 05/13... Start Date: 06/10/23 Status: Ordered Metoprolol Succinate ER 100 mg oral tablet, extended release See Instructions, TAKE 1 TABLET BY MOUTH EVERY DAY, # 90 tablet, 1 Refills, Maintenance, 11/09/22 9:12:00 EDT, [facility]/pharmacy #[id number], 176.1, cm, 10/21/22 11:09:00 EDT, [...] EDT, Route to Pharmacy Electronically, [facility], 176.1, cm, 12/21/22 16:31:00 EDT, Height, 146.1, kg, 08/29/2314:57:00 EST, Dry Weight Start Date: 02/05/23 Status: Ordered Tadalafil (Eqv-Cialis) 20 mg oral tablet 1 tablet, By Mouth, Daily, PRN NEEDED FOR ERECTILE DYSFUNCTION, # 5 tablet, 1 Refills, Maintenance, 01/25/23 20:35:00 EDT, [facility], 176.1, cm, 12/21/22 16:31:00 EDT, Height, 146.1, [...] Refills, Maintenance, 12/17/22 6:36:00 EDT, Tablet, [facility]/pharmacy #[id number], Partial fill upon patient request if the prescription is for a schedule II opioid drug., 176.1, cm, 10/21/22 11:09:00 ED... Start Date: 12/17/22 Stop Date: 12/12/23 Status: Ordered valsartan 160 mg oral tablet 160 mg, 1, tablet, By Mouth, 2 times a day, # 180 tablet, Refills 4, Tot. Refills 4, Maintenance, 10/19/22 13:24:00 EDT, Route to Pharmacy Electronically, [facility]/pharmacy #[id number], Partial fill upon patient request [...] Care Team Personnel Name: Alanis Harris Position: [facility] RN Supv Member Role: Primary Care Nurse Name: Brittani Anguiano RN Position: [facility] RN Member Role: Primary Care Nurse Name: Cortez Blunt MD Position: [facility] Physician - Primary Care Member Role: PCP Address: Address: [address] [place] [address]- Name: Ron Babb RN Position: [facility] RN Member Role: Primary Care Nurse Care Team Related Persons Name: CECY NGUYEN Address: home [address] [place] [address] Name: LEIDY NGUYEN JR Address: [address] [place] [address]
--- OUTSIDE RECORDS SUMMARY | 2024-05-03 22:14 | XMS_ITS | Continuity of Care Document ---
Author Organization [facility] Address [address] [place] [address]- Care Team Providers Care Wool Scourer Name Role Phone Merlene BYRNE, Cortez Kendall Primary Care Physician Encounter [facility] Date(s): 12/02/23 - 01/01/24 [facility] [address] [place] [address]- Allergies, Adverse Reactions, Alerts Substance Reaction Severity Status lisinopril cough Active penicillins Rash Active Immunizations Given and Recorded Vaccine Date Status Refusal Reason tetanus/diphtheria/pertussis, acel(Tdap) 1 12/20/17 Given 1Result Comment: [12/20/2017] [facility] 93319-609-04 Medications aspirin 81 mg oral tablet 1 tablet = 81 mg, By Mouth, Daily, # 30 tablet, 0 Refills, Maintenance, 03/11/17 15:49:45, Tablet Start Date: 03/11/17 Status: Ordered doxazosin 4 mg oral tablet 1 tablet, By Mouth, Daily, # 90 tablet, 3 Refills, Maintenance, 07/13/23 5:16:00 EST, [email or web address] ST[facility] 17129, 176.1, cm, 06/25/23 8:54:00 EST, Height, 146.1, kg, 08/29/22 15:57:00 EST, Dry Weight Start Date: 07/13/23 Status: Ordered Eliquis 5 mg oral tablet 1 tablet, By Mouth, 2 times a day, *STOP ASPIRIN*., # 60 tablet, 11 Refills, Maintenance, 07/13/23 5:16:00 EST, [email or web address] STORE 77836, 176.1, cm, 06/25/23 8:54:00 EST, Height, 146.1, kg, 08/29/22 15:57:00 EST, Dry Weight Start Date: 07/13/23 Status: Ordered gabapentin 100 mg oral capsule 2, capsule, By Mouth, Daily at bedtime, # 180 capsule, Refills 1, Maintenance, 10/05/23 12:18:00 EST, Route to Pharmacy Electronically, [email or web address] ST[facility] 89799, 176.1, cm, 09/20/23 14:12:00 EST, Height, 146.1, [...] tablet, 3 Refills, Maintenance, 07/09/23 13:03:00 EST, [email or web address] STORE 01691, 176.1, cm, 06/25/23 8:54:00 EST, Height, 146.1, [...] 10/01/23 13:00:00 EST, Route to Pharmacy Electronically, [email or web address] STORE 71531, 176.1, cm, 09/20/23 14:12:00 EST, Height, 146.1, kg, 08/29/22 15:57:00 EST, Dry Weight Start Date: 10/01/23 Status: Ordered Tadalafil (Eqv-Cialis) 20 mg oral tablet 1 tablet, By Mouth, Daily, PRN NEEDED FOR ERECTILE DYSFUNCTION, # 5 tablet, 2 Refills, Maintenance, 06/13/23 18:58:00 EST, [facility], 176.1, cm, 05/13/23 9:04:00 EDT, Height, 146.1, [...] Refills, Maintenance, 11/04/23 7:29:00 EDT, [facility], 176, cm, 10/25/23 12:56:00 EDT, Height, 146.1, kg, 08/29/22 15:57:00 EST, Dry Weight Start Date: 11/04/23 Status: Ordered valsartan 160 mg oral tablet 160 mg, 1, tablet, By Mouth, 2 times a day, # 180 tablet, Refills 4, Tot. Refills 4, Maintenance, 07/09/23 13:10:00 EST, Route to Pharmacy Electronically, [facility]/pharmacy #9171, Partial fill upon patient request if the [...] Care Team Personnel Name: Alanis Harris Position: [facility] RN Supv Member Role: Primary Care Nurse Name: Brittani Anguiano RN Position: [facility] SN RN Member Role: Primary Care Nurse Name: Sherrell Yan RN Position: [facility] RN Member Role: Primary Care Nurse Name: Cortez Blunt MD Position: [facility] Physician - Primary Care Member Role: PCP Address: Address: [address] [place] [id number]- Name: Godwin Perkins RN Position: [facility] RN Member Role: Primary Care Nurse Name: Ron Babb RN Position: [facility] RN Member Role: Primary Care Nurse Care Team Related Persons Name: CECY NGUYEN Address: [address] [place] [address] Name: LEIDY NGUYEN JR Address: [address] [place] [address]
--- OUTSIDE RECORDS SUMMARY | 2024-05-03 22:14 | XMS_ITS | Continuity of Care Document ---
Author Organization [facility] Darrell lt Address [address] [place] [address]- Care Team Providers Care Puffer Tender Name Role Phone Cortez Blunt MD Primary Care Physician [phone] [id number] - [facility] Adult [address] [place] [address]- Attending Physician: Cortez Blunt MD Allergies, Adverse Reactions, Alerts Substance Reaction Severity Status lisinopril Active penicillins Rash Active Immunizations Given and Recorded Vaccine Date Status Refusal Reason tetanus/diphtheria/pertussis, acel(Tdap) 1 12/20/17 Given Not Given Vaccine Date Status Refusal Reason Influenza Virus Vaccine (oldterm) 06/21/19 Not Giv en Patient Refuses 1Result Comment: [12/20/2017] [facility] 56283-383-63 Medications amLODIPine 10 mg oral tablet 1 tablet, By Mouth, Daily, # 30 tablet, 2 Refills, Maintenance, 07/23/21 12:04:00 EST, [facility]/pharmacy#[id number], 176.4, cm, 04/07/21 7:14:00 EDT, Height Start Date: 07/23/21 Status: Ordered aspirin 81 mg oral tablet 1 tablet = 81 mg, By Mouth, Daily, # 30 tablet, 0 Refills, Maintenance, 03/11/17 15:49:45, Tablet Start Date: 03/11/17 Status: Ordered doxazosin 4 mg oral tablet 1 tablet, By Mouth, Daily, # 90 tablet, 0 Refills, [facility], 176.4, cm, 04/07/21 7:14:00 EDT, Height Start Date: 06/17/21 Status: Ordered gabapentin 100 mg oral capsule 1, capsule, By Mouth, Daily at bedtime, # 30 capsule, Refills 2, Route to Pharmacy Electronically, [facility], 176.4, cm, 04/07/21 7:14:00 EDT, Height Start Date: 07/24/21 Status: Ordered irbesartan 150 mg oral tablet 1 tablet, By Mouth, Daily, # 90 tablet, 1 Refills, [facility], 176.4, cm, 04/07/21 7:14:00 EDT, Height Start Date: 06/18/21 Status: Ordered Tadalafil (Eqv-Cialis) 20 mg oral tablet 1 tablet, By Mouth, Daily, PRN NEEDED FOR ERECTILE DYSFUNCTION, # 5 tablet, 0 Refills, [id number], 176.4, cm, 04/07/21 7:14:00 EDT, Height Start Date: 07/18/21 Status: Ordered Problem List Condition Effective Dates Status Health Status Inform ant Benign essential hypertension(Confirmed) Active Sleep related hypoventilation/hypoxemia in other disease(Confirmed) Active Diverticulosis(Confirmed) 1 Active Hemorrhoids(Confirmed) Active Bilateral knee pain(Confirmed) Active Migraine(Confirmed) Active Obesity(Confirmed) Active RJ (obstructive sleep apnea)(Confirmed) Active Severe obesity(Confirmed) Active 1PER 03/02/14 COLONOSCOPY-DR ANABELLA CONCEPCION Vital Signs Most recent to oldest [Reference Range]: 1 Height 176.4 cm (07/28/21 11:35 AM) Weight 167.3 kg (07/28/21 11:35 AM) Oxygen Saturation [94-100 %] 99 % (07/28/21 11:35 AM) Pulse Rate [55-90 bpm] 78 bpm (07/28/21 11:35 AM) Body Mass Index [18.5-24.99] 53.76 *>HHI* (07/28/21 11:35 AM) Blood Pressure [90-138/55-84 mm Hg] 138/ 76mm Hg (07/28/21 11:35 AM) Temperature [96.8-100.4 DegF] 98.7 DegF (07/28/21 11:35 AM) Blood pressure sites Arm, left (07/28/21 11:35 AM) Temperature Route Oral (07/28/21 11:35 AM) Weight Obtained Via Standing scale (07/28/21 11:35 AM) Social History Social History Type Response Smoking Status Never smoker entered on: 03/11/17 Sex
--- OUTSIDE RECORDS SUMMARY | 2024-05-03 22:14 | XMS_ITS | Continuity of Care Document ---
Author Organization [facility] Address [address] [place] [address]- Care Team Providers Care Otter Trawler Boatswain Name Role Phone Merlene BYRNE, Cortez Kendall Primary Care Physician Encounter [facility] Date(s): 09/25/20 - 10/31/[address] [id number] Attending Physician: Bianca Winchester MD Admitting Physician: Bianca Winchester MD Referring Physician: Bianca Winchester MD Allergies, Adverse Reactions, Alerts Substance Reaction Severity Status lisinopril Active penicillins Rash Active Immunizations Given and Recorded Vaccine Date Status Refusal Reason tetanus/diphtheria/pertussis, acel(Tdap) 1 12/20/17 Given Not Given Vaccine Date Status Refusal Reason Influenza Virus Vaccine (oldterm) 06/21/19 Not Giv en Patient Refuses 1Result Comment: [12/20/2017] [facility] [id number] Medications amLODIPine 10 mg oral tablet 10 mg, 1, tablet, By Mouth, Daily, # 30 tablet, Refills 5, Tot. Refills 5, Soft Stop, 06/26/20 7:57:00 EST, Route to Pharmacy Electronically, [facility]/pharmacy #[id number], 176.4, cm, 06/26/20 7:01:00 EST, Height Start Date: 06/26/20 Status: Ordered aspirin 81 mg oral tablet 1 tablet = 81 mg, By Mouth, Daily, # 30 tablet, 0 Refills, Maintenance, 03/11/17 15:49:45, Tablet Start Date: 03/11/17 Status: Ordered doxazosin 4 mg oral tablet 1 tablet, By Mouth, Daily, # 30 tablet, 5 Refills, Maintenance, 06/26/20 7:57:00 EST, [facility], 176.4, cm, 06/26/20 7:01:00 EST, Height Start Date: 06/26/20 Status: Ordered irbesartan 150 mg oral tablet 1 tablet, By Mouth, Daily, # 30 tablet, 5 Refills, Maintenance, 06/26/20 7:57:00 EST, [facility], 176.4, cm, 06/26/20 7:01:00 EST, Height Start Date: 06/26/20 Status: Ordered Pedialyte oral solution See Instructions, 32 ounces by mouth daily, # 30 each, 5 Refills, Maintenance, 06/26/20 7:59:00 EST, [id number], Partial fill upon patient request, 32 ounces [...]
--- OUTSIDE RECORDS SUMMARY | 2024-05-03 22:14 | XMS_ITS | Continuity of Care Document ---
Author Organization [facility] Darrell Address [address] [place] [address]- Care Team Providers Care Carry All Driver Name Role Phone Merlene BYRNE, Cortez Kendall Primary Care Physician Encounter [facility] Date(s): 05/15/22 - 06/14/22 [facility] Adult [address] [place] [address]- Attending Physician: AdmUri pride Admitting Physician: AdmUri pride Referring Physician: AdmtrUri Allergies, Adverse Reactions, Alerts Substance Reaction Severity Status lisinopril Active penicillins Rash Active Immunizations Given and Recorded Vaccine Date Status Refusal Reason tetanus/diphtheria/pertussis, acel(Tdap) 1 12/20/17 Given Not Given Vaccine Date Status Refusal Reason Influenza Virus Vaccine (oldterm) 06/21/19 Not Giv en Patient Refuses 1Result Comment: [12/20/2017] [facility] [id number] Medications amLODIPine 10 mg oral tablet 1 tablet, By Mouth, Daily, # 90 tablet, 1 Refills, Maintenance, 04/12/22 10:29:00 EDT, [facility], 176.4, cm, 02/02/22 11:18:00 EDT, Height Start Date: 04/12/22 Status: Ordered aspirin 81 mg oral tablet 1 tablet = 81 mg, By Mouth, Daily, # 30 tablet, 0 Refills, Maintenance, 03/11/17 15:49:45, Tablet Start Date: 03/11/17 Status: Ordered doxazosin 4 mg oral tablet 1 tablet, By Mouth, Daily, # 90 tablet, 1 Refills, [facility], 176.4, cm, 08/15/21 9:23:00 EST, Height Start Date: 01/17/22 Status: Ordered gabapentin 100 mg oral capsule 2, capsule, By Mouth, Daily at bedtime, # 60 capsule, Refills 2, Route to Pharmacy Electronically, [facility], 176.4, cm, 02/02/22 11:18:00 EDT, Height Start Date: 02/26/22 Status: Ordered Tadalafil (Eqv-Cialis) 20 mg oral tablet 1 tablet, By Mouth, Daily, PRN NEEDED FOR ERECTILE DYSFUNCTION, # 5 tablet, 2 Refills, Maintenance, 04/12/22 10:29:00 EDT, [facility], 176.4, cm, 02/02/22 11:18:00 EDT, Height Start [...] obesity Confirmed Active 1PER 03/02/14 [facility] Procedure Date Related Diagnosis Body Site Status Polysomnogram 1 02/26/15 Completed Transthoracic echocardiography 2 01/22/15 Completed Colonoscopy 3 03/02/14 Completed 1SLE MEDICINE [facility]-CPAP AT PRESSURE OF 13 CM H2O, USING A LARGE GUNDERSON/PAYKEL SIMPLUS FULL FACE MASK AND HEATED HUMIDIFICATION. DX JR [facility]-NORMAL LEFT VENTRICULAR SIZE AND SYSTOLIC FX. MODERATE CONCENTRIC LEFT VENTRICULAR HYPERTROPHY. LEFT VENTRICULAR EJECTION FRACTION IS 60-65%. E-A REVERSAL CONSISTENT WITH MILD DIASTOLIC RELAXATION ABNORMALITY. 3Repeat in 10 years Social History Social History Type Response Smoking Status Never smoker entered on: 03/11/17 Sex Patient Care team information Personnel Name: Merlene BYRNE, Cortez Kendall Address: Address: [address] [place] [id number]-
--- OUTSIDE RECORDS SUMMARY | 2024-05-03 22:14 | XMS_ITS | Continuity of Care Document ---
Author Organization [facility] Kevin Darrell Address [address] [place] [address]- Care Team Providers Care Warning Analyst Name Role Phone Merlene BYRNE, Cortez Kendall Primary Care Physician En[place] [facility] Date(s): 02/17/23 - 02/24/23 [facility] Adult [address] [place] [address]- Encounter Diagnosis Right foot pain(Discharge Diagnosis) - 02/17/23 Benign essential hypertension(Discharge Diagnosis) - 02/17/23 Attending Physician: Tello Irizarry DO Allergies, Adverse Reactions, Alerts Substance Reaction Severity Status lisinopril cough Active penicillins Rash Active Immunizations Given and Recorded Vaccine Date Status Refusal Reason tetanus/diphtheria/pertussis, acel(Tdap) 1 12/20/17 Given Not Given Vaccine Date Status Refusal Reason Influenza Virus Vaccine (oldterm) 06/21/19 Not Giv en Patient Refuses 1Result Comment: [12/20/2017] [facility] [id number] Medications Acetaminophen Daily, 0 Refills, Maintenance, 09/10/22 8:02:00 EST, Partial fill upon patient request if the prescription is for a schedule II opioid drug. Start Date: 09/10/22 Status: Ordered amLODIPine 10 mg oral tablet 1 tablet, By Mouth, Daily, # 90 tablet, 3 Refills, Maintenance, 09/29/22 6:28:00 EST, [facility] 34579, 177.8, cm, 09/10/22 8:00:00 EST, Height, 146.1, [...] Acute 02/27/23 10:48:00 EDT, 02/17/23 10:48:00 EDT, [facility]/pharmacy #[id number], Partial fill upon patient request if the prescription is for a schedule II opioid drug., 1 tablet By Mouth... Start Date: 02/17/23 Stop Date: 02/27/23 Status: Ordered dapagliflozin 10 mg oral tablet 1 tablet = 10 mg, By Mouth, Daily, # 90 tablet, 0 Refills, Maintenance, 10/06/22 9:48:00 EST, Tablet, [facility]/pharmacy #[id number], Partial fill upon patient request if the prescription is for a schedule II opioid drug., 177.8, cm, 09/10/22 8:00:00 EST, Height,... Start Date: 10/06/22 Status: Ordered doxazosin 4 mg oral tablet 1 tablet, By Mouth, Daily, # 90 tablet, 1 Refills, Maintenance, 12/17/22 11:10:00 EDT, [facility], 176.1, cm, 10/21/22 11:09:00 EDT, Height, 146.1, kg, 08/29/22 15:57:00 EST, Dry Weight Start Date: 12/17/22 Status: Ordered Eliquis 5 mg oral tablet 1 tablet = 5 mg, By Mouth, 2 times a day, # 60 tablet, 5 Refills, Maintenance, 07/01/22 9:02:00 EST, Tablet, [facility]/pharmacy #[id number], Partial fill upon patient request if the prescription is for a schedule II opioid drug., 178, cm, 07/01/22 7:55:00 EST, He... Start Date: 07/01/22 Status: Ordered gabapentin 100 mg oral capsule 2, capsule, By Mouth, Daily at bedtime, # 60 capsule, Refills 2, Maintenance, 02/05/23 11:56:00 EDT, Route to Pharmacy Electronically, [facility] 9[facility], 176.1, cm, 12/21/22 16:31:00 EDT, Height, 146.1, kg, 08/29/22 15:57:00 EST, Dry Weight Start Date: 02/05/23 Status: Ordered Metoprolol Succinate ER 100 mg oral tablet, extended release See Instructions, TAKE 1 TABLET BY MOUTH EVERY DAY, # 90 tablet, 1 Refills, Maintenance, 11/09/22 9:12:00 EDT, [facility]/pharmacy #[id number], 176.1, cm, 10/21/22 11:09:00 EDT, Height, [...] EDT, Route to Pharmacy Electronically, [facility], 176.1, cm, 12/21/22 16:31:00 EDT, Height, 146.1, kg, 08/29/2314:57:00 EST, Dry Weight Start Date: 02/05/23 Status: Ordered Tadalafil (Eqv-Cialis) 20 mg oral tablet 1 tablet, By Mouth, Daily, PRN NEEDED FOR ERECTILE DYSFUNCTION, # 5 tablet, 1 Refills, Maintenance, 01/25/23 20:35:00 EDT, [facility], 176.1, cm, 12/21/22 16:31:00 EDT, Height, 146.1, [...] 3 Refills, Maintenance, 12/17/22 6:36:00 EDT, Tablet, [facility]/pharmacy #[id number], Partial fill upon patient request if the prescription is for a schedule II opioid drug., 176.1, cm, 10/21/22 11:09:00 ED... Start Date: 12/17/22 Stop Date: 12/12/23 Status: Ordered valsartan 160 mg oral tablet 160 mg, 1, tablet, By Mouth, 2 times a day, # 180 tablet, Refills 4, Tot. Refills 4, Maintenance, 10/19/22 13:24:00 EDT, Route to Pharmacy Electronically, [facility]/pharmacy #[id number], Partial fill upon patient request if [...] Service Informant Right foot pain Discharge Diagnosis 02/17/23 Benign essential hypertension Discharge Diagnosis 02/17/23 Vital Signs Most recent to oldest [Reference Range]: 1 Height 176.1 cm (02/17/23 10:37 AM) Weight 152.2 kg (02/17/23 10:37 AM) Oxygen Saturation [94-100 %] 97 % (02/17/23 10:37 AM) Pulse Rate [55-90 bpm] 56 bpm (02/17/23 10:37 AM) Body Mass Index [18.5-24.99 kg/m2] 49.08 kg/m2 *>HHI* (02/17/23 10:37 AM) Blood Pressure [90-138/55-84 mm Hg] 121/ 65mm Hg (02/17/23 10:37 AM) Respiratory Rate [16-30 br/min] 16 br/mi n (02/17/23 10:37 AM) Temperature [96.8-100.4 DegF] 98.1 DegF (02/17/23 10:37 AM) Mode of Delivery (Oxygen) Room air (02/17/23 10:37 AM) Blood pressure sites Arm, right (02/17/23 10:37 AM) Temperature Route Oral (02/17/23 10:37 AM) Weight Obtained Via Standing scale (02/17/23 10:37 AM) Social History Social History Type Response Smoking Status Never smoker entered on: 03/11/17 Sex Note * Belkys Tang: PERFORM, SIGN, VERIFY Event Display: Patient Education/Instruction Authored Date: [id number] [facility] *BMP So [place] Zambrano Clinical Summary Name LEIDY NGUYEN Age 62 Years 1960 PCP Cortez Blunt MD PCP Visit Date 02/17/2023 10:29:00 Patient Instructions Plans to x-ray your foot aleve 1 twice a day as needed for pain We will put you on antibiotics follow up in 1 week earlier?if it worsens or changes??prior Additional Instructions: Scheduled Appointments?? Future Appointments ?*BMP??So??[place] [address] ?Phone:??--?Fax:??-- ?Appt. Date:??04/26/2023?12:50 PM ?Scheduled Provider:??Cortez Blunt MD Follow-Up Instructions ?? With: Address: When: f/u 1 week Diagnosis Essential (primary) hypertension; Pain in right foot Medications: Please continue your medications until treatment is completed or stopped by your provider. Discuss any questions related to medications with your provider. New Medications [facility]/pharmacy #[id number], [address] [place] [id number], [phone] Sulfamethoxazole/Trimethoprim (Bactrim DS 800 mg-160 mg oral tablet) 1 tab(s) Oral twice a day for 10 Days. Refills: 0. Next Dose: Medications to Continue with No Changes These medications were not printed or sent to your pharmacy Acetaminophen Daily. Next Dose: Amlodipine (amLODIPine 10 mg oral tablet) 1 tab(s) Oral Daily. Refills: 3. Next Dose: apixaban (Eliquis 5 mg oral tablet) 1 tab(s) Oral twice a day. Refills: 5. Next Dose: Aspirin (aspirin 81 mg oral tablet) 1 tab(s) Oral Daily. Next Dose: dapagliflozin (dapagliflozin 10 mg oral tablet) 1 tab(s) Oral Daily. Refills: 0. Next Dose: Doxazosin (doxazosin 4 mg oral [...] for 90 Days. Refills: 4. Next Dose: Allergy Info:?? penicillins; lisinopril Medications Given This Visit Future Orders ?Foot Min 3 Views Right? Order Date:02/17/23?- Complete on or after?02/17/23 Vital Signs Height 176.1 cm Weight 152.2 kg BMI 49.08 kg/m2 Blood Pressure 121 mm Hg/65 mm Hg Temperature 98.1 DegF Pulse Rate 56 bpm Respiratory Rate 16 br/min 02 Sat Mode of Delivery 97 %/Room air You can now view a summary of your hospital visit from the comfort of your home through a free online portal called [employer]. [employer] is a website that allows you to securely view your medical information including discharge summary, medications and follow-up visits. ??You can alsosend a secure electronic message to your doctor???s office to request appointments, renew medications or just ask a question. You can enroll at [email or web address] or register during your next [...] primary care provider, you may find a [facility] provider by calling [facility] [employer] at [phone]. For information about the plan of care [...] Team Personnel Name: Lázaro Garcia RN Position: [facility] RN Member Role: Primary Care Nurse Name: Alanis Harris Position: [facility] RN Supv Member Role: Primary Care Nurse Name: Brittani Anguiano RN Position: [facility] RN Member Role: Primary Care Nurse Name: Cortez Blunt MD Position: [facility] Physician - Primary Care Member Role: PCP Address: Address: [address] [place] [address]- Name: Ron Babb RN Position: S RN Member Role: Primary Care Nurse Care Team Related Persons Name: CECY NGUYEN Address: [address] [place] [address] Name: LEIDY NGUYEN JR Address: home [address] [place] [address]
--- OUTSIDE RECORDS SUMMARY | 2024-05-03 22:14 | XMS_ITS | Continuity of Care Document ---
Author Organization [facility] [place] Darrell Address [address] [place] [address]- Care Team Providers Care Manager Interventional Name Role Phone Merlene BYRNE, Cortez Kendall Primary Care Physician [phone] Encounter [facility] Date(s): 07/09/20 - 08/08/20 [facility] Adult [address] [place] [address]- Allergies, Adverse Reactions, Alerts Substance Reaction Severity Status penicillins Rash Active Immunizations Given and Recorded Vaccine Date Status Refusal Reason tetanus/diphtheria/pertussis, acel(Tdap) 1 12/20/17 Given Not Given Vaccine Date Status Refusal Reason Influenza Virus Vaccine (oldterm) 06/21/19 Not Giv en Patient Refuses 1Result Comment: [12/20/2017] [facility] 12004-371-61 Medications amLODIPine 10 mg oral tablet 10 mg, 1, tablet, By Mouth, Daily, # 30 tablet, Refills 5, Tot. Refills 5, Soft Stop, 06/26/20 7:57:00 EST, Route to Pharmacy Electronically, [facility]/pharmacy #[id number], 176.4, cm, 06/26/20 7:01:00 EST, Height Start Date: 06/26/20 Status: Ordered aspirin 81 mg oral tablet 1 tablet = 81 mg, By Mouth, Daily, # 30 tablet, 0 Refills, Maintenance, 03/11/17 15:49:45, Tablet Start Date: 03/11/17 Status: Ordered doxazosin 4 mg oral tablet 1 tablet, By Mouth, Daily, # 30 tablet, 5 Refills, Maintenance, 06/26/20 7:57:00 EST, [facility]/pharmacy #[id number], 176.4, cm, 06/26/20 7:01:00 EST, Height Start Date: 06/26/20 Status: Ordered irbesartan 150 mg oral tablet 1 tablet, By Mouth, Daily, # 30 tablet, 5 Refills, Maintenance, 06/26/20 7:57:00 EST, [facility]/pharmacy #[id number], 176.4, cm, 06/26/20 7:01:00 EST, [...]
--- OUTSIDE RECORDS SUMMARY | 2024-05-03 22:14 | XMS_ITS | Continuity of Care Document ---
Author Organization [facility] Darrell lt Address [address] [place] [address]- Care Team Providers Care Finish Grinder Name Role Phone Merlene BYRNE, Cortez Kendall Primary Care Physician En[place] [facility] Date(s): 02/19/20 - 03/20/20 [facility] Adult [address] [place] [address]- [facility] Allergies, Adverse Reactions, Alerts Substance Reaction Severity Status penicillins Rash Active Immunizations Given and Recorded Vaccine Date Status Refusal Reason tetanus/diphtheria/pertussis, acel(Tdap) 1 12/20/17 Given Not Given Vaccine Date Status Refusal Reason Influenza Virus Vaccine (oldterm) 06/21/19 Not Giv en Patient Refuses 1Result Comment: [12/20/2017] [facility] [id number] Medications amLODIPine 10 mg oral tablet 10 mg, 1, tablet, By Mouth, Daily, # 30 tablet, Refills 3, Tot. Refills 3, Soft Stop, 10/26/19 8:30:00 EDT, Route to Pharmacy Electronically, [facility]/pharmacy #[id number], 176.4, cm, 10/19/19 6:57:00 EDT, Height Start Date: 10/26/19 Status: Ordered aspirin 81 mg oral tablet 1 tablet = 81 mg, By Mouth, Daily, # 30 tablet, 0 Refills, Maintenance, 03/11/17 15:49:45, Tablet Start Date: 03/11/17 Status: Ordered doxazosin 4 mg oral tablet 1 tablet, By Mouth, Daily, # 30 tablet, 2 Refills, Maintenance, 02/19/20 16:43:00 EDT, [facility]/pharmacy#[id number], 176.4, cm, 10/19/19 6:57:00 EDT, Height Start Date: 02/19/20 Status: Ordered furosemide 20 mg oral tablet 20 mg, 1, tablet, By Mouth, Daily, # 30 tablet, Refills 2, Tot. Refills 2, Maintenance, 02/19/20 16:43:00 EDT, Route to Pharmacy Electronically, [facility]/pharmacy #[id number], 176.4, cm, 10/19/19 6:57:00 EDT, Height Start Date: 02/19/20 Status: Ordered irbesartan 150 mg oral tablet 1 tablet, By Mouth, Daily, # 30 tablet, 2 Refills, Maintenance, 02/19/20 16:43:00 EDT, [facility]/pharmacy#[id number], 176.4, cm, 10/19/19 6:57:00 EDT, Height [...]
--- OUTSIDE RECORDS SUMMARY | 2024-05-03 22:14 | XMS_ITS | Continuity of Care Document ---
Author Organization [facility] Address [address] [place] [address]- Care Team Providers Care Mailing Machine Helper Name Role Phone Cortez Blunt MD Primary Care Physician [phone] Encounter [facility] [place] ACCT R [id number] Date(s): 08/12/22 - 08/19/22 [facility] [address] [place] [address]- Attending Physician: Kassandra Valdovinos NP Referring Physician: Cortez Blunt MD Allergies, Adverse Reactions, Alerts Substance Reaction Severity Status lisinopril Active penicillins Rash Active Immunizations Given and Recorded Vaccine Date Status Refusal Reason tetanus/diphtheria/pertussis, acel(Tdap) 1 12/20/17 Given Not Given Vaccine Date Status Refusal Reason Influenza Virus Vaccine (oldterm) 06/21/19 Not Giv en Patient Refuses 1Result Comment: [12/20/2017] [facility] [id number] Medications aspirin 81 mg oral tablet 1 [...] 06/18/22 11:52:00 EST, Route to Pharmacy Electronically, [facility], 176.4, cm, 05/15/22 11:35:00 EDT, Height Start Date: 06/18/22 Status: Ordered Lasix 40 mg oral tablet 40 mg, 1, tablet, By Mouth, Daily, # 30 tablet, Refills 5, Tot. Refills 5, Maintenance, 07/28/22 10:21:00 EST, Route to Pharmacy Electronically, [facility]/pharmacy #[id number], Partial fill upon patient request if the prescription is for a schedule II opioid drug... Start Date: 07/28/22 Stop Date: 01/24/23 Status: Ordered metoprolol succinate 100 mg oral capsule, extended release 1 capsule = 100 mg, By Mouth, Daily, # 30 capsule, 5 Refills, Maintenance, 08/12/22 10:28:00 EST, ER Capsule, [facility]/pharmacy #[id number], Partial fill upon [...] tablet, 2 Refills, Maintenance, 08/11/22 9:25:00 EST, [facility] 28973, 178, cm, 08/07/22 15:14:00 EST, Height, 147, kg, 08/04/2217:07:00 EST, Dry Weight Start Date: 08/11/22 Status: Ordered valsartan 40 mg oral tablet 40 mg, 1, tablet, By Mouth, 2 times a day, # 60 tablet, Refills 0, Tot. Refills 0, Maintenance, 08/07/22 16:11:00 EST, Route to Pharmacy Electronically, [facility], Partial fill upon patient [...] Range]: 1 2 3 Height 178 cm (08/12/22 10:30 AM) 178 cm (08/12/22 9:59 AM) 178 cm (08/12/22 9:41 AM) Weight 147 kg (08/12/22 10:30 AM) 147 kg (08/12/22 9:41 AM) Oxygen Saturation [94-100 %] 96 % (08/12/22 9:41 AM) Pulse Rate [55-90 bpm] 83 bpm (08/12/22 9:59 AM) 60 bpm (08/12/22 9:41 AM) Body Mass Index [18.5-24.99 kg/m2] 46.4 kg/m2 *>HHI* (08/12/22 9:41 AM) Blood Pressure [90-138/55-84 mm Hg] 143/97mm Hg *H* (08/12/22 9:59 AM) 140/99mm Hg *H* (08/12/22 9:41 AM) Blood pressure sites Arm, right (08/12/22 9:59 AM) Arm, left (08/12/22 9:41 AM) Social History Social History Type Response Smoking Status Never smoker entered on: 03/11/17 Sex EKG study * Event Display: ECG 12-Lead Authored Date: Please click on pdf link to open report * Event Display: ECG 12-Lead Authored Date: Ventricular Rate: 106 BPM Atrial Rate: 357 BPM QRS Duration: 96 ms Q-T Interval: 370 ms QTC Calculation(Bazett): 491 ms R [place]: 5 degrees T [place]: -12 degrees Atrial fibrillation with rapid ventricular response Cannot rule out Anterior infarct , age undetermined Abnormal ECG When compared with ECG of 07-AUG-2022 10:50, MANUAL COMPARISON REQUIRED, DATA IS UNCONFIRMED Confirmed by NINO GLORIA MD ([id number]) on 08/12/2022 4:52:15 PM [place]: NINO GLORIA MD Cardiology Outpatient Note * Bonifacio CHARITY FUNDRAISER, Kassanrda: PERFORM, MODIFY Event Display: Cardiology Note Office Authored Date: [id number] Patient: ??LEIDY NGUYEN ? Age:??61 Years?Sex:??Male?:??1960?? Indication for Consult inpatient follow up History of Present Illness/Interval History Leidy is a 61-year-old gentleman with PMH significant for JR on CPAP, HTN, obesity,??Afib/Aflutter??who was admitted 06/28 with new??A. fib??and CHF??with preserved??EF. He was cardioverted on 06/30 and /discharged 07/01 on flecainide. I saw him in follow up 07/28 and pt was in aflutter generally feeling ok. I referred him to the ED a week later again in CHF. He was??cardioverted on 08/06?? after being transitioned from flecainide to sotalol. He was discharged on in SR and called in on Thursday 08/10 reporting he was back in??Afib per his fitbit and was feeling some SOB in the evenings. He is here for??further evaluation today. ??He notes??going back in A. fib on Wednesday??night.?? He notes he has been more SOB,??more fatigued??and slowing down.?? He notes shortness of breath when lyingdown mostly.?? He does have some palpitations last night with some chest discomfort.?? He denies any??peripheral edema. ??He does use his CPAP nightly but feels??it needs to be updated as it is old and he has not followed up with anyone in a while. ??He did attempt a walk around the mall with his wi fe,??noting he had to stop and sit a lot. He would like to resume his walks and swimming laps. Review of Systems Pertinent positives per HPI Physical Exam Vitals & Measurements RI:??83?? BP:??143/97?? SpO2:??96%?? HT:??178??cm?? WT:??147??kg?? BMI:??46.4?? Weight lb/oz: 324 lb 1 oz General: Alert, sitting in chair comfortably, in NAD.??Ambulated independently,??steady??gait. Mental: Oriented x3. Appropriate affect. Converses easily Respiratory:??CTA. Nonlabored. Cardiovascular:??irregularly irregular. S1/S2. No M/R/G. No edema. No JVD. Gastrointestinal: Abdomen soft, non-tender, non-distended. Active bowel sounds. Neuro: Grossly intact. Moves all extremities spontaneously. Skin: [place], warm. CDI. Assessment/Plan Afib/Aflutter most recent admission, pt diuresed and started on sotalol,??cardioverted and discharged in SR. was discharged on??sotalol and apixaban. pt in rapid afib today. he is symptomatic as above. I discussedwith Dr. Vargas and then with pt. Will d/c sotalol at this time. Resume metoprolol. Will repeat cardioversion next week and start amiodarone. pt in agreement, will call if HRs elevated. Can increase Toprol dose. Has consult with EP 2/2 ?? HTN remains elevated. he is on valsartan. ?? HFpEF - has some SOB but I don't see any s/s HF. likely related to the afib. he notes he is down 5 pounds. has been watching his sodium intake ?? Plan: continue apixaban discontinue sotalol start??metoprolol 100 mg daily DCCV next week, then start amiodarone 400 mg BID EP referral as scheduled pt to call if HRs >100s continue lasix 40 mg daily sleep clinic referral Allergies lisinopril penicillins??(Rash) Home Medications aspirin 81 mg oral tablet, 81 mg= 1 tablet, By Mouth, Daily doxazosin 4 mg oral tablet, 1 tablet, By Mouth, Daily, 1 refills Eliquis 5 mg oral tablet, 5 mg= 1 tablet, By Mouth, 2 times a day, 5 refills gabapentin 100 mg oral capsule, 2 capsule, By Mouth, Daily at bedtime Lasix 40 mg oral tablet, 40 mg= 1 tablet, By Mouth, Daily, 5 refills omeprazole 20 mg oral enteric coated capsule, 20 mg= 1 capsule, By Mouth, Daily, (buys OTC) sotalol 120 mg oral tablet, 120 mg= 1 tablet, By Mouth, 2 times a day Tadalafil (Eqv-Cialis) 20 mg oral tablet, 1 tablet, By Mouth, Daily, PRN valsartan 40 mg oral tablet, 40 mg= 1 tablet, By Mouth, 2 times a day Lab Results Cardiology Labs WBC: 7.1 k/mm3 (08/07/22) RBC:??4.49 m/mm3??Low (08/07/22) Hgb:??13 Gm/dL??Low (08/07/22) Hct: 40.5 % (08/07/22) MCV: 90.2 femtoliters (08/07/22) MCH: 29 pg (08/07/22) MCHC:??32.1 g/dL??Low (08/07/22) Platelet Count: 189 k/mm3 (08/07/22) RDW-SD: 43.1 femtoliters (08/07/22) Nucleated RBC (Automated): 0 #/100 WBC'S (08/07/22) Abs. Neut: 5.4 k/mm3 (08/07/22) Abs. Lymph:??0.7 k/mm3??Low (08/07/22) Abs. [place]: 0.7 k/mm3 (08/07/22) Abs. Eo: 0.2 k/mm3 (08/07/22) Abs. Baso: 0 k/mm3 (08/07/22) Neut %:??76.2 %??High (08/07/22) [place] %: 10 % (08/07/22) Eos %: 3.4 % (08/07/22) Baso %: 0.4 % (08/07/22) Imm Gran: 0.3 % (08/07/22) Abs. Imm Gran: 0 k/mm3 (08/07/22) Sodium: 143 mmol/L (08/07/22) Potassium: 3.7 mmol/L (08/07/22) Chloride: 104 mmol/L (08/07/22) Bicarbonate Level: 29 mmol/L (08/07/22) Glucose Level:??108 mg/dL??High (08/07/22) Hemoglobin A1C (Monitoring): 5.3 % (06/23/22) BUN:??29 mg/dL??High (08/07/22) Creatinine-Blood: 1 mg/dL (08/07/22) Calcium: 9 mg/dL (08/07/22) Protein, Total:??5.8 Gm/dL??Low (08/07/22) Albumin: 3.9 Gm/dL (08/07/22) Alkaline Phosphatase: 85 units/L (08/07/22) AST (SGOT): 10 units/L (08/07/22) ALT (SGPT): 7 units/L (08/07/22) Bilirubin, Total: 0.6 mg/dL (08/07/22) CK, Total: 186 units/L (06/19/22) CK MB Confirmation - Quant: 5.2 ng/mL (06/19/22) Troponin T Quant: <0.01 (06/22/22) Nt-Probnp:??801 pg/mL??High (08/04/22) Cholesterol: 163 mg/dL (02/20/22) Triglycerides:??214 mg/dL??High (02/20/22) HDL Cholesterol:??36 mg/dL??Low (02/20/22) LDL Cholesterol: 84 mg/dL (02/20/22) Non HDL Cholesterol: 127 mg/dL (02/20/22) TSH: 1.77 uIU/mL (06/22/22) Diagnostic Impression ECG ECG 12-Lead * Preliminary * ?? 10:50:08 Ventricular Rate: 64 BPM Atrial Rate: 64 BPM P-R Interval: 164 ms QRS Duration: 98 ms Q-T Interval: 458 ms QTC Calculation(Bazett): 472 ms P [place]: 48 degrees R [place]: 10 degrees T [place]: 12 degrees Normal sinus rhythm Normal ECG When compared with ECG of 06-AUG-2022 23:02, MANUAL COMPARISON REQUIRED, DATA IS UNCONFIRMED ?? [place]: , Echo Echocardiogram - Complete ?? 08:23:59 Summary [...] for comparison. ?? Signature ?? Signed By: Melina BYRNE, Cristobal Hilton Problem List/Past Medical History Ongoing Benign essential hypertension Bilateral knee pain Diverticulosis Hemorrhoids Migraine Obesity JR (obstructive sleep apnea) Severe obesity Sleep related hypoventilation/hypoxemia in other disease Historical No qualifying data Procedure/Surgical History Polysomnogram: 02/26/15 Transthoracic echocardiography: 01/22/15 Colonoscopy: 03/02/14 Arthroscopy Social History Alcohol Use: Current. Other: [employer] only at communion., 03/11/2017 Employment/School Status: Employed. Other: [employer] school and faith., 03/11/2017 Exercise Self assessment: Poor condition. Regular [...] Team Personnel Name: Brittani Anguiano RN Position: [facility] RN Member Role: Primary Care Nurse Name: Cortez Blunt MD Position: [facility] Primary Care Physician Member Role: PCP Address: Address: [address] [place] [id number] Name: Edna Kelly RN Position: S RN Member Role: Primary Care Nurse Name: Ron Babb RN Position: [facility] RN Member Role: Primary Care Nurse Care Team Related Persons Name: CECY NGUYEN Address: home [address] [place] [address] Name: LEIDY NGUYEN JR Address: home [address] [place] [address]
--- OUTSIDE RECORDS SUMMARY | 2024-05-03 22:14 | XMS_ITS | Continuity of Care Document ---
Author Organization [facility] [place] [facility] Address [address] [place] [address]- Care Team Providers Care Divinity Professor Name Role Phone Merlene BYRNE, Cortez Kendall Primary Care Physician Encounter [facility] [place] [facility] ACCT R [id number] Date(s): 01/07/24 - 02/06/24 [facility] [place] Adult [address] [place] [address]- Allergies, Adverse Reactions, Alerts Substance Reaction Severity Status lisinopril cough Active penicillins Rash Active Immunizations Given and Recorded Vaccine Date Status Refusal Reason tetanus/diphtheria/pertussis, acel(Tdap) 1 12/20/17 Given 1Result Comment: [12/20/2017] [facility] 75125-751-39 Medications doxazosin 4 mg oral tablet 1 tablet, By Mouth, Daily, # 90 tablet, 3 Refills, Maintenance, 07/13/23 5:16:00 EST, [facility], 176.1, cm, 06/25/23 8:54:00 EST, Height, 146.1, kg, 08/29/22 15:57:00 EST, Dry Weight Start Date: 07/13/23 Status: Ordered Eliquis 5 mg oral tablet 1 tablet, By Mouth, 2 times a day, *STOP ASPIRIN*., # 60 tablet, 11 Refills, Maintenance, 07/13/23 5:16:00 EST, [facility] 18096, 176.1, cm, 06/25/23 8:54:00 EST, Height, 146.1, kg, 08/29/22 15:57:00 EST, Dry Weight Start Date: 07/13/23 Status: Ordered gabapentin 100 mg oral capsule 2, capsule, By Mouth, Daily at bedtime, # 180 capsule, Refills 1, Maintenance, 10/05/23 12:18:00 EST, Route to Pharmacy Electronically, [facility] 23502, 176.1, cm, 09/20/23 14:12:00 EST, Height, 146.1, kg, 08/29/22 15:57:00 EST, Dry Weight Start Date: 10/05/23 Status: Ordered Keppra 750 mg oral tablet 1 tablet = 750 mg, By Mouth, 2 times a day, # 60 tablet, 6 Refills, Maintenance, 01/10/24 8:04:00 EDT, Tablet, [facility]/pharmacy #[id number], Partial fill upon patient request if the prescription is for a schedule II opioid drug., 178, cm, 01/10/24 7:18:00 EDT,... Start Date: 01/10/24 Stop Date: 08/07/24 Status: Ordered Metoprolol Succinate ER 100 mg oral tablet, extended release 1 tablet, By Mouth, Daily, # 90 tablet, 3 Refills, Maintenance, 07/09/23 13:03:00 EST, [facility] 72136, 176.1, cm, 06/25/23 8:54:00 EST, Height, 146.1, [...] 01/10/24 8:07:00 EDT, Route to Pharmacy Electronically, [facility]/pharmacy #[id number], Partialfill upon patient request if the prescription is fo... Start Date: 01/10/24 Stop Date: 08/07/24 Status: Ordered spironolactone 25 mg oral tablet 1, tablet, By Mouth, Daily, # 90 tablet, Refills 1, Maintenance, 10/01/23 13:00:00 EST, Route to Pharmacy Electronically, [facility], 176.1, cm, 09/20/23 14:12:00 EST, Height, 146.1, kg, 08/29/22 15:57:00 EST, Dry Weight Start Date: 10/01/23 Status: Ordered Tadalafil (Eqv-Cialis) 20 mg oral tablet 1 tablet, By Mouth, Daily, PRN NEEDED FOR ERECTILE DYSFUNCTION, # 5 tablet, 2 Refills, Maintenance, 01/24/24 11:18:00 EDT, [facility], 178, cm, 01/20/24 12:42:00 EDT, Height, 159, kg, 11/30/23 18:35:00 EDT, Dry Weight Start Date: 01/24/24 Status: Ordered torsemide 20 mg oral tablet 1 tablet, By Mouth, 2 times a day, # 180 tablet, 3 Refills, Maintenance, 11/04/23 7:29:00 EDT, [facility] 29[facility], 176, cm, 10/25/23 12:56:00 EDT, Height, 146.1, kg, 08/29/22 15:57:00 EST, Dry Weight Start Date: 11/04/23 Status: Ordered valsartan 160 mg oral tablet 160 mg, 1, tablet, By Mouth, 2 times a day, # 180 tablet, Refills 4, Tot. Refills 4, Maintenance, 07/09/23 13:10:00 EST, Route to Pharmacy Electronically, [facility]/pharmacy #[id number], Partial fill upon patient request if the [...] Care Member Role: PCP Address: Address: [address] [place] [id number] Name: Godwin Perkins RN Position: [facility] RN Member Role: Primary Care Nurse Name: Ron Babb RN Position: [facility] RN Member Role: Primary Care Nurse Care Team Related Persons Name: CECY NGUYEN Address: home [address] [place] [address] Name: LEIDY NGUYEN JR Address: [address] [place] [address]
--- OUTSIDE RECORDS SUMMARY | 2024-05-03 22:14 | XMS_ITS | Continuity of Care Document ---
Author Organization [facility] Address [address] [place] [address]- Care Team Providers Care Wheel Molder Name Role Phone Merlene BYRNE, Cortez Kendall Primary Care Physician Encounter [facility] Date(s): 08/11/22 - 09/10/22 [facility] [address] [place] [address]- [place] Allergies, Adverse Reactions, Alerts Substance Reaction Severity Status lisinopril Active penicillins Rash Active Immunizations Given and Recorded Vaccine Date Status Refusal Reason tetanus/diphtheria/pertussis, acel(Tdap) 1 12/20/17 Given Not Given Vaccine Date Status Refusal Reason Influenza Virus Vaccine (oldterm) 06/21/19 Not Giv en Patient Refuses 1Result Comment: [12/20/2017] [facility] 29407-694-64 Medications Acetaminophen Daily, 0 Refills, Maintenance, 09/10/22 8:02:00 EST, Partial fill upon patient request if the prescription is for a schedule II opioid drug. Start Date: 09/10/22 Status: Ordered amiodarone 200 mg oral tablet 200 mg, 1, tablet, By Mouth, Daily, # 30 tablet, Refills 0, Tot. Refills 0, Maintenance, 09/05/22 9:34:00 EST, Route to Pharmacy Electronically, [facility], Partial fill upon patient [...] 0 Refills, Maintenance, 09/05/22 9:49:00 EST, Tablet, [facility] Partial fill upon patient request if the prescription is for a scheduleII opioid drug., 177.8, cm, 09/05/22 8:50:00 EST, H... Start Date: 09/05/22 Status: Ordered doxazosin 4 mg oral tablet 1 tablet, By Mouth, Daily, # 90 tablet, 1 Refills, Maintenance, 07/05/22 16:17:00 EST, [facility]/pharmacy#[id number], 178, cm, 07/01/22 7:55:00 EST, Height Start Date: 07/05/22 Status: Ordered Eliquis 5 mg oral tablet 1 tablet = 5 mg, By Mouth, 2 times a day, # 60 tablet, 5 Refills, Maintenance, 07/01/22 9:02:00 EST, Tablet, [id number] Partial fill upon patient request if the prescription is for a schedule II opioid drug., 178, cm, 07/01/22 7:55:00 EST, He... Start Date: 07/01/22 Status: Ordered gabapentin 100 mg oral capsule 2, capsule, By Mouth, Daily at bedtime, # 60 capsule, Refills 2, Maintenance, 06/18/22 11:52:00 EST, Route to Pharmacy Electronically, [facility] 75558, 176.4, cm, 05/15/22 11:35:00 EDT, Height Start Date: 06/18/22 Status: Ordered metoprolol succinate 100 mg oral capsule, extended release 1 capsule = 100 mg, By Mouth, Daily, # 30 capsule, 0 Refills, Maintenance, 09/05/22 9:33:00 EST, ERCapsule, [facility], Partial fill upon patient request if [...] 09/05/22 9:32:00 EST, Route to Pharmacy Electronically, [facility], Partial fill upon patient request if the prescription is for a schedule II opioid... Start Date: 09/05/22 Status: Ordered Tadalafil (Eqv-Cialis) 20 mg oral tablet 1 tablet, By Mouth, Daily, PRN NEEDED FOR ERECTILE DYSFUNCTION, # 5 tablet, 2 Refills, Maintenance, 08/11/22 9:25:00 EST, [facility], 178, cm, 08/07/22 15:14:00 EST, Height, 147, kg, 08/04/2217:07:00 EST, Dry Weight Start Date: 08/11/22 Status: Ordered torsemide 20 mg oral tablet 1 tablet = 20 mg, By Mouth, 2 times a day, # 60 tablet, 0 Refills, Maintenance, 09/05/22 9:32:00 EST, Tablet, [facility], Partial fill upon patient request if the prescription is for a schedule II opioid drug., 177.8, cm, 09/05/22 8:50:0... Start Date: 09/05/22 Status: Ordered valsartan 40 mg oral tablet 80 mg, 2, tablet, By Mouth, 2 times a day, # 120 tablet, Refills 0, Tot. Refills 0, Maintenance, 09/05/22 9:33:00 EST, Route to Pharmacy Electronically, [facility], Partial fill upon patient [...] Status Never smoker entered on: 8/3/17 Sex Patient Care team information Care Team Personnel Name: Lázaro Garcia RN Position: [facility] RN Member Role: Primary Care Nurse Name: Alanis Harris Position: [facility] RN Supv Member Role: Primary Care Nurse Name: Brittani Anguiano RN Position: S RN Member Role: Primary Care Nurse Name: Cortez Blunt MD Position: [facility] Primary Care Physician Member Role: PCP Address: Address: [address] [place] [address]- Name: Edna Kelly RN Position: [facility] RN Member Role: Primary Care Nurse Name: Ron Babb RN Position: [facility] RN Member Role: Primary Care Nurse Care Team Related Persons Name: CECY NGUYEN Address: [address] [place] [address] Name: LEIDY NGUYEN JR Address: [address] [place] [address]
--- OUTSIDE RECORDS SUMMARY | 2024-05-03 22:14 | XMS_ITS | Continuity of Care Document ---
Author Organization [facility] lt Address [address] [place] [address]- Care Team Providers Care Destination Coordinator Name Role Phone Merlene BYRNE, Cortez Kendall Primary Care Physician Encounter [facility] Date(s): 11/08/19 - 11/18/19 [facility] Adult [address] [place] [address]- [facility] Attending Physician: Admshannen, All8 Admitting Physician: AdmtrUri Referring Physician: Admtr, Ar8 Allergies, Adverse Reactions, Alerts Substance Reaction Severity Status penicillins Rash Active Immunizations Given and Recorded Vaccine Date Status Refusal Reason tetanus/diphtheria/pertussis, acel(Tdap) 1 12/20/17 Given Not Given Vaccine Date Status Refusal Reason Influenza Virus Vaccine (oldterm) 06/21/19 Not Giv en Patient Refuses 1Result Comment: [12/20/2017] [facility] 28975-503-53 Medications amLODIPine 10 mg oral tablet 10 mg, 1, tablet, By Mouth, Daily, # 30 tablet, Refills 3, Tot. Refills 3, Soft Stop, 10/26/19 8:30:00 EDT, Route to Pharmacy Electronically, [facility]/pharmacy #[id number], 176.4, cm, 10/19/19 6:57:00 EDT, Height [...] 11/08/19 15:58:00 EDT, Route to Pharmacy Electronically, [facility]/pharmacy #[id number], 176.4, cm, 10/19/19 6:57:00 EDT, Height Start Date: 11/08/19 Status: Ordered doxazosin 4 mg oral tablet 1 tablet, By Mouth, Daily, # 30 tablet, 5 Refills, Maintenance, 08/23/19 16:11:00 EST, [facility], 176.4, cm, 06/21/19 15:38:00 EST, Height Start Date: 08/23/19 Status: Ordered irbesartan 150 mg oral tablet 1 tablet, By Mouth, Daily, # 30 tablet, 5 Refills, Maintenance, 08/23/19 16:11:00 EST, [facility], 176.4, cm, 06/21/19 15:38:00 EST, Height Start Date: 08/23/19 Status: Ordered Problem List Condition Effective Dates Status Health Status Inform ant Benign essential hypertension(Confirmed) Active Sleep related hypoventilation/hypoxemia in other disease(Confirmed) Active Diverticulosis(Confirmed) 1 Active Hemorrhoids(Confirmed) Active Bilateral knee pain(Confirmed) Active Migraine(Confirmed) Active Obesity(Confirmed) Active JR (obstructive sleep apnea)(Confirmed) Active 1PER 03/02/14 COLONOSCOPY-DR ANABELLA BERNSTEIN-KYLIE Procedures Procedure Date Related Diagnosis Body Site Status Polysomnogram 1 02/26/15 Completed Transthoracic echocardiography 2 01/22/15 Completed Colonoscopy 3 03/02/14 Com[facility]-CPAP AT PRESSURE OF 13 CM H2O, USING A LARGE GUNDERSON/PAYKEL SIMPLUS FULL FACE MASK AND HEATED HUMIDIFICATION. DX [facility]NORMAL LEFT VENTRICULAR SIZE AND SYSTOLIC FX. MODERATE CONCENTRIC LEFT VENTRICULAR HYPERTROPHY. LEFT VENTRICULAR EJECTION FRACTION IS 60-65%. E-A REVERSAL CONSISTENT WITH MILD DIASTOLIC RELAXATION ABNORMALITY. 3Repeat in 10 years Social History Social History Type Response Smoking Status Never smoker entered on: 03/11/17 Sex
--- OUTSIDE RECORDS SUMMARY | 2024-05-03 22:14 | XMS_ITS | Continuity of Care Document ---
Author Organization [facility] [place] [address] [address]- Care Team Providers Care Drafter Mechanical Name Role Phone Merlene BYRNE, Cortez Kendall Primary Care Physician [id number] Date(s[facility] - 11/30/22 [facility] [address] [address]- Attending Physician: Crow Sosa DO Admitting Physician: Crow Sosa DO Referring Physician: Crow Sosa DO Allergies, Adverse Reactions, Alerts Substance Reaction Severity Status lisinopril Active penicillins Rash Active Immunizations Given and Recorded Vaccine Date Status Refusal Reason tetanus/diphtheria/pertussis, acel(Tdap) 1 12/20/17 Given Not Given Vaccine Date Status Refusal Reason Influenza Virus Vaccine (oldterm) 06/21/19 Not Giv en Patient Refuses 1Result Comment: [12/20/2017] [facility] 17630-167-89 Medications Acetaminophen Daily, 0 Refills, Maintenance, 09/10/22 8:02:00 EST, Partial fill upon patient request if the prescription is for a schedule II opioid drug. Start Date: 09/10/22 Status: Ordered amiodarone 200 mg oral tablet 200 mg, 1, tablet, By Mouth, Daily, # 90 tablet, Refills 0, Tot. Refills 0, Maintenance, 10/06/22 9:50:00 EST, Route to Pharmacy Electronically, [facility]/pharmacy #[id number], Partial fill upon patient request if the prescription is for a schedule II opioid drug... Start Date: 10/06/22 Stop Date: 01/04/23 Status: Ordered amLODIPine 10 mg oral tablet 1 tablet, By Mouth, Daily, # 90 tablet, 3 Refills, Maintenance, 09/29/22 6:28:00 EST, [facility], 177.8, cm, 09/10/22 8:00:00 EST, Height, 146.1, [...] 0 Refills, Maintenance, 10/06/22 9:48:00 EST, Tablet, [facility]/pharmacy #[id number], Partial fill upon [...] Refills, Maintenance, 07/01/22 9:02:00 EST, Tablet, [facility]/pharmacy #[id number], Partial fill upon patient request if the prescription is for a schedule II opioid drug., 178, cm, 07/01/22 7:55:00 EST, He... Start Date: 07/01/22 Status: Ordered gabapentin 100 mg oral capsule 2, capsule, By Mouth, Daily at bedtime, # 60 capsule, Refills 2, Maintenance, 09/28/22 14:04:00 EST, Route to Pharmacy Electronically, [facility] [address]183, 177.8, cm, 09/10/22 8:00:00 EST, Height, 146.1,kg, 08/29/22 15:57:00 EST, Dry Weight Start Date: 09/28/22 Status: Ordered Metoprolol Succinate ER 100 mg oral tablet, extended release See Instructions, TAKE 1 TABLET BY MOUTH EVERY DAY, # 90 tablet, 1 Refills, Maintenance, 11/09/22 9:12:00 EDT, [facility]/pharmacy #[id number], 176.1, cm, 10/21/22 [...] 11/09/22 9:07:00 EDT, Route to Pharmacy Electronically, [facility]/pharmacy #[id number], 176.1, cm, 10/21/22 11:09:00 EDT, Height, 146.1, kg, 08/29/22 15:57:00 EST, Dry Weight Start Date: 11/09/22 Status: Ordered Tadalafil (Eqv-Cialis) 20 mg oral tablet 1 tablet, By Mouth, Daily, PRN NEEDED FOR ERECTILE DYSFUNCTION, # 5 tablet, 2 Refills, Maintenance, 08/11/22 9:25:00 EST, [facility], 178, cm, 08/07/22 15:14:00 EST, Height, 147, [...] 0 Refills, Maintenance, 10/06/22 9:48:00 EST, Tablet, [facility]/pharmacy #[id number], Partial fill upon [...] 13:24:00 EDT, Route to Pharmacy Electronically, [facility]/pharmacy #[id number], Partial fill upon [...] Status Never smoker entered on: 03/11/17 Sex US Heart * Event Display: Echocardiogram - Complete Authored Date: [id number] Transthoracic Echocardiography Report (TTE) Patient Demographics Patient Name LEIDY NGUYEN Date of Study 11/23/2022 Corporate Gender Male [facility] Race Ethnicity Date of 1960 Height: 68.9 inches Age 62 year(s) Weight: 324.07 pounds Accession Number [id number] BSA: 2.53 m2 Room Number BMI: 48 kg/m2 Referring Physician Crow Sosa DO Interpreting Physician Angelica Jim MD Channel Development Manager Timmy Gomez Indications Heart failure. Clinical History Hypertension. Atrial fibrillation. JR Cardiomyopathy. Obesity. Study Data Type of Study TTE procedure:Echo Complete-Doppler, Colorflow, M-Mode. Study Date11/23/2022 Start Time: 04:06 PM Study Location: [facility] Echo Study Status: Echo lab Patient Status: Routine Technical Quality: Technically difficult due to body habitus. EKG: Within normal limits HR: 51 bpm Allergies - Penicillins. - Lisinopril. 2D Measurements LV Diastolic Dimension: 5.9 cm LV Systolic Dimension: 4.7 cm LV Septum Diastolic: 1.1 cm LV PW Diastolic: 1.1 cm AO Root Dimension: 3.6 cm LA Dimension: 5 cm LA ESV (BP):97.3 ml LVOT Stroke Volume: 88.04 ml LA ESV Index: 38 ml/m2 Stroke Volume Index34.8 ml/m2 LVOT: 2.3 cm Cardiac Index:1.77 l/min/m2 Ascending Aorta:3.7 cm Doppler Measurements AV Peak Velocity: 164 cm/s MV Peak E-Wave: 114 cm/s AV Peak Gradient: 10.76 mmHg MV Peak A-Wave: 42.8 cm/s AV Mean Gradient: 6 mmHg MV E/A Ratio: 2.66 AV VTI:40.1 cm MV P1/2t: 82 msec LVOT Peak Velocity: 87.5 cm/s LVOT VTI21.2 cm MV Deceleration Time: 279 msec AV Area (Continuity):2.2 cm2 MV Area (PHT): 2.68 cm2 TR Velocity:223 cm/s TR Gradient:19.89 mmHg E' Septal Velocity: 7.62 cm/s E' Lateral Velocity: 11.2 cm/s E/Med E':14.11339 E/Lat E':10.75473 Cardiac Anatomy Left Ventricle/Interventricular Septum The left ventricular size is dilated. The left ventricular wall thickness is upper normal. Indeterminate diastolic function. The left ventricular ejection fraction is 50-55 %. There are no definite regional wall motion abnormalities. Left Atrium/Interatrial Septum The left atrium is mildly dilated. Aortic Valve The aortic valve is trileaflet and normal in structure and function. There is no aortic stenosis or insufficiency. Mitral Valve The mitral valve appears normal . There is trace to mild mitral regurgitation. There is no significant mitral stenosis. Aorta There is mild dilation of the ascending aorta . The aortic root is normal in size. Right Ventricle The right ventricle is normal in size and function. Right Atrium The right atrium is normal in size. Pulmonic Valve The pulmonic valve is functionally normal. Tricuspid Valve The tricuspid valve is normal in structure and function. There is trace regurgitation. Pumonary Artery An accurate pulmonary artery pressure could not be obtained. Venous Structures The inferior vena cava appears normal. Pericardium/Extracardiac There is no pericardial effusion. Summary The left ventricular size is dilated. The left ventricular wall thickness is upper normal. Indeterminate diastolic function. The left ventricular ejection fraction is 50-55 %. There are no definite regional wall motion abnormalities. There is mild dilation of the ascending aorta . The aortic root is normal in size. The right ventricle is normal in size and function. Comparison Comparison is made to the study of September 01, 2022. Mild improvement in ejection fraction. Signature * Event Display: Echocardiogram - Complete Authored Date: [id number] Cardiology Outpatient Note * Leydi Wayne RN: PERFORM, SIGN, VERIFY Event Display: Cardiology Note Office Authored Date: Patient: LEIDY NGUYEN Age: 62 years Sex: Male : 1960 Associated Diagnoses: None Author: Leydi Wayne RN Definity administration requested by [employer]. Procedure, allergies and contraindications were reviewed with patient. Patient agreed to procedure. Definity Lot#[id number]. Total amount diluted Definity administered was 3 mL. Administered into existing left arm peripheral IV without incident per licensed psychiatric technician. 5mL pre and post administration NS flush administered. Patient tolerated without incident. MAEVE Holley [facility] Patient Care team information Care Team Personnel Name: Lázaro Garcia RN Position: [facility] RN Member Role: Primary Care Nurse Name: Alanis Harris Position: [facility] RN Supv Member Role: Primary Care Nurse Name: Brittani Anguiano RN Position: [facility] SN RN Member Role: Primary Care Nurse Name: Cortez Blunt MD Position: [facility] Primary Care Physician Member Role: PCP Address: Address: [address] [place] [address]- Name: Ron Babb RN Position: [facility] RN Member Role: Primary Care Nurse Care Team Related Persons Name: CECY NGUYEN Address: [address] [place] [address] Name: LEIDY NGUYEN JR Address: [address] [place] [address]
--- OUTSIDE RECORDS SUMMARY | 2024-05-03 22:14 | XMS_ITS | Continuity of Care Document ---
Author Organization [facility] Address [address] [place] [address]- Care Team Providers Care Director Of Audiology Name Role Phone Merlene BYRNE, Cortez Kendall Primary Care Physician [phone] Encounter [facility] Date(s): 06/04/23 - 07/04/23 [facility] Adult [address] [place] [address]- Allergies, Adverse Reactions, Alerts Substance Reaction Severity Status lisinopril cough Active penicillins Rash Active Immunizations Given and Recorded Vaccine Date Status Refusal Reason tetanus/diphtheria/pertussis, acel(Tdap) 1 12/20/17 Given 1Result Comment: [12/20/2017] [facility] 47068-271-05 Medications Acetaminophen Daily, 0 Refills, Maintenance, 09/10/22 [...] Refills, Maintenance, 12/17/22 11:10:00 EDT, [facility], 176.1, cm, 10/21/22 11:09:00 EDT, Height, 146.1, [...] 4 Refills, Maintenance, 06/25/23 9:09:00 EST, Tablet, [facility]/pharmacy #[id number], [...] 05/10/23 13:26:00 EDT, Route to Pharmacy Electronically, [facility]/pharmacy #[id number], 176.1, cm, 05/10/23 13:05:00 EDT, Height, 146.1, kg, 08/29/22 15:57:00 EST, Dry... Start Date: 05/10/23 Status: Ordered LORazepam 2 mg oral tablet 1 tablet = 2 mg, By Mouth, Once, one hour prior to procedure, # 1 tablet, 0 Refills, Soft Stop, 06/10/23 5:16:00 EDT, Tablet, [facility]/pharmacy #[id number], [...] 06/14/23 8:05:00 EST, Route to Pharmacy Electronically, [facility]208, 176.1, cm, 05/13/23 9:04:00 EDT, Height, 146.1, kg, 08/29/22 15:57:00 EST, Dry Weight Start Date: 06/14/23 Status: Ordered Tadalafil (Eqv-Cialis) 20 mg oral tablet 1 tablet, By Mouth, Daily, PRN NEEDED FOR ERECTILE DYSFUNCTION, # 5 tablet, 2 Refills, Maintenance, 06/13/23 18:58:00 EST, [facility] 46094, 176.1, cm, 05/13/23 9:04:00 EDT, Height, 146.1, [...] to Pharmacy Electronically, [facility]/pharmacy #[id number], Partial fill upon patient request if the [...] Care Team Personnel Name: Alanis Harris [facility] RN Supv Member Role: Primary Care Nurse Name: Brittani Anguiano RN [facility] RN Member Role: Primary Care Nurse Name: Cortez Blunt MD Position: [facility] Physician - Primary Care Member Role: PCP Address: Address: [address] [place] [address]- Name: Ron Babb RN [facility] RN Member Role: Primary Care Nurse Care Team Related Persons Name: CECY NGUYEN Address: home [address] [place] [address] Name: LEIDY NGUYEN JR Address: [address] [place] [address]
--- OUTSIDE RECORDS SUMMARY | 2024-05-03 22:14 | XMS_ITS | Continuity of Care Document ---
Author Organization [facility] Address [address] [facility], [address] d Floor, [address] [place] [address]- Care Team Providers Care Bowling Ball Marker Name Role Phone Merlene BYRNE, Cortez Kendall Primary Care Physician [phone] Encounter [facility] Date(s): 01/06/24 - 02/05/24 [facility] [address], [address] [place] [address] Allergies, Adverse Reactions, Alerts Substance Reaction Severity Status lisinopril cough Active penicillins Rash Active Immunizations Given and Recorded Vaccine Date Status Refusal Reason tetanus/diphtheria/pertussis, acel(Tdap) 1 12/20/17 Given 1Result Comment: [12/20/2017] [facility] 11270-933-36 Medications doxazosin 4 mg oral tablet 1 tablet, By Mouth, Daily, # 90 tablet, 3 Refills, Maintenance, 07/13/23 5:16:00 EST, [facility], 176.1, cm, 06/25/23 8:54:00 EST, Height, 146.1, kg, 08/29/22 15:57:00 EST, Dry Weight Start Date: 07/13/23 Status: Ordered Eliquis 5 mg oral tablet 1 tablet, By Mouth, 2 times a day, *STOP ASPIRIN*., # 60 tablet, 11 Refills, Maintenance, 07/13/23 5:16:00 EST, [facility] 66762, 176.1, cm, 06/25/23 8:54:00 EST, Height, 146.1, kg, 08/29/22 15:57:00 EST, Dry Weight Start Date: 07/13/23 Status: Ordered gabapentin 100 mg oral capsule 2, capsule, By Mouth, Daily at bedtime, # 180 capsule, Refills 1, Maintenance, 10/05/23 12:18:00 EST, Route to Pharmacy Electronically, [facility], 176.1, cm, 09/20/23 14:12:00 EST, Height, 146.1, kg, 08/29/22 15:57:00 EST, Dry Weight Start Date: 10/05/23 Status: Ordered Keppra 750 mg oral tablet 1 tablet = 750 mg, By Mouth, 2 times a day, # 60 tablet, 6 Refills, Maintenance, 01/10/24 8:04:00 EDT, Tablet, [facility]/pharmacy #[id number], Partial fill upon patient request if the prescription is for a schedule II opioid drug., 178, cm, 01/10/24 7:18:00 EDT,... Start Date: 01/10/24 Stop Date: 08/07/24 Status: Ordered Metoprolol Succinate ER 100 mg oral tablet, extended release 1 tablet, By Mouth, Daily, # 90 tablet, 3 Refills, Maintenance, 07/09/23 13:03:00 EST, [facility] 73187, 176.1, cm, 06/25/23 8:54:00 EST, Height, 146.1, [...] 01/10/24 8:07:00 EDT, Route to Pharmacy Electronically, [facility]/pharmacy #[id number], Partialfill upon patient request if the prescription is fo... Start Date: 01/10/24 Stop Date: 08/07/24 Status: Ordered spironolactone 25 mg oral tablet 1, tablet, By Mouth, Daily, # 90 tablet, Refills 1, Maintenance, 10/01/23 13:00:00 EST, Route to Pharmacy Electronically, [facility] 10271, 176.1, cm, 09/20/23 14:12:00 EST, Height, 146.1, kg, 08/29/22 15:57:00 EST, Dry Weight Start Date: 10/01/23 Status: Ordered Tadalafil (Eqv-Cialis) 20 mg oral tablet 1 tablet, By Mouth, Daily, PRN NEEDED FOR ERECTILE DYSFUNCTION, # 5 tablet, 2 Refills, Maintenance, 01/24/24 11:18:00 EDT, [facility], 178, cm, 01/20/24 12:42:00 EDT, Height, 159, kg, 11/30/23 18:35:00 EDT, Dry Weight Start Date: 01/24/24 Status: Ordered torsemide 20 mg oral tablet 1 tablet, By Mouth, 2 times a day, # 180 tablet, 3 Refills, Maintenance, 11/04/23 7:29:00 EDT, [facility], 176, cm, 10/25/23 12:56:00 EDT, Height, 146.1, kg, 08/29/22 15:57:00 EST, Dry Weight Start Date: 11/04/23 Status: Ordered valsartan 160 mg oral tablet 160 mg, 1, tablet, By Mouth, 2 times a day, # 180 tablet, Refills 4, Tot. Refills 4, Maintenance, 07/09/23 13:10:00 EST, Route to Pharmacy Electronically, [facility]/pharmacy #[id number], Partial fill upon patient request if the [...] Care Team Personnel Name: Alanis Harris Position: [facility] RN Supv Member Role: Primary Care Nurse Name: Brittani Anguiano RN Position: [facility] SN RN Member Role: Primary Care Nurse Name: Sherrell Yan RN Position: S RN Member Role: Primary Care Nurse Name: Cortez Blunt MD Position: [facility] Physician - Primary Care Member Role: PCP Address: Address: [address] [place] [address]- Name: Godwin Perkins RN Position: [facility] RN Member Role: Primary Care Nurse Name: Ron Babb RN Position: [facility] RN Member Role: Primary Care Nurse Care Team Related Persons Name: CECY NGUYEN Address: [address] [place] [address] Name: LEIDY NGUYEN JR Address: [address] [place] [address]
--- OUTSIDE RECORDS SUMMARY | 2024-05-03 22:14 | XMS_ITS | Continuity of Care Document ---
Author Organization [facility] Address [address] [place] [address]- Care Team Providers Care Mobile Heavy Equipment Mechanic Name Role Phone Merlene BYRNE, Cortez Kendall Primary Care Physician [place] [facility](s): 07/06/22 - 08/05/22 [facility] [address] [place] [address] [place] Allergies, Adverse Reactions, Alerts Substance Reaction Severity Status lisinopril Active penicillins Rash Active Immunizations Given and Recorded Vaccine Date Status Refusal Reason tetanus/diphtheria/pertussis, acel(Tdap) 1 12/20/17 Given Not Given Vaccine Date Status Refusal Reason Influenza Virus Vaccine (oldterm) 06/21/19 Not Giv en Patient Refuses 1Result Comment: [12/20/2017] [facility] 60872-418-22 Medications aspirin 81 mg oral tablet 1 [...] 07/28/22 10:21:00 EST, Route to Pharmacy Electronically, [facility]/pharmacy #[id number], Partial fill upon patientrequest if the prescription is for a schedule II op... Start Date: 07/28/22 Stop Date: 01/24/23 Status: Ordered gabapentin 100 mg oral capsule 2, capsule, By Mouth, Daily at bedtime, # 60 capsule, Refills 2, Maintenance, 06/18/22 11:52:00 EST, Route to Pharmacy Electronically, [facility], 176.4, cm, 05/15/22 11:35:00 EDT, Height Start Date: 06/18/22 Status: Ordered Lasix 40 mg oral tablet 40 mg, 1, tablet, By Mouth, Daily, # 30 tablet, Refills 5, Tot. Refills 5, Maintenance, 07/28/22 10:21:00 EST, Route to Pharmacy Electronically, [facility]/pharmacy #[id number], Partial fill upon patient request if the prescription is for a schedule II opioid drug... Start Date: 07/28/22 Stop Date: 01/24/23 Status: Ordered metoprolol 100 mg oral tablet, extended release 100 mg, 1, tablet, By Mouth, Daily, # 30 tablet, Refills 5, Tot. Refills 5, Maintenance, 07/28/22 10:22:00 EST, Route to Pharmacy Electronically, [facility]/pharmacy #[id number], Partial fill upon patient requestif the [...] Refills, Maintenance, 04/12/22 10:29:00 EDT, [facility], 176.4, cm, 02/02/22 11:18:00 EDT, Height Start [...] Care Physician Member Role: PCP Address: Address: [address] [place] [address] Name: Edna Kelly RN Position: S RN Member Role: Primary Care Nurse Name: Ron Babb RN Position: S RN Member Role: Primary Care Nurse Care Team Related Persons Name: CECY NGUYEN Address: [address] [place] [address] Name: LEIDY NGUYEN JR Address: [address] [place] [address]
--- OUTSIDE RECORDS SUMMARY | 2024-05-03 22:14 | XMS_ITS | Continuity of Care Document ---
Author Organization [facility] Address [address] [place] [address]- Care Team Providers Care Refuse Collector Name Role Phone Merlene BYRNE, Cortez Kendall Primary Care Physician Encounter [facility] Date(s): 05/13/22 - 06/12/22 [facility] [address] [place] [address]- Allergies, Adverse Reactions, Alerts Substance Reaction Severity Status lisinopril Active penicillins Rash Active Immunizations Given and Recorded Vaccine Date Status Refusal Reason tetanus/diphtheria/pertussis, acel(Tdap) 1 12/20/17 Given Not Given Vaccine Date Status Refusal Reason Influenza Virus Vaccine (oldterm) 06/21/19 Not Giv en Patient Refuses 1Result Comment: [12/20/2017] [facility] 20426-519-12 Medications amLODIPine 10 mg oral tablet 1 tablet, By Mouth, Daily, # 90 tablet, 1 Refills, Maintenance, 04/12/22 10:29:00 EDT, [facility], 176.4, cm, 02/02/22 11:18:00 EDT, Height Start Date: 04/12/22 Status: Ordered aspirin 81 mg oral tablet 1 tablet = 81 mg, By Mouth, Daily, # 30 tablet, 0 Refills, Maintenance, 03/11/17 15:49:45, Tablet Start Date: 03/11/17 Status: Ordered doxazosin 4 mg oral tablet 1 tablet, By Mouth, Daily, # 90 tablet, 1 Refills, [facility], 176.4, cm, 08/15/21 9:23:00 EST, Height Start Date: 01/17/22 Status: Ordered gabapentin 100 mg oral capsule 2, capsule, By Mouth, Daily at bedtime, # 60 capsule, Refills 2, Route to Pharmacy Electronically, [facility], 176.4, cm, 02/02/22 11:18:00 EDT, Height Start Date: 02/26/22 Status: Ordered Tadalafil (Eqv-Cialis) 20 mg oral tablet 1 tablet, By Mouth, Daily, PRN NEEDED FOR ERECTILE DYSFUNCTION, # 5 tablet, 2 Refills, Maintenance, 04/12/22 10:29:00 EDT, [facility] 177[facility], 176.4, cm, 02/02/22 11:18:00 EDT, Height Start [...] Name: Merlene BYRNE, Cortez Kendall Address: Address: [address] [place] [address]
--- OUTSIDE RECORDS SUMMARY | 2024-05-03 22:14 | XMS_ITS | Continuity of Care Document ---
Author Organization [facility] Address [address] [facility], [address] Floor, [address] [place] [address]- Care Team Providers Care Cabinetmaker Helper Name Role Phone Merlene BYRNE, Cortez Kendall Primary Care Physician Encounter [facility] [place] Date(s): 05/27/23 - 06/26/23 [facility] [address], [address] Floor, [address] [place] [id number] Attending Physician: Admshannen, Uri Admitting Physician: AdmtrUri Referring Physician: Admtr, Ar8 Allergies, Adverse Reactions, Alerts Substance Reaction Severity Status lisinopril cough Active penicillins Rash Active Immunizations Given and Recorded Vaccine Date Status Refusal Reason tetanus/diphtheria/pertussis, acel(Tdap) 1 12/20/17 Given 1Result Comment: [12/20/2017] [facility] 90662-444-28 Medications Acetaminophen Daily, 0 Refills, Maintenance, 09/10/22 [...] Refills, Maintenance, 12/17/22 11:10:00 EDT, [facility], 176.1, cm, 10/21/22 11:09:00 EDT, Height, 146.1, kg, 08/29/22 15:57:00 EST, Dry Weight Start Date: 12/17/22 Status: Ordered Eliquis 5 mg oral tablet 1 tablet = 5 mg, By Mouth, 2 times a day, # 60 tablet, 5 Refills, Maintenance, 07/01/22 9:02:00 EST, Tablet, [facility]/pharmacy #2071, Partial fill upon patient request if the prescription is for a schedule II opioid drug., 178, cm, 07/01/22 7:55:00 EST, He... Start Date: 07/01/22 Status: Ordered Farxiga 10 mg oral tablet 1 tablet = 10 mg, By Mouth, Daily, # 90 tablet, 4 Refills, Maintenance, 06/25/23 9:09:00 EST, Tablet, [facility]/pharmacy #2071, Partial fill upon patient request if the prescription is for a schedule II opioid drug., 176.1, cm, 06/25/23 8:54:00 EST, Height,... Start Date: 06/25/23 Stop Date: 09/17/24 Status: Ordered gabapentin 100 mg oral capsule 2, capsule, By Mouth, Daily at bedtime, # 180 capsule, Refills 1, Tot. Refills 1, Maintenance, 05/10/23 13:26:00 EDT, Route to Pharmacy Electronically, [facility]/pharmacy #207, 176.1, cm, 05/10/23 13:05:00 EDT, Height, 146.1, kg, 08/29/22 15:57:00 EST, Dry... Start Date: 05/10/23 Status: Ordered LORazepam 2 mg oral tablet 1 tablet = 2 mg, By Mouth, Once, one hour prior to procedure, # 1 tablet, 0 Refills, Soft Stop, 06/10/23 5:16:00 EDT, Tablet, [facility]/pharmacy #[id number], Partial fill upon patient request if the prescriptionis for a schedule II opioid drug., 176.1, cm, 05/13... Start Date: 06/10/23 Status: Ordered Metoprolol Succinate ER 100 mg oral tablet, extended release See Instructions, TAKE 1 TABLET BY MOUTH EVERY DAY, # 90 tablet, 1 Refills, Maintenance, 11/09/22 9:12:00 EDT, [facility]/pharmacy #2071, 176.1, cm, 10/21/22 11:09:00 EDT, Height, [...] 06/14/23 8:05:00 EST, Route to Pharmacy Electronically, [facility] 18717, 176.1, cm, 05/13/23 9:04:00 EDT, Height, 146.1, kg, 08/29/22 15:57:00 EST, Dry Weight Start Date: 06/14/23 Status: Ordered Tadalafil (Eqv-Cialis) 20 mg oral tablet 1 tablet, By Mouth, Daily, PRN NEEDED FOR ERECTILE DYSFUNCTION, # 5 tablet, 2 Refills, Maintenance, 06/13/23 18:58:00 EST, [facility] 23938, 176.1, cm, 05/13/23 9:04:00 EDT, Height, 146.1, [...] Refills, Maintenance, 12/17/22 6:36:00 EDT, Tablet, [facility]/pharmacy #[id number], Partial fill upon patient request if the prescription is for a schedule II opioid drug., 176.1, cm, 10/21/22 11:09:00 ED... Start Date: 12/17/22 Stop Date: 12/12/23 Status: Ordered valsartan 160 mg oral tablet 160 mg, 1, tablet, By Mouth, 2 times a day, # 180 tablet, Refills 4, Tot. Refills 4, Maintenance, 10/19/22 13:24:00 EDT, Route to Pharmacy Electronically, [facility]/pharmacy #[id number], Partial fill upon patient request if the [...] Care Team Personnel Name: Alanis Harris Position: [facility] RN Supv Member Role: Primary Care Nurse Name: Brittani Anguiano RN Position: [facility] SN RN Member Role: Primary Care Nurse Name: Cortez Blunt MD Position: [facility] Physician - Primary Care Member Role: PCP Address: Address: [address] [place] [address]- Name: Ron Babb RN Position: [facility] RN Member Role: Primary Care Nurse Care Team Related Persons Name: CECY NGUYEN Address: [address] [place] [address] Name: LEIDY NGUYEN JR Address: home [address] [place] [address]
--- OUTSIDE RECORDS SUMMARY | 2024-05-03 22:14 | XMS_ITS | Continuity of Care Document ---
Author Organization [facility] Address [address] [place] [address]- Care Team Providers Care Pulp Piler Name Role Phone Merlene BYRNE, Cortez Kendall Primary Care Physician Encounter [facility] [place] [facility] [id number] Date(s): 08/11/22 - 09/12/22 [facility] [address] [place] [address]- Attending Physician: Bonifacio MEDICAL FIELD REPRESENTATIVE, Kassandra Allergies, Adverse Reactions, Alerts Substance Reaction Severity Status lisinopril Active penicillins Rash Active Immunizations Given and Recorded Vaccine Date Status Refusal Reason tetanus/diphtheria/pertussis, acel(Tdap) 1 12/20/17 Given Not Given Vaccine Date Status Refusal Reason Influenza Virus Vaccine (oldterm) 06/21/19 Not Giv en Patient Refuses 1Result Comment: [12/20/2017] [facility] 30142-900-18 Medications Acetaminophen Daily, 0 Refills, Maintenance, 09/10/22 8:02:00 EST, Partial fill upon patient request if the prescription is for a schedule II opioid drug. Start Date: 09/10/22 Status: Ordered amiodarone 200 mg oral tablet 200 mg, 1, tablet, By Mouth, Daily, # 30 tablet, Refills 0, Tot. Refills 0, Maintenance, 09/05/22 9:34:00 EST, Route to Pharmacy Electronically, [facility], Partial fill upon patient [...] 0 Refills, Maintenance, 09/05/22 9:49:00 EST, Tablet, [facility], Partial fill upon patient request if the prescription is for a scheduleII opioid drug., 177.8, cm, 09/05/22 8:50:00 EST, H... Start Date: 09/05/22 Status: Ordered doxazosin 4 mg oral tablet 1 tablet, By Mouth, Daily, # 90 tablet, 1 Refills, Maintenance, 07/05/22 16:17:00 EST, [facility]/pharmacy#2071, 178, cm, 07/01/22 7:55:00 EST, Height Start Date: 07/05/22 Status: Ordered Eliquis 5 mg oral tablet 1 tablet = 5 mg, By Mouth, 2 times a day, # 60 tablet, 5 Refills, Maintenance, 07/01/22 9:02:00 EST, Tablet[facility] Partial fill upon patient request if the prescription is for a schedule II opioid drug., 178, cm, 07/01/22 7:55:00 EST, He... Start Date: 07/01/22 Status: Ordered gabapentin 100 mg oral capsule 2, capsule, By Mouth, Daily at bedtime, # 60 capsule, Refills 2, Maintenance, 06/18/22 11:52:00 EST, Route to Pharmacy Electronically, [facility] STORE 27175, 176.4, cm, 05/15/22 11:35:00 EDT, Height Start Date: 06/18/22 Status: Ordered metoprolol succinate 100 mg oral capsule, extended release 1 capsule = 100 mg, By Mouth, Daily, # 30 capsule, 0 Refills, Maintenance, 09/05/22 9:33:00 EST, ERCapsule, [facility], Partial fill upon patient [...] 09/05/22 9:32:00 EST, Route to Pharmacy Electronically, [facility], Partial fill upon patient request if the prescription is for a schedule II opioid... Start Date: 09/05/22 Status: Ordered Tadalafil (Eqv-Cialis) 20 mg oral tablet 1 tablet, By Mouth, Daily, PRN NEEDED FOR ERECTILE DYSFUNCTION, # 5 tablet, 2 Refills, Maintenance, 08/11/22 9:25:00 EST, [facility], 178, cm, 08/07/22 15:14:00 EST, Height, 147, kg, 08/04/2217:07:00 EST, Dry Weight Start Date: 08/11/22 Status: Ordered torsemide 20 mg oral tablet 1 tablet = 20 mg, By Mouth, 2 times a day, # 60 tablet, 0 Refills, Maintenance, 09/05/22 9:32:00 EST, Tablet, [facility], Partial fill upon patient request if the prescription is for a schedule II opioid drug., 177.8, cm, 09/05/22 8:50:0... Start Date: 09/05/22 Status: Ordered valsartan 40 mg oral tablet 80 mg, 2, tablet, By Mouth, 2 times a day, # 120 tablet, Refills 0, Tot. Refills 0, Maintenance, 09/05/22 9:33:00 EST, Route to Pharmacy Electronically, [facility], Partial fill upon patient request if [...] Care Nurse Name: Cortez Blunt MD Position: [facility] Primary Care Physician Member Role: PCP Address: Address: [address] [place] [address] Name: Edna Kelly RN Position: S RN Member Role: Primary Care Nurse Name: Ron Babb RN Position: [facility] RN Member Role: Primary Care Nurse Care Team Related Persons Name: CECY NGUYEN Address: home [address] [place] [address] Name: LEIDY NGUYEN JR Address: [address] [place] [address]
--- OUTSIDE RECORDS SUMMARY | 2024-05-03 22:14 | XMS_ITS | Continuity of Care Document ---
Author Organization [facility] Address [address] [address]- Care Team Providers Care Bus Driver School Name Role Phone Merlene BYRNE, Cortez Kendall Primary Care Physician [phone] Encounter [place] Date(s): 11/23/22 - 12/23/22 [facility] [address] [address]- Attending Physician: Uri Chance Admitting Physician: Uri Chance Referring Physician: AdmtrUri Allergies, Adverse Reactions, Alerts Substance Reaction Severity Status lisinopril Active penicillins Rash Active Immunizations Given and Recorded Vaccine Date Status Refusal Reason tetanus/diphtheria/pertussis, acel(Tdap) 1 12/20/17 Given Not Given Vaccine Date Status Refusal Reason Influenza Virus Vaccine (oldterm) 06/21/19 Not Giv en Patient Refuses 1Result Comment: [12/20/2017] [facility] [id number] Medications Acetaminophen Daily, 0 Refills, Maintenance, 09/10/22 8:02:00 EST, Partial fill upon patient request if the prescription is for a schedule II opioid drug. Start Date: 09/10/22 Status: Ordered amiodarone 200 mg oral tablet 200 mg, 1, tablet, By Mouth, Daily, # 90 tablet, Refills 0, Tot. Refills 0, Maintenance, 10/06/22 9:50:00 EST, Route to Pharmacy Electronically, [facility]/pharmacy #[id number], Partial fill upon patient request if the prescription is for a schedule II opioid drug... Start Date: 10/06/22 Stop Date: 01/04/23 Status: Ordered amLODIPine 10 mg oral tablet 1 tablet, By Mouth, Daily, # 90 tablet, 3 Refills, Maintenance, 09/29/22 6:28:00 EST, [facility] 03[facility], 177.8, cm, 09/10/22 8:00:00 EST, Height, 146.1, [...] 0 Refills, Maintenance, 10/06/22 9:48:00 EST, Tablet, [facility]/pharmacy #2071, Partial fill upon patient request if the prescription is for a schedule II opioid drug., 177.8, cm, 09/10/22 8:00:00 EST, Height,... Start Date: 10/06/22 Status: Ordered doxazosin 4 mg oral tablet 1 tablet, By Mouth, Daily, # 90 tablet, 1 Refills, Maintenance, 12/17/22 11:10:00 EDT, [facility] 32430, 176.1, cm, 10/21/22 11:09:00 EDT, Height, 146.1, kg, 08/29/22 15:57:00 EST, Dry Weight Start Date: 12/17/22 Status: Ordered Eliquis 5 mg oral tablet 1 tablet = 5 mg, By Mouth, 2 times a day, # 60 tablet, 5 Refills, Maintenance, 07/01/22 9:02:00 EST, Tablet, [facility]/pharmacy #2071, Partial fill upon patient request if the prescription is for a schedule II opioid drug., 178, cm, 07/01/22 7:55:00 EST, He... Start Date: 07/01/22 Status: Ordered gabapentin 100 mg oral capsule 2, capsule, By Mouth, Daily at bedtime, # 60 capsule, Refills 2, Maintenance, 09/28/22 14:04:00 EST, Route to Pharmacy Electronically, [facility] 10774, 177.8, cm, 09/10/22 8:00:00 EST, Height, 146.1,kg, 08/29/22 15:57:00 EST, Dry Weight Start Date: 09/28/22 Status: Ordered Metoprolol Succinate ER 100 mg oral tablet, extended release See Instructions, TAKE 1 TABLET BY MOUTH EVERY DAY, # 90 tablet, 1 Refills, Maintenance, 11/09/22 9:12:00 EDT, [facility]/pharmacy #[id number], 176.1, cm, 10/21/22 11:09:00 EDT, Height, [...] 11/09/22 9:07:00 EDT, Route to Pharmacy Electronically, [facility]/pharmacy #[id number], 176.1, cm, 10/21/22 11:09:00 EDT, Height, 146.1, kg, 08/29/22 15:57:00 EST, Dry Weight Start Date: 11/09/22 Status: Ordered Tadalafil (Eqv-Cialis) 20 mg oral tablet 1 tablet, By Mouth, Daily, PRN NEEDED FOR ERECTILE DYSFUNCTION, # 5 tablet, 2 Refills, Maintenance, 08/11/22 9:25:00 EST, [facility], 178, cm, 08/07/22 15:14:00 EST, Height, 147, [...] Refills, Maintenance, 12/17/22 6:36:00 EDT, Tablet, [facility]/pharmacy #[id number], [...] 13:24:00 EDT, [facility] Team Personnel Name: Lázaro Garcia RN Position: [facility] RN Member Role: Primary Care Nurse Name: Alanis Harris Position: [facility] RN Supv Member Role: Primary Care Nurse Name: Brittani Anguiano RN Position: [facility] RN Member Role: Primary Care Nurse Name: Cortez Blunt MD Position: [facility] Primary Care Physician Member Role: PCP Address: Address: [address] [place] [address]- Name: Ron Babb RN Position: S RN Member Role: Primary Care Nurse Care Team Related Persons Name: CECY NGUYEN Address: home [address] [place] [address] Name: LEIDY NGUYEN JR Address: home [address] [place] [address]
--- OUTSIDE RECORDS SUMMARY | 2024-05-03 22:14 | XMS_ITS | Continuity of Care Document ---
Author Organization [facility] Address [address] [place] [address]- Care Team Providers Care Blow Pit Operator Name Role Phone Merlene BYRNE, Cortez Kendall Primary Care Physician [phone] Encounter [facility] [place] Date(s): 06/19/22 - 07/19/22 [facility] Adult [address] [place] [address]- Allergies, Adverse Reactions, Alerts Substance Reaction Severity Status lisinopril Active penicillins Rash Active Immunizations Given and Recorded Vaccine Date Status Refusal Reason tetanus/diphtheria/pertussis, acel(Tdap) 1 12/20/17 Given Not Given Vaccine Date Status Refusal Reason Influenza Virus Vaccine (oldterm) 06/21/19 Not Giv en Patient Refuses 1Result Comment: [12/20/2017] [facility] 25019-563-28 Medications aspirin 81 mg oral tablet 1 tablet = 81 mg, By Mouth, Daily, # 30 tablet, 0 Refills, Maintenance, 03/11/17 15:49:45, Tablet Start Date: 03/11/17 Status: Ordered carvedilol 3.125 mg oral tablet 1, tablet, By Mouth, 2 times a day, # 180 tablet, Refills 3, Maintenance, 07/14/22 10:48:00 EST, Route to Pharmacy Electronically, [facility], 178, cm, 07/01/22 7:55:00 EST, Height Start Date: 07/14/22 Status: Ordered doxazosin 4 mg oral tablet 1 tablet, By Mouth, Daily, # 90 tablet, 1 Refills, Maintenance, 07/05/22 16:17:00 EST, [facility]/pharmacy#2071, 178, cm, 07/01/22 7:55:00 EST, Height Start Date: 07/05/22 Status: Ordered Eliquis 5 mg oral tablet 1 tablet = 5 mg, By Mouth, 2 times a day, # 60 tablet, 5 Refills, Maintenance, 07/01/22 9:02:00 EST, Tablet, [facility]/pharmacy #[id number], Partial fill upon patient request if the prescription is for a schedule II opioid drug., 178, cm, 07/01/22 7:55:00 EST, He... Start Date: 07/01/22 Status: Ordered flecainide 50 mg oral tablet 50 mg, 1, tablet, By Mouth, Every 12 hours, # 60 tablet, Refills 1, Tot. Refills 1, Maintenance, 07/01/22 9:03:00 EST, Route to Pharmacy Electronically, [facility]/pharmacy #[id number], Partial fill upon patient request if the prescription is for a schedule II opi... Start Date: 07/01/22 Status: Ordered gabapentin 100 mg oral capsule 2, capsule, By Mouth, Daily at bedtime, # 60 capsule, Refills 2, Maintenance, 06/18/22 11:52:00 EST, Route to Pharmacy Electronically, [facility] 98877, 176.4, cm, 05/15/22 11:35:00 EDT, Height Start Date: 06/18/22 Status: Ordered Lasix 40 mg oral tablet 40 mg, 1, tablet, By Mouth, Daily, # 30 tablet, Refills 1, Tot. Refills 1, Maintenance, 07/01/22 9:02:00 EST, Route to Pharmacy Electronically, [facility]/pharmacy #2071, Partial fill upon patient request if the prescription is for a schedule II opioid drug.... Start Date: 07/01/22 Status: Ordered metoprolol 50 mg oral tablet, extended release 50 mg, 1, tablet, By Mouth, Daily, # 30 tablet, Refills 2, Tot. Refills 2, Maintenance, 07/01/22 9:03:00 EST, Route to Pharmacy Electronically, [facility]/pharmacy #[id number], Partial fill upon patient request if [...] Refills, Maintenance, 04/12/22 10:29:00 EDT, [facility], 176.4, cm, 02/02/22 11:18:00 EDT, Height Start [...] Care Nurse Name: Cortez Blunt MD Position: [facility] Primary Care Physician Member Role: PCP Address: Address: [address] [place] [address]- Name: Edna Kelly RN Position: S RN Member Role: Primary Care Nurse Name: Ron Babb RN Position: S RN Member Role: Primary Care Nurse Care Team Related Persons Name: CECY NGUYEN Address: home [address] [place] [address] Name: LEIDY NGUYEN JR Address: home [address] [place] [address]
--- OUTSIDE RECORDS SUMMARY | 2024-05-03 22:14 | XMS_ITS | Continuity of Care Document ---
Author Organization [facility] Kevin Darrell lt Address [address] [place] [address]- Care Team Providers Care Wind Energy Systems Installer Name Role Phone Merlene BYRNE, Cortez Kendall Primary Care Physician Encounter [facility] Date(s): 05/22/22 - 06/21/22 [facility] Adult [address] [place] [address]- Allergies, Adverse Reactions, Alerts Substance Reaction Severity Status lisinopril Active penicillins Rash Active Immunizations Given and Recorded Vaccine Date Status Refusal Reason tetanus/diphtheria/pertussis, acel(Tdap) 1 12/20/17 Given Not Given Vaccine Date Status Refusal Reason Influenza Virus Vaccine (oldterm) 06/21/19 Not Giv en Patient Refuses 1Result Comment: [12/20/2017] [facility] [id number] Medications amLODIPine 10 mg oral tablet 1 tablet, By Mouth, Daily, # 90 tablet, 1 Refills, Maintenance, 04/12/22 10:29:00 EDT, [facility] 26007, 176.4, cm, 02/02/22 11:18:00 EDT, Height Start [...] 06/19/22 10:16:00 EST, Route to Pharmacy Electronically, [facility]/pharmacy #1707, Partial fill upon patient request if the prescription is for a schedule II... Start Date: 06/19/22 Status: Ordered doxazosin 4 mg oral tablet 1 tablet, By Mouth, Daily, # 90 tablet, 1 Refills, [facility], 176.4, cm, 08/15/21 9:23:00 EST, Height Start Date: 01/17/22 Status: Ordered Eliquis 5 mg oral tablet 1 tablet = 5 mg, By Mouth, 2 times a day, Stop ASA, # 60 tablet, 5 Refills, Maintenance, 06/19/22 10:17:00 EST, Tablet, [facility]/pharmacy #2071, Partial fill upon patient request if the prescription is for a schedule II opioid drug., 176.4, cm, 06/19/22 9:... Start Date: 06/19/22 Status: Ordered gabapentin 100 mg oral capsule 2, capsule, By Mouth, Daily at bedtime, # 60 capsule, Refills 2, Maintenance, 06/18/22 11:52:00 EST, Route to Pharmacy Electronically, [facility] 24820, 176.4, cm, 05/15/22 11:35:00 EDT, Height Start Date: 06/18/22 Status: Ordered Tadalafil (Eqv-Cialis) 20 mg oral tablet 1 tablet, By Mouth, Daily, PRN NEEDED FOR ERECTILE DYSFUNCTION, # 5 tablet, 2 Refills, Maintenance, 04/12/22 10:29:00 EDT, [facility], 176.4, cm, 02/02/22 11:18:00 EDT, Height Start [...] Care Physician Member Role: PCP Address: Address: [address] [place] [address]- Care Team Related Persons Name: CECY NGUYEN Address: home [address] [place] [address]
[2024-05-03 22:15] LABS: Calcium 9.5 mg/dL (8.4-10.2)
--- OUTSIDE RECORDS SUMMARY | 2024-05-03 22:15 | XMS_ITS | Continuity of Care Document ---
Author Organization [facility] Address [address] [place] [address]- Care Team Providers Care Electronic Installer Name Role Phone Merlene BYRNE, Cortez Kendall Primary Care Physician Encounter [facility] Date(s): 11/06/21 - 12/06/21 [facility] Adult [address] [place] [address]- Allergies, Adverse Reactions, Alerts Substance Reaction Severity Status lisinopril Active penicillins Rash Active Immunizations Given and Recorded Vaccine Date Status Refusal Reason tetanus/diphtheria/pertussis, acel(Tdap) 1 12/20/17 Given Not Given Vaccine Date Status Refusal Reason Influenza Virus Vaccine (oldterm) 06/21/19 Not Giv en Patient Refuses 1Result Comment: [12/20/2017] [facility] 76009-442-64 Medications amLODIPine 10 mg oral tablet 1 tablet, By Mouth, Daily, # 90 tablet, 1 Refills, [facility], 176.4, cm, 08/15/21 9:23:00 EST, Height Start Date: 10/13/21 Status: Ordered aspirin 81 mg oral tablet 1 tablet = 81 mg, By Mouth, Daily, # 30 tablet, 0 Refills, Maintenance, 03/11/17 15:49:45, Tablet Start Date: 03/11/17 Status: Ordered doxazosin 4 mg oral tablet 1 tablet, By Mouth, Daily, # 90 tablet, 0 Refills, 11/18/21 14:39:00 EDT, [facility]/pharmacy #2071, 176.4, cm, 08/15/21 9:23:00 EST, Height Start Date: 11/18/21 Status: Ordered gabapentin 100 mg oral capsule 1, capsule, By Mouth, Daily at bedtime, # 30 capsule, Refills 2, Route to Pharmacy Electronically, [facility], 176.4, cm, 08/15/21 9:23:00 EST, Height Start Date: 11/03/21 Status: Ordered gabapentin 100 mg oral capsule 200 mg, 2, capsule, By Mouth, Daily at bedtime, # 60 capsule, Refills 2, Tot. Refills 2, Maintenance, 11/06/21 16:34:00 EDT, Route to Pharmacy Electronically, [facility]/pharmacy #[id number], Partial fill upon patient request if the prescription is for a schedule... Start Date: 11/06/21 Status: Ordered irbesartan 150 mg oral tablet 1 tablet, By Mouth, Daily, # 90 tablet, 1 Refills, [facility] 27735, 176.4, cm, 04/07/21 7:14:00 EDT, Height Start Date: 06/18/21 Status: Ordered Tadalafil (Eqv-Cialis) 20 mg oral tablet 1 tablet, By Mouth, Daily, PRN NEEDED FOR ERECTILE DYSFUNCTION, # 5 tablet, 2 Refills, [id number], 176.4, cm, 08/15/21 9:23:00 EST, Height Start [...]
--- OUTSIDE RECORDS SUMMARY | 2024-05-03 22:15 | XMS_ITS | Continuity of Care Document ---
Author Organization [facility] Address [address] [place] [address]- Care Team Providers Care Model Builder Display Name Role Phone Cortez Blunt MD Primary Care Physician Encounter [facility] [id number] Date(s): 10/26/22 - 01/06/23 [facility] [address] [place] [address]- Attending Physician: Crow Sosa DO Admitting Physician: Crow Sosa DO Referring Physician: Cortez Blunt MD Allergies, Adverse Reactions, Alerts Substance Reaction Severity Status lisinopril Active penicillins Rash Active Immunizations Given and Recorded Vaccine Date Status Refusal Reason tetanus/diphtheria/pertussis, acel(Tdap) 1 12/20/17 Given Not Given Vaccine Date Status Refusal Reason Influenza Virus Vaccine (oldterm) 06/21/19 Not Giv en Patient Refuses 1Result Comment: [12/20/2017] [facility] 40853-014-50 Medications Acetaminophen Daily, 0 Refills, Maintenance, 09/10/22 8:02:00 EST, Partial fill upon patient request if the prescription is for a schedule II opioid drug. Start Date: 09/10/22 Status: Ordered amLODIPine 10 mg oral tablet 1 tablet, By Mouth, Daily, # 90 tablet, 3 Refills, Maintenance, 09/29/22 6:28:00 EST, [facility], 177.8, cm, 09/10/22 8:00:00 EST, Height, 146.1, [...] 0 Refills, Maintenance, 10/06/22 9:48:00 EST, Tablet, [facility]/pharmacy #[id number], Partial fill upon patient request if the prescription is for a schedule II opioid drug., 177.8, cm, 09/10/22 8:00:00 EST, Height,... Start Date: 10/06/22 Status: Ordered doxazosin 4 mg oral tablet 1 tablet, By Mouth, Daily, # 90 tablet, 1 Refills, Maintenance, 12/17/22 11:10:00 EDT, [facility], 176.1, cm, 10/21/22 11:09:00 EDT, Height, 146.1, [...] 09/28/22 14:04:00 EST, Route to Pharmacy Electronically, [facility], 177.8, cm, 09/10/22 8:00:00 EST, Height, 146.1,kg, 08/29/22 15:57:00 EST, Dry Weight Start Date: 09/28/22 Status: Ordered Metoprolol Succinate ER 100 mg oral tablet, extended release See Instructions, TAKE 1 TABLET BY MOUTH EVERY DAY, # 90 tablet, 1 Refills, Maintenance, 11/09/22 9:12:00 EDT, [facility]/pharmacy #[id number], 176.1, cm, 10/21/22 11:09:00 EDT, [...] 11/09/22 9:07:00 EDT, Route to Pharmacy Electronically, [facility]/pharmacy #[id number], 176.1, cm, 10/21/22 11:09:00 EDT, Height, 146.1, kg, 08/29/22 15:57:00 EST, Dry Weight Start Date: 11/09/22 Status: Ordered Tadalafil (Eqv-Cialis) 20 mg oral tablet 1 tablet, By Mouth, Daily, PRN NEEDED FOR ERECTILE DYSFUNCTION, # 5 tablet, 2 Refills, Maintenance, 08/11/22 9:25:00 EST, [facility] STORE 06205, 178, cm, 08/07/22 15:14:00 EST, Height, 147, [...] to Pharmacy Electronically, [facility]/pharmacy #[id number], Partial fill upon patient request if the [...] Care Nurse Name: Brittani Anguiano RN Position: [facility] SN RN Member Role: Primary Care Nurse Name: Cortez Blunt MD Position: [facility] Physician - Primary Care Member Role: PCP Address: Address: [address] [place] [address]- Name: Ron Babb RN Position: S RN Member Role: Primary Care Nurse Care Team Related Persons Name: CECY NGUYEN Address: home [address] [place] [address] Name: LEIDY NGUYEN JR Address: home [address] [place] [address]
--- OUTSIDE RECORDS SUMMARY | 2024-05-03 22:15 | XMS_ITS | Continuity of Care Document ---
Author Organization [facility] Address [address] [place] [address]- Care Team Providers Care Varnish Finisher Name Role Phone Merlene BYRNE, Cortez Kendall Primary Care Physician Encounter [facility] [place] Date(s): 07/12/23 - 08/11/23 [facility] Adult [address] [place] [address]- Allergies, Adverse Reactions, Alerts Substance Reaction Severity Status lisinopril cough Active penicillins Rash Active Immunizations Given and Recorded Vaccine Date Status Refusal Reason tetanus/diphtheria/pertussis, acel(Tdap) 1 12/20/17 Given 1Result Comment: [12/20/2017] [facility] 84208-187-66 Medications Acetaminophen Daily, 0 Refills, Maintenance, 09/10/22 [...] tablet, 3 Refills, Maintenance, 07/13/23 5:16:00 EST, [facility] 09985, 176.1, cm, 06/25/23 8:54:00 EST, Height, 146.1, kg, 08/29/22 15:57:00 EST, Dry Weight Start Date: 07/13/23 Status: Ordered Eliquis 5 mg oral tablet 1 tablet, By Mouth, 2 times a day, *STOP ASPIRIN*., # 60 tablet, 11 Refills, Maintenance, 07/13/23 5:16:00 EST, [facility], 176.1, cm, 06/25/23 8:54:00 EST, Height, 146.1, kg, 08/29/22 15:57:00 EST, Dry Weight Start Date: 07/13/23 Status: Ordered Farxiga 10 mg oral tablet 1 tablet = 10 mg, By Mouth, Daily, # 90 tablet, 4 Refills, Maintenance, 06/25/23 9:09:00 EST, Tablet, [facility]/pharmacy #[id number], Partial fill upon patient request if the prescription is for a schedule II opioid drug., 176.1, cm, 06/25/23 8:54:00 EST, Height,... Start Date: 06/25/23 Stop Date: 09/17/24 Status: Ordered gabapentin 100 mg oral capsule 2, capsule, By Mouth, Daily at bedtime, # 180 capsule, Refills 1, Tot. Refills 1, Maintenance, 05/10/23 13:26:00 EDT, Route to Pharmacy Electronically, [facility]/pharmacy #[id number], 176.1, cm, 05/10/23 13:05:00 EDT, Height, 146.1, kg, 08/29/22 15:57:00 EST, Dry... Start Date: 05/10/23 Status: Ordered LORazepam 2 mg oral tablet 1 tablet = 2 mg, By Mouth, Once, one hour prior to procedure, # 1 tablet, 0 Refills, Soft Stop, 07/22/23 6:37:00 EST, Tablet, [facility]/pharmacy #[id number], Partial fill upon patient request if the prescriptionis for a schedule II opioid drug., 176.1, cm, 06/25... Start Date: 07/22/23 Status: Ordered Metoprolol Succinate ER 100 mg oral tablet, extended release 1 tablet, By Mouth, Daily, # 90 tablet, 3 Refills, Maintenance, 07/09/23 13:03:00 EST, [facility] 384[facility], 176.1, cm, 06/25/23 8:54:00 EST, Height, 146.1, [...] 06/14/23 8:05:00 EST, Route to Pharmacy Electronically, [facility] 93145, 176.1, cm, 05/13/23 9:04:00 EDT, Height, 146.1, kg, 08/29/22 15:57:00 EST, Dry Weight Start Date: 06/14/23 Status: Ordered Tadalafil (Eqv-Cialis) 20 mg oral tablet 1 tablet, By Mouth, Daily, PRN NEEDED FOR ERECTILE DYSFUNCTION, # 5 tablet, 2 Refills, Maintenance, 06/13/23 18:58:00 EST, [facility] 163[facility], 176.1, cm, 05/13/23 9:04:00 EDT, Height, 146.1, [...] 3 Refills, Maintenance, 12/17/22 6:36:00 EDT, Tablet, [facility]/pharmacy #[id number], Partial fill upon patient request if the prescription is for a schedule II opioid drug., 176.1, cm, 10/21/22 11:09:00 ED... Start Date: 12/17/22 Stop Date: 12/12/23 Status: Ordered valsartan 160 mg oral tablet 160 mg, 1, tablet, By Mouth, 2 times a day, # 180 tablet, Refills 4, Tot. Refills 4, Maintenance, 07/09/23 13:10:00 EST, Route to Pharmacy Electronically, [facility]/pharmacy #[id number], Partial fill upon patient request if the [...] Care Team Personnel Name: Alanis Harris Position: [facility] RN Supv Member Role: Primary Care Nurse Name: Brittani Anguiano RN Position: [facility] RN Member Role: Primary Care Nurse Name: Cortez Blunt MD Position: [facility] Physician - Primary Care Member Role: PCP Address: Address: [address] [place] [address]- Name: Ron Babb RN Position: [facility] RN Member Role: Primary Care Nurse Care Team Related Persons Name: CECY NGUYEN Address: home [address] [place] [address] Name: LEIDY NGUYEN JR Address: home [address] [place] [address]
--- OUTSIDE RECORDS SUMMARY | 2024-05-03 22:15 | XMS_ITS | Continuity of Care Document ---
Author Organization [facility] Address [address] [place] [address]- Care Team Providers Care Hand Alterations Seamstress Name Role Phone Merlene BYRNE, Cortez Kendall Primary Care Physician [phone] [place] [facility] [place] 09/16/22 - 10/16/22 [facility] [address] [place] [address]- [place] Allergies, Adverse Reactions, Alerts Substance Reaction Severity Status lisinopril Active penicillins Rash Active Immunizations Given and Recorded Vaccine Date Status Refusal Reason tetanus/diphtheria/pertussis, acel(Tdap) 1 12/20/17 Given Not Given Vaccine Date Status Refusal Reason Influenza Virus Vaccine (oldterm) 06/21/19 Not Giv en Patient Refuses 1Result Comment: [12/20/2017] [facility] 19410-025-56 Medications Acetaminophen Daily, 0 Refills, Maintenance, 09/10/22 8:02:00 EST, Partial fill upon patient request if the prescription is for a schedule II opioid drug. Start Date: 09/10/22 Status: Ordered amiodarone 200 mg oral tablet 200 mg, 1, tablet, By Mouth, Daily, # 90 tablet, Refills 0, Tot. Refills 0, Maintenance, 10/06/22 9:50:00 EST, Route to Pharmacy Electronically, [facility]/pharmacy #[id number], Partial fill upon patient request if the prescription is for a schedule II opioid drug... Start Date: 10/06/22 Stop Date: 01/04/23 Status: Ordered amLODIPine 10 mg oral tablet 1 tablet, By Mouth, Daily, # 90 tablet, 3 Refills, Maintenance, 09/29/22 6:28:00 EST, [facility], 177.8, cm, 09/10/22 8:00:00 EST, Height, 146.1, [...] 0 Refills, Maintenance, 10/06/22 9:48:00 EST, Tablet, [facility]/pharmacy #[id number], Partial fill upon patient request if the prescription is for a schedule II opioid drug., 177.8, cm, 09/10/22 8:00:00 EST, Height,... Start Date: 10/06/22 Status: Ordered doxazosin 4 mg oral tablet 1 tablet, By Mouth, Daily, # 90 tablet, 1 Refills, Maintenance, 07/05/22 16:17:00 EST, [facility]/pharmacy#[id number], 178, cm, 07/01/22 7:55:00 EST, Height Start Date: 07/05/22 Status: Ordered Eliquis 5 mg oral tablet 1 tablet = 5 mg, By Mouth, 2 times a day, # 60 tablet, 5 Refills, Maintenance, 07/01/22 9:02:00 EST, Tablet, [facility]/pharmacy #[id number], Partial fill upon patient request if the prescription is for a schedule II opioid drug., 178, cm, 07/01/22 7:55:00 EST, He... Start Date: 07/01/22 Status: Ordered gabapentin 100 mg oral capsule 2, capsule, By Mouth, Daily at bedtime, # 60 capsule, Refills 2, Maintenance, 09/28/22 14:04:00 EST, Route to Pharmacy Electronically, [facility] ST[facility] 50008, 177.8, cm, 09/10/22 8:00:00 EST, Height, 146.1,kg, 08/29/22 15:57:00 EST, Dry Weight Start Date: 09/28/22 Status: Ordered metoprolol succinate 100 mg oral capsule, extended release 1 capsule = 100 mg, By Mouth, Daily, # 30 capsule, 0 Refills, Maintenance, 09/05/22 9:33:00 EST, [place], [facility], Partial fill upon patient [...] 10/06/22 9:49:00 EST, Route to Pharmacy Electronically, [facility]/pharmacy #[id number], Partial fill upon patient request if the prescription is for a schedule II opioid drug.... Start Date: 10/06/22 Stop Date: 01/04/23 Status: Ordered Tadalafil (Eqv-Cialis) 20 mg oral tablet 1 tablet, By Mouth, Daily, PRN NEEDED FOR ERECTILE DYSFUNCTION, # 5 tablet, 2 Refills, Maintenance, 08/11/22 9:25:00 EST, [facility] 15562, 178, cm, 08/07/22 15:14:00 EST, Height, 147, kg, 08/04/2217:07:00 EST, Dry Weight Start Date: 08/11/22 Status: Ordered torsemide 20 mg oral tablet 1 tablet = 20 mg, By Mouth, 2 times a day, # 180 tablet, 0 Refills, Maintenance, 10/06/22 9:48:00 EST, Tablet, [facility]/pharmacy #[id number], Partial fill [...] 10/06/22 9:48:00 EST, [facility] Electron[facility] Team Personnel Name: Lázaro Garcia RN Position: [facility] RN Member Role: Primary Care Nurse Name: Alanis Harris Position: [facility] RN Supv Member Role: Primary Care Nurse Name: Brittani Anguiano RN Position: S RN Member Role: Primary Care Nurse Name: Cortez Blunt MD Position: [facility] Primary Care Physician Member Role: PCP Address: Address: [address] [place] [address]- Name: Ron Babb RN Position: [facility] RN Member Role: Primary Care Nurse Care Team Related Persons Name: CECY NGUYEN Address: home [address] [place] [address] Name: LEIDY NGUYEN JR Address: home [address] [place] [address]
--- OUTSIDE RECORDS SUMMARY | 2024-05-03 22:15 | XMS_ITS | Continuity of Care Document ---
Author Organization [facility] Address [address] [facility], [address] Floor, [address] [place] [address]- Care Team Providers Care Grinding Machine Operator Portable Name Role Phone Merlene BYRNE, Cortez Kendall Primary Care Physician [phone] Encounter [facility] [place] Date(s): 12/06/23 - 01/05/24 [facility] [address], [address] [place] [address] Allergies, Adverse Reactions, Alerts Substance Reaction Severity Status lisinopril cough Active penicillins Rash Active Immunizations Given and Recorded Vaccine Date Status Refusal Reason tetanus/diphtheria/pertussis, acel(Tdap) 1 12/20/17 Given 1Result Comment: [12/20/2017] [facility] 71805-817-51 Medications aspirin 81 mg oral tablet 1 tablet = 81 mg, By Mouth, Daily, # 30 tablet, 0 Refills, Maintenance, 03/11/17 15:49:45, Tablet Start Date: 03/11/17 Status: Ordered doxazosin 4 mg oral tablet 1 tablet, By Mouth, Daily, # 90 tablet, 3 Refills, Maintenance, 07/13/23 5:16:00 EST, [facility] 26617, 176.1, cm, 06/25/23 8:54:00 EST, Height, 146.1, kg, 08/29/22 15:57:00 EST, Dry Weight Start Date: 07/13/23 Status: Ordered Eliquis 5 mg oral tablet 1 tablet, By Mouth, 2 times a day, *STOP ASPIRIN*., # 60 tablet, 11 Refills, Maintenance, 07/13/23 5:16:00 EST, [facility] 22409, 176.1, cm, 06/25/23 8:54:00 EST, Height, 146.1, kg, 08/29/22 15:57:00 EST, Dry Weight Start Date: 07/13/23 Status: Ordered gabapentin 100 mg oral capsule 2, capsule, By Mouth, Daily at bedtime, # 180 capsule, Refills 1, Maintenance, 10/05/23 12:18:00 EST, Route to Pharmacy Electronically, [facility] 24043, 176.1, cm, 09/20/23 14:12:00 EST, Height, 146.1, kg, 08/29/22 15:57:00 EST, Dry Weight Start Date: 10/05/23 Status: Ordered Keppra 750 mg oral tablet 1 tablet = 750 mg, By Mouth, 2 times a day, # 60 tablet, 0 Refills, Maintenance, 12/01/23 11:42:00 EDT, Tablet, [facility]/pharmacy #[id number], Partial fill upon patient request if the prescription is for a schedule II opioid drug., 178, cm, 12/01/23 10:48:00 EDT... Start Date: 12/01/23 Stop Date: 12/31/23 Status: Ordered Metoprolol Succinate ER 100 mg oral tablet, extended release 1 tablet, By Mouth, Daily, # 90 tablet, 3 Refills, Maintenance, 07/09/23 13:03:00 EST, [facility] 66189, 176.1, cm, 06/25/23 8:54:00 EST, Height, 146.1, [...] 10/01/23 13:00:00 EST, Route to Pharmacy Electronically, [facility] 43623, 176.1, cm, 09/20/23 14:12:00 EST, Height, 146.1, kg, 08/29/22 15:57:00 EST, Dry Weight Start Date: 10/01/23 Status: Ordered Tadalafil (Eqv-Cialis) 20 mg oral tablet 1 tablet, By Mouth, Daily, PRN NEEDED FOR ERECTILE DYSFUNCTION, # 5 tablet, 2 Refills, Maintenance, 06/13/23 18:58:00 EST, [facility], 176.1, cm, 05/13/23 9:04:00 EDT, Height, 146.1, [...] Refills, Maintenance, 11/04/23 7:29:00 EDT, [facility], 176, cm, 10/25/23 12:56:00 EDT, Height, 146.1, kg, 08/29/22 15:57:00 EST, Dry Weight Start Date: 11/04/23 Status: Ordered valsartan 160 mg oral tablet 160 mg, 1, tablet, By Mouth, 2 times a day, # 180 tablet, Refills 4, Tot. Refills 4, Maintenance, 07/09/23 13:10:00 EST, Route to Pharmacy Electronically, [facility]/pharmacy #[id number], Partial fill upon patient request if the [...] Personnel Name: Alanis Harris Position: [facility] RN Supv Member Role: Primary Care Nurse Name: Brittani Anguiano RN Position: [facility] SN RN Member Role: Primary Care Nurse Name: Sherrell Yan RN Position: [facility] RN Member Role: Primary Care Nurse Name: Cortez Blunt MD Position: [facility] Physician - Primary Care Member Role: PCP Address: Address: [address] [place] [address]- Name: Godwin Perkins RN Position: [facility] RN Member Role: Primary Care Nurse Name: Ron Babb RN Position: [facility] RN Member Role: Primary Care Nurse Care Team Related Persons Name: CECY NGUYEN Address: home [address] [place] [address] Name: LEIDY NGUYEN JR Address: home [address] [place] [address]
--- OUTSIDE RECORDS SUMMARY | 2024-05-03 22:15 | XMS_ITS | Continuity of Care Document ---
Author Organization [facility] Address [address] [place] [address]- Care Team Providers Care Executive Officer Name Role Phone Merlene BYRNE, Cortez Kendall Primary Care Physician Encounter [facility] Date(s): 06/16/22 - 07/16/22 [facility] Adult [address] [place] [address]- Allergies, Adverse Reactions, Alerts Substance Reaction Severity Status lisinopril Active penicillins Rash Active Immunizations Given and Recorded Vaccine Date Status Refusal Reason tetanus/diphtheria/pertussis, acel(Tdap) 1 12/20/17 Given Not Given Vaccine Date Status Refusal Reason Influenza Virus Vaccine (oldterm) 06/21/19 Not Giv en Patient Refuses 1Result Comment: [12/20/2017] [facility] 52574-225-85 Medications aspirin 81 mg oral tablet 1 tablet = 81 mg, By Mouth, Daily, # 30 tablet, 0 Refills, Maintenance, 03/11/17 15:49:45, Tablet Start Date: 03/11/17 Status: Ordered carvedilol 3.125 mg oral tablet 1, tablet, By Mouth, 2 times a day, # 180 tablet, Refills 3, Maintenance, 07/14/22 10:48:00 EST, Route to Pharmacy Electronically, [facility], 178, cm, 07/01/22 7:55:00 EST, Height Start Date: 07/14/22 Status: Ordered doxazosin 4 mg oral tablet 1 tablet, By Mouth, Daily, # 90 tablet, 1 Refills, Maintenance, 07/05/22 16:17:00 EST, [facility]/pharmacy#[id number], 178, cm, 07/01/22 7:55:00 EST, Height Start Date: 07/05/22 Status: Ordered Eliquis 5 mg oral tablet 1 tablet = 5 mg, By Mouth, 2 times a day, # 60 tablet, 5 Refills, Maintenance, 07/01/22 9:02:00 EST, Tablet, [facility]/pharmacy #[id number], Partial fill upon patient request if the prescription is for a schedule II opioid drug., 178, cm, 07/01/22 7:55:00 EST, He... Start Date: 07/01/22 Status: Ordered flecainide 50 mg oral tablet 50 mg, 1, tablet, By Mouth, Every 12 hours, # 60 tablet, Refills 1, Tot. Refills 1, Maintenance, 07/01/22 9:03:00 EST, Route to Pharmacy Electronically, [facility]/pharmacy #[id number], Partial fill upon patient request if the prescription is for a schedule II opi... Start Date: 07/01/22 Status: Ordered gabapentin 100 mg oral capsule 2, capsule, By Mouth, Daily at bedtime, # 60 capsule, Refills 2, Maintenance, 06/18/22 11:52:00 EST, Route to Pharmacy Electronically, [facility] STORE 59063, 176.4, cm, 05/15/22 11:35:00 EDT, Height Start Date: 06/18/22 Status: Ordered Lasix 40 mg oral tablet 40 mg, 1, tablet, By Mouth, Daily, # 30 tablet, Refills 1, Tot. Refills 1, Maintenance, 07/01/22 9:02:00 EST, Route to Pharmacy Electronically, [facility]/pharmacy #[id number], Partial fill upon patient request if the prescription is for a schedule II opioid drug.... Start Date: 07/01/22 Status: Ordered metoprolol 50 mg oral tablet, extended release 50 mg, 1, tablet, By Mouth, Daily, # 30 tablet, Refills 2, Tot. Refills 2, Maintenance, 07/01/22 9:03:00 EST, Route to Pharmacy Electronically, [facility]/pharmacy #[id number], Partial fill [...] Refills, Maintenance, 04/12/22 10:29:00 EDT, [facility], 176.4, cm, 02/02/22 11:18:00 EDT, Height Start [...] Physician Member Role: PCP Address: Address: [address] [place] [address]- Name: Edna Kelly RN Position: S RN Member Role: Primary Care Nurse Name: Ron Babb RN Position: S RN Member Role: Primary Care Nurse Care Team Related Persons Name: CECY NGUYEN Address: home [address] [place] [address] Name: LEIDY NGUYEN JR Address: [address] [place] [address]
--- OUTSIDE RECORDS SUMMARY | 2024-05-03 22:15 | XMS_ITS | Continuity of Care Document ---
Author Organization [facility] Address [address], [address], [address] [place] [id number]- Care Team Providers Care Cokeman Name Role Phone Merlene BYRNE, Cortez Kendall Primary Care Physician [phone] Encounter [facility] [place] Date(s[place] 06/03/23 - 07/03/23 [facility] [address], [address], [address] [place] [id number] Allergies, Adverse Reactions, Alerts Substance Reaction Severity Status lisinopril cough Active penicillins Rash Active Immunizations Given and Recorded Vaccine Date Status Refusal Reason tetanus/diphtheria/pertussis, acel(Tdap) 1 12/20/17 Given 1Result Comment: [12/20/2017] [facility] [id number] Medications Acetaminophen Daily, 0 Refills, Maintenance, 09/10/22 [...] Refills, Maintenance, 12/17/22 11:10:00 EDT, [id number], 176.1, cm, 10/21/22 11:09:00 EDT, Height, 146.1, kg, 08/29/22 15:57:00 EST, Dry Weight Start Date: 12/17/22 Status: Ordered Eliquis 5 mg oral tablet 1 tablet = 5 mg, By Mouth, 2 times a day, # 60 tablet, 5 Refills, Maintenance, 07/01/22 9:02:00 EST, Tablet, [facility]/pharmacy #[id number], Partial fill upon patient request if the prescription is for a schedule II opioid drug., 178, cm, 07/01/22 7:55:00 EST, He... Start Date: 07/01/22 Status: Ordered Farxiga 10 mg oral tablet 1 tablet = 10 mg, By Mouth, Daily, # 90 tablet, 4 Refills, Maintenance, 06/25/23 9:09:00 EST, Tablet, [facility]/pharmacy #[id number], Partial fill upon patient request if the prescription is for a schedule II opioid drug., 176.1, cm, 06/25/23 8:54:00 EST, Height,... Start Date: 06/25/23 Stop Date: 09/17/24 Status: Ordered gabapentin 100 mg oral capsule 2, capsule, By Mouth, Daily at bedtime, # 180 capsule, Refills 1, Tot. Refills 1, Maintenance, 05/10/23 13:26:00 EDT, Route to Pharmacy Electronically, [facility]/pharmacy #[id number], 176.1, cm, 05/10/23 13:05:00 EDT, Height, 146.1, kg, 08/29/22 15:57:00 EST, Dry... Start Date: 05/10/23 Status: Ordered LORazepam 2 mg oral tablet 1 tablet = 2 mg, By Mouth, Once, one hour prior to procedure, # 1 tablet, 0 Refills, Soft Stop, 06/10/23 5:16:00 EDT, Tablet, [facility]/pharmacy #[id number], Partial fill upon patient request if the prescriptionis for a schedule II opioid drug., 176.1, cm, 05/13... Start Date: 06/10/23 Status: Ordered Metoprolol Succinate ER 100 mg oral tablet, extended release See Instructions, TAKE 1 TABLET BY MOUTH EVERY DAY, # 90 tablet, 1 Refills, Maintenance, 11/09/22 9:12:00 EDT, [facility]/pharmacy #[id number], 176.1, cm, 10/21/22 11:09:00 [...] 06/14/23 8:05:00 EST, Route to Pharmacy Electronically, [id number], 176.1, cm, 05/13/23 9:04:00 EDT, Height, 146.1, kg, 08/29/22 15:57:00 EST, Dry Weight Start Date: 06/14/23 Status: Ordered Tadalafil (Eqv-Cialis) 20 mg oral tablet 1 tablet, By Mouth, Daily, PRN NEEDED FOR ERECTILE DYSFUNCTION, # 5 tablet, 2 Refills, Maintenance, 06/13/23 18:58:00 EST, [id number], 176.1, cm, 05/13/23 9:04:00 EDT, Height, 146.1, [...] 3 Refills, Maintenance, 12/17/22 6:36:00 EDT, Tablet, [facility]/pharmacy #[id number], Partial fill upon patient request if the prescription is for a schedule II opioid drug., 176.1, cm, 10/21/22 11:09:00 ED... Start Date: 12/17/22 Stop Date: 12/12/23 Status: Ordered valsartan 160 mg oral tablet 160 mg, 1, tablet, By Mouth, 2 times a day, # 180 tablet, Refills 4, Tot. Refills 4, Maintenance, 10/19/22 13:24:00 EDT, Route to Pharmacy Electronically, [facility]/pharmacy #[id number], Partial fill upon patient request if the [...] Care Team Personnel Name: Alanis Harris Position: [facility] RN Supv Member Role: Primary Care Nurse Name: Brittani Anguiano RN Position: [facility] RN Member Role: Primary Care Nurse Name: Cortez Blunt MD Position: [facility] Physician - Primary Care Member Role: PCP Address: Address: [address] [place] [address]- Name: Ron Babb RN Position: [facility] RN Member Role: Primary Care Nurse Care Team Related Persons Name: CECY NGUYEN Address: home [address] [place] [address] Name: LEIDY NGUYEN JR Address: home [address] [place] [address]
--- OUTSIDE RECORDS SUMMARY | 2024-05-03 22:15 | XMS_ITS | Continuity of Care Document ---
Author Organization [facility] Address [address] [place] [address]- Care Team Providers Care Comfort Filler Name Role Phone Merlene BYRNE, Cortez Kendall Primary Care Physician [phone] Encounter [facility] [place] Date(s): 06/08/23 - 07/08/[address] [address] Attending Physician: Uri Chance Admitting Physician: AdmtrUri Referring Physician: Admtr, Ar8 Allergies, Adverse Reactions, Alerts Substance Reaction Severity Status lisinopril cough Active penicillins Rash Active Immunizations Given and Recorded Vaccine Date Status Refusal Reason tetanus/diphtheria/pertussis, acel(Tdap) 1 12/20/17 Given 1Result Comment: [12/20/2017] [facility] [id number] Medications Acetaminophen Daily, 0 Refills, Maintenance, 09/10/22 [...] Refills, Maintenance, 12/17/22 11:10:00 EDT, [id number], 176.1, cm, 10/21/22 11:09:00 EDT, Height, 146.1, [...] 4 Refills, Maintenance, 06/25/23 9:09:00 EST, Tablet, [facility]/pharmacy #[id number], Partial fill [...] EDT, Route to Pharmacy Electronically, [facility]/pharmacy #[id number], 176.1, cm, 05/10/23 13:05:00 EDT, Height, 146.1, kg, 08/29/22 15:57:00 EST, Dry... Start Date: 05/10/23 Status: Ordered LORazepam 2 mg oral tablet 1 tablet = 2 mg, By Mouth, Once, one hour prior to procedure, # 1 tablet, 0 Refills, Soft Stop, 06/10/23 5:16:00 EDT, Tablet, [facility]/pharmacy #[id number], Partial fill [...] 06/14/23 8:05:00 EST, Route to Pharmacy Electronically, [id number], 176.1, cm, 05/13/23 9:04:00 EDT, Height, 146.1, kg, 08/29/22 15:57:00 EST, Dry Weight Start Date: 06/14/23 Status: Ordered Tadalafil (Eqv-Cialis) 20 mg oral tablet 1 tablet, By Mouth, Daily, PRN NEEDED FOR ERECTILE DYSFUNCTION, # 5 tablet, 2 Refills, Maintenance, 06/13/23 18:58:00 EST, [facility], 176.1, cm, 05/13/23 9:04:00 EDT, Height, 146.1, [...] Maintenance, 12/17/22 6:36:00 EDT, Tablet, [facility]/pharmacy #[id number], Partial fill upon patient request if the prescription is for a schedule II opioid drug., 176.1, cm, 10/21/22 11:09:00 ED... Start Date: 12/17/22 Stop Date: 12/12/23 Status: Ordered valsartan 160 mg oral tablet 160 mg, 1, tablet, By Mouth, 2 times a day, # 180 tablet, Refills 4, Tot. Refills 4, Maintenance, 10/19/22 13:24:00 EDT, Route to Pharmacy Electronically, [facility]/pharmacy #[id number], Partial fill upon patient request if the [...] Brittani Anguiano RN Position: [facility] SN RN Member Role: Primary Care Nurse Name: Cortez Blunt MD Position: [facility] Physician - Primary Care Member Role: PCP Address: Address: [address] [place] [id number]- Name: Ron Babb RN Position: [facility] RN Member Role: Primary Care Nurse Care Team Related Persons Name: CECY NGUYEN Address: home [address] [place] [address] Name: LEIDY NGUYEN JR Address: home [address] [place] [address]
--- OUTSIDE RECORDS SUMMARY | 2024-05-03 22:15 | XMS_ITS | Continuity of Care Document ---
Author Organization [facility] [place] Address [address] [place] [address]- Care Team Providers Care Ramp Attendant Name Role Phone Merlene BYRNE, Cortez Kendall Primary Care Physician [place] [facility] [place] 07/13/23 [facility] [place] [address] [place] [address]- Allergies, Adverse Reactions, Alerts Substance Reaction Severity Status lisinopril cough Active penicillins Rash Active Immunizations Given and Recorded Vaccine Date Status Refusal Reason tetanus/diphtheria/pertussis, acel(Tdap) 1 12/20/17 Given 1Result Comment: [12/20/2017] [facility] [id number] Medications Acetaminophen Daily, 0 Refills, Maintenance, 09/10/22 [...] tablet, 3 Refills, Maintenance, 07/13/23 5:16:00 EST, [facility] 58680, 176.1, cm, 06/25/23 8:54:00 EST, Height, 146.1, kg, 08/29/22 15:57:00 EST, Dry Weight Start Date: 07/13/23 Status: Ordered Eliquis 5 mg oral tablet 1 tablet, By Mouth, 2 times a day, *STOP ASPIRIN*., # 60 tablet, 11 Refills, Maintenance, 07/13/23 5:16:00 EST, [facility], 176.1, cm, 06/25/23 8:54:00 EST, Height, 146.1, kg, 08/29/22 15:57:00 EST, Dry Weight Start Date: 07/13/23 Status: Ordered Farxiga 10 mg oral tablet 1 tablet = 10 mg, By Mouth, Daily, # 90 tablet, 4 Refills, Maintenance, 06/25/23 9:09:00 EST, Tablet, [facility]/pharmacy #[id number], Partial fill upon patient request if the prescription is for a schedule II opioid drug., 176.1, cm, 06/25/23 8:54:00 EST, Height,... Start Date: 06/25/23 Stop Date: 09/17/24 Status: Ordered gabapentin 100 mg oral capsule 2, capsule, By Mouth, Daily at bedtime, # 180 capsule, Refills 1, Tot. Refills 1, Maintenance, 05/10/23 13:26:00 EDT, Route to Pharmacy Electronically, [facility]/pharmacy #[id number], 176.1, cm, 05/10/23 13:05:00 EDT, Height, 146.1, kg, 08/29/22 15:57:00 EST, Dry... Start Date: 05/10/23 Status: Ordered LORazepam 2 mg oral tablet 1 tablet = 2 mg, By Mouth, Once, one hour prior to procedure, # 1 tablet, 0 Refills, Soft Stop, 06/10/23 5:16:00 EDT, Tablet, [facility]/pharmacy #[id number], Partial fill upon patient request if the prescriptionis for a schedule II opioid drug., 176.1, cm, 05/13... Start Date: 06/10/23 Status: Ordered Metoprolol Succinate ER 100 mg oral tablet, extended release 1 tablet, By Mouth, Daily, # 90 tablet, 3 Refills, Maintenance, 07/09/23 13:03:00 EST, [facility], 176.1, cm, 06/25/23 8:54:00 EST, Height, 146.1, [...] 06/14/23 8:05:00 EST, Route to Pharmacy Electronically, [facility] [id number], 176.1, cm, 05/13/23 9:04:00 EDT, Height, 146.1, kg, 08/29/22 15:57:00 EST, Dry Weight Start Date: 06/14/23 Status: Ordered Tadalafil (Eqv-Cialis) 20 mg oral tablet 1 tablet, By Mouth, Daily, PRN NEEDED FOR ERECTILE DYSFUNCTION, # 5 tablet, 2 Refills, Maintenance, 06/13/23 18:58:00 EST, [facility] 51493, 176.1, cm, 05/13/23 9:04:00 EDT, Height, 146.1, [...] 3 Refills, Maintenance, 12/17/22 6:36:00 EDT, Tablet, [facility]/pharmacy #[id number], Partial fill upon patient request if the prescription is for a schedule II opioid drug., 176.1, cm, 10/21/22 11:09:00 ED... Start Date: 12/17/22 Stop Date: 12/12/23 Status: Ordered valsartan 160 mg oral tablet 160 mg, 1, tablet, By Mouth, 2 times a day, # 180 tablet, Refills 4, Tot. Refills 4, Maintenance, 07/09/23 13:10:00 EST, Route to Pharmacy Electronically, [facility]/pharmacy #[id number], Partial fill upon patient request if the [...] Anguiano RN Position: [facility] SN RN Member Role: Primary Care Nurse Name: Cortez Blunt MD Position: [facility] Physician - Primary Care Member Role: PCP Address: Address: [address] [place] [address]- Name: Ron Babb RN Position: [facility] RN Member Role: Primary Care Nurse Care Team Related Persons Name: CECY NGUYEN Address: home [address] [place] [address] Name: LEIDY NGUYEN JR Address: [address] [place] [address]
[2024-05-03 22:21] LABS: Alanine Aminotransferase 12 U/L (0-40); Alkaline Phosphatase 86 U/L (39-117); Anion Gap 15 (12-20); Aspartate Amino Transferase 14 U/L (5-37); Bilirubin Direct 0.2 mg/dL (0.0-0.5); Bilirubin Total 0.8 mg/dL (0.0-1.0); Blood Urea Nitrogen 14 mg/dL (9-16); C Reactive Protein 2.49 mg/dL (< or = 0.50); Calcium 9.3 mg/dL (8.4-10.2); Carbon Dioxide 25 mmol/L (22-29); Chloride 109 mmol/L (96-108); Creatinine Clr Calc Pharmacy 104.1; Estimated Glomerular Filt Rate > 60; Glucose Random 116 mg/dL (60-115); Magnesium 2.1 mg/dL (1.6-2.6); Potassium 3.9 mmol/L (3.3-5.1); Sodium 145 mmol/L (135-145); Total Protein 6.6 g/dL (6.5-8.0)
[2024-05-03 22:28] LABS: Troponin-I High Sensitivity 4.2 ng/L (<3.5-35.0)
[2024-05-03 22:38] LABS: Erythrocyte Sedimentation Rate 18 MM/HR (0-15)
[2024-05-03] MEDS: diazePAM 5 MG TABLET PO (22:51)
[2024-05-03] MEDS: Ketorolac Tromethamine 15 MG/ML VIAL IM (22:51)
--- NOTE | 2024-05-03 23:01 | MHC.EDTECH ---
Patient repeated trop drawn an sent to lab .
[2024-05-03 23:23] LABS: Troponin-I High Sensitivity 3.6 ng/L (<3.5-35.0)
--- NOTE | 2024-05-03 23:36 | ED_ITS ---
HPI - General Adult General Chief complaint: General Medical Stated complaint: JAW AND NECK PAIN Time Seen by Provider: 05/03/24 21:22 Source: patient Limitations: no limitations History of Present Illness ED Provider: Lexi Rico PA-C HPI narrative: 63-year-old male with history of hypertension presents with muscle spasms x3 days. Patient states he caught his left upper arm on a julianne nail. Patient states when he sustained the puncture wound, he had been performing a great deal of physical activity and heavy lifting. Over the past several days he has developed muscle spasms over left neck and left upper chest. Pain is also worse with movement of the neck and movement of the left upper extremity. Patient is not sure when his last tetanus vaccine was, however he has been up-to-date on his vaccines in the past. Patient denies redness, warmth, swelling or pus draining from the puncture wound site. No fevers. Related Data Home Medications ?Medication ?Instructions ?Recorded ?Confirmed amlodipine 10 mg tablet 1 tab PO DAILY 03/27/21 03/27/21 aspirin 81 mg tablet 81 mg PO BEDTIME 03/27/21 03/27/21 doxazosin 4 mg tablet 1 tab PO DAILY 03/27/21 03/27/21 gabapentin 100 mg capsule 1 cap PO BEDTIME 03/27/21 03/27/21 irbesartan 150 mg tablet 1 tab PO DAILY 03/27/21 03/27/21 tadalafil 20 mg tablet 1 tab PO DAILY PRN intercourse 03/27/21 03/27/21 Previous Rx's ?Medication ?Instructions ?Recorded omeprazole 20 mg capsule,delayed 20 mg PO DAILY #14 caps 03/28/21 release prednisone 20 mg tablet 20 mg PO DAILY #21 tabs 03/28/21 ibuprofen 800 mg tablet 800 mg PO Q8H PRN pain #14 tabs 05/02/22 oxycodone 10 mg tablet 10 mg PO Q8H PRN severe pain 05/02/22 (scale score 7-10) #10 tabs cephalexin 500 mg capsule 500 mg PO QID #28 caps 05/03/24 meloxicam 15 mg tablet 15 mg PO DAILY #7 tabs 05/03/24 methocarbamol 1,000 mg tablet 2,000 mg (2 x 1,000 mg) PO TID PRN 05/03/24 spasms 24 hours #18 tabs Allergies Allergy/AdvReac Type Severity Reaction Status Date / Time Penicillins Allergy Unknown HIVES Verified 03/27/21 19:44 lisinopril Allergy Hives Verified 05/03/24 21:00 Review of Systems 2 Review of Systems: Yes all other systems are reviewed and are negative Constitutional: Constitutional: Denies fatigue and Denies fever(s) ENT: Reports neck pain Cardiovascular: Cardiovascular: Denies chest pain and Denies dyspnea Respiratory: Respiratory: Denies dyspnea Musculoskeletal: Musculoskeletal: Reports back pain, Denies arthralgias, Denies joint swelling, Reports muscle cramps, Denies muscle weakness, Reports neck pain and Denies tingling Neurologic: Denies tingling Endocrine: Endocrine: Denies fatigue PMFSH Past Medical History Attestation statement: The following information was validated with the patient. 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 HTN (hypertension) Social History Social History Household Members: Spouse Housing: House Do you presently have visiting nurse or other home services: No Alcohol intake: never Patient Tobacco Use Status: Never used Tobacco Advance Directives: No Advance Directives Information Provided: No Do you have a plan to hurt others: No Plan service: No Current occupational status: employed Physical Exam ED Vital Signs: Vital Signs - 24 hr 05/03/24 20:56 05/03/24 21:51 Temperature 99.5 F 99.1 F Pulse Rate 75 73 Respiratory Rate 16 16 Blood Pressure 175/88 H 146/76 H Pulse Oximetry 100 97 Oxygen Delivery Method Room Air Room Air BMI result Body Mass Index 51.6 Const Other: Alert well in appearance Orientation/consciousness: patient oriented x3 Neck Other: No midline tenderness of the cervical spine, patient will randomly wince as he is having a muscle spasm with certain movements of the neck or upper extremity on the left. Resp Effort & Inspection: normal respiratory effort Cardio Other: Normal peripheral perfusion Skin Other: Warm dry no rash Neuro General: patient oriented x3, no focal motor deficits and CN's II-XI intact bilaterally Extrem Other: Puncture wound noted in her left upper extremity, no overlying erythema, warmth no drainage from the site Psych Other: Calm cooperative Course Reevaluation(s) Reevaluation #1: Methocarbamol not helpful, we will add Valium Reevaluation #2: Patient further improved after Valium Medications Administered Discontinued Medications Generic Name Dose Route Start Last Admin Trade Name Janae PRN Reason Stop Dose Admin Diazepam 5 mg 05/03/24 22:47 05/03/24 22:51 Diazepam 5 Mg Tablet PO 05/03/24 22:48 5 mg ONCE ONE Administration Diphtheria/Tetanus/Acell Pertussis 0.5 ml 05/03/24 21:33 05/03/24 21:56 Diphth,Pertus(Acell),Tet Adult 0.5 Ml Syringe IM 05/03/24 21:34 0.5 ml .ONCE ONE Administration Ketorolac Tromethamine 15 mg 05/03/24 22:47 05/03/24 22:51 Ketorolac Tromethamine 15 Mg/Ml Vial IM 05/03/24 22:48 15 mg ONCE ONE Administration Methocarbamol 1,500 mg 05/03/24 21:33 05/03/24 21:56 Methocarbamol 750 Mg Tablet PO 05/03/24 21:34 1,500 mg ONCE ONE Administration Medical Decision Making Medical Decision Making MDM Narrative: 63-year-old male with history of hypertension presents with muscle spasms x3 days. Patient states he caught his left upper arm on a julianne nail. Patient states when he sustained the puncture wound, he had been performing a great deal of physical activity and heavy lifting. Over the past several days he has developed muscle spasms over left neck and left upper chest. Pain is also worse with movement of the neck and movement of the left upper extremity. Patient is not sure when his last tetanus vaccine was, however he has been up-to-date on his vaccines in the past. Patient denies redness, warmth, swelling or pus draining from the puncture wound site. No fevers. Problem: Hypertension History: Per patient I have considered the following differential diagnoses: Musculoskeletal strain, muscle spasm, electrolyte abnormality, cellulitis, purulent cellulitis Plan: Screening labs are in process, the patient does not have any evidence of cellulitis on exam. Given this is a puncture wound, we will cover his tetanus and start on prophylactic antibiotics. In regard to his musculoskeletal complaints, he has musculoskeletal strain with spasm. We will give Toradol and methocarbamol. He does not require imaging at this time I have independently reviewed the following tests: Labs: No leukocytosis, not anemic, no electrolyte abnormality Lab Data 05/03/24 21:57 05/03/24 21:57 Labs: Lab Results 05/03/24 05/03/24 05/03/24 Range/Units 21:57 21:57 22:58 WBC 9.0 (4.8-10.8) X10*3/uL RBC 4.12 L (4.60-5.80) X10*6/uL Hgb 13.0 L (14.0-18.0) g/dl Hct 36.1 L (42.0-52.0) % MCV 87.6 (80.0-98.0) fL MCH 31.6 (27.0-33.0) pg MCHC 36.0 (31.0-36.0) g/dl RDW 13.2 (11.0-16.0) % Plt Count 163 (160-400) X10*3/uL MPV 9.7 (9.4-12.4) fL Immature Gran % (Auto) 0.2 (0.0-0.4) % Neut % (Auto) 81.8 H (45-73) % Lymph % (Auto) 7.0 L (20-40) % [place] % (Auto) 8.5 (2-11) % Eos % (Auto) 2.2 (0-4) % Baso % (Auto) 0.3 (0-2) % Lymph # (Auto) 0.6 L (1.2-4.9) X10*3/uL [place] # (Auto) 0.8 (0.1-1.2) X10*3/uL Eos # (Auto) 0.2 (0.0-0.4) X10*3/uL Baso # (Auto) 0.0 (0.0-0.2) X10*3/uL Abs Immat Gran (auto) 0.02 (0.00-0.03) X10*3/uL Absolute Neuts (auto) 7.4 (2.0-8.3) x10*3/uL Absolute Nucleated RBC 0.000 (0.0-0.012) X10*3/uL Nucleated RBC % (auto) 0.0 (0.0-0.2) /100WBC ESR 18 H (0-15) MM/HR Sodium 145 (135-145) mmol/L Potassium 3.9 (3.3-5.1) mmol/L Chloride 109 H (96-108) mmol/L Carbon Dioxide 25 (22-29) mmol/L Anion Gap 15 (12-20) BUN 14 (9-16) mg/dL Creatinine 1.12 (0.5-1.4) mg/dL Estim Creat Clear Calc 104.1 Estimated GFR > 60 Random Glucose 116 H (60-115) mg/dL Calcium 9.3 9.5 (8.4-10.2) mg/dL Magnesium 2.1 (1.6-2.6) mg/dL Total Bilirubin 0.8 (0.0-1.0) mg/dL Direct Bilirubin 0.2 (0.0-0.5) mg/dL AST 14 (5-37) U/L ALT 12 (0-40) U/L Alkaline Phosphatase 86 (39-117) U/L Troponin I High Sens 4.2 3.6 (<3.5-35.0) ng/L C-Reactive Protein 2.49 H (< or = 0.50) mg/dL Total Protein 6.6 (6.5-8.0) g/dL Albumin 4.0 (3.5-5.0) g/dL Discharge Plan Discharge Clinical Impression: Muscle spasm, Musculoskeletal strain Patient Disposition: Home, Self-Care Instructions: Muscle Spasm (ED) Additional Instructions: All of your labs were normal, you do not have an electrolyte abnormality. You are being treated for musculoskeletal strain with spasm. See home care instructions. Continue to use the methocarbamol as needed for discomfort and spasm, to note, this medication will cause drowsiness do not drive or operate machinery while taking the medication. Use the meloxicam, this is an anti- inflammatory, as directed take it with food. Your tetanus vaccine was updated today, it is valid for 10 years. We are prophylactically treating you for potential development of wound infection, use the cephalexin as directed. To note, any antibiotic can cause diarrhea, you should take concurrent probiotics. Watch for signs of infection which would include redness, swelling or pus draining from the site. If you develop any of these symptoms, seek medical attention. Follow up with your primary care provider as needed. Prescriptions: New methocarbamol 1,000 mg tablet 2,000 mg PO TID PRN (Reason: spasms) 1 Days Qty: 18 0RF meloxicam 15 mg tablet 15 mg PO DAILY Qty: 7 0RF cephalexin 500 mg capsule 500 mg PO QID Qty: 28 0RF No Action amlodipine 10 mg tablet 1 tab PO DAILY doxazosin 4 mg tablet 1 tab PO DAILY aspirin 81 mg Tablet 81 mg PO BEDTIME gabapentin 100 mg capsule 1 cap PO BEDTIME irbesartan 150 mg tablet 1 tab PO DAILY tadalafil 20 mg tablet 1 tab PO DAILY PRN (Reason: intercourse) prednisone 20 mg tablet 20 mg PO DAILY Qty: 21 0RF Rx Instructions: Take 3 tablets of prednisone 20 mg (60mg)daily for 7 days with food omeprazole 20 mg capsule,delayed release(DR/EC) 20 mg PO DAILY Qty: 14 0RF oxycodone 10 mg tablet 10 mg PO Q8H PRN (Reason: severe pain (scale score 7-10)) Qty: 10 0RF Rx Instructions: Partial Fill upon patient request. ibuprofen 800 mg tablet 800 mg PO Q8H PRN (Reason: pain) Qty: 14 0RF Print Language: Mongolian
[2024-05-03 23:41] VITALS: BP 154/75; PULSE 62; RESP 16; TEMP 37.2; O2SAT 97
[2024-05-03] MEDS: cephALEXin 500 MG CAPSULE PO (23:51)
--- NOTE | 2024-05-03 23:52 | PC.NURSE ---
Medicated per MAR. Pt reports relief of pain, states pain has decreased to a 4/10. Pt awaiting DC paperwork.
[2024-05-04 00:02] VITALS: BP 0/0; PULSE 0; RESP 0; TEMP -17.7; TEMP 0; O2SAT 0
== END 2024-05-04 00:03 | disposition home or self-care (01) ==
PROVIDERS: Physician Assistant; Physician Assistant Medical; Emergency Provider Emergency Medicine; PCP Family Medicine
DX: M62.838 Other muscle spasm (principal); S16.1XXA Strain of muscle, fascia and tendon at neck level, initial encounter; X50.0XXA Overexertion from strenuous movement or load, initial encounter; S41.132A Puncture wound without foreign body of left upper arm, initial encounter; W45.0XXA Nail entering through skin, initial encounter; I10 Essential (primary) hypertension; Z79.82 Long term (current) use of aspirin; Z79.899 Other long term (current) drug therapy; Y93.9 Activity, unspecified; Y92.9 Unspecified place or not applicable; Y99.9 Unspecified external cause status; Z23 Encounter for immunization
CPT/HCPCS: 36415; 80048; 80076; 82310; 83735; 84484; 85025; 85652; 86140; 90471; 90715; 93005; 96372; 99284; J1885